=== PATIENT | male | born 1960 | race Caucasian/White ===

== ENCOUNTER 2017-12-24 07:35 | Inpatient (IN) | payer MEDICAID ==
[~2017-12-24] VITALS: Ht 172.7 cm; Wt 89.6 kg
[~2017-12-24 07:35] MED LIST: ALBUAER3 IN; CAR3125T PO; CLON05T PO; FURO20TA PO; LEVO112T4 PO; NICO2LOZ MT
[2017-12-24] MEDS ORDERED: chlordiazePOXIDE HCL 25 MG CAP PO ONE (08:00)
[2017-12-24] MEDS ORDERED: ASPirin 81 mg TAB PO ONE (08:00)
[2017-12-24 08:19] LABS: Basophils # (auto) 0.1 uL; Basophils % (auto) 1.3 % (0.0-2.0); Eosinophils # (auto) 0.1 uL; Eosinophils % (auto) 1.5 % (0.0-7.0); Hematocrit 51.6 % (41.0-53.0); Hemoglobin 17.3 g/dL (13.5-17.5); Lymphocytes # (auto) 1.4 uL; Lymphocytes % (auto) 18.2 % (10.0-50.0); Mean Corpuscular Hemoglobin 31.9 pg (28.0-32.0); Mean Corpuscular Hgb Conc. 33.5 g/dL (32.0-36.0); Mean Corpuscular Volume 95.3 fL (80.0-100.0); Monocytes # (auto) 0.7 uL; Monocytes % (auto) 8.5 % (0.0-12.0); Neutrophils # (auto) 5.4 uL; Neutrophils % (auto) 70.5 % (37.0-80.0); Nucleated Red Blood Cells % 0.1 %; Platelet Count (auto) 225 10^3/uL (140-450); Red Blood Cells 5.41 10^6/uL (4.5-5.90); Red Cell Distribution Width 15.8 % (11.8-14.3); White Blood Cell 7.7 10^3/uL (4.4-10.8)
[2017-12-24 08:52] LABS: Alanine Aminotransferase 56 U/L (16-61); Albumin 3.9 g/dL (3.4-5.0); Alkaline Phosphatase 85 U/L (45-117); Anion Gap 10 (5-15); Aspartate Aminotransferase 33 U/L (15-37); BUN/Creatinine Ratio 26.1; Bilirubin, Total 0.5 mg/dL (0.2-1.0); Blood Alcohol < 3.0 mg/dL (0-5); Blood Urea Nitrogen 35 mg/dL (7-18); Calcium 9.1 mg/dL (8.5-10.1); Carbon Dioxide 22 mmol/L (21-32); Chloride 109 mmol/L (98-107); GFR African American 70 mL/min; GFR Non-African American 58 mL/min; Glucose 106 mg/dL (74-106); Potassium 4.1 mmol/L (3.5-5.1); Sodium 141 mmol/L (136-145); Total Protein 7.6 g/dL (6.4-8.2)
[2017-12-24] MEDS ORDERED: NITROGLYCERIN 0.4 MG SL TAB SL PRN (09:15)
[2017-12-24] MEDS ORDERED: LACTULOSE 20Gm/30ML SOLN PO PRN (09:15)
[2017-12-24] MEDS ORDERED: ALBUTEROL SULF 2.5 MG/0.5ML(0.5%) NEB SOLN NEB PRN (09:30)
[2017-12-24] MEDS: CARVEDILOL 3.125 MG TAB PO SCH ×3 (10:00→22:06)
[2017-12-24] MEDS: FUROSEMIDE 40 MG/4 ML VIAL IV SCH (10:12)
[2017-12-24] MEDS: ENOXAPARIN SOD 40 MG/0.4 ML SYRINGE SC SCH (10:12)
[2017-12-24] MEDS: POTASSIUM CHL 20 Meq TABLET PO SCH (10:13)
[2017-12-24] MEDS: NITROGLYCERIN 0.2MG/HR TOPICAL PATCH TD SCH (10:13)
[2017-12-24] MEDS: LEVOTHYROXINE SODIUM 100 MCG TAB PO SCH (10:23)
[2017-12-24 11:00] LABS: Alcohol, Urine < 3.0 mg/dL (0-5); Amphetamine Screen, Urine POSITIVE (NEGATIVE); Barbiturate Scree,Urine NEGATIVE (NEGATIVE); Benzodiazephine Screen, Urine NEGATIVE (NEGATIVE); Cannabinoid Screen, Urine NEGATIVE (NEGATIVE); Cocaine Screen, Urine NEGATIVE (NEGATIVE); Opiate Scree,Urine NEGATIVE (NEGATIVE); Phencyclidine Screen, Urine NEGATIVE (NEGATIVE)
[2017-12-24] MEDS ORDERED: VENL150C58 PO (13:58)
[2017-12-24] MEDS: SODIUM CHLOR 0.9% PF (SALINE LOCK) 10ML VIAL/SYR IV SCH ×2 (14:04→22:06)
[2017-12-24] MEDS ORDERED: PROMETHAZINE HCL 25 MG/ML 1ML IV PRN (16:30)
[2017-12-24] MEDS ORDERED: LORazepam 0.5 MG TAB PO PRN (16:30)
[2017-12-24] MEDS ORDERED: KETOROLAC TROMETH 30 MG/ML 1ML VIAL IV PRN (16:30)
[2017-12-24] MEDS ORDERED: ACETAMINOPHEN 500 MG TAB PO PRN (16:30)
[2017-12-24] MEDS ORDERED: TEMAZEPAM 15 MG CAP PO PRN (16:30)
[2017-12-24] MEDS ORDERED: traMADol HCL 50 MG TAB PO PRN ×2 (16:30→17:15)
[2017-12-24] MEDS ORDERED: THIAMINE 100mg/ml INJ (200mg/2ml VIAL) IV ONE (17:00)
[2017-12-24] MEDS ORDERED: chlordiazePOXIDE HCL 25 MG CAP PO PRN (17:00)
[2017-12-24] MEDS: chlordiazePOXIDE HCL 5 MG CAP PO SCH (17:59)
[2017-12-24 19:34] VITALS: BP 101/69
[2017-12-24 21:58] VITALS: BP 100/62
[2017-12-24] MEDS: ATORVASTATIN 20 MG TAB PO SCH (22:05)
[2017-12-24 22:59] VITALS: BP 101/69
[2017-12-25] MEDS: chlordiazePOXIDE HCL 5 MG CAP PO SCH ×4 (00:20→17:41)
[2017-12-25] MEDS: SODIUM CHLOR 0.9% PF (SALINE LOCK) 10ML VIAL/SYR IV SCH ×3 (06:45→21:05)
[2017-12-25] MEDS: LEVOTHYROXINE SODIUM 100 MCG TAB PO SCH (07:01)
[2017-12-25 08:18] LABS: Basophils # (auto) 0.1 uL; Basophils % (auto) 0.9 % (0.0-2.0); Eosinophils # (auto) 0.3 uL; Eosinophils % (auto) 3.6 % (0.0-7.0); Hemoglobin 17.2 g/dL (13.5-17.5); Lymphocytes # (auto) 1.2 uL; Lymphocytes % (auto) 17.5 % (10.0-50.0); Mean Corpuscular Hemoglobin 32.6 pg (28.0-32.0); Mean Corpuscular Hgb Conc. 33.7 g/dL (32.0-36.0); Mean Corpuscular Volume 96.7 fL (80.0-100.0); Monocytes # (auto) 0.8 uL; Monocytes % (auto) 11.2 % (0.0-12.0); Neutrophils # (auto) 4.8 uL; Neutrophils % (auto) 66.8 % (37.0-80.0); Nucleated Red Blood Cells % 0.1 %; Platelet Count (auto) 216 10^3/uL (140-450); Red Blood Cells 5.27 10^6/uL (4.5-5.90); Red Cell Distribution Width 15.4 % (11.8-14.3); White Blood Cell 7.1 10^3/uL (4.4-10.8)
[2017-12-25 08:39] LABS: Albumin 3.7 g/dL (3.4-5.0); BUN/Creatinine Ratio 30.6; Bilirubin, Total 0.7 mg/dL (0.2-1.0); Calcium 8.6 mg/dL (8.5-10.1); Potassium 4.2 mmol/L (3.5-5.1); Total Protein 7.4 g/dL (6.4-8.2)
[2017-12-25 09:00] VITALS: BP 135/83
[2017-12-25] MEDS ORDERED: ASPirin 81 mg TAB PO SCH (10:00)
[2017-12-25] MEDS ORDERED: THIAMINE 100mg/ml INJ (200mg/2ml VIAL) IV SCH (10:00)
[2017-12-25] MEDS: NITROGLYCERIN 0.2MG/HR TOPICAL PATCH TD SCH (10:00)
[2017-12-25] MEDS: FUROSEMIDE 40 MG/4 ML VIAL IV SCH (10:47)
[2017-12-25] MEDS: POTASSIUM CHL 20 Meq TABLET PO SCH (10:48)
[2017-12-25] MEDS: CARVEDILOL 3.125 MG TAB PO SCH ×2 (10:48→21:04)
[2017-12-25] MEDS: ENOXAPARIN SOD 40 MG/0.4 ML SYRINGE SC SCH (10:49)
[2017-12-25 13:00] VITALS: BP 142/91
[2017-12-25] MEDS ORDERED: LISINOPRIL 5 MG TAB PO ONE (15:45)
[2017-12-25 17:05] VITALS: BP 150/90
[2017-12-25] MEDS: ATORVASTATIN 20 MG TAB PO SCH (21:04)
[2017-12-25 22:00] VITALS: BP 114/80
[2017-12-25] MEDS ORDERED: clonazePAM 0.5 MG TAB PO SCH (22:00)
[2017-12-26] MEDS: chlordiazePOXIDE HCL 5 MG CAP PO SCH ×2 (00:03→06:11)
[2017-12-26 05:00] VITALS: BP 114/77
[2017-12-26 06:07] LABS: BUN/Creatinine Ratio 32.1; Calcium 8.5 mg/dL (8.5-10.1); Potassium 3.7 mmol/L (3.5-5.1)
[2017-12-26] MEDS: SODIUM CHLOR 0.9% PF (SALINE LOCK) 10ML VIAL/SYR IV SCH (06:11)
[2017-12-26] MEDS: LEVOTHYROXINE SODIUM 100 MCG TAB PO SCH (06:11)
[2017-12-26 07:52] VITALS: BP 129/73
[2017-12-26 08:00] VITALS: BP 129/73
[2017-12-26] MEDS ORDERED: LISINOPRIL 5 MG TAB PO SCH (10:00)
[2017-12-26] MEDS ORDERED: VENLAFAXINE HCL 37.5mg XR cap PO SCH (10:00)
== END 2017-12-26 08:50 | disposition home or self-care (01) | DRG 812 ==
LOC: ER 07:35 → TELE 07:36 → TELE-WESTW 19:30
PROVIDERS: ADMIT Internal Medicine; ATTEND Internal Medicine
DX: T43.621A Poisoning by amphetamines, accidental (unintentional), initial encounter (principal); I11.0 Hypertensive heart disease with heart failure; I50.9 Heart failure, unspecified; I25.10 Atherosclerotic heart disease of native coronary artery without angina pectoris; F32.9 Major depressive disorder, single episode, unspecified; F15.90 Other stimulant use, unspecified, uncomplicated; E78.5 Hyperlipidemia, unspecified; E03.9 Hypothyroidism, unspecified; F41.9 Anxiety disorder, unspecified; J44.9 Chronic obstructive pulmonary disease, unspecified; F19.90 Other psychoactive substance use, unspecified, uncomplicated; K21.9 Gastro-esophageal reflux disease without esophagitis; Z82.49 Family history of ischemic heart disease and other diseases of the circulatory system; Z83.3 Family history of diabetes mellitus; Z88.5 Allergy status to narcotic agent; Z71.51 Drug abuse counseling and surveillance of drug abuser
CPT/HCPCS: 36415; 71046; 74176; 80048; 80053; 80061; 80307; 80320; 82550; 83880; 84443; 84484; 85025; 85379; 85652; 86141; 93005; 93306; 96372; 96374; 96375

== ENCOUNTER 2020-01-08 16:20 | Inpatient (IN) | payer MEDICAID ==
[~2020-01-08] VITALS: Ht 172.7 cm; Wt 94.5 kg
[~2020-01-08 16:20] MED LIST changes: +CLON0.5T3 PO; -CLON05T PO; -FURO20TA PO; +VENL150C58 PO
[2020-01-08] MEDS ORDERED: ALBUTEROL SULF 2.5 MG/0.5ML(0.5%) NEB SOLN NEB ONE (17:00)
[2020-01-08] MEDS ORDERED: IPRATROPIUM BROM 0.5 MG/2.5ML INH SOL NEB ONE (17:00)
[2020-01-08 17:12] LABS: Eosinophils # (auto) 0.4 10 ^3/uL (0-0.8); Mean Corpuscular Hemoglobin 30.1 pg (28.0-32.0); Platelet Count (auto) 268 10^3/uL (140-450); Red Blood Cells 5.93 10^6/uL (4.5-5.90)
[2020-01-08 17:13] LABS: Basophils # (auto) 0.1 10 ^3/uL (0-0.2); Basophils % (auto) 1.3 % (0.0-2.0); Eosinophils % (auto) 5.1 % (0.0-7.0); Hematocrit 54.7 % (41.0-53.0); Hemoglobin 17.8 g/dL (13.5-17.5); Lymphocytes # (auto) 1.7 10 ^3/uL (0.4-5.4); Lymphocytes % (auto) 21.3 % (10.0-50.0); Mean Corpuscular Hgb Conc. 32.6 g/dL (32.0-36.0); Mean Corpuscular Volume 92.4 fL (80.0-100.0); Monocytes # (auto) 0.8 10 ^3/uL (0-1.3); Monocytes % (auto) 10.2 % (0.0-12.0); Neutrophils # (auto) 4.9 10 ^3/uL (1.6-8.6); Neutrophils % (auto) 62.1 % (37.0-80.0); Nucleated Red Blood Cells % 0.1 %; Red Cell Distribution Width 15.5 % (11.8-14.3); White Blood Cell 7.9 10^3/uL (4.4-10.8)
[2020-01-08] MEDS ORDERED: methylPREDNISolone SOD SUCC 125 MG/2 ML VL IV ONE (17:30)
[2020-01-08] MEDS ORDERED: ONDANSETRON HCL 4 MG/2 ML VIAL IV ONE (17:30)
[2020-01-08 17:36] LABS: Alanine Aminotransferase 34 U/L (16-61); Albumin 3.5 g/dL (3.4-5.0); Anion Gap 7 (5-15); Blood Urea Nitrogen 16 mg/dL (7-18); Calcium 9.1 mg/dL (8.5-10.1); Carbon Dioxide 22 mmol/L (21-32); Chloride 110 mmol/L (98-107); Glucose 119 mg/dL (74-106); Potassium 4.3 mmol/L (3.5-5.1); Sodium 139 mmol/L (136-145)
[2020-01-08 17:41] LABS: Alkaline Phosphatase 88 U/L (45-117); Aspartate Aminotransferase 22 U/L (15-37); BUN/Creatinine Ratio 10.7; Bilirubin, Total 0.2 mg/dL (0.2-1.0); GFR African American 61 mL/min; GFR Non-African American 51 mL/min; Total Protein 7.3 g/dL (6.4-8.2)
[2020-01-08] MEDS ORDERED: cefTRIAXone 1GM/50ML D5W 50 ML IV ONE (19:00)
[2020-01-08 19:18] LABS: Urine Bacteria NONE SEEN /hpf (None Seen); Urine Blood Negative /uL (Negative); Urine Hyaline Cast MANY /lpf (0 - 2); Urine Mucus FEW (None Seen); Urine Specific Gravity 1.023 (1.001-1.035); Urine WBC 3 /hpf (0 - 3)
[2020-01-08] MEDS ORDERED: SODIUM CHLORIDE 0.9% 1,000 ML IV SCH (21:27)
[2020-01-08] MEDS ORDERED: METOCLOPRAMIDE HCL 5MG/ml INJ 2ml VIAL IV PRN (21:30)
[2020-01-08] MEDS ORDERED: DOCUSATE SOD 100 MG CAP PO PRN (21:30)
[2020-01-08] MEDS ORDERED: ACETAMINOPHEN 325 MG TAB PO PRN (21:30)
[2020-01-08] MEDS ORDERED: TEMAZEPAM 15 MG CAP PO PRN (21:30)
[2020-01-08] MEDS ORDERED: ALBUTEROL SULF 2.5 MG/0.5ML(0.5%) NEB SOLN NEB PRN (21:30)
[2020-01-08] MEDS ORDERED: IPRATROPIUM BROM 0.5 MG/2.5ML INH SOL NEB PRN (21:30)
[2020-01-08] MEDS: AZITHROMYCIN 250 MG TAB PO SCH (22:16)
[2020-01-08 23:21] VITALS: BP 145/108
--- NOTE | 2020-01-08 23:35 | NUR ---
MS admit from ER DAVIDXIAO admitted to tele/MS after no SBAR received. Patient oriented to LUIS MIGUEL BRYANT, RN primary RN, unit, room, bed, and unit policies regarding patient care and visiting hours. Patient weighed by bed scale and encouraged to call if they need something. All questions and concerns addressed, patient verbalized understanding.
[2020-01-09] VITALS (8 sets, daily range): BP systolic 114–148; BP diastolic 77–92
--- NOTE | 2020-01-09 03:26 | NUR ---
Patient reports feeling SOB. Spo2 is 97% on RA. Respirations are 22 and shallow. Placed on 2L NC. Will continue to monitor for changes PRN.
[2020-01-09 05:50] LABS: Basophils # (auto) 0 10 ^3/uL (0-0.2); Basophils % (auto) 0.4 % (0.0-2.0); Eosinophils # (auto) 0 10 ^3/uL (0-0.8); Hematocrit 52.2 % (41.0-53.0); Hemoglobin 16.5 g/dL (13.5-17.5); Lymphocytes # (auto) 0.6 10 ^3/uL (0.4-5.4); Lymphocytes % (auto) 5.4 % (10.0-50.0); Mean Corpuscular Hemoglobin 29.6 pg (28.0-32.0); Mean Corpuscular Hgb Conc. 31.7 g/dL (32.0-36.0); Mean Corpuscular Volume 93.6 fL (80.0-100.0); Monocytes # (auto) 0.1 10 ^3/uL (0-1.3); Monocytes % (auto) 0.8 % (0.0-12.0); Neutrophils # (auto) 11.3 10 ^3/uL (1.6-8.6); Neutrophils % (auto) 93.4 % (37.0-80.0); Platelet Count (auto) 239 10^3/uL (140-450); Red Blood Cells 5.58 10^6/uL (4.5-5.90); Red Cell Distribution Width 15.6 % (11.8-14.3); White Blood Cell 12.1 10^3/uL (4.4-10.8)
--- NOTE | 2020-01-09 06:05 | NUR ---
Respiratory note: ASSESSED PT FOR PRN MEDNEB TX. HR 104, RR 20, SPO2 96% ON 2LPM NASAL CANNULA. BREATH SOUNDS CLEAR/DIM T/O. NO S/S OF DISTRESS. MEDNEB TX NOT INDICATED AT THIS TIME. PT REMAINS ON ISOLATION PRECAUTIONS PENDING TEST RESULTS FOR COVID-19. PT AWARE TO CALL FOR RT IF NEEDED. WILL CONT TO MONITOR.
[2020-01-09 06:07] LABS: Potassium 4.8 mmol/L (3.5-5.1)
[2020-01-09 06:16] LABS: BUN/Creatinine Ratio 15.6; Calcium 8.7 mg/dL (8.5-10.1)
--- NOTE | 2020-01-09 07:04 | NUR ---
HOSPITALIST Spoke with Dr. Tanner regarding patient's home medication: Levothyroxine 125mcg QAM daily. New orders to continue while in patient. Will follow through.
--- NOTE | 2020-01-09 08:10 | NUR ---
Opening Shift Note Assumed care of patient, awake and alert. No S/S of distress/SOB or pain. Instructed on POC and to call for assist PRN, will continue to monitor for changes Q1hr and PRN.
[2020-01-09] MEDS ORDERED: methylPREDNISolone SOD SUCC 125 MG/2 ML VL IV SCH (10:00)
[2020-01-09] MEDS: cefTRIAXone 1GM/50ML D5W 50 ML IV SCH (10:50)
[2020-01-09] MEDS: AZITHROMYCIN 250 MG TAB PO SCH (10:50)
[2020-01-09] MEDS ORDERED: ALBUTEROL SULF HFA 90MCG INH 200DOSE IN SCH (12:00)
--- NOTE | 2020-01-09 12:00 | NUR ---
MDI THERAPY HELD AT THIS TIME, PENDING TEST RESULTS FOR COVID-19
[2020-01-09] MEDS ORDERED: CARVEDILOL 3.125 MG TAB PO ONE (12:15)
[2020-01-09] MEDS ORDERED: clonazePAM 0.5 MG TAB PO ONE (12:15)
--- NOTE | 2020-01-09 13:15 | NUR ---
Dr. Servin at bedside.
--- NOTE | 2020-01-09 13:20 | NUR ---
Report given to Michelle HERMAN, patient is going to room 206
--- NOTE | 2020-01-09 13:40 | NUR ---
Patient transferred to room 206. Patient was ambulated with steady gait by this nurse and Sally LANCASTER to [facility], no s/s of distress/sob noted /stated.
--- NOTE | 2020-01-09 13:45 | NUR ---
PATIENT TRANSFERRED TO ROOM 206. PATIENT IS AWAKE, ALERT, AND ORIENTED X4. PATIENT HAS NO S/S OF DISTRESS/SOB OR PAIN. INSTRUCTED PATIENT ON POC, PATIENT VERBALIZED UNDERSTANDING. BED IS IN LOWEST POSITION WITH SIDE RAILS RAISED, BED WHEELS LOCKED, AND CALL LIGHT IS WITHIN REACH. WILL CONTINUE TO MONITOR.
--- NOTE | 2020-01-09 14:11 | NUR ---
Nutrition Assessment Notes Please refer to link for full assessment notes. Est Energy needs: [id number] kcals (17-20 kcal/kgBW) Est Protein needs: 74-92 gms/day (0.8-1.0 gm/kgBW) Will continue to monitor and reassess prn. Addendum: 01/09/20 at [email or web address] Amended: Links added.
--- NOTE | 2020-01-09 18:58 | NUR ---
CLOSING SHIFT NOTE ENDORSED CARE TO AIRCRAFT WORKER RN . PATIENT HAS NO S/S OF DISTRESS/SOB OR PAIN AT THIS TIME.
--- NOTE | 2020-01-09 19:00 | NUR ---
Opening Shift Note Assumed care of patient, awake and alert. No S/S of distress/SOB or pain. Instructed on POC and to call for assist PRN, will continue to monitor for changes.
--- NOTE | 2020-01-09 19:00 | NUR ---
Respiratory note: PT ASSESSED FOR PRN MED NEB TX. HR 108, RR 16, SPO2 96% ON RA. NO S/S OF ANY RESPIRATORY DISTRESS NOTED. ADVISED PT TO CALL IF TX IS NEEDED.
--- NOTE | 2020-01-09 19:10 | NUR ---
OPENING SHIFT NOTE ASSUMED CARE OF PATIENT. PATIENT IS AWAKE, ALERT, AND ORIENTED X4. PATIENT HAS NO S/S OF DISTRESS/SOB, PATIENT COMPLAINED OF PAIN. INSTRUCTED PATIENT ON POC, PATIENT VERBALIZED UNDERSTANDING. BED IS IN LOWEST POSITION WITH SIDE RAILS RAISED X2, BED WHEELS LOCKED, NEAL IS HANGING BELOW BLADDER ALSO PATIENT HAS BILATERAL NEPHROSTOME TUBES AND IS DRAINING YELLOW URINE WITH LOT OF SEDIMENT, BEDSIDE COMMODE AND CALL LIGHT IS WITHIN REACH. WILL CONTINUE TO MONITOR. Addendum: 01/10/20 at 0302 by NISH PAGE RN WRONG PATIENT
[2020-01-09] MEDS: clonazePAM 0.5 MG TAB PO SCH (21:24)
[2020-01-09] MEDS: CARVEDILOL 3.125 MG TAB PO SCH (21:26)
[2020-01-09] MEDS ORDERED: CARVEDILOL 3.125 MG TAB PO SCH (22:00)
[2020-01-10 05:14] VITALS: BP 129/82
[2020-01-10 05:37] LABS: Calcium 8.5 mg/dL (8.5-10.1); Potassium 4.9 mmol/L (3.5-5.1)
[2020-01-10] MEDS ORDERED: LEVOTHYROXINE SODIUM 50 MCG TAB PO SCH (07:00)
[2020-01-10] MEDS ORDERED: LEVOTHYROXINE SODIUM 112 MCG TAB PO SCH (07:00)
[2020-01-10 09:00] VITALS: BP 134/79
[2020-01-10] MEDS: CARVEDILOL 3.125 MG TAB PO SCH (10:00)
[2020-01-10] MEDS ORDERED: VENLAFAXINE HCL 37.5mg XR cap PO SCH (10:00)
[2020-01-10] MEDS: cefTRIAXone 1GM/50ML D5W 50 ML IV SCH (10:16)
[2020-01-10] MEDS: AZITHROMYCIN 250 MG TAB PO SCH (10:17)
[2020-01-10] MEDS: clonazePAM 0.5 MG TAB PO SCH (10:17)
[2020-01-10 13:00] VITALS: BP 144/98
[2020-01-10] MEDS ORDERED: DOXY-286 PO (15:10)
[2020-01-10] MEDS ORDERED: AMLO10TA13 PO (15:12)
[2020-01-10 16:01] VITALS: BP 134/79
--- NOTE | 2020-01-10 17:35 | NUR ---
Patient discharged via wheelchair along with all personal belongings, no distress noted at time of departure.
== END 2020-01-10 16:30 | disposition home or self-care (01) | DRG 194 ==
LOC: ER 16:20 → EDBD 16:20 → OVERFLOW 16:21 → EAST 23:35 → CENTRAL 01-09 13:40
PROVIDERS: ADMIT Hospitalist; ATTEND Internal Medicine Nephrology
DX: I13.0 Hypertensive heart and chronic kidney disease with heart failure and stage 1 through stage 4 chronic kidney disease, or unspecified chronic kidney disease (principal); E03.9 Hypothyroidism, unspecified; E11.22 Type 2 diabetes mellitus with diabetic chronic kidney disease; E66.9 Obesity, unspecified; E78.5 Hyperlipidemia, unspecified; I25.10 Atherosclerotic heart disease of native coronary artery without angina pectoris; N17.0 Acute kidney failure with tubular necrosis; K21.9 Gastro-esophageal reflux disease without esophagitis; F41.9 Anxiety disorder, unspecified; F32.9 Major depressive disorder, single episode, unspecified; I50.33 Acute on chronic diastolic (congestive) heart failure; J44.9 Chronic obstructive pulmonary disease, unspecified; N18.3 Chronic kidney disease, stage 3 (moderate); Z20.828 Contact with and (suspected) exposure to other viral communicable diseases; Z80.3 Family history of malignant neoplasm of breast; Z82.49 Family history of ischemic heart disease and other diseases of the circulatory system; Z83.3 Family history of diabetes mellitus; Z87.891 Personal history of nicotine dependence; Z88.5 Allergy status to narcotic agent; Z79.84 Long term (current) use of oral hypoglycemic drugs; Z68.31 Body mass index [BMI] 31.0-31.9, adult
CPT/HCPCS: 36415; 36600; 71045; 80048; 80053; 80061; 81001; 82805; 82962; 83036; 83605; 83735; 83880; 84484; 85025; 87040; 87070; 87426; 87804; 87880; 93005; 93306; 94640; 96361; 96365; 96375; G0378; J0696

== ENCOUNTER 2022-04-21 07:54 | Day surgery (SDC) | payer MEDICAID ==
[2022-04-21] VITALS (7 sets, daily range): BP systolic 90–119; BP diastolic 49–84
[~2022-04-21] VITALS: Ht 172.7 cm; Wt 94.3 kg
[~2022-04-21 07:54] MED LIST changes: +FURO1TAB33 PO; -LEVO112T4 PO; +LEVO125T7 PO; +LOSA25TA38 PO; -NICO2LOZ MT; +POM
[2022-04-21] MEDS ORDERED: HEPARIN SODIUM (PORCINE) 5000 UNITS/ML 1ML VIAL ONE (11:13)
[2022-04-21] MEDS ORDERED: fentaNYL CITRATE 100 MCG/2 ML VL ONE (11:13)
[2022-04-21] MEDS ORDERED: VERAPAMIL 2.5MG/ML INJ 2ML VIAL IV ONE (11:13)
[2022-04-21] MEDS ORDERED: ANGIOMAX 250 MG VIAL IV ONE (11:13)
[2022-04-21] MEDS ORDERED: SODIUM CHL 0.9% 0 ML ONE (11:14)
[2022-04-21] MEDS ORDERED: MIDAZOLAM HCL 2MG/2ML 2ml VIAL (1mg/ml) ONE (11:14)
== END 2022-04-21 14:55 | disposition home or self-care (01) ==
LOC: CATH 07:54
PROVIDERS: ATTEND Internal Medicine
DX: R94.39 Abnormal result of other cardiovascular function study (principal); I25.118 Atherosclerotic heart disease of native coronary artery with other forms of angina pectoris; I42.8 Other cardiomyopathies; I50.9 Heart failure, unspecified; Z88.8 Allergy status to other drugs, medicaments and biological substances; Z20.822 Contact with and (suspected) exposure to COVID-19
CPT/HCPCS: 93458; C1769; C1887; C1894; J1644; J2250; J3010; U0003; 99152

== ENCOUNTER 2023-08-02 19:18 | Emergency (ER) | payer MEDICAID ==
[~2023-08-02] VITALS: Ht 182.9 cm; Wt 81.8 kg
[~2023-08-02 19:18] MED LIST changes: +LOSA-533 PO; -LOSA25TA38 PO
[2023-08-02 19:43] LABS: Hematocrit 49.3 % (41.0-53.0); Hemoglobin 16.1 g/dL (13.5-17.5); Mean Corpuscular Hgb Conc. 32.6 g/dL (32.0-36.0); Mean Corpuscular Volume 95.1 fL (80.0-100.0); Red Blood Cells 5.19 10^6/uL (4.5-5.90); White Blood Cell 7.8 10^3/uL (4.4-10.8)
[2023-08-02] MEDS: methylPREDNISolone SOD SUCC 125 MG/2 ML VL IV ONE (19:45)
[2023-08-02] MEDS: ALBUTEROL SULF 2.5 MG/0.5ML(0.5%) NEB SOLN HHN ONE (19:46)
[2023-08-02] MEDS: IPRATROPIUM BROM 0.5 MG/2.5ML INH SOL HHN ONE (19:46)
[2023-08-02 19:53] LABS: Band Neutrophils % (manual) 0; Basophils % (manual) 0 (0.0-2.0); Blast Cells 0; Metamyelocytes % 0; Myelocytes % 0; Promyelocytes % 0; Reactive Lymphocytes 0
[2023-08-02 20:05] LABS: Eosinophils % (manual) 13 (0-7); Lymphocytes % (manual) 28 (10.0-50.0); Monocytes % (manual) 8 (0-12); Platelet Estimate Adequate
[2023-08-02 20:23] LABS: Alanine Aminotransferase 26 U/L (7-40); Albumin 3.9 g/dL (3.2-4.8); Alkaline Phosphatase 91 U/L (46-116); Anion Gap 6 (5-15); Aspartate Aminotransferase 23 U/L (13-40); BUN/Creatinine Ratio 14.4 (10.0-20.0); Blood Urea Nitrogen 22 mg/dL (9-23); Calcium 7.9 mg/dL (8.5-10.1); Carbon Dioxide 27 mmol/L (20-30); Chloride 110 mmol/L (98-107); Glucose 73 mg/dL (74-106); Potassium 4.8 mmol/L (3.5-5.1); Sodium 143 mmol/L (136-145)
[2023-08-02 20:24] LABS: Bilirubin, Total 0.2 mg/dL (0.2-1.0); Total Protein 6.5 g/dL (5.7-8.2)
[2023-08-02] MEDS ORDERED: METH4PAK PO (21:01)
[2023-08-02 21:26] VITALS: BP 128/90; PULSE 97; RESP 18; TEMP 97.8; O2SAT 94
== END 2023-08-02 21:11 | disposition admitted as inpatient to this hospital (09) ==
LOC: ER 19:18 → EDBD 19:18 → ER 21:11
DX: J44.1 Chronic obstructive pulmonary disease with (acute) exacerbation (principal); I13.0 Hypertensive heart and chronic kidney disease with heart failure and stage 1 through stage 4 chronic kidney disease, or unspecified chronic kidney disease; N18.9 Chronic kidney disease, unspecified; I50.9 Heart failure, unspecified; I25.10 Atherosclerotic heart disease of native coronary artery without angina pectoris; F41.9 Anxiety disorder, unspecified; F32.9 Major depressive disorder, single episode, unspecified; E78.5 Hyperlipidemia, unspecified; K21.9 Gastro-esophageal reflux disease without esophagitis; F17.210 Nicotine dependence, cigarettes, uncomplicated; Z98.890 Other specified postprocedural states
CPT/HCPCS: 36415; 71045; 80053; 83880; 84484; 85007; 85027; 93005; 94640; 96374; 99285; J2930; J7644

== ENCOUNTER 2023-09-13 11:13 | Inpatient (IN) | payer MEDICAID ==
[~2023-09-13] VITALS: Ht 175.3 cm; Wt 104.0 kg
[~2023-09-13 11:13] MED LIST changes: +METH4PAK PO
[2023-09-13] MEDS: methylPREDNISolone SOD SUCC 125 MG/2 ML VL IV ONE (11:38)
[2023-09-13 11:51] LABS: Basophils # (auto) 0.1 10 ^3/uL (0-0.2); Basophils % (auto) 1.4 % (0.0-2.0); Eosinophils # (auto) 0.3 10 ^3/uL (0-0.8); Eosinophils % (auto) 5.1 % (0.0-7.0); Hematocrit 49.8 % (41.0-53.0); Hemoglobin 15.9 g/dL (13.5-17.5); Lymphocytes # (auto) 1.4 10 ^3/uL (0.4-5.4); Lymphocytes % (auto) 20.9 % (10.0-50.0); Mean Corpuscular Hgb Conc. 31.9 g/dL (32.0-36.0); Mean Corpuscular Volume 94.2 fL (80.0-100.0); Monocytes # (auto) 0.6 10 ^3/uL (0-1.3); Neutrophils # (auto) 4.1 10 ^3/uL (1.6-8.6); Neutrophils % (auto) 62.6 % (37.0-80.0); Nucleated Red Blood Cells % 0.1 %; Red Blood Cells 5.29 10^6/uL (4.5-5.90); Red Cell Distribution Width 15.6 % (11.8-14.3); White Blood Cell 6.5 10^3/uL (4.4-10.8)
[2023-09-13 12:00] VITALS: PULSE 76; RESP 23; O2SAT 100
[2023-09-13 12:06] LABS: INR 1.05 (0.9-1.15); Partial Thromboplastin Time 25.3 SEC (24.5-34.5); Prothrombin Time 11.1 sec (9.3-11.8)
[2023-09-13 12:09] LABS: Alanine Aminotransferase 32 U/L (7-40); Albumin 4.1 g/dL (3.2-4.8); Alkaline Phosphatase 83 U/L (46-116); Anion Gap 4 (5-15); Aspartate Aminotransferase 36 U/L (13-40); BUN/Creatinine Ratio 11.3 (10.0-20.0); Bilirubin, Total 0.3 mg/dL (0.2-1.0); Blood Urea Nitrogen 15 mg/dL (9-23); Calcium 9.3 mg/dL (8.5-10.1); Carbon Dioxide 27 mmol/L (20-30); Chloride 108 mmol/L (98-107); Glucose 94 mg/dL (74-106); Potassium 4.4 mmol/L (3.5-5.1); Sodium 139 mmol/L (136-145); Total Protein 6.3 g/dL (5.7-8.2)
[2023-09-13 13:23] LABS: Urine Bacteria None Seen /hpf (None Seen)
[2023-09-13 13:36] LABS: Urine Blood Negative /uL (Negative); Urine Clarity Clear (Clear); Urine Color Light-Yellow (Yellow); Urine Protein, UAD Negative (Negative); Urine Specific Gravity 1.017 (1.001-1.035); Urine Urobilinogen Normal (Negative); Urine WBC <1 /hpf (0 - 3)
[2023-09-13] MEDS: IPRATROPIUM BROM 0.5 MG/2.5ML INH SOL HHN ONE (13:42)
[2023-09-13] MEDS: ALBUTEROL SULF 2.5 MG/0.5ML(0.5%) NEB SOLN HHN ONE (13:42)
[2023-09-13] MEDS ORDERED: ALBUTEROL SULF 2.5 MG/0.5ML(0.5%) NEB SOLN NEB PRN (15:45)
[2023-09-13] MEDS: PANTOPRAZOLE 40 MG TAB PO ONE (16:41)
[2023-09-13] MEDS: FUROSEMIDE 20 MG/2 ML VIAL IV ONE (16:41)
[2023-09-13 16:46] LABS: Triglycerides 122 mg/dL (< 150)
[2023-09-13 16:47] LABS: LDL Cholesterol 90 mg/dL (< 100)
[2023-09-13 16:49] LABS: Cholesterol 153 mg/dL (< 200); HDL Cholesterol 47 mg/dL (40-59)
[2023-09-13 18:35] VITALS: PULSE 91; RESP 22; O2SAT 95; O2SAT 96
[2023-09-13] MEDS: ALBUTEROL SULF 2.5 MG/0.5ML(0.5%) NEB SOLN NEB SCH (18:35)
[2023-09-13] MEDS: IPRATROPIUM BROM 0.5 MG/2.5ML INH SOL NEB SCH (18:35)
[2023-09-13 18:41] VITALS: PULSE 91; RESP 20; O2SAT 98
[2023-09-13 19:30] VITALS: PULSE 86; RESP 13; O2SAT 92
[2023-09-13] MEDS: clonazePAM 0.5 MG TAB PO SCH (20:41)
[2023-09-13] MEDS: ATORVASTATIN 20 MG TAB PO SCH (22:10)
[2023-09-13] MEDS: CARVEDILOL 3.125 MG TAB PO SCH (22:10)
[2023-09-14] VITALS (11 sets, daily range): BP systolic 107–137; BP diastolic 71–95; PULSE 72–97; RESP 16–20; TEMP 97.4–98.4; O2SAT 94–97
[2023-09-14 06:29] LABS: Basophils # (auto) 0 10 ^3/uL (0-0.2); Basophils % (auto) 0.3 % (0.0-2.0); Eosinophils # (auto) 0 10 ^3/uL (0-0.8); Hemoglobin 15.5 g/dL (13.5-17.5); Lymphocytes # (auto) 0.7 10 ^3/uL (0.4-5.4); Lymphocytes % (auto) 5.1 % (10.0-50.0); Mean Corpuscular Hemoglobin 30.4 pg (28.0-32.0); Mean Corpuscular Hgb Conc. 32.9 g/dL (32.0-36.0); Mean Corpuscular Volume 92.3 fL (80.0-100.0); Monocytes # (auto) 0.6 10 ^3/uL (0-1.3); Monocytes % (auto) 4.5 % (0.0-12.0); Neutrophils # (auto) 12.3 10 ^3/uL (1.6-8.6); Neutrophils % (auto) 90.1 % (37.0-80.0); Red Cell Distribution Width 15.2 % (11.8-14.3); White Blood Cell 13.7 10^3/uL (4.4-10.8)
[2023-09-14] MEDS: LEVOTHYROXINE SODIUM 25 MCG TAB PO SCH (06:31)
[2023-09-14] MEDS: LEVOTHYROXINE SODIUM 100 MCG TAB PO SCH (06:31)
[2023-09-14 07:01] LABS: Alanine Aminotransferase 24 U/L (7-40); Alkaline Phosphatase 66 U/L (46-116); Anion Gap 9 (5-15); Aspartate Aminotransferase 20 U/L (13-40); BUN/Creatinine Ratio 13.7 (10.0-20.0); Bilirubin, Total 0.5 mg/dL (0.2-1.0); Blood Urea Nitrogen 18 mg/dL (9-23); Calcium 9.4 mg/dL (8.5-10.1); Carbon Dioxide 23 mmol/L (20-30); Chloride 107 mmol/L (98-107); Glucose 123 mg/dL (74-106); Potassium 4.6 mmol/L (3.5-5.1); Sodium 139 mmol/L (136-145); Total Protein 6.2 g/dL (5.7-8.2)
[2023-09-14] MEDS: NICOTINE 14 MG/24HR TOPICAL PATCH TD SCH (07:36)
[2023-09-14] MEDS: ENOXAPARIN SOD 40 MG/0.4 ML SYRINGE SC SCH (10:02)
[2023-09-14] MEDS: PANTOPRAZOLE 40 MG TAB PO SCH (10:03)
[2023-09-14] MEDS: LOSARTAN POTASSIUM 25 MG TAB PO SCH (10:03)
[2023-09-14] MEDS: FUROSEMIDE 20 MG/2 ML VIAL IV SCH (10:04)
[2023-09-14] MEDS: VENLAFAXINE HCL 37.5mg XR cap PO SCH (10:13)
[2023-09-14] MEDS: metOLazone 5 MG TAB PO ONE (15:07)
[2023-09-14] MEDS ORDERED: CARV6.2551 PO (16:25)
[2023-09-14] MEDS ORDERED: TAMS0.4C36 PO (16:31)
[2023-09-14] MEDS ORDERED: DAPA1TAB4 PO (16:31)
[2023-09-14] MEDS ORDERED: VENL75CA78 PO (16:31)
[2023-09-15] VITALS (17 sets, daily range): BP systolic 92–137; BP diastolic 60–95; PULSE 67–112; RESP 16–24; TEMP 97.5–98.7; O2SAT 94–100
[2023-09-15] MEDS: ALBUTEROL SULF 2.5 MG/0.5ML(0.5%) NEB SOLN NEB PRN (04:12)
[2023-09-15] MEDS: IPRATROPIUM BROM 0.5 MG/2.5ML INH SOL NEB PRN (04:12)
[2023-09-15] MEDS: SACUBITRIL-VALSARTAN 24mg/26mg TAB PO SCH (10:13)
[2023-09-15 12:35] LABS: Amphetamine Screen, Urine Neg (NEGATIVE); Barbiturate Scree,Urine Neg (NEGATIVE); Benzodiazephine Screen, Urine Neg (NEGATIVE)
[2023-09-15 12:36] LABS: Cannabinoid Screen, Urine Neg (NEGATIVE); Cocaine Screen, Urine Neg (NEGATIVE); Opiate Scree,Urine Neg (NEGATIVE); Phencyclidine Screen, Urine Neg (NEGATIVE)
[2023-09-15] MEDS: ACETAMINOPHEN 325 MG TAB PO PRN (13:48)
[2023-09-16 01:00] VITALS: BP 86/65; PULSE 80; RESP 18; TEMP 98; O2SAT 93
[2023-09-16 05:00] VITALS: BP 91/58; PULSE 88; RESP 20; TEMP 98; O2SAT 95
[2023-09-16 07:12] VITALS: O2SAT 99
[2023-09-16 08:56] VITALS: BP 95/66; PULSE 86; RESP 21; TEMP 98.4; O2SAT 98
[2023-09-16] MEDS ORDERED: SACU1TAB PO (11:36)
[2023-09-16] MEDS ORDERED: FURO1TAB33 PO (11:36)
[2023-09-16 11:41] VITALS: PULSE 90
[2023-09-16 12:35] VITALS: BP 92/68; PULSE 77; RESP 19; TEMP 98.8; O2SAT 98
== END 2023-09-16 14:33 | disposition home or self-care (01) | DRG 140 ==
LOC: ER 11:13 → EDBD 11:13 → OVERFLOW 15:46 → WEST WING 09-14 08:02 → TELE-WESTW 09-15 04:49
PROVIDERS: ADMIT Nurse Practitioner Family; ATTEND Family Medicine
DX: J44.1 Chronic obstructive pulmonary disease with (acute) exacerbation (principal); J96.21 Acute and chronic respiratory failure with hypoxia; I50.43 Acute on chronic combined systolic (congestive) and diastolic (congestive) heart failure; I11.0 Hypertensive heart disease with heart failure; E03.9 Hypothyroidism, unspecified; F41.9 Anxiety disorder, unspecified; K21.9 Gastro-esophageal reflux disease without esophagitis; F17.210 Nicotine dependence, cigarettes, uncomplicated; F32.A Depression, unspecified; E78.00 Pure hypercholesterolemia, unspecified; I25.10 Atherosclerotic heart disease of native coronary artery without angina pectoris; Z95.0 Presence of cardiac pacemaker; Z82.49 Family history of ischemic heart disease and other diseases of the circulatory system; Z83.3 Family history of diabetes mellitus; Z80.3 Family history of malignant neoplasm of breast
CPT/HCPCS: 36415; 71045; 80053; 80061; 80307; 80320; 81001; 82962; 83880; 84443; 84484; 85025; 85610; 85730; 93005; 93306; 94640; 96374; G0378

== ENCOUNTER 2024-01-31 07:40 | Emergency (ER) | payer MEDICAID ==
[~2024-01-31] VITALS: Ht 172.7 cm; Wt 86.4 kg
[~2024-01-31 07:40] MED LIST changes: -ALBUAER3 IN; -CAR3125T PO; +CARV6.2551 PO; +DAPA1TAB4 PO; -METH4PAK PO; -POM; +SACU1TAB PO; +TAMS0.4C39 PO; +VENL75CA78 PO
[2024-01-31 07:49] VITALS: RESP 20; O2SAT 97
[2024-01-31 07:52] VITALS: BP 115/65; PULSE 78; RESP 20; TEMP 97.5; O2SAT 97
[2024-01-31 08:09] LABS: Basophils # (auto) 0 10 ^3/uL (0-0.2); Basophils % (auto) 0.5 % (0.0-2.0); Eosinophils # (auto) 0.6 10 ^3/uL (0-0.8); Eosinophils % (auto) 9.4 % (0.0-7.0); Hemoglobin 14.9 g/dL (13.5-17.5); Lymphocytes # (auto) 1.5 10 ^3/uL (0.4-5.4); Lymphocytes % (auto) 21.5 % (10.0-50.0); Mean Corpuscular Hemoglobin 31.6 pg (28.0-32.0); Mean Corpuscular Hgb Conc. 33.9 g/dL (32.0-36.0); Mean Corpuscular Volume 93.1 fL (80.0-100.0); Monocytes # (auto) 0.6 10 ^3/uL (0-1.3); Monocytes % (auto) 8.5 % (0.0-12.0); Neutrophils # (auto) 4.1 10 ^3/uL (1.6-8.6); Neutrophils % (auto) 60.1 % (37.0-80.0); Nucleated Red Blood Cells % 0.3 %; Platelet Count (auto) 206 10^3/uL (140-450); Red Blood Cells 4.73 10^6/uL (4.5-5.90); Red Cell Distribution Width 15.3 % (11.8-14.3); White Blood Cell 6.8 10^3/uL (4.4-10.8)
[2024-01-31] MEDS ORDERED: methylPREDNISolone SOD SUCC 125 MG/2 ML VL IV ONE (08:15)
[2024-01-31] MEDS ORDERED: IPRATROPIUM BROM 0.5 MG/2.5ML INH SOL NEB ONE (08:15)
[2024-01-31] MEDS ORDERED: ALBUTEROL SULF 2.5 MG/0.5ML(0.5%) NEB SOLN NEB ONE (08:15)
[2024-01-31 08:18] LABS: Chloride 110 mmol/L (98-107); Potassium 4.2 mmol/L (3.5-5.1); Sodium 142 mmol/L (136-145)
[2024-01-31 08:19] LABS: Anion Gap 5 (5-15); Calcium 9.1 mg/dL (8.7-10.4); Carbon Dioxide 27 mmol/L (20-30)
[2024-01-31 08:24] LABS: BUN/Creatinine Ratio 13.6 (10.0-20.0); Blood Urea Nitrogen 18 mg/dL (9-23); Glucose 92 mg/dL (74-106)
[2024-02-01] MEDS ORDERED: VENL150T34 PO ×2 (04:59)
== END 2024-01-31 09:11 | disposition left against medical advice (07) ==
LOC: ER 07:40 → EDBD 07:40 → ER 08:22
DX: J96.00 Acute respiratory failure, unspecified whether with hypoxia or hypercapnia (principal); J44.1 Chronic obstructive pulmonary disease with (acute) exacerbation; I13.0 Hypertensive heart and chronic kidney disease with heart failure and stage 1 through stage 4 chronic kidney disease, or unspecified chronic kidney disease; N18.9 Chronic kidney disease, unspecified; I50.9 Heart failure, unspecified; K21.9 Gastro-esophageal reflux disease without esophagitis; E78.5 Hyperlipidemia, unspecified; F17.210 Nicotine dependence, cigarettes, uncomplicated
CPT/HCPCS: 36415; 80048; 83880; 84484; 85025; 99291

== ENCOUNTER 2024-01-31 15:38 | Inpatient (IN) | payer MEDICAID ==
[~2024-01-31] VITALS: Ht 172.7 cm; Wt 84.1 kg
[2024-01-31 16:27] LABS: Basophils # (auto) 0 10 ^3/uL (0-0.2); Basophils % (auto) 0.4 % (0.0-2.0); Eosinophils # (auto) 0.6 10 ^3/uL (0-0.8); Eosinophils % (auto) 8.9 % (0.0-7.0); Hematocrit 44.5 % (41.0-53.0); Hemoglobin 14.8 g/dL (13.5-17.5); Lymphocytes # (auto) 1.6 10 ^3/uL (0.4-5.4); Lymphocytes % (auto) 23.8 % (10.0-50.0); Mean Corpuscular Hemoglobin 30.9 pg (28.0-32.0); Mean Corpuscular Hgb Conc. 33.2 g/dL (32.0-36.0); Mean Corpuscular Volume 93.2 fL (80.0-100.0); Monocytes # (auto) 0.5 10 ^3/uL (0-1.3); Monocytes % (auto) 8.2 % (0.0-12.0); Neutrophils # (auto) 3.9 10 ^3/uL (1.6-8.6); Neutrophils % (auto) 58.7 % (37.0-80.0); Platelet Count (auto) 212 10^3/uL (140-450); Red Blood Cells 4.77 10^6/uL (4.5-5.90); Red Cell Distribution Width 15.4 % (11.8-14.3); White Blood Cell 6.7 10^3/uL (4.4-10.8)
[2024-01-31 16:51] LABS: Alanine Aminotransferase 50 U/L (7-40); Albumin 4.1 g/dL (3.2-4.8); Alkaline Phosphatase 81 U/L (46-116); Anion Gap 3 (5-15); Aspartate Aminotransferase 52 U/L (13-40); BUN/Creatinine Ratio 14.2 (10.0-20.0); Bilirubin, Total 0.3 mg/dL (0.2-1.0); Blood Urea Nitrogen 18 mg/dL (9-23); Calcium 9.3 mg/dL (8.7-10.4); Carbon Dioxide 25 mmol/L (20-30); Chloride 110 mmol/L (98-107); Glucose 78 mg/dL (74-106); Lipase 34 U/L (12-53); Potassium 4.3 mmol/L (3.5-5.1); Sodium 138 mmol/L (136-145); Total Protein 6.5 g/dL (5.7-8.2)
[2024-01-31] MEDS ORDERED: DOCUSATE SOD 100 MG CAP PO PRN (19:45)
[2024-01-31] MEDS ORDERED: ONDANSETRON HCL 4 MG/2 ML VIAL IV PRN (19:45)
[2024-01-31] MEDS ORDERED: IBUPROFEN 600 MG TAB PO PRN (19:45)
[2024-01-31] MEDS ORDERED: MORPHINE SULFATE INJ 2 MG/ml SYRG IV PRN (21:00)
[2024-01-31] MEDS ORDERED: NITROGLYCERIN 0.4 MG SL TAB SL PRN (21:00)
[2024-01-31] MEDS: SODIUM CHLOR 0.9% PF (SALINE LOCK) 10ML VIAL/SYR IV SCH (22:00)
[2024-01-31] MEDS: CARVEDILOL 3.125 MG TAB PO SCH (22:00)
[2024-01-31] MEDS: FUROSEMIDE 40 MG/4 ML VIAL IV ONE (23:01)
[2024-02-01] VITALS (14 sets, daily range): BP systolic 97–133; BP diastolic 56–95; PULSE 70–107; RESP 16–22; TEMP 97.6–98.4; O2SAT 92–99
[2024-02-01] MEDS: HYDROcodone-ACET 5/325MG TAB PO PRN (03:24)
[2024-02-01] MEDS ORDERED: VENL150T34 PO ×2 (04:59)
[2024-02-01] MEDS: LEVOTHYROXINE SODIUM 50 MCG TAB PO SCH (05:45)
[2024-02-01 06:56] LABS: Basophils # (auto) 0.1 10 ^3/uL (0-0.2); Basophils % (auto) 1.5 % (0.0-2.0); Eosinophils # (auto) 0.6 10 ^3/uL (0-0.8); Eosinophils % (auto) 7.1 % (0.0-7.0); Hematocrit 45.9 % (41.0-53.0); Hemoglobin 15.5 g/dL (13.5-17.5); Lymphocytes # (auto) 1.6 10 ^3/uL (0.4-5.4); Lymphocytes % (auto) 19.7 % (10.0-50.0); Mean Corpuscular Hemoglobin 31.1 pg (28.0-32.0); Mean Corpuscular Hgb Conc. 33.9 g/dL (32.0-36.0); Mean Corpuscular Volume 91.7 fL (80.0-100.0); Monocytes # (auto) 0.8 10 ^3/uL (0-1.3); Monocytes % (auto) 10.2 % (0.0-12.0); Neutrophils % (auto) 61.5 % (37.0-80.0); Nucleated Red Blood Cells % 0.1 %; Platelet Count (auto) 228 10^3/uL (140-450); Red Cell Distribution Width 15.1 % (11.8-14.3)
[2024-02-01 07:15] LABS: Alanine Aminotransferase 45 U/L (7-40); Albumin 4.4 g/dL (3.2-4.8); Alkaline Phosphatase 81 U/L (46-116); Anion Gap 8 (5-15); Aspartate Aminotransferase 38 U/L (13-40); BUN/Creatinine Ratio 14.3 (10.0-20.0); Bilirubin, Total 0.8 mg/dL (0.2-1.0); Blood Urea Nitrogen 20 mg/dL (9-23); Calcium 9.7 mg/dL (8.7-10.4); Carbon Dioxide 25 mmol/L (20-30); Chloride 107 mmol/L (98-107); Glucose 90 mg/dL (74-106); Potassium 4.2 mmol/L (3.5-5.1); Sodium 140 mmol/L (136-145)
[2024-02-01] MEDS: ASPirin 81 mg TAB PO SCH (08:29)
[2024-02-01] MEDS: FAMOTIDINE (10MG/ML) 2ML VL IV SCH (08:29)
[2024-02-01] MEDS: FUROSEMIDE 40 MG/4 ML VIAL IV SCH (08:29)
[2024-02-01] MEDS: ALBUTEROL SULF 2.5 MG/0.5ML(0.5%) NEB SOLN NEB ONE (09:51)
[2024-02-01] MEDS: IPRATROPIUM BROM 0.5 MG/2.5ML INH SOL NEB ONE (09:51)
[2024-02-01] MEDS: CARVEDILOL 3.125 MG TAB PO SCH (10:00)
[2024-02-01] MEDS ORDERED: ASPirin 81 mg TAB PO SCH (10:00)
[2024-02-01 10:22] LABS: Urine Bacteria None Seen /hpf (None Seen); Urine WBC None Seen /hpf (0 - 3)
[2024-02-01 10:29] LABS: Urine Blood Negative /uL (Negative); Urine Clarity Clear (Clear); Urine Protein, UAD Negative (Negative); Urine Specific Gravity 1.006 (1.001-1.035); Urine Urobilinogen Normal (Negative); Urine pH 5.5 (5.0-9.0)
[2024-02-01 10:30] LABS: Urine Color Light-Yellow (Yellow)
[2024-02-01 10:42] LABS: Free T3 2.11 pg/mL (2.3-4.2)
[2024-02-01 10:43] LABS: Free T4 (Free Thyroxine) 1.13 ng/dL (0.89-1.76)
[2024-02-01 10:43] LABS: Amphetamine Screen, Urine Neg (NEGATIVE); Barbiturate Scree,Urine Neg (NEGATIVE); Cocaine Screen, Urine Neg (NEGATIVE)
[2024-02-01 10:44] LABS: Benzodiazephine Screen, Urine Neg (NEGATIVE); Cannabinoid Screen, Urine Neg (NEGATIVE); Opiate Scree,Urine Neg (NEGATIVE); Phencyclidine Screen, Urine Neg (NEGATIVE)
[2024-02-01] MEDS: SACUBITRIL-VALSARTAN 24mg/26mg TAB PO SCH (10:44)
[2024-02-01] MEDS: EMPAGLIFLOZIN 10 MG TAB PO SCH (10:44)
[2024-02-01] MEDS: VENLAFAXINE HCL 37.5MG TABLET PO ONE (12:29)
[2024-02-01] MEDS: clonazePAM 0.5 MG TAB PO ONE (12:29)
[2024-02-01] MEDS: AZITHROMYCIN 500MG/ 250ML 250 ML IV ONE (16:30)
[2024-02-01] MEDS: ALBUTEROL SULF 2.5 MG/0.5ML(0.5%) NEB SOLN NEB PRN (18:54)
[2024-02-01] MEDS: IPRATROPIUM BROM 0.5 MG/2.5ML INH SOL NEB SCH (18:54)
[2024-02-01] MEDS: methylPREDNISolone SOD SUCC 40 MG/ML VL IV SCH (21:54)
[2024-02-01] MEDS: clonazePAM 0.5 MG TAB PO SCH (21:54)
[2024-02-02] VITALS (10 sets, daily range): BP systolic 99–130; BP diastolic 65–76; PULSE 70–87; RESP 17–20; TEMP 36.5; O2SAT 92–100
[2024-02-02 07:08] LABS: Basophils # (auto) 0 10 ^3/uL (0-0.2); Eosinophils # (auto) 0 10 ^3/uL (0-0.8); Eosinophils % (auto) 0.2 % (0.0-7.0); Hemoglobin 18.9 g/dL (13.5-17.5); Lymphocytes # (auto) 0.7 10 ^3/uL (0.4-5.4); Monocytes # (auto) 0.1 10 ^3/uL (0-1.3); Monocytes % (auto) 1.7 % (0.0-12.0); Red Cell Distribution Width 15.2 % (11.8-14.3)
[2024-02-02 07:24] LABS: Basophils % (auto) 0.7 % (0.0-2.0); Lymphocytes % (auto) 9.7 % (10.0-50.0); Mean Corpuscular Hemoglobin 30.8 pg (28.0-32.0); Mean Corpuscular Hgb Conc. 33.2 g/dL (32.0-36.0); Mean Corpuscular Volume 92.9 fL (80.0-100.0); Neutrophils # (auto) 6.3 10 ^3/uL (1.6-8.6); Neutrophils % (auto) 87.7 % (37.0-80.0); Platelet Count (auto) 263 10^3/uL (140-450); Red Blood Cells 6.15 10^6/uL (4.5-5.90); White Blood Cell 7.2 10^3/uL (4.4-10.8)
[2024-02-02 07:25] LABS: Hematocrit 57.1 % (41.0-53.0)
[2024-02-02 07:28] LABS: Anion Gap 9 (5-15); Carbon Dioxide 27 mmol/L (20-30); Chloride 102 mmol/L (98-107); Potassium 4.5 mmol/L (3.5-5.1); Sodium 138 mmol/L (136-145)
[2024-02-02 07:30] LABS: Calcium 9.9 mg/dL (8.7-10.4)
[2024-02-02 07:34] LABS: BUN/Creatinine Ratio 15.4 (10.0-20.0); Blood Urea Nitrogen 25 mg/dL (9-23); Glucose 134 mg/dL (74-106)
[2024-02-02] MEDS: AZITHROMYCIN 500MG/ 250ML 250 ML IV SCH (08:29)
[2024-02-02] MEDS: VENLAFAXINE HCL 37.5MG TABLET PO SCH (08:38)
[2024-02-02] MEDS ORDERED: CARVEDILOL 3.125 MG TAB PO SCH (10:30)
[2024-02-02] MEDS ORDERED: PANTOPRAZOLE 40 MG TAB PO ONE (10:30)
[2024-02-02] MEDS ORDERED: AZIT-185 PO ×2 (14:30)
[2024-02-02] MEDS ORDERED: LEVO137T3 PO ×2 (14:30)
[2024-02-02] MEDS ORDERED: AZIT-43 PO ×2 (14:31)
[2024-02-03] MEDS ORDERED: PANTOPRAZOLE 40 MG TAB PO SCH (06:00)
== END 2024-02-02 14:45 | disposition home or self-care (01) | DRG 140 ==
LOC: ER 15:38 → EDBD 15:38 → TELE 20:49 → TELE-E-ADS 02-01 03:52
PROVIDERS: ADMIT Internal Medicine; ATTEND Internal Medicine
DX: J44.1 Chronic obstructive pulmonary disease with (acute) exacerbation (principal); N17.0 Acute kidney failure with tubular necrosis; I50.43 Acute on chronic combined systolic (congestive) and diastolic (congestive) heart failure; I42.8 Other cardiomyopathies; I13.0 Hypertensive heart and chronic kidney disease with heart failure and stage 1 through stage 4 chronic kidney disease, or unspecified chronic kidney disease; F17.210 Nicotine dependence, cigarettes, uncomplicated; I25.10 Atherosclerotic heart disease of native coronary artery without angina pectoris; N18.9 Chronic kidney disease, unspecified; E03.9 Hypothyroidism, unspecified; K21.9 Gastro-esophageal reflux disease without esophagitis; Z83.3 Family history of diabetes mellitus; Z82.49 Family history of ischemic heart disease and other diseases of the circulatory system; Z80.3 Family history of malignant neoplasm of breast; Z95.810 Presence of automatic (implantable) cardiac defibrillator
CPT/HCPCS: 36415; 71045; 71250; 74176; 80048; 80053; 80307; 81001; 83036; 83690; 83880; 84439; 84443; 84481; 84484; 85025; 85379; 94640; 96374; G0378; J3490

== ENCOUNTER 2024-05-09 08:28 | Inpatient (IN) | payer MEDICAID ==
[~2024-05-09] VITALS: Ht 172.7 cm; Wt 84.7 kg
[~2024-05-09 08:28] MED LIST changes: +AZIT-185 PO; +AZIT-43 PO; -LEVO125T7 PO; +LEVO137T3 PO; +VENL150T34 PO; -VENL75CA78 PO
--- NOTE | 2024-05-09 09:18 | ED.PDOC ---
History of Present Illness HPI Comments 63 y/o M, with a Hx of anxiety, AICD CAD, CHF, CKF, COPD, GERD, DM, HLD, HTN, AZ, pacemaker and tobacco use, is BIBA for c/o chest pain and shortness of breath, today. Patient endorses on onset of progressively worsening symptoms for the past week. He comments on pain being non-radiating and localized to the left-side of his chest. Patient reports no recent injuries, stressors, strenuous activities, or other additional relevant or pertinent Hx. Patient denies having any palpitations, dizziness, nausea, vomiting, fever, chills, or other associated symptoms or modifiers at this time. Per EMS report, patient was given ASA and IV access en route. Chief Complaint: Chest Pain Time Seen by MD: 09:00 Primary Care Provider: haily Reviewed Notes: Nurses Notes, Pay Agent Notes, Medications, Allergies Allergies: Coded Allergies: Morphine (Unverified Allergy, Unknown, 04/18/22) SEVERE BRADYCARDIA Home Meds Active Scripts Azithromycin (Azithromycin) 250 Mg Tab, 250 MG PO DAILY MDD 500 for 5 Days, #5 TAB 0 Refills 2 TABLETS ORALLY ON DAY ONE, THEN 1 TABLET ORALLY DAILY FOR 4 DAYS Prov:LETY LOPES RESIDENT 02/02/24 Azithromycin (ZITHROMAX TABLET) 250 Mg Tb, 250 MG PO ONCE for 5 Days, TAB Prov:LETY LOPES RESIDENT 02/02/24 Levothyroxine Sodium (Levothyroxine Sodium) 137 Mcg Tab, 1 TAB PO DAILY, #90 TAB 3 Refills Prov:LETY LOPES RESIDENT 02/02/24 Furosemide (Lasix) 20 Mg Tb, 1 TAB PO DAILY, #90 TAB 1 Refill Prov:EUN LI MD 09/16/23 Sacubitril-Valsartan (Entresto 24-26 mg) 1 Tab Tab, 1 TAB PO BID, #180 TAB Prov:EUN LI MD 09/16/23 Reported Medications Venlafaxine Hcl (Venlafaxine Hcl Er) 150 Mg Tab, 1 TAB PO DAILY 02/01/24 Dapagliflozin Propanediol (Farxiga) 10 Mg Tab, 10 MG PO DAILY, TAB 09/14/23 Tamsulosin Hcl (Tamsulosin Hcl) 0.4 Mg Cap, 0.8 MG PO DAILY AFTER MEAL, MG 09/14/23 Carvedilol (Carvedilol) 6.25 Mg Tab, 1 TAB PO BIDWM, TAB 09/14/23 Losartan Potassium (Losartan Potassium) 25 Mg Tab, 1 TAB PO DAILY, #90 TAB 1 Refill 04/18/22 Venlafaxine Hcl (Venlafaxine Hcl Er) 150 Mg Cap, 1 CAP PO QAM for DEPRESSION, #30 CAP 1 Refill 12/24/17 Clonazepam (KlonoPIN TABLET) 0.5 Mg Tb, 1 TAB PO BID PRN for ANXIETY, #30 TAB 04/17/17 Information Source: Patient, Emergency Med Personnel Mode of Arrival: EMS Severity: Moderate Timing: Weeks Duration: Since onset Prehospital treatment: 12 Lead EKG, ASA, [employer] Machine Feeder, Other (IV acess ) Past Medical History PAST MEDICAL HISTORY: Anxiety, CAD, CHF, CKF, COPD, Depression, DM, GERD, High Lipids, HTN, AZ, Thyroid Surgical History: Pacemaker Surgical History (Other): AICD Family History Family History: Family hx of DM, Family hx of Cancer, Family hx of heart herve, Family hx of HTN Social History Smoker: Cigarettes, Less Than 1 Pack/Day Alcohol: Denies ETOH Use Drugs: Denies Drug Use Lives In: Home Respiratory: reports: shortness of breath Cardiovascular: reports: chest pain All Other Systems: Reviewed and Negative (negative unless otherwise stated above or in HPI) Physical Exam General Appearance: Moderate Distress HEENT: Normal ENT Inspection, Pharynx Normal, TMs Normal Neck: Full Range of Motion, Non-Tender, Normal, Normal Inspection Respiratory: Chest Non-Tender, Lungs Clear, No Accessory Muscle Use, No Respiratory Distress, Normal Breath Sounds Cardiovascular: No Edema, No JVD, No Murmur, No Gallop, Normal Peripheral Pulses, Regular Rate/Rhythm Breast Exam: Deferred Gastrointestinal: No Organomegaly, Non Tender, No Pulsatile Mass, Normal Bowel Sounds, Soft Genitalia: Deferred Pelvic: Deferred Rectal: Deferred Extremities: No calf tenderness, Normal capillary refill, Normal inspection, Normal range of motion, Non-tender, No pedal edema Musculoskeletal : Apperance: Normal Neurologic: Alert, leather heel breaster II-XII nml as Tested, No Motor Deficits, Normal Affect, Normal Mood, No Sensory Deficits Cerebellar Function: NOT DONE Reflexes: NOT DONE Skin: Dry, Normal Color, Warm Peripheral Pulses: 3+ Radial (R), 3+ Radial (L) Lymphatic: No Adenopathy Was a procedure done? Was a procedure done?: No EKG EKG : Pulse Rate (adult): 70 [place]: Normal Cardiac Rhythm: NSR Block: None Hypertrophy: None ST: Normal Differential Dx Considerations may include: AZ, ACS, PE, COPD exacerbation, PNA, angina, anxiety, costochondritis, pericarditis, gastritis, viral syndrome X-Ray, Labs, Meds, VS Vital Signs Date Time Temp Pulse Resp B/P (MAP) Pulse Ox O2 Delivery O2 Flow Rate FiO2 05/09/24 10:14 Nasal Cannula* 2 28 05/09/24 10:13 98.0 68 17 111/78 (89) 97 98.0 05/09/24 10:10 111/78 05/09/24 09:18 70 05/09/24 08:39 98.2 77 20 137/89 (105) 98 05/09/24 08:29 70 Lab Test 05/09/24 11:25 05/09/24 10:02 05/09/24 09:48 05/09/24 08:39 Range/Units Troponin I High Sensitivity 16 15 17 </=54 ng/L Urine Color Light-yellow Yellow Urine Clarity Clear Clear Urine pH 7.0 5.0-9.0 Urine Specific [place] 1.015 1.001-1.035 Urine Protein Negative Negative Urine Ketones Negative Negative Urine Blood Negative Negative /uL Urine Nitrite Negative Negative Urine Bilirubin Negative Negative Urine Urobilinogen Normal Negative mg/dL Urine Leukocyte Esterase Negative Negative /uL Urine RBC <1 0 - 3 /hpf Urine WBC 1 0 - 3 /hpf Urine Squamous Epithelial Cells None seen <5 /hpf Urine Bacteria None seen None Seen /hpf Urine Glucose Normal Normal mg/dL White Blood Count 5.9 4.4-10.8 10^3/uL Red Blood Count 4.83 4.5-5.90 10^6/uL Hemoglobin 15.1 13.5-17.5 g/dL Hematocrit 45.1 41.0-53.0 % Mean Corpuscular Volume 93.3 80.0-100.0 fL Mean Corpuscular Hemoglobin 31.2 28.0-32.0 pg Mean Corpuscular Hemoglobin Concent 33.4 32.0-36.0 g/dL Red Cell Distribution Width 15.1 H 11.8-14.3 % Platelet Count 193 140-450 10^3/uL Mean Platelet Volume 8.9 6.9-10.8 fL Neutrophils (%) (Auto) 56.2 37.0-80.0 % Lymphocytes (%) (Auto) 22.0 10.0-50.0 % Monocytes (%) (Auto) 10.2 0.0-12.0 % Eosinophils (%) (Auto) 9.9 H 0.0-7.0 % Basophils (%) (Auto) 1.7 0.0-2.0 % Neutrophils # (Auto) 3.3 1.6-8.6 10 ^3/uL Lymphocytes # (Auto) 1.3 0.4-5.4 10 ^3/uL Monocytes # (Auto) 0.6 0-1.3 10 ^3/uL Eosinophils # (Auto) 0.6 0-0.8 10 ^3/uL Basophils # (Auto) 0.1 0-0.2 10 ^3/uL Nucleated Red Blood Cells 0.2 % Sodium Level 138 136-145 mmol/L Potassium Level 4.3 3.5-5.1 mmol/L Chloride Level 105 98-107 mmol/L Carbon Dioxide Level 28 20-31 mmol/L Anion Gap 5 5-15 Blood Urea Nitrogen 19 9-23 mg/dL Creatinine 1.44 H 0.700-1.30 mg/dL Glomerular Filtration Rate Calc 54 >90 mL/min BUN/Creatinine Ratio 13.2 10.0-20.0 Serum Glucose 123 H 74-106 mg/dL Calcium Level 10.0 8.7-10.4 mg/dL Magnesium Level 1.9 1.6-2.6 mg/dL Total Bilirubin 0.4 0.2-1.0 mg/dL Aspartate Amino Transferase (AST) 20 13-40 U/L Alanine Aminotransferase (ALT) 28 7-40 U/L Alkaline Phosphatase 72 46-116 U/L B-Type Natriuretic Peptide 831.45 0-100 pg/mL Total Protein 6.1 5.7-8.2 g/dL Albumin 3.8 3.2-4.8 g/dL Current Medications Medications (Trade) Dose Ordered Sig/Manuel Route Start Time Stop Time Status Last Admin Furosemide (Lasix Injection) 40 mg ONCE ONCE IV 05/09/24 10:00 05/09/24 10:01 DC 05/09/24 10:[address] [address] Ph: [phone] DIAGNOSTIC IMAGING Diagnostic Imaging Report : [id number] Signed PATIENT: XIAO HERNANDEZ ACCT: [id number] UNIT: [id number] : 1960 LOC: ER ROOM / BED: / AGE / SEX: 63 / M ADM STATUS: REG ER SERVICE 6 ORDERING PHYSICIAN: DAVI SMITH MD PROCEDURE(s): CXRP - CHEST PORTABLE REASON: CP ORDER NUMBER(s): [id number], ACCESSION NUMBER(s): [id number] XY CHEST PORTABLE, HISTORY: CP COMPARISON: XY CHEST XRAY 1 VIEW on DOS: 01/31/24, XY CHEST PORTABLE on DOS: 09/13/23, XY CHEST PORTABLE on DOS: 08/02/23 XY CHEST XRAY 1 VIEW on DOS: 01/31/24, XY CHEST PORTABLE on DOS: 09/13/23, XY CHEST PORTABLE on DOS: 08/02/23 TECHNICAL DATA: 1 view of the chest was obtained. FINDINGS: Lines and tubes: A cardiac pacer is seen. Cardiomediastinal silhouette: normal Pulmonary vasculature: normal Lung expansion: normal Lung airspace: normal Lung interstitium: normal Pleura: normal Pneumothorax: no Bones: Unremarkable Other: no IMPRESSION: No acute intrathoracic abnormality. ATED BY: DARRION SMYTH MD DICTATED DATE/TIME: 05/09/24942 SIGNED BY: DARRION SMYTH MD SIGNED DATE/TIME: 05/09/24942 CC: Patient alert. Complaining of chest pain. History of cardiac disease. Vitals stable. BNP elevated. EKG reviewed does not show any acute changes. Establish intravenous access. Was given Lasix. Chest x-ray reviewed does not show any acute process. WBC within normal limits. Hemoglobin within normal limits. Reviewed his previous visit. Explained to the patient. Continue cardiac monitoring. Time of 1ST Reevaluation: 09:30 Reevaluation 1ST: Unchanged Patient Education/Counseling: Diagnosis, Treatment Family Education/Counseling: No Family Present Departure 1 Departure Time of Disposition: 09:52 Impression: Primary Impression: CHF (congestive heart failure) Qualified Codes: I50.43 - Acute on chronic combined systolic (congestive) and diastolic (congestive) heart failure Additional Impression: Chest pain of unknown etiology Disposition: ADMITTED INPATIENT Admit to: Med Surg Condition: Guarded Critical Care Note Critical Care Time?: Yes (35 min-critical care time only) Stability Stability form required: No Heart Score Heart Score: Heart Score Response (Comments) Value History Highly Suspicious 2 EKG Normal 0 Age 45-64 1 Risk Factors >3 or Hx ASHD 2 Troponin Normal limit 0 Total 5 I personally scribed for DAVI SMITH MD ([email or web address]) on 05/09/24 at 09:18. Electronically submitted by Solomon Garcia ([email or web address]). I personally scribed for DAVI SMITH MD ([email or web address]) on 05/09/24 at 09:50. Electronically submitted by Solomon Garcia [email or web address]). DAVI SMITH MD May 09, 2024 09:18
[2024-05-09 09:22] LABS: Basophils # (auto) 0.1 10 ^3/uL (0-0.2); Basophils % (auto) 1.7 % (0.0-2.0); Eosinophils # (auto) 0.6 10 ^3/uL (0-0.8); Eosinophils % (auto) 9.9 % (0.0-7.0); Hematocrit 45.1 % (41.0-53.0); Hemoglobin 15.1 g/dL (13.5-17.5); Lymphocytes # (auto) 1.3 10 ^3/uL (0.4-5.4); Mean Corpuscular Hemoglobin 31.2 pg (28.0-32.0); Mean Corpuscular Hgb Conc. 33.4 g/dL (32.0-36.0); Mean Corpuscular Volume 93.3 fL (80.0-100.0); Monocytes # (auto) 0.6 10 ^3/uL (0-1.3); Monocytes % (auto) 10.2 % (0.0-12.0); Neutrophils # (auto) 3.3 10 ^3/uL (1.6-8.6); Neutrophils % (auto) 56.2 % (37.0-80.0); Nucleated Red Blood Cells % 0.2 %; Platelet Count (auto) 193 10^3/uL (140-450); Red Blood Cells 4.83 10^6/uL (4.5-5.90); Red Cell Distribution Width 15.1 % (11.8-14.3); White Blood Cell 5.9 10^3/uL (4.4-10.8)
[2024-05-09 09:40] LABS: Alanine Aminotransferase 28 U/L (7-40); Albumin 3.8 g/dL (3.2-4.8); Alkaline Phosphatase 72 U/L (46-116); Anion Gap 5 (5-15); Aspartate Aminotransferase 20 U/L (13-40); BUN/Creatinine Ratio 13.2 (10.0-20.0); Blood Urea Nitrogen 19 mg/dL (9-23); Carbon Dioxide 28 mmol/L (20-31); Chloride 105 mmol/L (98-107); Magnesium 1.9 mg/dL (1.6-2.6); Potassium 4.3 mmol/L (3.5-5.1); Sodium 138 mmol/L (136-145)
[2024-05-09 09:41] LABS: Bilirubin, Total 0.4 mg/dL (0.2-1.0); Total Protein 6.1 g/dL (5.7-8.2)
[2024-05-09 09:42] LABS: Glucose 123 mg/dL (74-106)
--- NOTE | 2024-05-09 09:45 | DVH ---
XY CHEST PORTABLE, HISTORY: CP COMPARISON: XY CHEST XRAY 1 VIEW on DOS: 01/31/24, XY CHEST PORTABLE on DOS: 09/13/23, XY CHEST PORTABLE on DOS: 08/02/23 XY CHEST XRAY 1 VIEW on DOS: 01/31/24, XY CHEST PORTABLE on DOS: 09/13/23, XY CHEST PORTABLE on DOS: 07/10 09/01 TECHNICAL DATA: 1 view of the chest was obtained. FINDINGS: Lines and tubes: A cardiac pacer is seen. Cardiomediastinal silhouette: normal Pulmonary vasculature: normal Lung expansion: normal Lung airspace: normal Lung interstitium: normal Pleura: normal Pneumothorax: no Bones: Unremarkable Other: no IMPRESSION: No acute intrathoracic abnormality.
[2024-05-09] MEDS: FUROSEMIDE 40 MG/4 ML VIAL IV ONE (10:10)
[2024-05-09 10:28] LABS: Urine Bacteria None Seen /hpf (None Seen)
[2024-05-09 10:39] LABS: Urine Blood Negative /uL (Negative); Urine Clarity Clear (Clear); Urine Color Light-Yellow (Yellow); Urine Protein, UAD Negative (Negative); Urine Specific Gravity 1.015 (1.001-1.035); Urine Squamous Epithelial Cell None Seen /hpf (<5); Urine Urobilinogen Normal (Negative); Urine WBC 1 /hpf (0 - 3)
--- NOTE | 2024-05-09 15:08 | DVHHP2 ---
Admitting Diagnosis: Chest pain History of Present Illness 63 yo male patient with hx of anxiety, AICD CAD, CHF, CKF, COPD, GERD, DM, HLD, HTN, OR, pacemaker and tobacco use c/o non-radiating left sided chest pain and shortness of breath that has been progressively worsening the past week. Patient denies any other symptoms. While in the emergency department the patient was evaluated by the provider, As per provider: Labs, vital signs, and imagining monitored. Patient will be admitted for further evaluation and treatment. I discussed admission with the patient/family and is in agreement to treatment plan. Patient Family History: Alcoholism G8 FATHER, , Cause: OR (myocardial infarction), Onset:40s - 50 FH: arrhythmia G8 MOTHER FH: breast cancer G8 SISTER, , Cause: OR (myocardial infarction) FH: diabetes mellitus FH: heart attack G8 FATHER, , Cause: OR (myocardial infarction) G8 BROTHER, , Cause: OR (myocardial infarction) Family history: Cardiovascular disease G8 FATHER, , Cause: OR (myocardial infarction), Onset:40 - Family history: Diabetes mellitus G8 MOTHER, Onset:40s - 50 G8 FATHER, , Cause: OR (myocardial infarction) G8 SISTER, , Cause: OR (myocardial infarction) Allergies: Coded Allergies: Morphine (Unverified Allergy, Unknown, 04/18/22) SEVERE BRADYCARDIA Home Meds Active Scripts Azithromycin (Azithromycin) 250 Mg Tab, 250 MG PO DAILY MDD 500 for 5 Days, #5 TAB 0 Refills 2 TABLETS ORALLY ON DAY ONE, THEN 1 TABLET ORALLY DAILY FOR 4 DAYS Prov:LETY LOPES RESIDENT 02/02/24 Azithromycin (ZITHROMAX TABLET) 250 Mg Tb, 250 MG PO ONCE for 5 Days, TAB Prov:LETY LOPES RESIDENT 02/02/24 Levothyroxine Sodium (Levothyroxine Sodium) 137 Mcg Tab, 1 TAB PO DAILY, #90 TAB 3 Refills Prov:LETY LOPES RESIDENT 02/02/24 Furosemide (Lasix) 20 Mg Tb, 1 TAB PO DAILY, #90 TAB 1 Refill Prov:EUN LI MD 09/16/23 Sacubitril-Valsartan (Entresto 24-26 mg) 1 Tab Tab, 1 TAB PO BID, #180 TAB Prov:EUN LI MD 09/16/23 Reported Medications Venlafaxine Hcl (Venlafaxine Hcl Er) 150 Mg Tab, 1 TAB PO DAILY 02/01/24 Dapagliflozin Propanediol (Farxiga) 10 Mg Tab, 10 MG PO DAILY, TAB 09/14/23 Tamsulosin Hcl (Tamsulosin Hcl) 0.4 Mg Cap, 0.8 MG PO DAILY AFTER MEAL, MG 09/14/23 Carvedilol (Carvedilol) 6.25 Mg Tab, 1 TAB PO BIDWM, TAB 09/14/23 Losartan Potassium (Losartan Potassium) 25 Mg Tab, 1 TAB PO DAILY, #90 TAB 1 Refill 04/18/22 Venlafaxine Hcl (Venlafaxine Hcl Er) 150 Mg Cap, 1 CAP PO QAM for DEPRESSION, #30 CAP 1 Refill 12/24/17 Clonazepam (KlonoPIN TABLET) 0.5 Mg Tb, 1 TAB PO BID PRN for ANXIETY, #30 TAB 04/17/17 Current Medications Current Medications Medications (Trade) Dose Ordered Sig/Manuel Route PRN Reason Start Time Stop Time Status Last Admin Enoxaparin Sodium (Lovenox) 40 mg DAILY SC 05/10/24 10:00 Furosemide (Lasix Injection) 40 mg DAILY IV 05/10/24 10:00 05/10/24 09:42 Hydromorphone HCl (Dilaudid Injection) 1 mg Q4HP PRN IV PAIN SCALE 7 THRU 10 05/10/24 08:30 Hold Acetaminophen/ Hydrocodone Bitart ([place] 10/325MG Tab) 1 tab Q6HP PRN PO MODERATE PAIN (4-6 PAIN SCALE) 05/10/24 08:30 05/10/24 18:32 Clonazepam (KlonoPIN TABLET) 0.5 mg BID PRN PO ANXIETY 05/10/24 17:00 05/10/24 22:44 Sacubitril/ Valsartan (Entresto 24-26 Mg tab) 1 tab BID PO 05/10/24 22:00 Tamsulosin HCl (Flomax) 0.8 mg DAILY PO 05/11/24 10:00 Carvedilol (Coreg Tablet) 6.25 mg BIDWM PO 05/10/24 18:00 Patient Own Medication 10 mg DAILY PO 05/11/24 10:00 UNV Patient Own Medication 1 tab DAILY PO 05/11/24 10:00 UNV Venlafaxine HCl (Effexor Xr) 150 mg QAM PO 05/11/24 07:00 Losartan Potassium (Cozaar Tablet) 25 mg DAILY PO 05/11/24 10:00 Future Hold Pantoprazole Sodium (Protonix Tablet) 40 mg DAILY@0600 PO 05/11/24 06:00 Review of Systems Constitutional: denies chills, denies fever, denies malaise Eyes: denies eye pain, denies vision change ENT: denies ear pain, denies headache, denies nasal congestion, denies painful swallowing, denies voice change Cardiovascular: denies chest pain, denies edema, denies orthopnea, denies palpitations, denies paroxysmal nocturnal dyspnea Respiratory: denies cough, denies shortness of breath Gastrointestinal: denies constipation, denies diarrhea, denies nausea, denies vomiting Genitourinary: denies dysuria, denies frequent urination, denies urethral discharge Musculoskeletal: denies back pain, denies joint pain, denies muscle pain Skin: denies bruising, denies itching, denies rash Neurological: denies focal weakness, denies headache, denies sensory changes Psychiatric: denies anxiety, denies depression Endocrine: denies polydipsia, denies polyuria Hematologic/Lymphatic: denies easy bleeding, denies easy bruising, denies enlarged lymph nodes Allergic/Immunologic: denies allergy, denies hives Vital Signs Vital Signs Date Time Temp Pulse Resp B/P (MAP) Pulse Ox O2 Delivery O2 Flow Rate FiO2 05/10/24 22:05 98.0 79 20 129/83 (98) 97 98.0 05/10/24 22:02 Room Air* 0 21 Physical Exam General Appearance: alert, no distress HEENT: EOMI, PERRLA, normal external inspect of ears, no icterus, no nasal drainage Neck: no carotid bruit, no jugular venous distention (JVD), no lymphadenopathy Chest: normal thorax Respiratory: clear to auscultation, normal air movement Cardiovascular: regular rate and rhythm, no diastolic murmur, no jugular venous distention (JVD), no rub, no systolic murmur Abdominal: soft, no hepatomegaly, no mass, no splenomegaly, no tenderness Genitourinary: grossly normal external Musculoskeletal: no joint tenderness, no swelling Extremities: normal pulses, no calf tenderness, no clubbing, no cyanosis, no edema Skin: no bruising, no jaundice, no rash Neurological: alert, No focal deficit Results Labs Test 05/10/24 04:26 05/09/24 11:25 05/09/24 10:02 05/09/24 08:39 Range/Units White Blood Count 7.3 4.4-10.8 10^3/uL Red Blood Count 5.06 4.5-5.90 10^6/uL Hemoglobin 15.6 13.5-17.5 g/dL Hematocrit 46.9 41.0-53.0 % Mean Corpuscular Volume 92.7 80.0-100.0 fL Mean Corpuscular Hemoglobin 30.8 28.0-32.0 pg Mean Corpuscular Hemoglobin Concent 33.2 32.0-36.0 g/dL Red Cell Distribution Width 14.6 H 11.8-14.3 % Platelet Count 195 140-450 10^3/uL Mean Platelet Volume 8.5 6.9-10.8 fL Neutrophils (%) (Auto) 60.3 37.0-80.0 % Lymphocytes (%) (Auto) 19.8 10.0-50.0 % Monocytes (%) (Auto) 10.1 0.0-12.0 % Eosinophils (%) (Auto) 8.6 H 0.0-7.0 % Basophils (%) (Auto) 1.2 0.0-2.0 % Neutrophils # (Auto) 4.4 1.6-8.6 10 ^3/uL Lymphocytes # (Auto) 1.4 0.4-5.4 10 ^3/uL Monocytes # (Auto) 0.7 0-1.3 10 ^3/uL Eosinophils # (Auto) 0.6 0-0.8 10 ^3/uL Basophils # (Auto) 0.1 0-0.2 10 ^3/uL Nucleated Red Blood Cells 0.1 % Sodium Level 139 136-145 mmol/L Potassium Level 4.8 3.5-5.1 mmol/L Chloride Level 104 98-107 mmol/L Carbon Dioxide Level 29 20-31 mmol/L Anion Gap 6 5-15 Blood Urea Nitrogen 25 H 9-23 mg/dL Creatinine 1.45 H 0.700-1.30 mg/dL Glomerular Filtration Rate Calc 54 >90 mL/min BUN/Creatinine Ratio 17.2 10.0-20.0 Serum Glucose 92 74-106 mg/dL Calcium Level 9.8 8.7-10.4 mg/dL Total Bilirubin 0.6 0.2-1.0 mg/dL Aspartate Amino Transferase (AST) 18 13-40 U/L Alanine Aminotransferase (ALT) 25 7-40 U/L Alkaline Phosphatase 70 46-116 U/L Total Protein 6.4 5.7-8.2 g/dL Albumin 3.9 3.2-4.8 g/dL Troponin I High Sensitivity 16 </=54 ng/L Urine Color Light-yellow Yellow Urine Clarity Clear Clear Urine pH 7.0 5.0-9.0 Urine Specific [place] 1.015 1.001-1.035 Urine Protein Negative Negative Urine Ketones Negative Negative Urine Blood Negative Negative /uL Urine Nitrite Negative Negative Urine Bilirubin Negative Negative Urine Urobilinogen Normal Negative mg/dL Urine Leukocyte Esterase Negative Negative /uL Urine RBC <1 0 - 3 /hpf Urine WBC 1 0 - 3 /hpf Urine Squamous Epithelial Cells None seen <5 /hpf Urine Bacteria None seen None Seen /hpf Urine Glucose Normal Normal mg/dL Magnesium Level 1.9 1.6-2.6 mg/dL B-Type Natriuretic Peptide 831.45 0-100 pg/mL Plan 1. Chest pain Monitor EKG, trend troponin, cardiology consult, DVT prophylaxis 2. Acute on chronic systolic CHF exacerbation Monitor, IV diuretics 3. BPH Monitor, continue flomax, PPI 4. Hypothyroid Monitor, continue Synthroid 5. Benign essential HTN Monitor, antihypertensives Plan discussed with: Patient, Other MANJULA LAN NP May 09, 2024 15:08
[2024-05-09] MEDS ORDERED: DOCUSATE SOD 100 MG CAP PO PRN (15:15)
[2024-05-09] MEDS ORDERED: ONDANSETRON HCL 4 MG/2 ML VIAL IV PRN (15:15)
--- NOTE | 2024-05-09 18:19 | ECG ---
[facility] Test Date: 2024-05-09 Test Time: 08:29:09 Pat Name: XIAO HERNANDEZ Department: ER Room: [address] [place] [address] Gender: M Fac Engineer: LIZETH : 1960 Requested By: DAVI SMITH Order Number: [id number] Reading MD: Portia Choudhury Measurements Intervals [place] Rate: 70 P: 40 CA: 162 QRS: -34 QRSD: 130 T: 161 QT: 411 QTc: 444 Interpretive Statements Sinus rhythm Ventricular premature complex NIVCD Borderline repolarization abnormality Electronically Signed On 05-09-2024 22:19:32 PST by Portia Choudhury Please click the below link to view image of tracing.
[2024-05-09 18:55] VITALS: BP 130/89; PULSE 102; RESP 20; TEMP 97.9; O2SAT 98
[2024-05-09] MEDS: NITROGLYCERIN 0.4 MG SL TAB SL PRN (19:52)
[2024-05-10] VITALS (7 sets, daily range): BP systolic 101–129; BP diastolic 55–83; PULSE 78–83; RESP 16–20; TEMP 97.5–98; O2SAT 92–97
[2024-05-10] MEDS: HYDROcodone-ACET 5/325MG TAB PO ONE (03:49)
[2024-05-10 05:12] LABS: Basophils # (auto) 0.1 10 ^3/uL (0-0.2); Basophils % (auto) 1.2 % (0.0-2.0); Eosinophils # (auto) 0.6 10 ^3/uL (0-0.8); Eosinophils % (auto) 8.6 % (0.0-7.0); Hematocrit 46.9 % (41.0-53.0); Hemoglobin 15.6 g/dL (13.5-17.5); Lymphocytes # (auto) 1.4 10 ^3/uL (0.4-5.4); Lymphocytes % (auto) 19.8 % (10.0-50.0); Mean Corpuscular Hemoglobin 30.8 pg (28.0-32.0); Mean Corpuscular Hgb Conc. 33.2 g/dL (32.0-36.0); Mean Corpuscular Volume 92.7 fL (80.0-100.0); Monocytes # (auto) 0.7 10 ^3/uL (0-1.3); Monocytes % (auto) 10.1 % (0.0-12.0); Neutrophils # (auto) 4.4 10 ^3/uL (1.6-8.6); Neutrophils % (auto) 60.3 % (37.0-80.0); Nucleated Red Blood Cells % 0.1 %; Platelet Count (auto) 195 10^3/uL (140-450); Red Blood Cells 5.06 10^6/uL (4.5-5.90); Red Cell Distribution Width 14.6 % (11.8-14.3); White Blood Cell 7.3 10^3/uL (4.4-10.8)
[2024-05-10 05:28] LABS: Alanine Aminotransferase 25 U/L (7-40); Albumin 3.9 g/dL (3.2-4.8); Alkaline Phosphatase 70 U/L (46-116); Anion Gap 6 (5-15); Aspartate Aminotransferase 18 U/L (13-40); BUN/Creatinine Ratio 17.2 (10.0-20.0); Calcium 9.8 mg/dL (8.7-10.4); Carbon Dioxide 29 mmol/L (20-31); Chloride 104 mmol/L (98-107); Glucose 92 mg/dL (74-106); Potassium 4.8 mmol/L (3.5-5.1); Sodium 139 mmol/L (136-145)
[2024-05-10 05:29] LABS: Bilirubin, Total 0.6 mg/dL (0.2-1.0); Total Protein 6.4 g/dL (5.7-8.2)
[2024-05-10 05:41] LABS: Blood Urea Nitrogen 25 mg/dL (9-23)
--- NOTE | 2024-05-10 08:29 | DVHPN2 ---
Progress Note - Dictate Date Seen: May 10, 2024 Medical Necessity Reason Pt with a Central, PICC or Fol: No vital signs Vital Sign Date Time Temp Pulse Resp B/P (MAP) Pulse Ox O2 Delivery O2 Flow Rate FiO2 05/10/24 06:36 98.0 89 16 117/78 (91) 95 98.0 05/09/24 10:14 Nasal Cannula* 2 28 medications Current Medications Medications Dose Ordered Sig/Manuel Route Start Time Stop Time Status Last Admin Dose Admin Temazepam 15 mg QHSP PRN PO 05/09/24 15:15 Ondansetron HCl 4 mg Q4HP PRN IV 05/09/24 15:15 Docusate Sodium 100 mg BIDPRN PRN PO 05/09/24 15:15 Enoxaparin Sodium 40 mg DAILY SC 05/10/24 10:00 Furosemide 40 mg DAILY IV 05/10/24 10:00 Nitroglycerin 0.4 mg Q5MINP PRN SL 05/09/24 15:15 05/09/24 19:52 0.4 MG objective General Appearance: alert, no distress HEENT: EOMI, PERRLA, normal external inspect of ears, no icterus, no nasal drainage Neck: no carotid bruit, no jugular venous distention (JVD), no lymphadenopathy Chest: normal thorax Respiratory: clear to auscultation, normal air movement Cardiovascular: regular rate and rhythm, no diastolic murmur, no jugular venous distention (JVD), no rub, no systolic murmur Abdominal: soft, no hepatomegaly, no mass, no splenomegaly, no tenderness Genitourinary: grossly normal external Musculoskeletal: no joint tenderness, no swelling Extremities: normal pulses, no calf tenderness, no clubbing, no cyanosis, no edema Skin: no bruising, no jaundice, no rash Neurological: alert, No focal deficit laboratory and microbiology Laboratory Tests 05/10/24 04:26 Test 05/10/24 04:26 Range/Units Serum Glucose 92 74-106 mg/dL Problem List 1. Chest pain Monitor EKG, trend troponin, cardiology consult, DVT prophylaxis 2. Acute on chronic systolic CHF exacerbation Monitor, IV diuretics 3. BPH Monitor, continue flomax, PPI 4. Hypothyroid Monitor, continue Synthroid 5. Benign essential HTN Monitor, antihypertensives Assessment/Plan Subjective Patient is awake and alert. Objective Patient was admitted for chest pain. Patient received 1 dose of nitro today. Troponin levels are negative. Patient had a recent echocardiogram done in September of this year and EF is estimated 30%. Last angiogram was 06/22/2021. I did speak with Dr. Montalvo who will see and evaluate patient. Plan Continue current treatment. Continue home medications for CHF and cardiomyopathy. Monitor EKG. Plan discussed with: Patient, Other MANJULA LAN NP May 10, 2024 08:29
[2024-05-10] MEDS ORDERED: HYDROmorphone HCL 2 MG/ML VL/or syr IV PRN (08:30)
--- NOTE | 2024-05-10 08:54 | DVH ---
CT STROKE CTH INDICATION: Eval for stroke. EXAM DATE: 05/10/2024 08:32 AM COMPARISON: None RADIATION DOSE: CTDIvol: 57.89 mGy, DLP: 927.85 mGy*cm PROCEDURE: CT scans of the head were obtained from the vertex to the skull base. Sagittal and coronal reconstructions were provided. All CT scans at this medical facility are performed using dose modulation techniques as appropriate t o a performed exam including the following: Automated exposure control was utilized; adjustment of th e MA and/or KV according to patient size; and use of iterative reconstruction technique. FINDINGS: There is sulcal and ventricular prominence. The brain otherwise shows normal morphology a nd medel-white matter differentiation, without intracranial hemorrhage, extra-axial fluid collection, mass effect or acute large vessel infarct.The basal cisterns are patent. The skull and visible facial bones are intact. The paranasal sinuses, mastoid air cells and middle ear cavities are well-aerated. The soft tissues of the scalp are unremarkable. IMPRESSION: No acute intracranial abnormality.
[2024-05-10] MEDS: ENOXAPARIN SOD 40 MG/0.4 ML SYRINGE SC SCH (09:32)
[2024-05-10] MEDS: methylPREDNISolone SOD SUCC 125 MG/2 ML VL IV ONE (09:32)
[2024-05-10] MEDS: FUROSEMIDE 40 MG/4 ML VIAL IV SCH (09:42)
[2024-05-10] MEDS: HYDROcodone-ACET 10/325MG TAB PO PRN (09:42)
[2024-05-10] MEDS: CARVEDILOL 3.125 MG TAB PO SCH (17:40)
[2024-05-10] MEDS: SACUBITRIL-VALSARTAN 24mg/26mg TAB PO SCH (22:00)
[2024-05-10] MEDS: clonazePAM 0.5 MG TAB PO PRN (22:44)
[2024-05-10] MEDS: TEMAZEPAM 15 MG CAP PO PRN (22:45)
[2024-05-11] VITALS (10 sets, daily range): BP systolic 90–132; BP diastolic 50–81; PULSE 65–91; RESP 17–20; TEMP 97.7–98; O2SAT 91–100
[2024-05-11] MEDS: VENLAFAXINE HCL 37.5mg XR cap PO SCH (05:27)
[2024-05-11] MEDS: PANTOPRAZOLE 40 MG TAB PO SCH (05:27)
[2024-05-11] MEDS ORDERED: PATIENTS OWN MEDICATION (Dapagliflozin Propanediol (Farxiga) 10 MG) PO SCH (10:00)
[2024-05-11] MEDS: TAMSULOSIN HYDROCHLORIDE 0.4 MG CAP PO SCH (10:10)
[2024-05-11] MEDS: LOSARTAN POTASSIUM 25 MG TAB PO SCH (10:11)
--- NOTE | 2024-05-11 11:08 | DVHINCON2 ---
Date of service: May 11, 2024 History of Present Illness 63 y o M with NICM, hx of ICD , htn admitted for sob. bnp is 800. pt takes po lasix at home. Past Medical History reviewed Family History: Alcoholism G8 FATHER, , Cause: [place] (myocardial infarction), Onset: - FH: arrhythmia G8 MOTHER FH: breast cancer G8 SISTER, , Cause: [place] (myocardial infarction) FH: diabetes mellitus FH: heart attack G8 FATHER, , Cause: [place] (myocardial infarction) G8 BROTHER, , Cause: [place] (myocardial infarction) Family history: Cardiovascular disease G8 FATHER, , Cause: [place] (myocardial infarction), Onset: - Family history: Diabetes mellitus G8 MOTHER, Onset: G8 FATHER, , Cause: [place] (myocardial infarction) G8 SISTER, , Cause: [place] (myocardial infarction) Allergies: Coded Allergies: Morphine (Unverified Allergy, Unknown, 04/18/22) SEVERE BRADYCARDIA Home Meds Active Scripts Azithromycin (Azithromycin) 250 Mg Tab, 250 MG PO DAILY MDD 500 for 5 Days, #5 TAB 0 Refills 2 TABLETS ORALLY ON DAY ONE, THEN 1 TABLET ORALLY DAILY FOR 4 DAYS Prov:LETY LOPES RESIDENT 02/02/24 Azithromycin (ZITHROMAX TABLET) 250 Mg Tb, 250 MG PO ONCE for 5 Days, TAB Prov:LETY LOPES RESIDENT 02/02/24 Levothyroxine Sodium (Levothyroxine Sodium) 137 Mcg Tab, 1 TAB PO DAILY, #90 TAB 3 Refills Prov:LETY LOPES RESIDENT 02/02/24 Furosemide (Lasix) 20 Mg Tb, 1 TAB PO DAILY, #90 TAB 1 Refill Prov:EUN LI MD 09/16/23 Sacubitril-Valsartan (Entresto 24-26 mg) 1 Tab Tab, 1 TAB PO BID, #180 TAB Prov:EUN LI MD 09/16/23 Reported Medications Venlafaxine Hcl (Venlafaxine Hcl Er) 150 Mg Tab, 1 TAB PO DAILY 02/01/24 Dapagliflozin Propanediol (Farxiga) 10 Mg Tab, 10 MG PO DAILY, TAB 09/14/23 Tamsulosin Hcl (Tamsulosin Hcl) 0.4 Mg Cap, 0.8 MG PO DAILY AFTER MEAL, MG 09/14/23 Carvedilol (Carvedilol) 6.25 Mg Tab, 1 TAB PO BIDWM, TAB 09/14/23 Losartan Potassium (Losartan Potassium) 25 Mg Tab, 1 TAB PO DAILY, #90 TAB 1 Refill 04/18/22 Venlafaxine Hcl (Venlafaxine Hcl Er) 150 Mg Cap, 1 CAP PO QAM for DEPRESSION, #30 CAP 1 Refill 12/24/17 Clonazepam (KlonoPIN TABLET) 0.5 Mg Tb, 1 TAB PO BID PRN for ANXIETY, #30 TAB 04/17/17 Current Medications Current Medications Medications (Trade) Dose Ordered Sig/Manuel Route PRN Reason Start Time Stop Time Status Last Admin Clonazepam (KlonoPIN TABLET) 0.5 mg BID PRN PO ANXIETY 05/10/24 17:00 05/10/24 22:44 Sacubitril/ Valsartan (Entresto 24-26 Mg tab) 1 tab BID PO 05/10/24 22:00 05/11/24 10:11 Tamsulosin HCl (Flomax) 0.8 mg DAILY PO 05/11/24 10:00 05/11/24 10:10 Carvedilol (Coreg Tablet) 6.25 mg BIDWM PO 05/10/24 18:00 05/11/24 08:24 Patient Own Medication 10 mg DAILY PO 05/11/24 10:00 UNV Patient Own Medication 1 tab DAILY PO 05/11/24 10:00 UNV Venlafaxine HCl (Effexor Xr) 150 mg QAM PO 05/11/24 07:00 05/11/24 05:27 Losartan Potassium (Cozaar Tablet) 25 mg DAILY PO 05/11/24 10:00 Hold Pantoprazole Sodium (Protonix Tablet) 40 mg DAILY@0600 PO 05/11/24 06:00 05/11/24 05:27 Review of Systems 10 pt ros otherwise negative Vital Signs Vital Signs Date Time Temp Pulse Resp B/P (MAP) Pulse Ox O2 Delivery O2 Flow Rate FiO2 05/11/24 10:10 117/73 05/11/24 09:24 80 05/11/24 08:32 98.0 20 94 98.0 05/10/24 22:02 Room Air* 0 21 Physical Exam nad s1 s2 rrr diffuser [place], mild wheezing, abd distention mild, non tender no edema Labs/Diagnostic Data Labs Test 05/10/24 04:26 05/09/24 11:25 05/09/24 10:02 05/09/24 08:39 Range/Units White Blood Count 7.3 4.4-10.8 10^3/uL Red Blood Count 5.06 4.5-5.90 10^6/uL Hemoglobin 15.6 13.5-17.5 g/dL Hematocrit 46.9 41.0-53.0 % Mean Corpuscular Volume 92.7 80.0-100.0 fL Mean Corpuscular Hemoglobin 30.8 28.0-32.0 pg Mean Corpuscular Hemoglobin Concent 33.2 32.0-36.0 g/dL Red Cell Distribution Width 14.6 H 11.8-14.3 % Platelet Count 195 140-450 10^3/uL Mean Platelet Volume 8.5 6.9-10.8 fL Neutrophils (%) (Auto) 60.3 37.0-80.0 % Lymphocytes (%) (Auto) 19.8 10.0-50.0 % Monocytes (%) (Auto) 10.1 0.0-12.0 % Eosinophils (%) (Auto) 8.6 H 0.0-7.0 % Basophils (%) (Auto) 1.2 0.0-2.0 % Neutrophils # (Auto) 4.4 1.6-8.6 10 ^3/uL Lymphocytes # (Auto) 1.4 0.4-5.4 10 ^3/uL Monocytes # (Auto) 0.7 0-1.3 10 ^3/uL Eosinophils # (Auto) 0.6 0-0.8 10 ^3/uL Basophils # (Auto) 0.1 0-0.2 10 ^3/uL Nucleated Red Blood Cells 0.1 % Sodium Level 139 136-145 mmol/L Potassium Level 4.8 3.5-5.1 mmol/L Chloride Level 104 98-107 mmol/L Carbon Dioxide Level 29 20-31 mmol/L Anion Gap 6 5-15 Blood Urea Nitrogen 25 H 9-23 mg/dL Creatinine 1.45 H 0.700-1.30 mg/dL Glomerular Filtration Rate Calc 54 >90 mL/min BUN/Creatinine Ratio 17.2 10.0-20.0 Serum Glucose 92 74-106 mg/dL Calcium Level 9.8 8.7-10.4 mg/dL Total Bilirubin 0.6 0.2-1.0 mg/dL Aspartate Amino Transferase (AST) 18 13-40 U/L Alanine Aminotransferase (ALT) 25 7-40 U/L Alkaline Phosphatase 70 46-116 U/L Total Protein 6.4 5.7-8.2 g/dL Albumin 3.9 3.2-4.8 g/dL Troponin I High Sensitivity 16 </=54 ng/L Urine Color Light-yellow Yellow Urine Clarity Clear Clear Urine pH 7.0 5.0-9.0 Urine Specific [place] 1.015 1.001-1.035 Urine Protein Negative Negative Urine Ketones Negative Negative Urine Blood Negative Negative /uL Urine Nitrite Negative Negative Urine Bilirubin Negative Negative Urine Urobilinogen Normal Negative mg/dL Urine Leukocyte Esterase Negative Negative /uL Urine RBC <1 0 - 3 /hpf Urine WBC 1 0 - 3 /hpf Urine Squamous Epithelial Cells None seen <5 /hpf Urine Bacteria None seen None Seen /hpf Urine Glucose Normal Normal mg/dL Magnesium Level 1.9 1.6-2.6 mg/dL B-Type Natriuretic Peptide 831.45 0-100 pg/mL Assessment acute on chronic sytolic and diatolic NYHA Class III HF ckd hx of icd htn hl Plan/Recommendation iv lasix bid resume home meds , hF med cont entresto cont coreg cont lasix consider adding jardiance on dc Plan discussed with: Patient SERRANODEREK MD May 11, 2024 11:08
--- NOTE | 2024-05-11 11:18 | DVHPN2 ---
Progress Note - Dictate Date Seen: May 11, 2024 Medical Necessity Reason Pt with a Central, PICC or Fol: No vital signs Vital Sign Date Time Temp Pulse Resp B/P (MAP) Pulse Ox O2 Delivery O2 Flow Rate FiO2 05/11/24 10:10 117/73 05/11/24 09:24 80 05/11/24 08:32 98.0 20 94 98.0 05/10/24 22:02 Room Air* 0 21 Total Intake and Output 05/10/24 05/10/24 05/11/24 15:00 23:00 07:00 Intake Total 0 ml 100 ml Balance 0 ml 100 ml medications Current Medications Medications Dose Ordered Sig/Manuel Route Start Time Stop Time Status Last Admin Dose Admin Temazepam 15 mg QHSP PRN PO 05/09/24 15:15 05/10/24 22:45 15 MG Ondansetron HCl 4 mg Q4HP PRN IV 05/09/24 15:15 Docusate Sodium 100 mg BIDPRN PRN PO 05/09/24 15:15 Enoxaparin Sodium 40 mg DAILY SC 05/10/24 10:00 Furosemide 40 mg DAILY IV 05/10/24 10:00 05/11/24 10:10 40 MG Nitroglycerin 0.4 mg Q5MINP PRN SL 05/09/24 15:15 05/10/24 16:25 0.4 MG Hydromorphone HCl 1 mg Q4HP PRN IV 05/10/24 08:30 Hold Acetaminophen/ Hydrocodone Bitart 1 tab Q6HP PRN PO 05/10/24 08:30 05/10/24 18:32 1 TAB Clonazepam 0.5 mg BID PRN PO 05/10/24 17:00 05/10/24 22:44 0.5 MG Sacubitril/ Valsartan 1 tab BID PO 05/10/24 22:00 05/11/24 10:11 1 TAB Tamsulosin HCl 0.8 mg DAILY PO 05/11/24 10:00 05/11/24 10:10 0.8 MG Carvedilol 6.25 mg BIDWM PO 05/10/24 18:00 05/11/24 08:24 6.25 MG Patient Own Medication 10 mg DAILY PO 05/11/24 10:00 UNV Patient Own Medication 1 tab DAILY PO 05/11/24 10:00 UNV Venlafaxine HCl 150 mg QAM PO 05/11/24 07:00 05/11/24 05:27 150 MG Losartan Potassium 25 mg DAILY PO 05/11/24 10:00 Hold Pantoprazole Sodium 40 mg DAILY@0600 PO 05/11/24 06:00 05/11/24 05:27 40 MG objective General Appearance: alert, no distress HEENT: EOMI, PERRLA, normal external inspect of ears, no icterus, no nasal drainage Neck: no carotid bruit, no jugular venous distention (JVD), no lymphadenopathy Chest: normal thorax Respiratory: clear to auscultation, normal air movement Cardiovascular: regular rate and rhythm, no diastolic murmur, no jugular venous distention (JVD), no rub, no systolic murmur Abdominal: soft, no hepatomegaly, no mass, no splenomegaly, no tenderness Genitourinary: grossly normal external Musculoskeletal: no joint tenderness, no swelling Extremities: normal pulses, no calf tenderness, no clubbing, no cyanosis, no edema Skin: no bruising, no jaundice, no rash Neurological: alert, No focal deficit laboratory and microbiology Laboratory Tests 05/10/24 04:26 Test 05/10/24 04:26 Range/Units Serum Glucose 92 74-106 mg/dL Problem List 1. Chest pain Monitor EKG, trend troponin, cardiology consult, DVT prophylaxis 2. Acute on chronic systolic CHF exacerbation Monitor, IV diuretics 3. BPH Monitor, continue flomax, PPI 4. Hypothyroid Monitor, continue Synthroid 5. Benign essential HTN Monitor, antihypertensives Assessment/Plan Subjective: Patient is awake and alert. Objective: I spoke with patient at length regarding CODE STATUS. Patient wants to be a modified DNR. Patient was admitted for chest pain. Troponin levels are negative. Patient was seen by cardiology. Patient has approximately 30% EF. Plan: Continue Lasix, Coreg, and Entresto. Echocardiogram is pending. Monitor EKG. Plan discussed with: Patient, Other MANJULA LAN NP May 11, 2024 11:18
[2024-05-11] MEDS: NICOTINE 7MG/24HR TOPICAL PATCH TD SCH (17:04)
[2024-05-12] VITALS (10 sets, daily range): BP systolic 80–99; BP diastolic 44–63; PULSE 64–83; RESP 15–18; TEMP 97.5–98.5; O2SAT 92–100
[2024-05-12] MEDS: LEVOTHYROXINE SODIUM 25 MCG TAB PO SCH (10:22)
[2024-05-12] MEDS: LEVOTHYROXINE SODIUM 100 MCG TAB PO SCH (10:22)
[2024-05-12] MEDS ORDERED: EMPA1TAB PO (12:03)
--- NOTE | 2024-05-12 12:05 | DVHDS2 ---
Discharge Summary Date of Admission May 09, 2024 at 15:04 Date of Discharge: May 12, 2024 Labs/Diagnostic Data: Laboratory Results Test 05/10/24 04:26 05/09/24 11:25 05/09/24 10:02 05/09/24 08:39 White Blood Count 7.3 10^3/uL (4.4-10.8) Red Blood Count 5.06 10^6/uL (4.5-5.90) Hemoglobin 15.6 g/dL (13.5-17.5) Hematocrit 46.9 % (41.0-53.0) Mean Corpuscular Volume 92.7 fL (80.0-100.0) Mean Corpuscular Hemoglobin 30.8 pg (28.0-32.0) Mean Corpuscular Hemoglobin Concent 33.2 g/dL (32.0-36.0) Red Cell Distribution Width 14.6 % (11.8-14.3) Platelet Count 195 10^3/uL (140-450) Mean Platelet Volume 8.5 fL (6.9-10.8) Neutrophils (%) (Auto) 60.3 % (37.0-80.0) Lymphocytes (%) (Auto) 19.8 % (10.0-50.0) Monocytes (%) (Auto) 10.1 % (0.0-12.0) Eosinophils (%) (Auto) 8.6 % (0.0-7.0) Basophils (%) (Auto) 1.2 % (0.0-2.0) Neutrophils # (Auto) 4.4 10 ^3/uL (1.6-8.6) Lymphocytes # (Auto) 1.4 10 ^3/uL (0.4-5.4) Monocytes # (Auto) 0.7 10 ^3/uL (0-1.3) Eosinophils # (Auto) 0.6 10 ^3/uL (0-0.8) Basophils # (Auto) 0.1 10 ^3/uL (0-0.2) Nucleated Red Blood Cells 0.1 % Sodium Level 139 mmol/L (136-145) Potassium Level 4.8 mmol/L (3.5-5.1) Chloride Level 104 mmol/L (98-107) Carbon Dioxide Level 29 mmol/L (20-31) Anion Gap 6 (5-15) Blood Urea Nitrogen 25 mg/dL (9-23) Creatinine 1.45 mg/dL (0.700-1.30) Glomerular Filtration Rate Calc 54 mL/min (>90) BUN/Creatinine Ratio 17.2 (10.0-20.0) Serum Glucose 92 mg/dL (74-106) Calcium Level 9.8 mg/dL (8.7-10.4) Total Bilirubin 0.6 mg/dL (0.2-1.0) Aspartate Amino Transferase (AST) 18 U/L (13-40) Alanine Aminotransferase (ALT) 25 U/L (7-40) Alkaline Phosphatase 70 U/L (46-116) Total Protein 6.4 g/dL (5.7-8.2) Albumin 3.9 g/dL (3.2-4.8) Troponin I High Sensitivity 16 ng/L (</=54) Urine Color Light-yellow (Yellow) Urine Clarity Clear (Clear) Urine pH 7.0 (5.0-9.0) Urine Specific [place] 1.015 (1.001-1.035) Urine Protein Negative (Negative) Urine Ketones Negative (Negative) Urine Blood Negative /uL (Negative) Urine Nitrite Negative (Negative) Urine Bilirubin Negative (Negative) Urine Urobilinogen Normal mg/dL (Negative) Urine Leukocyte Esterase Negative /uL (Negative) Urine RBC <1 /hpf (0 - 3) Urine WBC 1 /hpf (0 - 3) Urine Squamous Epithelial Cells None seen /hpf (<5) Urine Bacteria None seen /hpf (None Seen) Urine Glucose Normal mg/dL (Normal) Magnesium Level 1.9 mg/dL (1.6-2.6) B-Type Natriuretic Peptide 831.45 pg/mL (0-100) Other Laboratory Tests 05/10/24 04:26 Brief Hx & Hospital Course: 63 yo male patient with hx of anxiety, AICD CAD, CHF, CKF, COPD, GERD, DM, HLD, HTN, [place], pacemaker and tobacco use c/o non-radiating left sided chest pain and shortness of breath that has been progressively worsening the past week. Patient denies any other symptoms. Patient was admitted on May 09, 2024 for chest pain. Troponin levels were negative. Patient has acute on chronic systolic heart failure. 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 Russo. Patient was cleared for discharge and Jardiance was sent per cardiology recommendations. Patient will continue with other prior home medications and follow-up with PCP in 1 week. The patient received proper medical treatment and medications. Vital signs, Imaging and Laboratory Work was monitored daily. All consults recommendations were followed as provided. There were no complaints or new complaints upon discharge, all questions and concerns were answered. Patient was advised to return to the ER or call 911 if any headaches, dizziness, shortness of breath, chest pain, bleeding, fevers, or worsening of medical condition. Patient/Family was counseled about treatment plan, medications, possible side effects, patient verbalized understanding. All questions were answered to the best of my ability. The patient symptoms improved and they are okay to be DC. Condition at Discharge: Stable Final Diagnosis/Problems List Chest pain Acute on chronic systolic CHF exacerbation BPH Hypothyroid Benign essential HTN Discharge Disposition: Home Discharge Instruct/Medications Diet: Cardiac 2g Na,low cholest Activity: No Restrictions, As Tolerated Follow Up/Referral: pcp 1 week Medications: Start Jardiance 10 mg daily for cardiovascular even risk reduction per dr russo Discharge Statement: "Patient was advised to return to the ER or call 911 if any headaches, dizziness, shortness of breath, chest pain, abdominal pain, bleeding, fevers, or worsening of medical condition. Patient was counseled about treatment plan, medications, possible side effects, patientverbalized understanding. All questions were answered to the best of my ability. This discharge took greater then 30 minutes in planning, reviewing documentation, counseling the patient, and discussing with other team members." ASSESSMENT ASSESSMENT Assessment Acute on chfonic systolic chf exacerbation MANJULA LAN NP May 12, 2024 12:05
--- NOTE | 2024-05-12 15:49 | ECG ---
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
[2024-05-13 00:41] VITALS: BP 103/72; PULSE 69; RESP 20; TEMP 98.1; O2SAT 94
[2024-05-13 05:17] VITALS: BP 98/60; PULSE 74; RESP 20; TEMP 98.6; O2SAT 97
[2024-05-13 08:00] VITALS: PULSE 83
[2024-05-13 08:58] VITALS: BP 105/68; PULSE 76; RESP 18; TEMP 98.7; O2SAT 96
--- NOTE | 2024-05-13 10:39 | DVHPN2 ---
Progress Note Date Seen: May 13, 2024 Medical Necessity Reason Pt with a Central, PICC or Fol: No Subjective Patient reports: Feels better Objective vital signs Vital Sign Date Time Temp Pulse Resp B/P (MAP) Pulse Ox O2 Delivery O2 Flow Rate FiO2 05/13/24 10:19 72 98/62 05/13/24 08:58 98.7 18 96 98.7 05/12/24 20:00 Room Air* 0 21 Total Intake and Output 05/12/24 05/12/24 05/13/24 15:00 23:00 07:00 Intake Total 800 ml 660 ml Output Total 700 ml Balance 800 ml -40 ml medications Current Medications Medications Dose Ordered Sig/Manuel Route Start Time Stop Time Status Last Admin Dose Admin Temazepam 15 mg QHSP PRN PO 05/09/24 15:15 05/12/24 23:04 15 MG Ondansetron HCl 4 mg Q4HP PRN IV 05/09/24 15:15 Docusate Sodium 100 mg BIDPRN PRN PO 05/09/24 15:15 Enoxaparin Sodium 40 mg DAILY SC 05/10/24 10:00 Furosemide 40 mg DAILY IV 05/10/24 10:00 05/12/24 10:28 40 MG Nitroglycerin 0.4 mg Q5MINP PRN SL 05/09/24 15:15 05/10/24 16:25 0.4 MG Hydromorphone HCl 1 mg Q4HP PRN IV 05/10/24 08:30 Hold Acetaminophen/ Hydrocodone Bitart 1 tab Q6HP PRN PO 05/10/24 08:30 05/13/24 10:29 1 TAB Clonazepam 0.5 mg BID PRN PO 05/10/24 17:00 05/11/24 16:45 0.5 MG Sacubitril/ Valsartan 1 tab BID PO 05/10/24 22:00 05/12/24 10:22 1 TAB Tamsulosin HCl 0.8 mg DAILY PO 05/11/24 10:00 05/13/24 10:19 0.8 MG Carvedilol 6.25 mg BIDWM PO 05/10/24 18:00 05/13/24 10:19 6.25 MG Levothyroxine Sodium 100 mcg QAM PO 05/12/24 07:00 05/13/24 06:11 100 MCG Venlafaxine HCl 150 mg QAM PO 05/11/24 07:00 05/13/24 06:10 150 MG Losartan Potassium 25 mg DAILY PO 05/11/24 10:00 Hold Pantoprazole Sodium 40 mg DAILY@0600 PO 05/11/24 06:00 05/13/24 06:11 40 MG Levothyroxine Sodium 25 mcg QAM PO 05/12/24 07:00 05/13/24 06:10 25 MCG Nicotine 1 patch DAILY TD 05/11/24 17:00 05/13/24 10:21 1 PATCH Examination: GENERAL:Abnormal, HEENT:Abnormal, LUNGS:Abnormal, CVS:Abnormal, ABDOMEN:Abnormal laboratory and microbiology Laboratory Tests 05/10/24 04:26 Test 05/10/24 04:26 Range/Units Serum Glucose 92 74-106 mg/dL Problem List/Assessment/Plan Problem List/Assessment/Plan NICM chf ckd htn hl nyha class III HF dc home on HF meds can add jardiance outpt fu with me Plan discussed with: Patient Date of Service: May 13, 2024 Billing Provider: DEREK SERRANO MD Common Visit Codes: NOT BILLABLE DEREK SERRANO MD May 13, 2024 10:39
--- NOTE | 2024-05-13 10:50 | DVHSR ---
APPROVED REPORT EXAM: Two-dimensional and M-mode echocardiogram with Doppler and color Doppler. Blood Pressure: 103/65 mmHg INDICATION chf RISK FACTORS Height: 5'8, Weight: 180 DIMENSIONS LVDd5.5 (3.8-5.7cm)LA (2D)3.3 (1.9-4.0cm)Aortic Root3.8 (2.0-3.7cm) LVDs4.9 (2.5-4.0cm)LA (MM) (1.9-4.0cm)Aortic Cusp Exc1.6 (1.5-2.0cm) EF (%) 20.0 (55-70%)Rt. Atrium3.7 (1.9-4.0cm)Asc. Aorta3.4 cm IVSd0.7 (0.7-1.1cm)RV (D) (1.8-2.4cm) PWd1.1 (0.7-1.1cm) Mitral Valve MitralMitral Stenosis E wave0.92m/sMV Mean GR.mmHg A wave0.31m/sMV Peak GR.55mmHg E/A ratio3.02D MVAcm2 DECEL [id number] 1/2 Tim[place] Aortic Valve Aortic ValveAortic Stenosis V10.75m/Steve Mean GR.2mmHg V20.78m/Steve Peak GR.2mmHg LVOT Diameter2.0 (1.8-2.4cm)Doppler AVA3.02cm2 Pulmonic Valve V20.85m/s Tricuspid Valve TR Velocity2.68m/s [id number] Conclusion lvef 30% by visual estimate rv pacing lead present left atrium enlarged
[2024-05-13 13:00] VITALS: BP_SYST 100; BP_SYST 105; BP_SYST 96; BP_DIAS 65; BP_DIAS 69; BP_DIAS 72; PULSE 71; RESP 20; TEMP 97.8; O2SAT 96
--- NOTE | 2024-05-13 21:20 | DVHDS2 ---
Discharge Summary Date of Admission May 09, 2024 at 15:04 Date of Discharge: May 13, 2024 Labs/Diagnostic Data: Laboratory Results Test 05/10/24 04:26 05/09/24 11:25 05/09/24 10:02 05/09/24 08:39 White Blood Count 7.3 10^3/uL (4.4-10.8) Red Blood Count 5.06 10^6/uL (4.5-5.90) Hemoglobin 15.6 g/dL (13.5-17.5) Hematocrit 46.9 % (41.0-53.0) Mean Corpuscular Volume 92.7 fL (80.0-100.0) Mean Corpuscular Hemoglobin 30.8 pg (28.0-32.0) Mean Corpuscular Hemoglobin Concent 33.2 g/dL (32.0-36.0) Red Cell Distribution Width 14.6 % (11.8-14.3) Platelet Count 195 10^3/uL (140-450) Mean Platelet Volume 8.5 fL (6.9-10.8) Neutrophils (%) (Auto) 60.3 % (37.0-80.0) Lymphocytes (%) (Auto) 19.8 % (10.0-50.0) Monocytes (%) (Auto) 10.1 % (0.0-12.0) Eosinophils (%) (Auto) 8.6 % (0.0-7.0) Basophils (%) (Auto) 1.2 % (0.0-2.0) Neutrophils # (Auto) 4.4 10 ^3/uL (1.6-8.6) Lymphocytes # (Auto) 1.4 10 ^3/uL (0.4-5.4) Monocytes # (Auto) 0.7 10 ^3/uL (0-1.3) Eosinophils # (Auto) 0.6 10 ^3/uL (0-0.8) Basophils # (Auto) 0.1 10 ^3/uL (0-0.2) Nucleated Red Blood Cells 0.1 % Sodium Level 139 mmol/L (136-145) Potassium Level 4.8 mmol/L (3.5-5.1) Chloride Level 104 mmol/L (98-107) Carbon Dioxide Level 29 mmol/L (20-31) Anion Gap 6 (5-15) Blood Urea Nitrogen 25 mg/dL (9-23) Creatinine 1.45 mg/dL (0.700-1.30) Glomerular Filtration Rate Calc 54 mL/min (>90) BUN/Creatinine Ratio 17.2 (10.0-20.0) Serum Glucose 92 mg/dL (74-106) Calcium Level 9.8 mg/dL (8.7-10.4) Total Bilirubin 0.6 mg/dL (0.2-1.0) Aspartate Amino Transferase (AST) 18 U/L (13-40) Alanine Aminotransferase (ALT) 25 U/L (7-40) Alkaline Phosphatase 70 U/L (46-116) Total Protein 6.4 g/dL (5.7-8.2) Albumin 3.9 g/dL (3.2-4.8) Troponin I High Sensitivity 16 ng/L (</=54) Urine Color Light-yellow (Yellow) Urine Clarity Clear (Clear) Urine pH 7.0 (5.0-9.0) Urine Specific [place] 1.015 (1.001-1.035) Urine Protein Negative (Negative) Urine Ketones Negative (Negative) Urine Blood Negative /uL (Negative) Urine Nitrite Negative (Negative) Urine Bilirubin Negative (Negative) Urine Urobilinogen Normal mg/dL (Negative) Urine Leukocyte Esterase Negative /uL (Negative) Urine RBC <1 /hpf (0 - 3) Urine WBC 1 /hpf (0 - 3) Urine Squamous Epithelial Cells None seen /hpf (<5) Urine Bacteria None seen /hpf (None Seen) Urine Glucose Normal mg/dL (Normal) Magnesium Level 1.9 mg/dL (1.6-2.6) B-Type Natriuretic Peptide 831.45 pg/mL (0-100) Other Laboratory Tests 05/10/24 04:26 Brief Hx & Hospital Course: 63 yo male patient with hx of anxiety, AICD CAD, CHF, CKF, COPD, GERD, DM, HLD, HTN, NH, pacemaker and tobacco use c/o non-radiating left sided chest pain and shortness of breath that has been progressively worsening the past week. Patient denies any other symptoms. Patient was admitted on May 09, 2024 for chest pain. Troponin levels were negative. Chest pain likely musculoskeletal. Patient has acute on chronic systolic heart failure. 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 Russo. Patient was cleared for discharge and Jardiance was sent per cardiology recommendations. Patient will continue with other prior home medications and follow-up with PCP in 1 week. Discharge was held yesterday due to pending cardiac clearance The patient received proper medical treatment and medications. Vital signs, Imaging and Laboratory Work was monitored daily. All consults recommendations were followed as provided. There were no complaints or new complaints upon discharge, all questions and concerns were answered. Patient was advised to return to the ER or call 911 if any headaches, dizziness, shortness of breath, chest pain, bleeding, fevers, or worsening of medical condition. Patient/Family was counseled about treatment plan, medications, possible side effects, patient verbalized understanding. All questions were answered to the best of my ability. The patient symptoms improved and they are okay to be DC. Condition at Discharge: Fair Final Diagnosis/Problems List Acute on chfonic systolic chf exacerbation Chest pain ACS ruled out, chest pain likely musculoskeletal Discharge Disposition: Home Discharge Instruct/Medications Diet: Cardiac 2g Na,low cholest Diet comment: HEART HEALTHY Activity: No Restrictions, As Tolerated Follow Up/Referral: pcp 1 week Medications: Start Jardiance 10 mg daily for cardiovascular even risk reduction per dr russo Discharge Statement: "Patient was advised to return to the ER or call 911 if any headaches, dizziness, shortness of breath, chest pain, abdominal pain, bleeding, fevers, or worsening of medical condition. Patient was counseled about treatment plan, medications, possible side effects, patientverbalized understanding. All questions were answered to the best of my ability. This discharge took greater then 30 minutes in planning, reviewing documentation, counseling the patient, and discussing with other team members." ASSESSMENT ASSESSMENT Assessment Acute on chfonic systolic chf exacerbation CHERRY PARRISH May 13, 2024 21:20
== END 2024-05-13 14:55 | disposition home or self-care (01) | DRG 198 ==
LOC: ER 08:28 → EDBD 08:28 → TELE 15:04 → TELE-WESTW 05-10 22:02
PROVIDERS: ADMIT Nurse Practitioner; ATTEND Nurse Practitioner
DX: R07.89 Other chest pain (principal); I25.10 Atherosclerotic heart disease of native coronary artery without angina pectoris; I50.23 Acute on chronic systolic (congestive) heart failure; I42.8 Other cardiomyopathies; E11.22 Type 2 diabetes mellitus with diabetic chronic kidney disease; I13.0 Hypertensive heart and chronic kidney disease with heart failure and stage 1 through stage 4 chronic kidney disease, or unspecified chronic kidney disease; E03.9 Hypothyroidism, unspecified; E78.5 Hyperlipidemia, unspecified; F17.210 Nicotine dependence, cigarettes, uncomplicated; J44.9 Chronic obstructive pulmonary disease, unspecified; N18.9 Chronic kidney disease, unspecified; N40.0 Benign prostatic hyperplasia without lower urinary tract symptoms; K21.9 Gastro-esophageal reflux disease without esophagitis; F10.20 Alcohol dependence, uncomplicated; Z83.3 Family history of diabetes mellitus; Z82.49 Family history of ischemic heart disease and other diseases of the circulatory system; Z79.4 Long term (current) use of insulin; Z80.3 Family history of malignant neoplasm of breast; Z95.810 Presence of automatic (implantable) cardiac defibrillator; Y90.9 Presence of alcohol in blood, level not specified
CPT/HCPCS: 36415; 70450; 71045; 80053; 81001; 83735; 83880; 84484; 85025; 93005; 93306; 99291; G0378

== ENCOUNTER 2024-05-15 12:26 | Emergency (ER) | payer MEDICAID ==
[~2024-05-15] VITALS: Ht 172.7 cm; Wt 83.8 kg
[~2024-05-15 12:26] MED LIST changes: -AZIT-185 PO; -AZIT-43 PO; -CLON0.5T3 PO; +EMPA1TAB PO; -VENL150T34 PO
[2024-05-15 12:53] VITALS: BP 124/76; RESP 18; O2SAT 97
[2024-05-15 12:56] VITALS: PULSE 77
--- NOTE | 2024-05-15 12:59 | ECG ---
[facility] Test Date: 2024-05-15 Test Time: 12:56:31 Pat Name: XIAO HERNANDEZ Department: ER Room: Gender: M Manager User Interface: LIZETH : 1960 Requested By: DAVI SMITH Order Number: [id number] Reading MD: Measurements Intervals [place] Rate: 77 P: 0 SD: 163 QRS: -48 QRSD: 116 T: 138 QT: 445 QTc: 504 Interpretive Statements Atrial-paced complexes Incomplete left bundle branch block Baseline wander in lead(s) III,V3,V4 Please click the below link to view image of tracing.
--- NOTE | 2024-05-15 13:18 | ED.PDOC ---
History of Present Illness HPI Comments 63 year old male presents to the ED with a chief complaint of shortness of breath onset yesterday. Patient states he was discharged from the hospital 2 days ago and was feeling well. Yesterday, patient began experiencing congestion, runny nose, shortness of breath. PMHx DM, HTN, CAD, CHF, CKF, COPD, depression, HLD, NV. Denies headache, blurry vision, dizziness, nausea, vomiting, diarrhea, abdominal pain. No other symptoms or modifying factors present at this time. Chief Complaint: Shortness of Breath Time Seen by MD: 13:00 Primary Care Provider: haily Reviewed Notes: Medications, Allergies Allergies: Coded Allergies: Morphine (Unverified Allergy, Unknown, 04/18/22) SEVERE BRADYCARDIA Home Meds Active Scripts Empagliflozin (Jardiance) 10 Mg Tab, 10 MG PO DAILY for 30 Days, #30 TAB Prov:MANJULA LAN [employer]ST[employer]ER 05/12/24 Levothyroxine Sodium (Levothyroxine Sodium) 137 Mcg Tab, 1 TAB PO DAILY, #90 TAB 3 Refills Prov:LETY LOPES 02/02/24 Furosemide (Lasix) 20 Mg Tb, 1 TAB PO DAILY, #90 TAB 1 Refill Prov:EUN LI MD 09/16/23 Sacubitril-Valsartan (Entresto 24-26 mg) 1 Tab Tab, 1 TAB PO BID, #180 TAB Prov:EUN LI MD 09/16/23 Reported Medications Dapagliflozin Propanediol (Farxiga) 10 Mg Tab, 10 MG PO DAILY, TAB 09/14/23 Tamsulosin Hcl (Tamsulosin Hcl) 0.4 Mg Cap, 0.8 MG PO DAILY AFTER MEAL, MG 09/14/23 Carvedilol (Carvedilol) 6.25 Mg Tab, 1 TAB PO BIDWM, TAB 09/14/23 Losartan Potassium (Losartan Potassium) 25 Mg Tab, 1 TAB PO DAILY, #90 TAB 1 Refill 04/18/22 Venlafaxine Hcl (Venlafaxine Hcl Er) 150 Mg Cap, 1 CAP PO QAM for DEPRESSION, #30 CAP 1 Refill 12/24/17 Discontinued Reported Medications Venlafaxine Hcl (Venlafaxine Hcl Er) 150 Mg Tab, 1 TAB PO DAILY 02/01/24 Clonazepam (KlonoPIN TABLET) 0.5 Mg Tb, 1 TAB PO BID PRN for ANXIETY, #30 TAB 04/17/17 Discontinued Scripts Azithromycin (Azithromycin) 250 Mg Tab, 250 MG PO DAILY MDD 500 for 5 Days, #5 TAB 0 Refills 2 TABLETS ORALLY ON DAY ONE, THEN 1 TABLET ORALLY DAILY FOR 4 DAYS Prov:IVA LOPESEN RESIDENT 02/02/24 Azithromycin (ZITHROMAX TABLET) 250 Mg Tb, 250 MG PO ONCE for 5 Days, TAB Prov:LETY LOPES RESIDENT 02/02/24 Information Source: Patient Mode of Arrival: Ambulatory Severity: Moderate Timing: Days Duration: Since onset Prehospital treatment: None Past Medical History PAST MEDICAL HISTORY: Anxiety, CAD, CHF, CKF, COPD, Depression, DM, GERD, High Lipids, HTN, NV, Thyroid Surgical History: Pacemaker Family History Family History: Family hx of DM, Family hx of Cancer, Family hx of heart herve, Family hx of HTN Social History Smoker: Cigarettes, Less Than 1 Pack/Day Alcohol: Denies ETOH Use Drugs: Denies Drug Use Lives In: Home Constitutional: denies: chills, diaphoresis, fatigue, fever, malaise, sweats, weakness, others EENTM: reports: nasal discharge, nose congestion; denies: blurred vision, double vision, ear bleeding, ear discharge, ear drainage, ear pain, ear ringing, eye pain, eye redness, hearing loss, mouth pain, mouth swelling, nose bleeding, nose pain, photophobia, tearing, throat pain, throat swelling, voice changes, others Respiratory: reports: shortness of breath; denies: cough, hemoptysis, orthopnea, SOB at rest, SOB with excertion, stridor, wheezing, others Cardiovascular: denies: chest pain, dizzy spells, diaphoresis, Dyspnea on exertion, edema, irregular heart beat, left arm pain, lightheadedness, palpitations, PND, syncope, others Gastrointestinal: denies: abdomen distended, abdominal pain, blood streaked bowels, constipated, diarrhea, dysphagia, difficulty swallowing, hematemesis, melena, nausea, poor appetite, poor fluid intake, rectal bleeding, rectal pain, vomiting, others Genitourinary: denies: burning, dysuria, flank pain, frequency, hematuria, incontinence, penile discharge, penile sore, pain, testicle pain, testicle swelling, urgency, others Neurological: denies: dizziness, fainting, headache, left sided numbness, left sided weakness, numbness, paresthesia, pre-existing deficit, right sided numbness, right sided weakness, seizure, speech problems, tingling, tremors, weakness, others Musculoskeletal: denies: back pain, gout, joint pain, joint swelling, muscle pain, muscle stiffness, neck pain, others Integumetry: denies: bruises, change in color, change in hair/nails, dryness, laceration, lesions, lumps, rash, wounds, others Allergic/Immunocompromised: denies: Difficulty Healing, Frequent Infections, Hives, Itching, others Hematologic/Lymphatic: denies: anemia, blood clots, easy bleeding, easy bruising, swollen glands, others Endocrine: denies: excessive hunger, excessive sweating, excessive thirst, excessive urination, flushing, intolerance to cold, intolerance to heat, unexplained weight gain, unexplained weight loss, others Psychiatric: denies: anxiety, bipolar disorder, depression, hopeless, panic disorder, schizophrenia, sleepless, suicidal, others All Other Systems: Reviewed and Negative Physical Exam General Appearance: Moderate Distress HEENT: Normal ENT Inspection, Pharynx Normal, TMs Normal Neck: Full Range of Motion, Non-Tender, Normal, Normal Inspection Respiratory: Other (Coarse breath sounds) Cardiovascular: No Edema, No JVD, No Murmur, No Gallop, Normal Peripheral Pulses, Regular Rate/Rhythm Breast Exam: Deferred Gastrointestinal: No Organomegaly, Non Tender, No Pulsatile Mass, Normal Bowel Sounds, Soft Genitalia: Deferred Pelvic: Deferred Rectal: Deferred Extremities: No calf tenderness, Normal capillary refill, Normal inspection, Normal range of motion, Non-tender, No pedal edema Musculoskeletal : Apperance: Normal Neurologic: Alert Cerebellar Function: Normal Reflexes: Normal Skin: Dry, Normal Color, Warm Peripheral Pulses: 3+ Radial (R), 3+ Radial (L) Lymphatic: No Adenopathy Was a procedure done? Was a procedure done?: No Differential Dx Considerations may include: Pneumonitis Electrolyte imbalance X-Ray, Labs, Meds, VS Vital Signs Date Time Temp Pulse Resp B/P (MAP) Pulse Ox O2 Delivery O2 Flow Rate FiO2 05/15/24 12:56 77 05/15/24 12:53 98.5 81 18 124/76 (92) 97 Patient alert. Complaining of shortness a breath. Vitals stable. Answering all questions. Was recently discharged from this hospital. States that his symptoms started while in the hospital. Reviewed his previous visit. Unable to ambulate without having shortness a breath. Explained to the patient. Continue cardiac monitoring. Time of 1ST Reevaluation: 13:30 Reevaluation 1ST: Unchanged Patient Education/Counseling: Diagnosis, Treatment, Prognosis Family Education/Counseling: No Family Present Additional Information I reviewed the following notes from patient's past medical encounters: The following tests were ordered, and results were reviewed by me: EKG, TROP, CBC, XY CHEST, UA, BMP I reviewed and agreed with the following test results read by other providers: XY CHEST I discussed treatment and results with medical personnel and patient Departure 1 Departure Time of Disposition: 14:58 Impression: Primary Impression: CHF (congestive heart failure) Qualified Codes: I50.43 - Acute on chronic combined systolic (congestive) and diastolic (congestive) heart failure Additional Impression: COPD with acute exacerbation Disposition: ADMITTED INPATIENT Admit to: Med Surg Condition: Guarded Critical Care Note Critical Care Time?: No Stability Stability form required: No Heart Score Heart Score: Heart Score Response (Comments) Value History Slightly Suspicious 0 EKG Normal 0 Age 45-64 1 Risk Factors >3 or Hx ASHD 2 Troponin Normal limit 0 Total 3 I personally scribed for DAVI SMITH MD ([email or web address]) on 05/15/24 at 13:18. Electronically submitted by Barbara Patterson ([email or web address]). I personally scribed for DAVI SMITH MD ([email or web address]) on 05/15/24 at 15:05. Electronically submitted by Barbara Patterson ([email or web address]). I personally scribed for DAVI SMITH MD ([email or web address]) on 05/15/24 at 15:05. Electronically submitted by Barbara Patterson ([email or web address]). DAVI SMITH MD May 15, 2024 13:18
[2024-05-15] MEDS ORDERED: methylPREDNISolone SOD SUCC 125 MG/2 ML VL IV ONE (15:00)
[2024-05-15] MEDS ORDERED: AZITHROMYCIN 500MG/ 250ML 250 ML IV ONE (15:00)
[2024-05-15] MEDS ORDERED: cefTRIAXone 1GM/50ML D5W 50 ML IV ONE (15:00)
[2024-05-16] MEDS ORDERED: LEVO500T91 PO (05:42)
[2024-05-16] MEDS ORDERED: METR-344 PO (05:42)
[2024-05-16] MEDS ORDERED: LOPE7.5C PO (05:43)
== END 2024-05-15 14:59 | disposition left against medical advice (07) ==
LOC: ER 12:28
DX: J44.1 Chronic obstructive pulmonary disease with (acute) exacerbation (principal); I13.0 Hypertensive heart and chronic kidney disease with heart failure and stage 1 through stage 4 chronic kidney disease, or unspecified chronic kidney disease; E11.22 Type 2 diabetes mellitus with diabetic chronic kidney disease; N18.9 Chronic kidney disease, unspecified; I50.9 Heart failure, unspecified; I25.10 Atherosclerotic heart disease of native coronary artery without angina pectoris; K21.9 Gastro-esophageal reflux disease without esophagitis; F32.A Depression, unspecified; F41.9 Anxiety disorder, unspecified; E78.5 Hyperlipidemia, unspecified; F17.210 Nicotine dependence, cigarettes, uncomplicated; E03.9 Hypothyroidism, unspecified; Z95.0 Presence of cardiac pacemaker; Z79.84 Long term (current) use of oral hypoglycemic drugs; Z79.890 Hormone replacement therapy; Z79.899 Other long term (current) drug therapy; Z88.5 Allergy status to narcotic agent
CPT/HCPCS: 93005

== ENCOUNTER 2024-05-16 03:20 | Emergency (ER) | payer MEDICAID ==
[~2024-05-16] VITALS: Ht 172.7 cm; Wt 81.8 kg
[2024-05-16] MEDS ORDERED: LOPERAMIDE 1 mg/7.5ml ORAL soln PO ONE (04:15)
--- NOTE | 2024-05-16 04:38 | ED.PDOC ---
History of Present Illness HPI Comments 63 y/o M presents with c/o abdominal pain, nausea, vomiting, diarrhea, and productive cough, today. Patient endorses on having symptoms since initial unprovoked onset at around 1600, yesterday. Patient states on having yellow phlegm production and having Hx of similar symptoms prior in the past. He reports no recent sick contact, travel, spoiled food intake, or additional relevant or significant Hx. He denies any hematemesis, hematochezia, urinary symptoms, shortness of breath, fever, chills, or other associated symptoms or modifiers at this time. Chief Complaint: Diarrhea Time Seen by MD: 04:00 Primary Care Provider: haily Reviewed Notes: Nurses Notes, Medications, Allergies Allergies: Coded Allergies: Morphine (Unverified Allergy, Unknown, 04/18/22) SEVERE BRADYCARDIA Home Meds Active Scripts Empagliflozin (Jardiance) 10 Mg Tab, 10 MG PO DAILY for 30 Days, #30 TAB Prov:MANJULA LAN NEW BUSINESS CLERK 05/12/24 Levothyroxine Sodium (Levothyroxine Sodium) 137 Mcg Tab, 1 TAB PO DAILY, #90 TAB 3 Refills Prov:LETY LOPES RESIDENT 02/02/24 Furosemide (Lasix) 20 Mg Tb, 1 TAB PO DAILY, #90 TAB 1 Refill Prov:EUN LI MD 09/16/23 Sacubitril-Valsartan (Entresto 24-26 mg) 1 Tab Tab, 1 TAB PO BID, #180 TAB Prov:EUN LI MD 09/16/23 Reported Medications Dapagliflozin Propanediol (Farxiga) 10 Mg Tab, 10 MG PO DAILY, TAB 09/14/23 Tamsulosin Hcl (Tamsulosin Hcl) 0.4 Mg Cap, 0.8 MG PO DAILY AFTER MEAL, MG 09/14/23 Carvedilol (Carvedilol) 6.25 Mg Tab, 1 TAB PO BIDWM, TAB 09/14/23 Losartan Potassium (Losartan Potassium) 25 Mg Tab, 1 TAB PO DAILY, #90 TAB 1 Refill 04/18/22 Venlafaxine Hcl (Venlafaxine Hcl Er) 150 Mg Cap, 1 CAP PO QAM for DEPRESSION, #30 CAP 1 Refill 12/24/17 Discontinued Reported Medications Venlafaxine Hcl (Venlafaxine Hcl Er) 150 Mg Tab, 1 TAB PO DAILY 02/01/24 Clonazepam (KlonoPIN TABLET) 0.5 Mg Tb, 1 TAB PO BID PRN for ANXIETY, #30 TAB 04/17/17 Discontinued Scripts Azithromycin (Azithromycin) 250 Mg Tab, 250 MG PO DAILY MDD 500 for 5 Days, #5 TAB 0 Refills 2 TABLETS ORALLY ON DAY ONE, THEN 1 TABLET ORALLY DAILY FOR 4 DAYS Prov:LETY LOPES RESIDENT 02/02/24 Azithromycin (ZITHROMAX TABLET) 250 Mg Tb, 250 MG PO ONCE for 5 Days, TAB Prov:LETY LOPES RESIDENT 02/02/24 Information Source: Patient Mode of Arrival: EMS Severity: Moderate Timing: Hours Duration: Since onset Prehospital treatment: None Past Medical History PAST MEDICAL HISTORY: Anxiety, CAD, CHF, CKF, COPD, Depression, DM, GERD, High Lipids, HTN, [place], Thyroid Surgical History: Pacemaker Family History Family History: Family hx of DM, Family hx of Cancer, Family hx of heart herve, Family hx of HTN Social History Smoker: Cigarettes, Less Than 1 Pack/Day Alcohol: Denies ETOH Use Drugs: Denies Drug Use Lives In: Home Respiratory: reports: cough Gastrointestinal: reports: abdominal pain, diarrhea, nausea, vomiting All Other Systems: Reviewed and Negative (negative unless otherwise stated above or in HPI) Physical Exam General Appearance: Moderate Distress, Normal HEENT: Normal ENT Inspection, Pharynx Normal, TMs Normal Neck: Full Range of Motion, Non-Tender, Normal, Normal Inspection Respiratory: Chest Non-Tender, Lungs Clear, No Accessory Muscle Use, No Respiratory Distress, Normal Breath Sounds Cardiovascular: No Edema, No JVD, No Murmur, No Gallop, Normal Peripheral Pulses, Regular Rate/Rhythm Breast Exam: Deferred Gastrointestinal: Diffuse (tenderness), No Organomegaly, No Pulsatile Mass, Normal Bowel Sounds, Soft, Tenderness (diffused ) Genitalia: Deferred Pelvic: Deferred Rectal: Deferred Extremities: No calf tenderness, Normal capillary refill, Normal inspection, Normal range of motion, Non-tender, No pedal edema Musculoskeletal : Apperance: Normal Neurologic: Alert, juke box servicer II-XII nml as Tested, No Motor Deficits, Normal Affect, Normal Mood, No Sensory Deficits Cerebellar Function: Normal Reflexes: Normal Skin: Dry, Normal Color, Warm Lymphatic: No Adenopathy Was a procedure done? Was a procedure done?: No Differential Dx Considerations may include: gastritis, gastroenteritis, viral syndrome, electrolyte imbalance, dehydration, acute abdomen X-Ray, Labs, Meds, VS Vital Signs Date Time Temp Pulse Resp B/P (MAP) Pulse Ox O2 Delivery O2 Flow Rate FiO2 05/16/24 03:28 98.5 80 22 107/61 (76) 98 Lab Test 05/16/24 05:04 Range/Units White Blood Count 6.3 4.4-10.8 10^3/uL Red Blood Count 5.35 4.5-5.90 10^6/uL Hemoglobin 16.6 13.5-17.5 g/dL Hematocrit 49.8 41.0-53.0 % Mean Corpuscular Volume 93.0 80.0-100.0 fL Mean Corpuscular Hemoglobin 31.0 28.0-32.0 pg Mean Corpuscular Hemoglobin Concent 33.3 32.0-36.0 g/dL Red Cell Distribution Width 14.7 H 11.8-14.3 % Platelet Count 187 140-450 10^3/uL Mean Platelet Volume 8.3 6.9-10.8 fL Neutrophils (%) (Auto) 73.2 37.0-80.0 % Lymphocytes (%) (Auto) 11.4 10.0-50.0 % Monocytes (%) (Auto) 13.1 H 0.0-12.0 % Eosinophils (%) (Auto) 1.1 0.0-7.0 % Basophils (%) (Auto) 1.2 0.0-2.0 % Neutrophils # (Auto) 4.6 1.6-8.6 10 ^3/uL Lymphocytes # (Auto) 0.7 0.4-5.4 10 ^3/uL Monocytes # (Auto) 0.8 0-1.3 10 ^3/uL Eosinophils # (Auto) 0.1 0-0.8 10 ^3/uL Basophils # (Auto) 0.1 0-0.2 10 ^3/uL Nucleated Red Blood Cells 0.1 % Sodium Level Pending Potassium Level Pending Chloride Level Pending Carbon Dioxide Level Pending Anion Gap Pending Blood Urea Nitrogen Pending Creatinine Pending Glomerular Filtration Rate Calc Pending BUN/Creatinine Ratio Pending Serum Glucose Pending Calcium Level Pending Total Bilirubin Pending Aspartate Amino Transferase (AST) Pending Alanine Aminotransferase (ALT) Pending Alkaline Phosphatase Pending Troponin I High Sensitivity Pending B-Type Natriuretic Peptide Pending Total Protein Pending Albumin Pending Current Medications Medications (Trade) Dose Ordered Sig/Manuel Route Start Time Stop Time Status Last Admin Ondansetron HCl (Zofran) 4 mg ONCE ONCE IV 05/16/24 04:15 05/16/24 04:21 DC 05/16/24 05:02 Loperamide HCl (Imodium Capsule) 4 mg ONCE ONCE PO 05/16/24 05:00 05/16/24 05:01 DC 05/16/24 05:02 [place] [address] Ph: [phone] DIAGNOSTIC IMAGING Diagnostic Imaging Report : [id number] Signed PATIENT: XIAO HERNANDEZ ACCT: [id number] UNIT: [id number] : 1960 LOC: ER ROOM / BED: / AGE / SEX: 63 / M ADM STATUS: REG ER SERVICE 9 ORDERING PHYSICIAN: DAYAN MCLEAN MD PROCEDURE(s): CXRP - CHEST PORTABLE REASON: abd pain ORDER NUMBER(s): [id number], ACCESSION NUMBER(s): [id number] CHEST RADIOGRAPH Indication: abd pain Technique: Single frontal view of the chest was obtained COMPARISON: XY CHEST PORTABLE on DOS: 05/09/24, XY CHEST XRAY 1 VIEW on DOS: 01/31/24, XY CHEST PORTABLE on DOS: 09/13/23, XY CHEST PORTABLE on DOS: 08/02/23, CHEST PORTABLE on DOS: 01/08/20 FINDINGS: Lines and Tubes: Left chest wall pacemaker Lungs: Congestion Pleura: No effusion. No pneumothorax. Cardiomediastinal contours: Unremarkable Bones: Unremarkable IMPRESSION: Mild congestion ATED BY: HARRIS RODAS MD DICTATED DATE/TIME: 05/16/24503 SIGNED BY: HARRIS RODAS MD SIGNED DATE/TIME: 05/16/24503 CC: [address] [address] Ph: [phone] DIAGNOSTIC IMAGING Diagnostic Imaging Report : [id number] Signed PATIENT: XIAO HERNANDEZ ACCT: [id number] UNIT: [id number] : 1960 LOC: ER ROOM / BED: / AGE / SEX: 63 / M ADM STATUS: REG ER SERVICE 0410 ORDERING PHYSICIAN: DAYAN MCLEAN MD PROCEDURE(s): ABPL - CT AB PEL WO CON-NO ORAL OR IV REASON: abd pain ORDER NUMBER(s): [id number], ACCESSION NUMBER(s): [id number] Exam: CT CT AB PEL WO CON-NO ORAL OR IV History: abd pain Comparison Study: CT of the abdomen pelvis performed on 01/31/2024 Technique: Multidetector spiral CT of the abdomen and pelvis was performed from lung bases to pubic symphysis. Imaging was performed without intravenous contrast. Coronal and sagittal multiplanar reformats were obtained from the axial data set by the technologist. Radiation Dose : 1. Abdomen/Pelvis: CTDIvol 12.2 mGy, DLP 652.6 mGy*cm. Findings: Evaluation of vasculature and solid organs is limited due to lack of intravenous contrast use. Lung Bases: Lung bases are clear. Visualized portions of the heart and pericardium are unremarkable. Liver: The liver is normal in size. Diffusely hypoattenuating liver parenchyma consistent with hepatic steatosis. No focal lesions. Gallbladder and Biliary Tree: The gallbladder is unremarkable. No intrahepatic or extrahepatic biliary ductal dilatation. Spleen: Unremarkable Pancreas: The pancreas is grossly unremarkable. Adrenal Glands: Unremarkable Kidneys: Kidneys are unremarkable without calculi or hydronephrosis. GI tract: The stomach is grossly normal in appearance. Fluid-filled small bowel loops without significant dilatation. The colon is unremarkable. The appendix is visualized and is normal. Peritoneum/mesentery/retroperitoneum. No evidence of free intraperitoneal air. No ascites. No evidence of suspicious lymphadenopathy. Abdominal Wall: Unremarkable. Vasculature: The visualized abdominal aorta is normal in size and caliber. Evaluation of abdominal and pelvic vessels is limited due to lack of intravenous contrast. Urinary Bladder: Grossly unremarkable for degree of distention. Pelvic Organs: Unremarkable Musculoskeletal: No aggressive focal bony lesions, acute fractures or dislocation. IMPRESSION: 1. Fluid-filled small bowel loops, nonspecific. Findings may reflect enteritis in the appropriate clinical setting. No small bowel obstruction at this time. 2. Normal appendix. ATED BY: PATRIC SINGH MD DICTATED DATE/TIME: 05/16/24523 SIGNED BY: PATRIC SINGH MD SIGNED DATE/TIME: 05/16/24523 CC: CBC is normal. The patient is afebrile. He will be discharged with Flagyl Levaquin and Imodium. Time of 1ST Reevaluation: 04:30 Reevaluation 1ST: Unchanged Patient Education/Counseling: Diagnosis, Treatment Family Education/Counseling: No Family Present Departure 1 Departure Time of Disposition: 05:41 Impression: Primary Impression: Enteritis Disposition: HOME / SELF CARE / HOMELESS Condition: Stable Additional Instructions: Reassessed patient, vital signs stable. Denies any new symptoms. Patient is able to tolerate PO and ambulate/be mobile at their baseline without concern. Risks and benefits of all medications given or prescribed, if any, discussed. All lab work, imaging and diagnostic studies were reviewed by me. The patient was counseled extensively on my clinical impression, diagnosis, expected course of the disease, and plan, including their follow-up care. Will discharge patient. Patient instructed to follow up with Primary Care Physician within 24-48 hours. Strict return precautions given for further exacerbation of symptoms or for new symptoms. The patient was given the opportunity to ask questions and all questions were answered by myself and the nursing/tech staff. Patient is in agreement with the care plan. The patient verbally expressed understanding of the discharge instructions, including the reasons to return to the Emergency Department. e-Prescriptions Loperamide HCl (Imodium A-D) 2 Mg Cap 4 MG PO QIDPRN, #30 CAP Prov: DAYAN MCLEAN MD 05/16/24 Levofloxacin Hemihydrate (LEVAQUIN 500 MG) 500 Mg Tab 500 MG PO DAILY for 7 Days, #7 TAB Prov: DAYAN MCLEAN MD 05/16/24 Metronidazole (Flagyl) 500 Mg Tab 500 MG PO TID, #20 TAB Prov: DAYAN MCLEAN MD 05/16/24 Discharged With: Self Critical Care Note Critical Care Time?: No Stability Stability form required: No Heart Score Heart Score: Heart Score Response (Comments) Value History N/A 0 EKG N/A 0 Age N/A 0 Risk Factors N/A 0 Troponin N/A 0 Total 0 I personally scribed for DAYAN MCLEAN MD ([email or web address]) on 05/16/24 at 04:38. Electronically submitted by Solomon Garcia ([email or web address]). I personally scribed for DAYAN MCLEAN MD ([email or web address]) on 05/16/24 at 05:40. Electronically submitted by Solomon Garcia [email or web address]). DAYAN MCLEAN MD May 16, 2024 04:38
[2024-05-16] MEDS: ONDANSETRON HCL 4 MG/2 ML VIAL IV ONE (05:02)
[2024-05-16] MEDS: KETOROLAC TROMETH 30 MG/ML 1ML VIAL IV ONE (05:02)
[2024-05-16] MEDS: LOPERAMIDE HCL 2 MG CAP/TAB PO ONE (05:02)
--- NOTE | 2024-05-16 05:08 | DVH ---
CHEST RADIOGRAPH Indication: abd pain Technique: Single frontal view of the chest was obtained COMPARISON: XY CHEST PORTABLE on DOS: 05/09/24, XY CHEST XRAY 1 VIEW on DOS: 01/31/24, XY CHEST PORTAB LE on DOS: 09/13/23, XY CHEST PORTABLE on DOS: 08/02/23, CHEST PORTABLE on DOS: 01/08/20 FINDINGS: Lines and Tubes: Left chest wall pacemaker Lungs: Congestion Pleura: No effusion. No pneumothorax. Cardiomediastinal contours: Unremarkable Bones: Unremarkable IMPRESSION: Mild congestion
[2024-05-16 05:17] LABS: Basophils # (auto) 0.1 10 ^3/uL (0-0.2); Basophils % (auto) 1.2 % (0.0-2.0); Eosinophils # (auto) 0.1 10 ^3/uL (0-0.8); Eosinophils % (auto) 1.1 % (0.0-7.0); Hematocrit 49.8 % (41.0-53.0); Hemoglobin 16.6 g/dL (13.5-17.5); Lymphocytes # (auto) 0.7 10 ^3/uL (0.4-5.4); Lymphocytes % (auto) 11.4 % (10.0-50.0); Mean Corpuscular Hgb Conc. 33.3 g/dL (32.0-36.0); Monocytes # (auto) 0.8 10 ^3/uL (0-1.3); Monocytes % (auto) 13.1 % (0.0-12.0); Neutrophils # (auto) 4.6 10 ^3/uL (1.6-8.6); Neutrophils % (auto) 73.2 % (37.0-80.0); Nucleated Red Blood Cells % 0.1 %; Platelet Count (auto) 187 10^3/uL (140-450); Red Blood Cells 5.35 10^6/uL (4.5-5.90); Red Cell Distribution Width 14.7 % (11.8-14.3); White Blood Cell 6.3 10^3/uL (4.4-10.8)
--- NOTE | 2024-05-16 05:27 | DVH ---
Exam: CT CT AB PEL WO CON-NO ORAL OR IV History: abd pain Comparison Study: CT of the abdomen pelvis performed on 01/31/2024 Technique: Multidetector spiral CT of the abdomen and pelvis was performed from lung bases to pubic s ymphysis. Imaging was performed without intravenous contrast. Coronal and sagittal multiplanar refor mats were obtained from the axial data set by the technologist. Radiation Dose : 1. Abdomen/Pelvis: CTDIvol 12.2 mGy, DLP 652.6 mGy*cm. Findings: Evaluation of vasculature and solid organs is limited due to lack of intravenous contrast use. Lung Bases: Lung bases are clear. Visualized portions of the heart and pericardium are unremarkable. Liver: The liver is normal in size. Diffusely hypoattenuating liver parenchyma consistent with hepati c steatosis. No focal lesions. Gallbladder and Biliary Tree: The gallbladder is unremarkable. No intrahepatic or extrahepatic bilia ry ductal dilatation. Spleen: Unremarkable Pancreas: The pancreas is grossly unremarkable. Adrenal Glands: Unremarkable Kidneys: Kidneys are unremarkable without calculi or hydronephrosis. GI tract: The stomach is grossly normal in appearance. Fluid-filled small bowel loops without signif icant dilatation. The colon is unremarkable. The appendix is visualized and is normal. Peritoneum/mesentery/retroperitoneum. No evidence of free intraperitoneal air. No ascites. No evidenc e of suspicious lymphadenopathy. Abdominal Wall: Unremarkable. Vasculature: The visualized abdominal aorta is normal in size and caliber. Evaluation of abdominal a nd pelvic vessels is limited due to lack of intravenous contrast. Urinary Bladder: Grossly unremarkable for degree of distention. Pelvic Organs: Unremarkable Musculoskeletal: No aggressive focal bony lesions, acute fractures or dislocation. IMPRESSION: 1. Fluid-filled small bowel loops, nonspecific. Findings may reflect enteritis in the appropriate cl inical setting. No small bowel obstruction at this time. 2. Normal appendix.
[2024-05-16] MEDS ORDERED: LEVO500T91 PO (05:42)
[2024-05-16] MEDS ORDERED: METR-344 PO (05:42)
[2024-05-16 05:43] LABS: Alanine Aminotransferase 22 U/L (7-40); Albumin 4.1 g/dL (3.2-4.8); Alkaline Phosphatase 72 U/L (46-116); Aspartate Aminotransferase 32 U/L (13-40); BUN/Creatinine Ratio 19.6 (10.0-20.0); Bilirubin, Total 0.6 mg/dL (0.2-1.0); Chloride 105 mmol/L (98-107); Glucose 98 mg/dL (74-106); Potassium 4.5 mmol/L (3.5-5.1); Sodium 137 mmol/L (136-145)
[2024-05-16] MEDS ORDERED: LOPE7.5C PO (05:43)
[2024-05-16 05:44] LABS: Total Protein 6.5 g/dL (5.7-8.2)
[2024-05-16 05:57] LABS: Blood Urea Nitrogen 31 mg/dL (9-23); Calcium 8.3 mg/dL (8.7-10.4)
[2024-05-16 06:02] LABS: Anion Gap 13 (5-15)
[2024-05-16 06:04] VITALS: BP 118/79; PULSE 85; RESP 18; TEMP 98.5; O2SAT 96
[2024-05-16 06:12] LABS: Carbon Dioxide 19 mmol/L (20-31)
== END 2024-05-16 06:08 | disposition home or self-care (01) ==
LOC: EDUNIT# 03:20 → EDBD 03:20 → ER 03:20
DX: K52.9 Noninfective gastroenteritis and colitis, unspecified (principal); I13.0 Hypertensive heart and chronic kidney disease with heart failure and stage 1 through stage 4 chronic kidney disease, or unspecified chronic kidney disease; E11.22 Type 2 diabetes mellitus with diabetic chronic kidney disease; N18.9 Chronic kidney disease, unspecified; I50.9 Heart failure, unspecified; I25.10 Atherosclerotic heart disease of native coronary artery without angina pectoris; J44.9 Chronic obstructive pulmonary disease, unspecified; F41.9 Anxiety disorder, unspecified; F32.A Depression, unspecified; K21.9 Gastro-esophageal reflux disease without esophagitis; E78.5 Hyperlipidemia, unspecified; I25.2 Old myocardial infarction; F17.210 Nicotine dependence, cigarettes, uncomplicated; Z95.0 Presence of cardiac pacemaker; Z88.5 Allergy status to narcotic agent; Z79.84 Long term (current) use of oral hypoglycemic drugs; Z79.899 Other long term (current) drug therapy
CPT/HCPCS: 36415; 71045; 74176; 80053; 83880; 84484; 85025; 96374; 99285; J1885; J2405

== ENCOUNTER 2024-07-03 04:49 | Inpatient (IN) | payer MEDICAID ==
[~2024-07-03] VITALS: Ht 172.7 cm; Wt 84.4 kg
[~2024-07-03 04:49] MED LIST changes: +CLON0.5T4 PO; +LEVO125T7 PO; +LEVO500T91 PO; +LOPE7.5C PO; +METR-344 PO; +VENL150T34 PO
[2024-07-03 05:21] LABS: Basophils # (auto) 0.1 10 ^3/uL (0-0.2); Basophils % (auto) 1.3 % (0.0-2.0); Eosinophils # (auto) 0.5 10 ^3/uL (0-0.8); Eosinophils % (auto) 8.4 % (0.0-7.0); Hematocrit 43.9 % (41.0-53.0); Lymphocytes # (auto) 1.4 10 ^3/uL (0.4-5.4); Lymphocytes % (auto) 23.7 % (10.0-50.0); Mean Corpuscular Hemoglobin 29.6 pg (28.0-32.0); Mean Corpuscular Volume 92.6 fL (80.0-100.0); Monocytes # (auto) 0.6 10 ^3/uL (0-1.3); Monocytes % (auto) 10.4 % (0.0-12.0); Neutrophils # (auto) 3.3 10 ^3/uL (1.6-8.6); Neutrophils % (auto) 56.2 % (37.0-80.0); Nucleated Red Blood Cells % 0.1 %; Platelet Count (auto) 206 10^3/uL (140-450); Red Blood Cells 4.74 10^6/uL (4.5-5.90); Red Cell Distribution Width 14.9 % (11.8-14.3)
--- NOTE | 2024-07-03 05:27 | ED.PDOC ---
History of Present Illness HPI Comments 63 y/o M is BIBA for c/o chest pain, today. Per EMS report, patient endorses on sudden and unprovoked onset of symptoms, this morning, 2x hour prior to arrival. He claims on his AICD discharging and experiencing initial sharp pain near his left-chest wall and taking 324 ASA prior to EMS arrival. Patient was noted to have been found with stable vitals within normal limits on scene and was given 1x NTG en route. Upon arrival to ED and time of assessment, patient claims on pain, now, being heavy and pressure-like in quality. He also comments on his AICD placed due to his "heart being weak" and having it checked and cleared, recently, by his pot puncher. Patient has a reported history of anxiety, CAD, CHF, CKF, COPD, DM, GERD, HLD, HTN, NM, AICD, and thyroid disease. Patient comments on no recent stressors, injuries, sick contact, or further relevant or pertinent information. He denies having any shortness of breath, palpitations, cough, fever, chills, nausea, vomiting, or other associated symptoms or modifiers at this time. Chief Complaint: Chest Pain Time Seen by MD: 04:50 Primary Care Provider: haily Reviewed Notes: Nurses Notes, Landing Support Specialist Notes, Medications, Allergies Allergies: Coded Allergies: Morphine (Unverified Allergy, Unknown, 04/18/22) SEVERE BRADYCARDIA Home Meds Active Scripts Loperamide HCl (Imodium A-D) 2 Mg Cap, 4 MG PO QIDPRN, #30 CAP Prov:DAYAN MCLEAN MD 05/16/24 Levofloxacin Hemihydrate (LEVAQUIN 500 MG) 500 Mg Tab, 500 MG PO DAILY for 7 Days, #7 TAB Prov:DAYAN MCLEAN MD 05/16/24 Metronidazole (Flagyl) 500 Mg Tab, 500 MG PO TID, #20 TAB Prov:DAYAN MCLEAN MD 05/16/24 Empagliflozin (Jardiance) 10 Mg Tab, 10 MG PO DAILY for 30 Days, #30 TAB Prov:MANJULA LAN INFORMAL WAITER/WAITRESS 05/12/24 Levothyroxine Sodium (Levothyroxine Sodium) 137 Mcg Tab, 1 TAB PO DAILY, #90 TAB 3 Refills Prov:LETY LOPES RESIDENT 02/02/24 Furosemide (Lasix) 20 Mg Tb, 1 TAB PO DAILY, #90 TAB 1 Refill Prov:EUN LI MD 09/16/23 Sacubitril-Valsartan (Entresto 24-26 mg) 1 Tab Tab, 1 TAB PO BID, #180 TAB Prov:EUN LI MD 09/16/23 Reported Medications Dapagliflozin Propanediol (Farxiga) 10 Mg Tab, 10 MG PO DAILY, TAB 09/14/23 Tamsulosin Hcl (Tamsulosin Hcl) 0.4 Mg Cap, 0.8 MG PO DAILY AFTER MEAL, MG 09/14/23 Carvedilol (Carvedilol) 6.25 Mg Tab, 1 TAB PO BIDWM, TAB 09/14/23 Losartan Potassium (Losartan Potassium) 25 Mg Tab, 1 TAB PO DAILY, #90 TAB 1 Refill 04/18/22 Venlafaxine Hcl (Venlafaxine Hcl Er) 150 Mg Cap, 1 CAP PO QAM for DEPRESSION, #30 CAP 1 Refill 12/24/17 Information Source: Patient, Emergency Med Personnel Mode of Arrival: EMS Severity: Moderate Timing: Hours Duration: Since onset Prehospital treatment: 12 Lead EKG, [employer] Tank[employer] Truck Driver, NTG Past Medical History PAST MEDICAL HISTORY: Anxiety, CAD, CHF, CKF, COPD, Depression, DM, GERD, High Lipids, HTN, NM, Thyroid Surgical History: Pacemaker Family History Family History: Family hx of DM, Family hx of Cancer, Family hx of heart herve, Family hx of HTN Social History Smoker: Cigarettes, Less Than 1 Pack/Day Alcohol: Denies ETOH Use Drugs: Denies Drug Use Lives In: Home Cardiovascular: reports: chest pain All Other Systems: Reviewed and Negative (negative unless otherwise stated above or in HPI) Physical Exam General Appearance: No Apparent Distress, Normal HEENT: Normal ENT Inspection, Pharynx Normal, TMs Normal Neck: Full Range of Motion, Non-Tender, Normal, Normal Inspection Respiratory: Chest Non-Tender, Lungs Clear, No Accessory Muscle Use, No Respiratory Distress, Normal Breath Sounds Cardiovascular: No Edema, No JVD, No Murmur, No Gallop, Normal Peripheral Pulses, Regular Rate/Rhythm, Other (tenderness reproducible to left-chest wall near AICD) Breast Exam: Deferred Gastrointestinal: No Organomegaly, Non Tender, No Pulsatile Mass, Normal Bowel Sounds, Soft Genitalia: Deferred Pelvic: Deferred Rectal: Deferred Extremities: No calf tenderness, Normal capillary refill, Normal inspection, Normal range of motion, Non-tender, No pedal edema Musculoskeletal : Location: Left Extremity Location: Chest Apperance: Normal, Tenderness (tenderness reproducible to left-chest wall near AICD) Neurologic: Alert, russian teacher II-XII nml as Tested, No Motor Deficits, Normal Affect, Normal Mood, No Sensory Deficits Cerebellar Function: Normal Reflexes: Normal Skin: Dry, Normal Color, Warm Lymphatic: No Adenopathy Was a procedure done? Was a procedure done?: No EKG EKG : Pulse Rate (adult): 79 [place]: Normal Cardiac Rhythm: NSR Block: None Hypertrophy: None ST: Normal Differential Dx Considerations may include: Differential diagnosis includes but not limited to: angina, myocardial infarction, pulmonary embolus, pleurisy, musculoskeletal etiology and others X-Ray, Labs, Meds, VS Vital Signs Date Time Temp Pulse Resp B/P (MAP) Pulse Ox O2 Delivery O2 Flow Rate FiO2 07/03/24 08:00 102 20 112/65 (81) 100 07/03/24 07:39 101 07/03/24 07:30 90 18 100 Room Air* 0 21 07/03/24 07:30 98.0 90 16 122/81 (95) 100 98.0 07/03/24 05:52 97.9 80 20 114/72 (86) 96 97.9 07/03/24 05:52 80 20 96 Room Air* 0 21 07/03/24 05:27 79 07/03/24 04:51 79 07/03/24 04:49 98.3 75 18 102/67 (79) 97 Lab Test 07/03/24 06:38 07/03/24 05:06 Range/Units Troponin I High Sensitivity 25 27 </=54 ng/L White Blood Count 6.0 4.4-10.8 10^3/uL Red Blood Count 4.74 4.5-5.90 10^6/uL Hemoglobin 14.0 13.5-17.5 g/dL Hematocrit 43.9 41.0-53.0 % Mean Corpuscular Volume 92.6 80.0-100.0 fL Mean Corpuscular Hemoglobin 29.6 28.0-32.0 pg Mean Corpuscular Hemoglobin Concent 32.0 32.0-36.0 g/dL Red Cell Distribution Width 14.9 H 11.8-14.3 % Platelet Count 206 140-450 10^3/uL Mean Platelet Volume 8.9 6.9-10.8 fL Neutrophils (%) (Auto) 56.2 37.0-80.0 % Lymphocytes (%) (Auto) 23.7 10.0-50.0 % Monocytes (%) (Auto) 10.4 0.0-12.0 % Eosinophils (%) (Auto) 8.4 H 0.0-7.0 % Basophils (%) (Auto) 1.3 0.0-2.0 % Neutrophils # (Auto) 3.3 1.6-8.6 10 ^3/uL Lymphocytes # (Auto) 1.4 0.4-5.4 10 ^3/uL Monocytes # (Auto) 0.6 0-1.3 10 ^3/uL Eosinophils # (Auto) 0.5 0-0.8 10 ^3/uL Basophils # (Auto) 0.1 0-0.2 10 ^3/uL Nucleated Red Blood Cells 0.1 % Sodium Level 142 136-145 mmol/L Potassium Level 3.8 3.5-5.1 mmol/L Chloride Level 106 98-107 mmol/L Carbon Dioxide Level 29 20-31 mmol/L Anion Gap 7 5-15 Blood Urea Nitrogen 20 9-23 mg/dL Creatinine 1.21 0.700-1.30 mg/dL Glomerular Filtration Rate Calc 67 >90 mL/min BUN/Creatinine Ratio 16.5 10.0-20.0 Serum Glucose 114 H 74-106 mg/dL Calcium Level 9.5 8.7-10.4 mg/dL Total Bilirubin 0.3 0.2-1.0 mg/dL Aspartate Amino Transferase (AST) 21 13-40 U/L Alanine Aminotransferase (ALT) 31 7-40 U/L Alkaline Phosphatase 76 46-116 U/L Total Protein 5.9 5.7-8.2 g/dL Albumin 3.8 3.2-4.8 g/dL Current Medications Medications (Trade) Dose Ordered Sig/Manuel Route Start Time Stop Time Status Last Admin Aspirin (Ecotrin Enteric Coated Tablet) 325 mg ONCE ONCE PO 07/03/24 06:30 07/03/24 06:31 DC 07/03/24 06:40 Time of 1ST Reevaluation: 05:00 Reevaluation 1ST: Unchanged Patient Education/Counseling: Diagnosis, Treatment Family Education/Counseling: Diagnosis, Treatment Departure 1 Departure Time of Disposition: 05:30 Impression: Primary Impression: Chest pain Additional Impression: ACS (acute coronary syndrome) Disposition: 09 ADMITTED INPATIENT Admit to: Tele Condition: Guarded Discharged With: Self Critical Care Note Critical Care Time?: Yes (35 min-critical care time only) Critical care comment: Total critical care time: Approximately 36 minutes Due to a high probability of clinically significant, life threatening deterioration, the patient required my highest level of preparedness to intervene emergently and I personally spent this critical care time directly and personally managing the patient. This critical care time included obtaining a history; examining the patient; pulse oximetry; ordering and review of studies; arranging urgent treatment with development of a management plan; evaluation of patient's response to treatment; frequent reassessment; and, discussions with other providers. This critical care time was performed to assess and manage the high probability of imminent, life-threatening deterioration that could result in multi-organ failure. It was exclusive of separately billable procedures and treating other patients. Stability Stability form required: No Heart Score Heart Score: Heart Score Response (Comments) Value History Moderate Suspicious 1 EKG Normal 0 Age 45-64 1 Risk Factors >3 or Hx ASHD 2 Troponin Normal limit 0 Total 4 I personally scribed for SIMRAN LAUREANO MD ([email or web address]) on 07/03/24 at 05:27. Electronically submitted by Solomon Garcia [email or web address]). SIMRAN LAUREANO MD Jul 03, 2024 05:27
[2024-07-03 05:38] LABS: Alanine Aminotransferase 31 U/L (7-40); Albumin 3.8 g/dL (3.2-4.8); Alkaline Phosphatase 76 U/L (46-116); Anion Gap 7 (5-15); Aspartate Aminotransferase 21 U/L (13-40); BUN/Creatinine Ratio 16.5 (10.0-20.0); Blood Urea Nitrogen 20 mg/dL (9-23); Calcium 9.5 mg/dL (8.7-10.4); Carbon Dioxide 29 mmol/L (20-31); Chloride 106 mmol/L (98-107); Potassium 3.8 mmol/L (3.5-5.1); Sodium 142 mmol/L (136-145)
[2024-07-03 05:39] LABS: Total Protein 5.9 g/dL (5.7-8.2)
[2024-07-03 05:52] VITALS: PULSE 80; RESP 20; O2SAT 96
[2024-07-03 05:58] LABS: Bilirubin, Total 0.3 mg/dL (0.2-1.0); Glucose 114 mg/dL (74-106)
--- NOTE | 2024-07-03 06:10 | ECG ---
[facility] Test Date: 2024-07-03 Test Time: 04:51:52 Pat Name: XIAO HERNANDEZ Department: ER Room: Gender: M Medical Record Clerk: DEREK : 1960 Requested By: SIMRAN LAUREANO Order Number: [id number] Reading MD: Measurements Intervals [place] Rate: 79 P: 47 IN: 162 QRS: -47 QRSD: 128 T: 152 QT: 389 QTc: 447 Interpretive Statements Sinus rhythm Multiform ventricular premature complexes Nonspecific IVCD with LAD LVH with secondary repolarization abnormality Please click the below link to view image of tracing.
--- NOTE | 2024-07-03 06:34 | DVH ---
EXAM: XY CHEST PORTABLE HISTORY: chest pain COMPARISON: XY CHEST PORTABLE on DOS: 05/16/24, XY CHEST PORTABLE on DOS: 05/09/24, XY CHEST XRAY 1 VIE W on DOS: 01/31/24, XY CHEST PORTABLE on DOS: 09/13/23, XY CHEST PORTABLE on DOS: 08/02/23, chest CT date d 01/31/2024 TECHNIQUE: Portable upright AP view of the chest was performed. FINDINGS: Interstitial opacities in both lungs, greater centrally. No pneumothorax, consolidative infiltrates, or pulmonary edema. The heart is not enlarged. Left chest AICD is re-identified. Probable old right mid clavicular fracture. IMPRESSION: Central interstitial prominence may be due to reactive airways disease or CHF.
[2024-07-03] MEDS: ASPirin-EC 325mg tab PO ONE (06:40)
[2024-07-03 07:30] VITALS: PULSE 90; RESP 18; O2SAT 100
--- NOTE | 2024-07-03 09:26 | DVHHP2 ---
Admitting Diagnosis: Chest pain History of Present Illness 63 y/o male patient with history of HTN, CAD, CHF, COPD, DM presents with c/o chest pain. Patient states his AICD discharged causing him to have a sharp pain to his left chest. While in the emergency department the patient was evaluated by the provider, As per provider: Labs, vital signs, and imagining monitored. Patient will be admitted for further evaluation and treatment. I discussed admission with the patient/family and is in agreement to treatment plan. Patient Family History: Alcoholism G8 FATHER, , Cause: [place] (myocardial infarction), Onset:40s - 50 FH: arrhythmia G8 MOTHER FH: breast cancer G8 SISTER, , Cause: [place] (myocardial infarction) FH: diabetes mellitus FH: heart attack G8 FATHER, , Cause: [place] (myocardial infarction) G8 BROTHER, , Cause: [place] (myocardial infarction) Family history: Cardiovascular disease G8 FATHER, , Cause: [place] (myocardial infarction), Onset:40 - Family history: Diabetes mellitus G8 MOTHER, Onset:40 - G8 FATHER, , Cause: [place] (myocardial infarction) G8 SISTER, , Cause: [place] (myocardial infarction) Allergies: Coded Allergies: Morphine (Unverified Allergy, Unknown, 04/18/22) SEVERE BRADYCARDIA Home Meds Active Scripts Loperamide HCl (Imodium A-D) 2 Mg Cap, 4 MG PO QIDPRN, #30 CAP Prov:DAYAN MCLEAN MD 05/16/24 Levofloxacin Hemihydrate (LEVAQUIN 500 MG) 500 Mg Tab, 500 MG PO DAILY for 7 Days, #7 TAB Prov:DAYAN MCLEAN MD 05/16/24 Metronidazole (Flagyl) 500 Mg Tab, 500 MG PO TID, #20 TAB Prov:DAYAN MCLEAN MD 05/16/24 Empagliflozin (Jardiance) 10 Mg Tab, 10 MG PO DAILY for 30 Days, #30 TAB Prov:MANJULA LAN B2B ACCOUNT EXECUTIVE 05/12/24 Levothyroxine Sodium (Levothyroxine Sodium) 137 Mcg Tab, 1 TAB PO DAILY, #90 TAB 3 Refills Prov:LETY LOPES RESIDENT 02/02/24 Furosemide (Lasix) 20 Mg Tb, 1 TAB PO DAILY, #90 TAB 1 Refill Prov:EUN LI MD 09/16/23 Sacubitril-Valsartan (Entresto 24-26 mg) 1 Tab Tab, 1 TAB PO BID, #180 TAB Prov:EUN LI MD 09/16/23 Reported Medications Dapagliflozin Propanediol (Farxiga) 10 Mg Tab, 10 MG PO DAILY, TAB 09/14/23 Tamsulosin Hcl (Tamsulosin Hcl) 0.4 Mg Cap, 0.8 MG PO DAILY AFTER MEAL, MG 09/14/23 Carvedilol (Carvedilol) 6.25 Mg Tab, 1 TAB PO BIDWM, TAB 09/14/23 Losartan Potassium (Losartan Potassium) 25 Mg Tab, 1 TAB PO DAILY, #90 TAB 1 Refill 04/18/22 Venlafaxine Hcl (Venlafaxine Hcl Er) 150 Mg Cap, 1 CAP PO QAM for DEPRESSION, #30 CAP 1 Refill 12/24/17 Current Medications Current Medications Medications (Trade) Dose Ordered Sig/Manuel Route PRN Reason Start Time Stop Time Status Last Admin Temazepam (Restoril) 15 mg QHSP PRN PO FOR INSOMNIA 07/03/24 09:30 Ondansetron HCl (Zofran) 4 mg Q4HP PRN IV NAUSEA / VOMITING 07/03/24 09:30 Docusate Sodium (Colace Capsule) 100 mg BIDPRN PRN PO FOR CONSTIPATION 07/03/24 09:30 Acetaminophen (Tylenol Tablet) 650 mg Q6HP PRN PO PAIN SCALE 1-3 OR TEMP>100.4 07/03/24 09:30 07/03/24 12:45 Enoxaparin Sodium (Lovenox) 40 mg DAILY SC 07/03/24 10:00 07/03/24 10:09 Nitroglycerin (Ntrostat Sublingual) 0.4 mg Q5MINP PRN SL FOR CHEST PAIN 07/03/24 09:30 Carvedilol (Coreg Tablet) 3.125 mg Q12HR PO 07/03/24 22:00 Furosemide (Lasix Injection) 20 mg DAILY IV 07/04/24 10:00 Tamsulosin HCl (Flomax) 0.8 mg DAILY PO 07/04/24 10:00 Levothyroxine Sodium (Synthroid Tablet) 100 mcg QAM PO 07/04/24 07:00 Venlafaxine HCl (Effexor Xr) 150 mg DAILY@0900 PO 07/04/24 09:00 Levothyroxine Sodium (Synthroid Tablet) 25 mcg QAM PO 07/04/24 07:00 Review of Systems Constitutional: denies chills, denies fever, denies malaise Eyes: denies eye pain, denies vision change ENT: denies ear pain, denies headache, denies nasal congestion, denies painful swallowing, denies voice change Cardiovascular: denies edema, denies orthopnea, denies palpitations, denies paroxysmal nocturnal dyspnea Respiratory: denies cough, denies shortness of breath Gastrointestinal: denies constipation, denies diarrhea, denies nausea, denies vomiting Genitourinary: denies dysuria, denies frequent urination, denies urethral discharge Musculoskeletal: denies back pain, denies joint pain, denies muscle pain Skin: denies bruising, denies itching, denies rash Neurological: denies focal weakness, denies headache, denies sensory changes Psychiatric: denies anxiety, denies depression Endocrine: denies polydipsia, denies polyuria Hematologic/Lymphatic: denies easy bleeding, denies easy bruising, denies enlarged lymph nodes Allergic/Immunologic: denies allergy, denies hives Vital Signs Vital Signs Date Time Temp Pulse Resp B/P (MAP) Pulse Ox O2 Delivery O2 Flow Rate FiO2 07/03/24 18:39 98.3 82 18 102/72 (82) 98 98.3 07/03/24 07:30 Room Air* 0 21 Physical Exam General Appearance: alert, no distress HEENT: EOMI, PERRLA, normal external inspect of ears, no icterus, no nasal drainage Neck: no carotid bruit, no jugular venous distention (JVD), no lymphadenopathy Chest: normal thorax Respiratory: clear to auscultation, normal air movement Cardiovascular: regular rate and rhythm, no diastolic murmur, no jugular venous distention (JVD), no rub, no systolic murmur Abdominal: soft, no hepatomegaly, no mass, no splenomegaly, no tenderness Genitourinary: grossly normal external Musculoskeletal: no joint tenderness, no swelling Extremities: normal pulses, no calf tenderness, no clubbing, no cyanosis, no edema Skin: no bruising, no jaundice, no rash Neurological: alert, No focal deficit Results Labs Test 07/03/24 10:57 07/03/24 10:50 07/03/24 10:42 07/03/24 06:38 Range/Units Thyroid Stimulating Hormone (TSH) 1.11 0.55-4.78 uIU/mL Magnesium Level 1.8 1.6-2.6 mg/dL B-Type Natriuretic Peptide 977.42 0-100 pg/mL Troponin I High Sensitivity 25 </=54 ng/L Test 07/03/24 05:06 Range/Units White Blood Count 6.0 4.4-10.8 10^3/uL Red Blood Count 4.74 4.5-5.90 10^6/uL Hemoglobin 14.0 13.5-17.5 g/dL Hematocrit 43.9 41.0-53.0 % Mean Corpuscular Volume 92.6 80.0-100.0 fL Mean Corpuscular Hemoglobin 29.6 28.0-32.0 pg Mean Corpuscular Hemoglobin Concent 32.0 32.0-36.0 g/dL Red Cell Distribution Width 14.9 H 11.8-14.3 % Platelet Count 206 140-450 10^3/uL Mean Platelet Volume 8.9 6.9-10.8 fL Neutrophils (%) (Auto) 56.2 37.0-80.0 % Lymphocytes (%) (Auto) 23.7 10.0-50.0 % Monocytes (%) (Auto) 10.4 0.0-12.0 % Eosinophils (%) (Auto) 8.4 H 0.0-7.0 % Basophils (%) (Auto) 1.3 0.0-2.0 % Neutrophils # (Auto) 3.3 1.6-8.6 10 ^3/uL Lymphocytes # (Auto) 1.4 0.4-5.4 10 ^3/uL Monocytes # (Auto) 0.6 0-1.3 10 ^3/uL Eosinophils # (Auto) 0.5 0-0.8 10 ^3/uL Basophils # (Auto) 0.1 0-0.2 10 ^3/uL Nucleated Red Blood Cells 0.1 % Sodium Level 142 136-145 mmol/L Potassium Level 3.8 3.5-5.1 mmol/L Chloride Level 106 98-107 mmol/L Carbon Dioxide Level 29 20-31 mmol/L Anion Gap 7 5-15 Blood Urea Nitrogen 20 9-23 mg/dL Creatinine 1.21 0.700-1.30 mg/dL Glomerular Filtration Rate Calc 67 >90 mL/min BUN/Creatinine Ratio 16.5 10.0-20.0 Serum Glucose 114 H 74-106 mg/dL Calcium Level 9.5 8.7-10.4 mg/dL Total Bilirubin 0.3 0.2-1.0 mg/dL Aspartate Amino Transferase (AST) 21 13-40 U/L Alanine Aminotransferase (ALT) 31 7-40 U/L Alkaline Phosphatase 76 46-116 U/L Total Protein 5.9 5.7-8.2 g/dL Albumin 3.8 3.2-4.8 g/dL Plan 1. Nonischemic cardiomyopathy Monitor, cardiology consult, pacemaker interrogation, troponins 2. CAD Monitor 3. Hypothyroid Monitor, medications 4. COPD Monitor, medications 5. HLD Monitor, medications 6. Acute on chronic combined systolic and diastolic heart failure Monitor, cardiology consult, medications Plan discussed with: Patient, Other MANJULA LAN NP Jul 03, 2024 09:26
[2024-07-03] MEDS ORDERED: TEMAZEPAM 15 MG CAP PO PRN (09:30)
[2024-07-03] MEDS ORDERED: DOCUSATE SOD 100 MG CAP PO PRN (09:30)
[2024-07-03] MEDS ORDERED: ONDANSETRON HCL 4 MG/2 ML VIAL IV PRN (09:30)
[2024-07-03] MEDS ORDERED: NITROGLYCERIN 0.4 MG SL TAB SL PRN (09:30)
[2024-07-03] MEDS: ENOXAPARIN SOD 40 MG/0.4 ML SYRINGE SC SCH (10:09)
--- NOTE | 2024-07-03 10:56 | DVHINCON2 ---
Date Seen: Jul 03, 2024 Referring Physician Teresita Reason for Consultation Chest Pain, Suspected ACID discharge History of Present Illness 63-year-old male with PMH for combined systolic/diastolic HF, nonischemic cardiomyopathy (EF 30% 05/2024), multiple previous coronary angiograms with most recent in 2021 showing mild nonobstructive CAD with RCA 30% stenosis, presence of dual-chamber Biotron[employer] AICD, CKD, thyroid disease, COPD, continued tobacco use, in HLD presents to the hospital with sudden excruciating left sharp chest pain radiating to back. Patient states he was awakened around 2:00 a.m. this sudden onset, denies any loss of consciousness, lightheadedness, chest pain continued to be slightly constant afterwards. Patient states he is not sure if his device went off or not. Denies palpitations. Has been having increased shortness of breath. Of note patient is EGD MT with Coreg and Entresto though has not been able to take it as blood pressure has been marginal was told to hold meds and only take under certain parameters that have not been met. Troponin trending negative CXR showing central interstitial prominence which may be due to reactive airway disease or CHF. EKG reviewed and shows sinus rhythm at 79 beats per minute with multiform PVCs, LVH Past Medical History As above Past Surgical History As above Family History: Alcoholism G8 FATHER, , Cause: [place] (my[place] infarction), Onset:40's - 50 FH: arrhythmia G8 MOTHER FH: breast cancer G8 SISTER, , Cause: [place] (my[place] infarction) FH: diabetes mellitus FH: heart attack G8 FATHER, , Cause: [place] (my[place] infarction) G8 BROTHER, , Cause: [place] (myocardial infarction) Family history: Cardiovascular disease G8 FATHER, , Cause: [place] (myocardial infarction), Onset:40's - 50 Family history: Diabetes mellitus G8 MOTHER, Onset:40's - 50 G8 FATHER, , Cause: [place] (myocardial infarction) G8 SISTER, , Cause: [place] (myocardial infarction) Social History As history of amphetamine use though has not used in years. Continues to smoke cigarettes roughly almost half a pack a day, denies alcohol use. Allergies: Coded Allergies: Morphine (Unverified Allergy, Unknown, 04/18/22) SEVERE BRADYCARDIA Home Meds Active Scripts Loperamide HCl (Imodium A-D) 2 Mg Cap, 4 MG PO QIDPRN, #30 CAP Prov:DAYAN MCLEAN MD 05/16/24 Levofloxacin Hemihydrate (LEVAQUIN 500 MG) 500 Mg Tab, 500 MG PO DAILY for 7 Days, #7 TAB Prov:DAYAN MCLEAN MD 05/16/24 Metronidazole (Flagyl) 500 Mg Tab, 500 MG PO TID, #20 TAB Prov:DAYAN MCLEAN MD 05/16/24 Empagliflozin (Jardiance) 10 Mg Tab, 10 MG PO DAILY for 30 Days, #30 TAB Prov:MANJULA LAN CHEMICAL RECLAMATION EQUIPMENT OPERATOR 05/12/24 Levothyroxine Sodium (Levothyroxine Sodium) 137 Mcg Tab, 1 TAB PO DAILY, #90 TAB 3 Refills Prov:LETY LOPES 02/02/24 Furosemide (Lasix) 20 Mg Tb, 1 TAB PO DAILY, #90 TAB 1 Refill Prov:EUN LI MD 09/16/23 Sacubitril-Valsartan (Entresto 24-26 mg) 1 Tab Tab, 1 TAB PO BID, #180 TAB Prov:EUN LI MD 09/16/23 Reported Medications Dapagliflozin Propanediol (Farxiga) 10 Mg Tab, 10 MG PO DAILY, TAB 09/14/23 Tamsulosin Hcl (Tamsulosin Hcl) 0.4 Mg Cap, 0.8 MG PO DAILY AFTER MEAL, MG 09/14/23 Carvedilol (Carvedilol) 6.25 Mg Tab, 1 TAB PO BIDWM, TAB 09/14/23 Losartan Potassium (Losartan Potassium) 25 Mg Tab, 1 TAB PO DAILY, #90 TAB 1 Refill 04/18/22 Venlafaxine Hcl (Venlafaxine Hcl Er) 150 Mg Cap, 1 CAP PO QAM for DEPRESSION, #30 CAP 1 Refill 12/24/17 Current Medications Current Medications Medications (Trade) Dose Ordered Sig/Manuel Route PRN Reason Start Time Stop Time Status Last Admin Temazepam (Restoril) 15 mg QHSP PRN PO FOR INSOMNIA 07/03/24 09:30 Ondansetron HCl (Zofran) 4 mg Q4HP PRN IV NAUSEA / VOMITING 07/03/24 09:30 Docusate Sodium (Colace Capsule) 100 mg BIDPRN PRN PO FOR CONSTIPATION 07/03/24 09:30 Acetaminophen (Tylenol Tablet) 650 mg Q6HP PRN PO PAIN SCALE 1-3 OR TEMP>100.4 07/03/24 09:30 Enoxaparin Sodium (Lovenox) 40 mg DAILY SC 07/03/24 10:00 07/03/24 10:09 Nitroglycerin (Ntrostat Sublingual) 0.4 mg Q5MINP PRN SL FOR CHEST PAIN 07/03/24 09:30 Review of Systems Constitutional: No: Fever, Chills, Sweats, Weakness, Malaise, Other Eyes: No: Pain, Vision change, Conjunctivae inflammation, Eyelid inflammation, Other, Redness ENT: No: Ear pain, Ear discharge, Nose pain, Nose discharge, Nose congestion, Mouth pain, Mouth swelling, Throat pain, Throat swelling, Other Respiratory: No: Cough, Dry, , Wheezing, Hemoptysis, Pleuritic Pain, Sputum, Wheezing, Other positive: Shortness of breath, SOB with exertion Cardiovascular: ; No: Palpitations, Orthopnea, Paroxysmal Noc. Dyspnea, Edema, Lt Headedness, Other positive: Chest Pain Gastrointestinal: No: Nausea, Vomiting, Abdominal Pain, Diarrhea, Constipation, Melena, Hematochezia, Other Genitourinary: No Dysuria, No Frequency, No Incontinence, No Hematuria, No Retention, No Other Musculoskeletal: neck pain; No: other, shoulder pain, arm pain, back pain, hand pain, leg pain, foot pain Skin: No: Rash, Lesions, Jaundice, Bruising, Other Neurological: Other (Dizziness, headache.); No: Weakness, Numbness, Incoordination, Change in speech, Confusion, Seizures Vital Signs Vital Signs Date Time Temp Pulse Resp B/P (MAP) Pulse Ox O2 Delivery O2 Flow Rate FiO2 07/03/24 08:00 102 20 112/65 (81) 100 07/03/24 07:30 Room Air* 0 21 07/03/24 07:30 98.0 98.0 Physical Exam General appearance: Patient is well-developed, well-nourished, in no acute distress. HEENT: Exam shows: Normocephalic, atraumatic, PERRLA, EOMI Neck: Supple, no bruits Chest: Equal chest excursion bilaterally. Breath sounds normal-no rales or wheezes. Heart: Rhythm: Regular rate; no murmur or gallop Abdomen: Exam shows: Soft, nontender, nondistended Musculoskeletal: No clubbing, no cyanosis, no lower extremity edema Dermatology: Skin warm, moist. Neurological: Exam shows: Alert and oriented x4, normal speech Available prior records, labs, EKG, rhythm strips reviewed and interpreted Labs/Diagnostic Data Labs Test 07/03/24 06:38 07/03/24 05:06 Range/Units Troponin I High Sensitivity 25 </=54 ng/L White Blood Count 6.0 4.4-10.8 10^3/uL Red Blood Count 4.74 4.5-5.90 10^6/uL Hemoglobin 14.0 13.5-17.5 g/dL Hematocrit 43.9 41.0-53.0 % Mean Corpuscular Volume 92.6 80.0-100.0 fL Mean Corpuscular Hemoglobin 29.6 28.0-32.0 pg Mean Corpuscular Hemoglobin Concent 32.0 32.0-36.0 g/dL Red Cell Distribution Width 14.9 H 11.8-14.3 % Platelet Count 206 140-450 10^3/uL Mean Platelet Volume 8.9 6.9-10.8 fL Neutrophils (%) (Auto) 56.2 37.0-80.0 % Lymphocytes (%) (Auto) 23.7 10.0-50.0 % Monocytes (%) (Auto) 10.4 0.0-12.0 % Eosinophils (%) (Auto) 8.4 H 0.0-7.0 % Basophils (%) (Auto) 1.3 0.0-2.0 % Neutrophils # (Auto) 3.3 1.6-8.6 10 ^3/uL Lymphocytes # (Auto) 1.4 0.4-5.4 10 ^3/uL Monocytes # (Auto) 0.6 0-1.3 10 ^3/uL Eosinophils # (Auto) 0.5 0-0.8 10 ^3/uL Basophils # (Auto) 0.1 0-0.2 10 ^3/uL Nucleated Red Blood Cells 0.1 % Sodium Level 142 136-145 mmol/L Potassium Level 3.8 3.5-5.1 mmol/L Chloride Level 106 98-107 mmol/L Carbon Dioxide Level 29 20-31 mmol/L Anion Gap 7 5-15 Blood Urea Nitrogen 20 9-23 mg/dL Creatinine 1.21 0.700-1.30 mg/dL Glomerular Filtration Rate Calc 67 >90 mL/min BUN/Creatinine Ratio 16.5 10.0-20.0 Serum Glucose 114 H 74-106 mg/dL Calcium Level 9.5 8.7-10.4 mg/dL Total Bilirubin 0.3 0.2-1.0 mg/dL Aspartate Amino Transferase (AST) 21 13-40 U/L Alanine Aminotransferase (ALT) 31 7-40 U/L Alkaline Phosphatase 76 46-116 U/L Total Protein 5.9 5.7-8.2 g/dL Albumin 3.8 3.2-4.8 g/dL Assessment Chest Pain Presence of dual chamber AICD, Possible discharge? NICM Combined systolic and diastolic HF COPD CKD Tobacco use Plan/Recommendation * Troponin trending negative x 2, No acute ischemic changes on EKG. * Continue telemetry monitoring. Device interrogation. * Continue coreg at low dose, titrate back to home dose, hold for SBP < 100 * Monitor and replace electrolytes. Keep K>4 and MG>2. * Continue home GDMT as tolerated., continue diuresis. * Check limited ECHO Case Discussed with Dr Montalvo. Troponins negative. Follow-up device interrogation. Continue Coreg titrate as tolerated. Continue telemetry monitoring. Follow-up limited echo. Critical care, time spent: 40 minutes This medical document was created using an electronic medical record system with voice recognition software and computerized dictation system. Although this document has been carefully reviewed, there might still be some phonetic and typographical errors. Occasional wrong-word or ``sound-alike substitutions m ay have occurred due to the inherent limitations of voice recognition software. These areas are purely typographical due to imperfections of the software programs and do not reflect any compromise in the patient's medical care. Please read the chart carefully and recognize, using context, where these substitutions have occurred. Thank you for allowing me to participate in the management of this patient. The treatment plan was discussed with and agreed upon by patient/family including requesting consultants and ordering of imaging/procedures. Plan discussed with: Patient NYHA Physical activity limitations: Class2(Slight)fatigue,sob Date of Service: Jul 03, 2024 Billing Provider: GARRICK PETTY Cardiology Common Codes: [id number] INP/OBS CARE (High), [id number] CARE 30-74 MIN GARRICK PETTY Jul 03, 2024 10:56
[2024-07-03] MEDS: CARVEDILOL 3.125 MG TAB PO ONE (11:50)
[2024-07-03] MEDS: FUROSEMIDE 20 MG/2 ML VIAL IV ONE (11:50)
[2024-07-03] MEDS: ACETAMINOPHEN 325 MG TAB PO PRN (12:45)
[2024-07-03 18:00] VITALS: BP 113/74; PULSE 78; RESP 18; TEMP 97.8; O2SAT 97
[2024-07-03 18:39] VITALS: BP 102/72; PULSE 82; RESP 18; TEMP 98.3; O2SAT 98
[2024-07-03 20:00] VITALS: PULSE 87
[2024-07-03 21:00] VITALS: BP 123/82; PULSE 87; RESP 20; TEMP 98; O2SAT 97
[2024-07-03] MEDS: CARVEDILOL 3.125 MG TAB PO SCH (21:49)
[2024-07-04] VITALS (8 sets, daily range): BP systolic 89–126; BP diastolic 55–90; PULSE 65–91; RESP 17–22; TEMP 97.6–98.1; O2SAT 94–100
[2024-07-04] MEDS: clonazePAM 0.5 MG TAB PO ONE (06:28)
[2024-07-04] MEDS: LEVOTHYROXINE SODIUM 25 MCG TAB PO SCH (06:29)
[2024-07-04] MEDS: LEVOTHYROXINE SODIUM 100 MCG TAB PO SCH (06:29)
[2024-07-04 08:09] LABS: Basophils # (auto) 0.1 10 ^3/uL (0-0.2); Basophils % (auto) 1.8 % (0.0-2.0); Eosinophils # (auto) 0.5 10 ^3/uL (0-0.8); Eosinophils % (auto) 7.2 % (0.0-7.0); Hematocrit 47.3 % (41.0-53.0); Hemoglobin 15.6 g/dL (13.5-17.5); Lymphocytes # (auto) 1.4 10 ^3/uL (0.4-5.4); Lymphocytes % (auto) 21.1 % (10.0-50.0); Mean Corpuscular Hemoglobin 30.2 pg (28.0-32.0); Mean Corpuscular Volume 91.7 fL (80.0-100.0); Monocytes # (auto) 0.6 10 ^3/uL (0-1.3); Monocytes % (auto) 8.7 % (0.0-12.0); Neutrophils # (auto) 4.2 10 ^3/uL (1.6-8.6); Neutrophils % (auto) 61.2 % (37.0-80.0); Nucleated Red Blood Cells % 0.1 %; Platelet Count (auto) 220 10^3/uL (140-450); Red Blood Cells 5.16 10^6/uL (4.5-5.90); Red Cell Distribution Width 14.8 % (11.8-14.3); White Blood Cell 6.9 10^3/uL (4.4-10.8)
[2024-07-04 08:14] LABS: Alkaline Phosphatase 74 U/L (46-116); Anion Gap 6 (5-15); Calcium 10.2 mg/dL (8.7-10.4); Carbon Dioxide 31 mmol/L (20-31); Chloride 104 mmol/L (98-107); Potassium 4.4 mmol/L (3.5-5.1); Sodium 141 mmol/L (136-145)
[2024-07-04 08:15] LABS: BUN/Creatinine Ratio 19.3 (10.0-20.0)
[2024-07-04 08:16] LABS: Albumin 4.3 g/dL (3.2-4.8)
[2024-07-04 08:17] LABS: Bilirubin, Total 0.4 mg/dL (0.2-1.0); Total Protein 6.6 g/dL (5.7-8.2)
[2024-07-04 08:18] LABS: Glucose 91 mg/dL (74-106)
[2024-07-04 08:20] LABS: Alanine Aminotransferase 53 U/L (7-40); Blood Urea Nitrogen 26 mg/dL (9-23)
[2024-07-04 08:30] LABS: Aspartate Aminotransferase 46 U/L (13-40)
[2024-07-04] MEDS: VENLAFAXINE HCL 37.5mg XR cap PO SCH (09:29)
[2024-07-04] MEDS: TAMSULOSIN HYDROCHLORIDE 0.4 MG CAP PO SCH (09:29)
[2024-07-04] MEDS: clonazePAM 0.5 MG TAB PO SCH (09:29)
[2024-07-04] MEDS: FUROSEMIDE 20 MG/2 ML VIAL IV SCH (09:30)
--- NOTE | 2024-07-04 12:22 | DVHPN2 ---
Progress Note - Dictate Date Seen: Jul 04, 2024 Medical Necessity Reason Pt with a Central, PICC or Fol: No vital signs Vital Sign Date Time Temp Pulse Resp B/P (MAP) Pulse Ox O2 Delivery O2 Flow Rate FiO2 07/04/24 10:30 78 106/73 07/04/24 09:00 98.0 18 97 98.0 07/04/24 08:00 Room Air* 0 21 Total Intake and Output 07/03/24 07/03/24 07/04/24 15:00 23:00 07:00 Intake Total 1480 ml Balance 1480 ml medications Current Medications Medications Dose Ordered Sig/Manuel Route Start Time Stop Time Status Last Admin Dose Admin Temazepam 15 mg QHSP PRN PO 07/03/24 09:30 Ondansetron HCl 4 mg Q4HP PRN IV 07/03/24 09:30 Docusate Sodium 100 mg BIDPRN PRN PO 07/03/24 09:30 Acetaminophen 650 mg Q6HP PRN PO 07/03/24 09:30 07/03/24 21:34 650 MG Enoxaparin Sodium 40 mg DAILY SC 07/03/24 10:00 07/03/24 10:09 40 MG Nitroglycerin 0.4 mg Q5MINP PRN SL 07/03/24 09:30 Carvedilol 3.125 mg Q12HR PO 07/03/24 22:00 07/04/24 09:30 3.125 MG Furosemide 20 mg DAILY IV 07/04/24 10:00 07/04/24 09:30 20 MG Tamsulosin HCl 0.8 mg DAILY PO 07/04/24 10:00 07/04/24 09:29 0.8 MG Levothyroxine Sodium 100 mcg QAM PO 07/04/24 07:00 07/04/24 06:29 100 MCG Venlafaxine HCl 150 mg DAILY@0900 PO 07/04/24 09:00 07/04/24 09:29 150 MG Levothyroxine Sodium 25 mcg QAM PO 07/04/24 07:00 07/04/24 06:29 25 MCG Clonazepam 0.5 mg BID PO 07/04/24 10:00 07/04/24 09:29 0.5 MG objective General Appearance: alert, no distress HEENT: EOMI, PERRLA, normal external inspect of ears, no icterus, no nasal drainage Neck: no carotid bruit, no jugular venous distention (JVD), no lymphadenopathy Chest: normal thorax Respiratory: clear to auscultation, normal air movement Cardiovascular: regular rate and rhythm, no diastolic murmur, no jugular venous distention (JVD), no rub, no systolic murmur Abdominal: soft, no hepatomegaly, no mass, no splenomegaly, no tenderness Genitourinary: grossly normal external Musculoskeletal: no joint tenderness, no swelling Extremities: normal pulses, no calf tenderness, no clubbing, no cyanosis, no edema Skin: no bruising, no jaundice, no rash Neurological: alert, No focal deficit laboratory and microbiology Laboratory Tests 07/04/24 06:51 Test 07/04/24 06:51 Range/Units Serum Glucose 91 74-106 mg/dL Problem List 1. Nonischemic cardiomyopathy Monitor, cardiology consult, pacemaker interrogation, troponins 2. CAD Monitor 3. Hypothyroid Monitor, medications 4. COPD Monitor, medications 5. HLD Monitor, medications 6. Acute on chronic combined systolic and diastolic heart failure Monitor, cardiology consult, medications Assessment/Plan Subjective: Patient is awake and alert. Objective: Patient states he was seen by cardiology today. Patient apparently has been having some arrhythmias. Medications were treated by cardiology. Plan: Monitor EKG. Pacemaker interrogation pending. Continue diuretics for CHF exacerbation. Plan discussed with: Patient, Other MANJULA LAN NP Jul 04, 2024 12:22
--- NOTE | 2024-07-04 14:30 | DVHPN2 ---
Progress Note Date Seen: Jul 04, 2024 Medical Necessity Reason Pt with a Central, PICC or Fol: No Subjective Patient reports: Feels better Other Systems: device check didnt show VT shocks or major arrhythmias tele stable PVCs on ecg Objective vital signs Vital Sign Date Time Temp Pulse Resp B/P (MAP) Pulse Ox O2 Delivery O2 Flow Rate FiO2 07/04/24 10:30 78 106/73 07/04/24 09:00 98.0 18 97 98.0 07/04/24 08:00 Room Air* 0 21 Total Intake and Output 07/03/24 07/03/24 07/04/24 15:00 23:00 07:00 Intake Total 1480 ml Balance 1480 ml medications Current Medications Medications Dose Ordered Sig/Manuel Route Start Time Stop Time Status Last Admin Dose Admin Temazepam 15 mg QHSP PRN PO 07/03/24 09:30 Ondansetron HCl 4 mg Q4HP PRN IV 07/03/24 09:30 Docusate Sodium 100 mg BIDPRN PRN PO 07/03/24 09:30 Acetaminophen 650 mg Q6HP PRN PO 07/03/24 09:30 07/03/24 21:34 650 MG Enoxaparin Sodium 40 mg DAILY SC 07/03/24 10:00 07/03/24 10:09 40 MG Nitroglycerin 0.4 mg Q5MINP PRN SL 07/03/24 09:30 Carvedilol 3.125 mg Q12HR PO 07/03/24 22:00 07/04/24 09:30 3.125 MG Furosemide 20 mg DAILY IV 07/04/24 10:00 07/04/24 09:30 20 MG Tamsulosin HCl 0.8 mg DAILY PO 07/04/24 10:00 07/04/24 09:29 0.8 MG Levothyroxine Sodium 100 mcg QAM PO 07/04/24 07:00 07/04/24 06:29 100 MCG Venlafaxine HCl 150 mg DAILY@0900 PO 07/04/24 09:00 07/04/24 09:29 150 MG Levothyroxine Sodium 25 mcg QAM PO 07/04/24 07:00 07/04/24 06:29 25 MCG Clonazepam 0.5 mg BID PO 07/04/24 10:00 07/04/24 09:29 0.5 MG Examination: GENERAL:Abnormal, HEENT:Abnormal, LUNGS:Abnormal, CVS:Abnormal, ABDOMEN:Abnormal laboratory and microbiology Laboratory Tests 07/04/24 06:51 Test 07/04/24 06:51 Range/Units Serum Glucose 91 74-106 mg/dL Problem List/Assessment/Plan Problem List/Assessment/Plan NICM PVCs hx of ICD obesity HTN HL cont BB no ICD shock noted with device check per [employer], results not printed out for me increase coreg to 6.25 mg po bid cont iv lasix bnp elevated NYHA class III hf Plan discussed with: Patient Date of Service: Jul 04, 2024 Billing Provider: DEREK SERRANO MD Common Visit Codes: NOT BILLABLE DEREK SERRANO MD Jul 04, 2024 14:30
[2024-07-05 01:00] VITALS: BP 103/71; PULSE 86; RESP 17; TEMP 98.1; O2SAT 95
[2024-07-05 05:00] VITALS: BP 100/63; PULSE 84; RESP 17; TEMP 98; O2SAT 96
--- NOTE | 2024-07-05 06:59 | DVHPN2 ---
Progress Note Date Seen: Jul 05, 2024 Medical Necessity Reason Pt with a Central, PICC or Fol: No Objective vital signs Vital Sign Date Time Temp Pulse Resp B/P (MAP) Pulse Ox O2 Delivery O2 Flow Rate FiO2 07/05/24 05:00 98.0 84 17 100/63 (75) 96 98.0 07/04/24 20:00 Room Air* 0 21 Total Intake and Output 07/04/24 07/04/24 07/05/24 14:59 22:59 06:59 Intake Total 980 ml 800 ml Balance 980 ml 800 ml medications Current Medications Medications Dose Ordered Sig/Manuel Route Start Time Stop Time Status Last Admin Dose Admin Temazepam 15 mg QHSP PRN PO 07/03/24 09:30 Ondansetron HCl 4 mg Q4HP PRN IV 07/03/24 09:30 Docusate Sodium 100 mg BIDPRN PRN PO 07/03/24 09:30 Acetaminophen 650 mg Q6HP PRN PO 07/03/24 09:30 07/03/24 21:34 650 MG Enoxaparin Sodium 40 mg DAILY SC 07/03/24 10:00 07/03/24 10:09 40 MG Nitroglycerin 0.4 mg Q5MINP PRN SL 07/03/24 09:30 Carvedilol 3.125 mg Q12HR PO 07/03/24 22:00 07/04/24 09:30 3.125 MG Furosemide 20 mg DAILY IV 07/04/24 10:00 07/04/24 09:30 20 MG Tamsulosin HCl 0.8 mg DAILY PO 07/04/24 10:00 07/04/24 09:29 0.8 MG Levothyroxine Sodium 100 mcg QAM PO 07/04/24 07:00 07/05/24 05:46 100 MCG Venlafaxine HCl 150 mg DAILY@0900 PO 07/04/24 09:00 07/04/24 09:29 150 MG Levothyroxine Sodium 25 mcg QAM PO 07/04/24 07:00 07/05/24 05:45 25 MCG Clonazepam 0.5 mg BID PO 07/04/24 10:00 07/04/24 09:29 0.5 MG Examination: GENERAL:Abnormal, HEENT:Abnormal, LUNGS:Abnormal, CVS:Abnormal, MSK:Normal laboratory and microbiology Laboratory Tests 07/04/24 06:51 Test 07/04/24 06:51 Range/Units Serum Glucose 91 74-106 mg/dL Problem List/Assessment/Plan Problem List/Assessment/Plan NICM PVCs hx of ICD obesity HTN HL cont BB no ICD shock noted with device check per Neitui, results not printed out for me increase coreg to 6.25 mg po bid cont iv lasix bnp elevated NYHA class III hf dc home when medically stable Plan discussed with: Patient Date of Service: Jul 05, 2024 Billing Provider: DEREK SERRANO MD Common Visit Codes: NOT BILLABLE DEREK SERRANO MD Jul 05, 2024 06:59
[2024-07-05 08:00] VITALS: PULSE 90
[2024-07-05 09:00] VITALS: BP 119/69; PULSE 93; RESP 18; TEMP 97.8; O2SAT 95
[2024-07-05 13:00] VITALS: BP 89/53; PULSE 74; RESP 19; TEMP 98.3; O2SAT 95
[2024-07-05] MEDS ORDERED: CARV-214 PO (16:28)
--- NOTE | 2024-07-05 16:30 | DVHDS2 ---
Discharge Summary Date of Admission Jul 03, 2024 at 09:21 Date of Discharge: Jul 05, 2024 Labs/Diagnostic Data: Laboratory Results Test 07/04/24 06:51 07/03/24 10:57 07/03/24 10:50 07/03/24 10:42 White Blood Count 6.9 10^3/uL (4.4-10.8) Red Blood Count 5.16 10^6/uL (4.5-5.90) Hemoglobin 15.6 g/dL (13.5-17.5) Hematocrit 47.3 % (41.0-53.0) Mean Corpuscular Volume 91.7 fL (80.0-100.0) Mean Corpuscular Hemoglobin 30.2 pg (28.0-32.0) Mean Corpuscular Hemoglobin Concent 33.0 g/dL (32.0-36.0) Red Cell Distribution Width 14.8 % (11.8-14.3) Platelet Count 220 10^3/uL (140-450) Mean Platelet Volume 9.4 fL (6.9-10.8) Neutrophils (%) (Auto) 61.2 % (37.0-80.0) Lymphocytes (%) (Auto) 21.1 % (10.0-50.0) Monocytes (%) (Auto) 8.7 % (0.0-12.0) Eosinophils (%) (Auto) 7.2 % (0.0-7.0) Basophils (%) (Auto) 1.8 % (0.0-2.0) Neutrophils # (Auto) 4.2 10 ^3/uL (1.6-8.6) Lymphocytes # (Auto) 1.4 10 ^3/uL (0.4-5.4) Monocytes # (Auto) 0.6 10 ^3/uL (0-1.3) Eosinophils # (Auto) 0.5 10 ^3/uL (0-0.8) Basophils # (Auto) 0.1 10 ^3/uL (0-0.2) Nucleated Red Blood Cells 0.1 % Sodium Level 141 mmol/L (136-145) Potassium Level 4.4 mmol/L (3.5-5.1) Chloride Level 104 mmol/L (98-107) Carbon Dioxide Level 31 mmol/L (20-31) Anion Gap 6 (5-15) Blood Urea Nitrogen 26 mg/dL (9-23) Creatinine 1.35 mg/dL (0.700-1.30) Glomerular Filtration Rate Calc 59 mL/min (>90) BUN/Creatinine Ratio 19.3 (10.0-20.0) Serum Glucose 91 mg/dL (74-106) Calcium Level 10.2 mg/dL (8.7-10.4) Total Bilirubin 0.4 mg/dL (0.2-1.0) Aspartate Amino Transferase (AST) 46 U/L (13-40) Alanine Aminotransferase (ALT) 53 U/L (7-40) Alkaline Phosphatase 74 U/L (46-116) Total Protein 6.6 g/dL (5.7-8.2) Albumin 4.3 g/dL (3.2-4.8) Thyroid Stimulating Hormone (TSH) 1.11 uIU/mL (0.55-4.78) Free Thyroxine (T4) Calculated 1.38 ng/dL (0.89-1.76) Magnesium Level 1.8 mg/dL (1.6-2.6) B-Type Natriuretic Peptide 977.42 pg/mL (0-100) Test 07/03/24 06:38 Troponin I High Sensitivity 25 ng/L (</=54) Other Laboratory Tests 07/04/24 06:51 Brief Hx & Hospital Course: 63 y/o male patient with history of HTN, CAD, CHF, COPD, DM presents with c/o chest pain. Patient states his AICD discharged causing him to have a sharp pain to his left chest. While in the emergency department the patient was evaluated by the provider, As per provider: Labs, vital signs, and imagining monitored. Patient was admitted on July 03, 2024, for a possible AICD discharge. Patient was seen and evaluated by cardiology. Pacemaker was interrogated, and no ICD shock was noted. Correct dose was adjusted. Patient had a softer blood pressure. Patient was cleared for discharge by cardiology. Patient will follow up with PCP in one week and with cardiology in 12 weeks. The patient received proper medical treatment and medications. Vital signs, Imaging and Laboratory Work was monitored. All consults recommendations were followed as provided. There were no complaints or new complaints upon discharge, all questions and concerns were answered. Patient was advised to return to the ER or call 911 if any headaches, dizziness, shortness of breath, chest pain, bleeding, fevers, or worsening of medical condition. Patient/Family was counseled about treatment plan, medications, possible side effects, patientverbalized understanding. All questions were answered to the best of my ability. The patient symptoms improved and they are okay to be DC. Condition at Discharge: Good Final Diagnosis/Problems List Nonischemic cardiomyopathy CAD Hypothyroid COPD HLD Acute on chronic combined systolic and diastolic heart failure Discharge Disposition: Home Discharge Instruct/Medications Diet: Cardiac 2g Na,low cholest Activity: No Restrictions, As Tolerated Follow Up/Referral: PCP 1 WEEK CARDIOLOGY 2 WEEKS Discharge Statement: "Patient was advised to return to the ER or call 911 if any headaches, dizziness, shortness of breath, chest pain, abdominal pain, bleeding, fevers, or worsening of medical condition. Patient was counseled about treatment plan, medications, possible side effects, patientverbalized understanding. All questions were answered to the best of my ability. This discharge took greater then 30 minutes in planning, reviewing documentation, counseling the patient, and discussing with other team members." ASSESSMENT ASSESSMENT Assessment PALPITATIONS AICD SHOCK RULED OUT NONISCHEMIC CARDIOMYOPATHY MANJULA LAN NP Jul 05, 2024 16:30
[2024-07-05 17:00] VITALS: BP 99/66; PULSE 73; RESP 19; TEMP 98.1; O2SAT 95
== END 2024-07-05 18:45 | disposition home or self-care (01) | DRG 194 ==
LOC: ER 04:49 → EDUNIT# 04:49 → EDBD 04:49 → OVERFLOW 09:21 → TELE-CENTR 18:01
PROVIDERS: ADMIT Nurse Practitioner; ATTEND Nurse Practitioner
PROC: 4B02XSZ Measurement of Cardiac Pacemaker, External Approach (ICD-10-PCS; principal; 2024-07-05)
DX: I13.0 Hypertensive heart and chronic kidney disease with heart failure and stage 1 through stage 4 chronic kidney disease, or unspecified chronic kidney disease (principal); I42.8 Other cardiomyopathies; E11.22 Type 2 diabetes mellitus with diabetic chronic kidney disease; I50.43 Acute on chronic combined systolic (congestive) and diastolic (congestive) heart failure; N18.9 Chronic kidney disease, unspecified; E03.9 Hypothyroidism, unspecified; J44.9 Chronic obstructive pulmonary disease, unspecified; E66.9 Obesity, unspecified; Z68.28 Body mass index [BMI] 28.0-28.9, adult; F17.210 Nicotine dependence, cigarettes, uncomplicated; E78.5 Hyperlipidemia, unspecified; K21.9 Gastro-esophageal reflux disease without esophagitis; F32.A Depression, unspecified; I25.10 Atherosclerotic heart disease of native coronary artery without angina pectoris; I49.3 Ventricular premature depolarization; Z95.810 Presence of automatic (implantable) cardiac defibrillator; Z83.3 Family history of diabetes mellitus; Z82.49 Family history of ischemic heart disease and other diseases of the circulatory system; Z80.3 Family history of malignant neoplasm of breast; Z79.899 Other long term (current) drug therapy; Z88.5 Allergy status to narcotic agent
CPT/HCPCS: 36415; 71045; 80053; 83735; 83880; 84439; 84443; 84484; 85025; 93005; 99291; G0378

== ENCOUNTER 2024-07-09 16:37 | Inpatient (IN) | payer MEDICAID ==
[~2024-07-09] VITALS: Ht 172.7 cm; Wt 87.9 kg
[2024-07-09 04:14] VITALS: PULSE 93
[~2024-07-09 16:37] MED LIST changes: +CARV-214 PO; -CARV6.2551 PO; -EMPA1TAB PO; -LEVO137T3 PO; -LEVO500T91 PO; -LOPE7.5C PO; -METR-344 PO; -VENL150C58 PO
--- NOTE | 2024-07-09 17:30 | DVH ---
EXAM: XY CHEST PORTABLE TECHNIQUE: Single frontal chest radiograph CLINICAL HISTORY: n/v COMPARISON: XY CHEST PORTABLE on DOS: 07/03/24, XY CHEST PORTABLE on DOS: 05/16/24, XY CHEST PORTABLE on DOS: 05/09/24 Findings/Impression: Frontal chest radiograph demonstrates no acute osseous or superficial soft tissue abnormalities. Left chest wall ICD. The trachea is midline. Borderline cardiomegaly with pulmonary vascular congestion. No pneumothorax, pleural effusions, or consolidations.
--- NOTE | 2024-07-09 17:35 | ED.PDOC ---
GI ASSESSMENT HPI Comments 63Y M with PMHx CHF, CKD, COPD, thyroid disease and ICD placement presents to ED via EMS for chief complaint n/v/d since 0100 today with lower abd pain, SOB, and chest pain. Pt denies fever and urinary symptoms. Pt denies recent sick contact. Pt states he was given Zofran by EMS and felt better. Pt was last discharged fr [facility] on 07/05/2024. No other symptoms reported. Chief Complaint: Flu like Time Seen by MD: 17:05 Primary Care Provider: haily Reviewed Notes: Nurses Notes, Medications, Allergies Allergies: Coded Allergies: Morphine (Unverified Allergy, Unknown, 04/18/22) SEVERE BRADYCARDIA Home Meds Active Scripts Carvedilol (COREG) 3.125 Mg Tab, 3.125 MG PO Q12HR for 30 Days, #60 TAB Prov:MANJULA LAN WHOLESALER 07/05/24 Furosemide (Lasix) 20 Mg Tb, 1 TAB PO DAILY, #90 TAB 1 Refill Prov:EUN LI MD 09/16/23 Sacubitril-Valsartan (Entresto 24-26 mg) 1 Tab Tab, 1 TAB PO BID, #180 TAB Prov:EUN LI MD 09/16/23 Reported Medications Clonazepam (Clonazepam) 0.5 Mg Tab, 1 TAB PO BID for 30 Days, #60 07/04/24 Levothyroxine Sodium (Levothyroxine Sodium) 125 Mcg Tab, 1 TAB PO DAILY for 60 Days, #60 07/04/24 Venlafaxine Hcl (Venlafaxine Hcl Er) 150 Mg Tab, 1 TAB PO DAILY for 30 Days, #30 07/04/24 Dapagliflozin Propanediol (Farxiga) 10 Mg Tab, 1 TAB PO DAILY for 30 Days, #30 09/14/23 Tamsulosin Hcl (Tamsulosin Hcl) 0.4 Mg Cap, 0.8 MG PO DAILY AFTER MEAL, MG 09/14/23 Losartan Potassium (Losartan Potassium) 25 Mg Tab, 1 TAB PO DAILY, #90 TAB 1 Refill 04/18/22 Discontinued Reported Medications Carvedilol (Carvedilol) 6.25 Mg Tab, 1 TAB PO BIDWM, TAB 09/14/23 Information Source: Patient, Emergency Med Personnel Mode of Arrival: EMS Timing: Hours Duration: Since onset Prehospital treatment: Other (zofran) Quality: Aching Vomitus: Watery Stool: Loose, Watery Severity: Mild Recent: None Recent Hx of: None Pain Location: RLQ, LLQ Modifying Factors: Nothing Associated sign and symptoms: Nausea, Vomiting, Diarrhea, Abdominal Pain, Other Past Medical History PAST MEDICAL HISTORY: Anxiety, CAD, CHF, CKF, COPD, Depression, DM, GERD, High Lipids, HTN, [place], Thyroid Surgical History: Pacemaker Family History Family History: Family hx of DM, Family hx of Cancer, Family hx of heart herve, Family hx of HTN Social History Smoker: Cigarettes, Less Than 1 Pack/Day Alcohol: Denies ETOH Use Drugs: Denies Drug Use Lives In: Home Constitutional: denies: chills, diaphoresis, fatigue, fever, malaise, sweats, weakness, others EENTM: denies: blurred vision, double vision, ear bleeding, ear discharge, ear drainage, ear pain, ear ringing, eye pain, eye redness, hearing loss, mouth pain, mouth swelling, nasal discharge, nose bleeding, nose congestion, nose pain, photophobia, tearing, throat pain, throat swelling, voice changes, others Respiratory: reports: shortness of breath; denies: cough, hemoptysis, orthopnea, SOB at rest, SOB with excertion, stridor, wheezing, others Cardiovascular: reports: chest pain; denies: dizzy spells, diaphoresis, Dyspnea on exertion, edema, irregular heart beat, left arm pain, lightheadedness, palpitations, PND, syncope, others Gastrointestinal: reports: abdominal pain, diarrhea, nausea, vomiting; denies: abdomen distended, blood streaked bowels, constipated, dysphagia, difficulty swallowing, hematemesis, melena, poor appetite, poor fluid intake, rectal bleeding, rectal pain, others Genitourinary: denies: burning, dysuria, flank pain, frequency, hematuria, incontinence, penile discharge, penile sore, pain, testicle pain, testicle swelling, urgency, others Neurological: denies: dizziness, fainting, headache, left sided numbness, left sided weakness, numbness, paresthesia, pre-existing deficit, right sided numbness, right sided weakness, seizure, speech problems, tingling, tremors, weakness, others Musculoskeletal: denies: back pain, gout, joint pain, joint swelling, muscle pain, muscle stiffness, neck pain, others Integumetry: denies: bruises, change in color, change in hair/nails, dryness, laceration, lesions, lumps, rash, wounds, others Allergic/Immunocompromised: denies: Difficulty Healing, Frequent Infections, Hives, Itching, others Hematologic/Lymphatic: denies: anemia, blood clots, easy bleeding, easy bruising, swollen glands, others Endocrine: denies: excessive hunger, excessive sweating, excessive thirst, excessive urination, flushing, intolerance to cold, intolerance to heat, unexplained weight gain, unexplained weight loss, others Psychiatric: denies: anxiety, bipolar disorder, depression, hopeless, panic disorder, schizophrenia, sleepless, suicidal, others All Other Systems: Reviewed and Negative Physical Exam General Appearance: Mild Distress HEENT: Other (Pupils symmetric, moist mucous membranes) Neck: Full Range of Motion, Normal Inspection Respiratory: Decreased Breath Sounds, No Accessory Muscle Use, No Respiratory Distress Cardiovascular: No Edema, No JVD, Regular Rate/Rhythm Breast Exam: Deferred Gastrointestinal: Soft, Suprapubic, Tenderness Genitalia: Deferred Pelvic: Deferred Rectal: Deferred Extremities: Normal inspection, Normal range of motion, Non-tender, No pedal edema Neurologic: Alert (Oriented x4), Normal Affect, Normal Mood, Other (Ambulatory without difficulty. No gross focal deficit.) Cerebellar Function: NOT DONE Reflexes: NOT DONE Skin: Dry, Normal Color, Warm Lymphatic: NOT DONE Was a procedure done? Was a procedure done?: No GI differential Dx Differential Diagnosis: Diverticular disease, Gastritis/PUD, Gastroenteritis, UTI, Urolithiasis, Dehydration, Electrolyte Imbalance, Bacterial, Viral Other Differential Diagnosis colitis, pna, copd, asthma, bronchitis , CHF, [place] among others X-Ray, Labs, Meds, VS Vital Signs Date Time Temp Pulse Resp B/P (MAP) Pulse Ox O2 Delivery O2 Flow Rate FiO2 07/09/24 17:09 96.9 99 16 133/90 (104) 96 Lab Test 07/09/24 18:04 Range/Units White Blood Count 7.9 4.4-10.8 10^3/uL Red Blood Count 5.07 4.5-5.90 10^6/uL Hemoglobin 15.1 13.5-17.5 g/dL Hematocrit 46.6 41.0-53.0 % Mean Corpuscular Volume 91.9 80.0-100.0 fL Mean Corpuscular Hemoglobin 29.7 28.0-32.0 pg Mean Corpuscular Hemoglobin Concent 32.3 32.0-36.0 g/dL Red Cell Distribution Width 14.6 H 11.8-14.3 % Platelet Count 230 140-450 10^3/uL Mean Platelet Volume 8.9 6.9-10.8 fL Neutrophils (%) (Auto) 63.6 37.0-80.0 % Lymphocytes (%) (Auto) 19.2 10.0-50.0 % Monocytes (%) (Auto) 10.5 0.0-12.0 % Eosinophils (%) (Auto) 6.2 0.0-7.0 % Basophils (%) (Auto) 0.5 0.0-2.0 % Neutrophils # (Auto) 5.0 1.6-8.6 10 ^3/uL Lymphocytes # (Auto) 1.5 0.4-5.4 10 ^3/uL Monocytes # (Auto) 0.8 0-1.3 10 ^3/uL Eosinophils # (Auto) 0.5 0-0.8 10 ^3/uL Basophils # (Auto) 0 0-0.2 10 ^3/uL Nucleated Red Blood Cells 0.0 % Sodium Level 144 136-145 mmol/L Potassium Level 4.9 3.5-5.1 mmol/L Chloride Level 107 98-107 mmol/L Carbon Dioxide Level 26 20-31 mmol/L Anion Gap 11 5-15 Blood Urea Nitrogen 29 H 9-23 mg/dL Creatinine 1.45 H 0.700-1.30 mg/dL Glomerular Filtration Rate Calc 54 >90 mL/min BUN/Creatinine Ratio 20.0 10.0-20.0 Serum Glucose 94 74-106 mg/dL Lactic Acid Level 1.2 0.4-2.0 mmol/L Calcium Level 10.4 8.7-10.4 mg/dL Total Bilirubin 0.3 0.2-1.0 mg/dL Aspartate Amino Transferase (AST) 152 H 13-40 U/L Alanine Aminotransferase (ALT) 185 H 7-40 U/L Alkaline Phosphatase 94 46-116 U/L Troponin I High Sensitivity 37 </=54 ng/L B-Type Natriuretic Peptide 1918.74 0-100 pg/mL Total Protein 7.0 5.7-8.2 g/dL Albumin 4.7 3.2-4.8 g/dL Lipase 38 12-53 U/L ORDERING PHYSICIAN: DAMIAN SHANNON MD PROCEDURE(s): CXRP - CHEST PORTABLE REASON: n/v ORDER NUMBER(s): [id number], ACCESSION NUMBER(s): [id number] EXAM: XY CHEST PORTABLE TECHNIQUE: Single frontal chest radiograph CLINICAL HISTORY: n/v COMPARISON: XY CHEST PORTABLE on DOS: 07/03/24, XY CHEST PORTABLE on DOS: 05/16/24, XY CHEST PORTABLE on DOS: 05/09/24 Findings/Impression: Frontal chest radiograph demonstrates no acute osseous or superficial soft tissue abnormalities. Left chest wall ICD. The trachea is midline. Borderline cardiomegaly with pulmonary vascular congestion. No pneumothorax, pleural effusions, or consolidations. RING PHYSICIAN: DAMIAN SHANNON MD PROCEDURE(s): ABPL - CT AB PEL WO CON-NO ORAL OR IV REASON: low abd pain n/v/d ORDER NUMBER(s): [id number], ACCESSION NUMBER(s): [id number] Exam: CT CT AB PEL WO CON-NO ORAL OR IV History: low abd pain n/v/d Comparison Study: CT CT AB PEL WO CON-NO ORAL OR IV on DOS: 05/16/24, CT CT AB PEL WO CON-NO ORAL OR IV on DOS: 01/31/24 TECHNIQUE: Multidetector CT of the abdomen and pelvis was performed from lung bases to pubic symphysis. Imaging was performed without IV contrast. Axial, coronal, and sagittal multiplanar reformats were obtained from the axial data set by the technologist. RADIATION DOSE: DLP 667.59 mGy.cm; CTDI vol 12.76 mGy. Findings: Lungs: The lung bases are clear. Heart: No cardiomegaly or pericardial effusion. Liver: Unremarkable. Gallbladder: Unremarkable. Spleen: Unremarkable Pancreas: Unremarkable Adrenals: Unremarkable Kidneys: Unremarkable GI tract: Unremarkable : Unremarkable. Vasculature: Mild aortoiliac atherosclerosis. Lymphadenopathy: Absent Peritoneum: No ascites Musculoskeletal: Mild multilevel degenerative changes of the thoracolumbar spine. Soft tissues: Unremarkable Impression: 1. No acute abdominopelvic abnormalities. X-Ray, Labs, Meds, VS Comment 63Y M with PMHx CHF, CKD, COPD, thyroid disease and ICD placement presents to ED via EMS for chief complaint n/v/d since 0100 today with lower abd pain, SOB, and chest pain. Vitals unremarkable Exam remarkable for diminished breath sounds and suprapubic tenderness to palpation Rhythm strip independently interpreted by me: Sinus rhythm, rate 99, no ectopy. Chest x-ray Findings/Impression: Frontal chest radiograph demonstrates no acute osseous or superficial soft tissue abnormalities. Left chest wall ICD. The trachea is midline. Borderline cardiomegaly with pulmonary vascular congestion. No pneumothorax, pleural effusions, or consolidations. CT abdomen and pelvis Impression: 1. No acute abdominopelvic abnormalities. CBC unremarkable, metabolic panel remarkable for BUN 29, creatinine 1.45, AST 152, ALT 185, BNP elevated at 1918.74, troponin negative, lactate normal Patient treated with the following in the ED: Lasix 40 mg IV, Nitro-Bid 1/2 inch to chest wall, morphine 4 mg IV On re-evaluation, patient is not vomiting and vitals are stable. He denies any abdominal pain. Plan is to admit the patient for diuresis and Cardiology evaluation. Time of 1ST Reevaluation: 17:35 Reevaluation 1ST: Unchanged Patient Education/Counseling: Diagnosis, Treatment Family Education/Counseling: No Family Present Departure 1 Departure Time of Disposition: 19:18 Impression: Primary Impression: CHF exacerbation Qualified Codes: I50.9 - Heart failure, unspecified Additional Impressions: Chest pain with high risk of acute coronary syndrome Abdominal pain Qualified Codes: R10.30 - Lower abdominal pain, unspecified Vomiting and diarrhea Disposition: ADMITTED INPATIENT Admit to: [facility] Condition: Guarded Critical Care Note Critical Care Time?: No Stability Stability form required: No Heart Score Heart Score: Heart Score Response (Comments) Value History Slightly Suspicious 0 EKG Repolarization Disturb 1 Age 45-64 1 Risk Factors >3 or Hx ASHD 2 Troponin Normal limit 0 Total 4 I personally scribed for DAMIAN SHANNON MD ([email or web address]) on 07/09/24 at 17:35. Electronically submitted by Natalie Castelan ([facility]). I personally scribed for DAMIAN SHANNON MD ([email or web address]) on 07/09/24 at 17:36. Electronically submitted by Natalie Castelan ([facility]). I personally scribed for DAMIAN SHANNON MD ([email or web address]) on 07/09/24 at 19:21. Electronically submitted by Natalie Castelan ([facility]). DAMIAN SHANNON MD Jul 09, 2024 17:35
--- NOTE | 2024-07-09 18:26 | DVH ---
Exam: CT CT AB PEL WO CON-NO ORAL OR IV History: low abd pain n/v/d Comparison Study: CT CT AB PEL WO CON-NO ORAL OR IV on DOS: 05/16/24, CT CT AB PEL WO CON-NO ORAL OR IV on DOS: 01/31/24 TECHNIQUE: Multidetector CT of the abdomen and pelvis was performed from lung bases to pubic symphysi s. Imaging was performed without IV contrast. Axial, coronal, and sagittal multiplanar reformats were obtained from the axial data set by the technologist. RADIATION DOSE: DLP 667.59 mGy.cm; CTDI vol 12.76 mGy. Findings: Lungs: The lung bases are clear. Heart: No cardiomegaly or pericardial effusion. Liver: Unremarkable. Gallbladder: Unremarkable. Spleen: Unremarkable Pancreas: Unremarkable Adrenals: Unremarkable Kidneys: Unremarkable GI tract: Unremarkable : Unremarkable. Vasculature: Mild aortoiliac atherosclerosis. Lymphadenopathy: Absent Peritoneum: No ascites Musculoskeletal: Mild multilevel degenerative changes of the thoracolumbar spine. Soft tissues: Unremarkable Impression: 1. No acute abdominopelvic abnormalities.
[2024-07-09 18:35] LABS: Basophils # (auto) 0 10 ^3/uL (0-0.2); Basophils % (auto) 0.5 % (0.0-2.0); Eosinophils # (auto) 0.5 10 ^3/uL (0-0.8); Eosinophils % (auto) 6.2 % (0.0-7.0); Hematocrit 46.6 % (41.0-53.0); Hemoglobin 15.1 g/dL (13.5-17.5); Lymphocytes # (auto) 1.5 10 ^3/uL (0.4-5.4); Lymphocytes % (auto) 19.2 % (10.0-50.0); Mean Corpuscular Hemoglobin 29.7 pg (28.0-32.0); Mean Corpuscular Hgb Conc. 32.3 g/dL (32.0-36.0); Mean Corpuscular Volume 91.9 fL (80.0-100.0); Monocytes # (auto) 0.8 10 ^3/uL (0-1.3); Monocytes % (auto) 10.5 % (0.0-12.0); Neutrophils % (auto) 63.6 % (37.0-80.0); Platelet Count (auto) 230 10^3/uL (140-450); Red Blood Cells 5.07 10^6/uL (4.5-5.90); Red Cell Distribution Width 14.6 % (11.8-14.3); White Blood Cell 7.9 10^3/uL (4.4-10.8)
[2024-07-09 18:50] LABS: Albumin 4.7 g/dL (3.2-4.8); Alkaline Phosphatase 94 U/L (46-116); Anion Gap 11 (5-15); Carbon Dioxide 26 mmol/L (20-31); Glucose 94 mg/dL (74-106); Lipase 38 U/L (12-53); Potassium 4.9 mmol/L (3.5-5.1); Sodium 144 mmol/L (136-145)
[2024-07-09 18:51] LABS: Bilirubin, Total 0.3 mg/dL (0.2-1.0)
[2024-07-09 18:52] LABS: Alanine Aminotransferase 185 U/L (7-40); Aspartate Aminotransferase 152 U/L (13-40); Blood Urea Nitrogen 29 mg/dL (9-23); Calcium 10.4 mg/dL (8.7-10.4); Chloride 107 mmol/L (98-107)
[2024-07-09] MEDS: NITROGLYCERIN 2% OINT 1GM PKG TD ONE (19:15)
[2024-07-09] MEDS: MORPHINE SULFATE 4 MG/ML SYR/VIAL IV ONE (19:30)
--- NOTE | 2024-07-09 20:26 | DVHHP2 ---
History of Present Illness Reason for Visit: Acute on chronic systolic heart failure History of Present Illness The patient is a 63-year-old male with multiple past medical history including CHF, COPD, DM, MA, and hypertension who presented to [facility] [place] ED with complaint of abdominal pain. Patient reports symptoms progressively get worse with chest pain, shortness of breaths, associated diarrhea, nausea, vomiting, getting worse that prompted this visit. Patient was seen and evaluated in the ED, laboratory data shows WBC 7.9, platelets 230, sodium 144, potassium 4.9, BUN 29, creatinine 1.45, GFR 54, glucose 94, troponin 37, AST 152, ALT 180, BNP 1908.74, blood pressure 133/90, heart rate 99, temperature 97.0 F, O2 saturation 96% on oxygen. Abdomen/pelvis CT showed no acute abdominopelvic abnormalities. Chest x-ray revealing borderline cardiomegaly with pulmonary vascular congestion, no pneumothorax, pleural effusions, or consolidations. Pat ient was started on IV Lasix, please see medication orders section in the computer. On my assessment, patient denies chest pain, no headache, no dizziness, no abdominal pain, diarrhea, nausea or vomiting at this moment, no fever, no chills. Patient was admitted for further evaluation and medical management. Past Medical History Anxiety, CAD, CHF, CKF, COPD, Depression, DM, GERD, High Lipids, HTN, MA, Thyroid Past Surgical History Pacemaker Family History Reviewed, noncontributory to the management of this case. Past Social History The patient lives at home, smokes cigarettes less than 1 pack per day, denies alcohol or illicit drugs abuse. Review of Systems Constitutional: Yes: Weakness; No: Fever, Chills, Sweats, Malaise, Other Eyes: No: Pain, Vision change, Conjunctivae inflammation, Eyelid inflammation, Other, Redness ENT: No: Ear pain, Ear discharge, Nose pain, Nose discharge, Nose congestion, Mouth pain, Mouth swelling, Throat pain, Throat swelling, Other Respiratory: Shortness of breath; No: Cough, Dry, SOB with excertion, Wheezing, Hemoptysis, Pleuritic Pain, Sputum, Wheezing, Other Cardiovascular: Chest Pain; No: Palpitations, Orthopnea, Paroxysmal Noc. D yspnea, Edema, Lt Headedness, Other Gastrointestinal: Nausea, Vomiting, Abdominal Pain, Diarrhea; No: Constipation, Melena, Hematochezia, Other Genitourinary: No Dysuria, No Frequency, No Incontinence, No Hematuria, No Retention, No Other Musculoskeletal: No: other, neck pain, shoulder pain, arm pain, back pain, hand pain, leg pain, foot pain Skin: No: Rash, Lesions, Jaundice, Bruising, Other Neurological: No: Weakness, Numbness, Incoordination, Change in speech, Confusion, Seizures, Other Allergies: Coded Allergies: Morphine (Unverified Allergy, Unknown, 04/18/22) SEVERE BRADYCARDIA Exam Vital Signs Vital Signs Date Time Temp Pulse Resp B/P (MAP) Pulse Ox O2 Delivery O2 Flow Rate FiO2 07/09/24 17:09 96.9 99 16 133/90 (104) 96 General Appearance: Alert, Oriented X3, Cooperative, No acute distress HEENT: Atraumatic, PERRLA, EOMI, Mucous membr. moist/pink Respiratory: Normal air movement, Other (Congestion) Cardiovascular: Regular rate, Normal S1, Normal S2, No murmurs Abdominal: Normal bowel sounds, Soft, No tenderness, No hepatospenomegaly, No masses Extremities: No clubbing, No cyanosis, No edema, Normal pulses, No tenderness/swelling Skin: No rashes, No breakdown, No significant lesion Neuro: Normal speech, Normal tone, Sensation intact, Cranial nerves 3-12 NL, Reflexes 2+, Other (Generalized weakness) Psych/Mental Status: Mental status NL, Mood NL Labs/Xrays Labs Test 07/09/24 19:24 07/09/24 18:04 Range/Units Troponin I High Sensitivity 36 </=54 ng/L White Blood Count 7.9 4.4-10.8 10^3/uL Red Blood Count 5.07 4.5-5.90 10^6/uL Hemoglobin 15.1 13.5-17.5 g/dL Hematocrit 46.6 41.0-53.0 % Mean Corpuscular Volume 91.9 80.0-100.0 fL Mean Corpuscular Hemoglobin 29.7 28.0-32.0 pg Mean Corpuscular Hemoglobin Concent 32.3 32.0-36.0 g/dL Red Cell Distribution Width 14.6 H 11.8-14.3 % Platelet Count 230 140-450 10^3/uL Mean Platelet Volume 8.9 6.9-10.8 fL Neutrophils (%) (Auto) 63.6 37.0-80.0 % Lymphocytes (%) (Auto) 19.2 10.0-50.0 % Monocytes (%) (Auto) 10.5 0.0-12.0 % Eosinophils (%) (Auto) 6.2 0.0-7.0 % Basophils (%) (Auto) 0.5 0.0-2.0 % Neutrophils # (Auto) 5.0 1.6-8.6 10 ^3/uL Lymphocytes # (Auto) 1.5 0.4-5.4 10 ^3/uL Monocytes # (Auto) 0.8 0-1.3 10 ^3/uL Eosinophils # (Auto) 0.5 0-0.8 10 ^3/uL Basophils # (Auto) 0 0-0.2 10 ^3/uL Nucleated Red Blood Cells 0.0 % Sodium Level 144 136-145 mmol/L Potassium Level 4.9 3.5-5.1 mmol/L Chloride Level 107 98-107 mmol/L Carbon Dioxide Level 26 20-31 mmol/L Anion Gap 11 5-15 Blood Urea Nitrogen 29 H 9-23 mg/dL Creatinine 1.45 H 0.700-1.30 mg/dL Glomerular Filtration Rate Calc 54 >90 mL/min BUN/Creatinine Ratio 20.0 10.0-20.0 Serum Glucose 94 74-106 mg/dL Lactic Acid Level 1.2 0.4-2.0 mmol/L Calcium Level 10.4 8.7-10.4 mg/dL Total Bilirubin 0.3 0.2-1.0 mg/dL Aspartate Amino Transferase (AST) 152 H 13-40 U/L Alanine Aminotransferase (ALT) 185 H 7-40 U/L Alkaline Phosphatase 94 46-116 U/L B-Type Natriuretic Peptide 1918.74 0-100 pg/mL Total Protein 7.0 5.7-8.2 g/dL Albumin 4.7 3.2-4.8 g/dL Lipase 38 12-53 U/L PATIENT: XIAO HERNANDEZ ACCT: [id number] UNIT: [id number] : 1960 LOC: ER ROOM / BED: / AGE / SEX: 63 / M ADM STATUS: REG ER SERVICE 1711 ORDERING PHYSICIAN: DAMIAN SHANNON MD PROCEDURE(s): ABPL - CT AB PEL WO CON-NO ORAL OR IV REASON: low abd pain n/v/d ORDER NUMBER(s): [id number], ACCESSION NUMBER(s): [id number] Exam: CT CT AB PEL WO CON-NO ORAL OR IV History: low abd pain n/v/d Comparison Study: CT CT AB PEL WO CON-NO ORAL OR IV on DOS: 05/16/24, CT CT AB PEL WO CON-NO ORAL OR IV on DOS: 01/31/24 TECHNIQUE: Multidetector CT of the abdomen and pelvis was performed from lung bases to pubic symphysis. Imaging was performed without IV contrast. Axial, coronal, and sagittal multiplanar reformats were obtained from the axial data set by the technologist. RADIATION DOSE: DLP 667.59 mGy.cm; CTDI vol 12.76 mGy. Findings: Lungs: The lung bases are clear. Heart: No cardiomegaly or pericardial effusion. Liver: Unremarkable. Gallbladder: Unremarkable. Spleen: Unremarkable Pancreas: Unremarkable Adrenals: Unremarkable Kidneys: Unremarkable GI tract: Unremarkable : Unremarkable. Vasculature: Mild aortoiliac atherosclerosis. Lymphadenopathy: Absent Peritoneum: No ascites Musculoskeletal: Mild multilevel degenerative changes of the thoracolumbar spine. Soft tissues: Unremarkable Impression: 1. No acute abdominopelvic abnormalities. ORDERING PHYSICIAN: DAMIAN SHANNON MD PROCEDURE(s): CXRP - CHEST PORTABLE REASON: n/v ORDER NUMBER(s): [id number], ACCESSION NUMBER(s): [id number] EXAM: XY CHEST PORTABLE TECHNIQUE: Single frontal chest radiograph CLINICAL HISTORY: n/v COMPARISON: XY CHEST PORTABLE on DOS: 07/03/24, XY CHEST PORTABLE on DOS: 05/16/24, XY CHEST PORTABLE on DOS: 05/09/24 Findings/Impression: Frontal chest radiograph demonstrates no acute osseous or superficial soft tissue abnormalities. Left chest wall ICD. The trachea is midline. Borderline cardiomegaly with pulmonary vascular congestion. No pneumothorax, pleural effusions, or consolidations. Assessment/Plan Assessment/Plan Acute on chronic systolic heart failure Generalized weakness Elevated liver enzymes Acute renal injury COPD with acute exacerbation Plan 1. Admit to telemetry unit 2. Breathing treatment 3. Pain control management 4. Management of fluids and electrolytes 5. Consultation for Cardiology 6. Diagnostic tests chest x-ray 7. DVT prophylaxis-on aspirin 8. Repeat labs CBC, CMP in a.m. 9. Continue with current medical management 10. Treatment plan discussed with patient and RN. Patient verbalized understanding. Plan discussed with: Patient, Other (RN) Problem List: (1) Acute on chronic systolic heart failure (2) Elevated liver enzymes (3) Acute renal injury (4) COPD with acute exacerbation (5) Generalized weakness Date of Service: Jul 09, 2024 Billing Provider: DARCY PERAZA DNP Common Visit Codes: [id number] INP/OBS CARE (HIGH) DARCY PERAZA DNP Jul 09, 2024 20:26
[2024-07-09] MEDS ORDERED: DOCUSATE SOD 100 MG CAP PO PRN (20:30)
[2024-07-09] MEDS ORDERED: DEXTROSE (50%) 50ML SYRG IV PRN (20:30)
[2024-07-09] MEDS ORDERED: NITROGLYCERIN 0.4 MG SL TAB SL PRN (20:30)
[2024-07-09 20:43] VITALS: BP 133/90; PULSE 99; RESP 16; O2SAT 96
[2024-07-09] MEDS ORDERED: IPRATROPIUM BROM 0.5 MG/2.5ML INH SOL NEB PRN (20:45)
[2024-07-09] MEDS ORDERED: ALBUTEROL SULF 2.5 MG/0.5ML(0.5%) NEB SOLN NEB PRN (20:45)
[2024-07-09 20:54] VITALS: O2SAT 96
[2024-07-09 21:00] VITALS: BP 112/66; PULSE 80; RESP 17; TEMP 97.7; O2SAT 91
[2024-07-09] MEDS: FUROSEMIDE 40 MG/4 ML VIAL IV ONE (21:45)
[2024-07-09] MEDS: InsuLIN REG 1unit/0.01ml Soln (100units/ml) SC SCH (22:00)
[2024-07-09 22:30] VITALS: BP 126/84; PULSE 101; RESP 18; TEMP 98.5; O2SAT 90
[2024-07-09] MEDS: CARVEDILOL 3.125 MG TAB PO SCH (22:31)
[2024-07-09] MEDS: ACCU-CHEK COMFORT CURVE STRIP VI SCH (22:32)
[2024-07-09] MEDS: SODIUM CHLOR 0.9% PF (SALINE LOCK) 10ML VIAL/SYR IV SCH (22:32)
[2024-07-09] MEDS ORDERED: ALBU108A5 (22:41)
[2024-07-09 22:42] VITALS: BP 126/84; PULSE 101; RESP 18; TEMP 98.5; O2SAT 90; O2SAT 92
[2024-07-10] VITALS (11 sets, daily range): BP systolic 98–113; BP diastolic 61–71; PULSE 70–93; RESP 16–20; TEMP 97.4–98.9; O2SAT 91–98
[2024-07-10] MEDS: IBUPROFEN 600 MG TAB PO PRN (03:11)
[2024-07-10] MEDS: LEVOTHYROXINE SODIUM 100 MCG TAB PO SCH (05:35)
[2024-07-10] MEDS: LEVOTHYROXINE SODIUM 25 MCG TAB PO SCH (05:35)
--- NOTE | 2024-07-10 07:17 | DVHPN2 ---
Progress Note Date Seen: Jul 10, 2024 Medical Necessity Reason Pt with a Central, PICC or Fol: No Subjective Review of Systems: CVS:Normal, RESPIRATORY:Normal, :Normal, NEURO:Normal Objective vital signs Vital Sign Date Time Temp Pulse Resp B/P (MAP) Pulse Ox O2 Delivery O2 Flow Rate FiO2 07/10/24 05:00 98.3 81 17 112/71 (85) 96 98.3 07/09/24 22:42 Room Air* 0 21 Total Intake and Output 07/09/24 07/09/24 07/10/24 15:00 23:00 07:00 Intake Total 610 ml Output Total 1025 ml Balance -415 ml medications Current Medications Medications Dose Ordered Sig/Manuel Route Start Time Stop Time Status Last Admin Dose Admin Losartan Potassium 25 mg DAILY PO 07/10/24 10:00 Furosemide 40 mg DAILY IV 07/10/24 10:00 Ibuprofen 600 mg Q6HP PRN PO 07/09/24 20:30 07/10/24 03:11 600 MG Levothyroxine Sodium 100 mcg QAM@0600 PO 07/10/24 06:00 07/10/24 05:35 100 MCG Carvedilol 3.125 mg Q12HR PO 07/09/24 22:00 07/09/24 22:31 3.125 MG Aspirin 81 mg DAILY PO 07/10/24 10:00 Tamsulosin HCl 0.4 mg QPM PO 07/10/24 18:00 Diagnostic Test (Pha) 1 strip ACHS 07/09/24 22:00 07/10/24 05:54 1 STRIP Insulin Human Regular ACHS SC 07/09/24 22:00 Dextrose 50 ml UD PRN IV 07/09/24 20:30 Sodium Chloride 10 ml Q8HR IV 07/09/24 22:00 07/10/24 05:53 10 ML Acetaminophen/ Hydrocodone Bitart 1 tab Q4HP PRN PO 07/09/24 20:30 Ondansetron HCl 4 mg Q4HP PRN IV 07/09/24 20:30 Docusate Sodium 100 mg BIDPRN PRN PO 07/09/24 20:30 Nitroglycerin 0.4 mg Q5MINP PRN SL 07/09/24 20:30 Albuterol 2.5 mg Q4HPRN PRN NEB 07/09/24 20:45 Ipratropium [place] 0.5 mg Q4HPRN PRN NEB 07/09/24 20:45 Levothyroxine Sodium 25 mcg QAM@0600 PO 07/10/24 06:00 07/10/24 05:35 25 MCG Examination: GENERAL:Normal, LUNGS:Normal, CVS:Normal, ABDOMEN:Normal, SKIN:Normal laboratory and microbiology Laboratory Tests 07/09/24 18:04 Test 07/09/24 18:04 Range/Units Serum Glucose 94 74-106 mg/dL Labs and/or images reviewed: Labs reviewed by me, Image(s) reviewed by me Problem List/Assessment/Plan Problem List/Assessment/Plan 1. Acute on chronic systolic heart failure EF of 30% Cardiology consult, IV diuretics, fluid restriction 2. Elevated liver enzymes likely secondary to congestion from CHF IV diuretics, rule out hepatitis 3. MÓNICA on CKD 3A Monitor renal function 4. COPD with acute exacerbation Med neb treatments 5. Chest pain Cardiac consult, monitor EKG 6. Abdominal pain likely from gastritis PPI, GI consult 7. active smoker Counseled to stop smoking Subjective: Awake and alert x4 Objective: Patient was admitted for chest pain and abdominal pain. Patient was subsequently found to have acute on chronic systolic heart failure with BNP of 1918, patient is currently on IV diuretics, cardiac consult is pending and fluid restriction. Patient is also reporting abdominal pain which has now resolved likely from gastritis, patient was placed on PPI and GI was consulted. Patient was also found to have elevated liver enzymes we will obtain liver ultrasound, rule out hepatitis, likely is from congestion from CHF. Patient also has MÓNICA on CKD, creatinine is 1.7 GFR is 43. Patient is cleared by direct marketing manager tomorrow we will discharge. Plan: IV diuretics, fluid restriction, awaiting cardiac consult, GI consult appreciated, if cleared by direct marketing manager we will discharge tomorrow. Plan discussed with: Patient My Orders My Orders Orders - CHERRY PARRISH Procedure Category Date Status Time * Cardiology Consult CONS 07/10/24 Transmitted 07:15 Complete Blood Count LAB 07/10/24 Logged 07:15 Comprehensive LAB 07/10/24 Logged Metabolic Panel 07:15 Magnesium LAB 07/10/24 Logged 07:15 Free T4 (Free LAB 07/10/24 Transmitted Thyroxine) 07:16 Date of Service: Jul 10, 2024 Billing Provider: JD HOUGH MD Common Visit Codes: [id number] INP/OBS CARE (MOD) CHERRY PARRISH REGULATORY TECHNICIAN Jul 10, 2024 07:17
[2024-07-10 08:02] LABS: Basophils # (auto) 0.1 10 ^3/uL (0-0.2); Basophils % (auto) 1.3 % (0.0-2.0); Eosinophils # (auto) 0.5 10 ^3/uL (0-0.8); Eosinophils % (auto) 7.8 % (0.0-7.0); Hematocrit 41.8 % (41.0-53.0); Hemoglobin 13.3 g/dL (13.5-17.5); Lymphocytes # (auto) 1.8 10 ^3/uL (0.4-5.4); Lymphocytes % (auto) 25.6 % (10.0-50.0); Mean Corpuscular Hemoglobin 29.4 pg (28.0-32.0); Mean Corpuscular Hgb Conc. 31.9 g/dL (32.0-36.0); Monocytes # (auto) 0.9 10 ^3/uL (0-1.3); Monocytes % (auto) 12.4 % (0.0-12.0); Neutrophils # (auto) 3.7 10 ^3/uL (1.6-8.6); Neutrophils % (auto) 52.9 % (37.0-80.0); Nucleated Red Blood Cells % 0.1 %; Platelet Count (auto) 202 10^3/uL (140-450); Red Blood Cells 4.54 10^6/uL (4.5-5.90); Red Cell Distribution Width 14.9 % (11.8-14.3)
[2024-07-10 08:29] LABS: Albumin 3.6 g/dL (3.2-4.8); Alkaline Phosphatase 71 U/L (46-116); Anion Gap 12 (5-15); BUN/Creatinine Ratio 16.5 (10.0-20.0); Calcium 9.1 mg/dL (8.7-10.4); Carbon Dioxide 22 mmol/L (20-31); Chloride 107 mmol/L (98-107); Potassium 4.1 mmol/L (3.5-5.1); Sodium 141 mmol/L (136-145); Total Protein 5.8 g/dL (5.7-8.2)
[2024-07-10 08:30] LABS: Bilirubin, Total 0.4 mg/dL (0.2-1.0)
[2024-07-10 08:36] LABS: Alanine Aminotransferase 128 U/L (7-40); Aspartate Aminotransferase 79 U/L (13-40); Blood Urea Nitrogen 29 mg/dL (9-23); Glucose 69 mg/dL (74-106)
[2024-07-10] MEDS: LOSARTAN POTASSIUM 25 MG TAB PO SCH (09:33)
[2024-07-10] MEDS: FUROSEMIDE 40 MG/4 ML VIAL IV SCH (09:33)
[2024-07-10] MEDS: ASPirin 81 mg TAB PO SCH (09:33)
[2024-07-10] MEDS: clonazePAM 0.5 MG TAB PO ONE (11:24)
--- NOTE | 2024-07-10 13:22 | DVHINCON2 ---
Date of service: Jul 10, 2024 Referring Physician Amos Smith Reason for Consultation Abdominal pain History of Present Illness The patient is a 63-year-old male with multiple past medical history including CHF, COPD, DM, AR, and hypertension who presented to [facility] ED with complaint of lower abdominal pain. Patient reports symptoms progressively get worse with chest pain, shortness of breaths, associated diarrhea, nausea, vomiting, getting worse that prompted this visit.Abdomen/pelvis CT showed no acute abdominopelvic abnormalities. Chest x-ray revealing borderline cardiomegaly with pulmonary vascular congestion. Patient was started on IV Lasix for elevated BNP Patient was seen at bedside this morning. He was sitting up at the edge of the bed and tolerating his regular diet. Patient stated his abdominal pain and diarrhea appeared to have resolved. He has no nausea vomiting. He denied any GI bleeding. Patient has not had any prior endoscopy or colonoscopy according to our records and confirmed by patient Past Medical History Past Medical History Anxiety, CAD, CHF, CKF, COPD, Depression, DM, GERD, High Lipids, HTN, AR, Thyroid Past Surgical History Past Surgical History Pacemaker Family History: Alcoholism G8 FATHER, , Cause: AR (myocardial infarction), Onset:40's - 50 FH: arrhythmia G8 MOTHER FH: breast cancer G8 SISTER, , Cause: AR (myocardial infarction) FH: diabetes mellitus FH: heart attack G8 FATHER, , Cause: AR (myocardial infarction) G8 BROTHER, , Cause: AR (myocardial infarction) Family history: Cardiovascular disease G8 FATHER, , Cause: AR (myocardial infarction), Onset:40's - 50 Family history: Diabetes mellitus G8 MOTHER, Onset:40's - 50 G8 FATHER, , Cause: AR (myocardial infarction) G8 SISTER, , Cause: AR (myocardial infarction) Allergies: Coded Allergies: Morphine (Unverified Allergy, Unknown, 04/18/22) SEVERE BRADYCARDIA Home Meds Active Scripts Carvedilol (COREG) 3.125 Mg Tab, 3.125 MG PO Q12HR for 30 Days, #60 TAB Prov:MANJULA LAN LEAD APPLICATION ARCHITECT 07/05/24 Furosemide (Lasix) 20 Mg Tb, 1 TAB PO DAILY, #90 TAB 1 Refill Prov:EUN LI MD 09/16/23 Sacubitril-Valsartan (Entresto 24-26 mg) 1 Tab Tab, 1 TAB PO BID, #180 TAB Prov:EUN LI MD 09/16/23 Reported Medications Albuterol Sulfate (Albuterol Sulfate Hfa) 108 Mcg/Act Aer 07/09/24 Clonazepam (Clonazepam) 0.5 Mg Tab, 1 TAB PO BID for 30 Days, #60 07/04/24 Levothyroxine Sodium (Levothyroxine Sodium) 125 Mcg Tab, 1 TAB PO DAILY for 60 Days, #60 07/04/24 Venlafaxine Hcl (Venlafaxine Hcl Er) 150 Mg Tab, 1 TAB PO DAILY for 30 Days, #30 07/04/24 Dapagliflozin Propanediol (Farxiga) 10 Mg Tab, 1 TAB PO DAILY for 30 Days, #30 09/14/23 Tamsulosin Hcl (Tamsulosin Hcl) 0.4 Mg Cap, 0.8 MG PO DAILY AFTER MEAL, MG 09/14/23 Losartan Potassium (Losartan Potassium) 25 Mg Tab, 1 TAB PO DAILY, #90 TAB 1 Refill 04/18/22 Discontinued Reported Medications Carvedilol (Carvedilol) 6.25 Mg Tab, 1 TAB PO BIDWM, TAB 09/14/23 Current Medications Current Medications Medications (Trade) Dose Ordered Sig/Manuel Route PRN Reason Start Time Stop Time Status Last Admin Losartan Potassium (Cozaar Tablet) 25 mg DAILY PO 07/10/24 10:00 07/10/24 09:33 Furosemide (Lasix Injection) 40 mg DAILY IV 07/10/24 10:00 07/10/24 09:33 Ibuprofen (Motrin Tablet) 600 mg Q6HP PRN PO PAIN SCALE 1-3 OR TEMP>100.4 07/09/24 20:30 07/10/24 03:11 Levothyroxine Sodium (Synthroid Tablet) 100 mcg QAM@0600 PO 07/10/24 06:00 07/10/24 05:35 Carvedilol (Coreg Tablet) 3.125 mg Q12HR PO 07/09/24 22:00 07/10/24 09:32 Aspirin 81 mg DAILY PO 07/10/24 10:00 07/10/24 09:33 Tamsulosin HCl (Flomax) 0.4 mg QPM PO 07/10/24 18:00 Diagnostic Test (Pha) (Accu-Chek Comfort Curve T) 1 strip ACHS 07/09/24 22:00 07/10/24 05:54 Insulin Human Regular (InsuLIN R) ACHS SC 07/09/24 22:00 Dextrose 50 ml UD PRN IV Blood Sugar LESS THAN 60 07/09/24 20:30 Sodium Chloride (Saline Lock Ns) 10 ml Q8HR IV 07/09/24 22:00 07/10/24 05:53 Acetaminophen/ Hydrocodone Bitart ([place] 5/325MG Tab) 1 tab Q4HP PRN PO MODERATE PAIN (4-6 PAIN SCALE) 07/09/24 20:30 Ondansetron HCl (Zofran) 4 mg Q4HP PRN IV NAUSEA / VOMITING 07/09/24 20:30 Docusate Sodium (Colace Capsule) 100 mg BIDPRN PRN PO FOR CONSTIPATION 07/09/24 20:30 Nitroglycerin (Ntrostat Sublingual) 0.4 mg Q5MINP PRN SL FOR CHEST PAIN 07/09/24 20:30 Albuterol (Ventolin Medneb) 2.5 mg Q4HPRN PRN NEB SHORTNESS OF BREATH 07/09/24 20:45 Ipratropium [place] (Atrovent Medneb) 0.5 mg Q4HPRN PRN NEB SHORTNESS OF BREATH 07/09/24 20:45 Levothyroxine Sodium (Synthroid Tablet) 25 mcg QAM@0600 PO 07/10/24 06:00 07/10/24 05:35 Clonazepam (KlonoPIN TABLET) 0.5 mg BID PO 07/10/24 22:00 Pantoprazole Sodium (Protonix) 40 mg DAILY IV 07/11/24 10:00 Vital Signs Vital Signs Date Time Temp Pulse Resp B/P (MAP) Pulse Ox O2 Delivery O2 Flow Rate FiO2 07/10/24 12:22 97.5 78 16 101/71 (81) 95 97.5 07/10/24 08:00 Room Air* 0 21 Physical Exam General Appearance: Alert, Oriented X3, Cooperative, No acute distress HEENT: Atraumatic, PERRLA, EOMI, Mucous membr. moist/pink Respiratory: Normal air movement, Other (Congestion) Cardiovascular: Regular rate, Normal S1, Normal S2, No murmurs Abdominal: Normal bowel sounds, Soft, No tenderness, No hepatospenomegaly, No masses Extremities: No clubbing, No cyanosis, No edema, Normal pulses, No tenderness/swelling Skin: No rashes, No breakdown, No significant lesion Neuro: Normal speech, Normal tone, Sensation intact Psych/Mental Status: Mental status NL, Mood NL Labs/Diagnostic Data Labs Test 07/10/24 05:48 07/09/24 22:23 07/09/24 21:12 07/09/24 18:04 Range/Units White Blood Count 7.0 4.4-10.8 10^3/uL Red Blood Count 4.54 4.5-5.90 10^6/uL Hemoglobin 13.3 L 13.5-17.5 g/dL Hematocrit 41.8 # 41.0-53.0 % Mean Corpuscular Volume 92.0 80.0-100.0 fL Mean Corpuscular Hemoglobin 29.4 28.0-32.0 pg Mean Corpuscular Hemoglobin Concent 31.9 L 32.0-36.0 g/dL Red Cell Distribution Width 14.9 H 11.8-14.3 % Platelet Count 202 140-450 10^3/uL Mean Platelet Volume 9.1 6.9-10.8 fL Neutrophils (%) (Auto) 52.9 37.0-80.0 % Lymphocytes (%) (Auto) 25.6 10.0-50.0 % Monocytes (%) (Auto) 12.4 H 0.0-12.0 % Eosinophils (%) (Auto) 7.8 H 0.0-7.0 % Basophils (%) (Auto) 1.3 0.0-2.0 % Neutrophils # (Auto) 3.7 1.6-8.6 10 ^3/uL Lymphocytes # (Auto) 1.8 0.4-5.4 10 ^3/uL Monocytes # (Auto) 0.9 0-1.3 10 ^3/uL Eosinophils # (Auto) 0.5 0-0.8 10 ^3/uL Basophils # (Auto) 0.1 0-0.2 10 ^3/uL Nucleated Red Blood Cells 0.1 % Sodium Level 141 136-145 mmol/L Potassium Level 4.1 3.5-5.1 mmol/L Chloride Level 107 98-107 mmol/L Carbon Dioxide Level 22 20-31 mmol/L Anion Gap 12 5-15 Blood Urea Nitrogen 29 H 9-23 mg/dL Creatinine 1.76 H 0.700-1.30 mg/dL Glomerular Filtration Rate Calc 43 >90 mL/min BUN/Creatinine Ratio 16.5 10.0-20.0 Serum Glucose 69 L 74-106 mg/dL Calcium Level 9.1 8.7-10.4 mg/dL Magnesium Level 2.0 1.6-2.6 mg/dL Total Bilirubin 0.4 0.2-1.0 mg/dL Aspartate Amino Transferase (AST) 79 H 13-40 U/L Alanine Aminotransferase (ALT) 128 H 7-40 U/L Alkaline Phosphatase 71 46-116 U/L Total Protein 5.8 5.7-8.2 g/dL Albumin 3.6 3.2-4.8 g/dL POC Glucose 75 70-106 mg/dl Troponin I High Sensitivity 39 </=54 ng/L Lactic Acid Level 1.2 0.4-2.0 mmol/L B-Type Natriuretic Peptide 1918.74 0-100 pg/mL Lipase 38 12-53 U/L Thyroid Stimulating Hormone (TSH) 4.82 H 0.55-4.78 uIU/mL Problems(with codes): (1) Diarrhea (2) CHEST PAIN NOS Plan/Recommendation Plan At this time the patient appears to be stable and has no GI symptoms I would recommend conservative observation and management at this time We will put him on Protonix 40 mg p.o. daily Patient may have had acute food poisoning or gastroenteritis that has resolved He was advised to follow up in my office as an outpatient for elective panendoscopy My contact information was provided Patient will need cardiac clearance because he has underlying cardiomyopathy Once again thank you for allowing me to participate in the care of this patient I will follow this patient with you Plan discussed with: Patient GRACE PINTO MD Jul 10, 2024 13:22
--- NOTE | 2024-07-10 15:49 | DVH ---
EXAM: US LIVER HISTORY: transaminitis COMPARISON: None TECHNIQUE: Right upper quadrant ultrasound was performed. FINDINGS: The gallbladder appears contracted, with gallbladder wall thickening measuring 4 mm. No gallstones or pericholecystic free fluid. The patient was not tender to transducer pressure over the gallbladder. No intrahepatic biliary ductal dilatation or liver mass. The liver measures 14.5 cm longitudinal. T here is hepatopetal portal venous color Doppler flow. The common bile duct, pancreas, IVC, and abdom inal aorta are not well visualized sonographically, possibly due to overlying bowel gas. The right k idney measures 11.7 cm in length and is normal in appearance. IMPRESSION: 1. Normal sonographic appearance of the liver. 2. Contracted gallbladder with associated physiologic gallbladder wall thickening.
[2024-07-10] MEDS: TAMSULOSIN HYDROCHLORIDE 0.4 MG CAP PO SCH (17:39)
--- NOTE | 2024-07-10 22:28 | DVHPN2 ---
Subjective The patient is seen and examined at bedside. No complaint today. Reviewed: Care Plan, H&P, Labs, Medications, Previous Orders, Radiology Changes from previous H/P or p: No Changes Eyes: No Pain, No Vision change, No Conjunctivae inflammation, No Eyelid inflammation, No Other, No Redness ENT: No Ear pain, No Ear discharge, No Nose pain, No Nose discharge, No Nose congestion, No Mouth pain, No Mouth swelling, No Throat pain, No Throat swelling, No Other Cardiovascular: Chest Pain; No Palpitations, No Orthopnea, No Paroxysmal Noc. Dyspnea, No Edema, No Lt Headedness, No Other Respiratory: No Cough, No Dry; Shortness of breath; No SOB with excertion, No Wheezing, No Hemoptysis, No Pleuritic Pain, No Sputum, No Other Gastrointestinal: Nausea, Vomiting, Abdominal Pain, Diarrhea; No Constipation, No Melena, No Hematochezia, No Other Genitourinary: No Dysuria, No Frequency, No Incontinence, No Hematuria, No Retention, No Other Musculoskeletal: No other, No neck pain, No shoulder pain, No arm pain, No back pain, No hand pain, No leg pain, No foot pain Skin: No Rash, No Lesions, No Jaundice, No Bruising, No Other Objective Vitals Vital Signs Date Time Temp Pulse Resp B/P (MAP) Pulse Ox O2 Delivery O2 Flow Rate FiO2 07/10/24 21:00 98.9 76 18 98/66 (77) 97 98.9 07/10/24 20:00 Room Air* 0 21 Intake/Output Intake and Output 07/10/24 07:00 Intake Total 610 ml Output Total 1025 ml Balance -415 ml Intake Oral 610 ml Output Urine Total 1025 ml General Appearance: Alert, No acute distress HEENT: Atraumatic, PERRLA, EOMI, Mucous membr. moist/pink Neck: Supple Lungs: Clear to auscultation, Normal air movement Cardiovascular: Regular rate, Normal S1, Normal S2, No murmurs, Gallops, Rubs Abdomen: Normal bowel sounds, Soft, No tenderness Neuro: Cranial nerves 3-12 NL Medications Current Medications Medications Dose Ordered Sig/Manuel Route Start Time Stop Time Status Last Admin Dose Admin Losartan Potassium 25 mg DAILY PO 07/10/24 10:00 07/10/24 09:33 25 MG Ibuprofen 600 mg Q6HP PRN PO 07/09/24 20:30 07/10/24 03:11 600 MG Levothyroxine Sodium 100 mcg QAM@0600 PO 07/10/24 06:00 07/10/24 05:35 100 MCG Carvedilol 3.125 mg Q12HR PO 07/09/24 22:00 07/10/24 09:32 3.125 MG Aspirin 81 mg DAILY PO 07/10/24 10:00 07/10/24 09:33 81 MG Tamsulosin HCl 0.4 mg QPM PO 07/10/24 18:00 07/10/24 17:39 0.4 MG Diagnostic Test (Pha) 1 strip ACHS 07/09/24 22:00 07/10/24 21:11 1 STRIP Insulin Human Regular ACHS SC 07/09/24 22:00 Dextrose 50 ml UD PRN IV 07/09/24 20:30 Sodium Chloride 10 ml Q8HR IV 07/09/24 22:00 07/10/24 13:32 10 ML Acetaminophen/ Hydrocodone Bitart 1 tab Q4HP PRN PO 07/09/24 20:30 Ondansetron HCl 4 mg Q4HP PRN IV 07/09/24 20:30 Docusate Sodium 100 mg BIDPRN PRN PO 07/09/24 20:30 Nitroglycerin 0.4 mg Q5MINP PRN SL 07/09/24 20:30 Albuterol 2.5 mg Q4HPRN PRN NEB 07/09/24 20:45 Cancel Ipratropium [place] 0.5 mg Q4HPRN PRN NEB 07/09/24 20:45 Cancel Levothyroxine Sodium 25 mcg QAM@0600 PO 07/10/24 06:00 07/10/24 05:35 25 MCG Clonazepam 0.5 mg BID PO 07/10/24 22:00 Pantoprazole Sodium 40 mg DAILY IV 07/11/24 10:00 Furosemide 40 mg DAILY IV 07/11/24 10:00 Nicotine 1 patch DAILY TD 07/11/24 10:00 Laboratory Results Laboratory Tests 07/10/24 05:48 Chemistry Test 07/10/24 05:48 Albumin 3.6 g/dL (3.2-4.8) Calcium Level 9.1 mg/dL (8.7-10.4) Magnesium Level 2.0 mg/dL (1.6-2.6) Total Protein 5.8 g/dL (5.7-8.2) LFT Test 07/10/24 05:48 Alanine Aminotransferase (ALT) 128 U/L (7-40) H Alkaline Phosphatase 71 U/L (46-116) Aspartate Amino Transferase (AST) 79 U/L (13-40) H Total Bilirubin 0.4 mg/dL (0.2-1.0) HgA1c, TSH Test 07/10/24 05:48 Hemoglobin A1c 6.0 % A1C (<5.7) H Microbiology Microbiology Date/Time Source Procedure Growth Status 07/10/24 03:10 Nose MRSA Screen - Final Complete 07/09/24 18:04 Blood Blood Culture - Preliminary NO GROWTH AFTER 24 HOURS OF INCUBATION. Resulted Labs and/or images reviewed: Labs reviewed by me Assessment/Plan Assessment/Plan Acute on chronic systolic heart failure Generalized weakness Abdominal pain Elevated liver enzymes Acute renal injury COPD Continuing current management. Continuing with nebulizer. Waiting for radio station audio engineer to see the patient. Per GI specialist the patient can have conservative treatment with Protonix. Patient needs to follow up with GI specialist as outpatient. Also if the patient had any procedure done as outpatient the patient needs a cardiac clearance due to low ejection fraction at 15% Continuing with IV fluid. Continuing to monitor liver function. This medical document was created using an electronic medical record system with [employer] direct computerized dictation system. Although this document has been carefully reviewed, there may still be some phonetic and typographical errors. These areas are purely typographical due to imperfections of the software programs, and do not reflect any compromise in the patient's medical care. Plan discussed with: Patient Date of Service: Jul 10, 2024 Billing Provider: STEF GUZMAN MD Common Visit Codes: [id number] INP/OBS CARE(HIGH) STEF GUZMAN MD Jul 10, 2024 22:28
[2024-07-10] MEDS: clonazePAM 0.5 MG TAB PO SCH (22:57)
[2024-07-11] VITALS (9 sets, daily range): BP systolic 98–123; BP diastolic 64–81; PULSE 66–82; RESP 17–19; TEMP 97.1–98.2; O2SAT 95–100
[2024-07-11 04:31] LABS: Amphetamine Screen, Urine Neg (NEGATIVE); Benzodiazephine Screen, Urine Neg (NEGATIVE)
[2024-07-11 04:32] LABS: Urine Bacteria None Seen /hpf (None Seen); Urine Blood Negative /uL (Negative); Urine Clarity Clear (Clear); Urine Color Yellow (Yellow); Urine Protein, UAD Negative (Negative); Urine Specific Gravity 1.021 (1.001-1.035); Urine Squamous Epithelial Cell None Seen /hpf (<5); Urine Urobilinogen Normal (Negative); Urine WBC < 1 /HPF (0-3); Urine pH 5.5 (5.0-9.0)
[2024-07-11 04:33] LABS: Barbiturate Scree,Urine Neg (NEGATIVE); Cannabinoid Screen, Urine Neg (NEGATIVE); Cocaine Screen, Urine Neg (NEGATIVE); Opiate Scree,Urine Neg (NEGATIVE); Phencyclidine Screen, Urine Neg (NEGATIVE)
[2024-07-11] MEDS: HYDROcodone-ACET 5/325MG TAB PO PRN (05:19)
[2024-07-11] MEDS: NICOTINE 14 MG/24HR TOPICAL PATCH TD SCH (09:17)
--- NOTE | 2024-07-11 09:54 | DVHINCON2 ---
Date of service: Jul 11, 2024 History of Present Illness 63 yo M with NICM admitted for sob, and abd pain. pt seen by GI. bnp is elevated. he was dc'ed home with only 20 mg lasix daily Past Medical History reviewed Family History: Alcoholism G8 FATHER, , Cause: AR (myocardial infarction), Onset:40s - FH: arrhythmia G8 MOTHER FH: breast cancer G8 SISTER, , Cause: AR (myocardial infarction) FH: diabetes mellitus FH: heart attack G8 FATHER, , Cause: AR (myocardial infarction) G8 BROTHER, , Cause: AR (myocardial infarction) Family history: Cardiovascular disease G8 FATHER, , Cause: AR (myocardial infarction), Onset:40s - Family history: Diabetes mellitus G8 MOTHER, Onset:40s - G8 FATHER, , Cause: AR (myocardial infarction) G8 SISTER, , Cause: AR (myocardial infarction) Allergies: Coded Allergies: Morphine (Unverified Allergy, Unknown, 04/18/22) SEVERE BRADYCARDIA Home Meds Active Scripts Carvedilol (COREG) 3.125 Mg Tab, 3.125 MG PO Q12HR for 30 Days, #60 TAB Prov:MANJULA LAN LAUNDRY HOUSEKEEPING AIDE 07/05/24 Furosemide (Lasix) 20 Mg Tb, 1 TAB PO DAILY, #90 TAB 1 Refill Prov:EUN LI MD 09/16/23 Sacubitril-Valsartan (Entresto 24-26 mg) 1 Tab Tab, 1 TAB PO BID, #180 TAB Prov:EUN LI MD 09/16/23 Reported Medications Albuterol Sulfate (Albuterol Sulfate Hfa) 108 Mcg/Act Aer 07/09/24 Clonazepam (Clonazepam) 0.5 Mg Tab, 1 TAB PO BID for 30 Days, #60 07/04/24 Levothyroxine Sodium (Levothyroxine Sodium) 125 Mcg Tab, 1 TAB PO DAILY for 60 Days, #60 07/04/24 Venlafaxine Hcl (Venlafaxine Hcl Er) 150 Mg Tab, 1 TAB PO DAILY for 30 Days, #30 07/04/24 Dapagliflozin Propanediol (Farxiga) 10 Mg Tab, 1 TAB PO DAILY for 30 Days, #30 09/14/23 Tamsulosin Hcl (Tamsulosin Hcl) 0.4 Mg Cap, 0.8 MG PO DAILY AFTER MEAL, MG 09/14/23 Losartan Potassium (Losartan Potassium) 25 Mg Tab, 1 TAB PO DAILY, #90 TAB 1 Refill 04/18/22 Discontinued Reported Medications Carvedilol (Carvedilol) 6.25 Mg Tab, 1 TAB PO BIDWM, TAB 09/14/23 Current Medications Current Medications Medications (Trade) Dose Ordered Sig/Manuel Route PRN Reason Start Time Stop Time Status Last Admin Losartan Potassium (Cozaar Tablet) 25 mg DAILY PO 07/10/24 10:00 07/10/24 09:33 Furosemide (Lasix Injection) 40 mg DAILY IV 07/10/24 10:00 07/10/24 15:53 DC 07/10/24 09:33 Aspirin 81 mg DAILY PO 07/10/24 10:00 07/11/24 09:15 Tamsulosin HCl (Flomax) 0.4 mg QPM PO 07/10/24 18:00 07/10/24 17:39 Clonazepam (KlonoPIN TABLET) 0.5 mg BID PO 07/10/24 22:00 07/11/24 09:15 Pantoprazole Sodium (Protonix) 40 mg DAILY IV 07/11/24 10:00 Furosemide (Lasix Injection) 40 mg DAILY IV 07/11/24 10:00 Nicotine (Nicoderm 14MG/ 24HR) 1 patch DAILY TD 07/11/24 10:00 07/11/24 09:17 Review of Systems 10 pt ros otherwise negative Vital Signs Vital Signs Date Time Temp Pulse Resp B/P (MAP) Pulse Ox O2 Delivery O2 Flow Rate FiO2 07/11/24 05:00 98.2 66 18 110/71 (84) 98 98.2 07/10/24 20:00 Room Air* 0 21 Physical Exam nad s1 s2 rrr ctab soft nt/nd trivial edema Labs/Diagnostic Data Labs Test 07/11/24 03:37 07/10/24 21:10 07/10/24 05:48 07/09/24 21:12 Range/Units Urine Color Yellow Yellow Urine Clarity Clear Clear Urine pH 5.5 5.0-9.0 Urine Specific [place] 1.021 1.001-1.035 Urine Protein Negative Negative Urine Ketones Negative Negative Urine Blood Negative Negative /uL Urine Nitrite Negative Negative Urine Bilirubin Negative Negative Urine Urobilinogen Normal Negative mg/dL Urine Leukocyte Esterase Negative Negative /uL Urine RBC <1 0 - 3 /hpf Urine Microscopic WBC < 1 0-3 /HPF Urine Squamous Epithelial Cells None seen <5 /hpf Urine Bacteria None seen None Seen /hpf Urine Glucose Normal Normal mg/dL Urine Opiates Screen Neg NEGATIVE Urine Fentanyl Screen Neg NEGATIVE Urine Barbiturates Screen Neg NEGATIVE Urine Phencyclidine Screen Neg NEGATIVE Urine Amphetamines Screen Neg NEGATIVE Urine Benzodiazepines Screen Neg NEGATIVE Urine Cocaine Screen Neg NEGATIVE Urine Cannabinoids Screen Neg NEGATIVE POC Glucose 102 70-106 mg/dl White Blood Count 7.0 4.4-10.8 10^3/uL Red Blood Count 4.54 4.5-5.90 10^6/uL Hemoglobin 13.3 L 13.5-17.5 g/dL Hematocrit 41.8 # 41.0-53.0 % Mean Corpuscular Volume 92.0 80.0-100.0 fL Mean Corpuscular Hemoglobin 29.4 28.0-32.0 pg Mean Corpuscular Hemoglobin Concent 31.9 L 32.0-36.0 g/dL Red Cell Distribution Width 14.9 H 11.8-14.3 % Platelet Count 202 140-450 10^3/uL Mean Platelet Volume 9.1 6.9-10.8 fL Neutrophils (%) (Auto) 52.9 37.0-80.0 % Lymphocytes (%) (Auto) 25.6 10.0-50.0 % Monocytes (%) (Auto) 12.4 H 0.0-12.0 % Eosinophils (%) (Auto) 7.8 H 0.0-7.0 % Basophils (%) (Auto) 1.3 0.0-2.0 % Neutrophils # (Auto) 3.7 1.6-8.6 10 ^3/uL Lymphocytes # (Auto) 1.8 0.4-5.4 10 ^3/uL Monocytes # (Auto) 0.9 0-1.3 10 ^3/uL Eosinophils # (Auto) 0.5 0-0.8 10 ^3/uL Basophils # (Auto) 0.1 0-0.2 10 ^3/uL Nucleated Red Blood Cells 0.1 % Sodium Level 141 136-145 mmol/L Potassium Level 4.1 3.5-5.1 mmol/L Chloride Level 107 98-107 mmol/L Carbon Dioxide Level 22 20-31 mmol/L Anion Gap 12 5-15 Blood Urea Nitrogen 29 H 9-23 mg/dL Creatinine 1.76 H 0.700-1.30 mg/dL Glomerular Filtration Rate Calc 43 >90 mL/min BUN/Creatinine Ratio 16.5 10.0-20.0 Serum Glucose 69 L 74-106 mg/dL Hemoglobin A1c 6.0 H <5.7 % A1C Calcium Level 9.1 8.7-10.4 mg/dL Magnesium Level 2.0 1.6-2.6 mg/dL Total Bilirubin 0.4 0.2-1.0 mg/dL Aspartate Amino Transferase (AST) 79 H 13-40 U/L Alanine Aminotransferase (ALT) 128 H 7-40 U/L Alkaline Phosphatase 71 46-116 U/L Total Protein 5.8 5.7-8.2 g/dL Albumin 3.6 3.2-4.8 g/dL Troponin I High Sensitivity 39 </=54 ng/L Test 07/09/24 18:04 Range/Units Lactic Acid Level 1.2 0.4-2.0 mmol/L B-Type Natriuretic Peptide 1918.74 0-100 pg/mL Lipase 38 12-53 U/L Thyroid Stimulating Hormone (TSH) 4.82 H 0.55-4.78 uIU/mL Microbiology Date/Time Source Procedure Growth Status 07/10/24 03:10 Nose MRSA Screen - Final Complete 07/09/24 18:04 Blood Blood Culture - Preliminary NO GROWTH AFTER 24 HOURS OF INCUBATION. Resulted Assessment acute on chronic class IV systolic HF ckd htn HL Plan/Recommendation cont farxiga cont lasix cont HF meds po metolazone fu GI recs on dc' start lasix 40 mg po bid pt has dietary issues, ate lot of pizza prior to admit, discussed low salt diet Plan discussed with: Patient DEREK SERRANO MD Jul 11, 2024 09:54
[2024-07-11] MEDS: FUROSEMIDE 40 MG/4 ML VIAL IV SCH (10:00)
[2024-07-11] MEDS: PANTOPRAZOLE 40 MG/10 ML VIAL INJ IV SCH (10:30)
[2024-07-11 10:42] LABS: Hepatitis A Ab IgM Negative; Hepatitis B Core IgM Negative (Negative); Hepatitis B Surface Antigen Negative (Negative); Hepatitis C Antibody Negative (Negative)
[2024-07-11] MEDS ORDERED: FURO1TAB31 PO (11:14)
[2024-07-11] MEDS ORDERED: POTA-228 PO (11:14)
[2024-07-11] MEDS: metOLazone 5 MG TAB PO ONE (11:15)
--- NOTE | 2024-07-11 11:17 | DVHDS2 ---
Discharge Summary Date of Admission Jul 09, 2024 at 20:18 Date of Discharge: Jul 11, 2024 Labs/Diagnostic Data: Laboratory Results Test 07/11/24 03:37 07/10/24 21:10 07/10/24 05:48 07/09/24 21:12 Urine Color Yellow (Yellow) Urine Clarity Clear (Clear) Urine pH 5.5 (5.0-9.0) Urine Specific [place] 1.021 (1.001-1.035) Urine Protein Negative (Negative) Urine Ketones Negative (Negative) Urine Blood Negative /uL (Negative) Urine Nitrite Negative (Negative) Urine Bilirubin Negative (Negative) Urine Urobilinogen Normal mg/dL (Negative) Urine Leukocyte Esterase Negative /uL (Negative) Urine RBC <1 /hpf (0 - 3) Urine Microscopic WBC < 1 /HPF (0-3) Urine Squamous Epithelial Cells None seen /hpf (<5) Urine Bacteria None seen /hpf (None Seen) Urine Glucose Normal mg/dL (Normal) Urine Opiates Screen Neg (NEGATIVE) Urine Fentanyl Screen Neg (NEGATIVE) Urine Barbiturates Screen Neg (NEGATIVE) Urine Phencyclidine Screen Neg (NEGATIVE) Urine Amphetamines Screen Neg (NEGATIVE) Urine Benzodiazepines Screen Neg (NEGATIVE) Urine Cocaine Screen Neg (NEGATIVE) Urine Cannabinoids Screen Neg (NEGATIVE) POC Glucose 102 mg/dl (70-106) White Blood Count 7.0 10^3/uL (4.4-10.8) Red Blood Count 4.54 10^6/uL (4.5-5.90) Hemoglobin 13.3 g/dL (13.5-17.5) Hematocrit 41.8 % (41.0-53.0) Mean Corpuscular Volume 92.0 fL (80.0-100.0) Mean Corpuscular Hemoglobin 29.4 pg (28.0-32.0) Mean Corpuscular Hemoglobin Concent 31.9 g/dL (32.0-36.0) Red Cell Distribution Width 14.9 % (11.8-14.3) Platelet Count 202 10^3/uL (140-450) Mean Platelet Volume 9.1 fL (6.9-10.8) Neutrophils (%) (Auto) 52.9 % (37.0-80.0) Lymphocytes (%) (Auto) 25.6 % (10.0-50.0) Monocytes (%) (Auto) 12.4 % (0.0-12.0) Eosinophils (%) (Auto) 7.8 % (0.0-7.0) Basophils (%) (Auto) 1.3 % (0.0-2.0) Neutrophils # (Auto) 3.7 10 ^3/uL (1.6-8.6) Lymphocytes # (Auto) 1.8 10 ^3/uL (0.4-5.4) Monocytes # (Auto) 0.9 10 ^3/uL (0-1.3) Eosinophils # (Auto) 0.5 10 ^3/uL (0-0.8) Basophils # (Auto) 0.1 10 ^3/uL (0-0.2) Nucleated Red Blood Cells 0.1 % Sodium Level 141 mmol/L (136-145) Potassium Level 4.1 mmol/L (3.5-5.1) Chloride Level 107 mmol/L (98-107) Carbon Dioxide Level 22 mmol/L (20-31) Anion Gap 12 (5-15) Blood Urea Nitrogen 29 mg/dL (9-23) Creatinine 1.76 mg/dL (0.700-1.30) Glomerular Filtration Rate Calc 43 mL/min (>90) BUN/Creatinine Ratio 16.5 (10.0-20.0) Serum Glucose 69 mg/dL (74-106) Hemoglobin A1c 6.0 % A1C (<5.7) Calcium Level 9.1 mg/dL (8.7-10.4) Magnesium Level 2.0 mg/dL (1.6-2.6) Total Bilirubin 0.4 mg/dL (0.2-1.0) Aspartate Amino Transferase (AST) 79 U/L (13-40) Alanine Aminotransferase (ALT) 128 U/L (7-40) Alkaline Phosphatase 71 U/L (46-116) Total Protein 5.8 g/dL (5.7-8.2) Albumin 3.6 g/dL (3.2-4.8) Hepatitis A IgM Antibody Negative Hepatitis B Surface Antigen Negative (Negative) Hepatitis B Core IgM Antibody Negative (Negative) Hepatitis C Antibody Negative (Negative) Troponin I High Sensitivity 39 ng/L (</=54) Test 07/09/24 18:04 Lactic Acid Level 1.2 mmol/L (0.4-2.0) B-Type Natriuretic Peptide 1918.74 pg/mL (0-100) Lipase 38 U/L (12-53) Thyroid Stimulating Hormone (TSH) 4.82 uIU/mL (0.55-4.78) Other Laboratory Tests 07/10/24 05:48 Final Diagnosis/Problems List CHF EXAC-INCREASE LASIX 40MG TWICE A DAY ABD PAIN- MOST LIKELY VIRAL- RESOLVED Discharge Disposition: Home Discharge Instruct/Medications Diet: Cardiac 2g Na,low cholest Activity: No Restrictions, As Tolerated Follow Up/Referral: 1 WEEK HAVE PCP CHECK LABS Discharge Statement: "Patient was advised to return to the ER or call 911 if any headaches, dizziness, shortness of breath, chest pain, abdominal pain, bleeding, fevers, or worsening of medical condition. Patient was counseled about treatment plan, medications, possible side effects, patientverbalized understanding. All questions were answered to the best of my ability. This discharge took greater then 30 minutes in planning, reviewing documentation, counseling the patient, and discussing with other team members." ASSESSMENT ASSESSMENT Assessment CHF EXAC-INCREASE LASIX 40MG TWICE A DAY ABD PAIN- MOST LIKELY VIRAL- RESOLVED MANJULA LAN NP Jul 11, 2024 11:17
--- NOTE | 2024-07-11 11:54 | DVHPN2 ---
Progress Note - Dictate Date Seen: Jul 11, 2024 Medical Necessity Reason Pt with a Central, PICC or Fol: No vital signs Vital Sign Date Time Temp Pulse Resp B/P (MAP) Pulse Ox O2 Delivery O2 Flow Rate FiO2 07/11/24 10:00 71 98/71 07/11/24 09:00 97.3 17 96 97.3 07/10/24 20:00 Room Air* 0 21 Total Intake and Output 07/10/24 07/10/24 07/11/24 15:00 23:00 07:00 Intake Total 1000 ml 700 ml Output Total 2700 ml 600 ml Balance -1700 ml 100 ml medications Current Medications Medications Dose Ordered Sig/Manuel Route Start Time Stop Time Status Last Admin Dose Admin Losartan Potassium 25 mg DAILY PO 07/10/24 10:00 07/10/24 09:33 25 MG Ibuprofen 600 mg Q6HP PRN PO 07/09/24 20:30 07/10/24 03:11 600 MG Levothyroxine Sodium 100 mcg QAM@0600 PO 07/10/24 06:00 07/11/24 06:16 100 MCG Carvedilol 3.125 mg Q12HR PO 07/09/24 22:00 07/10/24 09:32 3.125 MG Aspirin 81 mg DAILY PO 07/10/24 10:00 07/11/24 09:15 81 MG Tamsulosin HCl 0.4 mg QPM PO 07/10/24 18:00 07/10/24 17:39 0.4 MG Diagnostic Test (Pha) 1 strip ACHS 07/09/24 22:00 07/11/24 06:17 1 STRIP Insulin Human Regular ACHS SC 07/09/24 22:00 Dextrose 50 ml UD PRN IV 07/09/24 20:30 Sodium Chloride 10 ml Q8HR IV 07/09/24 22:00 07/11/24 06:17 10 ML Acetaminophen/ Hydrocodone Bitart 1 tab Q4HP PRN PO 07/09/24 20:30 07/11/24 05:19 1 TAB Ondansetron HCl 4 mg Q4HP PRN IV 07/09/24 20:30 Docusate Sodium 100 mg BIDPRN PRN PO 07/09/24 20:30 Nitroglycerin 0.4 mg Q5MINP PRN SL 07/09/24 20:30 Albuterol 2.5 mg Q4HPRN PRN NEB 07/09/24 20:45 Cancel Ipratropium [place] 0.5 mg Q4HPRN PRN NEB 07/09/24 20:45 Cancel Levothyroxine Sodium 25 mcg QAM@0600 PO 07/10/24 06:00 07/11/24 06:16 25 MCG Clonazepam 0.5 mg BID PO 07/10/24 22:00 07/11/24 09:15 0.5 MG Pantoprazole Sodium 40 mg DAILY IV 07/11/24 10:00 07/11/24 10:30 40 MG Furosemide 40 mg DAILY IV 07/11/24 10:00 Nicotine 1 patch DAILY TD 07/11/24 10:00 07/11/24 09:17 1 PATCH objective General Appearance: alert, no distress HEENT: EOMI, PERRLA, normal external inspect of ears, no icterus, no nasal drainage Neck: no carotid bruit, no jugular venous distention (JVD), no lymphadenopathy Chest: normal thorax Respiratory: clear to auscultation, normal air movement Cardiovascular: regular rate and rhythm, no diastolic murmur, no jugular venous distention (JVD), no rub, no systolic murmur Abdominal: soft, no hepatomegaly, no mass, no splenomegaly, no tenderness Genitourinary: grossly normal external Musculoskeletal: no joint tenderness, no swelling Extremities: normal pulses, no calf tenderness, no clubbing, no cyanosis, no edema Skin: no bruising, no jaundice, no rash Neurological: alert, No focal deficit laboratory and microbiology Laboratory Tests 07/10/24 05:48 Test 07/10/24 05:48 Range/Units Serum Glucose 69 L 74-106 mg/dL Problem List 1. Acute on chronic systolic heart failure EF of 30% Cardiology consult, IV diuretics, fluid restriction 2. Elevated liver enzymes likely secondary to congestion from CHF IV diuretics, rule out hepatitis 3. MÓNICA on CKD 3A Monitor renal function 4. COPD with acute exacerbation Med neb treatments 5. Chest pain Cardiac consult, monitor EKG 6. Abdominal pain likely from gastritis PPI, GI consult 7. active smoker Counseled to stop smoking Assessment/Plan Subjective Patient is awake and alert. Objective Patient was seen for discharge by cardiology today however patient was seen by a resident care manager rn who stated they were going to hold discharge. Patient was admitted for lower abdominal pain most likely related to gastric enteritis. Patient no longer has complaints of diarrhea or abdominal pain at this time. CT imaging is negative for any acute findings. Patient was found to have acute on chronic systolic CHF exacerbation. Patient was seen by cardiology. Patient is currently on diuretics. Plan Monitor renal function. Patient has acute kidney injury most likely vasomotor nephropathy superimposed on CKD stage III. Repeat labs ordered for a.m. Continue diuretic for CHF exacerbation. Discharge planning. Plan discussed with: Patient, Other MANJULA LAN NP Jul 11, 2024 11:54
--- NOTE | 2024-07-11 15:36 | DVHPN2 ---
Subjective in bed resting Reviewed: Care Plan Changes from previous H/P or p: No Changes Eyes: No Pain, No Vision change, No Conjunctivae inflammation, No Eyelid inflammation, No Other, No Redness ENT: No Ear pain, No Ear discharge, No Nose pain, No Nose discharge, No Nose congestion, No Mouth pain, No Mouth swelling, No Throat pain, No Throat swelling, No Other Cardiovascular: Chest Pain; No Palpitations, No Orthopnea, No Paroxysmal Noc. Dyspnea, No Edema, No Lt Headedness, No Other Respiratory: No Cough, No Dry; Shortness of breath; No SOB with excertion, No Wheezing, No Hemoptysis, No Pleuritic Pain, No Sputum, No Other Gastrointestinal: Nausea, Vomiting, Abdominal Pain, Diarrhea; No Constipation, No Melena, No Hematochezia, No Other Genitourinary: No Dysuria, No Frequency, No Incontinence, No Hematuria, No Retention, No Other Musculoskeletal: No other, No neck pain, No shoulder pain, No arm pain, No back pain, No hand pain, No leg pain, No foot pain Skin: No Rash, No Lesions, No Jaundice, No Bruising, No Other Objective Vitals Vital Signs Date Time Temp Pulse Resp B/P (MAP) Pulse Ox O2 Delivery O2 Flow Rate FiO2 07/11/24 13:00 97.1 77 17 101/64 (76) 100 97.1 07/11/24 10:00 Room Air 07/11/24 10:00 0 21 Intake/Output Intake and Output 07/11/24 07:00 Intake Total 1700 ml Output Total 3300 ml Balance -1600 ml Intake Oral 1700 ml Output Urine Total 3300 ml General Appearance: Alert, Oriented X3 HEENT: Atraumatic Lungs: Clear to auscultation Cardiovascular: Regular rate, Normal S1, Normal S2 Medications Current Medications Medications Dose Ordered Sig/Manuel Route Start Time Stop Time Status Last Admin Dose Admin Losartan Potassium 25 mg DAILY PO 07/10/24 10:00 07/10/24 09:33 25 MG Ibuprofen 600 mg Q6HP PRN PO 07/09/24 20:30 07/10/24 03:11 600 MG Levothyroxine Sodium 100 mcg QAM@0600 PO 07/10/24 06:00 07/11/24 06:16 100 MCG Carvedilol 3.125 mg Q12HR PO 07/09/24 22:00 07/10/24 09:32 3.125 MG Aspirin 81 mg DAILY PO 07/10/24 10:00 07/11/24 09:15 81 MG Tamsulosin HCl 0.4 mg QPM PO 07/10/24 18:00 07/10/24 17:39 0.4 MG Diagnostic Test (Pha) 1 strip ACHS 07/09/24 22:00 07/11/24 06:17 1 STRIP Insulin Human Regular ACHS SC 07/09/24 22:00 Dextrose 50 ml UD PRN IV 07/09/24 20:30 Sodium Chloride 10 ml Q8HR IV 07/09/24 22:00 07/11/24 14:00 10 ML Acetaminophen/ Hydrocodone Bitart 1 tab Q4HP PRN PO 07/09/24 20:30 07/11/24 05:19 1 TAB Ondansetron HCl 4 mg Q4HP PRN IV 07/09/24 20:30 Docusate Sodium 100 mg BIDPRN PRN PO 07/09/24 20:30 Nitroglycerin 0.4 mg Q5MINP PRN SL 07/09/24 20:30 Albuterol 2.5 mg Q4HPRN PRN NEB 07/09/24 20:45 Cancel Ipratropium [place] 0.5 mg Q4HPRN PRN NEB 07/09/24 20:45 Cancel Levothyroxine Sodium 25 mcg QAM@0600 PO 07/10/24 06:00 07/11/24 06:16 25 MCG Clonazepam 0.5 mg BID PO 07/10/24 22:00 07/11/24 09:15 0.5 MG Pantoprazole Sodium 40 mg DAILY IV 07/11/24 10:00 07/11/24 10:30 40 MG Furosemide 40 mg DAILY IV 07/11/24 10:00 Nicotine 1 patch DAILY TD 07/11/24 10:00 07/11/24 09:17 1 PATCH Laboratory Results Laboratory Tests 07/10/24 05:48 Cardiac Markers Test 07/11/24 13:20 B-Type Natriuretic Peptide 746.47 pg/mL (0-100) Urinalysis Test 07/11/24 03:37 Urine Color Yellow (Yellow) Urine Clarity Clear (Clear) Urine pH 5.5 (5.0-9.0) Urine Specific [place] 1.021 (1.001-1.035) Urine Protein Negative (Negative) Urine Ketones Negative (Negative) Urine Blood Negative /uL (Negative) Urine Nitrite Negative (Negative) Urine Bilirubin Negative (Negative) Urine Urobilinogen Normal mg/dL (Negative) Urine Leukocyte Esterase Negative /uL (Negative) Urine RBC <1 /hpf (0 - 3) Urine Microscopic WBC < 1 /HPF (0-3) Urine Squamous Epithelial Cells None seen /hpf (<5) Urine Bacteria None seen /hpf (None Seen) Urine Glucose Normal mg/dL (Normal) Microbiology Microbiology Date/Time Source Procedure Growth Status 07/10/24 03:10 Nose MRSA Screen - Final Complete 07/09/24 18:04 Blood Blood Culture - Preliminary NO GROWTH AFTER 24 HOURS OF INCUBATION. Resulted Assessment/Plan Assessment/Plan #Acute on chronic systolic heart failure Continue IV lasix monitor electrolytes #Generalized weakness #Elevated liver enzymes #Acute renal injury 1.3>1.7 monitor daily BMP #COPD with acute exacerbation Plan discussed with: Patient Date of Service: Jul 11, 2024 Billing Provider: SOLIS KATZ MD Common Visit Codes: [id number] INP/OBS CARE(HIGH) SOLIS KATZ MD Jul 11, 2024 15:36
--- NOTE | 2024-07-11 16:28 | DVHPN2 ---
Progress Note Date Seen: Jul 11, 2024 Resident Creating Document: LETY LOPES RESIDENT Medical Necessity Reason Pt with a Central, PICC or Fol: No Subjective Review of Systems Patient seen and examined at bedside. No new complaints. No abdominal pain, no GI symptoms. Objective vital signs Vital Sign Date Time Temp Pulse Resp B/P (MAP) Pulse Ox O2 Delivery O2 Flow Rate FiO2 07/11/24 13:00 97.1 77 17 101/64 (76) 100 97.1 07/11/24 10:00 Room Air 07/11/24 10:00 0 21 Total Intake and Output 07/10/24 07/10/24 07/11/24 15:00 23:00 07:00 Intake Total 1000 ml 700 ml Output Total 2700 ml 600 ml Balance -1700 ml 100 ml medications Current Medications Medications Dose Ordered Sig/Manuel Route Start Time Stop Time Status Last Admin Dose Admin Losartan Potassium 25 mg DAILY PO 07/10/24 10:00 07/10/24 09:33 25 MG Ibuprofen 600 mg Q6HP PRN PO 07/09/24 20:30 07/10/24 03:11 600 MG Levothyroxine Sodium 100 mcg QAM@0600 PO 07/10/24 06:00 07/11/24 06:16 100 MCG Carvedilol 3.125 mg Q12HR PO 07/09/24 22:00 07/10/24 09:32 3.125 MG Aspirin 81 mg DAILY PO 07/10/24 10:00 07/11/24 09:15 81 MG Tamsulosin HCl 0.4 mg QPM PO 07/10/24 18:00 07/10/24 17:39 0.4 MG Diagnostic Test (Pha) 1 strip ACHS 07/09/24 22:00 07/11/24 06:17 1 STRIP Insulin Human Regular ACHS SC 07/09/24 22:00 Dextrose 50 ml UD PRN IV 07/09/24 20:30 Sodium Chloride 10 ml Q8HR IV 07/09/24 22:00 07/11/24 14:00 10 ML Acetaminophen/ Hydrocodone Bitart 1 tab Q4HP PRN PO 07/09/24 20:30 07/11/24 05:19 1 TAB Ondansetron HCl 4 mg Q4HP PRN IV 07/09/24 20:30 Docusate Sodium 100 mg BIDPRN PRN PO 07/09/24 20:30 Nitroglycerin 0.4 mg Q5MINP PRN SL 07/09/24 20:30 Albuterol 2.5 mg Q4HPRN PRN NEB 07/09/24 20:45 Cancel Ipratropium [place] 0.5 mg Q4HPRN PRN NEB 07/09/24 20:45 Cancel Levothyroxine Sodium 25 mcg QAM@0600 PO 07/10/24 06:00 07/11/24 06:16 25 MCG Clonazepam 0.5 mg BID PO 07/10/24 22:00 07/11/24 09:15 0.5 MG Pantoprazole Sodium 40 mg DAILY IV 07/11/24 10:00 07/11/24 10:30 40 MG Furosemide 40 mg DAILY IV 07/11/24 10:00 Nicotine 1 patch DAILY TD 07/11/24 10:00 07/11/24 09:17 1 PATCH Examination General Appearance: Cooperative. Well developed. Well nourished. NAD Head Exam: Normal inspection Neck Exam: Normal inspection. Non-tender. Normal alignment Pulmonary/Respiratory: Chest non-tender. Clear bilateral breath sounds Cardiovascular/Chest: Regular rate and rhythm. No murmurs. No JVD. Peripheral Pulses: 2+ Radial (R). 2+ Radial (L). 2+ Pedal (R). 2+ Pedal (L) Abdominal Exam: Normal bowel sounds. Soft. Nontender. No hepatospenomegaly. No masses Ankle Exam: Negative ankle edema Lower extremities: Negative lower extremity edema Neuro/Mental Status: A&O x4. Coherent Thoughts/Psych: Normal thought pattern. Appropriate mood and affect. Good judgement and insight Appearance: In no acute distress Skin Exam: Normal inspection. Normal color. Warm. Dry laboratory and microbiology Laboratory Tests 07/10/24 05:48 Test 07/10/24 05:48 Range/Units Serum Glucose 69 L 74-106 mg/dL Microbiology Date/Time Source Procedure Growth Status 07/10/24 03:10 Nose MRSA Screen - Final Complete 07/09/24 18:04 Blood Blood Culture - Preliminary NO GROWTH AFTER 24 HOURS OF INCUBATION. Resulted Problem List/Assessment/Plan Problem List/Assessment/Plan Acute Diarrhea Acute on chronic systolic heart failure Transaminitis MÓNICA Plan/recommendation Dr. Ronald -stable, no active GI symptoms -continue to monitor liver function tests. -conservative management -Protonix 40 mg p.o. daily -advised to follow up in GI clinic for elective panendoscopy -will need cardiac clearance given underlying CHF -we will continue following this patient Plan discussed with: Patient, Other (RN) LETY LOPES RESIDENT Jul 11, 2024 16:28
[2024-07-12] MEDS: ONDANSETRON HCL 4 MG/2 ML VIAL IV PRN (04:14)
[2024-07-12 05:00] VITALS: BP 105/66; PULSE 76; RESP 18; TEMP 97.6; O2SAT 99
[2024-07-12 07:42] LABS: Basophils # (auto) 0.1 10 ^3/uL (0-0.2); Basophils % (auto) 1.1 % (0.0-2.0); Eosinophils # (auto) 0.6 10 ^3/uL (0-0.8); Hematocrit 43.2 % (41.0-53.0); Hemoglobin 14.3 g/dL (13.5-17.5); Lymphocytes # (auto) 1.2 10 ^3/uL (0.4-5.4); Lymphocytes % (auto) 17.9 % (10.0-50.0); Mean Corpuscular Hemoglobin 30.6 pg (28.0-32.0); Mean Corpuscular Hgb Conc. 33.2 g/dL (32.0-36.0); Monocytes # (auto) 0.6 10 ^3/uL (0-1.3); Monocytes % (auto) 8.7 % (0.0-12.0); Neutrophils # (auto) 4.4 10 ^3/uL (1.6-8.6); Neutrophils % (auto) 64.3 % (37.0-80.0); Nucleated Red Blood Cells % 0.1 %; Platelet Count (auto) 231 10^3/uL (140-450); Red Blood Cells 4.69 10^6/uL (4.5-5.90); Red Cell Distribution Width 14.7 % (11.8-14.3); White Blood Cell 6.9 10^3/uL (4.4-10.8)
[2024-07-12 07:51] LABS: Anion Gap 8 (5-15); Calcium 9.5 mg/dL (8.7-10.4); Carbon Dioxide 28 mmol/L (20-31); Chloride 104 mmol/L (98-107); Potassium 4.2 mmol/L (3.5-5.1); Sodium 140 mmol/L (136-145)
[2024-07-12 07:58] LABS: BUN/Creatinine Ratio 23.2 (10.0-20.0); Magnesium 2.3 mg/dL (1.6-2.6)
[2024-07-12 08:00] VITALS: PULSE 71; RESP 18; O2SAT 95
[2024-07-12 08:11] LABS: Blood Urea Nitrogen 35 mg/dL (9-23); Glucose 108 mg/dL (74-106)
[2024-07-12 08:50] VITALS: BP 107/71; PULSE 71; RESP 18; TEMP 97.8; O2SAT 95
--- NOTE | 2024-07-12 09:23 | CONS ---
Pharmacy Clinical Information: From Heart Failure Fallout Report on CQM Application, Good Almeida is a 63 year old male with PMH of CAD, CHF, CKF, COPD, TN, HTN, GERD, thyroid, and high lipids. His home medications for heart failure include carvedilol, dapagliflozin, losartan, and furosemide. His inpatient medications include carvedilol, losartan, and furosemide. Consider resuming SGLT2i once MÓNICA resolves and renal function is stable. Consider switching carvedilol to metoprolol succinate due to COPD. Consider initiation of MRA and statin at next follow up outpatient transmission system operator visit if appropriate based on K, eGFR, lipid panel, and LFTs. DOMINGUEZ JACOBO PHARMACIST Jul 12, 2024 09:23
--- NOTE | 2024-07-12 09:29 | ECG ---
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
[2024-07-12 10:00] VITALS: O2SAT 99
[2024-07-12] MEDS ORDERED: MET25T PO (10:55)
[2024-07-12] MEDS ORDERED: ASPI-325 PO (10:55)
--- NOTE | 2024-07-12 11:00 | DVHDS2 ---
Discharge Summary Date of Admission Jul 09, 2024 at 20:18 Date of Discharge: Jul 11, 2024 Labs/Diagnostic Data: Laboratory Results Test 07/12/24 06:25 07/12/24 06:23 07/11/24 13:20 07/11/24 03:37 White Blood Count 6.9 10^3/uL (4.4-10.8) Red Blood Count 4.69 10^6/uL (4.5-5.90) Hemoglobin 14.3 g/dL (13.5-17.5) Hematocrit 43.2 % (41.0-53.0) Mean Corpuscular Volume 92.0 fL (80.0-100.0) Mean Corpuscular Hemoglobin 30.6 pg (28.0-32.0) Mean Corpuscular Hemoglobin Concent 33.2 g/dL (32.0-36.0) Red Cell Distribution Width 14.7 % (11.8-14.3) Platelet Count 231 10^3/uL (140-450) Mean Platelet Volume 8.8 fL (6.9-10.8) Neutrophils (%) (Auto) 64.3 % (37.0-80.0) Lymphocytes (%) (Auto) 17.9 % (10.0-50.0) Monocytes (%) (Auto) 8.7 % (0.0-12.0) Eosinophils (%) (Auto) 8.0 % (0.0-7.0) Basophils (%) (Auto) 1.1 % (0.0-2.0) Neutrophils # (Auto) 4.4 10 ^3/uL (1.6-8.6) Lymphocytes # (Auto) 1.2 10 ^3/uL (0.4-5.4) Monocytes # (Auto) 0.6 10 ^3/uL (0-1.3) Eosinophils # (Auto) 0.6 10 ^3/uL (0-0.8) Basophils # (Auto) 0.1 10 ^3/uL (0-0.2) Nucleated Red Blood Cells 0.1 % Sodium Level 140 mmol/L (136-145) Potassium Level 4.2 mmol/L (3.5-5.1) Chloride Level 104 mmol/L (98-107) Carbon Dioxide Level 28 mmol/L (20-31) Anion Gap 8 (5-15) Blood Urea Nitrogen 35 mg/dL (9-23) Creatinine 1.51 mg/dL (0.700-1.30) Glomerular Filtration Rate Calc 51 mL/min (>90) BUN/Creatinine Ratio 23.2 (10.0-20.0) Serum Glucose 108 mg/dL (74-106) Calcium Level 9.5 mg/dL (8.7-10.4) Magnesium Level 2.3 mg/dL (1.6-2.6) POC Glucose 105 mg/dl (70-106) B-Type Natriuretic Peptide 746.47 pg/mL (0-100) Urine Color Yellow (Yellow) Urine Clarity Clear (Clear) Urine pH 5.5 (5.0-9.0) Urine Specific [place] 1.021 (1.001-1.035) Urine Protein Negative (Negative) Urine Ketones Negative (Negative) Urine Blood Negative /uL (Negative) Urine Nitrite Negative (Negative) Urine Bilirubin Negative (Negative) Urine Urobilinogen Normal mg/dL (Negative) Urine Leukocyte Esterase Negative /uL (Negative) Urine RBC <1 /hpf (0 - 3) Urine Microscopic WBC < 1 /HPF (0-3) Urine Squamous Epithelial Cells None seen /hpf (<5) Urine Bacteria None seen /hpf (None Seen) Urine Glucose Normal mg/dL (Normal) Urine Opiates Screen Neg (NEGATIVE) Urine Fentanyl Screen Neg (NEGATIVE) Urine Barbiturates Screen Neg (NEGATIVE) Urine Phencyclidine Screen Neg (NEGATIVE) Urine Amphetamines Screen Neg (NEGATIVE) Urine Benzodiazepines Screen Neg (NEGATIVE) Urine Cocaine Screen Neg (NEGATIVE) Urine Cannabinoids Screen Neg (NEGATIVE) Test 07/10/24 05:48 07/09/24 21:12 07/09/24 18:04 Hemoglobin A1c 6.0 % A1C (<5.7) Total Bilirubin 0.4 mg/dL (0.2-1.0) Aspartate Amino Transferase (AST) 79 U/L (13-40) Alanine Aminotransferase (ALT) 128 U/L (7-40) Alkaline Phosphatase 71 U/L (46-116) Total Protein 5.8 g/dL (5.7-8.2) Albumin 3.6 g/dL (3.2-4.8) Free Thyroxine (T4) Calculated 1.11 ng/dL (0.89-1.76) Hepatitis A IgM Antibody Negative Hepatitis B Surface Antigen Negative (Negative) Hepatitis B Core IgM Antibody Negative (Negative) Hepatitis C Antibody Negative (Negative) Troponin I High Sensitivity 39 ng/L (</=54) Lactic Acid Level 1.2 mmol/L (0.4-2.0) Lipase 38 U/L (12-53) Thyroid Stimulating Hormone (TSH) 4.82 uIU/mL (0.55-4.78) Other Laboratory Tests 07/12/24 06:25 Final Diagnosis/Problems List CHF EXAC-INCREASE LASIX 40MG TWICE A DAY, Coreg switched to metoprolol. Continue Losartan. Entresto on hold due to renal function. Cholesterol medicine needed but patient has elevated liver enzymes. Please follow up with PCP to start. ABD PAIN- MOST LIKELY VIRAL- RESOLVED Discharge Disposition: Home Discharge Instruct/Medications Diet: Cardiac 2g Na,low cholest Activity: No Restrictions, As Tolerated Follow Up/Referral: 1 WEEK HAVE PCP CHECK LABS Medications: Stop Coreg Start Metoprolol Start ASA Entresto on hold- please f/u with PCP Lasix increased. You have a resolving kidney injury. You need follow up labs in 1 week You need a statin for cholesterol. You have elevated liver enzymes. Please r/u with PCP Discharge Statement: "Patient was advised to return to the ER or call 911 if any headaches, dizziness, shortness of breath, chest pain, abdominal pain, bleeding, fevers, or worsening of medical condition. Patient was counseled about treatment plan, medications, possible side effects, patientverbalized understanding. All questions were answered to the best of my ability. This discharge took greater then 30 minutes in planning, reviewing documentation, counseling the patient, and discussing with other team members." ASSESSMENT ASSESSMENT Assessment CHF EXAC-INCREASE LASIX 40MG TWICE A DAY, Coreg switched to metoprolol. Continue Losartan. Entresto on hold due to renal function. Cholesterol medicine needed but patient has elevated liver enzymes. Please follow up with PCP to start. ABD PAIN- MOST LIKELY VIRAL- RESOLVED MANJULA LAN NP Jul 12, 2024 11:00
[2024-07-12 11:57] VITALS: BP 107/71; PULSE 71; RESP 18; TEMP 97.8; O2SAT 95
--- NOTE | 2024-07-12 12:20 | DVHPN2 ---
Progress Note Date Seen: Jul 12, 2024 Medical Necessity Reason Pt with a Central, PICC or Fol: No Subjective Patient reports: Feels better Objective vital signs Vital Sign Date Time Temp Pulse Resp B/P (MAP) Pulse Ox O2 Delivery O2 Flow Rate FiO2 07/12/24 11:57 97.8 71 18 95 07/12/24 10:28 107/71 07/12/24 10:00 Room Air 07/12/24 10:00 0 21 Total Intake and Output 07/11/24 07/11/24 07/12/24 15:00 23:00 07:00 Intake Total 636 ml 400 ml Output Total 400 ml 1400 ml Balance 236 ml -1000 ml medications Current Medications Medications Dose Ordered Sig/Manuel Route Start Time Stop Time Status Last Admin Dose Admin Losartan Potassium 25 mg DAILY PO 07/10/24 10:00 07/12/24 10:24 25 MG Ibuprofen 600 mg Q6HP PRN PO 07/09/24 20:30 07/10/24 03:11 600 MG Levothyroxine Sodium 100 mcg QAM@0600 PO 07/10/24 06:00 07/12/24 06:12 100 MCG Aspirin 81 mg DAILY PO 07/10/24 10:00 07/12/24 10:22 81 MG Tamsulosin HCl 0.4 mg QPM PO 07/10/24 18:00 07/11/24 18:18 0.4 MG Diagnostic Test (Pha) 1 strip ACHS 07/09/24 22:00 07/12/24 06:26 1 STRIP Insulin Human Regular ACHS SC 07/09/24 22:00 Dextrose 50 ml UD PRN IV 07/09/24 20:30 Sodium Chloride 10 ml Q8HR IV 07/09/24 22:00 07/12/24 06:12 10 ML Acetaminophen/ Hydrocodone Bitart 1 tab Q4HP PRN PO 07/09/24 20:30 07/12/24 01:57 1 TAB Ondansetron HCl 4 mg Q4HP PRN IV 07/09/24 20:30 07/12/24 11:13 4 MG Docusate Sodium 100 mg BIDPRN PRN PO 07/09/24 20:30 Nitroglycerin 0.4 mg Q5MINP PRN SL 07/09/24 20:30 Albuterol 2.5 mg Q4HPRN PRN NEB 07/09/24 20:45 Cancel Ipratropium [place] 0.5 mg Q4HPRN PRN NEB 07/09/24 20:45 Cancel Levothyroxine Sodium 25 mcg QAM@0600 PO 07/10/24 06:00 07/12/24 06:12 25 MCG Clonazepam 0.5 mg BID PO 07/10/24 22:00 07/12/24 10:22 0.5 MG Pantoprazole Sodium 40 mg DAILY IV 07/11/24 10:00 07/12/24 10:24 40 MG Furosemide 40 mg DAILY IV 07/11/24 10:00 07/12/24 10:24 40 MG Nicotine 1 patch DAILY TD 07/11/24 10:00 07/11/24 09:17 1 PATCH Metoprolol Tartrate 25 mg BID PO 07/12/24 22:00 Examination: GENERAL:Abnormal, LUNGS:Abnormal, CVS:Abnormal, ABDOMEN:Abnormal laboratory and microbiology Laboratory Tests 07/12/24 06:25 Test 07/12/24 06:25 Range/Units Serum Glucose 108 H 74-106 mg/dL Microbiology Date/Time Source Procedure Growth Status 07/10/24 03:10 Nose MRSA Screen - Final Complete 07/09/24 18:04 Blood Blood Culture - Preliminary NO GROWTH AFTER 48 HOURS OF INCUBATION. Resulted Problem List/Assessment/Plan Problem List/Assessment/Plan severe chf NICM non compliance htn cont HF meds dc home on bid po lasix cont HF meds jardiance Plan discussed with: Patient Date of Service: Jul 12, 2024 Billing Provider: DEREK SERRANO MD Common Visit Codes: NOT BILLABLE DEREK SERRANO MD Jul 12, 2024 12:20
--- NOTE | 2024-07-12 17:35 | DVHPN2 ---
Progress Note - Dictate Date Seen: Jul 12, 2024 (Late entryPatient seen at 11:00 a.m.) Medical Necessity Reason Pt with a Central, PICC or Fol: No Subjective No new complaints Patient is out of bed to chair He is tolerating diet vital signs Vital Sign Date Time Temp Pulse Resp B/P (MAP) Pulse Ox O2 Delivery O2 Flow Rate FiO2 07/12/24 11:57 97.8 71 18 95 07/12/24 10:28 107/71 07/12/24 10:00 Room Air 07/12/24 10:00 0 21 Total Intake and Output 07/11/24 07/11/24 07/12/24 15:00 23:00 07:00 Intake Total 636 ml 400 ml Output Total 400 ml 1400 ml Balance 236 ml -1000 ml medications Current Medications Medications Dose Ordered Sig/Manuel Route Start Time Stop Time Status Last Admin Dose Admin Albuterol 2.5 mg Q4HPRN PRN NEB 07/09/24 20:45 Cancel Ipratropium [place] 0.5 mg Q4HPRN PRN NEB 07/09/24 20:45 Cancel objective General Appearance: Alert, Oriented X3, Cooperative, No acute distress HEENT: Atraumatic, PERRLA, EOMI, Mucous membr. moist/pink Respiratory: Normal air movement, Other (Congestion) Cardiovascular: Regular rate, Normal S1, Normal S2, No murmurs Abdominal: Normal bowel sounds, Soft, No tenderness, No hepatospenomegaly, No masses Extremities: No clubbing, No cyanosis, No edema, Normal pulses, No tenderness/swelling Skin: No rashes, No breakdown, No significant lesion Neuro: Normal speech, Normal tone, Sensation intact Psych/Mental Status: Mental status NL, Mood NL laboratory and microbiology Laboratory Tests 07/12/24 06:25 Test 07/12/24 06:25 Range/Units Serum Glucose 108 H 74-106 mg/dL Problems(with codes): (1) Chest pain (2) Diarrhea (3) Gastroenteritis Prognosis Plan At this time the patient appears to be stable and has no GI symptoms I would recommend conservative observation and management at this time We will put him on Protonix 40 mg p.o. daily Patient may have had acute food poisoning or gastroenteritis that has resolved He was advised to follow up in my office as an outpatient for elective panendoscopy My contact information was provided Patient will need cardiac clearance because he has underlying cardiomyopathy Once again thank you for allowing me to participate in the care of this patient I will follow this patient with you Plan discussed with: Patient Plan discussed with: Patient GRACE PINTO MD Jul 12, 2024 17:35
[2024-07-12] MEDS ORDERED: METOPROLOL TARTRATE 25 MG TAB PO SCH (22:00)
== END 2024-07-12 12:33 | disposition home or self-care (01) | DRG 194 ==
LOC: EDBD 16:37 → EDUNIT# 16:37 → ER 16:37 → OVERFLOW 20:18 → TELE-WESTW 20:26
PROVIDERS: ADMIT Hospitalist; ATTEND Hospitalist
DX: I13.0 Hypertensive heart and chronic kidney disease with heart failure and stage 1 through stage 4 chronic kidney disease, or unspecified chronic kidney disease (principal); N17.0 Acute kidney failure with tubular necrosis; I42.8 Other cardiomyopathies; E11.22 Type 2 diabetes mellitus with diabetic chronic kidney disease; J44.1 Chronic obstructive pulmonary disease with (acute) exacerbation; I50.23 Acute on chronic systolic (congestive) heart failure; I25.10 Atherosclerotic heart disease of native coronary artery without angina pectoris; F17.210 Nicotine dependence, cigarettes, uncomplicated; F41.9 Anxiety disorder, unspecified; K21.9 Gastro-esophageal reflux disease without esophagitis; K52.9 Noninfective gastroenteritis and colitis, unspecified; B34.9 Viral infection, unspecified; N18.31 Chronic kidney disease, stage 3a; Z88.6 Allergy status to analgesic agent; Z80.3 Family history of malignant neoplasm of breast; Z82.49 Family history of ischemic heart disease and other diseases of the circulatory system; Z83.3 Family history of diabetes mellitus; Z71.6 Tobacco abuse counseling; Z79.899 Other long term (current) drug therapy
CPT/HCPCS: 36415; 71045; 74176; 76705; 80048; 80053; 80074; 80307; 81001; 82962; 83036; 83605; 83690; 83735; 83880; 84439; 84443; 84484; 85025; 87040; 87081; 93005; 96374; G0378; J2405; J2470

== ENCOUNTER 2024-07-24 11:45 | Inpatient (IN) | payer MEDICAID ==
[~2024-07-24] VITALS: Ht 172.7 cm; Wt 82.2 kg
[~2024-07-24 11:45] MED LIST changes: +ALBU108A5; +ASPI-325 PO; -CARV-214 PO; +FURO1TAB31 PO; -FURO1TAB33 PO; +LEVO137T3 PO; +MET25T PO; +POTA-228 PO
--- NOTE | 2024-07-24 11:54 | ECG ---
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
--- NOTE | 2024-07-24 12:02 | ED.PDOC ---
HPI Comments 63-year-old male who comes in with chief complaint of chest pain times approximately 2 hours. The patient states that he has had pain off and on for the past several weeks. He states that today he was at rest when the pain started. It was left-sided and nonradiating. It does increase on palpitation. The chest pain is associated with some nausea but no vomiting. He also reports some mild shortness for breath as well as leg swelling. He does have a history of CHF and also states that he had an [place] back when he was around 49 years old. EN route, the patient was slightly hypotensive so was not given any nitroglycerin and he did not have his dentures so they did not give him any aspirin. Chief Complaint: Chest Pain Time Seen by MD: 11:48 Primary Care Provider: haily Reviewed Notes: Nurses Notes, Medications, Allergies (Allergies to morphine) Allergies: Coded Allergies: Empagliflozin (Verified Allergy, Severe, 07/24/24) Morphine (Unverified Allergy, Unknown, 04/18/22) SEVERE BRADYCARDIA Home Meds Active Scripts Metoprolol Tartrate (Lopressor) 25 Mg Tb, 25 MG PO BID for 30 Days, #60 TAB Prov:MANJULA LAN CASH REGISTER REPAIRER 07/12/24 Aspirin (Aspirin Low Dose) 81 Mg Tab, 81 MG PO DAILY for 30 Days, #30 TAB Prov:MANJULA LAN CASH REGISTER REPAIRER 07/12/24 Potassium Chloride (Potassium Chloride ER) 10 Meq Tab, 10 MEQ PO BID for 30 Days, #60 TAB Prov:MANJULA LAN CASH REGISTER REPAIRER 07/11/24 Furosemide (Lasix) 40 Mg Tab, 40 MG PO BID for 30 Days, #60 TAB Prov:MANJULA LAN CASH REGISTER REPAIRER 07/11/24 Sacubitril-Valsartan (Entresto 24-26 mg) 1 Tab Tab, 1 TAB PO BID, #180 TAB Prov:EUN LI MD 09/16/23 Reported Medications Albuterol Sulfate (Albuterol Sulfate Hfa) 108 Mcg/Act Aer 07/09/24 Clonazepam (Clonazepam) 0.5 Mg Tab, 1 TAB PO BID for 30 Days, #60 07/04/24 Levothyroxine Sodium (Levothyroxine Sodium) 125 Mcg Tab, 1 TAB PO DAILY for 60 Days, #60 07/04/24 Venlafaxine Hcl (Venlafaxine Hcl Er) 150 Mg Tab, 1 TAB PO DAILY for 30 Days, #30 07/04/24 Dapagliflozin Propanediol (Farxiga) 10 Mg Tab, 1 TAB PO DAILY for 30 Days, #30 09/14/23 Tamsulosin Hcl (Tamsulosin Hcl) 0.4 Mg Cap, 0.8 MG PO DAILY AFTER MEAL, MG 09/14/23 Losartan Potassium (Losartan Potassium) 25 Mg Tab, 1 TAB PO DAILY, #90 TAB 1 Refill 04/18/22 Information Source: Patient Mode of Arrival: Ambulatory Severity: Moderate Timing: Hours Duration: Since onset Prehospital treatment: 12 Lead EKG, Configuration Release Manager, IVF Location: Chest (L) Radiation: No Radiation Quality: Squeezing, Pressure Onset: At Rest Cardiac Risk Factors: Smoker, Family History, Hyperlipidemia, HTN, Diabetes PE Risk Factors: None History of: Similar pain in past Modifying Factors: Nothing Associated Signs and Symptoms: SOB Past Medical History PAST MEDICAL HISTORY: Anxiety, CAD, CHF, CKF, COPD, Depression, DM, GERD, High Lipids, HTN, [place], Thyroid Surgical History: Pacemaker Family History Family History: Family hx of DM, Family hx of Cancer, Family hx of heart herve, Family hx of HTN Social History Smoker: Cigarettes, Less Than 1 Pack/Day Alcohol: Denies ETOH Use Drugs: Denies Drug Use Lives In: Home Constitutional: denies: chills, diaphoresis, fatigue, fever, malaise, sweats, weakness, others EENTM: denies: blurred vision, double vision, ear bleeding, ear discharge, ear drainage, ear pain, ear ringing, eye pain, eye redness, hearing loss, mouth pain, mouth swelling, nasal discharge, nose bleeding, nose congestion, nose pain, photophobia, tearing, throat pain, throat swelling, voice changes, others Respiratory: reports: shortness of breath; denies: cough, hemoptysis, orthopnea, SOB at rest, SOB with excertion, stridor, wheezing, others Cardiovascular: reports: chest pain; denies: dizzy spells, diaphoresis, Dyspnea on exertion, edema, irregular heart beat, left arm pain, lightheadedness, palpitations, PND, syncope, others Gastrointestinal: denies: abdomen distended, abdominal pain, blood streaked bowels, constipated, diarrhea, dysphagia, difficulty swallowing, hematemesis, melena, nausea, poor appetite, poor fluid intake, rectal bleeding, rectal pain, vomiting, others Genitourinary: denies: burning, dysuria, flank pain, frequency, hematuria, incontinence, penile discharge, penile sore, pain, testicle pain, testicle swelling, urgency, others Neurological: denies: dizziness, fainting, headache, left sided numbness, left sided weakness, numbness, paresthesia, pre-existing deficit, right sided numbness, right sided weakness, seizure, speech problems, tingling, tremors, weakness, others Musculoskeletal: denies: back pain, gout, joint pain, joint swelling, muscle pain, muscle stiffness, neck pain, others Integumetry: denies: bruises, change in color, change in hair/nails, dryness, laceration, lesions, lumps, rash, wounds, others Allergic/Immunocompromised: denies: Difficulty Healing, Frequent Infections, Hives, Itching, others Hematologic/Lymphatic: denies: anemia, blood clots, easy bleeding, easy bruising, swollen glands, others Endocrine: denies: excessive hunger, excessive sweating, excessive thirst, excessive urination, flushing, intolerance to cold, intolerance to heat, unexplained weight gain, unexplained weight loss, others Psychiatric: denies: anxiety, bipolar disorder, depression, hopeless, panic disorder, schizophrenia, sleepless, suicidal, others Physical Exam General Appearance: Moderate Distress HEENT: Normal ENT Inspection, Pharynx Normal, TMs Normal Neck: Full Range of Motion, Non-Tender, Normal, Normal Inspection Respiratory: Chest Non-Tender, Lungs Clear, No Accessory Muscle Use, No Respiratory Distress, Normal Breath Sounds Cardiovascular: No Edema, No JVD, No Murmur, No Gallop, Regular Rate/Rhythm, Other (Pacemaker to the left chest) Breast Exam: Deferred Gastrointestinal: No Organomegaly, Non Tender, No Pulsatile Mass, Normal Bowel Sounds, Soft Genitalia: Deferred Pelvic: Deferred Rectal: Deferred Extremities: No calf tenderness, Normal capillary refill, Normal inspection, Normal range of motion, Non-tender, No pedal edema Musculoskeletal : Apperance: Normal Neurologic: Alert, clamp operator II-XII nml as Tested, No Motor Deficits, Normal Affect, Normal Mood, No Sensory Deficits Cerebellar Function: Normal Reflexes: Normal Skin: Dry, Normal Color, Warm Lymphatic: No Adenopathy EKG EKG : Pulse Rate (adult): 85 [place]: Normal Cardiac Rhythm: NSR Was a procedure done? Was a procedure done?: No CP Differential Dx Differential Diagnosis: Angina, [place], Pulmonary Embolus Differential Diagnosis: CHF, HTN Encephalopathy Differential Diagnosis: Pericarditis X-Ray, Labs, Meds, VS Vital Signs Date Time Temp Pulse Resp B/P (MAP) Pulse Ox O2 Delivery O2 Flow Rate FiO2 07/24/24 13:01 101 07/24/24 12:32 98.3 84 16 95/63 (74) 95 98.3 07/24/24 12:32 84 16 95 Room Air* 0 21 07/24/24 11:46 105 07/24/24 11:45 97.4 81 18 100/66 (77) 98 97.4 Lab Test 07/24/24 12:53 07/24/24 12:01 Range/Units Troponin I High Sensitivity 23 25 </=54 ng/L White Blood Count 6.9 4.4-10.8 10^3/uL Red Blood Count 4.82 4.5-5.90 10^6/uL Hemoglobin 14.6 13.5-17.5 g/dL Hematocrit 44.1 41.0-53.0 % Mean Corpuscular Volume 91.4 80.0-100.0 fL Mean Corpuscular Hemoglobin 30.2 28.0-32.0 pg Mean Corpuscular Hemoglobin Concent 33.0 32.0-36.0 g/dL Red Cell Distribution Width 14.8 H 11.8-14.3 % Platelet Count 241 140-450 10^3/uL Mean Platelet Volume 8.7 6.9-10.8 fL Neutrophils (%) (Auto) 66.6 37.0-80.0 % Lymphocytes (%) (Auto) 16.0 10.0-50.0 % Monocytes (%) (Auto) 7.4 0.0-12.0 % Eosinophils (%) (Auto) 8.8 H 0.0-7.0 % Basophils (%) (Auto) 1.2 0.0-2.0 % Neutrophils # (Auto) 4.6 1.6-8.6 10 ^3/uL Lymphocytes # (Auto) 1.1 0.4-5.4 10 ^3/uL Monocytes # (Auto) 0.5 0-1.3 10 ^3/uL Eosinophils # (Auto) 0.6 0-0.8 10 ^3/uL Basophils # (Auto) 0.1 0-0.2 10 ^3/uL Nucleated Red Blood Cells 0.1 % Sodium Level 140 136-145 mmol/L Potassium Level 4.0 3.5-5.1 mmol/L Chloride Level 108 H 98-107 mmol/L Carbon Dioxide Level 28 20-31 mmol/L Anion Gap 4 L 5-15 Blood Urea Nitrogen 21 9-23 mg/dL Creatinine 1.48 H 0.700-1.30 mg/dL Glomerular Filtration Rate Calc 53 >90 mL/min BUN/Creatinine Ratio 14.2 10.0-20.0 Serum Glucose 156 H 74-106 mg/dL Calcium Level 9.8 8.7-10.4 mg/dL B-Type Natriuretic Peptide 1093.63 0-100 pg/mL Current Medications Medications (Trade) Dose Ordered Sig/Manuel Route Start Time Stop Time Status Last Admin Aspirin 162 mg ONCE ONCE PO 07/24/24 12:00 07/24/24 12:01 DC 07/24/24 12:36 PROCEDURE(s): CXRP - CHEST PORTABLE IMPRESSION: 1. Cardiomegaly with similar pulmonary vascular congestion. At this time the patient was given Lasix 40 mg IV push A Hep-Lock was established The BNP is 1093.63 The CBC is within normal limits The chemistry panel is within normal limits except for a creatinine of 1.48 The patient was troponin level x2 is within normal limits The patient was slightly hypotensive at 98/63 The patient was being admitted at this time Discussed the findings with the patient and he is in agreement with the management A cardiology consult will be obtained. Images Reviewed?: Images reviewed and evaluated by me Time of 1ST Reevaluation: 15:22 Reevaluation 1ST: Unchanged Patient Education/Counseling: Diagnosis, Treatment, Prognosis Family Education/Counseling: No Family Present Departure 1 Departure Time of Disposition: 15:22 Impression: Primary Impression: ACS (acute coronary syndrome) Additional Impressions: Acute on chronic diastolic heart failure Generalized weakness Disposition: 09 ADMITTED INPATIENT Admit to: [facility] Condition: Fair Critical Care Note Critical Care Time?: Yes (45 min-critical care time only) Stability Stability form required: Yes Unstable for transfer: Telemetry monitoring (Telemetry monitoring required), ED Physician Assesment (Clinical assesment) Heart Score Heart Score: Heart Score Response (Comments) Value History Moderate Suspicious 1 EKG Repolarization Disturb 1 Age 45-64 1 Risk Factors >3 or Hx ASHD 2 Troponin Normal limit 0 Total 5 I personally scribed for MUNA VASQUEZ MD ([email or web address]) on 07/24/24 at 13:11. Electronically submitted by Barbara Patterson ([email or web address]). MUNA VASQUEZ MD Jul 24, 2024 12:02
[2024-07-24 12:12] LABS: Basophils # (auto) 0.1 10 ^3/uL (0-0.2); Basophils % (auto) 1.2 % (0.0-2.0); Eosinophils # (auto) 0.6 10 ^3/uL (0-0.8); Eosinophils % (auto) 8.8 % (0.0-7.0); Hematocrit 44.1 % (41.0-53.0); Hemoglobin 14.6 g/dL (13.5-17.5); Lymphocytes # (auto) 1.1 10 ^3/uL (0.4-5.4); Mean Corpuscular Hemoglobin 30.2 pg (28.0-32.0); Mean Corpuscular Volume 91.4 fL (80.0-100.0); Monocytes # (auto) 0.5 10 ^3/uL (0-1.3); Monocytes % (auto) 7.4 % (0.0-12.0); Neutrophils # (auto) 4.6 10 ^3/uL (1.6-8.6); Neutrophils % (auto) 66.6 % (37.0-80.0); Nucleated Red Blood Cells % 0.1 %; Platelet Count (auto) 241 10^3/uL (140-450); Red Blood Cells 4.82 10^6/uL (4.5-5.90); Red Cell Distribution Width 14.8 % (11.8-14.3); White Blood Cell 6.9 10^3/uL (4.4-10.8)
[2024-07-24 12:20] LABS: Sodium 140 mmol/L (136-145)
[2024-07-24 12:21] LABS: Anion Gap 4 (5-15); Carbon Dioxide 28 mmol/L (20-31)
[2024-07-24 12:22] LABS: Calcium 9.8 mg/dL (8.7-10.4); Chloride 108 mmol/L (98-107)
[2024-07-24 12:27] LABS: BUN/Creatinine Ratio 14.2 (10.0-20.0); Blood Urea Nitrogen 21 mg/dL (9-23)
[2024-07-24 12:29] LABS: Glucose 156 mg/dL (74-106)
[2024-07-24 12:32] VITALS: PULSE 84; RESP 16; O2SAT 95
[2024-07-24] MEDS: ASPirin 81 mg TAB PO ONE (12:36)
--- NOTE | 2024-07-24 12:55 | DVH ---
CHEST RADIOGRAPH Indication: cp Technique: Single frontal view of the chest was obtained COMPARISON: XY CHEST PORTABLE on DOS: 07/09/24, FINDINGS: Lines and Tubes: Stable AICD. Lungs: No consolidation. Similar pulmonary vascular congestion. Pleura: No effusion. No pneumothorax. Cardiomediastinal contours: Cardiomegaly. Bones: Unremarkable IMPRESSION: 1. Cardiomegaly with similar pulmonary vascular congestion.
--- NOTE | 2024-07-24 13:02 | ECG ---
[facility] Test Date: 2024-07-24 Test Time: 13:01:55 Pat Name: XIAO HERNANDEZ Department: ER Room: [address] [place] [address] Gender: M Precise Winder: PHILLIP : 1960 Requested By: MUNA VASQUEZ Order Number: [id number] Reading MD: Ector Jeffers Measurements Intervals [place] Rate: 101 P: 0 CA: 181 QRS: -47 QRSD: 125 T: 93 QT: 393 QTc: 510 Interpretive Statements Atrial-ventricular dual-paced complexes No further rhythm analysis attempted due to paced rhythm Left bundle branch block Electronically Signed On 07-24-2024 19:22:44 PDT by Ector Jeffers Please click the below link to view image of tracing.
--- NOTE | 2024-07-24 13:48 | DVHHP2 ---
History of Present Illness History of Present Illness 63-year-old male with a history of nonischemic cardiomyopathy, CHF, AICD placement presents to the emergency room for chest pain at rest. Patient does report some shortness of breath. Patient sees Dr. Montalvo as outpatient. Patient denies any fever chills. Review of Systems Constitutional: No: Fever, Chills, Sweats, Weakness, Malaise, Other Respiratory: Shortness of breath Cardiovascular: Chest Pain Gastrointestinal: No: Nausea, Vomiting, Abdominal Pain, Diarrhea, Constipation, Melena, Hematochezia, Other Allergies: Coded Allergies: Empagliflozin (Verified Allergy, Severe, 07/24/24) Morphine (Unverified Allergy, Unknown, 04/18/22) SEVERE BRADYCARDIA Exam Vital Signs Vital Signs Date Time Temp Pulse Resp B/P (MAP) Pulse Ox O2 Delivery O2 Flow Rate FiO2 07/24/24 13:01 101 07/24/24 12:32 98.3 16 95/63 (74) 95 98.3 07/24/24 12:32 Room Air* 0 21 General Appearance: Oriented X3, Cooperative, No acute distress Respiratory: Other (crackles in posterior bases) Cardiovascular: Regular rate, Normal S1, Normal S2, No murmurs Abdominal: Normal bowel sounds, Soft, No tenderness, No hepatospenomegaly Extremities: No clubbing Skin: No rashes Labs/Xrays Labs Test 07/24/24 12:53 07/24/24 12:01 Range/Units Troponin I High Sensitivity 23 </=54 ng/L White Blood Count 6.9 4.4-10.8 10^3/uL Red Blood Count 4.82 4.5-5.90 10^6/uL Hemoglobin 14.6 13.5-17.5 g/dL Hematocrit 44.1 41.0-53.0 % Mean Corpuscular Volume 91.4 80.0-100.0 fL Mean Corpuscular Hemoglobin 30.2 28.0-32.0 pg Mean Corpuscular Hemoglobin Concent 33.0 32.0-36.0 g/dL Red Cell Distribution Width 14.8 H 11.8-14.3 % Platelet Count 241 140-450 10^3/uL Mean Platelet Volume 8.7 6.9-10.8 fL Neutrophils (%) (Auto) 66.6 37.0-80.0 % Lymphocytes (%) (Auto) 16.0 10.0-50.0 % Monocytes (%) (Auto) 7.4 0.0-12.0 % Eosinophils (%) (Auto) 8.8 H 0.0-7.0 % Basophils (%) (Auto) 1.2 0.0-2.0 % Neutrophils # (Auto) 4.6 1.6-8.6 10 ^3/uL Lymphocytes # (Auto) 1.1 0.4-5.4 10 ^3/uL Monocytes # (Auto) 0.5 0-1.3 10 ^3/uL Eosinophils # (Auto) 0.6 0-0.8 10 ^3/uL Basophils # (Auto) 0.1 0-0.2 10 ^3/uL Nucleated Red Blood Cells 0.1 % Sodium Level 140 136-145 mmol/L Potassium Level 4.0 3.5-5.1 mmol/L Chloride Level 108 H 98-107 mmol/L Carbon Dioxide Level 28 20-31 mmol/L Anion Gap 4 L 5-15 Blood Urea Nitrogen 21 9-23 mg/dL Creatinine 1.48 H 0.700-1.30 mg/dL Glomerular Filtration Rate Calc 53 >90 mL/min BUN/Creatinine Ratio 14.2 10.0-20.0 Serum Glucose 156 H 74-106 mg/dL Calcium Level 9.8 8.7-10.4 mg/dL B-Type Natriuretic Peptide 1093.63 0-100 pg/mL Assessment/Plan Assessment/Plan 1. Chest Pain Cardiac consult, trend troponin, monitor EKG 2. Presence of dual chamber AICD Cardiac consult 3. Nonischemic cardiomyopathy Cardiac consult, monitor, continue Entresto 4. Acute on chronic Combined systolic and diastolic HF IV diuretics, cardiac consult, fluid restriction 5. COPD Med neb treatments 6. CKD 3a Monitor BMP 7. Tobacco use Counseled to stop Plan discussed with: Patient My Orders Orders - CHERRY PARRISH Procedure Category Date Status Time Admit ADMIT 07/24/24 Verified 13:46 Allergies TERRI 07/24/24 Verified 13:46 Code Status CODE 07/24/24 Verified 13:46 2 Gm Sodium Diet DIET 07/24/24 Verified Dinner Ondansetron Hcl PHA 07/24/24 Verified (Zofran) 14:00 Enoxaparin Sodium PHA 07/25/24 Verified (Lovenox) 10:00 Echo 2d Mode Cardiac US 07/24/24 Verified DOP 13:46 Condition: Fair [facility] 07/24/24 Verified 13:46 Acetaminophen Tablet PHA 07/24/24 Verified (Tylenol Tablet) 14:00 Morphine Sulfate PHA 07/24/24 Verified Injection 14:00 Nitroglycerin PHA 07/24/24 Verified Sublingual (Ntrostat 14:00 Morphine Sulfate PHA 07/24/24 Verified Injection 14:00 Stat Ekg For Chest [facility] 07/24/24 Verified Pain 13:46 Notify Of Changes [facility] 07/24/24 Verified From Base 13:46 Welding Engineer For [facility] 07/24/24 Verified 24 Hours 13:46 Emergency Dysrhythmia [facility] 07/24/24 Verified Protocol 13:46 Rhythm Strips Once [facility] 07/24/24 Verified Every Shift 13:46 Oxygen By Nasal RT 07/24/24 Verified Cannula 13:46 * Cardiology Consult CONS 07/24/24 Verified 13:46 Date of Service: Jul 24, 2024 Billing Provider: JD HOUGH MD Common Visit Codes: [id number] INP/OBS CARE (MOD) CHERRY PARRISH [employer] MAINTENANCE WORKER Jul 24, 2024 13:48
[2024-07-24] MEDS ORDERED: MORPHINE SULFATE INJ 2 MG/ml SYRG IV PRN ×2 (14:00)
[2024-07-24] MEDS ORDERED: ONDANSETRON HCL 4 MG/2 ML VIAL IV PRN (14:00)
[2024-07-24] MEDS ORDERED: NITROGLYCERIN 0.4 MG SL TAB SL PRN (14:00)
[2024-07-24] MEDS: FUROSEMIDE 40 MG/4 ML VIAL IV ONE (16:31)
[2024-07-24 20:05] LABS: Urine Bacteria None Seen /hpf (None Seen)
[2024-07-24 20:18] VITALS: BP 111/82; PULSE 84; RESP 18; TEMP 99; O2SAT 96
[2024-07-24 20:20] LABS: Urine Blood Negative /uL (Negative); Urine Clarity Clear (Clear); Urine Color Yellow (Yellow); Urine Mucus FEW (None Seen); Urine Protein, UAD Negative (Negative); Urine Squamous Epithelial Cell None Seen /hpf (<5); Urine Urobilinogen Normal (Negative); Urine WBC < 1 /HPF (0-3)
[2024-07-24] MEDS: SACUBITRIL-VALSARTAN 24mg/26mg TAB PO SCH (21:12)
[2024-07-24] MEDS: METOPROLOL TARTRATE 25 MG TAB PO SCH (21:13)
[2024-07-24] MEDS: clonazePAM 0.5 MG TAB PO SCH (21:13)
[2024-07-24 21:15] VITALS: BP 108/66; PULSE 89
[2024-07-24 21:16] LABS: Opiate Scree,Urine NEGATIVE (NEGATIVE)
[2024-07-24 21:17] LABS: Amphetamine Screen, Urine POSITIVE (NEGATIVE); Barbiturate Scree,Urine NEGATIVE (NEGATIVE); Benzodiazephine Screen, Urine NEGATIVE (NEGATIVE); Cannabinoid Screen, Urine NEGATIVE (NEGATIVE); Cocaine Screen, Urine NEGATIVE (NEGATIVE); Phencyclidine Screen, Urine NEGATIVE (NEGATIVE)
[2024-07-24 21:53] VITALS: PULSE 95; RESP 18; O2SAT 94
[2024-07-24] MEDS ORDERED: FUROSEMIDE 40 MG TAB PO SCH (22:00)
[2024-07-24] MEDS: ACETAMINOPHEN 325 MG TAB PO PRN (22:43)
[2024-07-25] VITALS (9 sets, daily range): BP systolic 87–116; BP diastolic 49–82; PULSE 64–98; RESP 16–20; TEMP 97.6–98.2; O2SAT 93–99
[2024-07-25 06:10] LABS: Basophils # (auto) 0.1 10 ^3/uL (0-0.2); Basophils % (auto) 1.7 % (0.0-2.0); Eosinophils # (auto) 0.6 10 ^3/uL (0-0.8); Hematocrit 47.5 % (41.0-53.0); Hemoglobin 15.5 g/dL (13.5-17.5); Lymphocytes # (auto) 1.4 10 ^3/uL (0.4-5.4); Lymphocytes % (auto) 24.9 % (10.0-50.0); Mean Corpuscular Hemoglobin 29.9 pg (28.0-32.0); Mean Corpuscular Hgb Conc. 32.6 g/dL (32.0-36.0); Mean Corpuscular Volume 91.6 fL (80.0-100.0); Monocytes # (auto) 0.6 10 ^3/uL (0-1.3); Monocytes % (auto) 10.2 % (0.0-12.0); Neutrophils % (auto) 52.2 % (37.0-80.0); Platelet Count (auto) 231 10^3/uL (140-450); Red Blood Cells 5.19 10^6/uL (4.5-5.90); Red Cell Distribution Width 14.6 % (11.8-14.3); White Blood Cell 5.8 10^3/uL (4.4-10.8)
[2024-07-25 06:33] LABS: Alanine Aminotransferase 26 U/L (7-40); Alkaline Phosphatase 67 U/L (46-116); Anion Gap 6 (5-15); Aspartate Aminotransferase 26 U/L (13-40); BUN/Creatinine Ratio 11.8 (10.0-20.0); Blood Urea Nitrogen 21 mg/dL (9-23); Calcium 9.4 mg/dL (8.7-10.4); Carbon Dioxide 29 mmol/L (20-31); Chloride 106 mmol/L (98-107); Glucose 98 mg/dL (74-106); Potassium 4.2 mmol/L (3.5-5.1); Sodium 141 mmol/L (136-145); Total Protein 6.3 g/dL (5.7-8.2); Triglycerides 101 mg/dL (< 150)
[2024-07-25 06:34] LABS: Bilirubin, Total 0.6 mg/dL (0.2-1.0); Cholesterol 161 mg/dL (< 200); HDL Cholesterol 42 mg/dL (40-59)
[2024-07-25 06:35] LABS: LDL Cholesterol 107 mg/dL (< 100)
[2024-07-25] MEDS ORDERED: LOSARTAN POTASSIUM 25 MG TAB PO SCH (10:00)
[2024-07-25] MEDS: FUROSEMIDE 40 MG/4 ML VIAL IV SCH (11:13)
[2024-07-25] MEDS: TAMSULOSIN HYDROCHLORIDE 0.4 MG CAP PO SCH (11:14)
[2024-07-25] MEDS: ASPirin-EC 81 mg tab PO SCH (11:14)
[2024-07-25] MEDS: ENOXAPARIN SOD 40 MG/0.4 ML SYRINGE SC SCH (11:22)
--- NOTE | 2024-07-25 14:45 | DVHINCON2 ---
DATE OF CONSULTATION: 07/25/2024 REFERRING PHYSICIAN: CONSULTING PHYSICIAN: Rizwana Rouse MD covering for Dr. Montalvo. INDICATION: Shortness of breath, chest pain. HISTORY OF PRESENT ILLNESS: The patient is a 63-year-old male with history of nonischemic dilated cardiomyopathy, systolic heart failure status post ICD implant, who presented to the hospital with complaints of worsening shortness of breath and chest pain, described the pain as tightness. The patient had an angiogram done. Did not show any significant coronary artery disease. Currently on IV Lasix with some improvement in symptoms. PAST MEDICAL HISTORY: * Nonischemic dilated cardiomyopathy. * Systolic heart failure. * Status post ICD implant. MEDICATIONS: Per med rec. ALLERGIES: MORPHINE. PHYSICAL EXAMINATION: GENERAL: Alert and awake, in no form of cardiopulmonary distress. VITAL SIGNS: Blood pressure 104/72, pulse 85 per minute, saturation 99%. HEENT: No carotid bruits. No jugular venous distention. CHEST: Bilateral air entry. CARDIOVASCULAR: Precordial and carotid pulses palpable. Normal S1 and S2. Regular rate and rhythm. No appreciable gallop, rubs, or clicks. EXTREMITIES: Bilateral edema. DIAGNOSTIC DATA: CBC is normal. Sodium 141, potassium 4.2, creatinine is 1.7. Troponin is negative. BNP is 1093. ASSESSMENT: * Acute on chronic systolic heart failure. * Nonischemic dilated cardiomyopathy. * Chest pain, atypical, noncardiac. * Status post implantable cardioverter-defibrillator implant. RECOMMENDATIONS: * Agree with diuresis. * Continue IV Lasix. * Restrict salt and fluid intake. * The patient advised to comply with home medication. * Monitor input and output closely. * Once well diuresed, may be discharged home and follow up with his primary license inspector, Dr. Montalvo, as an outpatient in one to two weeks. Thank you for allowing me to participate in the care of this patient. MD JESSICA Cedeno/SUSANNAH/HAMLET TID: [id number] RECEIPT: [id number]
--- NOTE | 2024-07-25 16:28 | DVHPN2 ---
Progress Note - Dictate Date Seen: Jul 25, 2024 Medical Necessity Reason Pt with a Central, PICC or Fol: No vital signs Vital Sign Date Time Temp Pulse Resp B/P (MAP) Pulse Ox O2 Delivery O2 Flow Rate FiO2 07/25/24 15:20 64 16 97 Room Air* 0 21 07/25/24 13:00 98.0 93/60 (71) 98.0 Total Intake and Output 07/24/24 07/24/24 07/25/24 15:00 23:00 07:00 Intake Total 740 ml Output Total 426 ml Balance 314 ml medications Current Medications Medications Dose Ordered Sig/Manuel Route Start Time Stop Time Status Last Admin Dose Admin Ondansetron HCl 4 mg Q4HP PRN IV 07/24/24 14:00 Enoxaparin Sodium 40 mg DAILY SC 07/25/24 10:00 Acetaminophen 650 mg Q6HP PRN PO 07/24/24 14:00 07/24/24 22:43 650 MG Morphine Sulfate 2 mg Q4HPRN PRN IV 07/24/24 14:00 Hold Nitroglycerin 0.4 mg Q5MINP PRN SL 07/24/24 14:00 Morphine Sulfate 2 mg Q30M PRN IV 07/24/24 14:00 Hold Aspirin 81 mg DAILY PO 07/25/24 10:00 07/25/24 11:14 81 MG Clonazepam 0.5 mg BID PO 07/24/24 22:00 07/25/24 11:14 0.5 MG Losartan Potassium 25 mg DAILY PO 07/25/24 10:00 Hold Metoprolol Tartrate 25 mg BID PO 07/24/24 22:00 07/25/24 11:14 25 MG Sacubitril/ Valsartan 1 tab BID PO 07/24/24 22:00 07/25/24 11:14 1 TAB Tamsulosin HCl 0.8 mg DAILY PO 07/25/24 10:00 07/25/24 11:14 0.8 MG Furosemide 40 mg DAILY IV 07/25/24 10:00 07/25/24 11:13 40 MG objective General Appearance: alert, no distress HEENT: EOMI, PERRLA, normal external inspect of ears, no icterus, no nasal drainage Neck: no carotid bruit, no jugular venous distention (JVD), no lymphadenopathy Chest: normal thorax Respiratory: clear to auscultation, normal air movement Cardiovascular: regular rate and rhythm, no diastolic murmur, no jugular venous distention (JVD), no rub, no systolic murmur Abdominal: soft, no hepatomegaly, no mass, no splenomegaly, no tenderness Genitourinary: grossly normal external Musculoskeletal: no joint tenderness, no swelling Extremities: normal pulses, no calf tenderness, no clubbing, no cyanosis, no edema Skin: no bruising, no jaundice, no rash Neurological: alert, No focal deficit laboratory and microbiology Laboratory Tests 07/25/24 05:02 Test 07/25/24 05:02 Range/Units Serum Glucose 98 74-106 mg/dL Problem List 1. Chest Pain Cardiac consult, trend troponin, monitor EKG 2. Presence of dual chamber AICD Cardiac consult 3. Nonischemic cardiomyopathy Cardiac consult, monitor, continue Entresto 4. Acute on chronic Combined systolic and diastolic HF IV diuretics, cardiac consult, fluid restriction 5. COPD Med neb treatments 6. CKD 3a Monitor BMP 7. Tobacco use Counseled to stop Assessment/Plan Subjective: Patient is awake and alert. Objective: Patient is lethargic today. He was admitted for chest pain and has a history of non-ischemic cardiomyopathy and an AICD. He has acute on chronic combined heart failure, as well as underlying CKD stage 3. Patient has COPD and is a current smoker. Renal function is slightly worsening today. Plan: Continue diuretics. Monitor renal function. Trend BNP levels. Monitor EKG. Plan discussed with: Patient, Other MANJULA LAN NP Jul 25, 2024 16:28
[2024-07-26 01:00] VITALS: BP 91/59; PULSE 70; RESP 17; TEMP 97.7; O2SAT 96
[2024-07-26 06:26] LABS: Anion Gap 8 (5-15); Calcium 9.5 mg/dL (8.7-10.4); Carbon Dioxide 24 mmol/L (20-31); Chloride 106 mmol/L (98-107); Potassium 4.4 mmol/L (3.5-5.1); Sodium 138 mmol/L (136-145)
[2024-07-26 06:31] LABS: Glucose 90 mg/dL (74-106)
[2024-07-26 06:32] LABS: BUN/Creatinine Ratio 15.3 (10.0-20.0); Magnesium 2.3 mg/dL (1.6-2.6)
[2024-07-26 06:33] LABS: Blood Urea Nitrogen 24 mg/dL (9-23)
[2024-07-26 08:00] VITALS: PULSE 59; PULSE 77; RESP 19; O2SAT 94
[2024-07-26 09:00] VITALS: BP 91/68; PULSE 59; RESP 19; TEMP 98; O2SAT 94
--- NOTE | 2024-07-26 11:07 | CONS ---
Pharmacy Clinical Information: CQM HF (missing EBBB, ACEI/ARB/ARNI, MRA, SGLT2). Patient is already on entresto (ARNI). Additionally patient's BP and HR is low at this time and EBBB (might also lower heart rate), MRA and SGLT2 might lower BP further. The patient is also on dapagliflozin at home, however [facility] only has empagliflozin on the formulary and the patient is allergic to it. If cardiology would like to continue SGLT2, the patient's medication needs to be brought to the pharmacy. T he patient's Scr is also elevated at this time. Once blood pressure, heart rate and Scr is stabilized, please consider adding MRA and SGLT2 and consider switching to metoprolol succinate at the discretion of the cardiology team. DARBY PANTOJA PHARMACIST Jul 26, 2024 11:07
[2024-07-26 13:00] VITALS: BP 101/66; PULSE 73; RESP 17; TEMP 98.1; O2SAT 93
[2024-07-26] MEDS ORDERED: METO25TA5 PO (15:27)
--- NOTE | 2024-07-26 15:29 | DVHDS2 ---
Discharge Summary Date of Admission Jul 24, 2024 at 13:46 Date of Discharge: Jul 26, 2024 Labs/Diagnostic Data: Laboratory Results Test 07/26/24 04:56 07/25/24 05:02 07/24/24 16:55 07/24/24 14:55 Sodium Level 138 mmol/L (136-145) Potassium Level 4.4 mmol/L (3.5-5.1) Chloride Level 106 mmol/L (98-107) Carbon Dioxide Level 24 mmol/L (20-31) Anion Gap 8 (5-15) Blood Urea Nitrogen 24 mg/dL (9-23) Creatinine 1.57 mg/dL (0.700-1.30) Glomerular Filtration Rate Calc 49 mL/min (>90) BUN/Creatinine Ratio 15.3 (10.0-20.0) Serum Glucose 90 mg/dL (74-106) Calcium Level 9.5 mg/dL (8.7-10.4) Magnesium Level 2.3 mg/dL (1.6-2.6) B-Type Natriuretic Peptide 611.91 pg/mL (0-100) White Blood Count 5.8 10^3/uL (4.4-10.8) Red Blood Count 5.19 10^6/uL (4.5-5.90) Hemoglobin 15.5 g/dL (13.5-17.5) Hematocrit 47.5 % (41.0-53.0) Mean Corpuscular Volume 91.6 fL (80.0-100.0) Mean Corpuscular Hemoglobin 29.9 pg (28.0-32.0) Mean Corpuscular Hemoglobin Concent 32.6 g/dL (32.0-36.0) Red Cell Distribution Width 14.6 % (11.8-14.3) Platelet Count 231 10^3/uL (140-450) Mean Platelet Volume 8.8 fL (6.9-10.8) Neutrophils (%) (Auto) 52.2 % (37.0-80.0) Lymphocytes (%) (Auto) 24.9 % (10.0-50.0) Monocytes (%) (Auto) 10.2 % (0.0-12.0) Eosinophils (%) (Auto) 11.0 % (0.0-7.0) Basophils (%) (Auto) 1.7 % (0.0-2.0) Neutrophils # (Auto) 3.0 10 ^3/uL (1.6-8.6) Lymphocytes # (Auto) 1.4 10 ^3/uL (0.4-5.4) Monocytes # (Auto) 0.6 10 ^3/uL (0-1.3) Eosinophils # (Auto) 0.6 10 ^3/uL (0-0.8) Basophils # (Auto) 0.1 10 ^3/uL (0-0.2) Nucleated Red Blood Cells 0.0 % Total Bilirubin 0.6 mg/dL (0.2-1.0) Aspartate Amino Transferase (AST) 26 U/L (13-40) Alanine Aminotransferase (ALT) 26 U/L (7-40) Alkaline Phosphatase 67 U/L (46-116) Total Protein 6.3 g/dL (5.7-8.2) Albumin 4.0 g/dL (3.2-4.8) Triglycerides Level 101 mg/dL (< 150) Cholesterol Level 161 mg/dL (< 200) LDL Cholesterol 107 mg/dL (< 100) HDL Cholesterol 42 mg/dL (40-59) Urine Color Yellow (Yellow) Urine Clarity Clear (Clear) Urine pH 6.0 (5.0-9.0) Urine Specific [place] 1.020 (1.001-1.035) Urine Protein Negative (Negative) Urine Ketones Negative (Negative) Urine Blood Negative /uL (Negative) Urine Nitrite Negative (Negative) Urine Bilirubin Negative (Negative) Urine Urobilinogen Normal mg/dL (Negative) Urine Leukocyte Esterase Negative /uL (Negative) Urine RBC None seen /hpf (0 - 3) Urine Microscopic WBC < 1 /HPF (0-3) Urine Squamous Epithelial Cells None seen /hpf (<5) Urine Bacteria None seen /hpf (None Seen) Urine Mucus Few (None Seen) Urine Glucose Normal mg/dL (Normal) Urine Opiates Screen Negative (NEGATIVE) Urine Fentanyl Screen Negative (NEGATIVE) Urine Barbiturates Screen Negative (NEGATIVE) Urine Phencyclidine Screen Negative (NEGATIVE) Urine Amphetamines Screen Positive (NEGATIVE) Urine Benzodiazepines Screen Negative (NEGATIVE) Urine Cocaine Screen Negative (NEGATIVE) Urine Cannabinoids Screen Negative (NEGATIVE) Troponin I High Sensitivity 21 ng/L (</=54) Other Laboratory Tests 07/26/24 04:56 07/25/24 05:02 Brief Hx & Hospital Course: 63-year-old male with a history of nonischemic cardiomyopathy, CHF, AICD placement presents to the emergency room for chest pain at rest. Patient does report some shortness of breath. Patient sees Dr. Montalvo as outpatient. Patient denies any fever chills. Patient was admitted for unstable angina. Patient has a history of non-ischemic cardiomyopathy with an AICD. Patient also has underlying COPD and CKD stage IIIa. Chest pain most likely related to acute CHF exacerbation. History of acute on chronic systolic heart failure. Patient was given diuretics and had a mild MÓNICA; kidney function has returned to baseline. Patient experienced hypotension; losartan was discontinued, and metoprolol dose was decreased. I did instruct patient to hold blood pressure medications if systolic BP < 110. Patient will have close follow-up with Dr. Montalvo in 2 weeks. I did instruct patient on new medication changes. Patient will follow-up with PCP in 1 week. There were no complaints or new complaints upon discharge, all questions and concerns were answered. Patient was advised to return to the ER or call 911 if any headaches, dizziness, shortness of breath, chest pain, bleeding, fevers, or worsening of medical condition. Patient/Family was counseled about treatment plan, medications, possible side effects, patientverbalized understanding. All questions were answered to the best of my ability. The patient symptoms improved and they are okay to be DC. Condition at Discharge: Stable Final Diagnosis/Problems List CP- r/t CHF exacerbation ACS ruled out CHF exacerbation Presence of dual chamber AICD Nonischemic cardiomyopathy Acute on chronic Combined systolic and diastolic HF COPD CKD 3a Tobacco use Discharge Disposition: Home Discharge Instruct/Medications Diet: Cardiac 2g Na,low cholest Activity: No Restrictions, As Tolerated Follow Up/Referral: pcp 1 week cardiology 2 weeks Medications: Decreased metoprolol dose dc'd losartan Discharge Statement: "Patient was advised to return to the ER or call 911 if any headaches, dizziness, shortness of breath, chest pain, abdominal pain, bleeding, fevers, or worsening of medical condition. Patient was counseled about treatment plan, medications, possible side effects, patientverbalized understanding. All questions were answered to the best of my ability. This discharge took greater then 30 minutes in planning, reviewing documentation, counseling the patient, and discussing with other team members." ASSESSMENT ASSESSMENT Assessment CP- r/t CHF exacerbation ACS ruled out CHF exacerbation MANJULA LAN NP Jul 26, 2024 15:29
[2024-07-26 16:51] VITALS: BP 96/60; PULSE 79; RESP 17; TEMP 98; O2SAT 94
[2024-07-26 17:00] VITALS: BP 96/60; PULSE 79; RESP 17; TEMP 98; O2SAT 94
== END 2024-07-26 17:26 | disposition home or self-care (01) | DRG 194 ==
LOC: EDBD 11:45 → ER 11:45 → OVERFLOW 13:46 → TELE-WESTW 21:53
PROVIDERS: ADMIT Nurse Practitioner Family; ATTEND Nurse Practitioner Family
DX: I13.0 Hypertensive heart and chronic kidney disease with heart failure and stage 1 through stage 4 chronic kidney disease, or unspecified chronic kidney disease (principal); N17.9 Acute kidney failure, unspecified; I42.0 Dilated cardiomyopathy; F41.9 Anxiety disorder, unspecified; K21.9 Gastro-esophageal reflux disease without esophagitis; I25.110 Atherosclerotic heart disease of native coronary artery with unstable angina pectoris; I50.43 Acute on chronic combined systolic (congestive) and diastolic (congestive) heart failure; N18.31 Chronic kidney disease, stage 3a; J44.9 Chronic obstructive pulmonary disease, unspecified; F17.210 Nicotine dependence, cigarettes, uncomplicated; Z95.810 Presence of automatic (implantable) cardiac defibrillator; Z88.8 Allergy status to other drugs, medicaments and biological substances; Z79.82 Long term (current) use of aspirin; Z79.84 Long term (current) use of oral hypoglycemic drugs; Z79.899 Other long term (current) drug therapy; Z88.5 Allergy status to narcotic agent; Z83.3 Family history of diabetes mellitus; Z82.49 Family history of ischemic heart disease and other diseases of the circulatory system
CPT/HCPCS: 36415; 71045; 80048; 80053; 80061; 80307; 81001; 83735; 83880; 84484; 85025; 87081; 93005; 96374; 99291; G0378

== ENCOUNTER 2024-07-30 10:28 | Inpatient (IN) | payer MEDICAID ==
[~2024-07-30] VITALS: Ht 172.7 cm; Wt 83.0 kg
[~2024-07-30 10:28] MED LIST changes: -LEVO125T7 PO; -LOSA-533 PO; -MET25T PO; +METO25TA5 PO
--- NOTE | 2024-07-30 10:35 | ED.PDOC ---
HPI Comments HPI: 63-year-old male brought in by EMS presents with a chief complaint of chest pain x onset this morning. Patient states that his pain is localized to his left chest wall, nonradiating, describes as pressure, and reports that he has felt this similar pain before in the past. Patient mentions that he was recently here x 1 week ago for the same chief complaint and was told that he was "volume overloaded". Patient mentions that he has been compliant with his medications an d takes 80mg Lasix daily. Patient is also on a blood thinner, but cannot recall the name. PMHx: CHF, Anxiety, CAD, CKF, COPD, DM, Depression, GERD, HLD, HTN, IN, Thyroid Disease PSHx: Pacemaker, Defibrillator SHx: Tobacco smoker HPI: Poor Historian. REVIEW OF SYSTEMS: CONSTITUTIONAL: Denies acute: fever, diaphoresis, chills, generalized weakness. HEAD: Denies acute: headache, photophobia Eyes: Denies acute: Double vision, vision loss, eye pain, eye discharge. EARS: Denies acute: tinnitus, hearing loss, ear discharge, ear pain, THROAT: Denies acute: sore throat, swelling, difficulty swallowing , pain with swallowi ng, change in voice. NECK: Denies acute: neck pain, neck swelling, stiff neck. HEART: Denies acute : palpitations, LUNGS: Denies acute: SOB, wheezing, cough, hemoptysis ABDOMEN: Denies acute: abdominal pain, Nausea, Vomiting, diarrhea, melena , hematemesis, hematochezia SKIN: Denies acute: rash, redness, lesions, itchiness. EXTREMITIES: Denies acute: calf pain, numbness, tingling, weakness, denies pain in extremity. Denies acute: Low back pain. Neuro: Denies acute: focal neurological deficit, motor or sensory focal neurological deficit, tremors, seizure like activity, confusion, dizziness, change in mental status, loss of bowel or bladder function, cauda equina like symptoms. : Denies acute: dysuria, hematuria, flank pain, increase in urinary frequency. PSYCH: Denies acute: hallucination, suicidal ideation, homicidal ideation. PHYSICAL EXAM: General: no acute distress, awake and alert. Head: normocephalic, atraumatic. Neck: supple, trachea is midline, no swelling. Throat: Normal phonation. Eyes:, no erythema, no purulent discharge, no proptosis, no icterus. Heart: regular rate, regular rhythm, no significant murmur appreciated. Lungs: no apparent respiratory distress, Able to speak in full sentences. No wheezing, no rhonchi, no crackles. No stridors Clear to auscultation bilaterally. Abdomen: non tender to palpation, non distended, soft, no guarding, no rebound, + bowel sounds. Evaluation of the left chest wall were patient complains of pain. No apparent erythema or swelling. The area is tender to palpation around the left nipple area. Neuro: Awake, Alert, oriented to name, self, situation, follows commands GCS=15. Speech is normal. Skin: no petechia, no purpura, no cyanosis, non-pale, not jaundice. Lower extremities: --no - Pitting edema no deformity, no focal swelling, no calf TTP. Makes eye contact. moves all four extremities. Face: no apparent facial droop. ED COURSE: Time Seen by MD: 10:24 Primary Care Provider: haily Reviewed Notes: Nurses Notes, Medications, Allergies Allergies: Coded Allergies: Empagliflozin (Verified Allergy, Severe, 07/24/24) Morphine (Unverified Allergy, Unknown, 04/18/22) SEVERE BRADYCARDIA Home Meds Active Scripts Metoprolol Tartrate (Metoprolol Tartrate) 25 Mg Tab, 0.5 TAB PO BID for 30 Days, #30 TAB 1 Refill Prov:MANJULA LAN KNITTING SUPERVISOR 07/26/24 Aspirin (Aspirin Low Dose) 81 Mg Tab, 81 MG PO DAILY for 30 Days, #30 TAB Prov:MANJULA LAN KNITTING SUPERVISOR 07/12/24 Potassium Chloride (Potassium Chloride ER) 10 Meq Tab, 10 MEQ PO BID for 30 Days, #60 TAB Prov:MANJULA LAN KNITTING SUPERVISOR 07/11/24 Furosemide (Lasix) 40 Mg Tab, 40 MG PO BID for 30 Days, #60 TAB Prov:MANJULA LAN KNITTING SUPERVISOR 07/11/24 Sacubitril-Valsartan (Entresto 24-26 mg) 1 Tab Tab, 1 TAB PO BID, #180 TAB Prov:EUN LI MD 09/16/23 Reported Medications Levothyroxine Sodium (Levothyroxine Sodium) 137 Mcg Tab, 1 TAB PO DAILY for 70 Days, #70 07/25/24 Albuterol Sulfate (Albuterol Sulfate Hfa) 108 Mcg/Act Aer 07/09/24 Clonazepam (Clonazepam) 0.5 Mg Tab, 1 TAB PO BID for 30 Days, #60 07/04/24 Tamsulosin Hcl (Tamsulosin Hcl) 0.4 Mg Cap, 0.8 MG PO DAILY AFTER MEAL, MG 09/14/23 Discontinued Reported Medications Venlafaxine Hcl (Venlafaxine Hcl Er) 150 Mg Tab, 1 TAB PO DAILY for 30 Days, #30 07/04/24 Dapagliflozin Propanediol (Farxiga) 10 Mg Tab, 1 TAB PO DAILY for 30 Days, #30 09/14/23 Losartan Potassium (Losartan Potassium) 25 Mg Tab, 1 TAB PO DAILY, #90 TAB 1 Refill 04/18/22 Levothyroxine Sodium (Levothyroxine Sodium) 125 Mcg Tab, 1 TAB PO DAILY for 60 Days, #60 07/04/24 Discontinued Scripts Metoprolol Tartrate (Lopressor) 25 Mg Tb, 25 MG PO BID for 30 Days, #60 TAB Prov:MANJULA LAN NP 07/12/24 Information Source: Patient, Emergency Med Personnel Mode of Arrival: EMS Severity: Moderate Timing: Days Duration: Since onset Past Medical History PAST MEDICAL HISTORY: Anxiety, CAD, CHF, CKF, COPD, Depression, DM, GERD, High Lipids, HTN, IN, Thyroid Surgical History: Pacemaker Family History Family History: Family hx of DM, Family hx of Cancer, Family hx of heart herve, Family hx of HTN Social History Smoker: Cigarettes, Less Than 1 Pack/Day Alcohol: Denies ETOH Use Drugs: Denies Drug Use Lives In: Home Was a procedure done? Was a procedure done?: No CP Differential Dx Differential Diagnosis: N/A Differential Diagnosis: Other (Ddx include but not limitied to gastritis, musculoskeletal pain, radiculopathy, atypical chest pain, dissection, aneurysm, ACS, unstable angina, hiatal hernia, GERD, anxiety, costochondritis, PE, pneumothroax, neoplasm, cardiac ischemia, drug abuse, anemia.) X-Ray, Labs, Meds, VS Vital Signs Date Time Temp Pulse Resp B/P (MAP) Pulse Ox O2 Delivery O2 Flow Rate FiO2 07/30/24 14:00 77 16 112/74 (87) 97 07/30/24 12:13 88/48 07/30/24 12:00 75 07/30/24 12:00 84 16 95/80 (85) 95 07/30/24 11:33 70 07/30/24 11:02 97.9 62 16 100/62 (75) 97 97.9 07/30/24 11:02 109 07/30/24 10:37 98.1 76 20 118/81 (93) 98 98.1 07/30/24 10:28 79 Lab Test 07/30/24 13:57 07/30/24 11:35 07/30/24 10:35 Range/Units Troponin I High Sensitivity 27 24 28 </=54 ng/L White Blood Count 7.2 4.4-10.8 10^3/uL Red Blood Count 5.33 4.5-5.90 10^6/uL Hemoglobin 16.0 13.5-17.5 g/dL Hematocrit 48.8 41.0-53.0 % Mean Corpuscular Volume 91.6 80.0-100.0 fL Mean Corpuscular Hemoglobin 30.1 28.0-32.0 pg Mean Corpuscular Hemoglobin Concent 32.8 32.0-36.0 g/dL Red Cell Distribution Width 15.2 H 11.8-14.3 % Platelet Count 245 140-450 10^3/uL Mean Platelet Volume 8.4 6.9-10.8 fL Neutrophils (%) (Auto) 60.1 37.0-80.0 % Lymphocytes (%) (Auto) 18.6 10.0-50.0 % Monocytes (%) (Auto) 11.4 0.0-12.0 % Eosinophils (%) (Auto) 9.2 H 0.0-7.0 % Basophils (%) (Auto) 0.7 0.0-2.0 % Neutrophils # (Auto) 4.3 1.6-8.6 10 ^3/uL Lymphocytes # (Auto) 1.3 0.4-5.4 10 ^3/uL Monocytes # (Auto) 0.8 0-1.3 10 ^3/uL Eosinophils # (Auto) 0.7 0-0.8 10 ^3/uL Basophils # (Auto) 0 0-0.2 10 ^3/uL Nucleated Red Blood Cells 0.1 % D-Dimer, Quantitative 0.45 0.0-0.49 mg/L FEU Sodium Level 141 136-145 mmol/L Potassium Level 4.2 3.5-5.1 mmol/L Chloride Level 104 98-107 mmol/L Carbon Dioxide Level 29 20-31 mmol/L Anion Gap 8 5-15 Blood Urea Nitrogen 27 H 9-23 mg/dL Creatinine 1.36 H 0.700-1.30 mg/dL Glomerular Filtration Rate Calc 58 >90 mL/min BUN/Creatinine Ratio 19.9 10.0-20.0 Serum Glucose 97 74-106 mg/dL Lactic Acid Level 1.6 0.4-2.0 mmol/L Calcium Level 10.0 8.7-10.4 mg/dL Total Bilirubin 0.2 0.2-1.0 mg/dL Aspartate Amino Transferase (AST) 21 13-40 U/L Alanine Aminotransferase (ALT) 17 7-40 U/L Alkaline Phosphatase 87 46-116 U/L B-Type Natriuretic Peptide 598.92 0-100 pg/mL Total Protein 7.0 5.7-8.2 g/dL Albumin 4.5 3.2-4.8 g/dL Lipase 49 12-53 U/L Current Medications Medications (Trade) Dose Ordered Sig/Manuel Route Start Time Stop Time Status Last Admin Aspirin (Ecotrin Enteric Coated Tablet) 325 mg ONCE ONCE PO 07/30/24 12:00 07/30/24 12:04 DC 07/30/24 12:15 PATIENT: CODIE HERNANDEZT: [id number]: [id number] : 1960 LOC: ER ROOM / BED: / AGE / SEX: 63 / M ADM STATUS: REG ER SERVICE 1031 ORDERING PHYSICIAN: TERRENCE ALVA DO PROCEDURE(s): CXRP - CHEST PORTABLE REASON: cp ORDER NUMBER(s): [id number], ACCESSION NUMBER(s): [id number] XY CHEST PORTABLE, HISTORY: cp COMPARISON: XY CHEST PORTABLE on DOS: 07/24/24, XY CHEST PORTABLE on DOS: 07/09/24, XY CHEST PORTABLE on DOS: 07/03/24 XY CHEST PORTABLE on DOS: 07/24/24, XY CHEST PORTABLE on DOS: 07/09/24, XY CHEST PORTABLE on DOS: 07/03/24 TECHNICAL DATA: 1 view of the chest was obtained. FINDINGS: Lines and tubes: A pacer is seen. Cardiomediastinal silhouette: Prominent Pulmonary vasculature: normal Lung expansion: normal Lung airspace: normal Lung interstitium: normal Pleura: normal Pneumothorax: no Bones: Unremarkable Other: no IMPRESSION: No acute intrathoracic abnormality. ATED BY: DARRION SMYTH MD DICTATED DATE/TIME: 07/30/241113 SIGNED BY: DARRION SMYTH MD SIGNED DATE/TIME: 07/30/241113 Time of 1ST Reevaluation: 10:54 Reevaluation 1ST: Unchanged Time of 2ND Reevaluation: 22:12 Reevaluation 2ND: Improved Patient Education/Counseling: Diagnosis, Treatment Family Education/Counseling: No Family Present Comments Patient presented with the above HPI.---chest pain---workup was initiated. patient was found with the above mentioned diagnosis. the following medications were ordered: please refer to order lists of meds and tests obtained by myself Dr. Alva. Patient ED course and VS have been stabilized. Patient has been reassessed in the ED and remained in a stable condition. Pertinent incidental findings were discussed with the patient and/or family. Patient/family voices understanding and is agreeable with plan. Patient has been observed in the ED adequate length of time to insure improvement/stability. Escalation of care considered: Consideration of escalation to observation or admission Patient was ADMITTED to the medicine team for further evaluation and treatment of their presentation. All the reports of any imaging studies that were ordered by myself were reviewed by myself. Departure 1 Departure Time of Disposition: 10:37 Impression: Primary Impression: Chest pain Additional Impression: Elevated brain natriuretic peptide (BNP) level Disposition: ADMITTED INPATIENT Admit to: [facility] Condition: Guarded Discharged With: Self Critical Care Note Critical Care Time?: No Heart Score Heart Score: Heart Score Response (Comments) Value History Moderate Suspicious 1 EKG Normal 0 Age 45-64 1 Risk Factors >3 or Hx ASHD 2 Troponin Normal limit 0 Total 4 I personally scribed for TERRENCE ALVA DO ([email or web address]) on 07/30/24 at 10:35. Electronically submitted by Delgado Phan ([email or web address]). I personally scribed for TERRENCE ALVA DO ([email or web address]) on 07/30/24 at 11:53. Electronically submitted by Delgado Phan ([email or web address]). TERRENCE ALVA DO Jul 30, 2024 10:35
[2024-07-30 10:55] LABS: Basophils # (auto) 0 10 ^3/uL (0-0.2); Basophils % (auto) 0.7 % (0.0-2.0); Eosinophils # (auto) 0.7 10 ^3/uL (0-0.8); Eosinophils % (auto) 9.2 % (0.0-7.0); Hematocrit 48.8 % (41.0-53.0); Lymphocytes # (auto) 1.3 10 ^3/uL (0.4-5.4); Lymphocytes % (auto) 18.6 % (10.0-50.0); Mean Corpuscular Hemoglobin 30.1 pg (28.0-32.0); Mean Corpuscular Hgb Conc. 32.8 g/dL (32.0-36.0); Mean Corpuscular Volume 91.6 fL (80.0-100.0); Monocytes # (auto) 0.8 10 ^3/uL (0-1.3); Monocytes % (auto) 11.4 % (0.0-12.0); Neutrophils # (auto) 4.3 10 ^3/uL (1.6-8.6); Neutrophils % (auto) 60.1 % (37.0-80.0); Nucleated Red Blood Cells % 0.1 %; Platelet Count (auto) 245 10^3/uL (140-450); Red Blood Cells 5.33 10^6/uL (4.5-5.90); Red Cell Distribution Width 15.2 % (11.8-14.3); White Blood Cell 7.2 10^3/uL (4.4-10.8)
[2024-07-30 11:02] VITALS: PULSE 109
--- NOTE | 2024-07-30 11:17 | DVH ---
XY CHEST PORTABLE, HISTORY: cp COMPARISON: XY CHEST PORTABLE on DOS: 07/24/24, XY CHEST PORTABLE on DOS: 07/09/24, XY CHEST PORTABLE on DOS: 07/03/24 XY CHEST PORTABLE on DOS: 07/24/24, XY CHEST PORTABLE on DOS: 07/09/24, XY CHEST PORTABLE on DOS: 5 TECHNICAL DATA: 1 view of the chest was obtained. FINDINGS: Lines and tubes: A pacer is seen. Cardiomediastinal silhouette: Prominent Pulmonary vasculature: normal Lung expansion: normal Lung airspace: normal Lung interstitium: normal Pleura: normal Pneumothorax: no Bones: Unremarkable Other: no IMPRESSION: No acute intrathoracic abnormality.
[2024-07-30 11:18] LABS: Alanine Aminotransferase 17 U/L (7-40); Albumin 4.5 g/dL (3.2-4.8); Alkaline Phosphatase 87 U/L (46-116); Anion Gap 8 (5-15); Aspartate Aminotransferase 21 U/L (13-40); BUN/Creatinine Ratio 19.9 (10.0-20.0); Carbon Dioxide 29 mmol/L (20-31); Chloride 104 mmol/L (98-107); Glucose 97 mg/dL (74-106); Potassium 4.2 mmol/L (3.5-5.1); Sodium 141 mmol/L (136-145)
[2024-07-30 11:19] LABS: Bilirubin, Total 0.2 mg/dL (0.2-1.0); Blood Urea Nitrogen 27 mg/dL (9-23)
[2024-07-30] MEDS: NITROGLYCERIN 0.4 MG SL TAB SL ONE (12:13)
[2024-07-30] MEDS: ASPirin-EC 325mg tab PO ONE (12:15)
--- NOTE | 2024-07-30 14:52 | DVHHP2 ---
Admitting Diagnosis: Chest pain History of Present Illness 63 y/o male patient presents with c/o chest pain. Patient states he was recently seen at this facility for same complaint and was told he had fluid overload. Patient states he has been compliant with his Lasix. While in the emergency department the patient was evaluated by the provider, As per provider: Labs, vital signs, and imagining monitored. Patient will be admitted for further evaluation and treatment. I discussed admission with the patient/family and is in agreement to treatment plan Patient Family History: Alcoholism FH: arrhythmia G8 MOTHER FH: breast cancer G8 SISTER, , Cause: [place] (myocardial infarction) FH: diabetes mellitus FH: heart attack G8 FATHER, , Cause: [place] (myocardial infarction) G8 BROTHER, , Cause: [place] (myocardial infarction) Family history: Cardiovascular disease G8 FATHER, , Cause: [place] (myocardial infarction), Onset:40s - 50 Family history: Diabetes mellitus G8 MOTHER, Onset:40s - 50 G8 FATHER, , Cause: [place] (myocardial infarction) G8 SISTER, , Cause: [place] (myocardial infarction) Sister Allergies: Coded Allergies: Empagliflozin (Verified Allergy, Severe, 07/24/24) Morphine (Unverified Allergy, Unknown, 04/18/22) SEVERE BRADYCARDIA Home Meds Active Scripts Metoprolol Tartrate (Metoprolol Tartrate) 25 Mg Tab, 0.5 TAB PO BID for 30 Days, #30 TAB 1 Refill Prov:MANJULA LAN NP 07/26/24 Aspirin (Aspirin Low Dose) 81 Mg Tab, 81 MG PO DAILY for 30 Days, #30 TAB Prov:MANJULA LAN ELECTRONIC BENCH TECHNICIAN 07/12/24 Potassium Chloride (Potassium Chloride ER) 10 Meq Tab, 10 MEQ PO BID for 30 Days, #60 TAB Prov:MANJULA LAN NP 07/11/24 Furosemide (Lasix) 40 Mg Tab, 40 MG PO BID for 30 Days, #60 TAB Prov:MANJULA LAN ELECTRONIC BENCH TECHNICIAN 07/11/24 Sacubitril-Valsartan (Entresto 24-26 mg) 1 Tab Tab, 1 TAB PO BID, #180 TAB Prov:EUN LI MD 09/16/23 Reported Medications Levothyroxine Sodium (Levothyroxine Sodium) 137 Mcg Tab, 1 TAB PO DAILY for 70 Days, #70 07/25/24 Albuterol Sulfate (Albuterol Sulfate Hfa) 108 Mcg/Act Aer 07/09/24 Clonazepam (Clonazepam) 0.5 Mg Tab, 1 TAB PO BID for 30 Days, #60 07/04/24 Tamsulosin Hcl (Tamsulosin Hcl) 0.4 Mg Cap, 0.8 MG PO DAILY AFTER MEAL, MG 09/14/23 Discontinued Reported Medications Venlafaxine Hcl (Venlafaxine Hcl Er) 150 Mg Tab, 1 TAB PO DAILY for 30 Days, #30 07/04/24 Dapagliflozin Propanediol (Farxiga) 10 Mg Tab, 1 TAB PO DAILY for 30 Days, #30 09/14/23 Losartan Potassium (Losartan Potassium) 25 Mg Tab, 1 TAB PO DAILY, #90 TAB 1 Refill 04/18/22 Levothyroxine Sodium (Levothyroxine Sodium) 125 Mcg Tab, 1 TAB PO DAILY for 60 D ays, #60 07/04/24 Discontinued Scripts Metoprolol Tartrate (Lopressor) 25 Mg Tb, 25 MG PO BID for 30 Days, #60 TAB Prov:MANJULA LAN ELECTRONIC BENCH TECHNICIAN 07/12/24 Current Medications Current Medications Medications (Trade) Dose Ordered Sig/Manuel Route PRN Reason Start Time Stop Time Status Last Admin Temazepam (Restoril) 15 mg QHSP PRN PO FOR INSOMNIA 07/30/24 15:00 Ondansetron HCl (Zofran) 4 mg Q4HP PRN IV NAUSEA / VOMITING 07/30/24 15:00 Docusate Sodium (Colace Capsule) 100 mg BIDPRN PRN PO FOR CONSTIPATION 07/30/24 15:00 Enoxaparin Sodium (Lovenox) 40 mg DAILY SC 07/31/24 10:00 Acetaminophen (Tylenol Tablet) 650 mg Q6HP PRN PO PAIN SCALE 1-3 OR TEMP>100.4 07/30/24 15:00 Nitroglycerin (Ntrostat Sublingual) 0.4 mg Q5MINP PRN SL FOR CHEST PAIN 07/30/24 15:00 Albuterol (Ventolin Hfa) 108 mcg Q4HP PRN IN SHORTNESS OF BREATH 07/30/24 15:00 07/30/24 15:12 DC Aspirin (Ecotrin Enteric Coated Tablet) 81 mg DAILY PO 07/31/24 10:00 Clonazepam (KlonoPIN TABLET) 0.5 mg BID PO 07/30/24 22:00 Furosemide (Lasix Tablet) 40 mg BIDD PO 07/30/24 18:00 Metoprolol Tartrate (Lopressor Tablet) 12.5 mg BID PO 07/30/24 22:00 Sacubitril/ Valsartan (Entresto 24-26 Mg tab) 1 tab BID PO 07/30/24 22:00 Tamsulosin HCl (Flomax) 0.8 mg DAILY PO 07/31/24 10:00 Levothyroxine Sodium (Synthroid Tablet) 112 mcg DAILY@0600 PO 07/31/24 06:00 Venlafaxine HCl (Effexor Xr) 150 mg DAILY PO 07/31/24 10:00 Nitroglycerin (Ntrostat Sublingual) 0.4 mg Q5MIN PRN SL FOR CHEST PAIN 07/30/24 15:00 07/30/24 15:29 DC Pantoprazole Sodium (Protonix Tablet) 40 mg DAILY PO 07/31/24 10:00 Albuterol (Ventolin Medneb) 2.5 mg Q4HPRN NEB 07/30/24 15:15 07/30/24 15:17 DC Albuterol (Ventolin Medneb) 2.5 mg Q4HPRN PRN NEB SHORTNESS OF BREATH 07/30/24 15:30 Levothyroxine Sodium (Synthroid Tablet) 25 mcg DAILY@0600 PO 07/31/24 06:00 Review of Systems Constitutional: denies chills, denies fever, denies malaise Eyes: denies eye pain, denies vision change ENT: denies ear pain, denies headache, denies nasal congestion, denies painful swallowing, denies voice change Cardiovascular: denies chest pain, denies edema, denies orthopnea, denies palpitations, denies paroxysmal nocturnal dyspnea Respiratory: denies cough, denies shortness of breath Gastrointestinal: denies constipation, denies diarrhea, denies nausea, denies vomiting Genitourinary: denies dysuria, denies frequent urination, denies urethral discharge Musculoskeletal: denies back pain, denies joint pain, denies muscle pain Skin: denies bruising, denies itching, denies rash Neurological: denies focal weakness, denies headache, denies sensory changes Psychiatric: denies anxiety, denies depression Endocrine: denies polydipsia, denies polyuria Hematologic/Lymphatic: denies easy bleeding, denies easy bruising, denies enlarged lymph nodes Allergic/Immunologic: denies allergy, denies hives Vital Signs Vital Signs Date Time Temp Pulse Resp B/P (MAP) Pulse Ox O2 Delivery O2 Flow Rate FiO2 07/30/24 18:44 20 0 Room Air* 0 21 07/30/24 16:00 78 102/59 (73) 07/30/24 15:51 97.9 97.9 Physical Exam General Appearance: alert, no distress HEENT: EOMI, PERRLA, normal external inspect of ears, no icterus, no nasal drainage Neck: no carotid bruit, no jugular venous distention (JVD), no lymphadenopathy Chest: normal thorax Respiratory: clear to auscultation, normal air movement Cardiovascular: regular rate and rhythm, no diastolic murmur, no jugular venous distention (JVD), no rub, no systolic murmur Abdominal: soft, no hepatomegaly, no mass, no splenomegaly, no tenderness Genitourinary: grossly normal external Musculoskeletal: no joint tenderness, no swelling Extremities: normal pulses, no calf tenderness, no clubbing, no cyanosis, no edema Skin: no bruising, no jaundice, no rash Neurological: alert, No focal deficit Results Labs Test 07/30/24 13:57 07/30/24 10:35 Range/Units Troponin I High Sensitivity 27 </=54 ng/L White Blood Count 7.2 4.4-10.8 10^3/uL Red Blood Count 5.33 4.5-5.90 10^6/uL Hemoglobin 16.0 13.5-17.5 g/dL Hematocrit 48.8 41.0-53.0 % Mean Corpuscular Volume 91.6 80.0-100.0 fL Mean Corpuscular Hemoglobin 30.1 28.0-32.0 pg Mean Corpuscular Hemoglobin Concent 32.8 32.0-36.0 g/dL Red Cell Distribution Width 15.2 H 11.8-14.3 % Platelet Count 245 140-450 10^3/uL Mean Platelet Volume 8.4 6.9-10.8 fL Neutrophils (%) (Auto) 60.1 37.0-80.0 % Lymphocytes (%) (Auto) 18.6 10.0-50.0 % Monocytes (%) (Auto) 11.4 0.0-12.0 % Eosinophils (%) (Auto) 9.2 H 0.0-7.0 % Basophils (%) (Auto) 0.7 0.0-2.0 % Neutrophils # (Auto) 4.3 1.6-8.6 10 ^3/uL Lymphocytes # (Auto) 1.3 0.4-5.4 10 ^3/uL Monocytes # (Auto) 0.8 0-1.3 10 ^3/uL Eosinophils # (Auto) 0.7 0-0.8 10 ^3/uL Basophils # (Auto) 0 0-0.2 10 ^3/uL Nucleated Red Blood Cells 0.1 % D-Dimer, Quantitative 0.45 0.0-0.49 mg/L FEU Sodium Level 141 136-145 mmol/L Potassium Level 4.2 3.5-5.1 mmol/L Chloride Level 104 98-107 mmol/L Carbon Dioxide Level 29 20-31 mmol/L Anion Gap 8 5-15 Blood Urea Nitrogen 27 H 9-23 mg/dL Creatinine 1.36 H 0.700-1.30 mg/dL Glomerular Filtration Rate Calc 58 >90 mL/min BUN/Creatinine Ratio 19.9 10.0-20.0 Serum Glucose 97 74-106 mg/dL Lactic Acid Level 1.6 0.4-2.0 mmol/L Calcium Level 10.0 8.7-10.4 mg/dL Total Bilirubin 0.2 0.2-1.0 mg/dL Aspartate Amino Transferase (AST) 21 13-40 U/L Alanine Aminotransferase (ALT) 17 7-40 U/L Alkaline Phosphatase 87 46-116 U/L B-Type Natriuretic Peptide 598.92 0-100 pg/mL Total Protein 7.0 5.7-8.2 g/dL Albumin 4.5 3.2-4.8 g/dL Lipase 49 12-53 U/L Plan 1. Unstable angina Monitor, cardiology consult, trend troponin, monitor EKG 2. HLD Monitor, medications 3. GERD Monitor, PPI 4. Hypothyroid Monitor, medications 5. Pacemaker Monitor, cardiology consult 6. Smoker Monitor, smoking cessation 7. Acute on chronic combined systolic and diastolic CHF Monitor, cardiology consult, diuretics 8. Nonischemic cardiomyopathy Monitor Plan discussed with: Patient, Other MANJULA LAN NP Jul 30, 2024 14:52
[2024-07-30] MEDS ORDERED: DOCUSATE SOD 100 MG CAP PO PRN (15:00)
[2024-07-30] MEDS ORDERED: NITROGLYCERIN 0.4 MG SL TAB SL PRN ×2 (15:00)
[2024-07-30] MEDS ORDERED: ALBUTEROL SULF HFA 90MCG INH 200DOSE IN PRN (15:00)
[2024-07-30] MEDS ORDERED: ALBUTEROL SULF 2.5 MG/0.5ML(0.5%) NEB SOLN NEB SCH (15:15)
[2024-07-30] MEDS ORDERED: ALBUTEROL SULF 2.5 MG/0.5ML(0.5%) NEB SOLN NEB PRN (15:30)
[2024-07-30 15:51] VITALS: BP 112/74; PULSE 77; RESP 16; TEMP 97.9; O2SAT 97
[2024-07-30 18:44] VITALS: RESP 20; O2SAT 0
[2024-07-30 20:00] VITALS: PULSE 81
[2024-07-30 21:00] VITALS: BP 114/73; PULSE 85; RESP 14; TEMP 98.1; O2SAT 97
[2024-07-30 21:08] VITALS: O2SAT 98
[2024-07-30] MEDS: SACUBITRIL-VALSARTAN 24mg/26mg TAB PO SCH (21:50)
[2024-07-30] MEDS: clonazePAM 0.5 MG TAB PO SCH (21:50)
[2024-07-30] MEDS: METOPROLOL TARTRATE 25 MG TAB PO SCH (21:50)
[2024-07-31] VITALS (10 sets, daily range): BP systolic 91–119; BP diastolic 58–71; PULSE 64–95; RESP 15–19; TEMP 97.3–98.4; O2SAT 93–99
[2024-07-31] MEDS: LEVOTHYROXINE SODIUM 112 MCG TAB PO SCH (05:52)
[2024-07-31] MEDS: LEVOTHYROXINE SODIUM 25 MCG TAB PO SCH (05:52)
[2024-07-31] MEDS: FUROSEMIDE 40 MG TAB PO SCH (05:53)
[2024-07-31 06:16] LABS: Basophils # (auto) 0.2 10 ^3/uL (0-0.2); Basophils % (auto) 2.6 % (0.0-2.0); Eosinophils # (auto) 0.7 10 ^3/uL (0-0.8); Eosinophils % (auto) 9.2 % (0.0-7.0); Hematocrit 50.8 % (41.0-53.0); Hemoglobin 16.7 g/dL (13.5-17.5); Lymphocytes # (auto) 1.6 10 ^3/uL (0.4-5.4); Lymphocytes % (auto) 21.7 % (10.0-50.0); Mean Corpuscular Hemoglobin 30.1 pg (28.0-32.0); Mean Corpuscular Hgb Conc. 32.9 g/dL (32.0-36.0); Mean Corpuscular Volume 91.2 fL (80.0-100.0); Monocytes # (auto) 0.7 10 ^3/uL (0-1.3); Monocytes % (auto) 10.2 % (0.0-12.0); Neutrophils # (auto) 4.1 10 ^3/uL (1.6-8.6); Neutrophils % (auto) 56.3 % (37.0-80.0); Platelet Count (auto) 241 10^3/uL (140-450); Red Blood Cells 5.56 10^6/uL (4.5-5.90); White Blood Cell 7.3 10^3/uL (4.4-10.8)
[2024-07-31 06:31] LABS: Alanine Aminotransferase 17 U/L (7-40); Albumin 4.2 g/dL (3.2-4.8); Alkaline Phosphatase 72 U/L (46-116); Anion Gap 8 (5-15); Aspartate Aminotransferase 21 U/L (13-40); BUN/Creatinine Ratio 19.5 (10.0-20.0); Bilirubin, Total 0.5 mg/dL (0.2-1.0); Calcium 9.9 mg/dL (8.7-10.4); Carbon Dioxide 28 mmol/L (20-31); Chloride 103 mmol/L (98-107); Glucose 97 mg/dL (74-106); Potassium 4.2 mmol/L (3.5-5.1); Sodium 139 mmol/L (136-145); Total Protein 6.7 g/dL (5.7-8.2)
[2024-07-31 06:33] LABS: Blood Urea Nitrogen 29 mg/dL (9-23)
--- NOTE | 2024-07-31 07:17 | ECG ---
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
[2024-07-31] MEDS: TAMSULOSIN HYDROCHLORIDE 0.4 MG CAP PO SCH (10:00)
[2024-07-31] MEDS: VENLAFAXINE HCL 37.5mg XR cap PO SCH (10:00)
[2024-07-31] MEDS: ENOXAPARIN SOD 40 MG/0.4 ML SYRINGE SC SCH (10:00)
[2024-07-31] MEDS: PANTOPRAZOLE 40 MG TAB PO SCH (10:17)
[2024-07-31] MEDS: ASPirin-EC 81 mg tab PO SCH (10:19)
--- NOTE | 2024-07-31 12:46 | DVHPN2 ---
Progress Note - Dictate Date Seen: Jul 31, 2024 Medical Necessity Reason Pt with a Central, PICC or Fol: No vital signs Vital Sign Date Time Temp Pulse Resp B/P (MAP) Pulse Ox O2 Delivery O2 Flow Rate FiO2 07/31/24 10:19 64 118/70 07/31/24 09:07 93 Room Air* 0 21 07/31/24 09:00 97.9 16 97.9 Total Intake and Output 07/30/24 07/30/24 07/31/24 15:00 23:00 07:00 Intake Total 60 ml 800 ml Output Total 100 ml Balance -40 ml 800 ml medications Current Medications Medications Dose Ordered Sig/Manuel Route Start Time Stop Time Status Last Admin Dose Admin Temazepam 15 mg QHSP PRN PO 07/30/24 15:00 Ondansetron HCl 4 mg Q4HP PRN IV 07/30/24 15:00 Docusate Sodium 100 mg BIDPRN PRN PO 07/30/24 15:00 Enoxaparin Sodium 40 mg DAILY SC 07/31/24 10:00 Acetaminophen 650 mg Q6HP PRN PO 07/30/24 15:00 Nitroglycerin 0.4 mg Q5MINP PRN SL 07/30/24 15:00 Aspirin 81 mg DAILY PO 07/31/24 10:00 07/31/24 10:19 81 MG Clonazepam 0.5 mg BID PO 07/30/24 22:00 07/31/24 10:17 0.5 MG Furosemide 40 mg BIDD PO 07/30/24 18:00 07/31/24 05:53 40 MG Metoprolol Tartrate 12.5 mg BID PO 07/30/24 22:00 07/31/24 10:19 12.5 MG Sacubitril/ Valsartan 1 tab BID PO 07/30/24 22:00 07/31/24 10:16 1 TAB Tamsulosin HCl 0.8 mg DAILY PO 07/31/24 10:00 Levothyroxine Sodium 112 mcg DAILY@0600 PO 07/31/24 06:00 07/31/24 05:52 112 MCG Venlafaxine HCl 150 mg DAILY PO 07/31/24 10:00 Pantoprazole Sodium 40 mg DAILY PO 07/31/24 10:00 07/31/24 10:17 40 MG Albuterol 2.5 mg Q4HPRN PRN NEB 07/30/24 15:30 Levothyroxine Sodium 25 mcg DAILY@0600 PO 07/31/24 06:00 07/31/24 05:52 25 MCG objective General Appearance: alert, no distress HEENT: EOMI, PERRLA, normal external inspect of ears, no icterus, no nasal drainage Neck: no carotid bruit, no jugular venous distention (JVD), no lymphadenopathy Chest: normal thorax Respiratory: clear to auscultation, normal air movement Cardiovascular: regular rate and rhythm, no diastolic murmur, no jugular venous distention (JVD), no rub, no systolic murmur Abdominal: soft, no hepatomegaly, no mass, no splenomegaly, no tenderness Genitourinary: grossly normal external Musculoskeletal: no joint tenderness, no swelling Extremities: normal pulses, no calf tenderness, no clubbing, no cyanosis, no edema Skin: no bruising, no jaundice, no rash Neurological: alert, No focal deficit laboratory and microbiology Laboratory Tests 07/31/24 05:45 Test 07/31/24 05:45 Range/Units Serum Glucose 97 74-106 mg/dL Problem List 1. Unstable angina Monitor, cardiology consult, trend troponin, monitor EKG 2. HLD Monitor, medications 3. GERD Monitor, PPI 4. Hypothyroid Monitor, medications 5. Pacemaker Monitor, cardiology consult 6. Smoker Monitor, smoking cessation 7. Acute on chronic combined systolic and diastolic CHF Monitor, cardiology consult, diuretics 8. Nonischemic cardiomyopathy Monitor Assessment/Plan Subjective: Patient is awake and alert. Objective: Patient is off JUAN PABLO smoking. Home medications were adjusted. Patient was admitted for unstable angina. Plan: Cardiology consult pending. Will await cardiology evaluation. Monitor EKG. DC planning possibly for tomorrow. Plan discussed with: Patient, Other MANJULA LAN NP Jul 31, 2024 12:46
[2024-07-31] MEDS: ACETAMINOPHEN 325 MG TAB PO PRN (13:08)
[2024-07-31] MEDS: TEMAZEPAM 15 MG CAP PO PRN (22:18)
[2024-08-01] MEDS: ONDANSETRON HCL 4 MG/2 ML VIAL IV PRN (02:56)
[2024-08-01 05:00] VITALS: BP 111/66; PULSE 74; RESP 18; TEMP 98; O2SAT 98
[2024-08-01 07:59] LABS: Basophils # (auto) 0.1 10 ^3/uL (0-0.2); Basophils % (auto) 1.3 % (0.0-2.0); Eosinophils # (auto) 0.5 10 ^3/uL (0-0.8); Eosinophils % (auto) 7.7 % (0.0-7.0); Hematocrit 50.2 % (41.0-53.0); Hemoglobin 16.5 g/dL (13.5-17.5); Lymphocytes # (auto) 1.4 10 ^3/uL (0.4-5.4); Lymphocytes % (auto) 20.1 % (10.0-50.0); Mean Corpuscular Hgb Conc. 32.8 g/dL (32.0-36.0); Mean Corpuscular Volume 91.3 fL (80.0-100.0); Monocytes # (auto) 0.7 10 ^3/uL (0-1.3); Neutrophils # (auto) 4.3 10 ^3/uL (1.6-8.6); Neutrophils % (auto) 60.9 % (37.0-80.0); Nucleated Red Blood Cells % 0.1 %; Platelet Count (auto) 247 10^3/uL (140-450); White Blood Cell 7.1 10^3/uL (4.4-10.8)
[2024-08-01 08:00] VITALS: PULSE 83
[2024-08-01 08:21] LABS: Anion Gap 8 (5-15); Carbon Dioxide 29 mmol/L (20-31); Chloride 101 mmol/L (98-107); Potassium 4.1 mmol/L (3.5-5.1); Sodium 138 mmol/L (136-145)
[2024-08-01 08:22] LABS: Calcium 9.7 mg/dL (8.7-10.4)
[2024-08-01 08:27] LABS: Glucose 105 mg/dL (74-106)
[2024-08-01 08:28] LABS: BUN/Creatinine Ratio 23.2 (10.0-20.0); Blood Urea Nitrogen 36 mg/dL (9-23); Magnesium 2.3 mg/dL (1.6-2.6)
[2024-08-01 08:54] VITALS: BP 108/71; PULSE 81; RESP 17; TEMP 97.5; O2SAT 95
--- NOTE | 2024-08-01 08:55 | DVHINCON2 ---
Date of service: Aug 01, 2024 History of Present Illness 63 y/o male patient presents with c/o chest pain. Patient states he was recently seen at this facility for same complaint and was told he had fluid overload. Patient states he has been compliant with his Lasix. While in the emergency department the patient was evaluated by the provider, As per provider: Labs, vital signs, and imagining monitored. Patient will be admitted for further evaluation and treatment. I discussed admission with the patient/family and is in agreement to treatment plan Past Medical History Patient Family History: Alcoholism FH: arrhythmia G8 MOTHER FH: breast cancer G8 SISTER, , Cause: [place] (myocardial infarction) FH: diabetes mellitus FH: heart attack G8 FATHER, , Cause: [place] (my[place] infarction) G8 BROTHER, , Cause: [place] (my[place] infarction) Family history: Cardiovascular disease G8 FATHER, , Cause: [place] (myocardial infarction), Onset:40's - 50 Family history: Diabetes mellitus G8 MOTHER, Onset:40s - 50 G8 FATHER, , Cause: [place] (myocardial infarction) G8 SISTER, , Cause: [place] (myocardial infarction) Sister Allergies and Medications Past Medical History reviewed Family History: Alcoholism FH: arrhythmia G8 MOTHER FH: breast cancer G8 SISTER, , Cause: [place] (myocardial infarction) FH: diabetes mellitus FH: heart attack G8 FATHER, , Cause: [place] (myocardial infarction) G8 BROTHER, , Cause: [place] (myocardial infarction) Family history: Cardiovascular disease G8 FATHER, , Cause: [place] (myocardial infarction), Onset:40s - 50 Family history: Diabetes mellitus G8 MOTHER, Onset:40's - 50 G8 FATHER, , Cause: [place] (myocardial infarction) G8 SISTER, , Cause: [place] (myocardial infarction) Sister Allergies: Coded Allergies: Empagliflozin (Verified Allergy, Severe, 07/24/24) Morphine (Unverified Allergy, Unknown, 04/18/22) SEVERE BRADYCARDIA Home Meds Active Scripts Metoprolol Tartrate (Metoprolol Tartrate) 25 Mg Tab, 0.5 TAB PO BID for 30 Days, #30 TAB 1 Refill Prov:MANJULA LAN ARTIFICIAL PEARL MAKER 07/26/24 Aspirin (Aspirin Low Dose) 81 Mg Tab, 81 MG PO DAILY for 30 Days, #30 TAB Prov:MANJULA LAN ARTIFICIAL PEARL MAKER 07/12/24 Potassium Chloride (Potassium Chloride ER) 10 Meq Tab, 10 MEQ PO BID for 30 Days, #60 TAB Prov:MANJULA LAN Radha ARTIFICIAL PEARL MAKER 07/11/24 Furosemide (Lasix) 40 Mg Tab, 40 MG PO BID for 30 Days, #60 TAB Prov:MANJULA LAN Radha ARTIFICIAL PEARL MAKER 07/11/24 Sacubitril-Valsartan (Entresto 24-26 mg) 1 Tab Tab, 1 TAB PO BID, #180 TAB Prov:EUN LI MD 09/16/23 Reported Medications Levothyroxine Sodium (Levothyroxine Sodium) 137 Mcg Tab, 1 TAB PO DAILY for 70 Days, #70 07/25/24 Albuterol Sulfate (Albuterol Sulfate Hfa) 108 Mcg/Act Aer 07/09/24 Clonazepam (Clonazepam) 0.5 Mg Tab, 1 TAB PO BID for 30 Days, #60 07/04/24 Tamsulosin Hcl (Tamsulosin Hcl) 0.4 Mg Cap, 0.8 MG PO DAILY AFTER MEAL, MG 09/14/23 Discontinued Reported Medications Venlafaxine Hcl (Venlafaxine Hcl Er) 150 Mg Tab, 1 TAB PO DAILY for 30 Days, #30 07/04/24 Dapagliflozin Propanediol (Farxiga) 10 Mg Tab, 1 TAB PO DAILY for 30 Days, #30 09/14/23 Losartan Potassium (Losartan Potassium) 25 Mg Tab, 1 TAB PO DAILY, #90 TAB 1 Refill 04/18/22 Levothyroxine Sodium (Levothyroxine Sodium) 125 Mcg Tab, 1 TAB PO DAILY for 60 Days, #60 07/04/24 Discontinued Scripts Metoprolol Tartrate (Lopressor) 25 Mg Tb, 25 MG PO BID for 30 Days, #60 TAB Prov:MANJULA LAN Radha ARTIFICIAL PEARL MAKER 07/12/24 Current Medications Current Medications Medications (Trade) Dose Ordered Sig/Manuel Route PRN Reason Start Time Stop Time Status Last Admin Enoxaparin Sodium (Lovenox) 40 mg DAILY SC 07/31/24 10:00 Aspirin (Ecotrin Enteric Coated Tablet) 81 mg DAILY PO 07/31/24 10:00 07/31/24 10:19 Tamsulosin HCl (Flomax) 0.8 mg DAILY PO 07/31/24 10:00 07/31/24 12:46 DC Venlafaxine HCl (Effexor Xr) 150 mg DAILY PO 07/31/24 10:00 07/31/24 12:46 DC Pantoprazole Sodium (Protonix Tablet) 40 mg DAILY PO 07/31/24 10:00 07/31/24 10:17 Tamsulosin HCl (Flomax) 0.4 mg BID PO 08/01/24 10:00 Review of Systems 10 pt ros otherwise negative Vital Signs Vital Signs Date Time Temp Pulse Resp B/P (MAP) Pulse Ox O2 Delivery O2 Flow Rate FiO2 08/01/24 08:54 97.5 81 17 108/71 (83) 95 97.5 07/31/24 20:00 Room Air* 0 21 Physical Exam nad s1 s2 rrr ctab soft nt/nd no edema Labs/Diagnostic Data Labs Test 08/01/24 06:11 07/31/24 12:46 07/31/24 05:45 07/30/24 13:57 Range/Units White Blood Count 7.1 4.4-10.8 10^3/uL Red Blood Count 5.50 4.5-5.90 10^6/uL Hemoglobin 16.5 13.5-17.5 g/dL Hematocrit 50.2 41.0-53.0 % Mean Corpuscular Volume 91.3 80.0-100.0 fL Mean Corpuscular Hemoglobin 30.0 28.0-32.0 pg Mean Corpuscular Hemoglobin Concent 32.8 32.0-36.0 g/dL Red Cell Distribution Width 15.0 H 11.8-14.3 % Platelet Count 247 140-450 10^3/uL Mean Platelet Volume 9.0 6.9-10.8 fL Neutrophils (%) (Auto) 60.9 37.0-80.0 % Lymphocytes (%) (Auto) 20.1 10.0-50.0 % Monocytes (%) (Auto) 10.0 0.0-12.0 % Eosinophils (%) (Auto) 7.7 H 0.0-7.0 % Basophils (%) (Auto) 1.3 0.0-2.0 % Neutrophils # (Auto) 4.3 1.6-8.6 10 ^3/uL Lymphocytes # (Auto) 1.4 0.4-5.4 10 ^3/uL Monocytes # (Auto) 0.7 0-1.3 10 ^3/uL Eosinophils # (Auto) 0.5 0-0.8 10 ^3/uL Basophils # (Auto) 0.1 0-0.2 10 ^3/uL Nucleated Red Blood Cells 0.1 % Sodium Level 138 136-145 mmol/L Potassium Level 4.1 3.5-5.1 mmol/L Chloride Level 101 98-107 mmol/L Carbon Dioxide Level 29 20-31 mmol/L Anion Gap 8 5-15 Blood Urea Nitrogen 36 H 9-23 mg/dL Creatinine 1.55 H 0.700-1.30 mg/dL Glomerular Filtration Rate Calc 50 >90 mL/min BUN/Creatinine Ratio 23.2 H 10.0-20.0 Serum Glucose 105 74-106 mg/dL Calcium Level 9.7 8.7-10.4 mg/dL Magnesium Level 2.3 1.6-2.6 mg/dL B-Type Natriuretic Peptide 331.16 0-100 pg/mL POC Glucose 114 H 70-106 mg/dl Total Bilirubin 0.5 0.2-1.0 mg/dL Aspartate Amino Transferase (AST) 21 13-40 U/L Alanine Aminotransferase (ALT) 17 7-40 U/L Alkaline Phosphatase 72 46-116 U/L Total Protein 6.7 5.7-8.2 g/dL Albumin 4.2 3.2-4.8 g/dL Troponin I High Sensitivity 27 </=54 ng/L Test 07/30/24 10:35 Range/Units D-Dimer, Quantitative 0.45 0.0-0.49 mg/L FEU Lactic Acid Level 1.6 0.4-2.0 mmol/L Lipase 49 12-53 U/L Assessment r/o acs NICM hx of ICD non compliance Plan/Recommendation trops are - pt has had cath with [facility] in past 2 years, no severe cad bnp is not very elevated, dc home on HF meds outpt fu Plan discussed with: Patient MAGGIEDEREK MD Aug 01, 2024 08:55
--- NOTE | 2024-08-01 10:01 | ECG ---
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
--- NOTE | 2024-08-01 10:57 | DVHPN2 ---
Progress Note - Dictate Medical Necessity Reason Pt with a Central, PICC or Fol: No vital signs Vital Sign Date Time Temp Pulse Resp B/P (MAP) Pulse Ox O2 Delivery O2 Flow Rate FiO2 08/01/24 08:54 97.5 81 17 108/71 (83) 95 97.5 08/01/24 08:00 Room Air* 0 21 Total Intake and Output 07/31/24 07/31/24 08/01/24 15:00 23:00 07:00 Intake Total 1400 ml 600 ml Balance 1400 ml 600 ml medications Current Medications Medications Dose Ordered Sig/Manuel Route Start Time Stop Time Status Last Admin Dose Admin Temazepam 15 mg QHSP PRN PO 07/30/24 15:00 07/31/24 22:18 15 MG Ondansetron HCl 4 mg Q4HP PRN IV 07/30/24 15:00 08/01/24 02:56 4 MG Docusate Sodium 100 mg BIDPRN PRN PO 07/30/24 15:00 Enoxaparin Sodium 40 mg DAILY SC 07/31/24 10:00 Acetaminophen 650 mg Q6HP PRN PO 07/30/24 15:00 07/31/24 13:08 650 MG Nitroglycerin 0.4 mg Q5MINP PRN SL 07/30/24 15:00 Aspirin 81 mg DAILY PO 07/31/24 10:00 07/31/24 10:19 81 MG Clonazepam 0.5 mg BID PO 07/30/24 22:00 07/31/24 22:14 0.5 MG Furosemide 40 mg BIDD PO 07/30/24 18:00 08/01/24 05:35 40 MG Metoprolol Tartrate 12.5 mg BID PO 07/30/24 22:00 07/31/24 10:19 12.5 MG Sacubitril/ Valsartan 1 tab BID PO 07/30/24 22:00 07/31/24 22:14 1 TAB Levothyroxine Sodium 112 mcg DAILY@0600 PO 07/31/24 06:00 08/01/24 05:35 112 MCG Pantoprazole Sodium 40 mg DAILY PO 07/31/24 10:00 07/31/24 10:17 40 MG Albuterol 2.5 mg Q4HPRN PRN NEB 07/30/24 15:30 Levothyroxine Sodium 25 mcg DAILY@0600 PO 07/31/24 06:00 08/01/24 05:35 25 MCG Tamsulosin HCl 0.4 mg BID PO 08/01/24 10:00 objective General Appearance: alert, no distress HEENT: EOMI, PERRLA, normal external inspect of ears, no icterus, no nasal drainage Neck: no carotid bruit, no jugular venous distention (JVD), no lymphadenopathy Chest: normal thorax Respiratory: clear to auscultation, normal air movement Cardiovascular: regular rate and rhythm, no diastolic murmur, no jugular venous distention (JVD), no rub, no systolic murmur Abdominal: soft, no hepatomegaly, no mass, no splenomegaly, no tenderness Genitourinary: grossly normal external Musculoskeletal: no joint tenderness, no swelling Extremities: normal pulses, no calf tenderness, no clubbing, no cyanosis, no edema Skin: no bruising, no jaundice, no rash Neurological: alert, No focal deficit laboratory and microbiology Laboratory Tests 08/01/24 06:11 Test 08/01/24 06:11 Range/Units Serum Glucose 105 74-106 mg/dL Problem List 1. Unstable angina Monitor, cardiology consult, trend troponin, monitor EKG 2. HLD Monitor, medications 3. GERD Monitor, PPI 4. Hypothyroid Monitor, medications 5. Pacemaker Monitor, cardiology consult 6. Smoker Monitor, smoking cessation 7. Acute on chronic combined systolic and diastolic CHF Monitor, cardiology consult, diuretics 8. Nonischemic cardiomyopathy Monitor Assessment/Plan Subjective: Patient is awake and alert. Objective: Patient is off JUAN PABLO smoking. Home medications were adjusted. Patient was admitted for unstable angina. Plan: Cardiology consult pending. Will await cardiology evaluation. Monitor EKG. OK planning possibly for tomorrow. MANJULA LAN NP Aug 01, 2024 10:57
[2024-08-01] MEDS: TAMSULOSIN HYDROCHLORIDE 0.4 MG CAP PO SCH (11:17)
[2024-08-01 13:00] VITALS: BP 99/67; PULSE 88; RESP 17; TEMP 97.8; O2SAT 96
--- NOTE | 2024-08-01 15:29 | DVHDS2 ---
Discharge Summary Date of Admission Jul 30, 2024 at 14:49 Date of Discharge: Aug 01, 2024 Labs/Diagnostic Data: Laboratory Results Test 08/01/24 06:11 07/31/24 12:46 07/31/24 05:45 07/30/24 13:57 White Blood Count 7.1 10^3/uL (4.4-10.8) Red Blood Count 5.50 10^6/uL (4.5-5.90) Hemoglobin 16.5 g/dL (13.5-17.5) Hematocrit 50.2 % (41.0-53.0) Mean Corpuscular Volume 91.3 fL (80.0-100.0) Mean Corpuscular Hemoglobin 30.0 pg (28.0-32.0) Mean Corpuscular Hemoglobin Concent 32.8 g/dL (32.0-36.0) Red Cell Distribution Width 15.0 % (11.8-14.3) Platelet Count 247 10^3/uL (140-450) Mean Platelet Volume 9.0 fL (6.9-10.8) Neutrophils (%) (Auto) 60.9 % (37.0-80.0) Lymphocytes (%) (Auto) 20.1 % (10.0-50.0) Monocytes (%) (Auto) 10.0 % (0.0-12.0) Eosinophils (%) (Auto) 7.7 % (0.0-7.0) Basophils (%) (Auto) 1.3 % (0.0-2.0) Neutrophils # (Auto) 4.3 10 ^3/uL (1.6-8.6) Lymphocytes # (Auto) 1.4 10 ^3/uL (0.4-5.4) Monocytes # (Auto) 0.7 10 ^3/uL (0-1.3) Eosinophils # (Auto) 0.5 10 ^3/uL (0-0.8) Basophils # (Auto) 0.1 10 ^3/uL (0-0.2) Nucleated Red Blood Cells 0.1 % Sodium Level 138 mmol/L (136-145) Potassium Level 4.1 mmol/L (3.5-5.1) Chloride Level 101 mmol/L (98-107) Carbon Dioxide Level 29 mmol/L (20-31) Anion Gap 8 (5-15) Blood Urea Nitrogen 36 mg/dL (9-23) Creatinine 1.55 mg/dL (0.700-1.30) Glomerular Filtration Rate Calc 50 mL/min (>90) BUN/Creatinine Ratio 23.2 (10.0-20.0) Serum Glucose 105 mg/dL (74-106) Calcium Level 9.7 mg/dL (8.7-10.4) Magnesium Level 2.3 mg/dL (1.6-2.6) B-Type Natriuretic Peptide 331.16 pg/mL (0-100) POC Glucose 114 mg/dl (70-106) Total Bilirubin 0.5 mg/dL (0.2-1.0) Aspartate Amino Transferase (AST) 21 U/L (13-40) Alanine Aminotransferase (ALT) 17 U/L (7-40) Alkaline Phosphatase 72 U/L (46-116) Total Protein 6.7 g/dL (5.7-8.2) Albumin 4.2 g/dL (3.2-4.8) Troponin I High Sensitivity 27 ng/L (</=54) Test 07/30/24 10:35 D-Dimer, Quantitative 0.45 mg/L FEU (0.0-0.49) Lactic Acid Level 1.6 mmol/L (0.4-2.0) Lipase 49 U/L (12-53) Other Laboratory Tests 08/01/24 06:11 Brief Hx & Hospital Course: 63 y/o male patient presents with c/o chest pain. Patient states he was recently seen at this facility for same complaint and was told he had fluid overload. Patient states he has been compliant with his Lasix. While in the emergency department the patient was evaluated by the provider, As per provider: Labs, vital signs, and imagining monitored. Patient was admitted on 07/30/2024 for unstable angina. Troponin levels were negative. EKG had no acute findings. Patient seen by cardiology and pacemaker was interrogated. Chest pain was found to be atypical and most likely related to GERD and acute on chronic combined systolic and diastolic CHF. Patient will continue his home medications and continue diuretics. He is to follow-up with cardiology in 1 to 2 weeks. He is to follow-up with PCP in 1 week. The patient received proper medical treatment and medications. Vital signs, Imaging and Laboratory Work was monitored daily. All consults recommendations were followed as provided. There were no complaints or new complaints upon discharge, all questions and concerns were answered. Patient was advised to return to the ER or call 911 if any headaches, dizziness, shortness of breath, chest pain, bleeding, fevers, or worsening of medical condition. Patient/Family was counseled about treatment plan, medications, possible side effects, patient verbalized understanding. All questions were answered to the best of my ability. The patient symptoms improved and they are okay to be DC. Condition at Discharge: Good Final Diagnosis/Problems List NICM CHF exacerbation Secondary Diagnosis: Unstable angina HLD GERD Hypothyroid Pacemaker Smoker Acute on chronic combined systolic and diastolic CHF Nonischemic cardiomyopathy Discharge Disposition: Home Discharge Instruct/Medications Diet: Cardiac 2g Na,low cholest Activity: No Restrictions, As Tolerated Discharge Statement: "Patient was advised to return to the ER or call 911 if any headaches, dizziness, shortness of breath, chest pain, abdominal pain, bleeding, fevers, or worsening of medical condition. Patient was counseled about treatment plan, medications, possible side effects, patientverbalized understanding. All questions were answered to the best of my ability. This discharge took greater then 30 minutes in planning, reviewing documentation, counseling the patient, and discussing with other team members." ASSESSMENT ASSESSMENT Assessment NICM CHF exacerbation MANJULA LAN NP Aug 01, 2024 15:29
[2024-08-01 16:43] VITALS: BP 98/62; PULSE 67; RESP 19; TEMP 97.3; O2SAT 97
== END 2024-08-01 17:01 | disposition home or self-care (01) | DRG 243 ==
LOC: EDUNIT# 10:28 → ER 10:28 → EDBD 10:28 → OVERFLOW 14:49 → SUATTDRO 15:04 → TELE-CENTR 18:20
PROVIDERS: ADMIT Nurse Practitioner; ATTEND Nurse Practitioner
PROC: 4B02XSZ Measurement of Cardiac Pacemaker, External Approach (ICD-10-PCS; principal; 2024-07-31)
DX: K21.9 Gastro-esophageal reflux disease without esophagitis (principal); I50.43 Acute on chronic combined systolic (congestive) and diastolic (congestive) heart failure; I42.8 Other cardiomyopathies; I25.110 Atherosclerotic heart disease of native coronary artery with unstable angina pectoris; I11.0 Hypertensive heart disease with heart failure; E78.5 Hyperlipidemia, unspecified; F10.20 Alcohol dependence, uncomplicated; F32.A Depression, unspecified; F41.9 Anxiety disorder, unspecified; E03.9 Hypothyroidism, unspecified; E11.9 Type 2 diabetes mellitus without complications; F17.210 Nicotine dependence, cigarettes, uncomplicated; J44.9 Chronic obstructive pulmonary disease, unspecified; Z80.3 Family history of malignant neoplasm of breast; Z82.49 Family history of ischemic heart disease and other diseases of the circulatory system; Z83.3 Family history of diabetes mellitus; Z91.199 Patient's noncompliance with other medical treatment and regimen due to unspecified reason; Z95.810 Presence of automatic (implantable) cardiac defibrillator; Z88.5 Allergy status to narcotic agent; Z88.8 Allergy status to other drugs, medicaments and biological substances; Z79.82 Long term (current) use of aspirin; Z79.899 Other long term (current) drug therapy
CPT/HCPCS: 36415; 71045; 80048; 80053; 82962; 83605; 83690; 83735; 83880; 84484; 85025; 85379; 87081; 93005; G0378; J2405

== ENCOUNTER 2024-08-31 10:58 | Inpatient (IN) | payer MEDICAID ==
[~2024-08-31] VITALS: Ht 172.7 cm; Wt 80.0 kg
[2024-08-31] MEDS: LEVOTHYROXINE SODIUM 112 MCG TAB PO SCH (07:00)
[~2024-08-31 10:58] MED LIST changes: -DAPA1TAB4 PO; -VENL150T34 PO
--- NOTE | 2024-08-31 12:34 | DVH ---
EXAM: XY CHEST PORTABLE HISTORY: cp COMPARISON: XY CHEST PORTABLE on DOS: 07/30/24, XY CHEST PORTABLE on DOS: 07/24/24, XY CHEST PORTABLE o n DOS: 07/09/24, XY CHEST PORTABLE on DOS: 07/03/24, XY CHEST PORTABLE on DOS: 05/16/24 TECHNIQUE: Portable AP view of the chest was performed. FINDINGS: No pneumothorax, consolidative infiltrates, or pulmonary edema. There is central peribronchial thicke belgica. The heart is borderline enlarged. The aortic arch is calcific. Left chest AICD is re-identifie d. There is an old healed fracture of the right mid clavicle. IMPRESSION: 1. Reactive airways disease. The lungs are otherwise clear. 2. Left chest AICD and Borderline cardiomegaly.
[2024-08-31 13:43] LABS: Basophils # (auto) 0.1 10 ^3/uL (0-0.2); Basophils % (auto) 1.6 % (0.0-2.0); Eosinophils % (auto) 14.4 % (0.0-7.0); Hematocrit 53.2 % (41.0-53.0); Hemoglobin 17.4 g/dL (13.5-17.5); Lymphocytes # (auto) 1.1 10 ^3/uL (0.4-5.4); Lymphocytes % (auto) 16.2 % (10.0-50.0); Mean Corpuscular Hemoglobin 29.8 pg (28.0-32.0); Mean Corpuscular Hgb Conc. 32.8 g/dL (32.0-36.0); Mean Corpuscular Volume 90.8 fL (80.0-100.0); Monocytes # (auto) 0.5 10 ^3/uL (0-1.3); Monocytes % (auto) 7.8 % (0.0-12.0); Nucleated Red Blood Cells % 0.1 %; Platelet Count (auto) 230 10^3/uL (140-450); Red Blood Cells 5.86 10^6/uL (4.5-5.90); Red Cell Distribution Width 14.6 % (11.8-14.3); White Blood Cell 6.6 10^3/uL (4.4-10.8)
[2024-08-31 14:02] LABS: Alanine Aminotransferase 14 U/L (7-40); Albumin 4.6 g/dL (3.2-4.8); Alkaline Phosphatase 92 U/L (46-116); Anion Gap 6 (5-15); Aspartate Aminotransferase 19 U/L (13-40); BUN/Creatinine Ratio 14.4 (10.0-20.0); Blood Urea Nitrogen 21 mg/dL (9-23); Calcium 9.5 mg/dL (8.7-10.4); Carbon Dioxide 30 mmol/L (20-31); Chloride 103 mmol/L (98-107); Glucose 98 mg/dL (74-106); Potassium 3.8 mmol/L (3.5-5.1); Sodium 139 mmol/L (136-145); Total Protein 7.3 g/dL (5.7-8.2)
[2024-08-31 14:03] LABS: Bilirubin, Total 0.2 mg/dL (0.2-1.0)
--- NOTE | 2024-08-31 14:20 | ED.PDOC ---
History of Present Illness HPI Comments 63M presents to the ER w/ Pressure like CP which is constant since this morning. Pt states that the CP comes every other day in the same spot and doesn't move nor radiate. PMHx of CHF, Anxiety, CAD, CKF, COPD, DM, Depression, GERD, HLD, HTN, TN and Thyroid Herald. SHx, Pacemaker, Defibrillator. Social Hx of Tobacco use, but denies alcohol and substance use. Denies chills, fever, N/V/D, SOB, No other associated symptoms, modifiers, recent injuries or sick contacts present at this time. Chief Complaint: Shortness of Breath Time Seen by MD: 12:05 Primary Care Provider: haily Reviewed Notes: Nurses Notes, Medications, Allergies Allergies: Coded Allergies: Empagliflozin (Verified Allergy, Severe, 07/24/24) Morphine (Unverified Allergy, Unknown, 04/18/22) SEVERE BRADYCARDIA Home Meds Active Scripts Metoprolol Tartrate (Metoprolol Tartrate) 25 Mg Tab, 0.5 TAB PO BID for 30 Days, #30 TAB 1 Refill Prov:MANJULA LAN GEOGRAPHIC INFORMATION SYSTEMS ANALYST 07/26/24 Aspirin (Aspirin Low Dose) 81 Mg Tab, 81 MG PO DAILY for 30 Days, #30 TAB Prov:MANJULA LAN GEOGRAPHIC INFORMATION SYSTEMS ANALYST 07/12/24 Potassium Chloride (Potassium Chloride ER) 10 Meq Tab, 10 MEQ PO BID for 30 Days, #60 TAB Prov:MANJULA LAN GEOGRAPHIC INFORMATION SYSTEMS ANALYST 07/11/24 Furosemide (Lasix) 40 Mg Tab, 40 MG PO BID for 30 Days, #60 TAB Prov:MANJULA LAN GEOGRAPHIC INFORMATION SYSTEMS ANALYST 07/11/24 Sacubitril-Valsartan (Entresto 24-26 mg) 1 Tab Tab, 1 TAB PO BID, #180 TAB Prov:EUN LI MD 09/16/23 Reported Medications Levothyroxine Sodium (Levothyroxine Sodium) 137 Mcg Tab, 1 TAB PO DAILY for 70 Days, #70 07/25/24 Albuterol Sulfate (Albuterol Sulfate Hfa) 108 Mcg/Act Aer 07/09/24 Clonazepam (Clonazepam) 0.5 Mg Tab, 1 TAB PO BID for 30 Days, #60 07/04/24 Tamsulosin Hcl (Tamsulosin Hcl) 0.4 Mg Cap, 0.8 MG PO DAILY AFTER MEAL, MG 09/14/23 Information Source: Patient Mode of Arrival: Ambulatory Severity: Moderate Timing: Hours Duration: Since onset, Hours Prehospital treatment: None Past Medical History PAST MEDICAL HISTORY: Anxiety, CAD, CHF, CKF, COPD, Depression, DM, GERD, High Lipids, HTN, TN, Thyroid (Herald) Surgical History: Pacemaker Surgical History (Other): Defribulator Family History Family History: Reviewed,noncontributory to illness, Unknown Social History Smoker: Cigarettes, Less Than 1 Pack/Day Alcohol: Denies ETOH Use Drugs: Denies Drug Use Lives In: Home Constitutional: denies: chills, diaphoresis, fatigue, fever, malaise, sweats, weakness, others EENTM: denies: blurred vision, double vision, ear bleeding, ear discharge, ear drainage, ear pain, ear ringing, eye pain, eye redness, hearing loss, mouth pain, mouth swelling, nasal discharge, nose bleeding, nose congestion, nose pain, photophobia, tearing, throat pain, throat swelling, voice changes, others Respiratory: denies: cough, hemoptysis, orthopnea, SOB at rest, shortness of breath, SOB with excertion, stridor, wheezing, others Cardiovascular: reports: chest pain; denies: dizzy spells, diaphoresis, Dyspnea on exertion, edema, irregular heart beat, left arm pain, lightheadedness, palpitations, PND, syncope, others Gastrointestinal: denies: abdomen distended, abdominal pain, blood streaked bowels, constipated, diarrhea, dysphagia, difficulty swallowing, hematemesis, melena, nausea, poor appetite, poor fluid intake, rectal bleeding, rectal pain, vomiting, others Genitourinary: denies: burning, dysuria, flank pain, frequency, hematuria, incontinence, penile discharge, penile sore, pain, testicle pain, testicle swelling, urgency, others Neurological: denies: dizziness, fainting, headache, left sided numbness, left sided weakness, numbness, paresthesia, pre-existing deficit, right sided numbness, right sided weakness, seizure, speech problems, tingling, tremors, weakness, others Musculoskeletal: denies: back pain, gout, joint pain, joint swelling, muscle pain, muscle stiffness, neck pain, others Integumetry: denies: bruises, change in color, change in hair/nails, dryness, laceration, lesions, lumps, rash, wounds, others Allergic/Immunocompromised: denies: Difficulty Healing, Frequent Infections, Hives, Itching, others Hematologic/Lymphatic: denies: anemia, blood clots, easy bleeding, easy bruising, swollen glands, others Endocrine: denies: excessive hunger, excessive sweating, excessive thirst, excessive urination, flushing, intolerance to cold, intolerance to heat, unexplained weight gain, unexplained weight loss, others Psychiatric: denies: anxiety, bipolar disorder, depression, hopeless, panic disorder, schizophrenia, sleepless, suicidal, others All Other Systems: Reviewed and Negative Physical Exam General Appearance: No Apparent Distress, Normal HEENT: Normal ENT Inspection, Pharynx Normal, TMs Normal Neck: Full Range of Motion, Non-Tender, Normal, Normal Inspection Respiratory: Chest Non-Tender, Lungs Clear, No Accessory Muscle Use, No Respiratory Distress, Normal Breath Sounds Cardiovascular: No Edema, No JVD, No Murmur, No Gallop, Normal Peripheral Pulses, Regular Rate/Rhythm Breast Exam: Deferred Gastrointestinal: No Organomegaly, Non Tender, No Pulsatile Mass, Normal Bowel Sounds, Soft Genitalia: Deferred Pelvic: Deferred Rectal: Deferred Extremities: No calf tenderness, Normal capillary refill, Normal inspection, Normal range of motion, Non-tender, No pedal edema Musculoskeletal : Apperance: Normal Neurologic: Alert, flexible nanny II-XII nml as Tested, No Motor Deficits, Normal Affect, Normal Mood, No Sensory Deficits Cerebellar Function: Normal Reflexes: Normal Skin: Dry, Normal Color, Warm Lymphatic: No Adenopathy Was a procedure done? Was a procedure done?: No Differential Dx Considerations may include: acs, unstable angina, AMI, pneumonia, ptx, pe, pleurisy, anxiety X-Ray, Labs, Meds, VS Vital Signs Date Time Temp Pulse Resp B/P (MAP) Pulse Ox O2 Delivery O2 Flow Rate FiO2 08/31/24 14:29 97.5 80 18 92/77 (82) 95 97.5 08/31/24 14:29 80 18 95 Room Air 08/31/24 11:02 79 08/31/24 10:58 98.2 79 24 129/76 (93) 96 98.2 Lab Test 08/31/24 15:16 08/31/24 13:17 08/31/24 11:20 Range/Units Troponin I High Sensitivity 17 17 17 </=54 ng/L White Blood Count 6.6 4.4-10.8 10^3/uL Red Blood Count 5.86 4.5-5.90 10^6/uL Hemoglobin 17.4 13.5-17.5 g/dL Hematocrit 53.2 H 41.0-53.0 % Mean Corpuscular Volume 90.8 80.0-100.0 fL Mean Corpuscular Hemoglobin 29.8 28.0-32.0 pg Mean Corpuscular Hemoglobin Concent 32.8 32.0-36.0 g/dL Red Cell Distribution Width 14.6 H 11.8-14.3 % Platelet Count 230 140-450 10^3/uL Mean Platelet Volume 8.7 6.9-10.8 fL Neutrophils (%) (Auto) 60.0 37.0-80.0 % Lymphocytes (%) (Auto) 16.2 10.0-50.0 % Monocytes (%) (Auto) 7.8 0.0-12.0 % Eosinophils (%) (Auto) 14.4 H 0.0-7.0 % Basophils (%) (Auto) 1.6 0.0-2.0 % Neutrophils # (Auto) 4.0 1.6-8.6 10 ^3/uL Lymphocytes # (Auto) 1.1 0.4-5.4 10 ^3/uL Monocytes # (Auto) 0.5 0-1.3 10 ^3/uL Eosinophils # (Auto) 1.0 H 0-0.8 10 ^3/uL Basophils # (Auto) 0.1 0-0.2 10 ^3/uL Nucleated Red Blood Cells 0.1 % Sodium Level 139 136-145 mmol/L Potassium Level 3.8 3.5-5.1 mmol/L Chloride Level 103 98-107 mmol/L Carbon Dioxide Level 30 20-31 mmol/L Anion Gap 6 5-15 Blood Urea Nitrogen 21 9-23 mg/dL Creatinine 1.46 H 0.700-1.30 mg/dL Glomerular Filtration Rate Calc 53 >90 mL/min BUN/Creatinine Ratio 14.4 10.0-20.0 Serum Glucose 98 74-106 mg/dL Calcium Level 9.5 8.7-10.4 mg/dL Total Bilirubin 0.2 0.2-1.0 mg/dL Aspartate Amino Transferase (AST) 19 13-40 U/L Alanine Aminotransferase (ALT) 14 7-40 U/L Alkaline Phosphatase 92 46-116 U/L Total Protein 7.3 5.7-8.2 g/dL Albumin 4.6 3.2-4.8 g/dL Time of 1ST Reevaluation: 12:35 Reevaluation 1ST: Unchanged Time of 2ND Reevaluation: 18:24 Reevaluation 2ND: Improved Patient Education/Counseling: Diagnosis, Treatment, Prognosis, Need For Follow Up Family Education/Counseling: No Family Present Additional Information The following tests were ordered, and results were reviewed by me: MAGDIEL, LAB, EKG Additional Information was gathered from interviewing the following independent historians: 07/30/24 I reviewed and agreed with the following test results read by other providers:MAGDIEL I discussed treatment and results with medical personnel and: Patient Comprehensive systems review obtained and negative except for what is stated in the HPI. Departure 1 Departure Time of Disposition: 18:24 Impression: Primary Impression: Unstable angina Disposition: ADMITTED INPATIENT Admit to: Tele Condition: Serious Discharged With: Self Critical Care Note Critical Care Time?: Yes (55 min-critical care time only) Critical care comment: due to concerns for sudden deterioration of patient's condition, her care required my highest level of readiness and attention. assessed the patient, ordered the proper tests and treatments, communicated with medical personnel, reassessed the patient's response to treatments, and test results, formulated a treatment plan, consulted with consultants. total critical care time does not include any procedures Stability Stability form required: No Heart Score Heart Score: Heart Score Response (Comments) Value History Highly Suspicious 2 EKG Repolarization Disturb 1 Age 45-64 1 Risk Factors >3 or Hx ASHD 2 Troponin Normal limit 0 Total 6 I personally scribed for XAVIER FRANKLIN MD ([email or web address]) on 08/31/24 at 14:20. Electronically submitted by Daniele Wallace ([email or web address]). XAVIER FRANKLIN MD Aug 31, 2024 14:20
[2024-08-31 14:29] VITALS: BP 92/77; PULSE 80; RESP 18; TEMP 97.5; O2SAT 95
--- NOTE | 2024-08-31 20:39 | DVHHP2 ---
Admitting Diagnosis: Chest pain History of Present Illness 63 y/o male patient with h/o HTN, CHF, MD, CAD, DM, HLD, COPD presents with c/o chest pain. Patient states pain is intermittent and does not radiate. While in the emergency department the patient was evaluated by the provider, As per provider: Labs, vital signs, and imagining monitored. Patient will be admitted for further evaluation and treatment. I discussed admission with the patient/family and is in agreement to treatment plan. Patient Family History: Alcoholism FH: arrhythmia G8 MOTHER FH: breast cancer G8 SISTER, , Cause: MD (myocardial infarction) FH: diabetes mellitus FH: heart attack G8 FATHER, , Cause: MD (myocardial infarction) G8 BROTHER, , Cause: MD (myocardial infarction) Family history: Cardiovascular disease G8 FATHER, , Cause: MD (myocardial infarction), Onset:40s - 50 Family history: Diabetes mellitus G8 MOTHER, Onset:40s - 50 G8 FATHER, , Cause: MD (myocardial infarction) G8 SISTER, , Cause: MD (myocardial infarction) Sister Allergies: Coded Allergies: Empagliflozin (Verified Allergy, Severe, 07/24/24) Morphine (Unverified Allergy, Unknown, 04/18/22) SEVERE BRADYCARDIA Home Meds Active Scripts Metoprolol Tartrate (Metoprolol Tartrate) 25 Mg Tab, 0.5 TAB PO BID for 30 Days, #30 TAB 1 Refill Prov:MANJULA LAN MONORAIL CRANE OPERATOR 07/26/24 Aspirin (Aspirin Low Dose) 81 Mg Tab, 81 MG PO DAILY for 30 Days, #30 TAB Prov:MANJULA LAN MONORAIL CRANE OPERATOR 07/12/24 Potassium Chloride (Potassium Chloride ER) 10 Meq Tab, 10 MEQ PO BID for 30 Days, #60 TAB Prov:MANJULA LAN MONORAIL CRANE OPERATOR 07/11/24 Furosemide (Lasix) 40 Mg Tab, 40 MG PO BID for 30 Days, #60 TAB Prov:MANJULA LAN MONORAIL CRANE OPERATOR 07/11/24 Sacubitril-Valsartan (Entresto 24-26 mg) 1 Tab Tab, 1 TAB PO BID, #180 TAB Prov:EUN LI MD 09/16/23 Reported Medications Levothyroxine Sodium (Levothyroxine Sodium) 137 Mcg Tab, 1 TAB PO DAILY for 70 Days, #70 07/25/24 Albuterol Sulfate (Albuterol Sulfate Hfa) 108 Mcg/Act Aer 07/09/24 Clonazepam (Clonazepam) 0.5 Mg Tab, 1 TAB PO BID for 30 Days, #60 07/04/24 Tamsulosin Hcl (Tamsulosin Hcl) 0.4 Mg Cap, 0.8 MG PO DAILY AFTER MEAL, MG 09/14/23 Current Medications Current Medications Medications (Trade) Dose Ordered Sig/Manuel Route PRN Reason Start Time Stop Time Status Last Admin Acetaminophen/ Hydrocodone Bitart (Barnard 5/325MG Tab) 1 tab Q4HP PRN PO MODERATE PAIN (4-6 PAIN SCALE) 08/31/24 20:45 08/31/24 22:00 DC Ondansetron HCl (Zofran) 4 mg Q4HP PRN IV NAUSEA / VOMITING 08/31/24 20:45 08/31/24 22:00 DC Docusate Sodium (Colace Capsule) 100 mg BIDPRN PRN PO FOR CONSTIPATION 08/31/24 20:45 08/31/24 22:00 DC Enoxaparin Sodium (Lovenox) 40 mg DAILY SC 09/01/24 10:00 08/31/24 22:01 DC Acetaminophen (Tylenol Tablet) 650 mg Q6HP PRN PO PAIN SCALE 1-3 OR TEMP>100.4 08/31/24 20:45 08/31/24 22:01 DC Pantoprazole Sodium (Protonix) 40 mg DAILY@BREAKFAST IV 09/01/24 08:00 08/31/24 22:01 DC Furosemide (Lasix Injection) 40 mg BIDD IV 08/31/24 20:56 08/31/24 22:01 DC Nitroglycerin (Ntrostat Sublingual) 0.4 mg Q5MINP PRN SL FOR CHEST PAIN 08/31/24 20:45 08/31/24 22:01 DC Aspirin (Ecotrin Enteric Coated Tablet) 81 mg DAILY PO 09/01/24 10:00 08/31/24 22:01 DC Clonazepam (KlonoPIN TABLET) 0.5 mg BID PO 08/31/24 22:00 08/31/24 22:01 DC Metoprolol Tartrate (Lopressor Tablet) 12.5 mg BID PO 08/31/24 22:00 08/31/24 22:01 DC Tamsulosin HCl (Flomax) 0.8 mg HS PO 08/31/24 22:00 08/31/24 22:01 DC Levothyroxine Sodium (Synthroid Tablet) 25 mcg QAM PO 09/01/24 07:00 08/31/24 22:01 DC Review of Systems Constitutional: denies chills, denies fever, denies malaise Eyes: denies eye pain, denies vision change ENT: denies ear pain, denies headache, denies nasal congestion, denies painful swallowing, denies voice change Cardiovascular: denies chest pain, denies edema, denies orthopnea, denies palpitations, denies paroxysmal nocturnal dyspnea Respiratory: denies cough, denies shortness of breath Gastrointestinal: denies constipation, denies diarrhea, denies nausea, denies vomiting Genitourinary: denies dysuria, denies frequent urination, denies urethral discharge Musculoskeletal: denies back pain, denies joint pain, denies muscle pain Skin: denies bruising, denies itching, denies rash Neurological: denies focal weakness, denies headache, denies sensory changes Psychiatric: denies anxiety, denies depression Endocrine: denies polydipsia, denies polyuria Hematologic/Lymphatic: denies easy bleeding, denies easy bruising, denies enlarged lymph nodes Allergic/Immunologic: denies allergy, denies hives Vital Signs Vital Signs Date Time Temp Pulse Resp B/P (MAP) Pulse Ox O2 Delivery O2 Flow Rate FiO2 08/31/24 14:29 97.5 80 18 92/77 (82) 95 97.5 08/31/24 14:29 Room Air Physical Exam General Appearance: alert, no distress HEENT: EOMI, PERRLA, normal external inspect of ears, no icterus, no nasal drainage Neck: no carotid bruit, no jugular venous distention (JVD), no lymphadenopathy Chest: normal thorax Respiratory: clear to auscultation, normal air movement Cardiovascular: regular rate and rhythm, no diastolic murmur, no jugular venous distention (JVD), no rub, no systolic murmur Abdominal: soft, no hepatomegaly, no mass, no splenomegaly, no tenderness Genitourinary: grossly normal external Musculoskeletal: no joint tenderness, no swelling Extremities: normal pulses, no calf tenderness, no clubbing, no cyanosis, no edema Skin: no bruising, no jaundice, no rash Neurological: alert, No focal deficit Results Labs Test 08/31/24 15:16 08/31/24 13:17 Range/Units Troponin I High Sensitivity 17 </=54 ng/L White Blood Count 6.6 4.4-10.8 10^3/uL Red Blood Count 5.86 4.5-5.90 10^6/uL Hemoglobin 17.4 13.5-17.5 g/dL Hematocrit 53.2 H 41.0-53.0 % Mean Corpuscular Volume 90.8 80.0-100.0 fL Mean Corpuscular Hemoglobin 29.8 28.0-32.0 pg Mean Corpuscular Hemoglobin Concent 32.8 32.0-36.0 g/dL Red Cell Distribution Width 14.6 H 11.8-14.3 % Platelet Count 230 140-450 10^3/uL Mean Platelet Volume 8.7 6.9-10.8 fL Neutrophils (%) (Auto) 60.0 37.0-80.0 % Lymphocytes (%) (Auto) 16.2 10.0-50.0 % Monocytes (%) (Auto) 7.8 0.0-12.0 % Eosinophils (%) (Auto) 14.4 H 0.0-7.0 % Basophils (%) (Auto) 1.6 0.0-2.0 % Neutrophils # (Auto) 4.0 1.6-8.6 10 ^3/uL Lymphocytes # (Auto) 1.1 0.4-5.4 10 ^3/uL Monocytes # (Auto) 0.5 0-1.3 10 ^3/uL Eosinophils # (Auto) 1.0 H 0-0.8 10 ^3/uL Basophils # (Auto) 0.1 0-0.2 10 ^3/uL Nucleated Red Blood Cells 0.1 % Sodium Level 139 136-145 mmol/L Potassium Level 3.8 3.5-5.1 mmol/L Chloride Level 103 98-107 mmol/L Carbon Dioxide Level 30 20-31 mmol/L Anion Gap 6 5-15 Blood Urea Nitrogen 21 9-23 mg/dL Creatinine 1.46 H 0.700-1.30 mg/dL Glomerular Filtration Rate Calc 53 >90 mL/min BUN/Creatinine Ratio 14.4 10.0-20.0 Serum Glucose 98 74-106 mg/dL Calcium Level 9.5 8.7-10.4 mg/dL Total Bilirubin 0.2 0.2-1.0 mg/dL Aspartate Amino Transferase (AST) 19 13-40 U/L Alanine Aminotransferase (ALT) 14 7-40 U/L Alkaline Phosphatase 92 46-116 U/L Total Protein 7.3 5.7-8.2 g/dL Albumin 4.6 3.2-4.8 g/dL Plan 1. Unstable angina Monitor EKG, trend troponin 2. Anxiety Monitor, PRN anxiolytics 3. CAD Monitor, cardiology consult 4. COPD Monitor, Med-Neb tx 5. GERD Monitor, PPI 6. Smoker Smoking cessation 7. Hypothyroid Monitor, restart home meds 8. Acute on chronic combined systolic and diastolic heart failure Monitor, cardiology consult, IV diuretics Plan discussed with: Patient, Other MANJULA LAN NP Aug 31, 2024 20:39
[2024-08-31] MEDS ORDERED: DOCUSATE SOD 100 MG CAP PO PRN (20:45)
[2024-08-31] MEDS ORDERED: HYDROcodone-ACET 5/325MG TAB PO PRN (20:45)
[2024-08-31] MEDS ORDERED: NITROGLYCERIN 0.4 MG SL TAB SL PRN (20:45)
[2024-08-31] MEDS ORDERED: ACETAMINOPHEN 325 MG TAB PO PRN (20:45)
[2024-08-31] MEDS ORDERED: ONDANSETRON HCL 4 MG/2 ML VIAL IV PRN (20:45)
[2024-08-31] MEDS ORDERED: FUROSEMIDE 40 MG/4 ML VIAL IV SCH (20:56)
[2024-08-31] MEDS ORDERED: TAMSULOSIN HYDROCHLORIDE 0.4 MG CAP PO SCH (22:00)
[2024-08-31] MEDS ORDERED: clonazePAM 0.5 MG TAB PO SCH (22:00)
[2024-08-31] MEDS ORDERED: METOPROLOL TARTRATE 25 MG TAB PO SCH (22:00)
[2024-09-01] MEDS ORDERED: LEVOTHYROXINE SODIUM 25 MCG TAB PO SCH (07:00)
--- NOTE | 2024-09-01 07:25 | DVHDS2 ---
Discharge Summary Date of Admission Aug 31, 2024 at 20:35 Date of Discharge: Aug 31, 2024 Labs/Diagnostic Data: Laboratory Results Test 08/31/24 15:16 08/31/24 13:17 Troponin I High Sensitivity 17 ng/L (</=54) White Blood Count 6.6 10^3/uL (4.4-10.8) Red Blood Count 5.86 10^6/uL (4.5-5.90) Hemoglobin 17.4 g/dL (13.5-17.5) Hematocrit 53.2 % (41.0-53.0) Mean Corpuscular Volume 90.8 fL (80.0-100.0) Mean Corpuscular Hemoglobin 29.8 pg (28.0-32.0) Mean Corpuscular Hemoglobin Concent 32.8 g/dL (32.0-36.0) Red Cell Distribution Width 14.6 % (11.8-14.3) Platelet Count 230 10^3/uL (140-450) Mean Platelet Volume 8.7 fL (6.9-10.8) Neutrophils (%) (Auto) 60.0 % (37.0-80.0) Lymphocytes (%) (Auto) 16.2 % (10.0-50.0) Monocytes (%) (Auto) 7.8 % (0.0-12.0) Eosinophils (%) (Auto) 14.4 % (0.0-7.0) Basophils (%) (Auto) 1.6 % (0.0-2.0) Neutrophils # (Auto) 4.0 10 ^3/uL (1.6-8.6) Lymphocytes # (Auto) 1.1 10 ^3/uL (0.4-5.4) Monocytes # (Auto) 0.5 10 ^3/uL (0-1.3) Eosinophils # (Auto) 1.0 10 ^3/uL (0-0.8) Basophils # (Auto) 0.1 10 ^3/uL (0-0.2) Nucleated Red Blood Cells 0.1 % Sodium Level 139 mmol/L (136-145) Potassium Level 3.8 mmol/L (3.5-5.1) Chloride Level 103 mmol/L (98-107) Carbon Dioxide Level 30 mmol/L (20-31) Anion Gap 6 (5-15) Blood Urea Nitrogen 21 mg/dL (9-23) Creatinine 1.46 mg/dL (0.700-1.30) Glomerular Filtration Rate Calc 53 mL/min (>90) BUN/Creatinine Ratio 14.4 (10.0-20.0) Serum Glucose 98 mg/dL (74-106) Calcium Level 9.5 mg/dL (8.7-10.4) Total Bilirubin 0.2 mg/dL (0.2-1.0) Aspartate Amino Transferase (AST) 19 U/L (13-40) Alanine Aminotransferase (ALT) 14 U/L (7-40) Alkaline Phosphatase 92 U/L (46-116) Total Protein 7.3 g/dL (5.7-8.2) Albumin 4.6 g/dL (3.2-4.8) Other Laboratory Tests 08/31/24 13:17 Brief Hx & Hospital Course: 63 y/o male patient with h/o HTN, CHF, NE, CAD, DM, HLD, COPD presents with c/o chest pain. Patient states pain is intermittent and does not radiate. While in the emergency department the patient was evaluated by the provider, As per provider: Labs, vital signs, and imagining monitored. Patient was admitted for unstable angina. Cardiology was consulted. EKG was being monitored. Patient also has acute on chronic combined systolic and diastolic heart failure and IV diuretics were ordered. Cardiology was consulted. Patient decided to leave AMA. The patient decided they wanted to leave AMA. The patient was informed about the risk of leaving. And was informed about the risk that are involved if they left without any treatment which may include . The patient was okay with it and decided to leave without any intervention. The patient was told to return for any worsening symptoms. Condition at Discharge: Unstable Final Diagnosis/Problems List Unstable angina Anxiety CAD COPD GERD Smoker Hypothyroid Acute on chronic combined systolic and diastolic heart failure Discharge Disposition: AMA Discharge Statement: "Patient was advised to return to the ER or call 911 if any headaches, dizziness, shortness of breath, chest pain, abdominal pain, bleeding, fevers, or worsening of medical condition. Patient was counseled about treatment plan, medications, possible side effects, patientverbalized understanding. All questions were answered to the best of my ability. This discharge took greater then 30 minutes in planning, reviewing documentation, counseling the patient, and discussing with other team members." ASSESSMENT ASSESSMENT Assessment MANJULA LAN NP Sep 01, 2024 07:25
[2024-09-01] MEDS ORDERED: PANTOPRAZOLE 40 MG/10 ML VIAL INJ IV SCH (08:00)
[2024-09-01] MEDS ORDERED: ENOXAPARIN SOD 40 MG/0.4 ML SYRINGE SC SCH (10:00)
[2024-09-01] MEDS ORDERED: ASPirin-EC 81 mg tab PO SCH (10:00)
== END 2024-08-31 21:57 | disposition left against medical advice (07) | DRG 198 ==
LOC: ER 10:58 → OVERFLOW 20:35
PROVIDERS: ADMIT Nurse Practitioner; ATTEND Nurse Practitioner
DX: I25.110 Atherosclerotic heart disease of native coronary artery with unstable angina pectoris (principal); I50.43 Acute on chronic combined systolic (congestive) and diastolic (congestive) heart failure; I11.0 Hypertensive heart disease with heart failure; F41.9 Anxiety disorder, unspecified; K21.9 Gastro-esophageal reflux disease without esophagitis; J44.9 Chronic obstructive pulmonary disease, unspecified; F17.210 Nicotine dependence, cigarettes, uncomplicated; E03.9 Hypothyroidism, unspecified; E11.9 Type 2 diabetes mellitus without complications; E78.5 Hyperlipidemia, unspecified; Z53.29 Procedure and treatment not carried out because of patient's decision for other reasons; Z80.3 Family history of malignant neoplasm of breast; Z82.49 Family history of ischemic heart disease and other diseases of the circulatory system; Z83.3 Family history of diabetes mellitus; Z79.82 Long term (current) use of aspirin; Z79.51 Long term (current) use of inhaled steroids; Z79.899 Other long term (current) drug therapy; Z95.810 Presence of automatic (implantable) cardiac defibrillator
CPT/HCPCS: 36415; 71045; 80053; 84484; 85025; 99291; G0378

== ENCOUNTER 2024-09-02 11:47 | Inpatient (IN) | payer MEDICAID ==
[~2024-09-02] VITALS: Ht 172.7 cm; Wt 81.5 kg
--- NOTE | 2024-09-02 11:59 | ED.PDOC ---
HPI Comments HPI: Poor Historian. 63-year-old male brought in by ambulance from home for complaint of left-sided chest pain nonradiating for the last three days with the associated shortness of breath. Per EMS patient was stable but then had an episode of hypoxia. They placed him on a breathing treatment and a oxygen supplement. Patient was here few days ago and left against medical advice. Patient was admitted for unstable angina from previous aforementioned visit and left AMA on 08/31/24, with the following: Final Diagnosis/Problems List Unstable angina Anxiety CAD COPD GERD Smoker Hypothyroid Acute on chronic combined systolic and diastolic heart failure Vitals on scene: pulse rate of 85, respiratory rate of 28, blood pressure of 115/79, and a Spo2 of 98%RA Vitals upon arrival to ED: temperature of 97.8F, pulse rate of 87, respiratory rate of 30, blood pressure of 116/78, and a Spo2 of 98%RA Past Medical History: CHF on Lasix, SC, HTN, CAD, DM, HLD, COPD, GERD, hypothyroidism, kidney stones, angina Past Surgical History: pacemaker REVIEW OF SYSTEMS: CONSTITUTIONAL: Denies acute: fever, diaphoresis, chills, HEAD: Denies acute: headache, photophobia Eyes: Denies acute: Double vision, vision loss, eye pain, eye discharge. EARS: Denies acute: tinnitus, hearing loss, ear discharge, ear pain, THROAT: Denies acute: sore throat, swelling, difficulty swallowing , pain with swallowing, change in voice. NECK: Denies acute: neck pain, neck swelling, stiff neck. HEART: Denies acute : , palpitations, LUNGS: Denies acute: wheezing, cough, hemoptysis ABDOMEN: Denies acute: abdominal pain, Nausea, Vomiting, diarrhea, melena , hematemesis, hematochezia SKIN: Denies acute: rash, redness, lesions, itchiness. EXTREMITIES: Denies acute: calf pain, numbness, tingling, weakness, denies pain in extremity. Denies acute: Low back pain. Neuro: Denies acute: focal neurological deficit, motor or sensory focal neurological deficit, tremors, seizure like activity, confusion, dizziness, change in mental status, loss of bowel or bladder function, cauda equina like symptoms. : Denies acute: dysuria, hematuria, flank pain, increase in urinary frequency. PSYCH: Denies acute: hallucination, suicidal ideation, homicidal ideation. PHYSICAL EXAM: General: ----rott-xs-[id number]----acute distress, awake and alert. Head: normocephalic, atraumatic. Neck: supple, trachea is midline, no swelling. Throat: Normal phonation. Eyes:, no erythema, no purulent discharge, no proptosis, no icterus. Heart: regular rate, regular rhythm, no significant murmur appreciated. Lungs: no apparent respiratory distress, Able to speak in full sentences. No wheezing, no rhonchi, no crackles. No stridors Clear to auscultation bilaterally. Abdomen: non tender to palpation, non distended, soft, no guarding, no rebound, + bowel sounds. Neuro: Awake, Alert, oriented to name, self, situation, follows commands GCS=15. Speech is normal. Skin: no petechia, no purpura, no cyanosis, non-pale, not jaundice. Lower extremities: --no - Pitting edema no deformity, no focal swelling, no calf TTP. Makes eye contact. moves all four extremities. Face: no apparent facial droop. No CVA tenderness to percussion bilaterally. Ambulating in the ED independently. Ears: Normal appearing TM b/l, Stroke: finger to nose cerebellar testing is intact. No pronator drift. Symmetrical sterilization specialist muscle strength b/l PERRLA, EOM-I CN 2-12 are grossly intact, Pedal pulses are palpable. No nystagmus. No nuchal rigidity, Kernig's sign, Brudzinski's sign, no meningeal signs. ED COURSE: Chief Complaint: Chest Pain Time Seen by MD: 11:51 Primary Care Provider: ROHAN Allergies: Coded Allergies: Empagliflozin (Verified Allergy, Severe, 07/24/24) Morphine (Unverified Allergy, Unknown, 04/18/22) SEVERE BRADYCARDIA Home Meds Active Scripts Metoprolol Tartrate (Metoprolol Tartrate) 25 Mg Tab, 0.5 TAB PO BID for 30 Days, #30 TAB 1 Refill Prov:MANJULA LAN SPRAY PAINTER 07/26/24 Aspirin (Aspirin Low Dose) 81 Mg Tab, 81 MG PO DAILY for 30 Days, #30 TAB Prov:MANJULA LAN SPRAY PAINTER 07/12/24 Potassium Chloride (Potassium Chloride ER) 10 Meq Tab, 10 MEQ PO BID for 30 Days, #60 TAB Prov:MANJULA LAN SPRAY PAINTER 07/11/24 Furosemide (Lasix) 40 Mg Tab, 40 MG PO BID for 30 Days, #60 TAB Prov:MANJULA LAN SPRAY PAINTER 07/11/24 Sacubitril-Valsartan (Entresto 24-26 mg) 1 Tab Tab, 1 TAB PO BID, #180 TAB Prov:EUN LI MD 09/16/23 Reported Medications Levothyroxine Sodium (Levothyroxine Sodium) 137 Mcg Tab, 1 TAB PO DAILY for 70 Days, #70 07/25/24 Albuterol Sulfate (Albuterol Sulfate Hfa) 108 Mcg/Act Aer 07/09/24 Clonazepam (Clonazepam) 0.5 Mg Tab, 1 TAB PO BID for 30 Days, #60 07/04/24 Tamsulosin Hcl (Tamsulosin Hcl) 0.4 Mg Cap, 0.8 MG PO DAILY AFTER MEAL, MG 09/14/23 Information Source: Patient, Emergency Med Personnel Past Medical History PAST MEDICAL HISTORY: Anxiety, CAD, CHF, CKF, COPD, Depression, DM, GERD, High Lipids, HTN, SC, Thyroid Surgical History: Pacemaker Family History Family History: Reviewed,noncontributory to illness, Unknown Social History Smoker: Cigarettes, Less Than 1 Pack/Day Alcohol: Denies ETOH Use Drugs: Denies Drug Use Lives In: Home Was a procedure done? Was a procedure done?: No CP Differential Dx Differential Diagnosis: N/A Differential Diagnosis: Other (Ddx include but not limitied to gastritis, musculoskeletal pain, radiculopathy, atypical chest pain, dissection, aneurysm, ACS, unstable angina, hiatal hernia, GERD, anxiety, costochondritis, PE, pneumothroax, neoplasm, cardiac ischemia, drug abuse, anemia.) X-Ray, Labs, Meds, VS Vital Signs Date Time Temp Pulse Resp B/P (MAP) Pulse Ox O2 Delivery O2 Flow Rate FiO2 09/02/24 14:22 118/73 09/02/24 13:01 94 22 127/81 (96) 93 09/02/24 12:54 Nasal Cannula* 2 28 09/02/24 12:49 93 09/02/24 12:31 89 09/02/24 12:09 22 95 Room Air* 0 21 09/02/24 11:53 97.8 87 30 116/78 (91) 98 97.8 09/02/24 11:50 83 Lab Test 09/02/24 14:03 09/02/24 13:29 09/02/24 12:58 09/02/24 12:07 Range/Units Lactic Acid Level 2.2 *H 4.0 *H 0.4-2.0 mmol/L Troponin I High Sensitivity 22 25 </=54 ng/L Urine Color Light-yellow Yellow Urine Clarity Clear Clear Urine pH 5.0 5.0-9.0 Urine Specific [place] 1.012 1.001-1.035 Urine Protein Negative Negative Urine Ketones Negative Negative Urine Blood Negative Negative /uL Urine Nitrite Negative Negative Urine Bilirubin Negative Negative Urine Urobilinogen Normal Negative mg/dL Urine Leukocyte Esterase Negative Negative /uL Urine RBC 1 0 - 3 /hpf Urine Microscopic WBC 1 0-3 /HPF Urine Squamous Epithelial Cells None seen <5 /hpf Urine Bacteria None seen None Seen /hpf Urine Glucose 4+ H Normal mg/dL Urine Opiates Screen Neg NEGATIVE Urine Fentanyl Screen Neg NEGATIVE Urine Barbiturates Screen Neg NEGATIVE Urine Phencyclidine Screen Neg NEGATIVE Urine Amphetamines Screen Pos NEGATIVE Urine Benzodiazepines Screen Neg NEGATIVE Urine Cocaine Screen Neg NEGATIVE Urine Cannabinoids Screen Neg NEGATIVE White Blood Count 7.0 4.4-10.8 10^3/uL Red Blood Count 5.68 4.5-5.90 10^6/uL Hemoglobin 16.9 13.5-17.5 g/dL Hematocrit 51.5 41.0-53.0 % Mean Corpuscular Volume 90.7 80.0-100.0 fL Mean Corpuscular Hemoglobin 29.8 28.0-32.0 pg Mean Corpuscular Hemoglobin Concent 32.9 32.0-36.0 g/dL Red Cell Distribution Width 14.6 H 11.8-14.3 % Platelet Count 217 140-450 10^3/uL Mean Platelet Volume 8.3 6.9-10.8 fL Neutrophils (%) (Auto) 66.3 37.0-80.0 % Lymphocytes (%) (Auto) 17.3 10.0-50.0 % Monocytes (%) (Auto) 7.1 0.0-12.0 % Eosinophils (%) (Auto) 9.0 H 0.0-7.0 % Basophils (%) (Auto) 0.3 0.0-2.0 % Neutrophils # (Auto) 4.6 1.6-8.6 10 ^3/uL Lymphocytes # (Auto) 1.2 0.4-5.4 10 ^3/uL Monocytes # (Auto) 0.5 0-1.3 10 ^3/uL Eosinophils # (Auto) 0.6 0-0.8 10 ^3/uL Basophils # (Auto) 0 0-0.2 10 ^3/uL Nucleated Red Blood Cells 0.1 % Sodium Level 140 136-145 mmol/L Potassium Level 4.3 3.5-5.1 mmol/L Chloride Level 104 98-107 mmol/L Carbon Dioxide Level 25 20-31 mmol/L Anion Gap 11 5-15 Blood Urea Nitrogen 20 9-23 mg/dL Creatinine 1.31 H 0.700-1.30 mg/dL Glomerular Filtration Rate Calc 61 >90 mL/min BUN/Creatinine Ratio 15.3 10.0-20.0 Serum Glucose 157 H 74-106 mg/dL Calcium Level 9.6 8.7-10.4 mg/dL Total Bilirubin 0.2 0.2-1.0 mg/dL Aspartate Amino Transferase (AST) 21 13-40 U/L Alanine Aminotransferase (ALT) < 9 7-40 U/L Alkaline Phosphatase 90 46-116 U/L B-Type Natriuretic Peptide 480.05 0-100 pg/mL Total Protein 6.8 5.7-8.2 g/dL Albumin 4.2 3.2-4.8 g/dL [place] [id number] Ph: [phone] DIAGNOSTIC IMAGING Diagnostic Imaging Report : [id number] Signed PATIENT: XIAO HERNANDEZ ACCT: [id number] UNIT: [id number] : 1960 LOC: ER ROOM / BED: / AGE / SEX: 63 / M ADM STATUS: REG ER SERVICE 1154 ORDERING PHYSICIAN: TERRENCE ALVA DO PROCEDURE(s): CXRP - CHEST PORTABLE REASON: cp/sob ORDER NUMBER(s): [id number], ACCESSION NUMBER(s): [id number] CHEST RADIOGRAPH Indication: cp/sob Technique: Single frontal view of the chest was obtained COMPARISON: XY CHEST PORTABLE on DOS: 08/31/24, XY CHEST PORTABLE on DOS: 07/30/24, XY CHEST PORTABLE on DOS: 07/24/24, XY CHEST PORTABLE on DOS: 07/09/24, XY CHEST PORTABLE on DOS: 07/03/24 FINDINGS: Lines and Tubes: Left chest AICD Lungs: Clear Pleura: No effusion. No pneumothorax. Cardiomediastinal contours: Unremarkable Bones: Unremarkable IMPRESSION: No acute disease. ATED BY: HARRIS RODAS MD DICTATED DATE/TIME: 09/02/24 1257 SIGNED BY: HARRIS RODAS MD SIGNED DATE/TIME: 09/02/24 1257 CC: Time of 1ST Reevaluation: 11:51 Reevaluation 1ST: Unchanged Patient Education/Counseling: Diagnosis, Treatment Family Education/Counseling: No Family Present Comments Patient presented with the above HPI.-cardiac and respiratory distress---workup was initiated. patient was found with the above mentioned diagnosis. the following medications were ordered: please refer to order lists of meds and tests obtained by myself Dr. Alva. Patient ED course and VS have been stabilized. Patient has been reassessed in the ED and remained in a stable condition. Pertinent incidental findings were discussed with the patient and/or family. Patient/family voices understanding and is agreeable with plan. Patient has been observed in the ED adequate length of time to insure improvement/stability. Escalation of care considered: Consideration of escalation to observation or admission Patient was ADMITTED to the medicine team for further evaluation and treatment of their presentation. All the reports of any imaging studies that were ordered by myself were reviewed by myself. Departure 1 Departure Time of Disposition: 13:22 Impression: Primary Impression: Chest pain Additional Impressions: Acute respiratory distress COPD with acute exacerbation Disposition: ADMITTED INPATIENT Admit to: [facility] Condition: Guarded Discharged With: Self Critical Care Note Critical Care Time?: Yes (1 hr-critical care time only) Heart Score Heart Score: Heart Score Response (Comments) Value History Highly Suspicious [address]-Deviation 2 Age 45-64 1 Risk Factors >3 or Hx ASHD 2 Troponin Normal limit 0 Total 7 I personally scribed for TERRENCE ALVA DO ([email or web address]) on 09/02/24 at 12:19. Electronically submitted by Solomon Garcia ([email or web address]). I personally scribed for TERRENCE ALVA DO ([email or web address]) on 09/02/24 at 12:27. Electronically submitted by Solomon Garcia ([email or web address]). TERRENCE ALVA DO Sep 02, 2024 11:59
[2024-09-02] MEDS: ALBUTEROL SULF 2.5 MG/0.5ML(0.5%) NEB SOLN NEB ONE (12:08)
[2024-09-02] MEDS: IPRATROPIUM BROM 0.5 MG/2.5ML INH SOL NEB ONE (12:08)
[2024-09-02 12:23] LABS: Basophils # (auto) 0 10 ^3/uL (0-0.2); Basophils % (auto) 0.3 % (0.0-2.0); Eosinophils # (auto) 0.6 10 ^3/uL (0-0.8); Hematocrit 51.5 % (41.0-53.0); Hemoglobin 16.9 g/dL (13.5-17.5); Lymphocytes # (auto) 1.2 10 ^3/uL (0.4-5.4); Lymphocytes % (auto) 17.3 % (10.0-50.0); Mean Corpuscular Hemoglobin 29.8 pg (28.0-32.0); Mean Corpuscular Hgb Conc. 32.9 g/dL (32.0-36.0); Mean Corpuscular Volume 90.7 fL (80.0-100.0); Monocytes # (auto) 0.5 10 ^3/uL (0-1.3); Monocytes % (auto) 7.1 % (0.0-12.0); Neutrophils # (auto) 4.6 10 ^3/uL (1.6-8.6); Neutrophils % (auto) 66.3 % (37.0-80.0); Nucleated Red Blood Cells % 0.1 %; Platelet Count (auto) 217 10^3/uL (140-450); Red Blood Cells 5.68 10^6/uL (4.5-5.90); Red Cell Distribution Width 14.6 % (11.8-14.3)
[2024-09-02] MEDS: methylPREDNISolone SOD SUCC 125 MG/2 ML VL IV ONE (12:26)
[2024-09-02 12:41] LABS: Albumin 4.2 g/dL (3.2-4.8); Alkaline Phosphatase 90 U/L (46-116); Anion Gap 11 (5-15); Aspartate Aminotransferase 21 U/L (13-40); BUN/Creatinine Ratio 15.3 (10.0-20.0); Blood Urea Nitrogen 20 mg/dL (9-23); Calcium 9.6 mg/dL (8.7-10.4); Carbon Dioxide 25 mmol/L (20-31); Chloride 104 mmol/L (98-107); Potassium 4.3 mmol/L (3.5-5.1); Sodium 140 mmol/L (136-145); Total Protein 6.8 g/dL (5.7-8.2)
[2024-09-02 12:46] LABS: Alanine Aminotransferase < 9 U/L (7-40); Bilirubin, Total 0.2 mg/dL (0.2-1.0); Glucose 157 mg/dL (74-106)
[2024-09-02 12:59] LABS: Urine Bacteria None Seen /hpf (None Seen)
--- NOTE | 2024-09-02 12:59 | DVH ---
CHEST RADIOGRAPH Indication: cp/sob Technique: Single frontal view of the chest was obtained COMPARISON: XY CHEST PORTABLE on DOS: 08/31/24, XY CHEST PORTABLE on DOS: 07/30/24, XY CHEST PORTABLE o n DOS: 07/24/24, XY CHEST PORTABLE on DOS: 07/09/24, XY CHEST PORTABLE on DOS: 07/03/24 FINDINGS: Lines and Tubes: Left chest AICD Lungs: Clear Pleura: No effusion. No pneumothorax. Cardiomediastinal contours: Unremarkable Bones: Unremarkable IMPRESSION: No acute disease.
[2024-09-02 13:31] LABS: Urine Blood Negative /uL (Negative); Urine Clarity Clear (Clear); Urine Color Light-Yellow (Yellow); Urine Protein, UAD Negative (Negative); Urine Specific Gravity 1.012 (1.001-1.035); Urine Squamous Epithelial Cell None Seen /hpf (<5); Urine Urobilinogen Normal (Negative); Urine WBC 1 /HPF (0-3)
[2024-09-02] MEDS: cefTRIAXone 1GM/50ML D5W 50 ML IV ONE (14:21)
[2024-09-02] MEDS: FUROSEMIDE 40 MG/4 ML VIAL IV ONE ×2 (14:22→22:06)
[2024-09-02] MEDS ORDERED: MORPHINE SULFATE INJ 2 MG/ml SYRG IV PRN (14:45)
[2024-09-02] MEDS ORDERED: NITROGLYCERIN 0.4 MG SL TAB SL PRN (14:45)
[2024-09-02 15:03] VITALS: BP 127/81; PULSE 91; RESP 22; O2SAT 94
[2024-09-02 15:21] LABS: Amphetamine Screen, Urine Pos (NEGATIVE); Barbiturate Scree,Urine Neg (NEGATIVE); Benzodiazephine Screen, Urine Neg (NEGATIVE); Cannabinoid Screen, Urine Neg (NEGATIVE); Cocaine Screen, Urine Neg (NEGATIVE); Opiate Scree,Urine Neg (NEGATIVE); Phencyclidine Screen, Urine Neg (NEGATIVE)
[2024-09-02] MEDS: DOXYCYCLINE 100MG/100ML 100 ML IV SCH (15:28)
[2024-09-02] MEDS ORDERED: TAMSULOSIN HYDROCHLORIDE 0.4 MG CAP PO SCH (18:00)
[2024-09-02] MEDS ORDERED: FUROSEMIDE 40 MG/4 ML VIAL IV SCH (18:00)
--- NOTE | 2024-09-02 18:16 | ECG ---
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
--- NOTE | 2024-09-02 18:16 | ECG ---
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
--- NOTE | 2024-09-02 18:17 | ECG ---
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
[2024-09-02 18:33] VITALS: BP 129/93; PULSE 89; RESP 18; TEMP 98.1; O2SAT 99
--- NOTE | 2024-09-02 18:53 | DVHHP2 ---
History of Present Illness History of Present Illness 63-year-old male with a history of CHF, coronary artery disease, hypertension, methamphetamine abuse presents to the emergency room for chest pain for the last three days. Patient has multiple admissions for the same issue with history of leaving AMA. Patient also endorses some shortness of breath. Review of Systems Respiratory: No: Cough, Dry, Shortness of breath, SOB with excertion, Wheezing, Hemoptysis, Pleuritic Pain, Sputum, Wheezing, Other Cardiovascular: No: Chest Pain, Palpitations, Orthopnea, Paroxysmal Noc. Dyspnea, Edema, Lt Headedness, Other Gastrointestinal: No: Nausea, Vomiting, Abdominal Pain, Diarrhea, Constipation, Melena, Hematochezia, Other Allergies: Coded Allergies: Empagliflozin (Verified Allergy, Severe, 07/24/24) Morphine (Unverified Allergy, Unknown, 04/18/22) SEVERE BRADYCARDIA Medications Current Medications Medications Dose Ordered Sig/Manuel Route Start Time Stop Time Status Last Admin Dose Admin Nitroglycerin 0.4 mg Q5MINP PRN SL 09/02/24 14:45 Morphine Sulfate 2 mg Q30M PRN IV 09/02/24 14:45 Hold Doxycycline Hyclate 100 ml @ 50 mls/hr Q12HR IV 09/02/24 14:45 09/02/24 15:28 50 MLS/HR Albuterol 2.5 mg Q4HPRN PRN NEB 09/02/24 14:45 Aspirin 81 mg DAILY PO 09/03/24 10:00 Metoprolol Tartrate 12.5 mg BID PO 09/02/24 22:00 Sacubitril/ Valsartan 1 tab BID PO 09/02/24 22:00 Tamsulosin HCl 0.8 mg QPM PO 09/02/24 18:00 Levothyroxine Sodium 112 mcg QAM PO 09/03/24 07:00 Furosemide 40 mg BIDD IV 09/02/24 18:00 Levothyroxine Sodium 25 mcg QAM PO 09/03/24 07:00 Exam Vital Signs Vital Signs Date Time Temp Pulse Resp B/P (MAP) Pulse Ox O2 Delivery O2 Flow Rate FiO2 09/02/24 17:00 98.2 93 25 132/85 (101) 93 98.2 09/02/24 15:03 2.0 28 09/02/24 12:54 Nasal Cannula* General Appearance: Alert, Oriented X3, Cooperative, No acute distress Cardiovascular: Regular rate, Normal S1, Normal S2, No murmurs Abdominal: Normal bowel sounds, Soft, No tenderness, No hepatospenomegaly Extremities: No clubbing Labs/Xrays Labs Test 09/02/24 15:12 09/02/24 14:03 09/02/24 12:58 09/02/24 12:07 Range/Units Troponin I High Sensitivity 20 </=54 ng/L Lactic Acid Level 2.2 *H 0.4-2.0 mmol/L Urine Color Light-yellow Yellow Urine Clarity Clear Clear Urine pH 5.0 5.0-9.0 Urine Specific [place] 1.012 1.001-1.035 Urine Protein Negative Negative Urine Ketones Negative Negative Urine Blood Negative Negative /uL Urine Nitrite Negative Negative Urine Bilirubin Negative Negative Urine Urobilinogen Normal Negative mg/dL Urine Leukocyte Esterase Negative Negative /uL Urine RBC 1 0 - 3 /hpf Urine Microscopic WBC 1 0-3 /HPF Urine Squamous Epithelial Cells None seen <5 /hpf Urine Bacteria None seen None Seen /hpf Urine Glucose 4+ H Normal mg/dL Urine Opiates Screen Neg NEGATIVE Urine Fentanyl Screen Neg NEGATIVE Urine Barbiturates Screen Neg NEGATIVE Urine Phencyclidine Screen Neg NEGATIVE Urine Amphetamines Screen Pos NEGATIVE Urine Benzodiazepines Screen Neg NEGATIVE Urine Cocaine Screen Neg NEGATIVE Urine Cannabinoids Screen Neg NEGATIVE White Blood Count 7.0 4.4-10.8 10^3/uL Red Blood Count 5.68 4.5-5.90 10^6/uL Hemoglobin 16.9 13.5-17.5 g/dL Hematocrit 51.5 41.0-53.0 % Mean Corpuscular Volume 90.7 80.0-100.0 fL Mean Corpuscular Hemoglobin 29.8 28.0-32.0 pg Mean Corpuscular Hemoglobin Concent 32.9 32.0-36.0 g/dL Red Cell Distribution Width 14.6 H 11.8-14.3 % Platelet Count 217 140-450 10^3/uL Mean Platelet Volume 8.3 6.9-10.8 fL Neutrophils (%) (Auto) 66.3 37.0-80.0 % Lymphocytes (%) (Auto) 17.3 10.0-50.0 % Monocytes (%) (Auto) 7.1 0.0-12.0 % Eosinophils (%) (Auto) 9.0 H 0.0-7.0 % Basophils (%) (Auto) 0.3 0.0-2.0 % Neutrophils # (Auto) 4.6 1.6-8.6 10 ^3/uL Lymphocytes # (Auto) 1.2 0.4-5.4 10 ^3/uL Monocytes # (Auto) 0.5 0-1.3 10 ^3/uL Eosinophils # (Auto) 0.6 0-0.8 10 ^3/uL Basophils # (Auto) 0 0-0.2 10 ^3/uL Nucleated Red Blood Cells 0.1 % Sodium Level 140 136-145 mmol/L Potassium Level 4.3 3.5-5.1 mmol/L Chloride Level 104 98-107 mmol/L Carbon Dioxide Level 25 20-31 mmol/L Anion Gap 11 5-15 Blood Urea Nitrogen 20 9-23 mg/dL Creatinine 1.31 H 0.700-1.30 mg/dL Glomerular Filtration Rate Calc 61 >90 mL/min BUN/Creatinine Ratio 15.3 10.0-20.0 Serum Glucose 157 H 74-106 mg/dL Calcium Level 9.6 8.7-10.4 mg/dL Total Bilirubin 0.2 0.2-1.0 mg/dL Aspartate Amino Transferase (AST) 21 13-40 U/L Alanine Aminotransferase (ALT) < 9 7-40 U/L Alkaline Phosphatase 90 46-116 U/L B-Type Natriuretic Peptide 480.05 0-100 pg/mL Total Protein 6.8 5.7-8.2 g/dL Albumin 4.2 3.2-4.8 g/dL Assessment/Plan Assessment/Plan 1. Acute hypoxic respiratory failure likely from COPD exacerbation med neb treatment 2. HLD Monitor, medications 3. GERD Monitor, PPI 4. Hypothyroid Monitor, medications 5. Pacemaker Monitor, cardiology consult 6. Smoker Monitor, smoking cessation 7. Acute on chronic combined systolic and diastolic CHF Monitor, cardiology consult, diuretics 8. Nonischemic cardiomyopathy 9. methamphetamine abuse counseled to stop 10. Lactic acidosis Monitor Plan discussed with: Patient My Orders Orders - CHERRY PARRISH Procedure Category Date Status Time Admit ADMIT 09/02/24 Transmitted 14:36 Nitroglycerin PHA 09/02/24 In Process Sublingual (Ntrostat 14:45 Morphine Sulfate PHA 09/02/24 In Process Injection 14:45 Stat Ekg For Chest TERRI 09/02/24 In Process Pain 14:36 Notify Md Of Changes TERRI 09/02/24 In Process From Base 14:36 Film Cutter For TERRI 09/02/24 In Process 24 Hours 14:36 Emergency Dysrhythmia TERRI 09/02/24 In Process Protocol 14:36 Rhythm Strips Once TERRI 09/02/24 In Process Every Shift 14:36 Oxygen By Nasal RT 09/02/24 Transmitted Cannula 14:36 Doxycycline PHA 09/02/24 In Process 100mg/100ml 14:45 Albuterol Medneb PHA 09/02/24 In Process (Ventolin Medneb) 14:45 Aspirin Enteric PHA 09/03/24 In Process Coated Tablet 10:00 Metoprolol Tartrate PHA 09/02/24 In Process Tablet (Lopressor Ta 22:00 Sacubitril-Valsartan PHA 09/02/24 In Process (Entresto 24-26 Mg 22:00 Levothyroxine Tablet PHA 09/03/24 In Process (Synthroid Tablet) 07:00 Furosemide Injection PHA 09/02/24 In Process (Lasix Injection) 18:00 Cardiac DIET 09/02/24 Transmitted Diet-2gna,Lofat,Lochol Dinner Tamsulosin PHA 09/02/24 In Process Hydrochloride (Flomax) 18:00 Levothyroxine Tablet PHA 09/03/24 In Process (Synthroid Tablet) 07:00 Date of Service: Sep 02, 2024 Billing Provider: JD HOUGH MD Common Visit Codes: [id number] INP/OBS CARE (MOD) CHERRY PARRISH ASSESSMENT NURSE Sep 02, 2024 18:52
[2024-09-02 20:00] VITALS: PULSE 59; PULSE 98; RESP 18; O2SAT 95
[2024-09-02 21:00] VITALS: BP 125/77; PULSE 96; RESP 19; TEMP 98.1; O2SAT 96
[2024-09-02] MEDS: SACUBITRIL-VALSARTAN 24mg/26mg TAB PO SCH (22:00)
[2024-09-02] MEDS: METOPROLOL TARTRATE 25 MG TAB PO SCH (22:01)
[2024-09-02] MEDS: TAMSULOSIN HYDROCHLORIDE 0.4 MG CAP PO ONE (22:05)
[2024-09-03] VITALS (16 sets, daily range): BP systolic 98–118; BP diastolic 57–72; PULSE 80–104; RESP 16–20; TEMP 97.4–98.3; O2SAT 93–100
[2024-09-03] MEDS: ALBUTEROL SULF 2.5 MG/0.5ML(0.5%) NEB SOLN NEB PRN (00:04)
[2024-09-03] MEDS: FUROSEMIDE 40 MG/4 ML VIAL IV SCH (05:44)
[2024-09-03] MEDS: LEVOTHYROXINE SODIUM 112 MCG TAB PO SCH (06:10)
[2024-09-03] MEDS: LEVOTHYROXINE SODIUM 25 MCG TAB PO SCH (06:10)
[2024-09-03 09:31] LABS: Basophils # (auto) 0.1 10 ^3/uL (0-0.2); Basophils % (auto) 0.4 % (0.0-2.0); Eosinophils # (auto) 0 10 ^3/uL (0-0.8); Hematocrit 51.9 % (41.0-53.0); Hemoglobin 17.1 g/dL (13.5-17.5); Lymphocytes # (auto) 0.8 10 ^3/uL (0.4-5.4); Lymphocytes % (auto) 4.3 % (10.0-50.0); Mean Corpuscular Volume 90.8 fL (80.0-100.0); Monocytes # (auto) 0.7 10 ^3/uL (0-1.3); Monocytes % (auto) 3.9 % (0.0-12.0); Neutrophils # (auto) 16.6 10 ^3/uL (1.6-8.6); Neutrophils % (auto) 91.4 % (37.0-80.0); Platelet Count (auto) 217 10^3/uL (140-450); Red Blood Cells 5.71 10^6/uL (4.5-5.90); Red Cell Distribution Width 14.7 % (11.8-14.3); White Blood Cell 18.1 10^3/uL (4.4-10.8)
[2024-09-03] MEDS: ASPirin-EC 81 mg tab PO SCH (09:32)
[2024-09-03] MEDS ORDERED: clonazePAM 0.5 MG TAB PO PRN (09:45)
[2024-09-03 09:50] LABS: Alanine Aminotransferase 16 U/L (7-40); Albumin 4.3 g/dL (3.2-4.8); Alkaline Phosphatase 71 U/L (46-116); Anion Gap 9 (5-15); Aspartate Aminotransferase 16 U/L (13-40); BUN/Creatinine Ratio 23.7 (10.0-20.0); Calcium 10.1 mg/dL (8.7-10.4); Carbon Dioxide 28 mmol/L (20-31); Chloride 100 mmol/L (98-107); Magnesium 1.8 mg/dL (1.6-2.6); Potassium 4.4 mmol/L (3.5-5.1); Sodium 137 mmol/L (136-145); Total Protein 6.8 g/dL (5.7-8.2)
[2024-09-03 09:51] LABS: Bilirubin, Total 0.5 mg/dL (0.2-1.0); Blood Urea Nitrogen 33 mg/dL (9-23); Glucose 153 mg/dL (74-106)
[2024-09-03] MEDS: clonazePAM 0.5 MG TAB PO PRN (11:08)
[2024-09-03] MEDS: ACETAMINOPHEN 325 MG TAB PO PRN (11:10)
--- NOTE | 2024-09-03 12:25 | DVHINCON2 ---
Date of Service if different f: Sep 03, 2024 Consultation ([facility]) Consulting Physician: DEANA CUNNINGHAM MD Progress: Better Labs Laboratory Tests Test 09/02/24 12:07 09/02/24 12:58 09/02/24 14:03 09/02/24 15:12 B-Type Natriuretic Peptide 480.05 pg/mL (0-100) Urine Color Light-yellow (Yellow) Urine Clarity Clear (Clear) Urine pH 5.0 (5.0-9.0) Urine Specific [place] 1.012 (1.001-1.035) Urine Protein Negative (Negative) Urine Ketones Negative (Negative) Urine Blood Negative /uL (Negative) Urine Nitrite Negative (Negative) Urine Bilirubin Negative (Negative) Urine Urobilinogen Normal mg/dL (Negative) Urine Leukocyte Esterase Negative /uL (Negative) Urine RBC 1 /hpf (0 - 3) Urine Microscopic WBC 1 /HPF (0-3) Urine Squamous Epithelial Cells None seen /hpf (<5) Urine Bacteria None seen /hpf (None Seen) Urine Glucose 4+ mg/dL (Normal) Urine Opiates Screen Neg (NEGATIVE) Urine Fentanyl Screen Neg (NEGATIVE) Urine Barbiturates Screen Neg (NEGATIVE) Urine Phencyclidine Screen Neg (NEGATIVE) Urine Amphetamines Screen Pos (NEGATIVE) Urine Benzodiazepines Screen Neg (NEGATIVE) Urine Cocaine Screen Neg (NEGATIVE) Urine Cannabinoids Screen Neg (NEGATIVE) Lactic Acid Level 2.2 mmol/L (0.4-2.0) Troponin I High Sensitivity 20 ng/L (</=54) Test 09/03/24 08:42 White Blood Count 18.1 10^3/uL (4.4-10.8) Red Blood Count 5.71 10^6/uL (4.5-5.90) Hemoglobin 17.1 g/dL (13.5-17.5) Hematocrit 51.9 % (41.0-53.0) Mean Corpuscular Volume 90.8 fL (80.0-100.0) Mean Corpuscular Hemoglobin 30.0 pg (28.0-32.0) Mean Corpuscular Hemoglobin Concent 33.0 g/dL (32.0-36.0) Red Cell Distribution Width 14.7 % (11.8-14.3) Platelet Count 217 10^3/uL (140-450) Mean Platelet Volume 9.0 fL (6.9-10.8) Neutrophils (%) (Auto) 91.4 % (37.0-80.0) Lymphocytes (%) (Auto) 4.3 % (10.0-50.0) Monocytes (%) (Auto) 3.9 % (0.0-12.0) Eosinophils (%) (Auto) 0.0 % (0.0-7.0) Basophils (%) (Auto) 0.4 % (0.0-2.0) Neutrophils # (Auto) 16.6 10 ^3/uL (1.6-8.6) Lymphocytes # (Auto) 0.8 10 ^3/uL (0.4-5.4) Monocytes # (Auto) 0.7 10 ^3/uL (0-1.3) Eosinophils # (Auto) 0 10 ^3/uL (0-0.8) Basophils # (Auto) 0.1 10 ^3/uL (0-0.2) Nucleated Red Blood Cells 0.0 % Sodium Level 137 mmol/L (136-145) Potassium Level 4.4 mmol/L (3.5-5.1) Chloride Level 100 mmol/L (98-107) Carbon Dioxide Level 28 mmol/L (20-31) Anion Gap 9 (5-15) Blood Urea Nitrogen 33 mg/dL (9-23) Creatinine 1.39 mg/dL (0.700-1.30) Glomerular Filtration Rate Calc 57 mL/min (>90) BUN/Creatinine Ratio 23.7 (10.0-20.0) Serum Glucose 153 mg/dL (74-106) Calcium Level 10.1 mg/dL (8.7-10.4) Magnesium Level 1.8 mg/dL (1.6-2.6) Total Bilirubin 0.5 mg/dL (0.2-1.0) Aspartate Amino Transf (AST/SGOT) 16 U/L (13-40) Alanine Aminotransferase (ALT/SGPT) 16 U/L (7-40) Alkaline Phosphatase 71 U/L (46-116) Total Protein 6.8 g/dL (5.7-8.2) Albumin 4.3 g/dL (3.2-4.8) Appetite: Good Side effects of medications: No Appearance: Stated age Psychomotor activity: WNL Behavioral: Cooperative Eye contact: Appropriate Speech: WNL Affect: Appropriate Mood: Euthymic Thought processes: Linear/Goal-directed Thought content: WNL Suicidal ideations: Absent Homicidal ideations: Absent Orientation: Person, Place, Time, Situation Memory intact: Recent Intellect: Average Abstractability: WNL Concentration: Adequate Attention: Adequate Judgement: WNL Insight: Good Vitals Vital Signs Date Time Temp Pulse Resp B/P (MAP) Pulse Ox O2 Delivery O2 Flow Rate FiO2 09/03/24 09:41 99 109/72 09/03/24 09:00 97.9 19 97 97.9 09/03/24 00:04 Room Air 0.0 09/03/24 00:04 21 Current medications Current Medications Medications Dose Ordered Sig/Manuel Route Start Time Stop Time Status Last Admin Dose Admin Nitroglycerin 0.4 mg Q5MINP PRN SL 09/02/24 14:45 Morphine Sulfate 2 mg Q30M PRN IV 09/02/24 14:45 Hold Doxycycline Hyclate 100 ml @ 50 mls/hr Q12HR IV 09/02/24 14:45 09/03/24 09:32 50 MLS/HR Albuterol 2.5 mg Q4HPRN PRN NEB 09/02/24 14:45 09/03/24 00:04 2.5 MG Aspirin 81 mg DAILY PO 09/03/24 10:00 09/03/24 09:32 81 MG Metoprolol Tartrate 12.5 mg BID PO 09/02/24 22:00 09/02/24 22:01 12.5 MG Sacubitril/ Valsartan 1 tab BID PO 09/02/24 22:00 09/03/24 09:30 1 TAB Levothyroxine Sodium 112 mcg QAM PO 09/03/24 07:00 09/03/24 06:10 112 MCG Levothyroxine Sodium 25 mcg QAM PO 09/03/24 07:00 09/03/24 06:10 25 MCG Furosemide 40 mg BID@0600,1800 IV 09/03/24 06:00 09/03/24 05:44 40 MG Tamsulosin HCl 0.8 mg QPM PO 09/03/24 18:00 Acetaminophen 650 mg Q6HP PRN PO 09/03/24 09:45 09/03/24 11:10 650 MG Clonazepam 0.5 mg Q12HR PRN PO 09/03/24 10:00 09/03/24 11:08 0.5 MG Medication adjusted: Yes Labs ordered: No Psychotherapy provided: Yes Diagnosis: RADHA by history. Plan : The pt has been stable on Klonopin 0.5 mg BID for years and does appear to require it daily twice a day. Pt is open to trying inderal instead as klonopin may cause the pt to veer towards alcohol relapse. But given that the use is so chronic, it may be worthwhile to just continue it and have the pt f/u with new OP psychiatrist or PCP who will prescribe it. Alternatively, depending on comfort level of the physician, the pt could be started on Inderal ER 80 mg once a day and clonidine 0.05 to 0.1 mgf could be given at night to help with sleep. Pt cannot tolerate melatonin. Pt was given info about ORC Valerian root extract and Chamomile extract to help with breakthrough symptoms if transitioning to beta amaury and clonidine. Given that pt has cardiac issues, it the provider feels beta amaury is not a good idea, then recommend continuing klonopin as is. there are no safety concerns and pt does not want SSRI. History of Present Illness Reason for Consult : HPI : Pt says that he used to see a psychiatrist in [facility] and he recently retired. Pt used to be on klonopin 0.5 mg. Pt would like a prescription to go home with when he leaves because he has 1 pills left and he gets very anxious at night some times and it keeps him awake. Pt has been using klonopin for years at the saem dose twice a day. Denies feeling depressed or suicidal. Pt becomes tearful when talking about his family and loss of older siblings. Pt talks about about his extended family and his nieces and nephews, never had his old kids. Pt has 26 grand nieces. Pt denies any AVH. Denies currently using any meth. Last used 6 months ago and last used alcohol 2 months ago. P:t very proud of his early recovery. Past Psychiatric History : In [place] a couple of times for alcohol and drug related issues. Pt is sober for 2 months. Past Medical History : Father brother and sister at age 67. Oldest brother at age 70 because he had a pacemaker like the pt. Social History : Pt lives 80 [address] from his older sister. Other sister lives in [facility]. Assessment/Diagnosis/Plan Reviewed: Consults, Care Plan DEANA CUNNINGHAM MD Sep 03, 2024 12:25
--- NOTE | 2024-09-03 14:00 | DVHPN2 ---
Progress Note Date Seen: Sep 03, 2024 Medical Necessity Reason Pt with a Central, PICC or Fol: No Subjective Review of Systems: CVS:Normal, RESPIRATORY:Normal, :Normal Objective vital signs Vital Sign Date Time Temp Pulse Resp B/P (MAP) Pulse Ox O2 Delivery O2 Flow Rate FiO2 09/03/24 10:15 93 Room Air 09/03/24 10:15 0 21 09/03/24 09:41 99 109/72 09/03/24 09:00 97.9 19 97.9 Total Intake and Output 09/02/24 09/02/24 09/03/24 15:00 23:00 07:00 Intake Total 50 ml 100 ml 750 ml Balance 50 ml 100 ml 750 ml medications Current Medications Medications Dose Ordered Sig/Manuel Route Start Time Stop Time Status Last Admin Dose Admin Nitroglycerin 0.4 mg Q5MINP PRN SL 09/02/24 14:45 Morphine Sulfate 2 mg Q30M PRN IV 09/02/24 14:45 Hold Doxycycline Hyclate 100 ml @ 50 mls/hr Q12HR IV 09/02/24 14:45 09/03/24 09:32 50 MLS/HR Albuterol 2.5 mg Q4HPRN PRN NEB 09/02/24 14:45 09/03/24 00:04 2.5 MG Aspirin 81 mg DAILY PO 09/03/24 10:00 09/03/24 09:32 81 MG Metoprolol Tartrate 12.5 mg BID PO 09/02/24 22:00 09/02/24 22:01 12.5 MG Sacubitril/ Valsartan 1 tab BID PO 09/02/24 22:00 09/03/24 09:30 1 TAB Levothyroxine Sodium 112 mcg QAM PO 09/03/24 07:00 09/03/24 06:10 112 MCG Levothyroxine Sodium 25 mcg QAM PO 09/03/24 07:00 09/03/24 06:10 25 MCG Furosemide 40 mg BID@0600,1800 IV 09/03/24 06:00 09/03/24 05:44 40 MG Tamsulosin HCl 0.8 mg QPM PO 09/03/24 18:00 Acetaminophen 650 mg Q6HP PRN PO 09/03/24 09:45 09/03/24 11:10 650 MG Clonazepam 0.5 mg Q12HR PRN PO 09/03/24 10:00 09/03/24 11:08 0.5 MG Examination: GENERAL:Normal, HEENT:Normal, LUNGS:Normal, CVS:Normal, ABDOMEN:Normal, SKIN:Normal, NEURO:Normal laboratory and microbiology Laboratory Tests 09/03/24 08:42 Test 09/03/24 08:42 Range/Units Serum Glucose 153 H 74-106 mg/dL Labs and/or images reviewed: Labs reviewed by me, Image(s) reviewed by me Problem List/Assessment/Plan Problem List/Assessment/Plan 1. Acute hypoxic respiratory failure likely from COPD exacerbation med neb treatment 2. HLD Monitor, medications 3. GERD Monitor, PPI 4. Hypothyroid Monitor, medications 5. Pacemaker Monitor, cardiology consult 6. Smoker Monitor, smoking cessation 7. Acute on chronic combined systolic and diastolic CHF Monitor, cardiology consult, diuretics 8. Nonischemic cardiomyopathy 9. methamphetamine abuse counseled to stop 10. Lactic acidosis Monitor 11. Vasomotor nephropathy Monitor Subjective: Awake and alert Objective: Patient was admitted for acute hypoxic respiratory failure likely related to a combination of COPD exacerbation and acute on chronic combined systolic and diastolic heart failure. Patient was placed on IV diuretics and likely develop MÓNICA due to vasomotor nephropathy. Patient reports that he still feels intermittent chest pain which is likely related to CHF exacerbation. Cardiac consult is pending, troponins are negative x3. Patient has multiple admissions for the same issue, patient has history of leaving AMA. UDS was positive for methamphetamine. Patient reports feeling anxious at home and tele psych was done who was recommending to refill Klonopin 0.5 q.12 hours. Plan: Continue with IV diuretics, 1000 mL fluid restriction, continue with med and treatments, possible discharge tomorrow, continue Klonopin as requested by psychiatrist Plan discussed with: Patient My Orders My Orders Orders - CHERRY PARRISH Procedure Category Date Status Time Admit ADMIT 09/02/24 Transmitted 14:36 Nitroglycerin PHA 09/02/24 In Process Sublingual (Ntrostat 14:45 Morphine Sulfate PHA 09/02/24 In Process Injection 14:45 Stat Ekg For Chest TERRI 09/02/24 In Process Pain 14:36 Notify Of Changes TERRI 09/02/24 In Process From Base 14:36 Handicapped Teacher For TERRI 09/02/24 In Process 24 Hours 14:36 Emergency Dysrhythmia TERRI 09/02/24 In Process Protocol 14:36 Rhythm Strips Once TERRI 09/02/24 In Process Every Shift 14:36 Oxygen By Nasal RT 09/02/24 Transmitted Cannula 14:36 Doxycycline PHA 09/02/24 In Process 100mg/100ml 14:45 Albuterol Medneb PHA 09/02/24 In Process (Ventolin Medneb) 14:45 Aspirin Enteric PHA 09/03/24 In Process Coated Tablet 10:00 Metoprolol Tartrate PHA 09/02/24 In Process Tablet (Lopressor Ta 22:00 Sacubitril-Valsartan PHA 09/02/24 In Process (Entresto 24-26 Mg 22:00 Levothyroxine Tablet PHA 09/03/24 In Process (Synthroid Tablet) 07:00 Cardiac DIET 09/02/24 Transmitted Diet-2gna,Lofat,Lochol Dinner Levothyroxine Tablet PHA 09/03/24 In Process (Synthroid Tablet) 07:00 Furosemide Injection PHA 09/03/24 In Process (Lasix Injection) 06:00 Tamsulosin PHA 09/03/24 In Process Hydrochloride (Flomax) 18:00 * Cardiology Consult CONS 09/03/24 Transmitted 06:47 Acetaminophen Tablet PHA 09/03/24 In Process (Tylenol Tablet) 09:45 Soc Telemed Psych CONS 09/03/24 Transmitted Consult 09:37 Clonazepam Tablet PHA 09/03/24 In Process (Klonopin Tablet) 10:00 Date of Service: Sep 03, 2024 Billing Provider: JD HOUGH MD Common Visit Codes: [id number] INP/OBS CARE (MOD) CHERRY PARRISH ONCOLOGY NURSE NAVIGATOR Sep 03, 2024 14:00
[2024-09-03] MEDS: TAMSULOSIN HYDROCHLORIDE 0.4 MG CAP PO SCH (17:32)
[2024-09-04] VITALS (10 sets, daily range): BP systolic 90–114; BP diastolic 57–68; PULSE 71–104; RESP 15–20; TEMP 97.5–98.1; O2SAT 95–100
[2024-09-04 09:58] LABS: Basophils # (auto) 0.1 10 ^3/uL (0-0.2); Eosinophils # (auto) 0.1 10 ^3/uL (0-0.8); Eosinophils % (auto) 1.2 % (0.0-7.0); Hematocrit 49.2 % (41.0-53.0); Hemoglobin 16.5 g/dL (13.5-17.5); Lymphocytes # (auto) 1.7 10 ^3/uL (0.4-5.4); Lymphocytes % (auto) 20.5 % (10.0-50.0); Mean Corpuscular Hemoglobin 30.1 pg (28.0-32.0); Mean Corpuscular Hgb Conc. 33.5 g/dL (32.0-36.0); Mean Corpuscular Volume 89.7 fL (80.0-100.0); Monocytes # (auto) 0.7 10 ^3/uL (0-1.3); Monocytes % (auto) 7.9 % (0.0-12.0); Neutrophils # (auto) 5.8 10 ^3/uL (1.6-8.6); Neutrophils % (auto) 69.4 % (37.0-80.0); Platelet Count (auto) 228 10^3/uL (140-450); Red Blood Cells 5.49 10^6/uL (4.5-5.90); Red Cell Distribution Width 14.9 % (11.8-14.3); White Blood Cell 8.4 10^3/uL (4.4-10.8)
[2024-09-04 10:13] LABS: Alanine Aminotransferase 14 U/L (7-40); Albumin 3.7 g/dL (3.2-4.8); Alkaline Phosphatase 61 U/L (46-116); Anion Gap 8 (5-15); Aspartate Aminotransferase 14 U/L (13-40); BUN/Creatinine Ratio 28.9 (10.0-20.0); Bilirubin, Total 0.5 mg/dL (0.2-1.0); Calcium 9.3 mg/dL (8.7-10.4); Carbon Dioxide 26 mmol/L (20-31); Chloride 102 mmol/L (98-107); Magnesium 1.8 mg/dL (1.6-2.6); Sodium 136 mmol/L (136-145)
[2024-09-04 10:24] LABS: Blood Urea Nitrogen 44 mg/dL (9-23); Glucose 161 mg/dL (74-106); Potassium 3.5 mmol/L (3.5-5.1)
--- NOTE | 2024-09-04 12:31 | DVHPN2 ---
Progress Note Date Seen: Sep 04, 2024 Medical Necessity Reason Pt with a Central, PICC or Fol: No Subjective Patient reports: No new complaints Review of Systems: CVS:Normal, RESPIRATORY:Normal, GI:Normal, :Normal, NEURO:Normal Objective vital signs Vital Sign Date Time Temp Pulse Resp B/P (MAP) Pulse Ox O2 Delivery O2 Flow Rate FiO2 09/04/24 09:00 98.1 87 20 114/62 (79) 95 98.1 09/03/24 22:15 Room Air 0.0 09/03/24 22:15 21 Total Intake and Output 09/03/24 09/03/24 09/04/24 15:00 23:00 07:00 Intake Total 100 ml 650 ml 1100 ml Balance 100 ml 650 ml 1100 ml medications Current Medications Medications Dose Ordered Sig/Manuel Route Start Time Stop Time Status Last Admin Dose Admin Nitroglycerin 0.4 mg Q5MINP PRN SL 09/02/24 14:45 Morphine Sulfate 2 mg Q30M PRN IV 09/02/24 14:45 Hold Doxycycline Hyclate 100 ml @ 50 mls/hr Q12HR IV 09/02/24 14:45 09/04/24 08:53 50 MLS/HR Albuterol 2.5 mg Q4HPRN PRN NEB 09/02/24 14:45 09/03/24 14:53 2.5 MG Aspirin 81 mg DAILY PO 09/03/24 10:00 09/04/24 08:52 81 MG Metoprolol Tartrate 12.5 mg BID PO 09/02/24 22:00 09/04/24 08:52 12.5 MG Sacubitril/ Valsartan 1 tab BID PO 09/02/24 22:00 09/04/24 08:52 1 TAB Levothyroxine Sodium 112 mcg QAM PO 09/03/24 07:00 09/04/24 05:27 112 MCG Levothyroxine Sodium 25 mcg QAM PO 09/03/24 07:00 09/04/24 05:27 25 MCG Furosemide 40 mg BID@0600,1800 IV 09/03/24 06:00 09/04/24 05:27 40 MG Tamsulosin HCl 0.8 mg QPM PO 09/03/24 18:00 09/03/24 17:32 0.8 MG Acetaminophen 650 mg Q6HP PRN PO 09/03/24 09:45 09/04/24 09:00 650 MG Clonazepam 0.5 mg Q12HR PRN PO 09/03/24 10:00 09/04/24 11:32 0.5 MG Examination: GENERAL:Normal, LUNGS:Normal, CVS:Normal, ABDOMEN:Normal, SKIN:Normal laboratory and microbiology Laboratory Tests 09/04/24 09:35 Test 09/04/24 09:35 Range/Units Serum Glucose 161 H 74-106 mg/dL Labs and/or images reviewed: Labs reviewed by me, Image(s) reviewed by me Problem List/Assessment/Plan Problem List/Assessment/Plan 1. Acute hypoxic respiratory failure likely from COPD exacerbation med neb treatment 2. HLD Monitor, medications 3. GERD Monitor, PPI 4. Hypothyroid Monitor, medications 5. Pacemaker Monitor, cardiology consult 6. Smoker Monitor, smoking cessation 7. Acute on chronic combined systolic and diastolic CHF Monitor, cardiology consult, diuretics 8. Nonischemic cardiomyopathy 9. methamphetamine abuse counseled to stop 10. Lactic acidosis Monitor 11. Vasomotor nephropathy Monitor Subjective: Awake and alert Objective: Patient was admitted for acute hypoxic respiratory failure likely related to a combination of COPD exacerbation and acute on chronic combined systolic and diastolic heart failure. Patient was placed on IV diuretics and likely develop MÓNICA due to vasomotor nephropathy. Patient reports that he still feels intermittent chest pain which is likely related to CHF exacerbation. Cardiac consult is pending, troponins are negative x3. Patient has multiple admissions for the same issue, patient has history of leaving AMA. UDS was positive for methamphetamine. Patient reports feeling anxious at home and tele psych was done who was recommending to refill Klonopin 0.5 q[address] Montalvo as outpatient and patient reports that forensic economist was going to order outpatient stress test. Cardiology consult is still pending we will keep until tomorrow for cardiac consult evaluation Plan: Continue with IV diuretics, 1000 mL fluid restriction, continue with med and treatments, await cardiac consult. continue Klonopin as requested by psychiatrist Plan discussed with: Patient Date of Service: Sep 04, 2024 Billing Provider: JD HOUGH MD Common Visit Codes: [id number] INP/OBS CARE (MOD) CHERRY PARRISH BILINGUAL LEGAL ASSISTANT Sep 04, 2024 12:31
[2024-09-04] MEDS: NICOTINE 21MG/24 HR TOPICAL PATCH TD ONE (20:15)
[2024-09-05] VITALS (12 sets, daily range): BP systolic 96–107; BP diastolic 52–71; PULSE 78–97; RESP 15–18; TEMP 97.8–98.2; O2SAT 90–99
[2024-09-05 07:45] LABS: Basophils # (auto) 0.1 10 ^3/uL (0-0.2); Basophils % (auto) 1.3 % (0.0-2.0); Eosinophils # (auto) 0.3 10 ^3/uL (0-0.8); Eosinophils % (auto) 4.3 % (0.0-7.0); Hematocrit 51.3 % (41.0-53.0); Hemoglobin 16.8 g/dL (13.5-17.5); Lymphocytes # (auto) 1.8 10 ^3/uL (0.4-5.4); Lymphocytes % (auto) 22.5 % (10.0-50.0); Mean Corpuscular Hemoglobin 29.9 pg (28.0-32.0); Mean Corpuscular Hgb Conc. 32.7 g/dL (32.0-36.0); Mean Corpuscular Volume 91.3 fL (80.0-100.0); Monocytes # (auto) 0.9 10 ^3/uL (0-1.3); Neutrophils # (auto) 4.7 10 ^3/uL (1.6-8.6); Neutrophils % (auto) 59.9 % (37.0-80.0); Nucleated Red Blood Cells % 0.2 %; Platelet Count (auto) 226 10^3/uL (140-450); Red Blood Cells 5.62 10^6/uL (4.5-5.90); Red Cell Distribution Width 14.7 % (11.8-14.3); White Blood Cell 7.8 10^3/uL (4.4-10.8)
[2024-09-05 07:59] LABS: Chloride 102 mmol/L (98-107); Sodium 137 mmol/L (136-145)
[2024-09-05 08:00] LABS: Anion Gap 7 (5-15); Carbon Dioxide 28 mmol/L (20-31)
[2024-09-05 08:01] LABS: Calcium 9.6 mg/dL (8.7-10.4)
[2024-09-05 08:06] LABS: BUN/Creatinine Ratio 24.8 (10.0-20.0); Glucose 95 mg/dL (74-106)
[2024-09-05 08:14] LABS: Blood Urea Nitrogen 38 mg/dL (9-23)
[2024-09-05] MEDS: NICOTINE 21MG/24 HR TOPICAL PATCH TD SCH (09:39)
--- NOTE | 2024-09-05 16:30 | DVHPN2 ---
Progress Note - Dictate Medical Necessity Reason Pt with a Central, PICC or Fol: No vital signs Vital Sign Date Time Temp Pulse Resp B/P (MAP) Pulse Ox O2 Delivery O2 Flow Rate FiO2 09/05/24 14:48 84 16 96/52 97 2.0 09/05/24 12:58 98.0 98.0 09/05/24 10:30 Nasal Cannula Total Intake and Output 09/04/24 09/04/24 09/05/24 15:00 23:00 07:00 Intake Total 400 ml 850 ml 205 ml Output Total 801 ml 1450 ml Balance 400 ml 49 ml -1245 ml medications Current Medications Medications Dose Ordered Sig/Manuel Route Start Time Stop Time Status Last Admin Dose Admin Nitroglycerin 0.4 mg Q5MINP PRN SL 09/02/24 14:45 Morphine Sulfate 2 mg Q30M PRN IV 09/02/24 14:45 Hold Doxycycline Hyclate 100 ml @ 50 mls/hr Q12HR IV 09/02/24 14:45 09/04/24 21:42 50 MLS/HR Albuterol 2.5 mg Q4HPRN PRN NEB 09/02/24 14:45 09/04/24 19:27 2.5 MG Aspirin 81 mg DAILY PO 09/03/24 10:00 09/05/24 09:38 81 MG Metoprolol Tartrate 12.5 mg BID PO 09/02/24 22:00 09/04/24 08:52 12.5 MG Sacubitril/ Valsartan 1 tab BID PO 09/02/24 22:00 09/05/24 09:38 1 TAB Levothyroxine Sodium 112 mcg QAM PO 09/03/24 07:00 09/05/24 05:33 112 MCG Levothyroxine Sodium 25 mcg QAM PO 09/03/24 07:00 09/05/24 05:33 25 MCG Furosemide 40 mg BID@0600,1800 IV 09/03/24 06:00 09/04/24 17:23 40 MG Tamsulosin HCl 0.8 mg QPM PO 09/03/24 18:00 09/04/24 17:23 0.8 MG Acetaminophen 650 mg Q6HP PRN PO 09/03/24 09:45 09/04/24 09:00 650 MG Clonazepam 0.5 mg Q12HR PRN PO 09/03/24 10:00 09/05/24 13:14 0.5 MG Nicotine 1 patch DAILY TD 09/05/24 10:00 laboratory and microbiology Laboratory Tests 09/05/24 07:15 Test 09/05/24 07:15 Range/Units Serum Glucose 95 74-106 mg/dL MANJULA LAN NP Sep 05, 2024 16:30
[2024-09-05] MEDS ORDERED: CLON0.5T4 PO (16:34)
[2024-09-05] MEDS ORDERED: DOXY100C79 PO (16:34)
[2024-09-05] MEDS ORDERED: PRED20TA2 PO (16:34)
--- NOTE | 2024-09-05 16:36 | DVHDS2 ---
Discharge Summary Date of Admission Sep 02, 2024 at 14:36 Labs/Diagnostic Data: Laboratory Results Test 09/05/24 07:15 09/04/24 09:35 09/02/24 15:12 09/02/24 14:03 White Blood Count 7.8 10^3/uL (4.4-10.8) Red Blood Count 5.62 10^6/uL (4.5-5.90) Hemoglobin 16.8 g/dL (13.5-17.5) Hematocrit 51.3 % (41.0-53.0) Mean Corpuscular Volume 91.3 fL (80.0-100.0) Mean Corpuscular Hemoglobin 29.9 pg (28.0-32.0) Mean Corpuscular Hemoglobin Concent 32.7 g/dL (32.0-36.0) Red Cell Distribution Width 14.7 % (11.8-14.3) Platelet Count 226 10^3/uL (140-450) Mean Platelet Volume 8.4 fL (6.9-10.8) Neutrophils (%) (Auto) 59.9 % (37.0-80.0) Lymphocytes (%) (Auto) 22.5 % (10.0-50.0) Monocytes (%) (Auto) 12.0 % (0.0-12.0) Eosinophils (%) (Auto) 4.3 % (0.0-7.0) Basophils (%) (Auto) 1.3 % (0.0-2.0) Neutrophils # (Auto) 4.7 10 ^3/uL (1.6-8.6) Lymphocytes # (Auto) 1.8 10 ^3/uL (0.4-5.4) Monocytes # (Auto) 0.9 10 ^3/uL (0-1.3) Eosinophils # (Auto) 0.3 10 ^3/uL (0-0.8) Basophils # (Auto) 0.1 10 ^3/uL (0-0.2) Nucleated Red Blood Cells 0.2 % Sodium Level 137 mmol/L (136-145) Potassium Level 5.0 mmol/L (3.5-5.1) Chloride Level 102 mmol/L (98-107) Carbon Dioxide Level 28 mmol/L (20-31) Anion Gap 7 (5-15) Blood Urea Nitrogen 38 mg/dL (9-23) Creatinine 1.53 mg/dL (0.700-1.30) Glomerular Filtration Rate Calc 50 mL/min (>90) BUN/Creatinine Ratio 24.8 (10.0-20.0) Serum Glucose 95 mg/dL (74-106) Calcium Level 9.6 mg/dL (8.7-10.4) Magnesium Level 1.8 mg/dL (1.6-2.6) Total Bilirubin 0.5 mg/dL (0.2-1.0) Aspartate Amino Transferase (AST) 14 U/L (13-40) Alanine Aminotransferase (ALT) 14 U/L (7-40) Alkaline Phosphatase 61 U/L (46-116) Total Protein 6.0 g/dL (5.7-8.2) Albumin 3.7 g/dL (3.2-4.8) Troponin I High Sensitivity 20 ng/L (</=54) Lactic Acid Level 2.2 mmol/L (0.4-2.0) Test 09/02/24 12:58 09/02/24 12:07 Urine Color Light-yellow (Yellow) Urine Clarity Clear (Clear) Urine pH 5.0 (5.0-9.0) Urine Specific [place] 1.012 (1.001-1.035) Urine Protein Negative (Negative) Urine Ketones Negative (Negative) Urine Blood Negative /uL (Negative) Urine Nitrite Negative (Negative) Urine Bilirubin Negative (Negative) Urine Urobilinogen Normal mg/dL (Negative) Urine Leukocyte Esterase Negative /uL (Negative) Urine RBC 1 /hpf (0 - 3) Urine Microscopic WBC 1 /HPF (0-3) Urine Squamous Epithelial Cells None seen /hpf (<5) Urine Bacteria None seen /hpf (None Seen) Urine Glucose 4+ mg/dL (Normal) Urine Opiates Screen Neg (NEGATIVE) Urine Fentanyl Screen Neg (NEGATIVE) Urine Barbiturates Screen Neg (NEGATIVE) Urine Phencyclidine Screen Neg (NEGATIVE) Urine Amphetamines Screen Pos (NEGATIVE) Urine Benzodiazepines Screen Neg (NEGATIVE) Urine Cocaine Screen Neg (NEGATIVE) Urine Cannabinoids Screen Neg (NEGATIVE) B-Type Natriuretic Peptide 480.05 pg/mL (0-100) Other Laboratory Tests 09/05/24 07:15 Discharge Statement: "Patient was advised to return to the ER or call 911 if any headaches, dizziness, shortness of breath, chest pain, abdominal pain, bleeding, fevers, or worsening of medical condition. Patient was counseled about treatment plan, medications, possible side effects, patientverbalized understanding. All questions were answered to the best of my ability. This discharge took greater then 30 minutes in planning, reviewing documentation, counseling the patient, and discussing with other team members." ASSESSMENT ASSESSMENT Assessment MANJULA LAN NP Sep 05, 2024 16:36
--- NOTE | 2024-09-05 18:41 | DVHPN2 ---
Progress Note - Dictate Date Seen: Sep 05, 2024 Medical Necessity Reason Pt with a Central, PICC or Fol: No vital signs Vital Sign Date Time Temp Pulse Resp B/P (MAP) Pulse Ox O2 Delivery O2 Flow Rate FiO2 09/05/24 18:27 107/71 09/05/24 16:59 97.8 83 16 96 97.8 09/05/24 14:48 2.0 28 09/05/24 10:30 Nasal Cannula Total Intake and Output 09/04/24 09/04/24 09/05/24 15:00 23:00 07:00 Intake Total 400 ml 850 ml 205 ml Output Total 801 ml 1450 ml Balance 400 ml 49 ml -1245 ml medications Current Medications Medications Dose Ordered Sig/Manuel Route Start Time Stop Time Status Last Admin Dose Admin Nitroglycerin 0.4 mg Q5MINP PRN SL 09/02/24 14:45 Morphine Sulfate 2 mg Q30M PRN IV 09/02/24 14:45 Hold Doxycycline Hyclate 100 ml @ 50 mls/hr Q12HR IV 09/02/24 14:45 09/04/24 21:42 50 MLS/HR Albuterol 2.5 mg Q4HPRN PRN NEB 09/02/24 14:45 09/04/24 19:27 2.5 MG Aspirin 81 mg DAILY PO 09/03/24 10:00 09/05/24 09:38 81 MG Metoprolol Tartrate 12.5 mg BID PO 09/02/24 22:00 09/04/24 08:52 12.5 MG Sacubitril/ Valsartan 1 tab BID PO 09/02/24 22:00 09/05/24 09:38 1 TAB Levothyroxine Sodium 112 mcg QAM PO 09/03/24 07:00 09/05/24 05:33 112 MCG Levothyroxine Sodium 25 mcg QAM PO 09/03/24 07:00 09/05/24 05:33 25 MCG Furosemide 40 mg BID@0600,1800 IV 09/03/24 06:00 09/05/24 18:27 40 MG Tamsulosin HCl 0.8 mg QPM PO 09/03/24 18:00 09/05/24 18:26 0.8 MG Acetaminophen 650 mg Q6HP PRN PO 09/03/24 09:45 09/04/24 09:00 650 MG Clonazepam 0.5 mg Q12HR PRN PO 09/03/24 10:00 09/05/24 13:14 0.5 MG Nicotine 1 patch DAILY TD 09/05/24 10:00 objective General Appearance: alert, no distress HEENT: EOMI, PERRLA, normal external inspect of ears, no icterus, no nasal drainage Neck: no carotid bruit, no jugular venous distention (JVD), no lymphadenopathy Chest: normal thorax Respiratory: clear to auscultation, normal air movement Cardiovascular: regular rate and rhythm, no diastolic murmur, no jugular venous distention (JVD), no rub, no systolic murmur Abdominal: soft, no hepatomegaly, no mass, no splenomegaly, no tenderness Genitourinary: grossly normal external Musculoskeletal: no joint tenderness, no swelling Extremities: normal pulses, no calf tenderness, no clubbing, no cyanosis, no edema Skin: no bruising, no jaundice, no rash Neurological: alert, No focal deficit laboratory and microbiology Laboratory Tests 09/05/24 07:15 Test 09/05/24 07:15 Range/Units Serum Glucose 95 74-106 mg/dL Problem List 1. Acute hypoxic respiratory failure likely from COPD exacerbation med neb treatment 2. HLD Monitor, medications 3. GERD Monitor, PPI 4. Hypothyroid Monitor, medications 5. Pacemaker Monitor, cardiology consult 6. Smoker Monitor, smoking cessation 7. Acute on chronic combined systolic and diastolic CHF Monitor, cardiology consult, diuretics 8. Nonischemic cardiomyopathy 9. methamphetamine abuse counseled to stop 10. Lactic acidosis Monitor 11. Vasomotor nephropathy Monitor Assessment/Plan Subjective: Patient is awake and alert. Objective: Patient was admitted for acute hypoxic respiratory failure related to COPD exacerbation. Patient with acute on chronic systolic heart failure. Patient is also a smoker. Patient has a history of nonischemic cardiomyopathy and was positive for methamphetamines. I consulted with Dr. Montalvo. Troponin levels were negative. Patient was cleared for discharge per cardiology. Patient was given a prescription for antibiotics for COPD exacerbation as well as a 5-day supply of oral prednisone. Patient requested one more hospital day stay. Plan: Continue current treatment. DC planning. Plan discussed with: Patient, Other MANJULA LAN NP Sep 05, 2024 18:41
[2024-09-06 05:00] VITALS: BP 112/66; PULSE 72; RESP 18; TEMP 98.2; O2SAT 98
[2024-09-06 07:10] VITALS: O2SAT 99
--- NOTE | 2024-09-06 07:48 | DVHINCON2 ---
Date of service: Sep 06, 2024 History of Present Illness 63 yo M with NICM, hx of ICD admitted for sob. pt seen by psych and got diuretic. he has had numerous admits over past few months. Past Medical History reviewed Family History: Alcoholism FH: arrhythmia G8 MOTHER FH: breast cancer G8 SISTER, , Cause: MS (myocardial infarction) FH: diabetes mellitus FH: heart attack G8 FATHER, , Cause: MS (myocardial infarction) G8 BROTHER, , Cause: MS (myocardial infarction) Family history: Cardiovascular disease G8 FATHER, , Cause: MS (myocardial infarction), Onset:40's - 50 Family history: Diabetes mellitus G8 MOTHER, Onset:40s - 50 G8 FATHER, , Cause: MS (myocardial infarction) G8 SISTER, , Cause: MS (myocardial infarction) Sister Allergies: Coded Allergies: Empagliflozin (Verified Allergy, Severe, 07/24/24) Morphine (Unverified Allergy, Unknown, 04/18/22) SEVERE BRADYCARDIA Home Meds Active Scripts Prednisone (Prednisone) 20 Mg Tab, 20 MG PO DAILY for 5 Days, #5 MG Prov:MANJULA LAN CAT BREEDER 09/05/24 Doxycycline (Monohydrate) (Doxycycline) 100 Mg Cap, 100 MG PO BID for 7 Days, #14 CAP Prov:MANJULA LAN CAT BREEDER 09/05/24 Clonazepam (Clonazepam) 0.5 Mg Tab, 1 TAB PO BID for 30 Days, #60 TAB Prov:MANJULA LAN CAT BREEDER 09/05/24 Metoprolol Tartrate (Metoprolol Tartrate) 25 Mg Tab, 0.5 TAB PO BID for 30 Days, #30 TAB 1 Refill Prov:MANJULA LAN CAT BREEDER 07/26/24 Aspirin (Aspirin Low Dose) 81 Mg Tab, 81 MG PO DAILY for 30 Days, #30 TAB Prov:MANJULA LAN CAT BREEDER 07/12/24 Potassium Chloride (Potassium Chloride ER) 10 Meq Tab, 10 MEQ PO BID for 30 Days, #60 TAB Prov:MANJULA LAN CAT BREEDER 07/11/24 Furosemide (Lasix) 40 Mg Tab, 40 MG PO BID for 30 Days, #60 TAB Prov:MANJULA LAN CAT BREEDER 07/11/24 Sacubitril-Valsartan (Entresto 24-26 mg) 1 Tab Tab, 1 TAB PO BID, #180 TAB Prov:EUN IL MD 09/16/23 Reported Medications Levothyroxine Sodium (Levothyroxine Sodium) 137 Mcg Tab, 1 TAB PO DAILY for 70 Days, #70 07/25/24 Albuterol Sulfate (Albuterol Sulfate Hfa) 108 Mcg/Act Aer 07/09/24 Tamsulosin Hcl (Tamsulosin Hcl) 0.4 Mg Cap, 0.8 MG PO DAILY AFTER MEAL, MG 09/14/23 Current Medications Current Medications Medications (Trade) Dose Ordered Sig/Manuel Route PRN Reason Start Time Stop Time Status Last Admin Nicotine (Nicoderm 21MG/ 24HR) 1 patch DAILY TD 09/05/24 10:00 Review of Systems 10 pt ros otherwise negative Vital Signs Vital Signs Date Time Temp Pulse Resp B/P (MAP) Pulse Ox O2 Delivery O2 Flow Rate FiO2 09/06/24 07:10 99 Room Air 0.0 09/06/24 07:10 21 09/06/24 05:54 112/66 09/06/24 05:00 98.2 72 18 98.2 Physical Exam nad s1 s2 rrr ctab soft nt/nd no leila Labs/Diagnostic Data Labs Test 09/05/24 07:15 09/04/24 09:35 09/02/24 15:12 09/02/24 14:03 Range/Units White Blood Count 7.8 4.4-10.8 10^3/uL Red Blood Count 5.62 4.5-5.90 10^6/uL Hemoglobin 16.8 13.5-17.5 g/dL Hematocrit 51.3 41.0-53.0 % Mean Corpuscular Volume 91.3 80.0-100.0 fL Mean Corpuscular Hemoglobin 29.9 28.0-32.0 pg Mean Corpuscular Hemoglobin Concent 32.7 32.0-36.0 g/dL Red Cell Distribution Width 14.7 H 11.8-14.3 % Platelet Count 226 140-450 10^3/uL Mean Platelet Volume 8.4 6.9-10.8 fL Neutrophils (%) (Auto) 59.9 37.0-80.0 % Lymphocytes (%) (Auto) 22.5 10.0-50.0 % Monocytes (%) (Auto) 12.0 0.0-12.0 % Eosinophils (%) (Auto) 4.3 0.0-7.0 % Basophils (%) (Auto) 1.3 0.0-2.0 % Neutrophils # (Auto) 4.7 1.6-8.6 10 ^3/uL Lymphocytes # (Auto) 1.8 0.4-5.4 10 ^3/uL Monocytes # (Auto) 0.9 0-1.3 10 ^3/uL Eosinophils # (Auto) 0.3 0-0.8 10 ^3/uL Basophils # (Auto) 0.1 0-0.2 10 ^3/uL Nucleated Red Blood Cells 0.2 % Sodium Level 137 136-145 mmol/L Potassium Level 5.0 3.5-5.1 mmol/L Chloride Level 102 98-107 mmol/L Carbon Dioxide Level 28 20-31 mmol/L Anion Gap 7 5-15 Blood Urea Nitrogen 38 H 9-23 mg/dL Creatinine 1.53 H 0.700-1.30 mg/dL Glomerular Filtration Rate Calc 50 >90 mL/min BUN/Creatinine Ratio 24.8 H 10.0-20.0 Serum Glucose 95 74-106 mg/dL Calcium Level 9.6 8.7-10.4 mg/dL Magnesium Level 1.8 1.6-2.6 mg/dL Total Bilirubin 0.5 0.2-1.0 mg/dL Aspartate Amino Transferase (AST) 14 13-40 U/L Alanine Aminotransferase (ALT) 14 7-40 U/L Alkaline Phosphatase 61 46-116 U/L Total Protein 6.0 5.7-8.2 g/dL Albumin 3.7 3.2-4.8 g/dL Troponin I High Sensitivity 20 </=54 ng/L Lactic Acid Level 2.2 *H 0.4-2.0 mmol/L Test 09/02/24 12:58 09/02/24 12:07 Range/Units Urine Color Light-yellow Yellow Urine Clarity Clear Clear Urine pH 5.0 5.0-9.0 Urine Specific Salley 1.012 1.001-1.035 Urine Protein Negative Negative Urine Ketones Negative Negative Urine Blood Negative Negative /uL Urine Nitrite Negative Negative Urine Bilirubin Negative Negative Urine Urobilinogen Normal Negative mg/dL Urine Leukocyte Esterase Negative Negative /uL Urine RBC 1 0 - 3 /hpf Urine Microscopic WBC 1 0-3 /HPF Urine Squamous Epithelial Cells None seen <5 /hpf Urine Bacteria None seen None Seen /hpf Urine Glucose 4+ H Normal mg/dL Urine Opiates Screen Neg NEGATIVE Urine Fentanyl Screen Neg NEGATIVE Urine Barbiturates Screen Neg NEGATIVE Urine Phencyclidine Screen Neg NEGATIVE Urine Amphetamines Screen Pos NEGATIVE Urine Benzodiazepines Screen Neg NEGATIVE Urine Cocaine Screen Neg NEGATIVE Urine Cannabinoids Screen Neg NEGATIVE B-Type Natriuretic Peptide 480.05 0-100 pg/mL Assessment acute on chronic NYHA class III systolic and diastolic HF non compliance psych disorder ckd htn Plan/Recommendation cont HF meds outpt fu po lasix/ diruretic re educate pt on importance of salt avoidance psych eval cv cleared for dc Plan discussed with: Patient DEREK SERRANO MD Sep 06, 2024 07:48
[2024-09-06 08:00] VITALS: PULSE 67
--- NOTE | 2024-09-06 08:32 | DVHDS2 ---
Discharge Summary Date of Admission Sep 02, 2024 at 14:36 Date of Discharge: Sep 06, 2024 Labs/Diagnostic Data: Laboratory Results Test 09/05/24 07:15 09/04/24 09:35 09/02/24 15:12 09/02/24 14:03 White Blood Count 7.8 10^3/uL (4.4-10.8) Red Blood Count 5.62 10^6/uL (4.5-5.90) Hemoglobin 16.8 g/dL (13.5-17.5) Hematocrit 51.3 % (41.0-53.0) Mean Corpuscular Volume 91.3 fL (80.0-100.0) Mean Corpuscular Hemoglobin 29.9 pg (28.0-32.0) Mean Corpuscular Hemoglobin Concent 32.7 g/dL (32.0-36.0) Red Cell Distribution Width 14.7 % (11.8-14.3) Platelet Count 226 10^3/uL (140-450) Mean Platelet Volume 8.4 fL (6.9-10.8) Neutrophils (%) (Auto) 59.9 % (37.0-80.0) Lymphocytes (%) (Auto) 22.5 % (10.0-50.0) Monocytes (%) (Auto) 12.0 % (0.0-12.0) Eosinophils (%) (Auto) 4.3 % (0.0-7.0) Basophils (%) (Auto) 1.3 % (0.0-2.0) Neutrophils # (Auto) 4.7 10 ^3/uL (1.6-8.6) Lymphocytes # (Auto) 1.8 10 ^3/uL (0.4-5.4) Monocytes # (Auto) 0.9 10 ^3/uL (0-1.3) Eosinophils # (Auto) 0.3 10 ^3/uL (0-0.8) Basophils # (Auto) 0.1 10 ^3/uL (0-0.2) Nucleated Red Blood Cells 0.2 % Sodium Level 137 mmol/L (136-145) Potassium Level 5.0 mmol/L (3.5-5.1) Chloride Level 102 mmol/L (98-107) Carbon Dioxide Level 28 mmol/L (20-31) Anion Gap 7 (5-15) Blood Urea Nitrogen 38 mg/dL (9-23) Creatinine 1.53 mg/dL (0.700-1.30) Glomerular Filtration Rate Calc 50 mL/min (>90) BUN/Creatinine Ratio 24.8 (10.0-20.0) Serum Glucose 95 mg/dL (74-106) Calcium Level 9.6 mg/dL (8.7-10.4) Magnesium Level 1.8 mg/dL (1.6-2.6) Total Bilirubin 0.5 mg/dL (0.2-1.0) Aspartate Amino Transferase (AST) 14 U/L (13-40) Alanine Aminotransferase (ALT) 14 U/L (7-40) Alkaline Phosphatase 61 U/L (46-116) Total Protein 6.0 g/dL (5.7-8.2) Albumin 3.7 g/dL (3.2-4.8) Troponin I High Sensitivity 20 ng/L (</=54) Lactic Acid Level 2.2 mmol/L (0.4-2.0) Test 09/02/24 12:58 09/02/24 12:07 Urine Color Light-yellow (Yellow) Urine Clarity Clear (Clear) Urine pH 5.0 (5.0-9.0) Urine Specific Hines 1.012 (1.001-1.035) Urine Protein Negative (Negative) Urine Ketones Negative (Negative) Urine Blood Negative /uL (Negative) Urine Nitrite Negative (Negative) Urine Bilirubin Negative (Negative) Urine Urobilinogen Normal mg/dL (Negative) Urine Leukocyte Esterase Negative /uL (Negative) Urine RBC 1 /hpf (0 - 3) Urine Microscopic WBC 1 /HPF (0-3) Urine Squamous Epithelial Cells None seen /hpf (<5) Urine Bacteria None seen /hpf (None Seen) Urine Glucose 4+ mg/dL (Normal) Urine Opiates Screen Neg (NEGATIVE) Urine Fentanyl Screen Neg (NEGATIVE) Urine Barbiturates Screen Neg (NEGATIVE) Urine Phencyclidine Screen Neg (NEGATIVE) Urine Amphetamines Screen Pos (NEGATIVE) Urine Benzodiazepines Screen Neg (NEGATIVE) Urine Cocaine Screen Neg (NEGATIVE) Urine Cannabinoids Screen Neg (NEGATIVE) B-Type Natriuretic Peptide 480.05 pg/mL (0-100) Other Laboratory Tests 09/05/24 07:15 Brief Hx & Hospital Course: 63-year-old male with a history of CHF, coronary artery disease, hypertension, methamphetamine abuse presents to the emergency room for chest pain for the last three days. Patient has multiple admissions for the same issue with history of leaving AMA. Patient also endorses some shortness of breath. Patient was admitted for acute on chronic systolic heart failure. Patient had chest pain. Troponin levels were negative. Acute coronary syndrome was ruled out. Most likely chest pain was related to CHF exacerbation. Home medications were continued. Patient also had COPD exacerbation. Patient was given a prescription for oral steroids and antibiotics. Patient has anxiety and he was given a prescription for antianxiety medication, which also could have contributed to his chest pain. He was instructed to follow-up with his PCP in 1 week and cardiology in 2 weeks. The patient received proper medical treatment and medications. Vital signs, Imaging and Laboratory Work was monitored daily. All consults recommendations were followed as provided. There were no complaints or new complaints upon discharge, all questions and concerns were answered. Patient was advised to return to the ER or call 911 if any headaches, dizziness, shortness of breath, chest pain, bleeding, fevers, or worsening of medical condition. Patient/Family was counseled about treatment plan, medications, possible side effects, patient verbalized understanding. All questions were answered to the best of my ability. The patient symptoms improved and they are okay to be DC. Condition at Discharge: Stable Final Diagnosis/Problems List Acute hypoxic respiratory failure HLD GERD Hypothyroid Pacemaker Smoker Acute on chronic combined systolic and diastolic CHF Nonischemic cardiomyopathy methamphetamine abuse Lactic acidosis Vasomotor nephropathy COPD exacerbation Cardiomyopathy Substance abuse Discharge Disposition: Home Discharge Instruct/Medications Diet: Cardiac 2g Na,low cholest Activity: No Restrictions, As Tolerated Follow Up/Referral: pcp 1 week Medications: continue home meds sent doxy and prednisone for copd exac Discharge Statement: "Patient was advised to return to the ER or call 911 if any headaches, dizziness, shortness of breath, chest pain, abdominal pain, bleeding, fevers, or worsening of medical condition. Patient was counseled about treatment plan, medications, possible side effects, patientverbalized understanding. All questions were answered to the best of my ability. This discharge took greater then 30 minutes in planning, reviewing documentation, counseling the patient, and discussing with other team members." ASSESSMENT ASSESSMENT Assessment Acute on chronic systolic chf exac copd exac cardiomyopathy substance abuse MANJULA LAN NP Sep 06, 2024 08:32
[2024-09-06 09:00] VITALS: BP 101/59; PULSE 79; RESP 16; TEMP 97.9; O2SAT 97
[2024-09-06 09:07] VITALS: BP 112/66; PULSE 72
[2024-09-06 10:02] VITALS: O2SAT 99
== END 2024-09-06 10:08 | disposition home or self-care (01) | DRG 133 ==
LOC: EDBD 11:47 → ER 11:47 → OVERFLOW 14:36 → TELE-WESTW 18:22
PROVIDERS: ADMIT Nurse Practitioner Family; ATTEND Nurse Practitioner Family
DX: J96.01 Acute respiratory failure with hypoxia (principal); N17.0 Acute kidney failure with tubular necrosis; I50.43 Acute on chronic combined systolic (congestive) and diastolic (congestive) heart failure; I13.0 Hypertensive heart and chronic kidney disease with heart failure and stage 1 through stage 4 chronic kidney disease, or unspecified chronic kidney disease; I42.8 Other cardiomyopathies; E87.20 Acidosis, unspecified; J44.1 Chronic obstructive pulmonary disease with (acute) exacerbation; E11.22 Type 2 diabetes mellitus with diabetic chronic kidney disease; E03.9 Hypothyroidism, unspecified; N18.9 Chronic kidney disease, unspecified; F19.10 Other psychoactive substance abuse, uncomplicated; F15.10 Other stimulant abuse, uncomplicated; E78.5 Hyperlipidemia, unspecified; K21.9 Gastro-esophageal reflux disease without esophagitis; I25.10 Atherosclerotic heart disease of native coronary artery without angina pectoris; F41.9 Anxiety disorder, unspecified; F17.210 Nicotine dependence, cigarettes, uncomplicated; Z95.810 Presence of automatic (implantable) cardiac defibrillator; Z91.199 Patient's noncompliance with other medical treatment and regimen due to unspecified reason; Z83.3 Family history of diabetes mellitus; Z87.442 Personal history of urinary calculi; Z82.49 Family history of ischemic heart disease and other diseases of the circulatory system; Z80.3 Family history of malignant neoplasm of breast; Z88.5 Allergy status to narcotic agent
CPT/HCPCS: 36415; 71045; 80048; 80053; 80307; 81001; 83605; 83735; 83880; 84484; 85025; 93005; 94640; 96365; 96375; 99291; G0378

== ENCOUNTER 2024-11-06 08:08 | Emergency (ER) | payer MEDICARE, MEDICAID ==
[~2024-11-06] VITALS: Ht 172.7 cm; Wt 81.8 kg
[~2024-11-06 08:08] MED LIST changes: +DOXY100C79 PO; +PRED20TA2 PO
--- NOTE | 2024-11-06 08:20 | ED.PDOC ---
SOB-HPI HPI Comments 64-year-old male presents with a chief complaint of SOB x 3 days. Patient states that he "just don't feel right". Patient denies any chest pain at this time. Patient is sating at 96% on room air and was ambulatory for EMS. 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 Past Medical History PAST MEDICAL HISTORY: Anxiety, CAD, CHF, CKF, COPD, Depression, DM, GERD, High Lipids, HTN, UT, Thyroid Surgical History: Pacemaker Family History Family History: Reviewed,noncontributory to illness, Unknown Social History Smoker: Cigarettes, Less Than 1 Pack/Day Alcohol: Denies ETOH Use Drugs: Denies Drug Use Lives In: Home Constitutional: denies: chills, diaphoresis, fatigue, fever, malaise, sweats, weakness, others EENTM: denies: blurred vision, double vision, ear bleeding, ear discharge, ear drainage, ear pain, ear ringing, eye pain, eye redness, hearing loss, mouth pain, mouth swelling, nasal discharge, nose bleeding, nose congestion, nose pain, photophobia, tearing, throat pain, throat swelling, voice changes, others Respiratory: reports: shortness of breath; denies: cough, hemoptysis, orthopnea, SOB at rest, SOB with excertion, stridor, wheezing, others Cardiovascular: denies: chest pain, dizzy spells, diaphoresis, Dyspnea on exertion, edema, irregular heart beat, left arm pain, lightheadedness, palpitations, PND, syncope, others Gastrointestinal: denies: abdomen distended, abdominal pain, blood streaked bowels, constipated, diarrhea, dysphagia, difficulty swallowing, hematemesis, melena, nausea, poor appetite, poor fluid intake, rectal bleeding, rectal pain, vomiting, others Genitourinary: denies: burning, dysuria, flank pain, frequency, hematuria, incontinence, penile discharge, penile sore, pain, testicle pain, testicle swelling, urgency, others Neurological: denies: dizziness, fainting, headache, left sided numbness, left sided weakness, numbness, paresthesia, pre-existing deficit, right sided numbness, right sided weakness, seizure, speech problems, tingling, tremors, weakness, others Musculoskeletal: denies: back pain, gout, joint pain, joint swelling, muscle pain, muscle stiffness, neck pain, others Integumetry: denies: bruises, change in color, change in hair/nails, dryness, laceration, lesions, lumps, rash, wounds, others Allergic/Immunocompromised: denies: Difficulty Healing, Frequent Infections, Hives, Itching, others Hematologic/Lymphatic: denies: anemia, blood clots, easy bleeding, easy bruising, swollen glands, others Endocrine: denies: excessive hunger, excessive sweating, excessive thirst, excessive urination, flushing, intolerance to cold, intolerance to heat, unexplained weight gain, unexplained weight loss, others Psychiatric: denies: anxiety, bipolar disorder, depression, hopeless, panic disorder, schizophrenia, sleepless, suicidal, others All Other Systems: Reviewed and Negative Physical Exam General Appearance: Moderate Distress, Normal HEENT: Normal ENT Inspection, Pharynx Normal, TMs Normal Neck: Full Range of Motion, Non-Tender, Normal, Normal Inspection Respiratory: Chest Non-Tender, Lungs Clear, No Accessory Muscle Use, No Respira tory Distress, Normal Breath Sounds Cardiovascular: No Edema, No JVD, No Murmur, No Gallop, Normal Peripheral Pulses, Regular Rate/Rhythm Breast Exam: Deferred Gastrointestinal: No Organomegaly, Non Tender, No Pulsatile Mass, Normal Bowel Sounds, Soft Genitalia: Deferred Pelvic: Deferred Rectal: Deferred Extremities: No calf tenderness, Normal capillary refill, Normal inspection, Normal range of motion, Non-tender, No pedal edema Musculoskeletal : Apperance: Normal Neurologic: Alert, dental manager II-XII nml as Tested, No Motor Deficits, Normal Affect, Normal Mood, No Sensory Deficits Cerebellar Function: Normal Reflexes: Normal Skin: Dry, Normal Color, Warm Peripheral Pulses: 3+ Radial (R), 3+ Radial (L) Lymphatic: No Adenopathy EKG EKG : Pulse Rate (adult): 88 Cardiac Rhythm: NSR Was a procedure done? Was a procedure done?: No Differential Dx Differential Diagnosis: Anxiety, Asthma, Bronchitis, CHF, COPD X-Ray, Labs, Meds, VS Vital Signs Date Time Temp Pulse Resp B/P (MAP) Pulse Ox O2 Delivery O2 Flow Rate FiO2 11/06/24 08:16 98.1 100 20 122/73 (89) 95 98.1 Patient alert. Complaining of shortness a breath. No leg swelling. Vitals stable. No sign of distress. He is on Lasix. Recently had pacemaker revised. He is comfortable. Saturation pristine on room air. Lungs clear. Heart rate within normal limits. No chest pain. Chest x-ray reviewed does not show any acute changes. Mild inflammation. Possible resolving pneumonitis EKG reviewed does not show any acute changes. Currently on antibiotics. He was told to continue his antibiotics. Explained to the patient. Was told to follow up with his primary care physician. Was told to come back if there is any problem. Time of 1ST Reevaluation: 08:45 Reevaluation 1ST: Improved Patient Education/Counseling: Diagnosis, Treatment, Need For Follow Up Family Education/Counseling: No Family Present SEPSIS Sepsis Screen Physician Orders Chest Portable (11/06/24 08:17) Prednisone Tablet (11/06/24 08:30) Basic Metabolic Panel (11/06/24 08:26) Vital Signs Date Time Temp Pulse Resp B/P (MAP) Pulse Ox O2 Delivery O2 Flow Rate FiO2 11/06/24 08:16 98.1 100 20 122/73 (89) 95 98.1 Departure 1 Departure Time of Disposition: 08:22 Impression: Primary Impression: Pneumonitis Disposition: 01 HOME / SELF CARE / HOMELESS Condition: Good Discharged With: Self Critical Care Note Critical Care Time?: No Stability Stability form required: No Heart Score Heart Score: Heart Score Response (Comments) Value History N/A 0 EKG N/A 0 Age N/A 0 Risk Factors N/A 0 Troponin N/A 0 Total 0 I personally scribed for DAVI SMITH MD ([email or web address]) on 11/06/24 at 08:19. Electronically submitted by Delgado Phan ([email or web address]). DAVI SMITH MD Nov 06, 2024 08:19
--- NOTE | 2024-11-06 08:26 | ECG ---
[facility] Test Date: 2024-11-06 Test Time: 08:21:51 Pat Name: XIAO HERNANDEZ Department: ED Room: Gender: M Copyman: : 1960 Requested By: DAVI SMITH Order Number: [id number] Reading MD: Measurements Intervals Critz Rate: 88 P: 37 OH: 161 QRS: -55 QRSD: 124 T: 121 QT: 386 QTc: 467 Interpretive Statements Sinus rhythm Multiform ventricular premature complexes Probable left atrial enlargement Nonspecific IVCD with LAD LVH with secondary repolarization abnormality Please click the below link to view image of tracing.
[2024-11-06] MEDS: predniSONE 5 MG TAB PO ONE (08:37)
[2024-11-06 08:40] VITALS: PULSE 99
[2024-11-06 09:04] LABS: Potassium 4.4 mmol/L (3.5-5.1); Sodium 144 mmol/L (136-145)
[2024-11-06 09:05] LABS: Anion Gap 8 (5-15); Carbon Dioxide 29 mmol/L (20-31)
[2024-11-06 09:10] LABS: BUN/Creatinine Ratio 21.8 (10.0-20.0); Calcium 10.5 mg/dL (8.7-10.4); Chloride 107 mmol/L (98-107); Glucose 100 mg/dL (74-106)
[2024-11-06 09:14] LABS: Blood Urea Nitrogen 31 mg/dL (9-23)
--- NOTE | 2024-11-06 09:33 | DVH ---
AP portable chest Comparison 2024 CLINICAL heart size enlarged. Pacer leads in the right atrium and right ventricle. No infiltrates or effusions. IMPRESSION: 1. No acute cardiopulmonary pathology
[2024-11-06 09:48] VITALS: BP 145/99; PULSE 98; RESP 16; TEMP 98; O2SAT 98
== END 2024-11-06 09:51 | disposition home or self-care (01) ==
LOC: ER 08:08 → EDBD 08:08 → ER 09:51
DX: J98.4 Other disorders of lung (principal); F17.210 Nicotine dependence, cigarettes, uncomplicated; F41.9 Anxiety disorder, unspecified; I11.0 Hypertensive heart disease with heart failure; I50.9 Heart failure, unspecified; E11.9 Type 2 diabetes mellitus without complications; F32.A Depression, unspecified; E78.5 Hyperlipidemia, unspecified; I25.10 Atherosclerotic heart disease of native coronary artery without angina pectoris; J44.0 Chronic obstructive pulmonary disease with (acute) lower respiratory infection; Z95.0 Presence of cardiac pacemaker
CPT/HCPCS: 36415; 71045; 80048; 93005; 99285; J7512

== ENCOUNTER 2024-12-20 14:07 | Inpatient (IN) | payer MEDICARE, MEDICAID ==
[~2024-12-20] VITALS: Ht 172.7 cm; Wt 83.8 kg
[~2024-12-20 14:07] MED LIST changes: +CARV6.2551 PO; +TIOT1AER2 INH
--- NOTE | 2024-12-20 14:28 | ED.PDOC ---
HPI Comments 64-year-old male presents with a chief complaint of chest pain and SOB. Patient states that he had a pacemaker box changed just before November 11, 2024 and states that since then has been having intermittent chest pain and SOB at night. Patient mentions that he originally had the pacemaker placed because "Dr. Montalvo told me I have a bad heart". Patient reports that the surgery took place at [facility]. PMHx: Anxiety, CAD, CHF, CKF, COPD, Depression, DM, GERD, HLD, HTN, MT, Thyroid Disease PSHx: Pacemaker HPI: Poor Historian. REVIEW OF SYSTEMS: CONSTITUTIONAL: Denies acute: fever, diaphoresis, chills, generalized weakness. HEAD: Denies acute: headache, photophobia Eyes: Denies acute: Double vision, vision loss, eye pain, eye discharge. EARS: Denies acute: tinnitus, hearing loss, ear discharge, ear pain, THROAT: Denies acute: sore throat, swelling, difficulty swallowing , pain with swallowing, change in voice. NECK: Denies acute: neck pain, neck swelling, stiff neck. HEART: Denies acute : palpitations, LUNGS: Denies acute: wheezing, cough, hemoptysis ABDOMEN: Denies acute: abdominal pain, Nausea, Vomiting, diarrhea, melena , hematemesis, hematochezia SKIN: Denies acute: rash, redness, lesions, itchiness. EXTREMITIES: Denies acute: calf pain, numbness, tingling, weakness, denies pain in extremity. Denies acute: Low back pain. Neuro: Denies acute: focal neurological deficit, motor or sensory focal neurological deficit, tremors, seizure like activity, confusion, dizziness, change in mental status, loss of bowel or bladder function, cauda equina like symptoms. : Denies acute: dysuria, hematuria, flank pain, increase in urinary frequency. PSYCH: Denies acute: hallucination, suicidal ideation, homicidal ideation. PHYSICAL EXAM: General: ------mild--acute distress, awake and alert. Head: normocephalic, atraumatic. Neck: supple, trachea is midline, no swelling. Throat: Normal phonation. Eyes:, no erythema, no purulent discharge, no proptosis, no icterus. Heart: regular rate, regular rhythm, no significant murmur appreciated. Lungs: no apparent respiratory distress, Able to speak in full sentences. No wheezing, no rhonchi, no crackles. No stridors Clear to auscultation bilaterally. Abdomen: non tender to palpation, non distended, soft, no guarding, no rebound, + bowel sounds. Evaluation of the pacemaker site. No erythema, no swelling, Neuro: Awake, Alert, oriented to name, self, situation, follows commands GCS=15. Speech is normal. Skin: no petechia, no purpura, no cyanosis, non-pale, not jaundice. Lower extremities: --no - Pitting edema no deformity, no focal swelling, no calf TTP. Makes eye contact. moves all four extremities. Face: no apparent facial droop. Ambulating in the ED independently. ED COURSE: DISCLAIMER: This medical document was created using an electronic medical record system with voice recognition software and computerized dictation system. Although this document has been carefully reviewed, there might still be some phonetic and typographical errors. Occasional wrong-word or "sound-alike" substitutions may have occurred due to the inherent limitations of voice recognition software. These areas are purely typographical due to imperfections of the software programs and do not reflect any compromise in the patient's medical care. Please read the chart carefully and recognize, using context, where these substitutions have occurred. Chief Complaint: Chest Pain Time Seen by MD: 14:17 Primary Care Provider: TRIP Reviewed Notes: Medications, Allergies Allergies: Coded Allergies: Empagliflozin (Verified Allergy, Severe, 07/24/24) Morphine (Unverified Allergy, Unknown, 04/18/22) SEVERE BRADYCARDIA Sulfamethoxazole w/Trimethoprim (Verified Allergy, Unknown, 11/06/24) Home Meds Active Scripts Prednisone (Prednisone) 20 Mg Tab, 20 MG PO DAILY for 5 Days, #5 MG Prov:MANJULA LAN NUT PROCESSING SUPERVISOR 09/05/24 Doxycycline (Monohydrate) (Doxycycline) 100 Mg Cap, 100 MG PO BID for 7 Days, #14 CAP Prov:MANJULA LAN NUT PROCESSING SUPERVISOR 09/05/24 Clonazepam (Clonazepam) 0.5 Mg Tab, 1 TAB PO BID for 30 Days, #60 TAB Prov:MANJULA LAN NUT PROCESSING SUPERVISOR 09/05/24 Metoprolol Tartrate (Metoprolol Tartrate) 25 Mg Tab, 0.5 TAB PO BID for 30 Days, #30 TAB 1 Refill Prov:MANJULA LAN NUT PROCESSING SUPERVISOR 07/26/24 Aspirin (Aspirin Low Dose) 81 Mg Tab, 81 MG PO DAILY for 30 Days, #30 TAB Prov:MANJULA LAN NUT PROCESSING SUPERVISOR 07/12/24 Potassium Chloride (Potassium Chloride ER) 10 Meq Tab, 10 MEQ PO BID for 30 Days, #60 TAB Prov:MANJULA LAN NUT PROCESSING SUPERVISOR 07/11/24 Furosemide (Lasix) 40 Mg Tab, 40 MG PO BID for 30 Days, #60 TAB Prov:MANJULA LAN NUT PROCESSING SUPERVISOR 07/11/24 Sacubitril-Valsartan (Entresto 24-26 mg) 1 Tab Tab, 1 TAB PO BID, #180 TAB Prov:EUN LI MD 09/16/23 Reported Medications Dapagliflozin Propanediol (Farxiga) 10 Mg Tab, 10 MG PO DAILY, TAB 12/22/24 Levothyroxine Sodium (Levothyroxine Sodium) 137 Mcg Tab, 1 TAB PO DAILY for 70 Days, #70 07/25/24 Albuterol Sulfate (Albuterol Sulfate Hfa) 108 Mcg/Act Aer 07/09/24 Tamsulosin Hcl (Tamsulosin Hcl) 0.4 Mg Cap, 0.8 MG PO DAILY AFTER MEAL, MG 09/14/23 Information Source: Patient Mode of Arrival: Ambulatory Past Medical History PAST MEDICAL HISTORY: Anxiety, CAD, CHF, CKF, COPD, Depression, DM, GERD, High Lipids, HTN, MT, Thyroid Surgical History: Pacemaker Family History Family History: Reviewed,noncontributory to illness, Unknown Social History Smoker: Cigarettes, Less Than 1 Pack/Day Alcohol: Denies ETOH Use Drugs: Denies Drug Use Lives In: Home Was a procedure done? Was a procedure done?: No CP Differential Dx Differential Diagnosis: Other (As far as dyspnea, DDx include ACS, unstable angina, anxiety, PE, pneumothroax, neoplasm, cardiac ischemia, COPD, asthma, CHF, pleural effusion, tobacco abuse, pneumonia, hypoxia, hypercapnia, anemia., infection/sepsis., pulmonary edema. Asthma, Cardiac tamponade, infection.), N/A Differential Diagnosis: Other (Ddx include but not limitied to gastritis, musculoskeletal pain, radiculopathy, atypical chest pain, dissection, aneurysm, ACS, unstable angina, hiatal hernia, GERD, anxiety, costochondritis, PE, pneumothroax, neoplasm, cardiac ischemia, drug abuse, anemia.) X-Ray, Labs, Meds, VS Vital Signs Date Time Temp Pulse Resp B/P (MAP) Pulse Ox O2 Delivery O2 Flow Rate FiO2 12/20/24 15:54 97.7 68 16 101/57 94 0.0 21 97.7 12/20/24 15:15 78 12/20/24 14:10 97.7 67 13 101/57 94 97.7 12/20/24 14:09 71 Lab Test 12/20/24 16:06 12/20/24 14:44 Range/Units Troponin I High Sensitivity 32 32 </=54 ng/L White Blood Count 8.5 4.4-10.8 10^3/uL Red Blood Count 5.54 4.5-5.90 10^6/uL Hemoglobin 16.5 13.5-17.5 g/dL Hematocrit 49.7 41.0-53.0 % Mean Corpuscular Volume 89.9 80.0-100.0 fL Mean Corpuscular Hemoglobin 29.9 28.0-32.0 pg Mean Corpuscular Hemoglobin Concent 33.3 32.0-36.0 g/dL Red Cell Distribution Width 15.7 H 11.8-14.3 % Platelet Count 209 140-450 10^3/uL Mean Platelet Volume 8.8 6.9-10.8 fL Neutrophils (%) (Auto) 37.0-80.0 % Lymphocytes (%) (Auto) 10.0-50.0 % Monocytes (%) (Auto) 0.0-12.0 % Eosinophils (%) (Auto) 0.0-7.0 % Basophils (%) (Auto) 0.0-2.0 % Neutrophils # (Auto) 1.6-8.6 10 ^3/uL Lymphocytes # (Auto) 0.4-5.4 10 ^3/uL Monocytes # (Auto) 0-1.3 10 ^3/uL Differential Total Cells Counted 100.0 100 Neutrophils % (Manual) 55 37.0-80.0 Band Neutrophils % (Manual) 1 Lymphocytes % (Manual) 20 10.0-50.0 Monocytes % (Manual) 6 0-12 Eosinophils % (Manual) 18 H 0-7 Basophils % (Manual) 0 0.0-2.0 Metamyelocytes % (manual) 0 Myelocytes % (Manual) 0 Promyelocytes % (Manual) 0 Blast Cells % (Manual) 0 Reactive Lymphocytes 0 Platelet Estimate Adequate Sodium Level 145 136-145 mmol/L Potassium Level 3.9 3.5-5.1 mmol/L Chloride Level 108 H 98-107 mmol/L Carbon Dioxide Level 30 20-31 mmol/L Anion Gap 7 5-15 Blood Urea Nitrogen 26 H 9-23 mg/dL Creatinine 1.71 H 0.700-1.30 mg/dL Glomerular Filtration Rate Calc 44 >90 mL/min BUN/Creatinine Ratio 15.2 10.0-20.0 Serum Glucose 100 74-106 mg/dL Calcium Level 8.8 8.7-10.4 mg/dL Total Bilirubin 0.4 0.2-1.0 mg/dL Aspartate Amino Transferase (AST) 24 13-40 U/L Alanine Aminotransferase (ALT) 39 7-40 U/L Alkaline Phosphatase 79 46-116 U/L B-Type Natriuretic Peptide 1316.41 0-100 pg/mL Total Protein 6.1 5.7-8.2 g/dL Albumin 4.0 3.2-4.8 g/dL Thyroid Stimulating Hormone (TSH) 0.74 0.55-4.78 uIU/mL [place] [id number] Ph: [phone] DIAGNOSTIC IMAGING Diagnostic Imaging Report : [id number] Signed PATIENT: XIAO HERNANDEZ ACCT: [id number] UNIT: [id number] : 1960 LOC: ER ROOM / BED: / AGE / SEX: 64 / M ADM STATUS: REG ER SERVICE 2288 ORDERING PHYSICIAN: TERRENCE ALVA DO PROCEDURE(s): CXRP - CHEST PORTABLE REASON: cp ORDER NUMBER(s): [id number], ACCESSION NUMBER(s): [id number] CHEST RADIOGRAPH Indication: cp Technique: Single frontal view of the chest was obtained COMPARISON: XY CHEST PORTABLE on DOS: 11/06/24, XY CHEST PORTABLE on DOS: 09/02/24, XY CHEST PORTABLE on DOS: 08/31/24, XY CHEST PORTABLE on DOS: 07/30/24, XY CHEST PORTABLE on DOS: 07/24/24 FINDINGS: Lines and Tubes: None Lungs: Clear Pleura: No effusion. No pneumothorax. Cardiomediastinal contours: Unremarkable Bones: Unremarkable IMPRESSION: 1. No acute disease. ATED BY: SHANIQUE RAMOS MD DICTATED DATE/TIME: 12/20/241451 SIGNED BY: SHANIQUE RAMOS MD SIGNED DATE/TIME: 12/20/241451 Time of 1ST Reevaluation: 14:47 Reevaluation 1ST: Unchanged Patient Education/Counseling: Diagnosis, Treatment Family Education/Counseling: Diagnosis, Treatment Comments MDM: patient presented with the above HPI.-cardiac-----workup was initiated. patient was found with the above mentioned diagnosis. the following medications were ordered: please refer to order lists of meds and tests obtained by myself Dr. Alva. Patient ED course and VS have been stabilized. Patient has been reassessed in the ED and remained in a stable condition. Pertinent incidental findings were discussed with the patient and/or family. Patient/family voices understanding and is agreeable with plan. Patient has been observed in the ED adequate length of time to insure improvement/stability. Escalation of care considered: Consideration of escalation to observation or admission Patient was ADMITTED to the medicine team for further evaluation and treatment of their presentation. All the reports of any imaging studies that were ordered by myself were reviewed by myself. Departure 1 Departure Time of Disposition: 15:04 Impression: Primary Impression: Chest pain Additional Impressions: Dyspnea CHF exacerbation Disposition: 09 ADMITTED INPATIENT Admit to: Tele Condition: Guarded Discharged With: Self Critical Care Note Critical Care Time?: Yes (45 min-critical care time only) Heart Score Heart Score: Heart Score Response (Comments) Value History Moderate Suspicious 1 EKG Normal 0 Age >65 2 Risk Factors >3 or Hx ASHD 2 Troponin Normal limit 0 Total 5 I personally scribed for TERRENCE ALVA DO ([email or web address]) on 12/20/24 at 14:28. Electronically submitted by Delgado Phan ([email or web address]). I personally scribed for TERRENCE ALVA DO ([email or web address]) on 12/20/24 at 16:17. Electronically submitted by Delgado Phan ([email or web address]). TERRENCE ALVA DO Dec 20, 2024 14:28
--- NOTE | 2024-12-20 14:55 | DVH ---
CHEST RADIOGRAPH Indication: cp Technique: Single frontal view of the chest was obtained COMPARISON: XY CHEST PORTABLE on DOS: 11/06/24, XY CHEST PORTABLE on DOS: 09/02/24, XY CHEST PORTABLE o n DOS: 08/31/24, XY CHEST PORTABLE on DOS: 07/30/24, XY CHEST PORTABLE on DOS: 07/24/24 FINDINGS: Lines and Tubes: None Lungs: Clear Pleura: No effusion. No pneumothorax. Cardiomediastinal contours: Unremarkable Bones: Unremarkable IMPRESSION: 1. No acute disease.
[2024-12-20 14:58] LABS: Hematocrit 49.7 % (41.0-53.0); Hemoglobin 16.5 g/dL (13.5-17.5); Mean Corpuscular Hemoglobin 29.9 pg (28.0-32.0); Mean Corpuscular Volume 89.9 fL (80.0-100.0)
[2024-12-20 15:16] LABS: Alanine Aminotransferase 39 U/L (7-40); Albumin 4.0 g/dL (3.2-4.8); Alkaline Phosphatase 79 U/L (46-116); Anion Gap 7 (5-15); BUN/Creatinine Ratio 15.2 (10.0-20.0); Bilirubin, Total 0.4 mg/dL (0.2-1.0); Calcium 8.8 mg/dL (8.7-10.4); Carbon Dioxide 30 mmol/L (20-31); Glucose 100 mg/dL (74-106); Potassium 3.9 mmol/L (3.5-5.1); Sodium 145 mmol/L (136-145); Total Protein 6.1 g/dL (5.7-8.2)
[2024-12-20 15:20] LABS: Blood Urea Nitrogen 26 mg/dL (9-23); Chloride 108 mmol/L (98-107)
--- NOTE | 2024-12-20 15:21 | ECG ---
[facility] Test Date: 2024-12-20 Test Time: 14:09:06 Pat Name: XIAO HERNANDEZ Department: [facility] ED Patient ID: [id number] Room: 0223T Gender: M [employer]: afshin : 1960 Requested By: SIMONA JUAREZ Order Number: [id number] Reading MD: Ector Jeffers Measurements Intervals Platter Rate: 71 P: 41 [place]: 179 QRS: -55 QRSD: 129 T: 153 QT: 428 QTc: 466 Interpretive Statements Sinus rhythm Left bundle branch block Electronically Signed On 12-26-2024 22:32:41 PDT by Ector Jeffers Please click the below link to view image of tracing.
[2024-12-20] MEDS ORDERED: DEXTROSE (50%) 50ML SYRG IV PRN (15:45)
[2024-12-20] MEDS ORDERED: ACETAMINOPHEN 325 MG TAB PO PRN (15:45)
[2024-12-20] MEDS ORDERED: DOCUSATE SOD 100 MG CAP PO PRN (15:45)
[2024-12-20 15:54] VITALS: BP 101/57; PULSE 68; RESP 16; TEMP 97.7; O2SAT 94
[2024-12-20 16:10] LABS: Total Cells Counted 100.0 (100)
[2024-12-20] MEDS ORDERED: MORPHINE SULFATE INJ 2 MG/ml SYRG IV PRN (17:00)
--- NOTE | 2024-12-20 17:00 | DVHHP2 ---
History of Present Illness Reason for Visit: Acute chest pain History of Present Illness The patient is a 64 years old female with multiple past medical history including anxiety, CHF, COPD, DM, OH, and hypothyroidism who presented to [facility] ED with complaint of chest pain. Patient reports he had a his pacemaker box change jaws before November 11, 2024 and since then he has been experiencing intermittent chest pain associated with shortness of breaths at night. Patient mentions that he originally had the pacemaker placed because "Dr. Montalvo who told him "I have a bad heart". Patient reports that the surgery took place at [facility]. Patient was seen and evaluated in the ED, laboratory data shows WBC 8.5, platelets 209, sodium 145, potassium 3.9, BUN 26, creatinine 1.71, glucose 100, calcium 8.8, BNP 1316.41, troponin 32, blood pressure 101/57, heart rate 66, temperature 97.7 F, O2 saturation 94% on oxygen. Chest x-ray show no acute disease. Please see medication orders section in the computer. On my assessment, patient denied chest pain, no headache, no dizziness, currently on oxygen, no abdominal pain, no nausea, no vomiting, no fever, no chills. Patient was admitted for further evaluation and medical management. Past Medical History Anxiety, CAD, CHF, CKF, COPD, Depression, DM, GERD, HLD, HTN, OH, Thyroid Disease Past Surgical History Pacemaker Family History Reviewed, noncontributory to the management of this case. Past Social History The patient lives at home, denies smoking, alcohol or illicit drugs abuse. Review of Systems Constitutional: Yes: Weakness; No: Fever, Chills, Sweats, Malaise, Other Eyes: No: Pain, Vision change, Conjunctivae inflammation, Eyelid inflammation, Other, Redness ENT: No: Ear pain, Ear discharge, Nose pain, Nose discharge, Nose congestion, Mouth pain, Mouth swelling, Throat pain, Throat swelling, Other Respiratory: No: Cough, Dry, Shortness of breath, SOB with excertion, Wheezing, Hemoptysis, Pleuritic Pain, Sputum, Wheezing, Other Cardiovascular: Chest Pain; No: Palpitations, Orthopnea, Paroxysmal Noc. Dyspnea, Edema, Lt Headedness, Other Gastrointestinal: No: Nausea, Vomiting, Abdominal Pain, Diarrhea, Constipation, Melena, Hematochezia, Other Genitourinary: No Dysuria, No Frequency, No Incontinence, No Hematuria, No Retention, No Other Musculoskeletal: No: other, neck pain, shoulder pain, arm pain, back pain, hand pain, leg pain, foot pain Skin: No: Rash, Lesions, Jaundice, Bruising, Other Neurological: No: Weakness, Numbness, Incoordination, Change in speech, Confusion, Seizures, Other Allergies: Coded Allergies: Empagliflozin (Verified Allergy, Severe, 07/24/24) Morphine (Unverified Allergy, Unknown, 04/18/22) SEVERE BRADYCARDIA Sulfamethoxazole w/Trimethoprim (Verified Allergy, Unknown, 11/06/24) Medications Current Medications Medications Dose Ordered Sig/Manuel Route Start Time Stop Time Status Last Admin Dose Admin Aspirin 81 mg DAILY PO 12/21/24 10:00 Carvedilol 3.125 mg Q12HR PO 12/20/24 22:00 Furosemide 40 mg DAILY IV 12/21/24 10:00 Levothyroxine Sodium 137 mcg QAM@0600 PO 12/21/24 06:00 Tamsulosin HCl 0.4 mg QPM PO 12/20/24 18:00 Famotidine 20 mg DAILY IV 12/21/24 10:00 Albuterol 2.5 mg Q4HPRN PRN NEB 12/20/24 15:45 Diagnostic Test (Pha) 1 strip ACHS 12/20/24 17:00 Insulin Human Regular ACHS SC 12/20/24 17:00 Dextrose 50 ml UD PRN IV 12/20/24 15:45 Sodium Chloride 10 ml Q8HR IV 12/20/24 22:00 Acetaminophen/ Hydrocodone Bitart 1 tab Q4HP PRN PO 12/20/24 15:45 Ondansetron HCl 4 mg Q4HP PRN IV 12/20/24 15:45 Docusate Sodium 100 mg BIDPRN PRN PO 12/20/24 15:45 Acetaminophen 650 mg Q6HP PRN PO 12/20/24 15:45 Exam Vital Signs Vital Signs Date Time Temp Pulse Resp B/P (MAP) Pulse Ox O2 Delivery O2 Flow Rate FiO2 12/20/24 15:54 97.7 68 16 101/57 94 0.0 21 97.7 General Appearance: Alert, Oriented X3, Cooperative, No acute distress HEENT: Atraumatic, PERRLA, EOMI, Mucous membr. moist/pink Respiratory: Normal air movement Cardiovascular: Regular rate, Normal S1, Normal S2, No murmurs Abdominal: Normal bowel sounds, Soft, No tenderness, No hepatospenomegaly, No masses Extremities: No clubbing, No cyanosis, No edema, Normal pulses, No tenderness/swelling Skin: No rashes, No breakdown, No significant lesion Neuro: Normal speech, Normal tone, Sensation intact, Cranial nerves 3-12 NL, Reflexes 2+, Other (Generalized weakness) Psych/Mental Status: Mental status NL, Mood NL Labs/Xrays Labs Test 12/20/24 16:06 12/20/24 14:44 Range/Units Troponin I High Sensitivity 32 </=54 ng/L White Blood Count 8.5 4.4-10.8 10^3/uL Red Blood Count 5.54 4.5-5.90 10^6/uL Hemoglobin 16.5 13.5-17.5 g/dL Hematocrit 49.7 41.0-53.0 % Mean Corpuscular Volume 89.9 80.0-100.0 fL Mean Corpuscular Hemoglobin 29.9 28.0-32.0 pg Mean Corpuscular Hemoglobin Concent 33.3 32.0-36.0 g/dL Red Cell Distribution Width 15.7 H 11.8-14.3 % Platelet Count 209 140-450 10^3/uL Mean Platelet Volume 8.8 6.9-10.8 fL Neutrophils (%) (Auto) 37.0-80.0 % Lymphocytes (%) (Auto) 10.0-50.0 % Monocytes (%) (Auto) 0.0-12.0 % Eosinophils (%) (Auto) 0.0-7.0 % Basophils (%) (Auto) 0.0-2.0 % Neutrophils # (Auto) 1.6-8.6 10 ^3/uL Lymphocytes # (Auto) 0.4-5.4 10 ^3/uL Monocytes # (Auto) 0-1.3 10 ^3/uL Differential Total Cells Counted 100.0 100 Neutrophils % (Manual) 55 37.0-80.0 Band Neutrophils % (Manual) 1 Lymphocytes % (Manual) 20 10.0-50.0 Monocytes % (Manual) 6 0-12 Eosinophils % (Manual) 18 H 0-7 Basophils % (Manual) 0 0.0-2.0 Metamyelocytes % (manual) 0 Myelocytes % (Manual) 0 Promyelocytes % (Manual) 0 Blast Cells % (Manual) 0 Reactive Lymphocytes 0 Platelet Estimate Adequate Sodium Level 145 136-145 mmol/L Potassium Level 3.9 3.5-5.1 mmol/L Chloride Level 108 H 98-107 mmol/L Carbon Dioxide Level 30 20-31 mmol/L Anion Gap 7 5-15 Blood Urea Nitrogen 26 H 9-23 mg/dL Creatinine 1.71 H 0.700-1.30 mg/dL Glomerular Filtration Rate Calc 44 >90 mL/min BUN/Creatinine Ratio 15.2 10.0-20.0 Serum Glucose 100 74-106 mg/dL Calcium Level 8.8 8.7-10.4 mg/dL Total Bilirubin 0.4 0.2-1.0 mg/dL Aspartate Amino Transferase (AST) 24 13-40 U/L Alanine Aminotransferase (ALT) 39 7-40 U/L Alkaline Phosphatase 79 46-116 U/L B-Type Natriuretic Peptide 1316.41 0-100 pg/mL Total Protein 6.1 5.7-8.2 g/dL Albumin 4.0 3.2-4.8 g/dL Thyroid Stimulating Hormone (TSH) 0.74 0.55-4.78 uIU/mL PATIENT: XIAO HERNANDEZ ACCT: [id number] UNIT: [id number] : 1960 LOC: ER ROOM / BED: / AGE / SEX: 64 / M ADM STATUS: REG ER SERVICE 1429 ORDERING PHYSICIAN: TERRENCE ALVA DO PROCEDURE(s): CXRP - CHEST PORTABLE REASON: cp ORDER NUMBER(s): [id number], ACCESSION NUMBER(s): [id number] CHEST RADIOGRAPH Indication: cp Technique: Single frontal view of the chest was obtained COMPARISON: XY CHEST PORTABLE on DOS: 11/06/24, XY CHEST PORTABLE on DOS: 09/02/24, XY CHEST PORTABLE on DOS: 08/31/24, XY CHEST PORTABLE on DOS: 07/30/24, XY CHEST PORTABLE on DOS: 07/24/24 FINDINGS: Lines and Tubes: None Lungs: Clear Pleura: No effusion. No pneumothorax. Cardiomediastinal contours: Unremarkable Bones: Unremarkable IMPRESSION: 1. No acute disease. SEPSIS Sepsis Screen Date sepsis recognized/suspect: Dec 20, 2024 Time Sepsis recognized/suspect: 1409 Recent Procedure: No On Antibiotic Therapy: No Respiratory Rate >20: No Heart Rate >90: No Temp<36 C (96.8 F) or >38.3 C: No SBP <90 or MAP <65 mmHG: No New Acute Mental Status Change: No Is the patient on CPAP, BIPAP,: No Physician Orders Troponin-I Hs (12/20/24 17:10) Electrocardigram (12/20/24 15:10) Electrocardigram (12/20/24 17:10) Word Processor (12/20/24 ) Chest Portable (12/20/24 14:29) Aspirin Tablet (12/21/24 10:00) Carvedilol Tablet (Coreg Tablet) (12/20/24 22:00) Furosemide Injection (Lasix Injection) (12/21/24 10:00) Levothyroxine Tablet (Synthroid Tablet) (12/21/24 06:00) Tamsulosin Hydrochloride (Flomax) (12/20/24 18:00) Famotidine Injection (Pepcid Injection) (12/21/24 10:00) Consistent Carb(Ccho)Diabetes (12/20/24 Dinner) Albuterol Medneb (Ventolin Medneb) (12/20/24 15:45) Glucose Blood (Accu-Chek Comfort Curve T (12/20/24 17:00) Insulin R (Human) (Insulin R) (12/20/24 17:00) Dextrose 50% Syringe (12/20/24 15:45) Allergies (12/20/24 15:34) Code Status (12/20/24 15:34) Sodium Chloride Lock (Saline Lock Ns) (12/20/24 22:00) Oxygen Per Hour (12/20/24 15:34) Hydrocodone-Acet 5/325mg Tab (Belk 5/32 (12/20/24 15:45) Ondansetron Hcl (Zofran) (12/20/24 15:45) Docusate Sodium Capsule (Colace Capsule) (12/20/24 15:45) Complete Blood Count (12/21/24 04:00) Comprehensive Metabolic Panel (12/21/24 04:00) Echo 2d Mode Cardiac Dop (12/20/24 15:34) Condition: Serious (12/20/24 15:34) Acetaminophen Tablet (Tylenol Tablet) (12/20/24 15:45) Bedrest With Bathroom Privileg (12/20/24 15:34) Sequential Compression Device (12/20/24 ) Vital Signs Date Time Temp Pulse Resp B/P (MAP) Pulse Ox O2 Delivery O2 Flow Rate FiO2 12/20/24 15:54 97.7 68 16 101/57 94 0.0 21 97.7 12/20/24 14:10 97.7 67 13 101/57 94 97.7 12/20/24 14:09 71 Laboratory Tests Test 12/20/24 14:44 White Blood Count 8.5 10^3/uL (4.4-10.8) Assessment/Plan Assessment/Plan Acute chest pain Acute renal injury Acute exacerbation of congestive heart failure Generalized weakness Plan 1. Admit to telemetry unit 2. Breathing treatment 3. Pain control management 4. Management of fluids and electrolytes 5. Consultation for Cardiology 6. Diagnostic tests chest x-ray 7. DVT prophylaxis-on aspirin 8. Repeat labs CBC, CMP in a.m. 9. Continue with current medical management 10. Treatment plan discussed with patient and RN. Patient verbalized understanding. Plan discussed with: Patient, Other (RN) My Orders Orders - DARCY PERAZA DNP Procedure Category Date Status Time Aspirin Tablet PHA 12/21/24 In Process 10:00 Carvedilol Tablet PHA 12/20/24 In Process (Coreg Tablet) 22:00 Furosemide Injection PHA 12/21/24 In Process (Lasix Injection) 10:00 Levothyroxine Tablet PHA 12/21/24 In Process (Synthroid Tablet) 06:00 Tamsulosin PHA 12/20/24 In Process Hydrochloride (Flomax) 18:00 Famotidine Injection PHA 12/21/24 In Process (Pepcid Injection) 10:00 Consistent DIET 12/20/24 Transmitted Carb(Ccho)Diabetes Dinner Albuterol Medneb PHA 12/20/24 In Process (Ventolin Medneb) 15:45 Glucose Blood PHA 12/20/24 In Process (Accu-Chek Comfort 17:00 Insulin R (Human) PHA 12/20/24 In Process (Insulin R) 17:00 Dextrose 50% Syringe PHA 12/20/24 In Process 15:45 Allergies TERRI 12/20/24 In Process 15:34 Code Status CODE 12/20/24 Transmitted 15:34 Sodium Chloride Lock PHA 12/20/24 In Process (Saline Lock Ns) 22:00 Oxygen Per Hour RT 12/20/24 Transmitted 15:34 Hydrocodone-Acet PHA 12/20/24 In Process 5/325mg Tab (Belk 15:45 Ondansetron Hcl PHA 12/20/24 In Process (Zofran) 15:45 Docusate Sodium PHA 12/20/24 In Process Capsule (Colace 15:45 Complete Blood Count LAB 12/21/24 Verified 04:00 Comprehensive LAB 12/21/24 Verified Metabolic Panel 04:00 Echo 2d Mode Cardiac US 12/20/24 Logged DOP 15:34 Condition: Serious TERRI 12/20/24 In Process 15:34 Acetaminophen Tablet PHA 12/20/24 In Process (Tylenol Tablet) 15:45 Bedrest With Bathroom TERRI 12/20/24 In Process Privileg 15:34 Sequential TERRI 12/20/24 In Process Compression Device Problem List: (1) Acute chest pain (2) Acute renal injury (3) Acute exacerbation of congestive heart failure (4) Generalized weakness Date of Service: Dec 20, 2024 Billing Provider: DARCY PERAZA DNP Common Visit Codes: [id number] INP/OBS CARE (HIGH) DARCY PERAZA DNP Dec 20, 2024 17:00
[2024-12-20] MEDS: InsuLIN REG 1unit/0.01ml Soln (100units/ml) SC SCH (17:41)
[2024-12-20] MEDS: ACCU-CHEK COMFORT CURVE STRIP VI SCH (17:41)
[2024-12-20 17:43] VITALS: PULSE 77; RESP 18; O2SAT 96
[2024-12-20] MEDS: FUROSEMIDE 20 MG/2 ML VIAL IV ONE (17:50)
[2024-12-20] MEDS: TAMSULOSIN HYDROCHLORIDE 0.4 MG CAP PO SCH (18:10)
[2024-12-20 20:10] VITALS: BP 113/74; PULSE 82; RESP 19; TEMP 98.3; O2SAT 95
[2024-12-20 20:24] VITALS: PULSE 82; RESP 19; O2SAT 95
[2024-12-20 21:14] VITALS: O2SAT 97
[2024-12-20] MEDS: HYDROcodone-ACET 5/325MG TAB PO PRN (21:14)
[2024-12-20] MEDS: SODIUM CHLOR 0.9% PF (SALINE LOCK) 10ML VIAL/SYR IV SCH (21:15)
[2024-12-20] MEDS: CARVEDILOL 3.125 MG TAB PO SCH (21:22)
[2024-12-21] VITALS (13 sets, daily range): BP systolic 97–117; BP diastolic 72–88; PULSE 56–103; RESP 17–20; TEMP 97.6–98.9; O2SAT 92–99
[2024-12-21] MEDS: ALBUTEROL SULF 2.5 MG/0.5ML(0.5%) NEB SOLN NEB PRN (03:02)
[2024-12-21 06:07] LABS: Hematocrit 48.9 % (41.0-53.0); Hemoglobin 16.2 g/dL (13.5-17.5); Mean Corpuscular Hemoglobin 29.9 pg (28.0-32.0); Mean Corpuscular Volume 90.1 fL (80.0-100.0)
[2024-12-21 06:26] LABS: Alanine Aminotransferase 34 U/L (7-40); Albumin 3.8 g/dL (3.2-4.8); Alkaline Phosphatase 72 U/L (46-116); Anion Gap 11 (5-15); BUN/Creatinine Ratio 18.2 (10.0-20.0); Bilirubin, Total 0.4 mg/dL (0.2-1.0); Carbon Dioxide 25 mmol/L (20-31); Chloride 105 mmol/L (98-107); Glucose 90 mg/dL (74-106); Potassium 3.8 mmol/L (3.5-5.1); Sodium 141 mmol/L (136-145); Total Protein 5.9 g/dL (5.7-8.2)
[2024-12-21] MEDS: LEVOTHYROXINE SODIUM 25 MCG TAB PO SCH (06:26)
[2024-12-21 06:32] LABS: Blood Urea Nitrogen 33 mg/dL (9-23); Calcium 8.6 mg/dL (8.7-10.4)
[2024-12-21] MEDS: FUROSEMIDE 40 MG/4 ML VIAL IV SCH ×2 (09:14→18:07)
[2024-12-21] MEDS: FAMOTIDINE (10MG/ML) 2ML VL IV SCH (09:14)
[2024-12-21 10:18] LABS: Total Cells Counted 100.0 (100)
--- NOTE | 2024-12-21 13:43 | DVHPN2 ---
Changes from previous H/P or p: No Changes Eyes: No Pain, No Vision change, No Conjunctivae inflammation, No Eyelid inflammation, No Other, No Redness ENT: No Ear pain, No Ear discharge, No Nose pain, No Nose discharge, No Nose congestion, No Mouth pain, No Mouth swelling, No Throat pain, No Throat swelling, No Other Cardiovascular: Chest Pain; No Palpitations, No Orthopnea, No Paroxysmal Noc. Dyspnea, No Edema, No Lt Headedness, No Other Respiratory: No Cough, No Dry, No Shortness of breath, No SOB with excertion, No Wheezing, No Hemoptysis, No Pleuritic Pain, No Sputum, No Other Gastrointestinal: No Nausea, No Vomiting, No Abdominal Pain, No Diarrhea, No Constipation, No Melena, No Hematochezia, No Other Genitourinary: No Dysuria, No Frequency, No Incontinence, No Hematuria, No Retention, No Other Musculoskeletal: No other, No neck pain, No shoulder pain, No arm pain, No back pain, No hand pain, No leg pain, No foot pain Skin: No Rash, No Lesions, No Jaundice, No Bruising, No Other Objective Vitals Vital Signs Date Time Temp Pulse Resp B/P (MAP) Pulse Ox O2 Delivery O2 Flow Rate FiO2 12/21/24 10:00 97 Room Air 0.0 12/21/24 10:00 21 12/21/24 09:14 108/75 12/21/24 09:13 87 12/21/24 09:00 98.9 20 98.9 Intake/Output Intake and Output 12/21/24 06:59 Intake Total 420 ml Output Total 500 ml Balance -80 ml Intake Oral 420 ml Output Urine Total 500 ml Medications Current Medications Medications Dose Ordered Sig/Manuel Route Start Time Stop Time Status Last Admin Dose Admin Aspirin 81 mg DAILY PO 12/21/24 10:00 12/21/24 09:13 81 MG Carvedilol 3.125 mg Q12HR PO 12/20/24 22:00 12/21/24 09:13 3.125 MG Furosemide 40 mg DAILY IV 12/21/24 10:00 12/21/24 09:14 40 MG Levothyroxine Sodium 137 mcg QAM@0600 PO 12/21/24 06:00 12/21/24 06:26 137 MCG Tamsulosin HCl 0.4 mg QPM PO 12/20/24 18:00 12/20/24 18:10 0.4 MG Famotidine 20 mg DAILY IV 12/21/24 10:00 12/21/24 09:14 20 MG Albuterol 2.5 mg Q4HPRN PRN NEB 12/20/24 15:45 12/21/24 03:02 2.5 MG Diagnostic Test (Pha) 1 strip ACHS 12/20/24 17:00 12/21/24 06:26 1 STRIP Insulin Human Regular ACHS SC 12/20/24 17:00 Dextrose 50 ml UD PRN IV 12/20/24 15:45 Sodium Chloride 10 ml Q8HR IV 12/20/24 22:00 12/21/24 06:14 10 ML Acetaminophen/ Hydrocodone Bitart 1 tab Q4HP PRN PO 12/20/24 15:45 12/20/24 21:14 1 TAB Ondansetron HCl 4 mg Q4HP PRN IV 12/20/24 15:45 Docusate Sodium 100 mg BIDPRN PRN PO 12/20/24 15:45 Acetaminophen 650 mg Q6HP PRN PO 12/20/24 15:45 Nitroglycerin 0.4 mg Q5MINP PRN SL 12/20/24 17:00 Morphine Sulfate 2 mg Q30M PRN IV 12/20/24 17:00 Hold Laboratory Results Laboratory Tests 12/21/24 04:00 12/21/24 04:50 Chemistry Test 12/20/24 14:44 12/21/24 04:50 Albumin 4.0 g/dL (3.2-4.8) 3.8 g/dL (3.2-4.8) Calcium Level 8.8 mg/dL (8.7-10.4) 8.6 mg/dL (8.7-10.4) L Total Protein 6.1 g/dL (5.7-8.2) 5.9 g/dL (5.7-8.2) Cardiac Markers Test 12/20/24 14:44 B-Type Natriuretic Peptide 1316.41 pg/mL (0-100) LFT Test 12/20/24 14:44 12/21/24 04:50 Alanine Aminotransferase (ALT) 39 U/L (7-40) 34 U/L (7-40) Alkaline Phosphatase 79 U/L (46-116) 72 U/L (46-116) Aspartate Amino Transferase (AST) 24 U/L (13-40) 26 U/L (13-40) Total Bilirubin 0.4 mg/dL (0.2-1.0) 0.4 mg/dL (0.2-1.0) HgA1c, TSH Test 12/20/24 14:44 Thyroid Stimulating Hormone (TSH) 0.74 uIU/mL (0.55-4.78) Labs and/or images reviewed: Labs reviewed by me, Image(s) reviewed by me Assessment/Plan Assessment/Plan Acute chest pain rule out coronary artery disease consult for Cardiology History of coronary artery disease Status post pacemaker Acute CHF exacerbation CKD three COPD Depression Diabetes GERD Hypertension Hypercholesterolemia History of [place] Hypothyroidism Time spent 70 minutes Advanced care planning time 20 minutes Patient is full code Poor prognosis Plan discussed with: Patient Date of Service: Dec 21, 2024 Billing Provider: EUN LI MD Common Visit Codes: [id number] CARE 30-74 MIN EUN LI MD Dec 21, 2024 13:43
--- NOTE | 2024-12-21 15:37 | DVHINCON2 ---
Date Seen: Dec 21, 2024 Referring Physician MD Randy Reason for Consultation Chest pain with multiple cardiac risk factors History of Present Illness This is a 64-year-old male patient who presents to emergency room with chief complaint of chest pain. The patient reports that the chest pain has been going on for approximately two days. He describes it as unprovoked, constant, pressure-like in nature, substernal and nonradiating. Associated symptoms include shortness of breath. Initial twelve lead electrocardiogram reveals normal sinus rhythm with left bundle branch block (as seen on previous EKGs from previous visits). Initial troponin level of 32ng/L with flat trend thereafter. Significant past medical history includes congestive heart failure, nonischemic cardiomyopathy, presence of ICD (Biotronik), and previous history of drug use and tobacco use. 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 He does also admit to recent dietary indiscretions. Initial BNP level of 1316.41pg/mL. Past Medical History Past medical history reviewed. No other significant than mentioned above. Past Surgical History Presence of ICD (Biotronik) Family History: Alcoholism FH: arrhythmia G8 MOTHER FH: breast cancer G8 SISTER, , Cause: [place] (myocardial infarction) FH: diabetes mellitus FH: heart attack G8 FATHER, , Cause: [place] (myocardial infarction) G8 BROTHER, , Cause: [place] (myocardial infarction) Family history: Cardiovascular disease G8 FATHER, , Cause: [place] (myocardial infarction), Onset:40's - 50 Family history: Diabetes mellitus G8 MOTHER, Onset:40's - 50 G8 FATHER, , Cause: [place] (myocardial infarction) G8 SISTER, , Cause: [place] (myocardial infarction) Sister Family History Family history reviewed. Social History Admits to previous drug abuse Has a 50 pack-year history, quit smoking 30 days ago Previous alcohol abuse, quit approximately 30 days ago Allergies: Coded Allergies: Empagliflozin (Verified Allergy, Severe, 07/24/24) Morphine (Unverified Allergy, Unknown, 04/18/22) SEVERE BRADYCARDIA Sulfamethoxazole w/Trimethoprim (Verified Allergy, Unknown, 11/06/24) Home Meds Active Scripts Prednisone (Prednisone) 20 Mg Tab, 20 MG PO DAILY for 5 Days, #5 MG Prov:MANJULA LAN NP 09/05/24 Doxycycline (Monohydrate) (Doxycycline) 100 Mg Cap, 100 MG PO BID for 7 Days, #14 CAP Prov:MANJULA LAN [employer]AY D[employer]ER OPERATOR HELPER 09/05/24 Clonazepam (Clonazepam) 0.5 Mg Tab, 1 TAB PO BID for 30 Days, #60 TAB Prov:MANJULA LAN [employer]AY DRIER OPERATOR HELPER 09/05/24 Metoprolol Tartrate (Metoprolol Tartrate) 25 Mg Tab, 0.5 TAB PO BID for 30 Days, #30 TAB 1 Refill Prov:MANJULA LAN [employer] DRI[employer] OPERATOR HELPER 07/26/24 Aspirin (Aspirin Low Dose) 81 Mg Tab, 81 MG PO DAILY for 30 Days, #30 TAB Prov:MANJULA LAN SPRAY DRIER OPERATOR HELPER 07/12/24 Potassium Chloride (Potassium Chloride ER) 10 Meq Tab, 10 MEQ PO BID for 30 Days, #60 TAB Prov:MANJULA LAN SPRAY DRIER OPERATOR HELPER 07/11/24 Furosemide (Lasix) 40 Mg Tab, 40 MG PO BID for 30 Days, #60 TAB Prov:MANJULA LAN [employer] DRI[employer] OPERATOR HELPER 07/11/24 Sacubitril-Valsartan (Entresto 24-26 mg) 1 Tab Tab, 1 TAB PO BID, #180 TAB Prov:EUN LI MD 09/16/23 Reported Medications Levothyroxine Sodium (Levothyroxine Sodium) 137 Mcg Tab, 1 TAB PO DAILY for 70 Days, #70 07/25/24 Albuterol Sulfate (Albuterol Sulfate Hfa) 108 Mcg/Act Aer 07/09/24 Tamsulosin Hcl (Tamsulosin Hcl) 0.4 Mg Cap, 0.8 MG PO DAILY AFTER MEAL, MG 09/14/23 Home Meds Home medications reviewed. Current Medications Current Medications Medications (Trade) Dose Ordered Sig/Manuel Route PRN Reason Start Time Stop Time Status Last Admin Aspirin 81 mg DAILY PO 12/21/24 10:00 12/21/24 09:13 Carvedilol (Coreg Tablet) 3.125 mg Q12HR PO 12/20/24 22:00 12/21/24 09:13 Furosemide (Lasix Injection) 40 mg DAILY IV 12/21/24 10:00 12/21/24 14:00 DC 12/21/24 09:14 Levothyroxine Sodium (Synthroid Tablet) 137 mcg QAM@0600 PO 12/21/24 06:00 12/21/24 06:26 Tamsulosin HCl (Flomax) 0.4 mg QPM PO 12/20/24 18:00 12/20/24 18:10 Famotidine (Pepcid Injection) 20 mg DAILY IV 12/21/24 10:00 12/21/24 09:14 Albuterol (Ventolin Medneb) 2.5 mg Q4HPRN PRN NEB SHORTNESS OF BREATH 12/20/24 15:45 12/21/24 03:02 Diagnostic Test (Pha) (Accu-Chek Comfort Curve T) 1 strip ACHS 12/20/24 17:00 12/21/24 06:26 Insulin Human Regular (InsuLIN R) ACHS SC 12/20/24 17:00 Dextrose 50 ml UD PRN IV Blood Sugar LESS THAN 60 12/20/24 15:45 Sodium Chloride (Saline Lock Ns) 10 ml Q8HR IV 12/20/24 22:00 12/21/24 14:00 Acetaminophen/ Hydrocodone Bitart ([place] 5/325MG Tab) 1 tab Q4HP PRN PO MODERATE PAIN (4-6 PAIN SCALE) 12/20/24 15:45 12/20/24 21:14 Ondansetron HCl (Zofran) 4 mg Q4HP PRN IV NAUSEA / VOMITING 12/20/24 15:45 Docusate Sodium (Colace Capsule) 100 mg BIDPRN PRN PO FOR CONSTIPATION 12/20/24 15:45 Acetaminophen (Tylenol Tablet) 650 mg Q6HP PRN PO PAIN SCALE 1-3 OR TEMP>100.4 12/20/24 15:45 Nitroglycerin (Ntrostat Sublingual) 0.4 mg Q5MINP PRN SL FOR CHEST PAIN 12/20/24 17:00 Morphine Sulfate 2 mg Q30M PRN IV FOR CHEST PAIN 12/20/24 17:00 Hold Furosemide (Lasix Injection) 40 mg BIDD IV 12/21/24 18:00 Review of Systems Constitutional: No symptom reported Ears, Nose, & Throat: No symptom reported Eyes: No symptom reported Neurological: No symptoms reported Pulmonary/Respiratory: Shortness of breath Cardiovascular: Chest pain Gastrointestinal: No symptom reported Genitourinary: No symptom reported Musculoskeletal: No symptom reported Skin: No symptom reported Psychiatric: No symptom reported Endocrine: No symptom reported Hematologic/Lymphatic: No symptom reported Vital Signs Vital Signs Date Time Temp Pulse Resp B/P (MAP) Pulse Ox O2 Delivery O2 Flow Rate FiO2 12/21/24 13:00 97.7 56 19 97/72 (80) 95 97.7 12/21/24 10:00 Room Air 0.0 12/21/24 10:00 21 Physical Exam General Appearance: Cooperative. Well-developed. Well-nourished. No acute distress. Pulmonary/Respiratory: Clear, bilateral breaths sounds. Cardiovascular/Chest: Regular rate and rhythm. Peripheral Pulses: 2+ Radial (R). 2+ Radial (L). 2+ Pedal (R). 2+ Pedal (L) Abdominal Exam: Normal bowel sounds. Ankle Exam: Negative ankle edema Lower extremities: Negative lower extremity edema Neuro/Mental Status: A/OX4, coherent. Thoughts/Psych: Normal thought pattern. Appropriate mood and affect. Good judgment and insight. Appearance: No acute distress. Skin Exam: Normal inspection. Normal color. Warm and dry. Labs/Diagnostic Data Labs Test 12/21/24 06:15 12/21/24 04:50 12/21/24 04:00 12/20/24 18:24 Range/Units POC Glucose 95 70-106 mg/dl Sodium Level 141 136-145 mmol/L Potassium Level 3.8 3.5-5.1 mmol/L Chloride Level 105 98-107 mmol/L Carbon Dioxide Level 25 20-31 mmol/L Anion Gap 11 5-15 Blood Urea Nitrogen 33 H 9-23 mg/dL Creatinine 1.81 H 0.700-1.30 mg/dL Glomerular Filtration Rate Calc 41 >90 mL/min BUN/Creatinine Ratio 18.2 10.0-20.0 Serum Glucose 90 74-106 mg/dL Calcium Level 8.6 L 8.7-10.4 mg/dL Total Bilirubin 0.4 0.2-1.0 mg/dL Aspartate Amino Transferase (AST) 26 13-40 U/L Alanine Aminotransferase (ALT) 34 7-40 U/L Alkaline Phosphatase 72 46-116 U/L Total Protein 5.9 5.7-8.2 g/dL Albumin 3.8 3.2-4.8 g/dL White Blood Count 7.3 4.4-10.8 10^3/uL Red Blood Count 5.43 4.5-5.90 10^6/uL Hemoglobin 16.2 13.5-17.5 g/dL Hematocrit 48.9 41.0-53.0 % Mean Corpuscular Volume 90.1 80.0-100.0 fL Mean Corpuscular Hemoglobin 29.9 28.0-32.0 pg Mean Corpuscular Hemoglobin Concent 33.2 32.0-36.0 g/dL Red Cell Distribution Width 15.3 H 11.8-14.3 % Platelet Count 193 140-450 10^3/uL Mean Platelet Volume 9.0 6.9-10.8 fL Neutrophils (%) (Auto) 37.0-80.0 % Lymphocytes (%) (Auto) 10.0-50.0 % Monocytes (%) (Auto) 0.0-12.0 % Basophils (%) (Auto) 0.0-2.0 % Neutrophils # (Auto) 1.6-8.6 10 ^3/uL Lymphocytes # (Auto) 0.4-5.4 10 ^3/uL Monocytes # (Auto) 0-1.3 10 ^3/uL Differential Total Cells Counted 100.0 100 Neutrophils % (Manual) 45 37.0-80.0 Band Neutrophils % (Manual) 0 Lymphocytes % (Manual) 23 10.0-50.0 Monocytes % (Manual) 5 0-12 Eosinophils % (Manual) 27 H 0-7 Basophils % (Manual) 0 0.0-2.0 Metamyelocytes % (manual) 0 Myelocytes % (Manual) 0 Promyelocytes % (Manual) 0 Blast Cells % (Manual) 0 Reactive Lymphocytes 0 Platelet Estimate Adequate Troponin I High Sensitivity 31 </=54 ng/L Test 12/20/24 14:44 Range/Units Eosinophils (%) (Auto) 0.0-7.0 % B-Type Natriuretic Peptide 1316.41 0-100 pg/mL Thyroid Stimulating Hormone (TSH) 0.74 0.55-4.78 uIU/mL Assessment Acute on chronic decompensated HFrEF, NYHA class III LV thrombus (per preliminary echo findings) Nonischemic cardiomyopathy Presence of ICD (Biotronik) History of polysubstance use Medical noncompliance Plan/Recommendation We will continue with the following plan/recommendations (Dr. Montalvo): Case discussed in full detail with . Preliminary echocardiogram findings significant for LV thrombus. Per guidelines, Coumadin is the choice of treatment for LV thrombus. But given the patient's known medical noncompliance and nonadherence to medication, doubt that patient we will comply with Coumadin clinic and routine follow up. We will initiate the patient on Eliquis therapy, which is used off-label for LV thrombus. Continue with guideline directed medical therapy for CHF as tolerated by renal function. Hold SGLT2i (patient allergic to Jardiance and can only take Farxiga which is not carried in our pharmacy). Initiate ARNI and MRA with improved creatinine level. Continue with strict intake and output, daily weights, and maintain fluid restriction. Aggressive diuresis as tolerated. Continue with preload and afterload reduction. The patient has had a coronary angiogram on 04/21/2022 in which no catheter based intervention was deemed necessary at that time. Patient has a known history of nonischemic cardiomyopathy. Given clinical presentation, un changed twelve lead electrocardiogram (compared to previous visit), and unremarkable troponin level, doubt ACS. Continue with medical management. Thank you for allowing us to care for this patient. Please call with any questions or concerns. Critical care time spent: 44 minutes This medical document was created using an electronic medical record system with voice recognition software and computerized dictation system. Although this document has been carefully reviewed, there might still be some phonetic and typographical errors. Occasional wrong-word or ``sound-alike substitutions may have occurred due to the inherent limitations of voice recognition software. These areas are purely typographical due to imperfections of the software prog yves and do not reflect any compromise in the patient's medical care. Please read the chart carefully and recognize, using context, where these substitutions have occurred. Plan discussed with: Patient NYHA Physical activity limitations: Class3(Marked) ordinary (activity causes symtoms) Date of Service: Dec 21, 2024 Billing Provider: NICHO EVANS Cardiology Common Codes: 44217-[id number] INP/OBS CARE (High) Cardiology Consultation Codes: [id number] CONSULT <45MIN NICHO EVANS Dec 21, 2024 15:37
--- NOTE | 2024-12-21 19:15 | ECG ---
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
[2024-12-21] MEDS ORDERED: APIXABAN 5 MG TAB PO SCH (22:00)
[2024-12-21] MEDS: APIXABAN 5 MG TAB PO SCH (22:34)
[2024-12-22] VITALS (11 sets, daily range): BP systolic 101–138; BP diastolic 68–86; PULSE 56–88; RESP 16–19; TEMP 97.3–98; O2SAT 90–98
[2024-12-22] MEDS: ONDANSETRON HCL 4 MG/2 ML VIAL IV PRN (07:04)
--- NOTE | 2024-12-22 09:34 | DVHPN2 ---
Reviewed: Care Plan, H&P, Labs, Medications, Previous Orders, Radiology Changes from previous H/P or p: No Changes Eyes: No Pain, No Vision change, No Conjunctivae inflammation, No Eyelid inflammation, No Other, No Redness ENT: No Ear pain, No Ear discharge, No Nose pain, No Nose discharge, No Nose congestion, No Mouth pain, No Mouth swelling, No Throat pain, No Throat swelling, No Other Cardiovascular: Chest Pain; No Palpitations, No Orthopnea, No Paroxysmal Noc. Dyspnea, No Edema, No Lt Headedness, No Other Respiratory: No Cough, No Dry, No Shortness of breath, No SOB with excertion, No Wheezing, No Hemoptysis, No Pleuritic Pain, No Sputum, No Other Gastrointestinal: No Nausea, No Vomiting, No Abdominal Pain, No Diarrhea, No Constipation, No Melena, No Hematochezia, No Other Genitourinary: No Dysuria, No Frequency, No Incontinence, No Hematuria, No Retention, No Other Musculoskeletal: No other, No neck pain, No shoulder pain, No arm pain, No back pain, No hand pain, No leg pain, No foot pain Skin: No Rash, No Lesions, No Jaundice, No Bruising, No Other Objective Vitals Vital Signs Date Time Temp Pulse Resp B/P (MAP) Pulse Ox O2 Delivery O2 Flow Rate FiO2 12/22/24 09:18 97.8 61 19 104/68 (80) 90 97.8 12/22/24 08:21 Room Air* 0 21 Intake/Output Intake and Output 12/22/24 07:00 Intake Total 570 ml Balance 570 ml Intake Oral 570 ml # Voids 4 Medications Current Medications Medications Dose Ordered Sig/Manuel Route Start Time Stop Time Status Last Admin Dose Admin Aspirin 81 mg DAILY PO 12/21/24 10:00 12/21/24 09:13 81 MG Carvedilol 3.125 mg Q12HR PO 12/20/24 22:00 12/21/24 21:57 3.125 MG Levothyroxine Sodium 137 mcg QAM@0600 PO 12/21/24 06:00 12/22/24 05:50 137 MCG Tamsulosin HCl 0.4 mg QPM PO 12/20/24 18:00 12/21/24 18:06 0.4 MG Famotidine 20 mg DAILY IV 12/21/24 10:00 12/21/24 09:14 20 MG Albuterol 2.5 mg Q4HPRN PRN NEB 12/20/24 15:45 12/21/24 03:02 2.5 MG Diagnostic Test (Pha) 1 strip ACHS 12/20/24 17:00 12/22/24 06:11 1 STRIP Insulin Human Regular ACHS SC 12/20/24 17:00 Dextrose 50 ml UD PRN IV 12/20/24 15:45 Sodium Chloride 10 ml Q8HR IV 12/20/24 22:00 12/22/24 05:50 10 ML Acetaminophen/ Hydrocodone Bitart 1 tab Q4HP PRN PO 12/20/24 15:45 12/21/24 22:45 1 TAB Ondansetron HCl 4 mg Q4HP PRN IV 12/20/24 15:45 12/22/24 07:04 4 MG Docusate Sodium 100 mg BIDPRN PRN PO 12/20/24 15:45 Acetaminophen 650 mg Q6HP PRN PO 12/20/24 15:45 Nitroglycerin 0.4 mg Q5MINP PRN SL 12/20/24 17:00 Morphine Sulfate 2 mg Q30M PRN IV 12/20/24 17:00 Hold Furosemide 40 mg BIDD IV 12/21/24 18:00 12/22/24 05:53 40 MG Apixaban 10 mg BID PO 12/21/24 22:00 12/28/24 21:59 12/21/24 22:34 10 MG Atorvastatin Calcium 20 mg HS PO 12/22/24 22:00 Laboratory Results Laboratory Tests 12/21/24 04:00 12/21/24 04:50 Labs and/or images reviewed: Labs reviewed by me, Image(s) reviewed by me Assessment/Plan Assessment/Plan Acute chest pain rule out coronary artery disease consult for Cardiology by Dr. Montalvo appreciated History of coronary artery disease Status post pacemaker Acute on chronic decompensated systolic congestive heart failure LV thrombus: Eliquis (Coumadin not started as the patient is noncompliant and can not comply with the Coumadin guidelines) CKD 3 Nonischemic cardiomyopathy COPD Depression Diabetes GERD Hypertension Hypercholesterolemia History of [place] Hypothyroidism Medication noncompliance History of polysubstance Time spent 70 minutes Patient is full code Poor prognosis Plan discussed with: Patient My Orders Orders - EUN LI MD Procedure Category Date Status Time * Cardiology Consult CONS 12/21/24 Transmitted 13:40 Furosemide Injection PHA 12/21/24 In Process (Lasix Injection) 18:00 Date of Service: Dec 22, 2024 Billing Provider: EUN LI MD Common Visit Codes: [id number] CARE 30-74 MIN EUN LI MD Dec 22, 2024 09:34
[2024-12-22] MEDS ORDERED: DAPA1TAB4 PO (10:19)
--- NOTE | 2024-12-22 12:43 | DVHDS2 ---
Discharge Summary Date of Admission Dec 20, 2024 at 16:58 Date of Discharge: Dec 23, 2024 Admitting Diagnosis Shortness of breath Wounds: None Labs/Diagnostic Data: Laboratory Results Test 12/22/24 11:06 12/21/24 04:50 12/21/24 04:00 12/20/24 18:24 POC Glucose 105 mg/dl (70-106) Sodium Level 141 mmol/L (136-145) Potassium Level 3.8 mmol/L (3.5-5.1) Chloride Level 105 mmol/L (98-107) Carbon Dioxide Level 25 mmol/L (20-31) Anion Gap 11 (5-15) Blood Urea Nitrogen 33 mg/dL (9-23) Creatinine 1.81 mg/dL (0.700-1.30) Glomerular Filtration Rate Calc 41 mL/min (>90) BUN/Creatinine Ratio 18.2 (10.0-20.0) Serum Glucose 90 mg/dL (74-106) Calcium Level 8.6 mg/dL (8.7-10.4) Total Bilirubin 0.4 mg/dL (0.2-1.0) Aspartate Amino Transferase (AST) 26 U/L (13-40) Alanine Aminotransferase (ALT) 34 U/L (7-40) Alkaline Phosphatase 72 U/L (46-116) Total Protein 5.9 g/dL (5.7-8.2) Albumin 3.8 g/dL (3.2-4.8) White Blood Count 7.3 10^3/uL (4.4-10.8) Red Blood Count 5.43 10^6/uL (4.5-5.90) Hemoglobin 16.2 g/dL (13.5-17.5) Hematocrit 48.9 % (41.0-53.0) Mean Corpuscular Volume 90.1 fL (80.0-100.0) Mean Corpuscular Hemoglobin 29.9 pg (28.0-32.0) Mean Corpuscular Hemoglobin Concent 33.2 g/dL (32.0-36.0) Red Cell Distribution Width 15.3 % (11.8-14.3) Platelet Count 193 10^3/uL (140-450) Mean Platelet Volume 9.0 fL (6.9-10.8) Neutrophils (%) (Auto) % (37.0-80.0) Lymphocytes (%) (Auto) % (10.0-50.0) Monocytes (%) (Auto) % (0.0-12.0) Basophils (%) (Auto) % (0.0-2.0) Neutrophils # (Auto) 10 ^3/uL (1.6-8.6) Lymphocytes # (Auto) 10 ^3/uL (0.4-5.4) Monocytes # (Auto) 10 ^3/uL (0-1.3) Differential Total Cells Counted 100.0 (100) Neutrophils % (Manual) 45 (37.0-80.0) Band Neutrophils % (Manual) 0 Lymphocytes % (Manual) 23 (10.0-50.0) Monocytes % (Manual) 5 (0-12) Eosinophils % (Manual) 27 (0-7) Basophils % (Manual) 0 (0.0-2.0) Metamyelocytes % (manual) 0 Myelocytes % (Manual) 0 Promyelocytes % (Manual) 0 Blast Cells % (Manual) 0 Reactive Lymphocytes 0 Platelet Estimate Adequate Troponin I High Sensitivity 31 ng/L (</=54) Test 12/20/24 14:44 Eosinophils (%) (Auto) % (0.0-7.0) B-Type Natriuretic Peptide 1316.41 pg/mL (0-100) Thyroid Stimulating Hormone (TSH) 0.74 uIU/mL (0.55-4.78) Other Laboratory Tests 12/21/24 04:50 12/21/24 04:00 Brief Hx & Hospital Course: 64-year-old male with a history of coronary artery disease status post pacemaker acute on chronic systolic congestive heart failure nonischemic cardiomyopathy COPD depression diabetes hypertension GERD hypercholesterolemia AMI hypothyroidism history of polysubstance abuse medication noncompliance came in complaining of chest pain and shortness of breaths. Cardiology consult by Dr. Montalvo. Acute coronary syndrome ruled out patient was found to have LV thrombus by echocardiogram placed on Eliquis. Coumadin not started as the patient is noncompliant and we will not be able to follow up for routine Coumadin checks. The patient being discharged [facility] for medication compliance. Patient agreeable with the patient and his sister at the bedside. General condition stable but poor at the time of discharge Consults/Reason for consult Cardiology Operations or Procedures Echocardiogram Condition at Discharge: Fair Final Diagnosis/Problems List Acute chest pain rule out coronary artery disease consult for Cardiology by Dr. Montalvo appreciated History of coronary artery disease Status post pacemaker Acute on chronic decompensated systolic congestive heart failure LV thrombus: Eliquis (Coumadin not started as the patient is noncompliant and can not comply with the Coumadin guidelines) CKD 3 Nonischemic cardiomyopathy COPD Depression Diabetes GERD Hypertension Hypercholesterolemia History of [place] Hypothyroidism Medication noncompliance History of polysubstance Discharge Disposition: Shelter Facility Discharge Instruct/Medications Diet: Cardiac 2g Na,low cholest Activity: Light activity Follow Up/Referral: Follow up with the senior living Medications: see list Scheduled Aspirin (Aspirin Low Dose), 81 MG PO DAILY Clonazepam (Clonazepam), 1 TAB PO BID Dapagliflozin Propanediol (Farxiga), 10 MG PO DAILY, (Reported) Doxycycline (Monohydrate) (Doxycycline), 100 MG PO BID Furosemide (Lasix), 40 MG PO BID Levothyroxine Sodium (Levothyroxine Sodium), 1 TAB PO DAILY, (Reported) Metoprolol Tartrate (Metoprolol Tartrate), 0.5 TAB PO BID Potassium Chloride (Potassium Chloride ER), 10 MEQ PO BID Prednisone (Prednisone), 20 MG PO DAILY Sacubitril-Valsartan (Entresto 24-26 mg), 1 TAB PO BID Tamsulosin Hcl (Tamsulosin Hcl), 0.8 MG PO DAILY AFTER MEAL, (Reported) Miscellaneous Medications Albuterol Sulfate (Albuterol Sulfate Hfa), (Reported) 39 (Time taken for discharge summary 39 minutes) Discharge Statement: "Patient was advised to return to the ER or call 911 if any headaches, dizziness, shortness of breath, chest pain, abdominal pain, bleeding, fevers, or worsening of medical condition. Patient was counseled about treatment plan, medications, possible side effects, patientverbalized understanding. All questions were answered to the best of my ability. This discharge took greater then 30 minutes in planning, reviewing documentation, counseling the patient, and discussing with other team members." ASSESSMENT ASSESSMENT Hospital Course Uneventful Assessment Acute chest pain rule out coronary artery disease consult for Cardiology by Dr. Montalvo appreciated History of coronary artery disease Status post pacemaker Acute on chronic decompensated systolic congestive heart failure LV thrombus: Eliquis (Coumadin not started as the patient is noncompliant and can not comply with the Coumadin guidelines) CKD 3 Nonischemic cardiomyopathy COPD Depression Diabetes GERD Hypertension Hypercholesterolemia History of [place] Hypothyroidism Medication noncompliance History of polysubstance Date of Service: Dec 22, 2024 Billing Provider: EUN LI MD Common Visit Codes: 59431-DEZ/OBS DISCH DAY >30min EUN LI MD Dec 22, 2024 12:43
--- NOTE | 2024-12-22 13:16 | ECG ---
[facility] Test Date: 2024-12-20 Test Time: 17:14:29 Pat Name: XIAO HERNANDEZ Department: ED Room: 0223T B Gender: M Patient Experience Coordinator: dave : 1960 Requested By: SIMONA JUAREZ Order Number: [id number] Reading MD: Ector Jeffers Measurements Intervals [place] Rate: 81 P: 47 [place]: 169 QRS: -53 QRSD: 123 T: 146 QT: 403 QTc: 468 Interpretive Statements Sinus rhythm Ventricular premature complex Left bundle branch block Electronically Signed On 12-26-2024 22:34:12 PDT by Ector Jeffers Please click the below link to view image of tracing.
--- NOTE | 2024-12-22 13:32 | DVHSR ---
APPROVED REPORT EXAM: Two-dimensional and M-mode echocardiogram with Doppler and color Doppler. Blood Pressure: 110/81 mmHg INDICATION Heart Failure RISK FACTORS Height: 5'8", Weight: 184 DIMENSIONS LVDd6.7 (3.8-5.7cm)LA (2D)4.3 (1.9-4.0cm)Aortic Root3.7 (2.0-3.7cm) LVDs5.9 (2.5-4.0cm)LA (MM) (1.9-4.0cm)Aortic Cusp Exc1.8 (1.5-2.0cm) EF (%) 25.0 (55-70%)Rt. Atrium3.6 (1.9-4.0cm)Asc. Aorta3.6 cm IVSd0.4 (0.7-1.1cm)RV (D)3.7 (1.8-2.4cm) PWd0.8 (0.7-1.1cm) Mitral Valve MitralMitral Stenosis E wave0.73m/sMV Mean GR.mmHg E/A ratio0.02D MVAcm2 Aortic Valve Aortic ValveAortic Stenosis V10.39m/Steve Mean GR.1mmHg V20.75m/Steve Peak GR.2mmHg LVOT Diameter2.7 (1.8-2.4cm)Doppler AVA2.98cm2 Tricuspid Valve TR Velocity2.97m/s [id number] Other Information Quality : Technically LimitedRhythm : Technically limited study due to body habitus. Conclusion lve 20% apical thrombus noted RV dysfunction mild mitrai regurg
[2024-12-22] MEDS: ATORVASTATIN 20 MG TAB PO SCH (21:53)
[2024-12-23] VITALS (10 sets, daily range): BP systolic 100–130; BP diastolic 66–89; PULSE 72–99; RESP 16–20; TEMP 36.4; O2SAT 94–100
[2024-12-23] MEDS: NITROGLYCERIN 0.4 MG SL TAB SL PRN (05:27)
--- NOTE | 2024-12-23 08:38 | ECG ---
[facility] Test Date: 2024-12-23 Test Time: 08:35:37 Pat Name: XIAO HERNANDEZ Department: Respiratoy Room: 0223T B Gender: M Space Planner: MALIKA : 1960 Requested By: EUN LI Order Number: [id number] Reading MD: Ector Jeffers Measurements Intervals [place] Rate: 69 P: 28 [place]: 178 QRS: -50 QRSD: 131 T: 136 QT: 423 QTc: 454 Interpretive Statements Sinus rhythm Probable left atrial enlargement Left bundle branch block Baseline wander in lead(s) V5,V6 Electronically Signed On 12-26-2024 22:15:35 PDT by Ector Jeffers Please click the below link to view image of tracing.
--- NOTE | 2024-12-23 09:36 | ECG ---
[facility] Test Date: 2024-12-23 Test Time: 04:31:34 Pat Name: XIAO HERNANDEZ Department: Respiratoy Room: 0223T B Gender: M Forest Ranger: ARIC : 1960 Requested By: EUN LI Order Number: [id number] Reading MD: Ector Jeffers Measurements Intervals [place] Rate: 72 P: 37 [place]: 174 QRS: -46 QRSD: 134 T: 141 QT: 423 QTc: 463 Interpretive Statements Sinus rhythm Probable left atrial enlargement Left bundle branch block Electronically Signed On 12-26-2024 22:15:18 PDT by Ector Jeffers Please click the below link to view image of tracing.
--- NOTE | 2024-12-23 12:58 | DVHPN2 ---
Subjective The patient seen and examined at bedside. No complains today. Waiting for dc Reviewed: Care Plan, H&P, Labs, Medications, Previous Orders, Radiology Changes from previous H/P or p: No Changes Eyes: No Pain, No Vision change, No Conjunctivae inflammation, No Eyelid inflammation, No Other, No Redness ENT: No Ear pain, No Ear discharge, No Nose pain, No Nose discharge, No Nose congestion, No Mouth pain, No Mouth swelling, No Throat pain, No Throat swelling, No Other Cardiovascular: Chest Pain; No Palpitations, No Orthopnea, No Paroxysmal Noc. Dyspnea, No Edema, No Lt Headedness, No Other Respiratory: No Cough, No Dry, No Shortness of breath, No SOB with excertion, No Wheezing, No Hemoptysis, No Pleuritic Pain, No Sputum, No Other Gastrointestinal: No Nausea, No Vomiting, No Abdominal Pain, No Diarrhea, No Constipation, No Melena, No Hematochezia, No Other Genitourinary: No Dysuria, No Frequency, No Incontinence, No Hematuria, No Retention, No Other Musculoskeletal: No other, No neck pain, No shoulder pain, No arm pain, No back pain, No hand pain, No leg pain, No foot pain Skin: No Rash, No Lesions, No Jaundice, No Bruising, No Other Objective Vitals Vital Signs Date Time Temp Pulse Resp B/P (MAP) Pulse Ox O2 Delivery O2 Flow Rate FiO2 12/23/24 12:17 97.5 73 16 100/66 (77) 97 97.5 12/23/24 10:00 Room Air* 0 21 Intake/Output Intake and Output 12/23/24 07:00 Intake Total 800 ml Balance 800 ml Intake Oral 800 ml # Voids 6 # Bowel Movements 1 General Appearance: Alert, No acute distress HEENT: Atraumatic, PERRLA, EOMI, Mucous membr. moist/pink Neck: Supple Lungs: Clear to auscultation Medications Current Medications Medications Dose Ordered Sig/Manuel Route Start Time Stop Time Status Last Admin Dose Admin Aspirin 81 mg DAILY PO 12/21/24 10:00 12/23/24 08:51 81 MG Carvedilol 3.125 mg Q12HR PO 12/20/24 22:00 12/23/24 08:50 3.125 MG Levothyroxine Sodium 137 mcg QAM@0600 PO 12/21/24 06:00 8/15/25 05:35 137 MCG Tamsulosin HCl 0.4 mg QPM PO 12/20/24 18:00 12/22/24 18:04 0.4 MG Famotidine 20 mg DAILY IV 12/21/24 10:00 12/23/24 08:49 20 MG Albuterol 2.5 mg Q4HPRN PRN NEB 12/20/24 15:45 12/21/24 03:02 2.5 MG Diagnostic Test (Pha) 1 strip ACHS 12/20/24 17:00 12/23/24 11:30 1 STRIP Insulin Human Regular ACHS SC 12/20/24 17:00 Dextrose 50 ml UD PRN IV 12/20/24 15:45 Sodium Chloride 10 ml Q8HR IV 12/20/24 22:00 12/23/24 05:31 10 ML Acetaminophen/ Hydrocodone Bitart 1 tab Q4HP PRN PO 12/20/24 15:45 12/23/24 08:50 1 TAB Ondansetron HCl 4 mg Q4HP PRN IV 12/20/24 15:45 12/22/24 07:04 4 MG Docusate Sodium 100 mg BIDPRN PRN PO 12/20/24 15:45 Acetaminophen 650 mg Q6HP PRN PO 12/20/24 15:45 Nitroglycerin 0.4 mg Q5MINP PRN SL 12/20/24 17:00 12/23/24 10:23 0.4 MG Morphine Sulfate 2 mg Q30M PRN IV 12/20/24 17:00 Hold Furosemide 40 mg BIDD IV 12/21/24 18:00 12/23/24 06:26 40 MG Apixaban 10 mg BID PO 12/21/24 22:00 12/28/24 21:59 12/23/24 08:49 10 MG Atorvastatin Calcium 20 mg HS PO 12/22/24 22:00 12/22/24 21:53 20 MG Laboratory Results Laboratory Tests 12/21/24 04:00 12/21/24 04:50 Assessment/Plan Assessment/Plan Acute chest pain rule out coronary artery disease consult for Cardiology by Dr. Montalvo appreciated History of coronary artery disease Status post pacemaker Acute on chronic decompensated systolic congestive heart failure LV thrombus: Eliquis (Coumadin not started as the patient is noncompliant and can not comply with the Coumadin guidelines) CKD 3 Nonischemic cardiomyopathy COPD Depression Diabetes GERD Hypertension Hypercholesterolemia History of [place] Hypothyroidism Medication noncompliance History of polysubstance Patient is full code Poor prognosis Plan discussed with: Patient Date of Service: Dec 23, 2024 Billing Provider: STEF GUZMAN MD Common Visit Codes: [id number] INP/OBS CARE(HIGH) STEF GUZMAN MD Dec 23, 2024 12:58
== END 2024-12-23 16:28 | DRG 291 ==
LOC: ER 14:07 → OVERFLOW 16:58 → TELE-CENTR 12-21 05:00
PROVIDERS: ADMIT Family Medicine; ATTEND Family Medicine
DX: I13.0 Hypertensive heart and chronic kidney disease with heart failure and stage 1 through stage 4 chronic kidney disease, or unspecified chronic kidney disease (principal); I50.23 Acute on chronic systolic (congestive) heart failure; N17.9 Acute kidney failure, unspecified; I25.10 Atherosclerotic heart disease of native coronary artery without angina pectoris; I42.8 Other cardiomyopathies; F32.A Depression, unspecified; J44.9 Chronic obstructive pulmonary disease, unspecified; N18.30 Chronic kidney disease, stage 3 unspecified; K21.9 Gastro-esophageal reflux disease without esophagitis; F41.9 Anxiety disorder, unspecified; I25.2 Old myocardial infarction; E11.22 Type 2 diabetes mellitus with diabetic chronic kidney disease; E03.9 Hypothyroidism, unspecified; E78.00 Pure hypercholesterolemia, unspecified; F17.210 Nicotine dependence, cigarettes, uncomplicated; I44.7 Left bundle-branch block, unspecified; Z79.01 Long term (current) use of anticoagulants; Z95.0 Presence of cardiac pacemaker; Z91.148 Patient's other noncompliance with medication regimen for other reason; Z88.3 Allergy status to other anti-infective agents; Z83.3 Family history of diabetes mellitus; Z82.49 Family history of ischemic heart disease and other diseases of the circulatory system; Z80.3 Family history of malignant neoplasm of breast; Z79.82 Long term (current) use of aspirin; Z79.899 Other long term (current) drug therapy; Z88.5 Allergy status to narcotic agent; Z88.8 Allergy status to other drugs, medicaments and biological substances
CPT/HCPCS: 36415; 71045; 80053; 82962; 83880; 84443; 84484; 85007; 85027; 93005; 93306; 94640; 96374; 97110; 97163; G0378; J2405; J3490

== ENCOUNTER 2025-01-16 09:28 | Inpatient (IN) | payer MEDICARE, MEDICAID ==
[~2025-01-16] VITALS: Ht 172.7 cm; Wt 89.0 kg
[~2025-01-16 09:28] MED LIST changes: -ALBU108A5; -CLON0.5T4 PO; +DAPA1TAB4 PO; -DOXY100C79 PO; -METO25TA5 PO; -PRED20TA2 PO
--- NOTE | 2025-01-16 10:02 | ED.PDOC ---
HPI Comments 64 year old male presents to the ED with a chief compliant of chest pain onset today. Patient states he was at [facility], signed out AMA on 01/13/2025. Patient began experiencing chest pain, LT sided, non-radiating as well as shortness of breath. Patient's lay out technician is Dr. Montalvo. PMhx arthritis, CAD, CHF, CKF, COPD, depression, DM, GERD, HLD, HTN, [place], Thyroid disease. Denies fever, chills, headache, dizziness, nausea, vomiting, diarrhea. No other symptoms or modifying factors present at this time. Chief Complaint: Chest Pain Time Seen by MD: 09:35 Primary Care Provider: TRIP Reviewed Notes: Medications, Allergies Allergies: Coded Allergies: Empagliflozin (Verified Allergy, Severe, 07/24/24) Morphine (Unverified Allergy, Unknown, 04/18/22) SEVERE BRADYCARDIA Sulfamethoxazole w/Trimethoprim (Verified Allergy, Unknown, 11/06/24) Home Meds Active Scripts Aspirin (Aspirin Low Dose) 81 Mg Tab, 81 MG PO DAILY for 30 Days, #30 TAB Prov:MANJULA LAN BOILERMAKER MECHANIC 07/12/24 Potassium Chloride (Potassium Chloride ER) 10 Meq Tab, 10 MEQ PO BID for 30 Days, #60 TAB Prov:MANJULA LAN BOILERMAKER MECHANIC 07/11/24 Furosemide (Lasix) 40 Mg Tab, 40 MG PO BID for 30 Days, #60 TAB Prov:MANJULA LAN BOILERMAKER MECHANIC 07/11/24 Sacubitril-Valsartan (Entresto 24-26 mg) 1 Tab Tab, 1 TAB PO BID, #180 TAB Prov:EUN LI MD 09/16/23 Reported Medications Tiotropium [place] Monohydrate (Spiriva Respimat) 1.25 Mcg/Act Aer, 2 PUFF INH DAILY for 90 Days, #12 12/22/24 Carvedilol (Carvedilol) 6.25 Mg Tab, 1 TAB PO BID for 90 Days, #180 12/22/24 Dapagliflozin Propanediol (Farxiga) 10 Mg Tab, 10 MG PO DAILY, TAB 12/22/24 Levothyroxine Sodium (Levothyroxine Sodium) 137 Mcg Tab, 1 TAB PO DAILY for 70 Days, #70 07/25/24 Tamsulosin Hcl (Tamsulosin Hcl) 0.4 Mg Cap, 0.8 MG PO DAILY AFTER MEAL for 180 Days, #90 09/14/23 Information Source: Patient Mode of Arrival: Ambulatory Severity: Moderate Timing: Hours Duration: Since onset Prehospital treatment: None Location: Chest (L) Radiation: No Radiation Quality: Sharp Onset: At Rest Cardiac Risk Factors: Smoker, Hyperlipidemia, HTN, Diabetes PE Risk Factors: None History of: Similar pain in past, UT Associated Signs and Symptoms: SOB Past Medical History PAST MEDICAL HISTORY: Anxiety, CAD, CHF, CKF, COPD, Depression, DM, GERD, High Lipids, HTN, UT, Thyroid Surgical History: Pacemaker Family History Family History: Reviewed,noncontributory to illness, Unknown Social History Smoker: Cigarettes, Less Than 1 Pack/Day Alcohol: Denies ETOH Use Drugs: Denies Drug Use Lives In: Home Constitutional: denies: chills, diaphoresis, fatigue, fever, malaise, sweats, weakness, others EENTM: denies: blurred vision, double vision, ear bleeding, ear discharge, ear drainage, ear pain, ear ringing, eye pain, eye redness, hearing loss, mouth pain, mouth swelling, nasal discharge, nose bleeding, nose congestion, nose pain, photophobia, tearing, throat pain, throat swelling, voice changes, others Respiratory: reports: shortness of breath; denies: cough, hemoptysis, orthopnea, SOB at rest, SOB with excertion, stridor, wheezing, others Cardiovascular: reports: chest pain; denies: dizzy spells, diaphoresis, Dyspnea on exertion, edema, irregular heart beat, left arm pain, lightheadedness, palpitations, PND, syncope, others Gastrointestinal: denies: abdomen distended, abdominal pain, blood streaked bowels, constipated, diarrhea, dysphagia, difficulty swallowing, hematemesis, melena, nausea, poor appetite, poor fluid intake, rectal bleeding, rectal pain, vomiting, others Genitourinary: denies: burning, dysuria, flank pain, frequency, hematuria, incontinence, penile discharge, penile sore, pain, testicle pain, testicle swelling, urgency, others Neurological: denies: dizziness, fainting, headache, left sided numbness, left sided weakness, numbness, paresthesia, pre-existing deficit, right sided numbness, right sided weakness, seizure, speech problems, tingling, tremors, weakness, others Musculoskeletal: denies: back pain, gout, joint pain, joint swelling, muscle pain, muscle stiffness, neck pain, others Integumetry: denies: bruises, change in color, change in hair/nails, dryness, laceration, lesions, lumps, rash, wounds, others Allergic/Immunocompromised: denies: Difficulty Healing, Frequent Infections, Hives, Itching, others Hematologic/Lymphatic: denies: anemia, blood clots, easy bleeding, easy bruising, swollen glands, others Endocrine: denies: excessive hunger, excessive sweating, excessive thirst, excessive urination, flushing, intolerance to cold, intolerance to heat, unexplained weight gain, unexplained weight loss, others Psychiatric: denies: anxiety, bipolar disorder, depression, hopeless, panic disorder, schizophrenia, sleepless, suicidal, others All Other Systems: Reviewed and Negative Physical Exam General Appearance: Normal HEENT: Normal ENT Inspection, Pharynx Normal, TMs Normal Neck: Full Range of Motion, Non-Tender, Normal, Normal Inspection Respiratory: Chest Non-Tender, Lungs Clear, No Accessory Muscle Use, No Respiratory Distress, Normal Breath Sounds Cardiovascular: No Edema, No JVD, No Murmur, No Gallop, Normal Peripheral Pulses, Regular Rate/Rhythm Breast Exam: Deferred Gastrointestinal: No Organomegaly, Non Tender, No Pulsatile Mass, Normal Bowel Sounds, Soft Genitalia: Deferred Pelvic: Deferred Rectal: Deferred Extremities: No calf tenderness, Normal capillary refill, Normal inspection, Normal range of motion, Non-tender, No pedal edema Musculoskeletal : Apperance: Normal Neurologic: Alert, environmental health safety manager II-XII nml as Tested, No Motor Deficits, Normal Affect, Normal Mood, No Sensory Deficits Cerebellar Function: Normal Reflexes: Normal Skin: Dry, Normal Color, Warm Lymphatic: No Adenopathy Was a procedure done? Was a procedure done?: No X-Ray, Labs, Meds, VS Vital Signs Date Time Temp Pulse Resp B/P (MAP) Pulse Ox O2 Delivery O2 Flow Rate FiO2 01/16/25 09:35 98.3 104 19 116/85 96 98.3 01/16/25 09:30 98 Lab Test 01/16/25 09:37 Range/Units Troponin I High Sensitivity Pending Time of 1ST Reevaluation: 10:05 Reevaluation 1ST: Unchanged Patient Education/Counseling: Diagnosis, Treatment, Prognosis Family Education/Counseling: No Family Present SEPSIS Sepsis Screen Date sepsis recognized/suspect: Jan 16, 2025 Time Sepsis recognized/suspect: 927 Recent Procedure: No On Antibiotic Therapy: No Respiratory Rate >20: No Heart Rate >90: Yes Temp<36 C (96.8 F) or >38.3 C: No SBP <90 or MAP <65 mmHG: No New Acute Mental Status Change: No Is the patient on CPAP, BIPAP,: No Physician Orders Electrocardigram (01/16/25 09:34) Electrocardigram (01/16/25 10:34) Electrocardigram (01/16/25 12:34) Troponin-I Hs (01/16/25 09:34) Troponin-I Hs (01/16/25 10:34) Troponin-I Hs (01/16/25 12:34) Vital Signs Date Time Temp Pulse Resp B/P (MAP) Pulse Ox O2 Delivery O2 Flow Rate FiO2 01/16/25 09:35 98.3 104 19 116/85 96 98.3 01/16/25 09:30 98 Critical Care Note Critical Care Time?: No Stability Stability form required: No I personally scribed for DAVI SMITH MD ([email or web address]) on 01/16/25 at 10:02. Electronically submitted by Solomon Garcia ([email or web address]). I personally scribed for DAVI SMITH MD ([email or web address]) on 01/16/25 at 10:24. Electronically submitted by Barbara Patterson ([email or web address]). DAVI SMITH MD Jan 16, 2025 10:02
--- NOTE | 2025-01-16 10:25 | ED.PDOC ---
HPI Comments 64 year old male presents to the ED with a chief compliant of chest pain onset today. Patient states he was at [facility], signed out AMA on 01/13/2025. Patient began experiencing chest pain, LT sided, non-radiating as well as shortness of breath. Patient's mesh man is Dr. Montalvo. PMhx arthritis, CAD, CHF, CKF, COPD, depression, DM, GERD, HLD, HTN, OK, Thyroid disease. Denies fever, chills, headache, dizziness, nausea, vomiting, diarrhea. No other symptoms or modifying factors present at this time. Chief Complaint: Chest Pain Time Seen by MD: 09:35 Primary Care Provider: TRIP Reviewed Notes: Medications, Allergies Allergies: Coded Allergies: Empagliflozin (Verified Allergy, Severe, 07/24/24) Morphine (Unverified Allergy, Unknown, 04/18/22) SEVERE BRADYCARDIA Sulfamethoxazole w/Trimethoprim (Verified Allergy, Unknown, 11/06/24) Home Meds Active Scripts Aspirin (Aspirin Low Dose) 81 Mg Tab, 81 MG PO DAILY for 30 Days, #30 TAB Prov:MANJULA LAN CHAR CON[employer]YOR TENDER CELLAR 07/12/24 Potassium Chloride (Potassium Chloride ER) 10 Meq Tab, 10 MEQ PO BID for 30 Days, #60 TAB Prov:MANJULA LAN CHAR CON[employer]YOR TENDER CELLAR 07/11/24 Furosemide (Lasix) 40 Mg Tab, 40 MG PO BID for 30 Days, #60 TAB Prov:MANJULA LAN CHAR CONVEYOR TENDER CELLAR 07/11/24 Sacubitril-Valsartan (Entresto 24-26 mg) 1 Tab Tab, 1 TAB PO BID, #180 TAB Prov:EUN LI MD 09/16/23 Reported Medications Tiotropium [place]y Monohydrate (Spiriva Respimat) 1.25 Mcg/Act Aer, 2 PUFF INH DAILY for 90 Days, #12 12/22/24 Carvedilol (Carvedilol) 6.25 Mg Tab, 1 TAB PO BID for 90 Days, #180 12/22/24 Dapagliflozin Propanediol (Farxiga) 10 Mg Tab, 10 MG PO DAILY, TAB 12/22/24 Levothyroxine Sodium (Levothyroxine Sodium) 137 Mcg Tab, 1 TAB PO DAILY for 70 Days, #70 07/25/24 Tamsulosin Hcl (Tamsulosin Hcl) 0.4 Mg Cap, 0.8 MG PO DAILY AFTER MEAL for 180 Days, #90 09/14/23 Information Source: Patient Mode of Arrival: Ambulatory Severity: Moderate Timing: Days Duration: Since onset Prehospital treatment: None Location: Chest (L) Radiation: No Radiation Quality: Sharp Onset: At Rest Cardiac Risk Factors: Smoker, Hyperlipidemia, HTN, Diabetes PE Risk Factors: None History of: Similar pain in past, OK Modifying Factors: Nothing Associated Signs and Symptoms: SOB Past Medical History PAST MEDICAL HISTORY: Anxiety, CAD, CHF, CKF, COPD, Depression, DM, GERD, High Lipids, HTN, OK, Thyroid Surgical History: Pacemaker Family History Family History: Reviewed,noncontributory to illness, Unknown Social History Smoker: Cigarettes, Less Than 1 Pack/Day Alcohol: Denies ETOH Use Drugs: Denies Drug Use Lives In: Home Constitutional: denies: chills, diaphoresis, fatigue, fever, malaise, sweats, weakness, others EENTM: denies: blurred vision, double vision, ear bleeding, ear discharge, ear drainage, ear pain, ear ringing, eye pain, eye redness, hearing loss, mouth pain, mouth swelling, nasal discharge, nose bleeding, nose congestion, nose pain, photophobia, tearing, throat pain, throat swelling, voice changes, others Respiratory: reports: shortness of breath; denies: cough, hemoptysis, orthopnea, SOB at rest, SOB with excertion, stridor, wheezing, others Cardiovascular: reports: chest pain; denies: dizzy spells, diaphoresis, Dyspnea on exertion, edema, irregular heart beat, left arm pain, lightheadedness, palpi tations, PND, syncope, others Gastrointestinal: denies: abdomen distended, abdominal pain, blood streaked bowels, constipated, diarrhea, dysphagia, difficulty swallowing, hematemesis, melena, nausea, poor appetite, poor fluid intake, rectal bleeding, rectal pain, vomiting, others Genitourinary: denies: burning, dysuria, flank pain, frequency, hematuria, incontinence, penile discharge, penile sore, pain, testicle pain, testicle swelling, urgency, others Neurological: denies: dizziness, fainting, headache, left sided numbness, left sided weakness, numbness, paresthesia, pre-existing deficit, right sided numbness, right sided weakness, seizure, speech problems, tingling, tremors, weakness, others Musculoskeletal: denies: back pain, gout, joint pain, joint swelling, muscle pain, muscle stiffness, neck pain, others Integumetry: denies: bruises, change in color, change in hair/nails, dryness, laceration, lesions, lumps, rash, wounds, others Allergic/Immunocompromised: denies: Difficulty Healing, Frequent Infections, Hives, Itching, others Hematologic/Lymphatic: denies: anemia, blood clots, easy bleeding, easy bruis ing, swollen glands, others Endocrine: denies: excessive hunger, excessive sweating, excessive thirst, exc essive urination, flushing, intolerance to cold, intolerance to heat, unexplained weight gain, unexplained weight loss, others Psychiatric: denies: anxiety, bipolar disorder, depression, hopeless, panic disorder, schizophrenia, sleepless, suicidal, others All Other Systems: Reviewed and Negative Physical Exam General Appearance: Moderate Distress HEENT: Normal ENT Inspection, Pharynx Normal, TMs Normal Neck: Full Range of Motion, Non-Tender, Normal, Normal Inspection Respiratory: Chest Non-Tender, Lungs Clear, No Accessory Muscle Use, No Respiratory Distress, Normal Breath Sounds Cardiovascular: No Edema, No JVD, No Murmur, No Gallop, Normal Peripheral Pulses, Regular Rate/Rhythm Breast Exam: Deferred Gastrointestinal: No Organomegaly, Non Tender, No Pulsatile Mass, Normal Bowel Sounds, Soft Genitalia: Deferred Pelvic: Deferred Rectal: Deferred Extremities: No calf tenderness, Normal capillary refill, Normal inspection, Normal range of motion, Non-tender, No pedal edema Musculoskeletal : Apperance: Normal Neurologic: Alert, child & adolescent psychiatrist II-XII nml as Tested, No Motor Deficits, Normal Affect, Normal Mood, No Sensory Deficits Cerebellar Function: NOT DONE Reflexes: NOT DONE Skin: Dry, Normal Color, Warm Peripheral Pulses: 3+ Radial (R), 3+ Radial (L) Lymphatic: No Adenopathy EKG EKG : Pulse Rate (adult): 98 Cardiac Rhythm: ST Was a procedure done? Was a procedure done?: No CP Differential Dx Differential Diagnosis: A-fib, A-Flutter, Angina, Anxiety / Panic Attack, Atrial Dysrhythmia, Electrolyte Disorder X-Ray, Labs, Meds, VS Vital Signs Date Time Temp Pulse Resp B/P (MAP) Pulse Ox O2 Delivery O2 Flow Rate FiO2 01/16/25 10:34 94 01/16/25 10:25 98 01/16/25 09:35 98.3 104 19 116/85 96 98.3 01/16/25 09:30 98 Lab Test 01/16/25 10:38 01/16/25 09:37 Range/Units Troponin I High Sensitivity 25 26 </=54 ng/L White Blood Count 7.2 4.4-10.8 10^3/uL Red Blood Count 5.29 4.5-5.90 10^6/uL Hemoglobin 16.0 13.5-17.5 g/dL Hematocrit 47.7 41.0-53.0 % Mean Corpuscular Volume 90.2 80.0-100.0 fL Mean Corpuscular Hemoglobin 30.3 28.0-32.0 pg Mean Corpuscular Hemoglobin Concent 33.5 32.0-36.0 g/dL Red Cell Distribution Width 15.5 H 11.8-14.3 % Platelet Count 214 140-450 10^3/uL Mean Platelet Volume 9.1 6.9-10.8 fL Neutrophils (%) (Auto) 64.5 37.0-80.0 % Lymphocytes (%) (Auto) 18.6 10.0-50.0 % Monocytes (%) (Auto) 7.7 0.0-12.0 % Eosinophils (%) (Auto) 8.6 H 0.0-7.0 % Basophils (%) (Auto) 0.6 0.0-2.0 % Neutrophils # (Auto) 4.6 1.6-8.6 10 ^3/uL Lymphocytes # (Auto) 1.3 0.4-5.4 10 ^3/uL Monocytes # (Auto) 0.6 0-1.3 10 ^3/uL Eosinophils # (Auto) 0.6 0-0.8 10 ^3/uL Basophils # (Auto) 0 0-0.2 10 ^3/uL Nucleated Red Blood Cells 0.3 % Sodium Level 145 136-145 mmol/L Potassium Level 4.7 3.5-5.1 mmol/L Chloride Level 111 H 98-107 mmol/L Carbon Dioxide Level 28 20-31 mmol/L Anion Gap 6 5-15 Blood Urea Nitrogen 24 H 9-23 mg/dL Creatinine 1.30 0.700-1.30 mg/dL Glomerular Filtration Rate Calc 61 >90 mL/min BUN/Creatinine Ratio 18.5 10.0-20.0 Serum Glucose 127 H 74-106 mg/dL Calcium Level 9.1 8.7-10.4 mg/dL Patient alert. Complaining of chest pain. Vitals stable. Answering questions. EKG reviewed does show changes. WBC within normal limits. Hemoglobin within normal limits. Cardiac marker within normal limits. Has risk factors for coronary artery disease. No leg swelling. Reviewed his previous visit. Explained to the patient. Continue monitoring. Time of 1ST Reevaluation: 10:05 Reevaluation 1ST: Unchanged Patient Education/Counseling: Diagnosis, Treatment, Prognosis Family Education/Counseling: No Family Present SEPSIS Sepsis Screen Date sepsis recognized/suspect: Jan 16, 2025 Time Sepsis recognized/suspect: 927 Recent Procedure: No On Antibiotic Therapy: No Respiratory Rate >20: No Heart Rate >90: Yes Temp<36 C (96.8 F) or >38.3 C: No SBP <90 or MAP <65 mmHG: No New Acute Mental Status Change: No Is the patient on CPAP, BIPAP,: No Physician Orders Electrocardigram (01/16/25 09:34) Electrocardigram (01/16/25 10:34) Electrocardigram (01/16/25 12:34) Troponin-I Hs (01/16/25 12:34) Chest Portable (01/16/25 10:39) Vital Signs Date Time Temp Pulse Resp B/P (MAP) Pulse Ox O2 Delivery O2 Flow Rate FiO2 01/16/25 10:34 94 01/16/25 10:25 98 01/16/25 09:35 98.3 104 19 116/85 96 98.3 01/16/25 09:30 98 Laboratory Tests Test 01/16/25 09:37 White Blood Count 7.2 10^3/uL (4.4-10.8) Departure 1 Departure Time of Disposition: 13:05 Impression: Primary Impression: Chest pain of unknown etiology Disposition: ADMITTED INPATIENT Admit to: Med Surg Condition: Guarded Critical Care Note Critical Care Time?: No Stability Stability form required: No Heart Score Heart Score: Heart Score Response (Comments) Value History Slightly Suspicious 0 EKG Normal 0 Age >65 2 Risk Factors >3 or Hx ASHD 2 Troponin Normal limit 0 Total 4 I personally scribed for DAVI SMITH MD ([email or web address]) on 01/16/25 at 10:25. Electronically submitted by Barbara Patterson ([email or web address]). DAVI SMITH MD Jan 16, 2025 10:25
--- NOTE | 2025-01-16 11:18 | DVH ---
EXAM: XY CHEST PORTABLE HISTORY: sob COMPARISON: XY CHEST PORTABLE on DOS: 12/20/24, XY CHEST PORTABLE on DOS: 11/06/24, XR CHEST 1 VIEW on DOS: 10/30/24, XR CHEST 1 VIEW on DOS: 10/30/24, XY CHEST PORTABLE on DOS: 09/02/24 TECHNIQUE: Portable AP view of the chest was performed. FINDINGS: Left chest AICD is re-identified. There is central peribronchial thickening. No pneumothorax or cons olidative infiltrates. The heart is borderline enlarged. The aortic arch is calcific. IMPRESSION: Reactive airways disease. The lungs are otherwise clear.
[2025-01-16 11:52] LABS: Hematocrit 47.7 % (41.0-53.0); Hemoglobin 16.0 g/dL (13.5-17.5); Mean Corpuscular Hemoglobin 30.3 pg (28.0-32.0); Mean Corpuscular Volume 90.2 fL (80.0-100.0); Nucleated Red Blood Cells % 0.3 %; Potassium 4.7 mmol/L (3.5-5.1); Sodium 145 mmol/L (136-145)
[2025-01-16 11:53] LABS: Anion Gap 6 (5-15); Calcium 9.1 mg/dL (8.7-10.4); Carbon Dioxide 28 mmol/L (20-31)
[2025-01-16 11:58] LABS: BUN/Creatinine Ratio 18.5 (10.0-20.0)
[2025-01-16 11:59] LABS: Blood Urea Nitrogen 24 mg/dL (9-23); Chloride 111 mmol/L (98-107); Glucose 127 mg/dL (74-106)
--- NOTE | 2025-01-16 13:25 | ECG ---
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
[2025-01-16] MEDS ORDERED: APIX5TAB PO (16:14)
[2025-01-16] MEDS ORDERED: ACETAMINOPHEN 325 MG TAB PO PRN (16:15)
[2025-01-16] MEDS ORDERED: DOCUSATE SOD 100 MG CAP PO PRN (16:15)
[2025-01-16] MEDS ORDERED: ONDANSETRON HCL 4 MG/2 ML VIAL IV PRN (16:15)
[2025-01-16] MEDS ORDERED: MORPHINE SULFATE INJ 2 MG/ml SYRG IV PRN (16:15)
[2025-01-16] MEDS ORDERED: NITROGLYCERIN 0.4 MG SL TAB SL PRN (16:15)
--- NOTE | 2025-01-16 16:38 | DVHHP2 ---
History of Present Illness Reason for Visit: Chest pain History of Present Illness Good Almeida is a 64-year-old male with past medical history of apical thrombus, hypertension, hyperlipidemia, CAD, CHF, chronic kidney disease, COPD, depression, and GERD, who came to the hospital for shortness of breath and chest pain. Patient was recently admitted here for similar complaints, and was discharged to a senior care facility. He recently left the senior care facility against medical advise due to feeling better and wanting to go home. Last night he began to feel short of breath. His symptoms continued this morning with associated chest pain prompting him to come to the hospital. Cardiovascular: CAD, CHF, HTN, CT, hyperipidemia, Other (Defibrillator) Pulmonary: COPD GI: GERD Psych: Depression Renal/: Chronic renal insuff Past Surgical History: Other (Defibrillator, left leg surgery) Smoke: 1 pack per day ALCOHOL: occassional Drugs: None Lives: with Family Domestic Violence: Neg Review of Systems Constitutional: No: Fever, Chills, Sweats, Weakness, Malaise, Other Eyes: No: Pain, Vision change, Conjunctivae inflammation, Eyelid inflammation, Other, Redness ENT: No: Ear pain, Ear discharge, Nose pain, Nose discharge, Nose congestion, Mouth pain, Mouth swelling, Throat pain, Throat swelling, Other Respiratory: Shortness of breath, SOB with excertion; No: Cough, Dry, Wheezing, Hemoptysis, Pleuritic Pain, Sputum, Wheezing, Other Cardiovascular: Chest Pain, Palpitations; No: Orthopnea, Paroxysmal Noc. Dyspnea, Edema, Lt Headedness, Other Gastrointestinal: No: Nausea, Vomiting, Abdominal Pain, Diarrhea, Constipation, Melena, Hematochezia, Other Genitourinary: No Dysuria, No Frequency, No Incontinence, No Hematuria, No Retention, No Other Musculoskeletal: No: other, neck pain, shoulder pain, arm pain, back pain, hand pain, leg pain, foot pain Skin: No: Rash, Lesions, Jaundice, Bruising, Other Neurological: No: Weakness, Numbness, Incoordination, Change in speech, Confusion, Seizures, Other Allergies: Coded Allergies: Empagliflozin (Verified Allergy, Severe, 07/24/24) Morphine (Unverified Allergy, Unknown, 04/18/22) SEVERE BRADYCARDIA Sulfamethoxazole w/Trimethoprim (Verified Allergy, Unknown, 11/06/24) Exam Vital Signs Vital Signs Date Time Temp Pulse Resp B/P (MAP) Pulse Ox O2 Delivery O2 Flow Rate FiO2 01/16/25 15:32 103 18 132/96 (108) 96 01/16/25 09:35 98.3 98.3 General Appearance: Alert, Oriented X3, Cooperative, moderate distress HEENT: Atraumatic, PERRLA Respiratory: Other (Diminished breath sounds) Cardiovascular: Normal S1, Normal S2 Abdominal: Normal bowel sounds, Soft, No tenderness, No hepatospenomegaly Extremities: No clubbing, No cyanosis, Other (Bilateral pedal edema) Skin: No rashes, No breakdown, No significant lesion Neuro: Normal gait, Normal speech, Strength at 5/5 X4 ext Psych/Mental Status: Mental status NL, Mood NL Labs/Xrays Labs Test 01/16/25 12:59 01/16/25 09:37 Range/Units Troponin I High Sensitivity 24 </=54 ng/L White Blood Count 7.2 4.4-10.8 10^3/uL Red Blood Count 5.29 4.5-5.90 10^6/uL Hemoglobin 16.0 13.5-17.5 g/dL Hematocrit 47.7 41.0-53.0 % Mean Corpuscular Volume 90.2 80.0-100.0 fL Mean Corpuscular Hemoglobin 30.3 28.0-32.0 pg Mean Corpuscular Hemoglobin Concent 33.5 32.0-36.0 g/dL Red Cell Distribution Width 15.5 H 11.8-14.3 % Platelet Count 214 140-450 10^3/uL Mean Platelet Volume 9.1 6.9-10.8 fL Neutrophils (%) (Auto) 64.5 37.0-80.0 % Lymphocytes (%) (Auto) 18.6 10.0-50.0 % Monocytes (%) (Auto) 7.7 0.0-12.0 % Eosinophils (%) (Auto) 8.6 H 0.0-7.0 % Basophils (%) (Auto) 0.6 0.0-2.0 % Neutrophils # (Auto) 4.6 1.6-8.6 10 ^3/uL Lymphocytes # (Auto) 1.3 0.4-5.4 10 ^3/uL Monocytes # (Auto) 0.6 0-1.3 10 ^3/uL Eosinophils # (Auto) 0.6 0-0.8 10 ^3/uL Basophils # (Auto) 0 0-0.2 10 ^3/uL Nucleated Red Blood Cells 0.3 % Sodium Level 145 136-145 mmol/L Potassium Level 4.7 3.5-5.1 mmol/L Chloride Level 111 H 98-107 mmol/L Carbon Dioxide Level 28 20-31 mmol/L Anion Gap 6 5-15 Blood Urea Nitrogen 24 H 9-23 mg/dL Creatinine 1.30 0.700-1.30 mg/dL Glomerular Filtration Rate Calc 61 >90 mL/min BUN/Creatinine Ratio 18.5 10.0-20.0 Serum Glucose 127 H 74-106 mg/dL Calcium Level 9.1 8.7-10.4 mg/dL EXAM: XY CHEST PORTABLE TECHNIQUE: Portable AP view of the chest was performed. FINDINGS: Left chest AICD is re-identified. There is central peribronchial thickening. No pneumothorax or consolidative infiltrates. The heart is borderline enlarged. The aortic arch is calcific. IMPRESSION: Reactive airways disease. The lungs are otherwise clear. SEPSIS Sepsis Screen Date sepsis recognized/suspect: Jan 16, 2025 Time Sepsis recognized/suspect: 927 Recent Procedure: No On Antibiotic Therapy: No Respiratory Rate >20: No Heart Rate >90: Yes Temp<36 C (96.8 F) or >38.3 C: No SBP <90 or MAP <65 mmHG: No New Acute Mental Status Change: No Is the patient on CPAP, BIPAP,: No Physician Orders Electrocardigram (01/16/25 09:34) Electrocardigram (01/16/25 10:34) Electrocardigram (01/16/25 12:34) Chest Portable (01/16/25 10:39) Admit (01/16/25 16:07) Code Status (01/16/25 16:07) Sodium Chloride Lock (Saline Lock Ns) (01/16/25 22:00) Hydrocodone-Acet 5/325mg Tab ([place] 5/32 (01/16/25 16:15) Ondansetron Hcl (Zofran) (01/16/25 16:15) Docusate Sodium Capsule (Colace Capsule) (01/16/25 16:15) Complete Blood Count (01/17/25 04:00) Comprehensive Metabolic Panel (01/17/25 04:00) Cardiac Diet-2gna,Lofat,Lochol (01/16/25 Dinner) Condition: Serious (01/16/25 16:07) Acetaminophen Tablet (Tylenol Tablet) (01/16/25 16:15) Nitroglycerin Sublingual (Ntrostat Subli (01/16/25 16:15) Morphine Sulfate Injection (01/16/25 16:15) Stat Ekg For Chest Pain (01/16/25 16:07) Notify Md Of Changes From Base (01/16/25 16:07) Room Service Attendant For 24 Hours (01/16/25 16:07) Emergency Dysrhythmia Protocol (01/16/25 16:07) Rhythm Strips Once Every Shift (01/16/25 16:07) Oxygen By Nasal Cannula (01/16/25 16:07) Aspirin Enteric Coated Tablet (Ecotrin E (01/17/25 10:00) (Nf) Carvedilol (01/16/25 22:00) (Nf) Dapagliflozin Propanediol (Farxiga) (01/17/25 10:00) (Nf) Levothyroxine Sodium (01/17/25 10:00) Tamsulosin Hydrochloride (Flomax) (01/16/25 22:00) Vital Signs Date Time Temp Pulse Resp B/P (MAP) Pulse Ox O2 Delivery O2 Flow Rate FiO2 01/16/25 15:32 103 18 132/96 (108) 96 01/16/25 10:34 94 01/16/25 10:25 98 01/16/25 09:35 98.3 104 19 116/85 96 98.3 01/16/25 09:30 98 Laboratory Tests Test 01/16/25 09:37 White Blood Count 7.2 10^3/uL (4.4-10.8) Assessment/Plan Assessment/Plan Assessment: CHF exacerbation, Apical thrombus, Hypertension, Hyperlipidemia, COPD, Plan: Admit to Tele, Cardiology consult, IV Lasix, Breathing treatments, Strict I&O's, Accu checks with sliding scale, Home medications reconciled, Plan discussed with: Patient My Orders Orders - HARRY ALTMAN ENDODONTIST Procedure Category Date Status Time Admit ADMIT 01/16/25 Verified 16:07 Code Status CODE 9/8/25 Verified 16:07 Sodium Chloride Lock PHA 01/16/25 Verified (Saline Lock Ns) 22:00 Hydrocodone-Acet PHA 01/16/25 Verified 5/325mg Tab ([place] 16:15 Ondansetron Hcl PHA 01/16/25 Verified (Zofran) 16:15 Docusate Sodium PHA 01/16/25 Verified Capsule (Colace 16:15 Complete Blood Count LAB 01/17/25 Verified 04:00 Comprehensive LAB 01/17/25 Verified Metabolic Panel 04:00 Cardiac DIET 01/16/25 Verified Diet-2gna,Lofat,Lochol Dinner Condition: Serious TERRI 01/16/25 Verified 16:07 Acetaminophen Tablet PHA 01/16/25 Verified (Tylenol Tablet) 16:15 Nitroglycerin [facility] 01/16/25 Verified Sublingual (Ntrostat 16:15 Morphine Sulfate [facility] 01/16/25 Verified Injection 16:15 Stat Ekg For Chest [facility] 01/16/25 Verified Pain 16:07 Notify Md Of Changes [facility] 01/16/25 Verified From Base 16:07 Room Service Attendant For [facility] 01/16/25 Verified 24 Hours 16:07 Emergency Dysrhythmia [facility] 01/16/25 Verified Protocol 16:07 Rhythm Strips Once [facility] 01/16/25 Verified Every Shift 16:07 Oxygen By Nasal RT 01/16/25 Verified Cannula 16:07 Aspirin Enteric PHA 01/17/25 Verified Coated Tablet 10:00 (Nf) Carvedilol PHA 01/16/25 Verified 22:00 (Nf) Dapagliflozin PHA 01/17/25 Verified Propanediol (Farxiga) 10:00 (Nf) Levothyroxine PHA 01/17/25 Verified Sodium 10:00 Tamsulosin [facility] 01/16/25 Verified Hydrochloride (Flomax) 22:00 Date of Service: Jan 16, 2025 Billing Provider: HARRY ALTMAN Common Visit Codes: [id number] INP/OBS CARE (MOD) HARRY ALTMAN Jan 16, 2025 16:38
--- NOTE | 2025-01-16 20:17 | ECG ---
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
[2025-01-16] MEDS: SODIUM CHLOR 0.9% PF (SALINE LOCK) 10ML VIAL/SYR IV SCH (22:00)
[2025-01-16 22:24] VITALS: PULSE 110; RESP 20; O2SAT 95
[2025-01-16] MEDS: TAMSULOSIN HYDROCHLORIDE 0.4 MG CAP PO SCH (22:44)
[2025-01-16] MEDS: FUROSEMIDE 40 MG/4 ML VIAL IV ONE (22:45)
[2025-01-16] MEDS: CARVEDILOL 3.125 MG TAB PO SCH (22:46)
[2025-01-16 23:00] VITALS: BP 125/97; PULSE 97; RESP 20; TEMP 97.6; O2SAT 95
[2025-01-16 23:17] VITALS: BP 132/81; PULSE 102; RESP 21; TEMP 98
[2025-01-17] VITALS (10 sets, daily range): BP systolic 86–106; BP diastolic 57–78; PULSE 65–98; RESP 17–20; TEMP 97.6–98.6; O2SAT 96–100
[2025-01-17] MEDS: LEVOTHYROXINE SODIUM 25 MCG TAB PO SCH (05:08)
[2025-01-17] MEDS: LEVOTHYROXINE SODIUM 112 MCG TAB PO SCH (05:09)
[2025-01-17 05:16] LABS: Hematocrit 51.2 % (41.0-53.0); Hemoglobin 16.9 g/dL (13.5-17.5); Mean Corpuscular Hemoglobin 29.8 pg (28.0-32.0); Mean Corpuscular Volume 90.3 fL (80.0-100.0); Nucleated Red Blood Cells % 0.0 %
[2025-01-17 05:31] LABS: Albumin 4.2 g/dL (3.2-4.8); Alkaline Phosphatase 72 U/L (46-116); Anion Gap 6 (5-15); BUN/Creatinine Ratio 12.1 (10.0-20.0); Blood Urea Nitrogen 17 mg/dL (9-23); Calcium 9.4 mg/dL (8.7-10.4); Carbon Dioxide 29 mmol/L (20-31); Glucose 94 mg/dL (74-106); Potassium 4.6 mmol/L (3.5-5.1); Sodium 143 mmol/L (136-145); Total Protein 6.7 g/dL (5.7-8.2)
[2025-01-17 05:34] LABS: Alanine Aminotransferase 42 U/L (7-40); Bilirubin, Total 1.3 mg/dL (0.2-1.0); Chloride 108 mmol/L (98-107)
[2025-01-17] MEDS: ALBUTEROL SULF 2.5 MG/0.5ML(0.5%) NEB SOLN NEB PRN (07:10)
[2025-01-17] MEDS: FUROSEMIDE 40 MG/4 ML VIAL IV SCH (10:00)
[2025-01-17] MEDS: DAPAGLIFLOZIN PROPANEDIOL 10 MG PO SCH (10:00)
[2025-01-17] MEDS: ASPirin-EC 81 mg tab PO SCH (10:31)
--- NOTE | 2025-01-17 13:10 | DVHPN2 ---
Reviewed: Care Plan, H&P, Labs, Medications, Previous Orders, Radiology Changes from previous H/P or p: No Changes Eyes: No Pain, No Vision change, No Conjunctivae inflammation, No Eyelid inflammation, No Other, No Redness ENT: No Ear pain, No Ear discharge, No Nose pain, No Nose discharge, No Nose congestion, No Mouth pain, No Mouth swelling, No Throat pain, No Throat swelling, No Other Cardiovascular: Chest Pain, Palpitations; No Orthopnea, No Paroxysmal Noc. Dyspnea, No Edema, No Lt Headedness, No Other Respiratory: No Cough, No Dry; Shortness of breath, SOB with excertion; No Wheezing, No Hemoptysis, No Pleuritic Pain, No Sputum, No Other Gastrointestinal: No Nausea, No Vomiting, No Abdominal Pain, No Diarrhea, No Constipation, No Melena, No Hematochezia, No Other Genitourinary: No Dysuria, No Frequency, No Incontinence, No Hematuria, No Retention, No Other Musculoskeletal: No other, No neck pain, No shoulder pain, No arm pain, No back pain, No hand pain, No leg pain, No foot pain Skin: No Rash, No Lesions, No Jaundice, No Bruising, No Other Objective Vitals Vital Signs Date Time Temp Pulse Resp B/P (MAP) Pulse Ox O2 Delivery O2 Flow Rate FiO2 01/17/25 10:00 72 87/53 01/17/25 08:43 98.0 18 100 98.0 01/17/25 07:10 Nasal Cannula* 2 28 Medications Current Medications Medications Dose Ordered Sig/Manuel Route Start Time Stop Time Status Last Admin Dose Admin Sodium Chloride 10 ml Q8HR IV 01/16/25 22:00 01/17/25 05:08 10 ML Acetaminophen/ Hydrocodone Bitart 1 tab Q4HP PRN PO 01/16/25 16:15 Ondansetron HCl 4 mg Q4HP PRN IV 01/16/25 16:15 Docusate Sodium 100 mg BIDPRN PRN PO 01/16/25 16:15 Acetaminophen 650 mg Q6HP PRN PO 01/16/25 16:15 Nitroglycerin 0.4 mg Q5MINP PRN SL 01/16/25 16:15 Morphine Sulfate 2 mg Q30M PRN IV 01/16/25 16:15 Aspirin 81 mg DAILY PO 01/17/25 10:00 01/17/25 10:31 81 MG Carvedilol 6.25 mg BID PO 01/16/25 22:00 01/16/25 22:46 6.25 MG Patient Own Medication 10 mg DAILY PO 01/17/25 10:00 Levothyroxine Sodium 112 mcg QAM@0600 PO 01/17/25 06:00 01/17/25 05:09 112 MCG Tamsulosin HCl 0.4 mg HS PO 01/16/25 22:00 01/16/25 22:44 0.4 MG Furosemide 40 mg DAILY IV 01/17/25 10:00 Levothyroxine Sodium 25 mcg QAM@0600 PO 01/17/25 06:00 01/17/25 05:08 25 MCG Albuterol 2.5 mg Q6HPRN PRN NEB 01/16/25 22:45 01/17/25 07:10 2.5 MG Laboratory Results Laboratory Tests 01/17/25 04:24 Chemistry Test 01/17/25 04:24 Albumin 4.2 g/dL (3.2-4.8) Calcium Level 9.4 mg/dL (8.7-10.4) Total Protein 6.7 g/dL (5.7-8.2) LFT Test 01/17/25 04:24 Alanine Aminotransferase (ALT) 42 U/L (7-40) H Alkaline Phosphatase 72 U/L (46-116) Aspartate Amino Transferase (AST) 31 U/L (13-40) Total Bilirubin 1.3 mg/dL (0.2-1.0) H Labs and/or images reviewed: Labs reviewed by me, Image(s) reviewed by me Assessment/Plan Assessment/Plan Acute on chronic hypoxic respiratory failure Left ventricular thrombus: Continue Eliquis 5 mg p.o. b.i.d. consult for Cardiology Dr. Jeffers CHF exacerbation,: Lasix , Hypertension, Hyperlipidemia, COPD, Hypothyroidism BPH Noncompliance Time Spent 65 minutes Advanced care planning time 20 mts Patient is full code Plan discussed with: Patient Date of Service: Jan 17, 2025 Billing Provider: EUN LI MD Common Visit Codes: [id number] INP/OBS CARE(HIGH), [id number] CARE 30-74 MIN EUN LI MD Jan 17, 2025 13:10
[2025-01-17] MEDS: HYDROcodone-ACET 5/325MG TAB PO PRN (14:16)
--- NOTE | 2025-01-17 16:18 | DVHINCON2 ---
Date of service: Jan 17, 2025 History of Present Illness Good Almeida is a 64-year-old male with past medical history of apical thrombus, hypertension, hyperlipidemia, CAD, CHF, chronic kidney disease, COPD, depression, and GERD, who came to the hospital for shortness of breath and chest pain. Patient was recently admitted here for similar complaints, and was discharged to a snf facility. He recently left the snf facility against medical advise due to feeling better and wanting to go home. Last night he began to feel short of breath. His symptoms continued this morning with associated chest pain prompting him to come to the hospital. Cardiovascular: CAD, CHF, HTN, [place], hyperipidemia, Other (Defibrillator) Pulmonary: COPD GI: GERD Psych: Depression Renal/: Chronic renal insuff Past Surgical History: Other (Defibrillator, left leg surgery) Smoke: 1 pack per day ALCOHOL: occassional Drugs: None Lives: with Family Domestic Violence: Neg Past Medical History reviewed Family History: Alcoholism FH: arrhythmia G8 MOTHER FH: breast cancer G8 SISTER, , Cause: [place] (myocardial infarction) FH: diabetes mellitus FH: heart attack G8 FATHER, , Cause: [place] (myocardial infarction) G8 BROTHER, , Cause: [place] (myocardial infarction) Family history: Cardiovascular disease G8 FATHER, , Cause: [place] (myocardial infarction), Onset:40's - 50 Family history: Diabetes mellitus G8 MOTHER, Onset:40's - 50 G8 FATHER, , Cause: [place] (myocardial infarction) G8 SISTER, , Cause: [place] (myocardial infarction) Sister Allergies: Coded Allergies: Empagliflozin (Verified Allergy, Severe, 07/24/24) Morphine (Unverified Allergy, Unknown, 04/18/22) SEVERE BRADYCARDIA Sulfamethoxazole w/Trimethoprim (Verified Allergy, Unknown, 11/06/24) Home Meds Active Scripts Aspirin (Aspirin Low Dose) 81 Mg Tab, 81 MG PO DAILY for 30 Days, #30 TAB Prov:MANJULA LAN DIE CAST OPERATOR 07/12/24 Potassium Chloride (Potassium Chloride ER) 10 Meq Tab, 10 MEQ PO BID for 30 Days, #60 TAB Prov:MANJULA LAN DIE CAST OPERATOR 07/11/24 Furosemide (Lasix) 40 Mg Tab, 40 MG PO BID for 30 Days, #60 TAB Prov:MANJULA LAN DIE CAST OPERATOR 07/11/24 Sacubitril-Valsartan (Entresto 24-26 mg) 1 Tab Tab, 1 TAB PO BID, #180 TAB Prov:EUN LI MD 09/16/23 Reported Medications Apixaban Base (ELIQUIS) 5 Mg Tab, 1 TAB PO BID 01/16/25 Tiotropium [place] Monohydrate (Spiriva Respimat) 1.25 Mcg/Act Aer, 2 PUFF INH DAILY for 90 Days, #12 12/22/24 Carvedilol (Carvedilol) 6.25 Mg Tab, 1 TAB PO BID for 90 Days, #180 12/22/24 Dapagliflozin Propanediol (Farxiga) 10 Mg Tab, 10 MG PO DAILY, TAB 12/22/24 Levothyroxine Sodium (Levothyroxine Sodium) 137 Mcg Tab, 1 TAB PO DAILY for 70 Days, #70 07/25/24 Tamsulosin Hcl (Tamsulosin Hcl) 0.4 Mg Cap, 0.8 MG PO DAILY AFTER MEAL for 180 Days, #90 09/14/23 Current Medications Current Medications Medications (Trade) Dose Ordered Sig/Manuel Route PRN Reason Start Time Stop Time Status Last Admin Sodium Chloride (Saline Lock Ns) 10 ml Q8HR IV 01/16/25 22:00 01/17/25 05:08 Aspirin (Ecotrin Enteric Coated Tablet) 81 mg DAILY PO 01/17/25 10:00 01/17/25 10:31 Carvedilol (Coreg Tablet) 6.25 mg BID PO 01/16/25 22:00 01/16/25 22:46 Patient Own Medication 10 mg DAILY PO 01/17/25 10:00 Levothyroxine Sodium (Synthroid Tablet) 112 mcg QAM@0600 PO 01/17/25 06:00 01/17/25 05:09 Tamsulosin HCl (Flomax) 0.4 mg HS PO 01/16/25 22:00 01/16/25 22:44 Furosemide (Lasix Injection) 40 mg DAILY IV 01/17/25 10:00 Levothyroxine Sodium (Synthroid Tablet) 25 mcg QAM@0600 PO 01/17/25 06:00 01/17/25 05:08 Albuterol (Ventolin Medneb) 2.5 mg Q6HPRN PRN NEB SHORTNESS OF BREATH 01/16/25 22:45 9/9/25 07:10 Patient Own Medication 5 mg BID PO 01/17/25 22:00 UNV Review of Systems 10 pt ros otherwise negative Vital Signs Vital Signs Date Time Temp Pulse Resp B/P (MAP) Pulse Ox O2 Delivery O2 Flow Rate FiO2 01/17/25 13:00 98.6 87 20 106/71 (83) 98 98.6 01/17/25 07:10 Nasal Cannula* 2 28 Physical Exam nad s1 s2 rrr ctab abd distended trivial edema Labs/Diagnostic Data Labs Test 01/17/25 04:24 01/16/25 12:59 Range/Units White Blood Count 8.6 4.4-10.8 10^3/uL Red Blood Count 5.67 4.5-5.90 10^6/uL Hemoglobin 16.9 13.5-17.5 g/dL Hematocrit 51.2 41.0-53.0 % Mean Corpuscular Volume 90.3 80.0-100.0 fL Mean Corpuscular Hemoglobin 29.8 28.0-32.0 pg Mean Corpuscular Hemoglobin Concent 33.0 32.0-36.0 g/dL Red Cell Distribution Width 15.9 H 11.8-14.3 % Platelet Count 207 140-450 10^3/uL Mean Platelet Volume 8.9 6.9-10.8 fL Neutrophils (%) (Auto) 66.0 37.0-80.0 % Lymphocytes (%) (Auto) 16.2 10.0-50.0 % Monocytes (%) (Auto) 8.4 0.0-12.0 % Eosinophils (%) (Auto) 8.2 H 0.0-7.0 % Basophils (%) (Auto) 1.2 0.0-2.0 % Neutrophils # (Auto) 5.6 1.6-8.6 10 ^3/uL Lymphocytes # (Auto) 1.4 0.4-5.4 10 ^3/uL Monocytes # (Auto) 0.7 0-1.3 10 ^3/uL Eosinophils # (Auto) 0.7 0-0.8 10 ^3/uL Basophils # (Auto) 0.1 0-0.2 10 ^3/uL Nucleated Red Blood Cells 0.0 % Sodium Level 143 136-145 mmol/L Potassium Level 4.6 3.5-5.1 mmol/L Chloride Level 108 H 98-107 mmol/L Carbon Dioxide Level 29 20-31 mmol/L Anion Gap 6 5-15 Blood Urea Nitrogen 17 9-23 mg/dL Creatinine 1.40 H 0.700-1.30 mg/dL Glomerular Filtration Rate Calc 56 >90 mL/min BUN/Creatinine Ratio 12.1 10.0-20.0 Serum Glucose 94 74-106 mg/dL Calcium Level 9.4 8.7-10.4 mg/dL Total Bilirubin 1.3 H 0.2-1.0 mg/dL Aspartate Amino Transferase (AST) 31 13-40 U/L Alanine Aminotransferase (ALT) 42 H 7-40 U/L Alkaline Phosphatase 72 46-116 U/L Total Protein 6.7 5.7-8.2 g/dL Albumin 4.2 3.2-4.8 g/dL Troponin I High Sensitivity 24 </=54 ng/L Assessment acute on crhronic systolic and diastol nyha classs III HF ckd LV thrombus hx of ICD htn HL Plan/Recommendation cont iv lasix cont doac for LV thrombus monitor bp monitor tele echo done recently Plan discussed with: Patient DEREK SERRANO MD Jan 17, 2025 16:18
[2025-01-17] MEDS: APIXABAN 5 MG TAB PO SCH (21:25)
[2025-01-18] VITALS (11 sets, daily range): BP systolic 90–114; BP diastolic 63–76; PULSE 60–94; RESP 16–18; TEMP 97.7–98.3; O2SAT 90–99
--- NOTE | 2025-01-18 07:56 | DVHPN2 ---
Progress Note Date Seen: Jan 18, 2025 Medical Necessity Reason Pt with a Central, PICC or Fol: No Subjective Patient reports: Feels better Objective vital signs Vital Sign Date Time Temp Pulse Resp B/P (MAP) Pulse Ox O2 Delivery O2 Flow Rate FiO2 01/18/25 05:00 98.0 75 18 101/76 (84) 99 98.0 01/17/25 20:00 Nasal Cannula 2.0 01/17/25 20:00 28 Total Intake and Output 01/17/25 01/17/25 01/18/25 14:59 22:59 06:59 Intake Total 250 ml 300 ml Output Total 500 ml Balance 250 ml -200 ml medications Current Medications Medications Dose Ordered Sig/Manuel Route Start Time Stop Time Status Last Admin Dose Admin Sodium Chloride 10 ml Q8HR IV 01/16/25 22:00 01/18/25 06:11 10 ML Acetaminophen/ Hydrocodone Bitart 1 tab Q4HP PRN PO 01/16/25 16:15 01/17/25 21:24 1 TAB Ondansetron HCl 4 mg Q4HP PRN IV 01/16/25 16:15 Docusate Sodium 100 mg BIDPRN PRN PO 01/16/25 16:15 Acetaminophen 650 mg Q6HP PRN PO 01/16/25 16:15 Nitroglycerin 0.4 mg Q5MINP PRN SL 01/16/25 16:15 Morphine Sulfate 2 mg Q30M PRN IV 01/16/25 16:15 Aspirin 81 mg DAILY PO 01/17/25 10:00 01/17/25 10:31 81 MG Carvedilol 6.25 mg BID PO 01/16/25 22:00 01/16/25 22:46 6.25 MG Patient Own Medication 10 mg DAILY PO 01/17/25 10:00 Levothyroxine Sodium 112 mcg QAM@0600 PO 01/17/25 06:00 01/18/25 06:08 112 MCG Tamsulosin HCl 0.4 mg HS PO 01/16/25 22:00 01/17/25 21:24 0.4 MG Furosemide 40 mg DAILY IV 01/17/25 10:00 Levothyroxine Sodium 25 mcg QAM@0600 PO 01/17/25 06:00 01/18/25 06:08 25 MCG Albuterol 2.5 mg Q6HPRN PRN NEB 01/16/25 22:45 01/17/25 07:10 2.5 MG Apixaban 5 mg BID PO 01/17/25 22:00 01/17/25 21:25 5 MG Examination: GENERAL:Abnormal, HEENT:Abnormal, LUNGS:Abnormal, CVS:Abnormal, ABDOMEN:Abnormal laboratory and microbiology Laboratory Tests 01/17/25 04:24 Test 01/17/25 04:24 Range/Units Serum Glucose 94 74-106 mg/dL Problem List/Assessment/Plan Problem List/Assessment/Plan nyha class III HF systolic and diastolic acute on chronic ckd LV thrombus HTN HL iv lasix diuresed well cont doac GDMT with SGLT consider adding verquvo on dc Plan discussed with: Patient Date of Service: Jan 18, 2025 Billing Provider: DEREK SERRANO MD Common Visit Codes: NOT BILLABLE DEREK SERRANO MD Jan 18, 2025 07:56
--- NOTE | 2025-01-18 10:51 | DVHPN2 ---
Reviewed: Care Plan, H&P, Labs, Medications, Previous Orders, Radiology Changes from previous H/P or p: No Changes Eyes: No Pain, No Vision change, No Conjunctivae inflammation, No Eyelid inflammation, No Other, No Redness ENT: No Ear pain, No Ear discharge, No Nose pain, No Nose discharge, No Nose congestion, No Mouth pain, No Mouth swelling, No Throat pain, No Throat swelling, No Other Cardiovascular: Chest Pain, Palpitations; No Orthopnea, No Paroxysmal Noc. Dyspnea, No Edema, No Lt Headedness, No Other Respiratory: No Cough, No Dry; Shortness of breath, SOB with excertion; No Wheezing, No Hemoptysis, No Pleuritic Pain, No Sputum, No Other Gastrointestinal: No Nausea, No Vomiting, No Abdominal Pain, No Diarrhea, No Constipation, No Melena, No Hematochezia, No Other Genitourinary: No Dysuria, No Frequency, No Incontinence, No Hematuria, No Retention, No Other Musculoskeletal: No other, No neck pain, No shoulder pain, No arm pain, No back pain, No hand pain, No leg pain, No foot pain Skin: No Rash, No Lesions, No Jaundice, No Bruising, No Other Objective Vitals Vital Signs Date Time Temp Pulse Resp B/P (MAP) Pulse Ox O2 Delivery O2 Flow Rate FiO2 01/18/25 10:15 96 Room Air 0.0 01/18/25 10:15 21 01/18/25 09:00 98.3 70 16 90/67 (75) 98.3 Intake/Output Intake and Output 01/18/25 07:00 Intake Total 550 ml Output Total 500 ml Balance 50 ml Intake Oral 550 ml Output Urine Total 500 ml Medications Current Medications Medications Dose Ordered Sig/Manuel Route Start Time Stop Time Status Last Admin Dose Admin Sodium Chloride 10 ml Q8HR IV 01/16/25 22:00 01/18/25 06:11 10 ML Acetaminophen/ Hydrocodone Bitart 1 tab Q4HP PRN PO 01/16/25 16:15 01/18/25 08:55 1 TAB Ondansetron HCl 4 mg Q4HP PRN IV 01/16/25 16:15 Docusate Sodium 100 mg BIDPRN PRN PO 01/16/25 16:15 Acetaminophen 650 mg Q6HP PRN PO 01/16/25 16:15 Nitroglycerin 0.4 mg Q5MINP PRN SL 01/16/25 16:15 Morphine Sulfate 2 mg Q30M PRN IV 01/16/25 16:15 Aspirin 81 mg DAILY PO 01/17/25 10:00 01/18/25 08:54 81 MG Carvedilol 6.25 mg BID PO 01/16/25 22:00 01/16/25 22:46 6.25 MG Patient Own Medication 10 mg DAILY PO 01/17/25 10:00 Levothyroxine Sodium 112 mcg QAM@0600 PO 01/17/25 06:00 01/18/25 06:08 112 MCG Tamsulosin HCl 0.4 mg HS PO 01/16/25 22:00 01/17/25 21:24 0.4 MG Furosemide 40 mg DAILY IV 01/17/25 10:00 01/18/25 08:53 40 MG Levothyroxine Sodium 25 mcg QAM@0600 PO 01/17/25 06:00 01/18/25 06:08 25 MCG Albuterol 2.5 mg Q6HPRN PRN NEB 01/16/25 22:45 01/17/25 07:10 2.5 MG Apixaban 5 mg BID PO 01/17/25 22:00 01/18/25 08:54 5 MG Laboratory Results Laboratory Tests 01/17/25 04:24 Labs and/or images reviewed: Labs reviewed by me, Image(s) reviewed by me Assessment/Plan Assessment/Plan Acute on chronic hypoxic respiratory failure Left ventricular thrombus: Continue Eliquis 5 mg p.o. b.i.d. CHF exacerbation, class 3 : Lasix , cardiology consult by Dr. Montalvo. appreciated Hypertension, Hyperlipidemia, COPD, Hypothyroidism BPH Noncompliance Time Spent 65 minutes Advanced care planning time 20 mts Patient is full code Plan discussed with: Patient My Orders Orders - EUN LI MD Procedure Category Date Status Time Apixaban (Eliquis) PHA 01/17/25 In Process 22:00 Date of Service: Jan 18, 2025 Billing Provider: EUN LI MD Common Visit Codes: [id number] INP/OBS CARE(HIGH) EUN LI MD Jan 18, 2025 10:51
[2025-01-19 01:00] VITALS: BP 103/75; PULSE 72; RESP 17; TEMP 97.7; O2SAT 98
[2025-01-19] MEDS: ZOLPIDEM TARTRATE 5 MG TAB PO PRN (01:17)
[2025-01-19 05:00] VITALS: BP 103/73; PULSE 63; RESP 19; TEMP 97.8; O2SAT 96
[2025-01-19 05:32] LABS: COVID19 ANTIGEN SOFIA FIA NEGATIVE (NEGATIVE)
[2025-01-19 08:00] VITALS: PULSE 76; RESP 18; O2SAT 97
[2025-01-19 09:00] VITALS: BP 96/72; PULSE 76; RESP 18; TEMP 97.6; O2SAT 97
[2025-01-19 10:00] VITALS: O2SAT 97
--- NOTE | 2025-01-19 10:27 | DVHPN2 ---
Reviewed: Care Plan, H&P, Labs, Medications, Previous Orders, Radiology Changes from previous H/P or p: No Changes Eyes: No Pain, No Vision change, No Conjunctivae inflammation, No Eyelid inflammation, No Other, No Redness ENT: No Ear pain, No Ear discharge, No Nose pain, No Nose discharge, No Nose congestion, No Mouth pain, No Mouth swelling, No Throat pain, No Throat swelling, No Other Cardiovascular: Chest Pain, Palpitations; No Orthopnea, No Paroxysmal Noc. Dyspnea, No Edema, No Lt Headedness, No Other Respiratory: No Cough, No Dry; Shortness of breath, SOB with excertion; No Wheezing, No Hemoptysis, No Pleuritic Pain, No Sputum, No Other Gastrointestinal: No Nausea, No Vomiting, No Abdominal Pain, No Diarrhea, No Constipation, No Melena, No Hematochezia, No Other Genitourinary: No Dysuria, No Frequency, No Incontinence, No Hematuria, No Retention, No Other Musculoskeletal: No other, No neck pain, No shoulder pain, No arm pain, No back pain, No hand pain, No leg pain, No foot pain Skin: No Rash, No Lesions, No Jaundice, No Bruising, No Other Objective Vitals Vital Signs Date Time Temp Pulse Resp B/P (MAP) Pulse Ox O2 Delivery O2 Flow Rate FiO2 01/19/25 09:46 96/42 01/19/25 09:00 97.6 76 18 97 97.6 01/18/25 20:33 Nasal Cannula 2.0 01/18/25 20:33 28 Intake/Output Intake and Output 01/19/25 07:00 Intake Total 1365 ml Output Total 1250 ml Balance 115 ml Intake Oral 1365 ml Output Urine Total 1250 ml # Voids 4 Medications Current Medications Medications Dose Ordered Sig/Manuel Route Start Time Stop Time Status Last Admin Dose Admin Sodium Chloride 10 ml Q8HR IV 01/16/25 22:00 01/19/25 05:07 10 ML Acetaminophen/ Hydrocodone Bitart 1 tab Q4HP PRN PO 01/16/25 16:15 01/19/25 05:15 1 TAB Ondansetron HCl 4 mg Q4HP PRN IV 01/16/25 16:15 Docusate Sodium 100 mg BIDPRN PRN PO 01/16/25 16:15 Acetaminophen 650 mg Q6HP PRN PO 01/16/25 16:15 Nitroglycerin 0.4 mg Q5MINP PRN SL 01/16/25 16:15 Morphine Sulfate 2 mg Q30M PRN IV 01/16/25 16:15 Aspirin 81 mg DAILY PO 01/17/25 10:00 01/19/25 09:45 81 MG Carvedilol 6.25 mg BID PO 01/16/25 22:00 01/16/25 22:46 6.25 MG Patient Own Medication 10 mg DAILY PO 01/17/25 10:00 Levothyroxine Sodium 112 mcg QAM@0600 PO 01/17/25 06:00 01/19/25 05:08 112 MCG Tamsulosin HCl 0.4 mg HS PO 01/16/25 22:00 01/18/25 22:29 0.4 MG Furosemide 40 mg DAILY IV 01/17/25 10:00 01/19/25 09:46 40 MG Levothyroxine Sodium 25 mcg QAM@0600 PO 01/17/25 06:00 01/19/25 05:07 25 MCG Albuterol 2.5 mg Q6HPRN PRN NEB 01/16/25 22:45 01/17/25 07:10 2.5 MG Apixaban 5 mg BID PO 01/17/25 22:00 01/19/25 09:45 5 MG Zolpidem Tartrate 10 mg HS PRN PO 01/18/25 22:00 01/19/25 01:17 10 MG Laboratory Results Laboratory Tests 01/17/25 04:24 Labs and/or images reviewed: Labs reviewed by me, Image(s) reviewed by me Assessment/Plan Assessment/Plan Acute on chronic hypoxic respiratory failure Left ventricular thrombus: Continue Eliquis 5 mg p.o. b.i.d. CHF exacerbation, class 3 : Lasix , cardiology consult by Dr. Montalvo. appreciated advised Verquo as an outpatient Hypertension, Hyperlipidemia, COPD, Hypothyroidism BPH Insomnia: Ambien Anxiety: Xanax Noncompliance Time Spent 55 minutes Advanced care planning time 20 mts Patient is full code Plan discussed with: Patient My Orders Orders - EUN LI MD Procedure Category Date Status Time Pt Request For Service PT 01/18/25 Logged 10:51 Zolpidem Tartrate PHA 01/18/25 In Process (Ambien) 22:00 Mrsa Screen CINDY 9/10/25 In Process 19:16 Date of Service: Jan 19, 2025 Billing Provider: EUN LI MD Common Visit Codes: [id number] INP/OBS CARE(HIGH) EUN LI MD Jan 19, 2025 10:27
--- NOTE | 2025-01-19 10:34 | DVHDS2 ---
Discharge Summary Date of Admission Jan 16, 2025 at 16:07 Date of Discharge: Jan 19, 2025 Admitting Diagnosis Shortness of breath Wounds: None Labs/Diagnostic Data: Laboratory Results Test 01/18/25 20:15 01/17/25 04:24 01/16/25 12:59 SARS-CoV-2 Antigen (Rapid) Negative (NEGATIVE) White Blood Count 8.6 10^3/uL (4.4-10.8) Red Blood Count 5.67 10^6/uL (4.5-5.90) Hemoglobin 16.9 g/dL (13.5-17.5) Hematocrit 51.2 % (41.0-53.0) Mean Corpuscular Volume 90.3 fL (80.0-100.0) Mean Corpuscular Hemoglobin 29.8 pg (28.0-32.0) Mean Corpuscular Hemoglobin Concent 33.0 g/dL (32.0-36.0) Red Cell Distribution Width 15.9 % (11.8-14.3) Platelet Count 207 10^3/uL (140-450) Mean Platelet Volume 8.9 fL (6.9-10.8) Neutrophils (%) (Auto) 66.0 % (37.0-80.0) Lymphocytes (%) (Auto) 16.2 % (10.0-50.0) Monocytes (%) (Auto) 8.4 % (0.0-12.0) Eosinophils (%) (Auto) 8.2 % (0.0-7.0) Basophils (%) (Auto) 1.2 % (0.0-2.0) Neutrophils # (Auto) 5.6 10 ^3/uL (1.6-8.6) Lymphocytes # (Auto) 1.4 10 ^3/uL (0.4-5.4) Monocytes # (Auto) 0.7 10 ^3/uL (0-1.3) Eosinophils # (Auto) 0.7 10 ^3/uL (0-0.8) Basophils # (Auto) 0.1 10 ^3/uL (0-0.2) Nucleated Red Blood Cells 0.0 % Sodium Level 143 mmol/L (136-145) Potassium Level 4.6 mmol/L (3.5-5.1) Chloride Level 108 mmol/L (98-107) Carbon Dioxide Level 29 mmol/L (20-31) Anion Gap 6 (5-15) Blood Urea Nitrogen 17 mg/dL (9-23) Creatinine 1.40 mg/dL (0.700-1.30) Glomerular Filtration Rate Calc 56 mL/min (>90) BUN/Creatinine Ratio 12.1 (10.0-20.0) Serum Glucose 94 mg/dL (74-106) Calcium Level 9.4 mg/dL (8.7-10.4) Total Bilirubin 1.3 mg/dL (0.2-1.0) Aspartate Amino Transferase (AST) 31 U/L (13-40) Alanine Aminotransferase (ALT) 42 U/L (7-40) Alkaline Phosphatase 72 U/L (46-116) Total Protein 6.7 g/dL (5.7-8.2) Albumin 4.2 g/dL (3.2-4.8) Troponin I High Sensitivity 24 ng/L (</=54) Other Laboratory Tests 01/17/25 04:24 Brief Hx & Hospital Course: 64-year-old male diagnosed with left ventricular thrombus 12/21/2024 on Eliquis 5 mg p.o. b.i.d. was in [facility] and left AMA and got admitted again to [facility] for shortness of breath. Patient has a severe systolic congestive heart failure class three with the ejection fraction 20 percent. Patient was placed back on Eliquis. Cardiology consult by Dr. Montalvo for advised to continue the current medications for the comorbid conditions and advised verquo as an outpatient. Placed on Ambien for insomnia and Xanax for anxiety patient is noncompliant history of hypertension hyperlipidemia hypothyroidism BPH COPD patient [facility]. The patient agrees with the plan General condition poor secondary to severe CHF with ejection fraction 20% Consults/Reason for consult Cardiology Dr. Montalvo Operations or Procedures None Condition at Discharge: Fair Final Diagnosis/Problems List Acute on chronic hypoxic respiratory failure Left ventricular thrombus: Continue Eliquis 5 mg p.o. b.i.d. CHF exacerbation, class 3 : Lasix , cardiology consult by Dr. Montalvo. appreciated advised Verquo as an outpatient echo 20 percent ejection fraction 01/07/2025 Hypertension, Hyperlipidemia, COPD, Hypothyroidism BPH Insomnia: Ambien Anxiety: Xanax Noncompliance Discharge Disposition: [facility] Facility Discharge Instruct/Medications Diet: Cardiac 2g Na,low cholest Activity: Light activity Follow Up/Referral: Follow up with the [facility] Medications: see list Scheduled Apixaban Base (Eliquis), 1 TAB PO BID, (Reported) Aspirin (Aspirin Low Dose), 81 MG PO DAILY Carvedilol (Carvedilol), 1 TAB PO BID, (Reported) Dapagliflozin Propanediol (Farxiga), 10 MG PO DAILY, (Reported) Furosemide (Lasix), 40 MG PO BID Levothyroxine Sodium (Levothyroxine Sodium), 1 TAB PO DAILY, (Reported) Potassium Chloride (Potassium Chloride ER), 10 MEQ PO BID Sacubitril-Valsartan (Entresto 24-26 mg), 1 TAB PO BID Tamsulosin Hcl (Tamsulosin Hcl), 0.8 MG PO DAILY AFTER MEAL, (Reported) Tiotropium [place] Monohydrate (Spiriva Respimat), 2 PUFF INH DAILY, (Reported) 39 (Time Taken for discharge summary 39 minutes) Discharge Statement: "Patient was advised to return to the ER or call 911 if any headaches, dizziness, shortness of breath, chest pain, abdominal pain, bleeding, fevers, or worsening of medical condition. Patient was counseled about treatment plan, medications, possible side effects, patientverbalized understanding. All questions were answered to the best of my ability. This discharge took greater then 30 minutes in planning, reviewing documentation, counseling the patient, and discussing with other team members." ASSESSMENT ASSESSMENT Hospital Course Improved marginally Assessment Acute on chronic hypoxic respiratory failure Left ventricular thrombus: Continue Eliquis 5 mg p.o. b.i.d. CHF exacerbation, class 3 : Lasix , cardiology consult by Dr. Montalvo. appreciated advised Verquo as an outpatient Hypertension, Hyperlipidemia, COPD, Hypothyroidism BPH Insomnia: Ambien Anxiety: Xanax Noncompliance Date of Service: Jan 19, 2025 Billing Provider: EUN LI MD Common Visit Codes: [id number] DISCH DAY >30min EUN LI MD Jan 19, 2025 10:34
--- NOTE | 2025-01-19 11:44 | DVHPN2 ---
Progress Note Date Seen: Jan 19, 2025 Medical Necessity Reason Pt with a Central, PICC or Fol: No Subjective Patient reports: Feels better Objective vital signs Vital Sign Date Time Temp Pulse Resp B/P (MAP) Pulse Ox O2 Delivery O2 Flow Rate FiO2 01/19/25 10:00 97 Room Air* 0 21 01/19/25 09:46 96/42 01/19/25 09:00 97.6 76 18 97.6 Total Intake and Output 01/18/25 01/18/25 01/19/25 15:00 23:00 07:00 Intake Total 1115 ml 250 ml Output Total 1250 ml Balance -135 ml 250 ml medications Current Medications Medications Dose Ordered Sig/Manuel Route Start Time Stop Time Status Last Admin Dose Admin Sodium Chloride 10 ml Q8HR IV 01/16/25 22:00 01/19/25 05:07 10 ML Acetaminophen/ Hydrocodone Bitart 1 tab Q4HP PRN PO 01/16/25 16:15 01/19/25 05:15 1 TAB Ondansetron HCl 4 mg Q4HP PRN IV 01/16/25 16:15 Docusate Sodium 100 mg BIDPRN PRN PO 01/16/25 16:15 Acetaminophen 650 mg Q6HP PRN PO 01/16/25 16:15 Nitroglycerin 0.4 mg Q5MINP PRN SL 01/16/25 16:15 Morphine Sulfate 2 mg Q30M PRN IV 01/16/25 16:15 Aspirin 81 mg DAILY PO 01/17/25 10:00 01/19/25 09:45 81 MG Carvedilol 6.25 mg BID PO 01/16/25 22:00 01/16/25 22:46 6.25 MG Patient Own Medication 10 mg DAILY PO 01/17/25 10:00 Levothyroxine Sodium 112 mcg QAM@0600 PO 01/17/25 06:00 01/19/25 05:08 112 MCG Tamsulosin HCl 0.4 mg HS PO 01/16/25 22:00 01/18/25 22:29 0.4 MG Furosemide 40 mg DAILY IV 01/17/25 10:00 01/19/25 09:46 40 MG Levothyroxine Sodium 25 mcg QAM@0600 PO 01/17/25 06:00 01/19/25 05:07 25 MCG Albuterol 2.5 mg Q6HPRN PRN NEB 01/16/25 22:45 01/17/25 07:10 2.5 MG Apixaban 5 mg BID PO 01/17/25 22:00 01/19/25 09:45 5 MG Zolpidem Tartrate 10 mg HS PRN PO 01/18/25 22:00 01/19/25 01:17 10 MG Alprazolam 1 mg TID PO 01/19/25 14:00 Examination: GENERAL:Abnormal, HEENT:Abnormal, LUNGS:Abnormal, CVS:Abnormal, ABDOMEN:Abnormal laboratory and microbiology Laboratory Tests 01/17/25 04:24 Test 01/17/25 04:24 Range/Units Serum Glucose 94 74-106 mg/dL Problem List/Assessment/Plan Problem List/Assessment/Plan nyha class III HF systolic and diastolic acute on chronic ckd LV thrombus HTN HL iv lasix diuresed well cont doac GDMT with SGLT consider adding verquvo on dc Plan discussed with: Patient Date of Service: Jan 19, 2025 Billing Provider: DEREK SERRANO MD Common Visit Codes: NOT BILLABLE DEREK SERRANO MD Jan 19, 2025 11:44
[2025-01-19 13:00] VITALS: BP 106/77; PULSE 89; RESP 16; TEMP 98.6; O2SAT 96
[2025-01-19] MEDS: ALPRAZolam 0.5 MG TAB PO SCH (13:23)
== END 2025-01-19 16:17 | DRG 291 ==
LOC: ER 09:28 → OVERFLOW 16:07 → TELE-EAST 01-17 16:20
PROVIDERS: ADMIT Family Medicine; ATTEND Family Medicine
DX: I13.0 Hypertensive heart and chronic kidney disease with heart failure and stage 1 through stage 4 chronic kidney disease, or unspecified chronic kidney disease (principal); I50.23 Acute on chronic systolic (congestive) heart failure; J96.21 Acute and chronic respiratory failure with hypoxia; I51.3 Intracardiac thrombosis, not elsewhere classified; E78.5 Hyperlipidemia, unspecified; E11.22 Type 2 diabetes mellitus with diabetic chronic kidney disease; E03.9 Hypothyroidism, unspecified; J44.9 Chronic obstructive pulmonary disease, unspecified; F32.A Depression, unspecified; N18.9 Chronic kidney disease, unspecified; K21.9 Gastro-esophageal reflux disease without esophagitis; N40.0 Benign prostatic hyperplasia without lower urinary tract symptoms; I25.10 Atherosclerotic heart disease of native coronary artery without angina pectoris; F41.9 Anxiety disorder, unspecified; F17.210 Nicotine dependence, cigarettes, uncomplicated; G47.00 Insomnia, unspecified; Z95.810 Presence of automatic (implantable) cardiac defibrillator; Z91.199 Patient's noncompliance with other medical treatment and regimen due to unspecified reason; Z82.49 Family history of ischemic heart disease and other diseases of the circulatory system; Z83.3 Family history of diabetes mellitus; Z80.3 Family history of malignant neoplasm of breast; Z79.01 Long term (current) use of anticoagulants; Z81.1 Family history of alcohol abuse and dependence; Z88.5 Allergy status to narcotic agent; Z88.3 Allergy status to other anti-infective agents
CPT/HCPCS: 36415; 71045; 80048; 80053; 84484; 85025; 87081; 87426; 93005; 94640; 97163; G0378

== ENCOUNTER 2025-02-07 00:02 | Inpatient (IN) | payer MEDICARE, MEDICAID ==
[2025-02-07] VITALS (17 sets, daily range): BP systolic 88–121; BP diastolic 52–73; PULSE 62–101; RESP 11–20; TEMP 97.8–98.7; O2SAT 90–100
[~2025-02-07] VITALS: Ht 172.7 cm; Wt 89.2 kg
[~2025-02-07 00:02] MED LIST changes: +APIX5TAB PO
--- NOTE | 2025-02-07 00:49 | ED.PDOC ---
HPI Comments 64-year-old male who came to ER for chest pains. Patient picked up at [facility], has a history of CHF, COPD, diabetes hypertension, status post pacemaker insertion. With the past hour to arrival, developed shortness a breath and chest pains. Was saturating 96% at 2 L/min with a SBP of 87% Chief Complaint: Chest Pain Time Seen by MD: 00:49 Primary Care Provider: TRIP Reviewed Notes: Nurses Notes Allergies: Coded Allergies: Empagliflozin (Verified Allergy, Severe, 07/24/24) Morphine (Unverified Allergy, Unknown, 04/18/22) SEVERE BRADYCARDIA Sulfamethoxazole w/Trimethoprim (Verified Allergy, Unknown, 11/06/24) Home Meds Active Scripts Aspirin (Aspirin Low Dose) 81 Mg Tab, 81 MG PO DAILY for 30 Days, #30 TAB Prov:MANJULA [employer] REPRESENTATIVE 07/12/24 Potassium Chloride (Potassium Chloride ER) 10 Meq Tab, 10 MEQ PO BID for 30 Days, #60 TAB Prov:MANJULA [employer] SALES REPRESENTATIVE 07/11/24 Furosemide (Lasix) 40 Mg Tab, 40 MG PO BID for 30 Days, #60 TAB Prov:MANJULA [employer] SALES REPRESENTATIVE 07/11/24 Sacubitril-Valsartan (Entresto 24-26 mg) 1 Tab Tab, 1 TAB PO BID, #180 TAB Prov:EUN LI MD 09/16/23 Reported Medications Apixaban Base (ELIQUIS) 5 Mg Tab, 1 TAB PO BID 01/16/25 Tiotropium [place] Monohydrate (Spiriva Respimat) 1.25 Mcg/Act Aer, 2 PUFF INH DAILY for 90 Days, #12 12/22/24 Carvedilol (Carvedilol) 6.25 Mg Tab, 1 TAB PO BID for 90 Days, #180 12/22/24 Dapagliflozin Propanediol (Farxiga) 10 Mg Tab, 10 MG PO DAILY, TAB 12/22/24 Levothyroxine Sodium (Levothyroxine Sodium) 137 Mcg Tab, 1 TAB PO DAILY for 70 Days, #70 07/25/24 Tamsulosin Hcl (Tamsulosin Hcl) 0.4 Mg Cap, 0.8 MG PO DAILY AFTER MEAL for 180 Days, #90 09/14/23 Information Source: Patient Mode of Arrival: EMS Severity: Moderate Timing: Hours Past Medical History PAST MEDICAL HISTORY: Anxiety, CAD, CHF, CKF, COPD, Depression, DM, GERD, High Lipids, HTN, PA, Thyroid Surgical History: Pacemaker Family History Family History: Reviewed,noncontributory to illness, Unknown Social History Smoker: Cigarettes, Less Than 1 Pack/Day Alcohol: Denies ETOH Use Drugs: Denies Drug Use Lives In: [facility] Constitutional: denies: chills, diaphoresis, fatigue, fever, malaise, sweats, weakness, others EENTM: denies: blurred vision, double vision, ear bleeding, ear discharge, ear drainage, ear pain, ear ringing, eye pain, eye redness, hearing loss, mouth pain, mouth swelling, nasal discharge, nose bleeding, nose congestion, nose pain, photophobia, tearing, throat pain, throat swelling, voice changes, others Respiratory: reports: SOB at rest, shortness of breath, SOB with excertion; denies: cough, hemoptysis, orthopnea, stridor, wheezing, others Cardiovascular: reports: chest pain; denies: dizzy spells, diaphoresis, Dyspnea on exertion, edema, irregular heart beat, left arm pain, lightheadedness, palpitations, PND, syncope, others Gastrointestinal: denies: abdomen distended, abdominal pain, blood streaked bowels, constipated, diarrhea, dysphagia, difficulty swallowing, hematemesis, melena, nausea, poor appetite, poor fluid intake, rectal bleeding, rectal pain, vomiting, others Genitourinary: denies: burning, dysuria, flank pain, frequency, hematuria, incontinence, penile discharge, penile sore, pain, testicle pain, testicle swelling, urgency, others Neurological: denies: dizziness, fainting, headache, left sided numbness, left sided weakness, numbness, paresthesia, pre-existing deficit, right sided numbness, right sided weakness, seizure, speech problems, tingling, tremors, weakness, others Musculoskeletal: denies: back pain, gout, joint pain, joint swelling, muscle pain, muscle stiffness, neck pain, others Integumetry: denies: bruises, change in color, change in hair/nails, dryness, laceration, lesions, lumps, rash, wounds, others Allergic/Immunocompromised: denies: Difficulty Healing, Frequent Infections, Hives, Itching, others Hematologic/Lymphatic: denies: anemia, blood clots, easy bleeding, easy bruising, swollen glands, others Endocrine: denies: excessive hunger, excessive sweating, excessive thirst, excessive urination, flushing, intolerance to cold, intolerance to heat, unexplained weight gain, unexplained weight loss, others Psychiatric: denies: anxiety, bipolar disorder, depression, hopeless, panic disorder, schizophrenia, sleepless, suicidal, others Physical Exam General Appearance: No Apparent Distress, Normal HEENT: Normal ENT Inspection, Pharynx Normal, TMs Normal Neck: Full Range of Motion, Non-Tender, Normal, Normal Inspection Respiratory: Chest Non-Tender, Lungs Clear, No Accessory Muscle Use, No Respiratory Distress, Normal Breath Sounds Cardiovascular: No Edema, No JVD, No Murmur, No Gallop, Normal Peripheral Pulses, Regular Rate/Rhythm Breast Exam: Deferred Gastrointestinal: No Organomegaly, Non Tender, No Pulsatile Mass, Normal Bowel Sounds, Soft Genitalia: Deferred Pelvic: Deferred Rectal: Deferred Extremities: No calf tenderness, Normal capillary refill, Normal inspection, Normal range of motion, Non-tender, No pedal edema Musculoskeletal : Apperance: Normal Neurologic: Alert, rice drier II-XII nml as Tested, No Motor Deficits, Normal Affect, Normal Mood, No Sensory Deficits Cerebellar Function: Normal Reflexes: Normal Skin: Dry, Normal Color, Warm Lymphatic: No Adenopathy EKG EKG : Pulse Rate (adult): 62 Cardiac Rhythm: NSR, PVC's Block: LBBB Was a procedure done? Was a procedure done?: No CP Differential Dx Differential Diagnosis: Angina, Anxiety / Panic Attack, Electrolyte Disorder, Pacemaker Malfunction Differential Diagnosis: CHF Differential Diagnosis: Angina, Chest Wall Pain, Costochondritis, Esophageal reflux/spasm, Gastritis, Myocardial Infarction, Pneumonia X-Ray, Labs, Meds, VS Vital Signs Date Time Temp Pulse Resp B/P (MAP) Pulse Ox O2 Delivery O2 Flow Rate FiO2 02/07/25 00:49 62 02/07/25 00:29 98.7 58 14 93/52 (66) 95 98.7 02/07/25 00:29 14 95 Nasal Cannula* 2 28 02/07/25 00:20 60 02/07/25 00:12 97.7 56 18 92/62 96 97.7 02/07/25 00:05 62 Lab Test 02/07/25 01:57 02/07/25 01:00 Range/Units Troponin I High Sensitivity Pending 21 </=54 ng/L White Blood Count 4.9 4.4-10.8 10^3/uL Red Blood Count 5.09 4.5-5.90 10^6/uL Hemoglobin 15.3 13.5-17.5 g/dL Hematocrit 45.7 41.0-53.0 % Mean Corpuscular Volume 89.8 80.0-100.0 fL Mean Corpuscular Hemoglobin 30.1 28.0-32.0 pg Mean Corpuscular Hemoglobin Concent 33.5 32.0-36.0 g/dL Red Cell Distribution Width 15.9 H 11.8-14.3 % Platelet Count 195 140-450 10^3/uL Mean Platelet Volume 8.3 6.9-10.8 fL Neutrophils (%) (Auto) 45.7 37.0-80.0 % Lymphocytes (%) (Auto) 28.2 10.0-50.0 % Monocytes (%) (Auto) 14.0 H 0.0-12.0 % Eosinophils (%) (Auto) 9.8 H 0.0-7.0 % Basophils (%) (Auto) 2.3 H 0.0-2.0 % Neutrophils # (Auto) 2.2 1.6-8.6 10 ^3/uL Lymphocytes # (Auto) 1.4 0.4-5.4 10 ^3/uL Monocytes # (Auto) 0.7 0-1.3 10 ^3/uL Eosinophils # (Auto) 0.5 0-0.8 10 ^3/uL Basophils # (Auto) 0.1 0-0.2 10 ^3/uL Nucleated Red Blood Cells 0.1 % Sodium Level 145 136-145 mmol/L Potassium Level 3.8 3.5-5.1 mmol/L Chloride Level 107 98-107 mmol/L Carbon Dioxide Level 28 20-31 mmol/L Anion Gap 10 5-15 Blood Urea Nitrogen 26 H 9-23 mg/dL Creatinine 1.57 H 0.700-1.30 mg/dL Glomerular Filtration Rate Calc 49 >90 mL/min BUN/Creatinine Ratio 16.6 10.0-20.0 Serum Glucose 61 L 74-106 mg/dL Lactic Acid Level 1.5 0.4-2.0 mmol/L Calcium Level 8.4 L 8.7-10.4 mg/dL Magnesium Level 2.6 1.6-2.6 mg/dL Total Bilirubin 0.2 0.2-1.0 mg/dL Aspartate Amino Transferase (AST) 29 13-40 U/L Alanine Aminotransferase (ALT) 19 7-40 U/L Alkaline Phosphatase 94 46-116 U/L B-Type Natriuretic Peptide 286.25 0-100 pg/mL Total Protein 6.4 5.7-8.2 g/dL Albumin 3.8 3.2-4.8 g/dL Current Medications Medications (Trade) Dose Ordered Sig/Manuel Route Start Time Stop Time Status Last Admin Sodium Chloride 1,000 ml @ 1,000 mls/hr Q1H ONCE IV 02/07/25 02:15 02/07/25 03:14 02/07/25 02:15 Piperacillin Sod/ Tazobactam Sod 100 ml @ 100 mls/hr ONCE ONCE IV 02/07/25 02:15 02/07/25 03:14 02/07/25 02:15 EXAM: XY CHEST PORTABLE HISTORY: sob COMPARISON: XY CHEST PORTABLE on DOS: 12/20/24, XY CHEST PORTABLE on DOS: 11/06/24, XR CHEST 1 VIEW on DOS: 10/30/24, XR CHEST 1 VIEW on DOS: 10/30/24, XY CHEST PORTABLE on DOS: 09/02/24 TECHNIQUE: Portable AP view of the chest was performed. FINDINGS: Left chest AICD is re-identified. There is central peribronchial thickening. No pneumothorax or consolidative infiltrates. The heart is borderline enlarged. The aortic arch is calcific. IMPRESSION: Reactive airways disease. The lungs are otherwise clear. Time of 1ST Reevaluation: 00:45 Reevaluation 1ST: Unchanged Patient Education/Counseling: Diagnosis, Treatment Family Education/Counseling: No Family Present SEPSIS Sepsis Screen Date sepsis recognized/suspect: Feb 07, 2025 Time Sepsis recognized/suspect: 004 Recent Procedure: No On Antibiotic Therapy: No Respiratory Rate >20: No Heart Rate >90: No Temp<36 C (96.8 F) or >38.3 C: No SBP <90 or MAP <65 mmHG: No New Acute Mental Status Change: No Is the patient on CPAP, BIPAP,: No Physician Orders Electrocardigram (02/07/25 00:08) Troponin-I Hs (02/07/25 01:10) Troponin-I Hs (02/07/25 03:10) Chest Xray 1 View (02/07/25 00:10) Blood Culture (02/07/25 01:58) Sodium Chloride 0.9% (02/07/25 02:15) Piperacillin-Tazob 3.375gm (Zosyn 3.375g (02/07/25 02:15) Vital Signs Date Time Temp Pulse Resp B/P (MAP) Pulse Ox O2 Delivery O2 Flow Rate FiO2 02/07/25 00:49 62 02/07/25 00:29 98.7 58 14 93/52 (66) 95 98.7 02/07/25 00:29 14 95 Nasal Cannula* 2 28 02/07/25 00:20 60 02/07/25 00:12 97.7 56 18 92/62 96 97.7 02/07/25 00:05 62 Laboratory Tests Test 02/07/25 01:00 Lactic Acid Level 1.5 mmol/L (0.4-2.0) White Blood Count 4.9 10^3/uL (4.4-10.8) Medications Medications Dose Ordered Sig/Manuel Route Start Time Stop Time Status Last Admin Dose Admin Piperacillin Sod/ Tazobactam Sod 100 ml @ 100 mls/hr ONCE ONCE IV 02/07/25 02:15 02/07/25 03:14 02/07/25 02:15 Sodium Chloride 1,000 ml @ 1,000 mls/hr Q1H ONCE IV 02/07/25 02:15 02/07/25 03:14 02/07/25 02:15 Departure 1 Departure Time of Disposition: 03:02 Impression: Primary Impression: ACS (acute coronary syndrome) Additional Impressions: Dehydration Acute renal injury Disposition: ADMITTED INPATIENT Admit to: Tele Condition: Guarded Discharged With: Self Comments 64-year-old male for report is DNR DNI comfort measures only now complains of some chest pain and shortness of breath. He on his lab results has acute renal injury with BUN creatinine elevated 26 and 1.57. Patient was given IV fluids and IV Zosyn antibiotics. Patient will need to be admitted for supportive care and further workup. Critical Care Note Critical Care Time?: Yes (35 min-critical care time only) Critical care comment: Shortness a breath Stability Stability form required: No Heart Score Heart Score: Heart Score Response (Comments) Value History Moderate Suspicious 1 EKG Repolarization Disturb 1 Age >65 2 Risk Factors >3 or Hx ASHD 2 Troponin Normal limit 0 Total 6 I personally scribed for SIMRAN LAUREANO MD ([email or web address]) on 02/07/25 at 00:49. Electronically submitted by Tony Mcdaniels ([email or web address]). SIMRAN LAUREANO MD Feb 07, 2025 00:49
[2025-02-07 01:18] LABS: Hematocrit 45.7 % (41.0-53.0); Hemoglobin 15.3 g/dL (13.5-17.5); Mean Corpuscular Hemoglobin 30.1 pg (28.0-32.0); Mean Corpuscular Volume 89.8 fL (80.0-100.0); Nucleated Red Blood Cells % 0.1 %
[2025-02-07 01:33] LABS: Alanine Aminotransferase 19 U/L (7-40); Albumin 3.8 g/dL (3.2-4.8); Alkaline Phosphatase 94 U/L (46-116); BUN/Creatinine Ratio 16.6 (10.0-20.0); Carbon Dioxide 28 mmol/L (20-31); Magnesium 2.6 mg/dL (1.6-2.6); Total Protein 6.4 g/dL (5.7-8.2)
[2025-02-07 01:34] LABS: Bilirubin, Total 0.2 mg/dL (0.2-1.0); Blood Urea Nitrogen 26 mg/dL (9-23); Calcium 8.4 mg/dL (8.7-10.4); Glucose 61 mg/dL (74-106)
[2025-02-07 01:49] LABS: Anion Gap 10 (5-15); Potassium 3.8 mmol/L (3.5-5.1); Sodium 145 mmol/L (136-145)
[2025-02-07 01:59] LABS: Chloride 107 mmol/L (98-107)
[2025-02-07] MEDS: PIPERACILLIN-TAZOB 3.375GM 100 ML IV ONE (02:15)
[2025-02-07] MEDS: SODIUM CHLORIDE 0.9% 1,000 ML IV ONE (02:15)
--- NOTE | 2025-02-07 02:51 | DVH ---
CHEST RADIOGRAPH Indication: SOB Technique: Single frontal view of the chest was obtained COMPARISON: XY CHEST PORTABLE on DOS: 01/16/25, XY CHEST PORTABLE on DOS: 12/20/24, XY CHEST PORTABLE on DOS: 11/06/24, XR CHEST 1 VIEW on DOS: 10/30/24, XR CHEST 1 VIEW on DOS: 10/30/24 FINDINGS: Lines and Tubes: None. Left anterior chest wall dual lead cardiac pacing device. Lungs: Diffuse increased prominence of the pulmonary vasculature without evidence of focal consolidat ion. Pleura: No effusion. No pneumothorax. Cardiomediastinal contours: Cardiomegaly. Bones: Unremarkable IMPRESSION: 1. Cardiomegaly with mild pulmonary vascular congestion.
--- NOTE | 2025-02-07 03:43 | DVHHP2 ---
Admitting Diagnosis: Chest pain and shortness of breath History of Present Illness 64 yo male patient was admitted for chest pain and shortness of breath. Patient has end stage congestive heart failure, estimated ejection fraction 20%. Patient was found to have a left ventricular thrombus. He was placed on Eliquis instead of Coumadin due to his known medical noncompliance. Patient has a prior history of methamphetamine abuse. He did test negative today, positive for benzodiazepines. Patient does have severe anxiety. While in the emergency department the patient was evaluated by the provider, As per provider: Labs, vital signs, and imagining monitored. Patient will be admitted for further evaluation and treatment. I discussed admission with the patient/family and is in agreement to treatment plan. Patient Family History: Alcoholism FH: arrhythmia G8 MOTHER FH: breast cancer G8 SISTER, , Cause: [place] (myocardial infarction) FH: diabetes mellitus FH: heart attack G8 FATHER, , Cause: HI (myocardial infarction) G8 BROTHER, , Cause: HI (myocardial infarction) Family history: Cardiovascular disease G8 FATHER, , Cause: [place] (myocardial infarction), Onset:40s - 50 Family history: Diabetes mellitus G8 MOTHER, Onset:40s - 50 G8 FATHER, , Cause: HI (myocardial infarction) G8 SISTER, , Cause: HI (myocardial infarction) Sister Allergies: Coded Allergies: Empagliflozin (Verified Allergy, Severe, 07/24/24) Morphine (Unverified Allergy, Unknown, 04/18/22) SEVERE BRADYCARDIA Sulfamethoxazole w/Trimethoprim (Verified Allergy, Unknown, 11/06/24) Home Meds Active Scripts Aspirin (Aspirin Low Dose) 81 Mg Tab, 81 MG PO DAILY for 30 Days, #30 TAB Prov:MANJULA LAN ENGINEERING PROGRAM MANAGER 07/12/24 Potassium Chloride (Potassium Chloride ER) 10 Meq Tab, 10 MEQ PO BID for 30 Days, #60 TAB Prov:MANJULA LAN ENGINEERING PROGRAM MANAGER 07/11/24 Furosemide (Lasix) 40 Mg Tab, 40 MG PO BID for 30 Days, #60 TAB Prov:MANJULA LAN ENGINEERING PROGRAM MANAGER 07/11/24 Sacubitril-Valsartan (Entresto 24-26 mg) 1 Tab Tab, 1 TAB PO BID, #180 TAB Prov:EUN LI MD 09/16/23 Reported Medications Apixaban Base (ELIQUIS) 5 Mg Tab, 1 TAB PO BID 01/16/25 Tiotropium [place] Monohydrate (Spiriva Respimat) 1.25 Mcg/Act Aer, 2 PUFF INH DAILY for 90 Days, #12 12/22/24 Carvedilol (Carvedilol) 6.25 Mg Tab, 1 TAB PO BID for 90 Days, #180 12/22/24 Dapagliflozin Propanediol (Farxiga) 10 Mg Tab, 10 MG PO DAILY, TAB 12/22/24 Levothyroxine Sodium (Levothyroxine Sodium) 137 Mcg Tab, 1 TAB PO DAILY for 70 Days, #70 07/25/24 Tamsulosin Hcl (Tamsulosin Hcl) 0.4 Mg Cap, 0.8 MG PO DAILY AFTER MEAL for 180 Days, #90 09/14/23 Current Medications Current Medications Medications (Trade) Dose Ordered Sig/Manuel Route PRN Reason Start Time Stop Time Status Last Admin Acetaminophen/ Hydrocodone Bitart ([place] 5/325MG Tab) 1 tab Q4HP PRN PO MODERATE PAIN (4-6 PAIN SCALE) 02/07/25 03:45 02/07/25 10:56 Temazepam (Restoril) 15 mg QHSP PRN PO FOR INSOMNIA 02/07/25 03:45 Ondansetron HCl (Zofran) 4 mg Q4HP PRN IV NAUSEA / VOMITING 02/07/25 03:45 Docusate Sodium (Colace Capsule) 100 mg BIDPRN PRN PO FOR CONSTIPATION 02/07/25 03:45 Enoxaparin Sodium (Lovenox) 40 mg DAILY SC 02/07/25 10:00 02/07/25 03:46 DC Acetaminophen (Tylenol Tablet) 650 mg Q6HP PRN PO PAIN SCALE 1-3 OR TEMP>100.4 02/07/25 03:45 Nitroglycerin (Ntrostat Sublingual) 0.4 mg Q5MIN PRN SL FOR CHEST PAIN 02/07/25 03:45 Albuterol (Ventolin Medneb) 2.5 mg Q4HP PRN NEB SHORTNESS OF BREATH 02/07/25 03:45 02/07/25 20:25 Nitroglycerin (Ntrostat Sublingual) 0.4 mg Q5MINP PRN SL FOR CHEST PAIN 02/07/25 03:45 02/07/25 03:47 DC Apixaban (Eliquis) 5 mg BID PO 02/07/25 10:00 02/07/25 10:15 Furosemide (Lasix Tablet) 40 mg BIDD PO 02/07/25 10:00 02/07/25 10:21 Sacubitril/ Valsartan (Entresto 24-26 Mg tab) 1 tab BID PO 02/07/25 10:00 02/07/25 10:15 Tamsulosin HCl (Flomax) 0.8 mg DAILY PO 02/07/25 10:00 02/07/25 10:15 Carvedilol (Coreg Tablet) 6.25 mg BID PO 02/07/25 10:00 02/07/25 10:15 Patient Own Medication 10 mg DAILY PO 02/07/25 10:00 Levothyroxine Sodium (Synthroid Tablet) 112 mcg QAM@0600 PO 02/07/25 06:00 02/07/25 06:16 Potassium Chloride (Klor-Con Tablet) 10 meq BID PO 02/07/25 10:00 02/07/25 10:16 Patient Own Medication 2 puff DAILY IN 02/07/25 10:00 Levothyroxine Sodium (Synthroid Tablet) 25 mcg QAM@0600 PO 02/07/25 06:00 02/07/25 06:14 Diphenhydramine HCl (Benadryl Capsule) 25 mg Q6HP PRN PO FOR ITCHING 02/07/25 14:15 02/07/25 14:20 Alprazolam (Xanax Tablet) 0.5 mg Q8HPRN PRN PO ANXIETY 02/07/25 17:45 Review of Systems Constitutional: denies chills, denies fever, denies malaise Eyes: denies eye pain, denies vision change ENT: denies ear pain, denies headache, denies nasal congestion, denies painful swallowing, denies voice change Cardiovascular: denies chest pain, denies edema, denies orthopnea, denies palpitations, denies paroxysmal nocturnal dyspnea Respiratory: denies cough, denies shortness of breath Gastrointestinal: denies constipation, denies diarrhea, denies nausea, denies vomiting Genitourinary: denies dysuria, denies frequent urination, denies urethral discharge Musculoskeletal: denies back pain, denies joint pain, denies muscle pain Skin: denies bruising, denies itching, denies rash Neurological: denies focal weakness, denies headache, denies sensory changes Psychiatric: denies anxiety, denies depression Endocrine: denies polydipsia, denies polyuria Hematologic/Lymphatic: denies easy bleeding, denies easy bruising, denies enlarged lymph nodes Allergic/Immunologic: denies allergy, denies hives Vital Signs Vital Signs Date Time Temp Pulse Resp B/P (MAP) Pulse Ox O2 Delivery O2 Flow Rate FiO2 02/07/25 20:31 101 18 93 02/07/25 20:25 Nasal Cannula 2.0 02/07/25 20:25 28 02/07/25 18:00 109/70 02/07/25 17:49 98.1 98.1 Physical Exam General Appearance: alert, no distress HEENT: EOMI, PERRLA, normal external inspect of ears, no icterus, no nasal dr ainage Neck: no carotid bruit, no jugular venous distention (JVD), no lymphadenopathy Chest: normal thorax Respiratory: clear to auscultation, normal air movement Cardiovascular: regular rate and rhythm, no diastolic murmur, no jugular venous distention (JVD), no rub, no systolic murmur Abdominal: soft, no hepatomegaly, no mass, no splenomegaly, no tenderness Genitourinary: grossly normal external Musculoskeletal: no joint tenderness, no swelling Extremities: normal pulses, no calf tenderness, no clubbing, no cyanosis, no edema Skin: no bruising, no jaundice, no rash Neurological: alert, No focal deficit SEPSIS Sepsis Screen Date sepsis recognized/suspect: Feb 07, 2025 Time Sepsis recognized/suspect: 004 Recent Procedure: No On Antibiotic Therapy: No Respiratory Rate >20: No Heart Rate >90: No Temp<36 C (96.8 F) or >38.3 C: No SBP <90 or MAP <65 mmHG: No New Acute Mental Status Change: No Is the patient on CPAP, BIPAP,: No Physician Orders Chest Xray 1 View (02/07/25 00:10) Blood Culture (02/07/25 01:58) Admit (02/07/25 03:36) Code Status (02/07/25 03:36) Oxygen Per Hour (02/07/25 03:36) Hydrocodone-Acet 5/325mg Tab ([place] 5/32 (02/07/25 03:45) Temazepam (Restoril) (02/07/25 03:45) Ondansetron Hcl (Zofran) (02/07/25 03:45) Docusate Sodium Capsule (Colace Capsule) (02/07/25 03:45) Complete Blood Count (02/08/25 04:00) Comprehensive Metabolic Panel (02/08/25 04:00) Cardiac Diet-2gna,Lofat,Lochol (02/07/25 Breakfast) Condition: Serious (02/07/25 03:36) Condition: Stable (02/07/25 03:36) Acetaminophen Tablet (Tylenol Tablet) (02/07/25 03:45) Sequential Compression Device (02/07/25 ) Nitroglycerin Sublingual (Ntrostat Subli (02/07/25 03:45) Albuterol Medneb (Ventolin Medneb) (02/07/25 03:45) Stat Ekg For Chest Pain (02/07/25 03:36) Notify Md Of Changes From Base (02/07/25 03:36) Instruction Librarian For 24 Hours (02/07/25 03:36) Emergency Dysrhythmia Protocol (02/07/25 03:36) Rhythm Strips Once Every Shift (02/07/25 03:36) Oxygen By Nasal Cannula (02/07/25 03:36) Apixaban (Eliquis) (02/07/25 10:00) Furosemide Tablet (Lasix Tablet) (02/07/25 10:00) Sacubitril-Valsartan (Entresto 24-26 Mg (02/07/25 10:00) Tamsulosin Hydrochloride (Flomax) (02/07/25 10:00) Carvedilol Tablet (Coreg Tablet) (02/07/25 10:00) (Nf) Dapagliflozin Propanediol (Farxiga) (02/07/25 10:00) Levothyroxine Tablet (Synthroid Tablet) (02/07/25 06:00) Potassium Er Tablet (Klor-Con Tablet) (02/07/25 10:00) (Nf) Tiotropium [place] Monohydrate (Spi (02/07/25 10:00) Levothyroxine Tablet (Synthroid Tablet) (02/07/25 06:00) *Consult Dr. Montalvo (02/07/25 12:01) Diphenhdramine Capsule (Benadryl Capsule (02/07/25 14:15) [place] Screen (02/07/25 16:53) Alprazolam Tablet (Xanax Tablet) (02/07/25 17:45) Vital Signs Date Time Temp Pulse Resp B/P (MAP) Pulse Ox O2 Delivery O2 Flow Rate FiO2 02/07/25 20:31 101 18 93 02/07/25 20:25 69 18 96 02/07/25 20:25 96 Nasal Cannula 2.0 02/07/25 20:25 96 Nasal Cannula* 2 28 02/07/25 18:00 109/70 02/07/25 17:49 98.1 69 20 109/70 (83) 96 98.1 02/07/25 17:00 Nasal Cannula* 2 28 02/07/25 16:10 97.8 74 15 88/56 (67) 90 97.8 02/07/25 14:50 73 11 100 02/07/25 14:44 97 Nasal Cannula 2.0 02/07/25 14:44 97 Nasal Cannula* 2 28 02/07/25 14:44 80 18 97 02/07/25 13:11 97.8 80 16 101/72 (82) 100 97.8 02/07/25 11:35 82 107/65 02/07/25 10:21 117/73 02/07/25 10:15 89 117/73 02/07/25 08:43 97.8 82 16 117/72 (87) 93 97.8 02/07/25 08:43 97.8 82 16 117/72 (87) 93 97.8 02/07/25 08:36 98 Room Air* 0 21 02/07/25 08:36 98 Room Air 0.0 02/07/25 08:00 98.7 85 14 105/73 (84) 99 98.7 02/07/25 08:00 Room Air* 0 21 02/07/25 06:45 97.8 81 15 97/73 (81) 96 97.8 02/07/25 05:03 90 20 121/64 (83) 95 02/07/25 04:10 74 17 100 02/07/25 04:00 95 Nasal Cannula 2.0 02/07/25 04:00 62 14 95 02/07/25 04:00 95 Nasal Cannula* 2 28 02/07/25 03:55 98.7 64 20 93/52 95 2.0 98.7 02/07/25 02:00 59 18 97/62 (74) 95 02/07/25 00:49 62 02/07/25 00:29 98.7 58 14 93/52 (66) 95 98.7 02/07/25 00:29 14 95 Nasal Cannula* 2 28 02/07/25 00:20 60 02/07/25 00:12 97.7 56 18 92/62 96 97.7 02/07/25 00:05 62 Laboratory Tests Test 02/07/25 01:00 Lactic Acid Level 1.5 mmol/L (0.4-2.0) White Blood Count 4.9 10^3/uL (4.4-10.8) Medications Medications Dose Ordered Sig/Manuel Route Start Time Stop Time Status Last Admin Dose Admin Apixaban 5 mg BID PO 02/07/25 10:00 02/07/25 10:15 Carvedilol 6.25 mg BID PO 02/07/25 10:00 02/07/25 10:15 Diphenhydramine HCl 25 mg Q6HP PRN PO 02/07/25 14:15 02/07/25 14:20 Furosemide 40 mg BIDD PO 02/07/25 10:00 02/07/25 10:21 Potassium Chloride 10 meq BID PO 02/07/25 10:00 02/07/25 10:16 Sacubitril/ Valsartan 1 tab BID PO 02/07/25 10:00 02/07/25 10:15 Tamsulosin HCl 0.8 mg DAILY PO 02/07/25 10:00 02/07/25 10:15 Results Labs Test 02/07/25 12:05 02/07/25 02:25 02/07/25 01:57 02/07/25 01:00 Range/Units Urine Opiates Screen Neg NEGATIVE Urine Fentanyl Screen Neg NEGATIVE Urine Barbiturates Screen Neg NEGATIVE Urine Phencyclidine Screen Neg NEGATIVE Urine Amphetamines Screen Neg NEGATIVE Urine Benzodiazepines Screen Pos NEGATIVE Urine Cocaine Screen Neg NEGATIVE Urine Cannabinoids Screen Neg NEGATIVE Triglycerides Level 132 < 150 mg/dL Cholesterol Level 172 < 200 mg/dL LDL Cholesterol 125 H < 100 mg/dL HDL Cholesterol 37 L 40-59 mg/dL Thyroid Stimulating Hormone (TSH) 3.74 0.55-4.78 uIU/mL Troponin I High Sensitivity 23 </=54 ng/L White Blood Count 4.9 4.4-10.8 10^3/uL Red Blood Count 5.09 4.5-5.90 10^6/uL Hemoglobin 15.3 13.5-17.5 g/dL Hematocrit 45.7 41.0-53.0 % Mean Corpuscular Volume 89.8 80.0-100.0 fL Mean Corpuscular Hemoglobin 30.1 28.0-32.0 pg Mean Corpuscular Hemoglobin Concent 33.5 32.0-36.0 g/dL Red Cell Distribution Width 15.9 H 11.8-14.3 % Platelet Count 195 140-450 10^3/uL Mean Platelet Volume 8.3 6.9-10.8 fL Neutrophils (%) (Auto) 45.7 37.0-80.0 % Lymphocytes (%) (Auto) 28.2 10.0-50.0 % Monocytes (%) (Auto) 14.0 H 0.0-12.0 % Eosinophils (%) (Auto) 9.8 H 0.0-7.0 % Basophils (%) (Auto) 2.3 H 0.0-2.0 % Neutrophils # (Auto) 2.2 1.6-8.6 10 ^3/uL Lymphocytes # (Auto) 1.4 0.4-5.4 10 ^3/uL Monocytes # (Auto) 0.7 0-1.3 10 ^3/uL Eosinophils # (Auto) 0.5 0-0.8 10 ^3/uL Basophils # (Auto) 0.1 0-0.2 10 ^3/uL Nucleated Red Blood Cells 0.1 % Sodium Level 145 136-145 mmol/L Potassium Level 3.8 3.5-5.1 mmol/L Chloride Level 107 98-107 mmol/L Carbon Dioxide Level 28 20-31 mmol/L Anion Gap 10 5-15 Blood Urea Nitrogen 26 H 9-23 mg/dL Creatinine 1.57 H 0.700-1.30 mg/dL Glomerular Filtration Rate Calc 49 >90 mL/min BUN/Creatinine Ratio 16.6 10.0-20.0 Serum Glucose 61 L 74-106 mg/dL Lactic Acid Level 1.5 0.4-2.0 mmol/L Calcium Level 8.4 L 8.7-10.4 mg/dL Magnesium Level 2.6 1.6-2.6 mg/dL Total Bilirubin 0.2 0.2-1.0 mg/dL Aspartate Amino Transferase (AST) 29 13-40 U/L Alanine Aminotransferase (ALT) 19 7-40 U/L Alkaline Phosphatase 94 46-116 U/L B-Type Natriuretic Peptide 286.25 0-100 pg/mL Total Protein 6.4 5.7-8.2 g/dL Albumin 3.8 3.2-4.8 g/dL Plan 1. Unstable Angina Monitor EKG, cardiology consult, prn nitro for CP 2. Obesity Monitor, PPI 3. HLD Monitor, lipid panel 4. Acute on chronic systolic heart failure Monitor, cardiology consult, continue diuretics 5. Nonischemic cardiomyopathy Monitor, cardiology consult 6. Presence of ICD (Biotronik) pacemaker Monitor, cardiology consult 7. Smoker Monitor 8. Left ventricular thrombus (on Eliquis for treatment) Monitor, cardiology consult, restart home meds 9. Hypothyroid Monitor, TSH level 10. Methamphetamine abuse Monitor Plan discussed with: Patient, Other MANJULA LAN NP Feb 07, 2025 03:43
[2025-02-07] MEDS ORDERED: DOCUSATE SOD 100 MG CAP PO PRN (03:45)
[2025-02-07] MEDS ORDERED: ONDANSETRON HCL 4 MG/2 ML VIAL IV PRN (03:45)
[2025-02-07] MEDS ORDERED: NITROGLYCERIN 0.4 MG SL TAB SL PRN (03:45)
[2025-02-07] MEDS ORDERED: ACETAMINOPHEN 325 MG TAB PO PRN (03:45)
[2025-02-07] MEDS: ALBUTEROL SULF 2.5 MG/0.5ML(0.5%) NEB SOLN NEB PRN (04:01)
[2025-02-07] MEDS: LEVOTHYROXINE SODIUM 25 MCG TAB PO SCH (06:14)
[2025-02-07] MEDS: LEVOTHYROXINE SODIUM 112 MCG TAB PO SCH (06:16)
--- NOTE | 2025-02-07 06:26 | ECG ---
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
[2025-02-07] MEDS ORDERED: ENOXAPARIN SOD 40 MG/0.4 ML SYRINGE SC SCH (10:00)
[2025-02-07] MEDS: TIOTROPIUM BROMIDE MONOHYDRATE IN SCH (10:00)
[2025-02-07] MEDS: SACUBITRIL-VALSARTAN 24mg/26mg TAB PO SCH (10:15)
[2025-02-07] MEDS: TAMSULOSIN HYDROCHLORIDE 0.4 MG CAP PO SCH (10:15)
[2025-02-07] MEDS: CARVEDILOL 3.125 MG TAB PO SCH (10:15)
[2025-02-07] MEDS: APIXABAN 5 MG TAB PO SCH (10:15)
[2025-02-07] MEDS: POTASSIUM CHL 10 Meq TABLET PO SCH (10:16)
[2025-02-07] MEDS: FUROSEMIDE 40 MG TAB PO SCH (10:21)
[2025-02-07] MEDS: HYDROcodone-ACET 5/325MG TAB PO PRN (10:56)
[2025-02-07 12:59] LABS: Triglycerides 132 mg/dL (< 150)
[2025-02-07 13:01] LABS: Cholesterol 172 mg/dL (< 200)
[2025-02-07 13:02] LABS: HDL Cholesterol 37 mg/dL (40-59)
[2025-02-07 17:07] LABS: Benzodiazephine Screen, Urine Pos (NEGATIVE); Opiate Scree,Urine Neg (NEGATIVE)
[2025-02-07 17:09] LABS: Amphetamine Screen, Urine Neg (NEGATIVE); Barbiturate Scree,Urine Neg (NEGATIVE); Cannabinoid Screen, Urine Neg (NEGATIVE); Cocaine Screen, Urine Neg (NEGATIVE); Phencyclidine Screen, Urine Neg (NEGATIVE)
[2025-02-07] MEDS: TEMAZEPAM 15 MG CAP PO PRN (23:05)
[2025-02-08] VITALS (13 sets, daily range): BP systolic 91–118; BP diastolic 60–80; PULSE 74–104; RESP 16–22; TEMP 97.1–98.3; O2SAT 91–100
[2025-02-08 06:44] LABS: Hematocrit 47.7 % (41.0-53.0); Hemoglobin 15.8 g/dL (13.5-17.5); Mean Corpuscular Hemoglobin 29.8 pg (28.0-32.0); Mean Corpuscular Volume 90.0 fL (80.0-100.0); Nucleated Red Blood Cells % 0.1 %
[2025-02-08 07:19] LABS: Alanine Aminotransferase 15 U/L (7-40); Alkaline Phosphatase 65 U/L (46-116); Anion Gap 11 (5-15); BUN/Creatinine Ratio 15.4 (10.0-20.0); Calcium 9.1 mg/dL (8.7-10.4); Carbon Dioxide 25 mmol/L (20-31); Glucose 93 mg/dL (74-106); Potassium 4.1 mmol/L (3.5-5.1); Sodium 143 mmol/L (136-145); Total Protein 6.1 g/dL (5.7-8.2)
[2025-02-08 07:20] LABS: Albumin 3.6 g/dL (3.2-4.8); Bilirubin, Total 0.6 mg/dL (0.2-1.0); Blood Urea Nitrogen 23 mg/dL (9-23); Chloride 107 mmol/L (98-107)
--- NOTE | 2025-02-08 07:41 | DVHINCON2 ---
Date of service: Feb 08, 2025 History of Present Illness 64 yo M with severe NICM< hx of tobacco, drug abuse , LV thrombus admitted for sob and ADHF. his bnp is mildly elevated but better than normal. hes walking around smoking in hospital Past Medical History reviewed Family History: Alcoholism FH: arrhythmia G8 MOTHER FH: breast cancer G8 SISTER, , Cause: [place] (myocardial infarction) FH: diabetes mellitus FH: heart attack G8 FATHER, , Cause: CO (myocardial infarction) G8 BROTHER, , Cause: [place] (myocardial infarction) Family history: Cardiovascular disease G8 FATHER, , Cause: [place] (myocardial infarction), Onset:40's - 50 Family history: Diabetes mellitus G8 MOTHER, Onset:40's - 50 G8 FATHER, , Cause: CO (myocardial infarction) G8 SISTER, , Cause: [place] (myocardial infarction) Sister Allergies: Coded Allergies: Empagliflozin (Verified Allergy, Severe, 07/24/24) Morphine (Unverified Allergy, Unknown, 04/18/22) SEVERE BRADYCARDIA Sulfamethoxazole w/Trimethoprim (Verified Allergy, Unknown, 11/06/24) Home Meds Active Scripts Aspirin (Aspirin Low Dose) 81 Mg Tab, 81 MG PO DAILY for 30 Days, #30 TAB Prov:MANJULA LAN WARDROBE COORDINATOR 07/12/24 Potassium Chloride (Potassium Chloride ER) 10 Meq Tab, 10 MEQ PO BID for 30 Da ys, #60 TAB Prov:MANJULA LAN WARDROBE COORDINATOR 07/11/24 Furosemide (Lasix) 40 Mg Tab, 40 MG PO BID for 30 Days, #60 TAB Prov:MANJULA LAN WARDROBE COORDINATOR 07/11/24 Sacubitril-Valsartan (Entresto 24-26 mg) 1 Tab Tab, 1 TAB PO BID, #180 TAB Prov:EUN LI MD 09/16/23 Reported Medications Apixaban Base (ELIQUIS) 5 Mg Tab, 1 TAB PO BID 01/16/25 Tiotropium [place] Monohydrate (Spiriva Respimat) 1.25 Mcg/Act Aer, 2 PUFF INH DAILY for 90 Days, #12 12/22/24 Carvedilol (Carvedilol) 6.25 Mg Tab, 1 TAB PO BID for 90 Days, #180 12/22/24 Dapagliflozin Propanediol (Farxiga) 10 Mg Tab, 10 MG PO DAILY, TAB 12/22/24 Levothyroxine Sodium (Levothyroxine Sodium) 137 Mcg Tab, 1 TAB PO DAILY for 70 Days, #70 07/25/24 Tamsulosin Hcl (Tamsulosin Hcl) 0.4 Mg Cap, 0.8 MG PO DAILY AFTER MEAL for 180 Days, #90 09/14/23 Current Medications Current Medications Medications (Trade) Dose Ordered Sig/Manuel Route PRN Reason Start Time Stop Time Status Last Admin Enoxaparin Sodium (Lovenox) 40 mg DAILY SC 02/07/25 10:00 02/07/25 03:46 DC Apixaban (Eliquis) 5 mg BID PO 02/07/25 10:00 02/07/25 21:51 Furosemide (Lasix Tablet) 40 mg BIDD PO 02/07/25 10:00 02/08/25 06:15 Sacubitril/ Valsartan (Entresto 24-26 Mg tab) 1 tab BID PO 02/07/25 10:00 02/07/25 21:53 Tamsulosin HCl (Flomax) 0.8 mg DAILY PO 02/07/25 10:00 02/07/25 10:15 Carvedilol (Coreg Tablet) 6.25 mg BID PO 02/07/25 10:00 02/07/25 10:15 Patient Own Medication 10 mg DAILY PO 02/07/25 10:00 Potassium Chloride (Klor-Con Tablet) 10 meq BID PO 02/07/25 10:00 02/07/25 21:50 Patient Own Medication 2 puff DAILY IN 02/07/25 10:00 Diphenhydramine HCl (Benadryl Capsule) 25 mg Q6HP PRN PO FOR ITCHING 02/07/25 14:15 02/07/25 21:50 Alprazolam (Xanax Tablet) 0.5 mg Q8HPRN PRN PO ANXIETY 02/07/25 17:45 Review of Systems 10 pt ros otherwise negative Vital Signs Vital Signs Date Time Temp Pulse Resp B/P (MAP) Pulse Ox O2 Delivery O2 Flow Rate FiO2 02/08/25 06:15 114/78 02/08/25 05:00 97.1 74 19 93 97.1 02/07/25 20:25 Nasal Cannula 2.0 02/07/25 20:25 28 Physical Exam nad s1 s2 rrr ctab soft nt/nd no edema Labs/Diagnostic Data Labs Test 02/08/25 04:50 02/07/25 12:05 02/07/25 02:25 02/07/25 01:57 Range/Units White Blood Count 5.1 4.4-10.8 10^3/uL Red Blood Count 5.30 4.5-5.90 10^6/uL Hemoglobin 15.8 13.5-17.5 g/dL Hematocrit 47.7 41.0-53.0 % Mean Corpuscular Volume 90.0 80.0-100.0 fL Mean Corpuscular Hemoglobin 29.8 28.0-32.0 pg Mean Corpuscular Hemoglobin Concent 33.1 32.0-36.0 g/dL Red Cell Distribution Width 16.0 H 11.8-14.3 % Platelet Count 198 140-450 10^3/uL Mean Platelet Volume 8.6 6.9-10.8 fL Neutrophils (%) (Auto) 56.0 37.0-80.0 % Lymphocytes (%) (Auto) 23.2 10.0-50.0 % Monocytes (%) (Auto) 11.5 0.0-12.0 % Eosinophils (%) (Auto) 8.0 H 0.0-7.0 % Basophils (%) (Auto) 1.3 0.0-2.0 % Neutrophils # (Auto) 2.8 1.6-8.6 10 ^3/uL Lymphocytes # (Auto) 1.2 0.4-5.4 10 ^3/uL Monocytes # (Auto) 0.6 0-1.3 10 ^3/uL Eosinophils # (Auto) 0.4 0-0.8 10 ^3/uL Basophils # (Auto) 0.1 0-0.2 10 ^3/uL Nucleated Red Blood Cells 0.1 % Sodium Level 143 136-145 mmol/L Potassium Level 4.1 3.5-5.1 mmol/L Chloride Level 107 98-107 mmol/L Carbon Dioxide Level 25 20-31 mmol/L Anion Gap 11 5-15 Blood Urea Nitrogen 23 9-23 mg/dL Creatinine 1.49 H 0.700-1.30 mg/dL Glomerular Filtration Rate Calc 52 >90 mL/min BUN/Creatinine Ratio 15.4 10.0-20.0 Serum Glucose 93 74-106 mg/dL Calcium Level 9.1 8.7-10.4 mg/dL Total Bilirubin 0.6 0.2-1.0 mg/dL Aspartate Amino Transferase (AST) 23 13-40 U/L Alanine Aminotransferase (ALT) 15 7-40 U/L Alkaline Phosphatase 65 46-116 U/L Total Protein 6.1 5.7-8.2 g/dL Albumin 3.6 3.2-4.8 g/dL Urine Opiates Screen Neg NEGATIVE Urine Fentanyl Screen Neg NEGATIVE Urine Barbiturates Screen Neg NEGATIVE Urine Phencyclidine Screen Neg NEGATIVE Urine Amphetamines Screen Neg NEGATIVE Urine Benzodiazepines Screen Pos NEGATIVE Urine Cocaine Screen Neg NEGATIVE Urine Cannabinoids Screen Neg NEGATIVE Triglycerides Level 132 < 150 mg/dL Cholesterol Level 172 < 200 mg/dL LDL Cholesterol 125 H < 100 mg/dL HDL Cholesterol 37 L 40-59 mg/dL Thyroid Stimulating Hormone (TSH) 3.74 0.55-4.78 uIU/mL Troponin I High Sensitivity 23 </=54 ng/L Test 02/07/25 01:00 Range/Units Lactic Acid Level 1.5 0.4-2.0 mmol/L Magnesium Level 2.6 1.6-2.6 mg/dL B-Type Natriuretic Peptide 286.25 0-100 pg/mL Microbiology Date/Time Source Procedure Growth Status 02/07/25 02:24 Blood Blood Culture - Preliminary NO GROWTH AFTER 24 HOURS OF INCUBATION. Resulted Assessment acute on chronic nyha class III hf ckd htn hx of meth abuse tobacco Plan/Recommendation cont hf meds iv lasix bnp is marginally up avoid drugs needs to stop smoknig Plan discussed with: Patient DEREK SERRANO MD Feb 08, 2025 07:41
[2025-02-08] MEDS: ALPRAZolam 0.5 MG TAB PO PRN ×2 (08:51→15:04)
[2025-02-08] MEDS: NITROGLYCERIN 0.4 MG SL TAB SL PRN (09:09)
--- NOTE | 2025-02-08 10:03 | DVHPN2 ---
Reviewed: Care Plan, H&P, Labs, Medications, Previous Orders, Radiology Changes from previous H/P or p: No Changes Objective Vitals Vital Signs Date Time Temp Pulse Resp B/P (MAP) Pulse Ox O2 Delivery O2 Flow Rate FiO2 02/08/25 09:09 102/61 02/08/25 05:00 97.1 74 19 93 97.1 02/07/25 20:25 Nasal Cannula 2.0 02/07/25 20:25 28 Intake/Output Intake and Output 02/08/25 07:00 Intake Total 550 ml Output Total 0 ml Balance 550 ml Intake Oral 550 ml Output Urine Total 0 ml # Voids 5 Medications Current Medications Medications Dose Ordered Sig/Manuel Route Start Time Stop Time Status Last Admin Dose Admin Acetaminophen/ Hydrocodone Bitart 1 tab Q4HP PRN PO 02/07/25 03:45 02/07/25 10:56 1 TAB Temazepam 15 mg QHSP PRN PO 02/07/25 03:45 02/07/25 23:05 15 MG Ondansetron HCl 4 mg Q4HP PRN IV 02/07/25 03:45 Docusate Sodium 100 mg BIDPRN PRN PO 02/07/25 03:45 Acetaminophen 650 mg Q6HP PRN PO 02/07/25 03:45 Nitroglycerin 0.4 mg Q5MIN PRN SL 02/07/25 03:45 02/08/25 09:09 0.4 MG Albuterol 2.5 mg Q4HP PRN NEB 02/07/25 03:45 02/07/25 20:25 2.5 MG Apixaban 5 mg BID PO 02/07/25 10:00 02/07/25 21:51 5 MG Furosemide 40 mg BIDD PO 02/07/25 10:00 02/08/25 06:15 40 MG Sacubitril/ Valsartan 1 tab BID PO 02/07/25 10:00 02/07/25 21:53 1 TAB Tamsulosin HCl 0.8 mg DAILY PO 02/07/25 10:00 02/07/25 10:15 0.8 MG Carvedilol 6.25 mg BID PO 02/07/25 10:00 02/07/25 10:15 6.25 MG Patient Own Medication 10 mg DAILY PO 02/07/25 10:00 Levothyroxine Sodium 112 mcg QAM@0600 PO 02/07/25 06:00 02/08/25 06:15 112 MCG Potassium Chloride 10 meq BID PO 02/07/25 10:00 02/07/25 21:50 10 MEQ Patient Own Medication 2 puff DAILY IN 02/07/25 10:00 Levothyroxine Sodium 25 mcg QAM@0600 PO 02/07/25 06:00 02/08/25 06:15 25 MCG Diphenhydramine HCl 25 mg Q6HP PRN PO 02/07/25 14:15 02/07/25 21:50 25 MG Alprazolam 1 mg Q8HPRN PRN PO 02/08/25 10:00 UNV Laboratory Results Laboratory Tests 02/08/25 04:50 Chemistry Test 02/08/25 04:50 Albumin 3.6 g/dL (3.2-4.8) Calcium Level 9.1 mg/dL (8.7-10.4) Total Protein 6.1 g/dL (5.7-8.2) LFT Test 02/08/25 04:50 Alanine Aminotransferase (ALT) 15 U/L (7-40) Alkaline Phosphatase 65 U/L (46-116) Aspartate Amino Transferase (AST) 23 U/L (13-40) Total Bilirubin 0.6 mg/dL (0.2-1.0) Microbiology Microbiology Date/Time Source Procedure Growth Status 02/07/25 02:24 Blood Blood Culture - Preliminary NO GROWTH AFTER 24 HOURS OF INCUBATION. Resulted Labs and/or images reviewed: Labs reviewed by me, Image(s) reviewed by me Assessment/Plan Assessment/Plan Taken over from Nurse practitioner Kristen Lo 1. Unstable Angina Monitor EKG, cardiology consult for DR Montalvo, prn nitro for CP 2. Obesity Monitor, PPI 3. HLD Monitor, lipid panel 4. Acute on chronic systolic heart failure Monitor, cardiology consult, continue diuretics 5. Nonischemic cardiomyopathy Monitor, cardiology consult 6. Presence of ICD (Biotronik) pacemaker Monitor, cardiology consult 7. Smoker Monitor 8. Left ventricular thrombus (on Eliquis for treatment) Monitor, cardiology consult, restart home meds 9. Hypothyroid Monitor, TSH level 10. Methamphetamine abuse counseling 11: Chronic current smoker: Counseling Time Spent 65 minutes Advanced care planning time 20 minutes Patient is full code Sister Arcelia at bedside Plan discussed with: Patient My Orders Orders - EUN LI MD Procedure Category Date Status Time Alprazolam Tablet PHA 02/08/25 Transmitted (Xanax Tablet) 10:[address] 02/08/25 Logged 09:58 Date of Service: Feb 08, 2025 Billing Provider: EUN LI MD Common Visit Codes: [id number] CARE 30-74 MIN EUN LI MD Feb 08, 2025 10:03
--- NOTE | 2025-02-08 13:35 | DVH ---
Procedure: CT CHEST WITH CONTRAST Reason for study/Clinical History: Left ventricular thrombus on Eliquis Comparison Study: XY CHEST XRAY 1 VIEW on DOS: 02/07/25, XR CHEST 1 VIEW on DOS: 10/30/24, XR CHEST 1 V IEW on DOS: 10/30/24, XR CHEST 2 VIEWS on DOS: 10/27/24, CT CHEST LUNG CANCER SCREEN BASELINE / ANNUAL on DOS: 10/13/24 Exam Date: 02/08/2025 11:16 AM Radiation Dose Information: CT Dose: CTDI volume is 16.11 mGy. Dose-length product is 608.15 mGy*cm TECHNIQUE: After the uneventful administration of intravenous contrast intravenously, CT imaging was performed through the chest. Coronal and sagittal reformations were performed by the technologist. FINDINGS: Lower Neck: Visualized portions of the thyroid gland are unremarkable. Aorta and Vasculature: Vascular calcifications of the aorta. Lymph Nodes: No enlarged intrathoracic lymph nodes. Mediastinum: Cardiomegaly. No pericardial effusion. The esophagus is unremarkable. Lungs: Mild peribronchial thickening and tree-in-bud nodularity in the right upper lobe. Dependent at electasis. No focal consolidation, pleural effusion or significant pneumothorax. No suspicious pulmon kendy nodule or mass. Musculoskeletal: Left chest wall pacemaker. No acute osseous abnormality. Upper abdomen: Hepatic steatosis. Hepatomegaly. IMPRESSION: No evidence of left ventricular thrombus. Mild peribronchial thickening and tree-in-bud nodularity in the right upper lobe may be infectious or inflammatory. Cardiomegaly. Hepatic steatosis and hepatomegaly.
[2025-02-09] VITALS (12 sets, daily range): BP systolic 89–126; BP diastolic 54–91; PULSE 67–108; RESP 16–19; TEMP 97.7–98.5; O2SAT 92–97
--- NOTE | 2025-02-09 08:17 | DVHPN2 ---
Reviewed: Care Plan, H&P, Labs, Medications, Previous Orders, Radiology Changes from previous H/P or p: No Changes Objective Vitals Vital Signs Date Time Temp Pulse Resp B/P (MAP) Pulse Ox O2 Delivery O2 Flow Rate FiO2 02/09/25 07:53 18 Room Air* 0 21 02/09/25 05:20 98.4 101 122/79 (93) 95 98.4 Intake/Output Intake and Output 02/09/25 07:00 Intake Total 640 ml Output Total 3 ml Balance 637 ml Intake Oral 640 ml Stool Total 3 ml # Voids 5 Medications Current Medications Medications Dose Ordered Sig/Manuel Route Start Time Stop Time Status Last Admin Dose Admin Acetaminophen/ Hydrocodone Bitart 1 tab Q4HP PRN PO 02/07/25 03:45 02/09/25 07:45 1 TAB Temazepam 15 mg QHSP PRN PO 02/07/25 03:45 02/08/25 21:17 15 MG Ondansetron HCl 4 mg Q4HP PRN IV 02/07/25 03:45 Docusate Sodium 100 mg BIDPRN PRN PO 02/07/25 03:45 Acetaminophen 650 mg Q6HP PRN PO 02/07/25 03:45 Nitroglycerin 0.4 mg Q5MIN PRN SL 02/07/25 03:45 02/08/25 09:09 0.4 MG Albuterol 2.5 mg Q4HP PRN NEB 02/07/25 03:45 02/08/25 22:44 2.5 MG Apixaban 5 mg BID PO 02/07/25 10:00 02/08/25 21:17 5 MG Furosemide 40 mg BIDD PO 02/07/25 10:00 02/09/25 05:03 40 MG Sacubitril/ Valsartan 1 tab BID PO 02/07/25 10:00 02/08/25 21:16 1 TAB Tamsulosin HCl 0.8 mg DAILY PO 02/07/25 10:00 02/08/25 10:12 0.8 MG Carvedilol 6.25 mg BID PO 02/07/25 10:00 02/07/25 10:15 6.25 MG Patient Own Medication 10 mg DAILY PO 02/07/25 10:00 Levothyroxine Sodium 112 mcg QAM@0600 PO 02/07/25 06:00 02/09/25 04:59 112 MCG Potassium Chloride 10 meq BID PO 02/07/25 10:00 02/08/25 21:17 10 MEQ Patient Own Medication 2 puff DAILY IN 02/07/25 10:00 Levothyroxine Sodium 25 mcg QAM@0600 PO 02/07/25 06:00 02/09/25 04:59 25 MCG Diphenhydramine HCl 25 mg Q6HP PRN PO 02/07/25 14:15 02/07/25 21:50 25 MG Alprazolam 1 mg Q8HPRN PRN PO 02/08/25 10:00 02/09/25 05:03 1 MG Laboratory Results Laboratory Tests 02/08/25 04:50 Microbiology Microbiology Date/Time Source Procedure Growth Status 02/07/25 02:24 Blood Blood Culture - Preliminary NO GROWTH AFTER 48 HOURS OF INCUBATION. Resulted Labs and/or images reviewed: Labs reviewed by me, Image(s) reviewed by me Assessment/Plan Assessment/Plan Taken over from Nurse practitioner Kristen Lo 1. Unstable Angina Monitor EKG, cardiology consult for DR Selvin waddell, prn nitro for CP 2. Obesity Monitor, PPI 3. HLD Monitor, lipid panel 4. Acute on chronic systolic heart failure Monitor, cardiology consult, continue diuretics 5. Nonischemic cardiomyopathy Monitor, cardiology consult 6. Presence of ICD (Biotronik) pacemaker Monitor, cardiology consult 7. Smoker Monitor 8. Left ventricular thrombus (on Eliquis for treatment) Monitor, cardiology consult, restart home meds 9. Hypothyroid Monitor, TSH level 10. Methamphetamine abuse counseling 11: Chronic current smoker: Counseling Time Spent 55 minutes Advanced care planning time 20 minutes Patient is full code Sister Arcelia at bedside Plan discussed with: Patient My Orders Orders - EUN LI MD Procedure Category Date Status Time Alprazolam Tablet PHA 02/08/25 In Process (Xanax Tablet) 10:[address] 02/08/25 Resulted 09:58 Date of Service: Feb 09, 2025 Billing Provider: EUN LI MD Common Visit Codes: [id number] INP/OBS CARE(HIGH) EUN LI MD Feb 09, 2025 08:17
--- NOTE | 2025-02-09 09:17 | ECG ---
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
[2025-02-09 11:29] LABS: COVID19 ANTIGEN SOFIA FIA NEGATIVE (NEGATIVE)
--- NOTE | 2025-02-09 14:54 | DVHPN2 ---
Progress Note Date Seen: Feb 09, 2025 Medical Necessity Reason Pt with a Central, PICC or Fol: No Subjective Patient reports: Feels better Objective vital signs Vital Sign Date Time Temp Pulse Resp B/P (MAP) Pulse Ox O2 Delivery O2 Flow Rate FiO2 02/09/25 13:00 98.2 67 16 95/69 (78) 93 98.2 02/09/25 10:00 Room Air 0.0 02/09/25 10:00 21 Total Intake and Output 02/08/25 02/08/25 02/09/25 15:00 23:00 07:00 Intake Total 240 ml 400 ml Output Total 3 ml Balance 237 ml 400 ml medications Current Medications Medications Dose Ordered Sig/Manuel Route Start Time Stop Time Status Last Admin Dose Admin Acetaminophen/ Hydrocodone Bitart 1 tab Q4HP PRN PO 02/07/25 03:45 02/09/25 07:45 1 TAB Temazepam 15 mg QHSP PRN PO 02/07/25 03:45 02/08/25 21:17 15 MG Ondansetron HCl 4 mg Q4HP PRN IV 02/07/25 03:45 Docusate Sodium 100 mg BIDPRN PRN PO 02/07/25 03:45 Acetaminophen 650 mg Q6HP PRN PO 02/07/25 03:45 Nitroglycerin 0.4 mg Q5MIN PRN SL 02/07/25 03:45 02/08/25 09:09 0.4 MG Albuterol 2.5 mg Q4HP PRN NEB 02/07/25 03:45 02/08/25 22:44 2.5 MG Apixaban 5 mg BID PO 02/07/25 10:00 02/09/25 09:38 5 MG Furosemide 40 mg BIDD PO 02/07/25 10:00 02/09/25 05:03 40 MG Sacubitril/ Valsartan 1 tab BID PO 02/07/25 10:00 02/09/25 09:24 1 TAB Tamsulosin HCl 0.8 mg DAILY PO 02/07/25 10:00 02/09/25 09:24 0.8 MG Carvedilol 6.25 mg BID PO 02/07/25 10:00 02/07/25 10:15 6.25 MG Patient Own Medication 10 mg DAILY PO 02/07/25 10:00 02/09/25 09:25 10 MG Levothyroxine Sodium 112 mcg QAM@0600 PO 02/07/25 06:00 02/09/25 04:59 112 MCG Potassium Chloride 10 meq BID PO 02/07/25 10:00 02/09/25 09:24 10 MEQ Patient Own Medication 2 puff DAILY IN 02/07/25 10:00 Levothyroxine Sodium 25 mcg QAM@0600 PO 02/07/25 06:00 02/09/25 04:59 25 MCG Diphenhydramine HCl 25 mg Q6HP PRN PO 02/07/25 14:15 02/07/25 21:50 25 MG Alprazolam 1 mg Q8HPRN PRN PO 02/08/25 10:00 02/09/25 14:07 1 MG Examination: GENERAL:Abnormal, HEENT:Abnormal, LUNGS:Abnormal, CVS:Abnormal, ABDOMEN:Abnormal laboratory and microbiology Laboratory Tests 02/08/25 04:50 Test 02/08/25 04:50 Range/Units Serum Glucose 93 74-106 mg/dL Microbiology Date/Time Source Procedure Growth Status 02/08/25 08:15 Nose MRSA Screen - Final Complete 02/07/25 02:24 Blood Blood Culture - Preliminary NO GROWTH AFTER 48 HOURS OF INCUBATION. Resulted Problem List/Assessment/Plan Problem List/Assessment/Plan nicm lv throbus non compliance tobacco abuse nyha class III hf ckd meth abuse iv lasix dc home when stable cont eliquis x 3 more months bp meds HF meds, bb, sglt Plan discussed with: Patient Date of Service: Feb 09, 2025 Billing Provider: DEREK SERRANO MD Common Visit Codes: NOT BILLABLE DEREK SERRANO MD Feb 09, 2025 14:54
--- NOTE | 2025-02-09 15:26 | DVHSR ---
APPROVED REPORT EXAM: Two-dimensional and M-mode echocardiogram with Doppler and color Doppler. INDICATION Evaluate LV thrombus RISK FACTORS Height: 5'8", Weight: 201 DIMENSIONS LVDd6.0 (3.8-5.7cm)LA (2D) (1.9-4.0cm)Aortic Root (2.0-3.7cm) LVDs5.8 (2.5-4.0cm)LA (MM) (1.9-4.0cm)Aortic Cusp Exc (1.5-2.0cm) EF (%) 7.0 (55-70%)Rt. Atrium (1.9-4.0cm)Asc. Aorta cm Mitral Valve MitralMitral Stenosis E/A ratio0.02D MVAcm2 Other Information Quality : Technically LimitedRhythm : Technically limited study due to body habitus. Conclusion lvef <15% no obvious thrombus idenitifed
[2025-02-10] VITALS (10 sets, daily range): BP systolic 97–108; BP diastolic 54–75; PULSE 66–93; RESP 16–22; TEMP 98–98.8; O2SAT 92–100
--- NOTE | 2025-02-10 07:46 | DVHPN2 ---
Reviewed: Care Plan, H&P, Labs, Medications, Previous Orders, Radiology Changes from previous H/P or p: No Changes Objective Vitals Vital Signs Date Time Temp Pulse Resp B/P (MAP) Pulse Ox O2 Delivery O2 Flow Rate FiO2 02/10/25 06:00 115/81 02/10/25 04:48 98.8 66 18 92 98.8 02/10/25 01:01 Room Air* 0 21 Intake/Output Intake and Output 02/10/25 07:00 Intake Total 1775 ml Balance 1775 ml Intake Oral 1775 ml # Voids 12 # Bowel Movements 1 Medications Current Medications Medications Dose Ordered Sig/Manuel Route Start Time Stop Time Status Last Admin Dose Admin Acetaminophen/ Hydrocodone Bitart 1 tab Q4HP PRN PO 02/07/25 03:45 02/10/25 06:53 1 TAB Temazepam 15 mg QHSP PRN PO 02/07/25 03:45 02/08/25 21:17 15 MG Ondansetron HCl 4 mg Q4HP PRN IV 02/07/25 03:45 Docusate Sodium 100 mg BIDPRN PRN PO 02/07/25 03:45 Acetaminophen 650 mg Q6HP PRN PO 02/07/25 03:45 Nitroglycerin 0.4 mg Q5MIN PRN SL 02/07/25 03:45 02/08/25 09:09 0.4 MG Albuterol 2.5 mg Q4HP PRN NEB 02/07/25 03:45 02/10/25 01:01 2.5 MG Apixaban 5 mg BID PO 02/07/25 10:00 02/09/25 21:13 5 MG Furosemide 40 mg BIDD PO 02/07/25 10:00 02/09/25 05:03 40 MG Sacubitril/ Valsartan 1 tab BID PO 02/07/25 10:00 02/09/25 23:36 1 TAB Tamsulosin HCl 0.8 mg DAILY PO 02/07/25 10:00 02/09/25 09:24 0.8 MG Carvedilol 6.25 mg BID PO 02/07/25 10:00 02/07/25 10:15 6.25 MG Patient Own Medication 10 mg DAILY PO 02/07/25 10:00 02/09/25 09:25 10 MG Levothyroxine Sodium 112 mcg QAM@0600 PO 02/07/25 06:00 02/10/25 06:54 112 MCG Potassium Chloride 10 meq BID PO 02/07/25 10:00 02/09/25 21:14 10 MEQ Patient Own Medication 2 puff DAILY IN 02/07/25 10:00 Levothyroxine Sodium 25 mcg QAM@0600 PO 02/07/25 06:00 02/10/25 06:54 25 MCG Diphenhydramine HCl 25 mg Q6HP PRN PO 02/07/25 14:15 02/07/25 21:50 25 MG Alprazolam 1 mg Q8HPRN PRN PO 02/08/25 10:00 02/09/25 23:37 1 MG Laboratory Results Laboratory Tests 02/08/25 04:50 Microbiology Microbiology Date/Time Source Procedure Growth Status 02/08/25 08:15 Nose MRSA Screen - Final Complete 02/07/25 02:24 Blood Blood Culture - Preliminary NO GROWTH AFTER 72 HOURS OF INCUBATION. Resulted Labs and/or images reviewed: Labs reviewed by me, Image(s) reviewed by me Assessment/Plan Assessment/Plan Taken over from Nurse practitioner Kristen Lo 1. Unstable Angina Monitor EKG, cardiology consult for DR Selvin ward, prn nitro for CP 2. Obesity Monitor, PPI 3. HLD Monitor, lipid panel 4. Acute on chronic systolic heart failure Monitor, cardiology consult, continue diuretics 5. Nonischemic cardiomyopathy Monitor, cardiology consult 6. Presence of ICD (Biotronik) pacemaker Monitor, cardiology consult 7. Smoker Monitor 8. Left ventricular thrombus (on Eliquis for treatment) Monitor, cardiology consult, restart home meds 9. Hypothyroid Monitor, TSH level 10. Methamphetamine abuse counseling 11: Chronic current smoker: Counseling Time Spent 55 minutes Advanced care planning time 20 minutes Patient is full code Sister Arcelia at bedside Patient feels better and being discharged back to intermediate facility Plan discussed with: Patient My Orders Orders - EUN LI MD Procedure Category Date Status Time Echo 2d Mode Cardiac US 02/09/25 Resulted DOP 08:10 Date of Service: Feb 10, 2025 Billing Provider: EUN LI MD Common Visit Codes: [id number] INP/OBS CARE(HIGH) EUN LI MD Feb 10, 2025 07:46
--- NOTE | 2025-02-10 07:50 | DVHDS2 ---
Discharge Summary Date of Admission Feb 07, 2025 at 03:36 Date of Discharge: Feb 10, 2025 Admitting Diagnosis Chest pain Wounds: None Labs/Diagnostic Data: Laboratory Results Test 02/10/25 03:12 02/09/25 09:00 02/08/25 04:50 02/07/25 12:05 Troponin I High Sensitivity 26 ng/L (</=54) SARS-CoV-2 Antigen (Rapid) Negative (NEGATIVE) White Blood Count 5.1 10^3/uL (4.4-10.8) Red Blood Count 5.30 10^6/uL (4.5-5.90) Hemoglobin 15.8 g/dL (13.5-17.5) Hematocrit 47.7 % (41.0-53.0) Mean Corpuscular Volume 90.0 fL (80.0-100.0) Mean Corpuscular Hemoglobin 29.8 pg (28.0-32.0) Mean Corpuscular Hemoglobin Concent 33.1 g/dL (32.0-36.0) Red Cell Distribution Width 16.0 % (11.8-14.3) Platelet Count 198 10^3/uL (140-450) Mean Platelet Volume 8.6 fL (6.9-10.8) Neutrophils (%) (Auto) 56.0 % (37.0-80.0) Lymphocytes (%) (Auto) 23.2 % (10.0-50.0) Monocytes (%) (Auto) 11.5 % (0.0-12.0) Eosinophils (%) (Auto) 8.0 % (0.0-7.0) Basophils (%) (Auto) 1.3 % (0.0-2.0) Neutrophils # (Auto) 2.8 10 ^3/uL (1.6-8.6) Lymphocytes # (Auto) 1.2 10 ^3/uL (0.4-5.4) Monocytes # (Auto) 0.6 10 ^3/uL (0-1.3) Eosinophils # (Auto) 0.4 10 ^3/uL (0-0.8) Basophils # (Auto) 0.1 10 ^3/uL (0-0.2) Nucleated Red Blood Cells 0.1 % Sodium Level 143 mmol/L (136-145) Potassium Level 4.1 mmol/L (3.5-5.1) Chloride Level 107 mmol/L (98-107) Carbon Dioxide Level 25 mmol/L (20-31) Anion Gap 11 (5-15) Blood Urea Nitrogen 23 mg/dL (9-23) Creatinine 1.49 mg/dL (0.700-1.30) Glomerular Filtration Rate Calc 52 mL/min (>90) BUN/Creatinine Ratio 15.4 (10.0-20.0) Serum Glucose 93 mg/dL (74-106) Calcium Level 9.1 mg/dL (8.7-10.4) Total Bilirubin 0.6 mg/dL (0.2-1.0) Aspartate Amino Transferase (AST) 23 U/L (13-40) Alanine Aminotransferase (ALT) 15 U/L (7-40) Alkaline Phosphatase 65 U/L (46-116) Total Protein 6.1 g/dL (5.7-8.2) Albumin 3.6 g/dL (3.2-4.8) Urine Opiates Screen Neg (NEGATIVE) Urine Fentanyl Screen Neg (NEGATIVE) Urine Barbiturates Screen Neg (NEGATIVE) Urine Phencyclidine Screen Neg (NEGATIVE) Urine Amphetamines Screen Neg (NEGATIVE) Urine Benzodiazepines Screen Pos (NEGATIVE) Urine Cocaine Screen Neg (NEGATIVE) Urine Cannabinoids Screen Neg (NEGATIVE) Test 02/07/25 02:25 02/07/25 01:00 Triglycerides Level 132 mg/dL (< 150) Cholesterol Level 172 mg/dL (< 200) LDL Cholesterol 125 mg/dL (< 100) HDL Cholesterol 37 mg/dL (40-59) Thyroid Stimulating Hormone (TSH) 3.74 uIU/mL (0.55-4.78) Lactic Acid Level 1.5 mmol/L (0.4-2.0) Magnesium Level 2.6 mg/dL (1.6-2.6) B-Type Natriuretic Peptide 286.25 pg/mL (0-100) Other Laboratory Tests 02/08/25 04:50 Brief Hx & Hospital Course: 64-year-old male with a history of hypercholesterolemia congestive heart failure nonischemic cardiomyopathy status post pacemaker chronic current smoker left ventricular thrombus on Eliquis hypothyroidism chronic meth abuser noncompliant transferred from care home facility for chest pain. Troponin negative. Treated per ACS protocol previous all medications continued for comorbid conditions seen by Cardiology Dr. Montalvo advised to continue the medications no further cardiac workup Eliquis to be continued for three more months for left ventricular thrombus patient's daughter advised accordingly he was also given nicotine patch for quitting smoking and advised strongly quit smoking. The patient being discharged to care home facility. General condition poor at the time of discharge but stable Consults/Reason for consult Cardiology Dr. Montalvo Operations or Procedures Echocardiogram Condition at Discharge: Fair Final Diagnosis/Problems List 1. Unstable Angina Monitor EKG, cardiology consult for DR Montalvo apprecited, prn nitro for CP 2. Obesity Monitor, PPI 3. HLD Monitor, lipid panel 4. Acute on chronic systolic heart failure Monitor, cardiology consult, continue diuretics 5. Nonischemic cardiomyopathy Monitor, cardiology consult 6. Presence of ICD (Biotronik) pacemaker Monitor, cardiology consult 7. Smoker Monitor 8. Left ventricular thrombus (on Eliquis for treatment) Monitor, cardiology consult, restart home meds 9. Hypothyroid Monitor, TSH level 10. Methamphetamine abuse counseling 11: Chronic current smoker: Counseling Discharge Disposition: Residential Facility Discharge Instruct/Medications Diet: Cardiac 2g Na,low cholest Activity: Light activity Follow Up/Referral: Follow up with the long-term Medications: see list Scheduled Apixaban Base (Eliquis), 1 TAB PO BID, (Reported) Aspirin (Aspirin Low Dose), 81 MG PO DAILY Carvedilol (Carvedilol), 1 TAB PO BID, (Reported) Dapagliflozin Propanediol (Farxiga), 10 MG PO DAILY, (Reported) Furosemide (Lasix), 40 MG PO BID Levothyroxine Sodium (Levothyroxine Sodium), 1 TAB PO DAILY, (Reported) Potassium Chloride (Potassium Chloride ER), 10 MEQ PO BID Sacubitril-Valsartan (Entresto 24-26 mg), 1 TAB PO BID Tamsulosin Hcl (Tamsulosin Hcl), 0.8 MG PO DAILY AFTER MEAL, (Reported) Tiotropium [place] Monohydrate (Spiriva Respimat), 2 PUFF INH DAILY, (Reported) 35 (Time taken for discharge summary 39 minutes) Discharge Statement: "Patient was advised to return to the ER or call 911 if any headaches, dizziness, shortness of breath, chest pain, abdominal pain, bleeding, fevers, or worsening of medical condition. Patient was counseled about treatment plan, medications, possible side effects, patientverbalized understanding. All questions were answered to the best of my ability. This discharge took greater then 30 minutes in planning, reviewing documentation, counseling the patient, and discussing with other team members." ASSESSMENT ASSESSMENT Hospital Course Improved marginally Assessment 1. Unstable Angina Monitor EKG, cardiology consult for DR Selvin ward, prn nitro for CP 2. Obesity Monitor, PPI 3. HLD Monitor, lipid panel 4. Acute on chronic systolic heart failure Monitor, cardiology consult, continue diuretics 5. Nonischemic cardiomyopathy Monitor, cardiology consult 6. Presence of ICD (Biotronik) pacemaker Monitor, cardiology consult 7. Smoker Monitor 8. Left ventricular thrombus (on Eliquis for treatment) Monitor, cardiology consult, restart home meds 9. Hypothyroid Monitor, TSH level 10. Methamphetamine abuse counseling 11: Chronic current smoker: Counseling Date of Service: Feb 10, 2025 Billing Provider: EUN LI MD Common Visit Codes: [id number] INP/OBS CARE(HIGH) EUN LI MD Feb 10, 2025 07:50
[2025-02-10] MEDS: NICOTINE 21MG/24 HR TOPICAL PATCH TD SCH (09:45)
--- NOTE | 2025-02-11 10:40 | ECG ---
[facility] Test Date: 2025-02-10 Test Time: 01:33:49 Pat Name: XIAO HERNANDEZ Department: Respiratoy Room: 0214T B Gender: M Jamb Cutter: : 1960 Requested By: EUN LI Order Number: [id number] Reading MD: Measurements Intervals [place] Rate: 74 P: 33 HI: 189 QRS: -50 QRSD: 132 T: 117 QT: 418 QTc: 464 Interpretive Statements Sinus rhythm Ventricular premature complex Left bundle branch block Please click the below link to view image of tracing.
== END 2025-02-10 15:31 | DRG 291 ==
LOC: ER 00:02 → EDBD 00:02 → OVERFLOW 03:36 → TELE-CENTR 17:13
PROVIDERS: ADMIT Family Medicine; ATTEND Family Medicine
DX: I13.0 Hypertensive heart and chronic kidney disease with heart failure and stage 1 through stage 4 chronic kidney disease, or unspecified chronic kidney disease (principal); I50.23 Acute on chronic systolic (congestive) heart failure; N17.9 Acute kidney failure, unspecified; I25.110 Atherosclerotic heart disease of native coronary artery with unstable angina pectoris; I42.8 Other cardiomyopathies; E03.9 Hypothyroidism, unspecified; E66.9 Obesity, unspecified; F15.10 Other stimulant abuse, uncomplicated; Z20.822 Contact with and (suspected) exposure to COVID-19; I51.3 Intracardiac thrombosis, not elsewhere classified; E78.5 Hyperlipidemia, unspecified; N18.9 Chronic kidney disease, unspecified; F17.210 Nicotine dependence, cigarettes, uncomplicated; E86.0 Dehydration; F41.9 Anxiety disorder, unspecified; J44.9 Chronic obstructive pulmonary disease, unspecified; E11.22 Type 2 diabetes mellitus with diabetic chronic kidney disease; E78.00 Pure hypercholesterolemia, unspecified; K21.9 Gastro-esophageal reflux disease without esophagitis; Z95.0 Presence of cardiac pacemaker; Z88.1 Allergy status to other antibiotic agents; Z88.5 Allergy status to narcotic agent; Z79.82 Long term (current) use of aspirin; Z79.01 Long term (current) use of anticoagulants; Z79.899 Other long term (current) drug therapy; Z80.3 Family history of malignant neoplasm of breast; Z82.49 Family history of ischemic heart disease and other diseases of the circulatory system; Z83.3 Family history of diabetes mellitus; Z88.3 Allergy status to other anti-infective agents; Z91.199 Patient's noncompliance with other medical treatment and regimen due to unspecified reason; Z68.30 Body mass index [BMI] 30.0-30.9, adult
CPT/HCPCS: 36415; 71045; 71260; 80053; 80061; 80307; 83605; 83735; 83880; 84443; 84484; 85025; 87040; 87081; 87426; 93005; 93306; 94640; 99291; G0378; J2543

== ENCOUNTER 2025-02-24 05:49 | Inpatient (IN) | payer MEDICARE, MEDICAID ==
[~2025-02-24] VITALS: Ht 172.7 cm; Wt 82.0 kg
--- NOTE | 2025-02-24 05:55 | ECG ---
[facility] Test Date: 2025-02-24 Test Time: 05:50:15 Pat Name: XIAO HERNANDEZ Department: [facility] ED Patient ID: [id number] Room: 0289T Gender: M Perfume Maker: VINCENT : 1960 Requested By: EMERGENCY EMERGENCY Order Number: [id number] Reading MD: Ector Jeffers Measurements Intervals [place] Rate: 100 P: 55 [place]: 161 QRS: -59 QRSD: 123 T: 135 QT: 368 QTc: 475 Interpretive Statements Sinus arrhythmia Paired ventricular premature complexes Left bundle branch block Electronically Signed On 02-25-2025 18:47:42 PDT by Ector Jeffers Please click the below link to view image of tracing.
--- NOTE | 2025-02-24 06:35 | ED.PDOC ---
HPI Comments 64 y.o male with PMHx of COPD, CHF, CAD, CKD, HLD, HTN, and DM, presents to the ED via EMS for a chief complaint of substernal chest pain associated with nausea, vomiting and SOB that started 1 day ago. Patient reports pain is sharp, constant, non radiating and has no alleviating factors. Patient also presents with wheezing. He admits to prior TB use and states quitting 9 days ago. Upon ED arrival, SPO2 read 96% RA. He denies any substance or alcohol use. Chief Complaint: Chest Pain Time Seen by MD: 06:20 Primary Care Provider: TRIP Reviewed Notes: Nurses Notes, Tire Trucker Notes, Medications, Allergies Allergies: Coded Allergies: Empagliflozin (Verified Allergy, Severe, 07/24/24) Morphine (Unverified Allergy, Unknown, 04/18/22) SEVERE BRADYCARDIA Sulfamethoxazole w/Trimethoprim (Verified Allergy, Unknown, 11/06/24) Home Meds Active Scripts Aspirin (Aspirin Low Dose) 81 Mg Tab, 81 MG PO DAILY for 30 Days, #30 TAB Prov:MANJULA LAN SANDING LINE OPERATOR 07/12/24 Potassium Chloride (Potassium Chloride ER) 10 Meq Tab, 10 MEQ PO BID for 30 Days, #60 TAB Prov:MANJULA LAN SANDING LINE OPERATOR 07/11/24 Furosemide (Lasix) 40 Mg Tab, 40 MG PO BID for 30 Days, #60 TAB Prov:MANJULA LAN SANDING LINE OPERATOR 07/11/24 Sacubitril-Valsartan (Entresto 24-26 mg) 1 Tab Tab, 1 TAB PO BID, #180 TAB Prov:EUN LI MD 09/16/23 Reported Medications Apixaban Base (ELIQUIS) 5 Mg Tab, 1 TAB PO BID 01/16/25 Tiotropium [place] Monohydrate (Spiriva Respimat) 1.25 Mcg/Act Aer, 2 PUFF INH DAILY for 90 Days, #12 12/22/24 Carvedilol (Carvedilol) 6.25 Mg Tab, 1 TAB PO BID for 90 Days, #180 12/22/24 Dapagliflozin Propanediol (Farxiga) 10 Mg Tab, 10 MG PO DAILY, TAB 12/22/24 Levothyroxine Sodium (Levothyroxine Sodium) 137 Mcg Tab, 1 TAB PO DAILY for 70 Days, #70 07/25/24 Tamsulosin Hcl (Tamsulosin Hcl) 0.4 Mg Cap, 0.8 MG PO DAILY AFTER MEAL for 180 Days, #90 09/14/23 Information Source: Patient Mode of Arrival: EMS Severity: Moderate Timing: Days (1) Duration: Since onset Location: Substernal Radiation: No Radiation Quality: Sharp Onset: At Rest Cardiac Risk Factors: Smoker, Hyperlipidemia, HTN, Diabetes PE Risk Factors: None History of: Similar pain in past, ND Modifying Factors: Nothing Associated Signs and Symptoms: SOB, N/V Past Medical History PAST MEDICAL HISTORY: Anxiety, CAD, CHF, CKF, COPD, Depression, DM, GERD, High Lipids, HTN, ND, Thyroid Surgical History: Pacemaker Family History Family History: Reviewed,noncontributory to illness, Unknown Social History Smoker: Quit Less Than 1 Year, Cigarettes Alcohol: Denies ETOH Use Drugs: Denies Drug Use Lives In: Home Constitutional: denies: chills, diaphoresis, fatigue, fever, malaise, sweats, weakness, others EENTM: denies: blurred vision, double vision, ear bleeding, ear discharge, ear drainage, ear pain, ear ringing, eye pain, eye redness, hearing loss, mouth pain, mouth swelling, nasal discharge, nose bleeding, nose congestion, nose pain, photophobia, tearing, throat pain, throat swelling, voice changes, others Respiratory: reports: SOB at rest, shortness of breath; denies: cough, hemoptysis, orthopnea, SOB with excertion, stridor, wheezing, others Cardiovascular: reports: chest pain; denies: dizzy spells, diaphoresis, Dyspnea on exertion, edema, irregular heart beat, left arm pain, lightheadedness, palpitations, PND, syncope, others Gastrointestinal: reports: nausea, vomiting; denies: abdomen distended, abdominal pain, blood streaked bowels, constipated, diarrhea, dysphagia, difficulty swallowing, hematemesis, melena, poor appetite, poor fluid intake, rectal bleeding, rectal pain, others Genitourinary: denies: burning, dysuria, flank pain, frequency, hematuria, incontinence, penile discharge, penile sore, pain, testicle pain, testicle swelling, urgency, others Neurological: denies: dizziness, fainting, headache, left sided numbness, left sided weakness, numbness, paresthesia, pre-existing deficit, right sided numbness, right sided weakness, seizure, speech problems, tingling, tremors, weakness, others Musculoskeletal: denies: back pain, gout, joint pain, joint swelling, muscle pain, muscle stiffness, neck pain, others Integumetry: denies: bruises, change in color, change in hair/nails, dryness, laceration, lesions, lumps, rash, wounds, others Allergic/Immunocompromised: denies: Difficulty Healing, Frequent Infections, Hives, Itching, others Hematologic/Lymphatic: denies: anemia, blood clots, easy bleeding, easy bruising, swollen glands, others Endocrine: denies: excessive hunger, excessive sweating, excessive thirst, excessive urination, flushing, intolerance to cold, intolerance to heat, unexplained weight gain, unexplained weight loss, others Psychiatric: denies: anxiety, bipolar disorder, depression, hopeless, panic disorder, schizophrenia, sleepless, suicidal, others All Other Systems: Reviewed and Negative Physical Exam General Appearance: Moderate Distress HEENT: Normal ENT Inspection, Pharynx Normal, TMs Normal Neck: Full Range of Motion, Non-Tender, Normal, Normal Inspection Respiratory: Respiratory Distress, Other (Coarse breath) Cardiovascular: No Edema, No JVD, No Murmur, No Gallop, Normal Peripheral Pulses, Regular Rate/Rhythm Breast Exam: Deferred Gastrointestinal: No Organomegaly, Non Tender, No Pulsatile Mass, Normal Bowel Sounds, Soft Genitalia: Deferred Pelvic: Deferred Rectal: Deferred Extremities: No calf tenderness, Normal capillary refill, Normal inspection, Normal range of motion, Non-tender, No pedal edema Musculoskeletal : Apperance: Normal Neurologic: Alert, gradall operator II-XII nml as Tested, No Motor Deficits, Normal Affect, Normal Mood, No Sensory Deficits Cerebellar Function: NOT DONE Reflexes: NOT DONE Skin: Dry, Normal Color, Warm Peripheral Pulses: 3+ Radial (R), 3+ Radial (L) Lymphatic: No Adenopathy EKG EKG : Pulse Rate (adult): 100 Was a procedure done? Was a procedure done?: No CP Differential Dx Differential Diagnosis: A-fib, A-Flutter, Angina, Anxiety / Panic Attack, Atrial Dysrhythmia, Electrolyte Disorder, N/A Differential Diagnosis: Angina, Chest Wall Pain, Cholelithiasis, Costo chondritis, Myocardial Infarction, Pericarditis, Pneumonia, Pulmonary Embolus X-Ray, Labs, Meds, VS Vital Signs Date Time Temp Pulse Resp B/P (MAP) Pulse Ox O2 Delivery O2 Flow Rate FiO2 02/24/25 06:35 100 02/24/25 05:50 100 02/24/25 05:49 98.1 88 18 119/84 96 98.1 Lab Test 02/24/25 06:42 Range/Units White Blood Count 6.8 4.4-10.8 10^3/uL Red Blood Count 5.56 4.5-5.90 10^6/uL Hemoglobin 16.9 13.5-17.5 g/dL Hematocrit 50.7 41.0-53.0 % Mean Corpuscular Volume 91.1 80.0-100.0 fL Mean Corpuscular Hemoglobin 30.4 28.0-32.0 pg Mean Corpuscular Hemoglobin Concent 33.3 32.0-36.0 g/dL Red Cell Distribution Width 16.3 H 11.8-14.3 % Platelet Count 259 140-450 10^3/uL Mean Platelet Volume 8.8 6.9-10.8 fL Neutrophils (%) (Auto) 63.2 37.0-80.0 % Lymphocytes (%) (Auto) 20.4 10.0-50.0 % Monocytes (%) (Auto) 10.0 0.0-12.0 % Eosinophils (%) (Auto) 5.3 0.0-7.0 % Basophils (%) (Auto) 1.1 0.0-2.0 % Neutrophils # (Auto) 4.3 1.6-8.6 10 ^3/uL Lymphocytes # (Auto) 1.4 0.4-5.4 10 ^3/uL Monocytes # (Auto) 0.7 0-1.3 10 ^3/uL Eosinophils # (Auto) 0.4 0-0.8 10 ^3/uL Basophils # (Auto) 0.1 0-0.2 10 ^3/uL Nucleated Red Blood Cells 0.1 % Sodium Level 145 136-145 mmol/L Potassium Level 4.5 3.5-5.1 mmol/L Chloride Level 110 H 98-107 mmol/L Carbon Dioxide Level 25 20-31 mmol/L Anion Gap 10 5-15 Blood Urea Nitrogen 19 9-23 mg/dL Creatinine 1.49 H 0.700-1.30 mg/dL Glomerular Filtration Rate Calc 52 >90 mL/min BUN/Creatinine Ratio 12.8 10.0-20.0 Serum Glucose 102 74-106 mg/dL Calcium Level 9.4 8.7-10.4 mg/dL Troponin I High Sensitivity 41 </=54 ng/L B-Type Natriuretic Peptide 652.18 0-100 pg/mL Patient alert. Complaining of chest pain shortness a breath. Continues to smoke cigarettes. Vitals stable. BNP elevated. Was given Lasix. Counseled patient on effects of smoking cigarettes for 15 minutes. Was given aspirin. WBC within normal limits. Hemoglobin within normal limits. EKG reviewed does not show any acute changes. Explained to the patient that he will be admitted for further studies. Continue monitoring. X-Ray, Labs, Meds, VS Comment [place] [id number] Ph: [phone] DIAGNOSTIC IMAGING Diagnostic Imaging Report : [id number] Signed PATIENT: XIAO HERNANDEZ ACCT: [id number] UNIT: [id number] : 1960 LOC: ER ROOM / BED: / AGE / SEX: 64 / M ADM STATUS: REG ER SERVICE 9 ORDERING PHYSICIAN: DAVI SMITH MD PROCEDURE(s): CXRP - CHEST PORTABLE REASON: sob ORDER NUMBER(s): [id number], ACCESSION NUMBER(s): [id number] CLINICAL INFORMATION: Shortness of breath. TECHNIQUE: Single AP portable chest radiograph was obtained. COMPARISON: CT CHEST WITH CONTRAST on DOS: 02/08/25, XY CHEST XRAY 1 VIEW on DOS: 02/07/25, XY CHEST PORTABLE on DOS: 01/16/25 FINDINGS: Lungs: Mild atelectasis in the lung bases. No focal consolidation. No pneumothorax or pleural effusion. Cardiac: Mild cardiomegaly. Stable satisfactory positioning of the ICD leads. Pulmonary vasculature: Mildly prominent pulmonary vasculature. Mediastinum/sol: Moderate atherosclerotic calcification of the aortic arch. Bones: No acute osseous abnormality identified. Other: No other significant findings. IMPRESSION: Findings consistent with mild pulmonary vascular congestion in the appropriate clinical setting. ATED BY: BUDDY CASTELLANO DO DICTATED DATE/TIME: 02/24/25729 SIGNED BY: BUDDY CASTELLANO DO SIGNED DATE/TIME: 02/24/25729 CC: Time of 1ST Reevaluation: 07:30 Reevaluation 1ST: Unchanged Patient Education/Counseling: Diagnosis, Treatment, Prognosis Family Education/Counseling: No Family Present SEPSIS Sepsis Screen Date sepsis recognized/suspect: Feb 24, 2025 Time Sepsis recognized/suspect: 0549 Recent Procedure: No On Antibiotic Therapy: No Respiratory Rate >20: No Heart Rate >90: No Temp<36 C (96.8 F) or >38.3 C: No SBP <90 or MAP <65 mmHG: No New Acute Mental Status Change: No Is the patient on CPAP, BIPAP,: No Physician Orders Electrocardigram (02/24/25 06:52) Electrocardigram (02/24/25 08:52) Chest Portable (02/24/25 06:30) Troponin-I Hs (02/24/25 07:30) Troponin-I Hs (02/24/25 09:30) Vital Signs Date Time Temp Pulse Resp B/P (MAP) Pulse Ox O2 Delivery O2 Flow Rate FiO2 02/24/25 06:35 100 02/24/25 05:50 100 02/24/25 05:49 98.1 88 18 119/84 96 98.1 Laboratory Tests Test 02/24/25 06:42 White Blood Count 6.8 10^3/uL (4.4-10.8) Departure 1 Departure Time of Disposition: 07:26 Impression: Primary Impression: Congestive heart failure Qualified Codes: I50.43 - Acute on chronic combined systolic (congestive) and diastolic (congestive) heart failure Additional Impression: Chest pain of unknown etiology Disposition: ADMITTED INPATIENT Admit to: Med Surg Condition: Guarded Critical Care Note Critical Care Time?: Yes (90 min-critical care time only) Stability Stability form required: No Heart Score Heart Score: Heart Score Response (Comments) Value History Moderate Suspicious 1 EKG Normal 0 Age >65 2 Risk Factors >3 or Hx ASHD 2 Troponin Normal limit 0 Total 5 I personally scribed for DAVI SMITH MD ([email or web address]) on 02/24/25 at 06:35. Electronically submitted by Elizabeth Ríos ([facility]). I personally scribed for DAVI SMITH MD ([email or web address]) on 02/24/25 at 07:50. Electronically submitted by Elizabeth Ríos ([facility]). DAVI SMITH MD Feb 24, 2025 06:35
[2025-02-24 07:13] LABS: Potassium 4.5 mmol/L (3.5-5.1); Sodium 145 mmol/L (136-145)
[2025-02-24 07:14] LABS: Anion Gap 10 (5-15); Calcium 9.4 mg/dL (8.7-10.4); Carbon Dioxide 25 mmol/L (20-31)
[2025-02-24 07:18] LABS: Chloride 110 mmol/L (98-107); Hematocrit 50.7 % (41.0-53.0); Hemoglobin 16.9 g/dL (13.5-17.5); Mean Corpuscular Hemoglobin 30.4 pg (28.0-32.0); Mean Corpuscular Volume 91.1 fL (80.0-100.0); Nucleated Red Blood Cells % 0.1 %
[2025-02-24 07:19] LABS: BUN/Creatinine Ratio 12.8 (10.0-20.0); Blood Urea Nitrogen 19 mg/dL (9-23); Glucose 102 mg/dL (74-106)
--- NOTE | 2025-02-24 07:33 | DVH ---
CLINICAL INFORMATION: Shortness of breath. TECHNIQUE: Single AP portable chest radiograph was obtained. COMPARISON: CT CHEST WITH CONTRAST on DOS: 02/08/25, XY CHEST XRAY 1 VIEW on DOS: 02/07/25, XY CHEST PO RTABLE on DOS: 01/16/25 FINDINGS: Lungs: Mild atelectasis in the lung bases. No focal consolidation. No pneumothorax or pleural effusio n. Cardiac: Mild cardiomegaly. Stable satisfactory positioning of the ICD leads. Pulmonary vasculature: Mildly prominent pulmonary vasculature. Mediastinum/sol: Moderate atherosclerotic calcification of the aortic arch. Bones: No acute osseous abnormality identified. Other: No other significant findings. IMPRESSION: Findings consistent with mild pulmonary vascular congestion in the appropriate clinical setting.
[2025-02-24] MEDS: FUROSEMIDE 40 MG/4 ML VIAL IV ONE (08:54)
[2025-02-24] MEDS: IPRATROPIUM BROM 0.5 MG/2.5ML INH SOL NEB ONE (08:55)
[2025-02-24] MEDS: ALBUTEROL SULF 2.5 MG/0.5ML(0.5%) NEB SOLN NEB ONE (08:55)
[2025-02-24 09:40] VITALS: PULSE 96; RESP 22; O2SAT 99
[2025-02-24] MEDS: HYDROmorphone HCL 2 MG/ML VL/or syr IV ONE (10:15)
[2025-02-24] MEDS ORDERED: ONDANSETRON HCL 4 MG/2 ML VIAL IV PRN (15:15)
[2025-02-24] MEDS ORDERED: MORPHINE SULFATE INJ 2 MG/ml SYRG IV PRN (15:15)
[2025-02-24] MEDS ORDERED: NITROGLYCERIN 0.4 MG SL TAB SL PRN (15:15)
[2025-02-24] MEDS ORDERED: DOCUSATE SOD 100 MG CAP PO PRN (15:15)
--- NOTE | 2025-02-24 15:59 | DVHHP2 ---
History of Present Illness Reason for Visit: chest pain History of Present Illness Good Almeida is a 64-year-old male with past medical history of COPD, CHF, CAD, chronic kidney disease, hyperlipidemia, hypertension, and diabetes, who came to the hospital with complaints of chest pain. Patient is seen here frequently with similar complaints. He has a history of noncompliance. Patient had an ECHO completed here 02/09/2025 that showed an EF of 15%. He states Dr. Montalvo is his real estate developer. Cardiovascular: CAD, CHF, HTN, hyperipidemia Pulmonary: COPD Endocrine: Diabetes Smoke: Quit (9 days ago) ALCOHOL: occassional Drugs: None Lives: with Family Domestic Violence: Neg Review of Systems Constitutional: No: Fever, Chills, Sweats, Weakness, Malaise, Other Eyes: No: Pain, Vision change, Conjunctivae inflammation, Eyelid inflammation, Other, Redness ENT: No: Ear pain, Ear discharge, Nose pain, Nose discharge, Nose congestion, Mouth pain, Mouth swelling, Throat pain, Throat swelling, Other Respiratory: Shortness of breath, SOB with excertion; No: Cough, Dry, Wheezing, Hemoptysis, Pleuritic Pain, Sputum, Wheezing, Other Cardiovascular: Chest Pain; No: Palpitations, Orthopnea, Paroxysmal Noc. Dyspnea, Edema, Lt Headedness, Other Gastrointestinal: No: Nausea, Vomiting, Abdominal Pain, Diarrhea, Constipation, Melena, Hematochezia, Other Genitourinary: No Dysuria, No Frequency, No Incontinence, No Hematuria, No Retention, No Other Musculoskeletal: No: other, neck pain, shoulder pain, arm pain, back pain, hand pain, leg pain, foot pain Skin: No: Rash, Lesions, Jaundice, Bruising, Other Neurological: No: Weakness, Numbness, Incoordination, Change in speech, Confusion, Seizures, Other Allergies: Coded Allergies: Empagliflozin (Verified Allergy, Severe, 07/24/24) Morphine (Unverified Allergy, Unknown, 04/18/22) SEVERE BRADYCARDIA Sulfamethoxazole w/Trimethoprim (Verified Allergy, Unknown, 11/06/24) Exam Vital Signs Vital Signs Date Time Temp Pulse Resp B/P (MAP) Pulse Ox O2 Delivery O2 Flow Rate FiO2 02/24/25 14:00 97.5 96 11 122/91 (101) 97 97.5 02/24/25 09:40 Nasal Cannula* 2 28 General Appearance: Alert, Oriented X3, Cooperative, moderate distress HEENT: Atraumatic, PERRLA Respiratory: Clear to auscultation, Normal air movement Cardiovascular: Regular rate, Normal S1, Normal S2, No murmurs Abdominal: Normal bowel sounds, Soft, No tenderness Extremities: No clubbing, No cyanosis, Normal pulses, No tenderness/swelling, Other (bilateral pedal edema) Skin: No rashes, No breakdown, No significant lesion Neuro: Normal gait, Normal speech, Strength at 5/5 X4 ext Psych/Mental Status: Mental status NL, Mood NL Labs/Xrays Labs Test 02/24/25 10:17 02/24/25 06:42 Range/Units Troponin I High Sensitivity 37 </=54 ng/L White Blood Count 6.8 4.4-10.8 10^3/uL Red Blood Count 5.56 4.5-5.90 10^6/uL Hemoglobin 16.9 13.5-17.5 g/dL Hematocrit 50.7 41.0-53.0 % Mean Corpuscular Volume 91.1 80.0-100.0 fL Mean Corpuscular Hemoglobin 30.4 28.0-32.0 pg Mean Corpuscular Hemoglobin Concent 33.3 32.0-36.0 g/dL Red Cell Distribution Width 16.3 H 11.8-14.3 % Platelet Count 259 140-450 10^3/uL Mean Platelet Volume 8.8 6.9-10.8 fL Neutrophils (%) (Auto) 63.2 37.0-80.0 % Lymphocytes (%) (Auto) 20.4 10.0-50.0 % Monocytes (%) (Auto) 10.0 0.0-12.0 % Eosinophils (%) (Auto) 5.3 0.0-7.0 % Basophils (%) (Auto) 1.1 0.0-2.0 % Neutrophils # (Auto) 4.3 1.6-8.6 10 ^3/uL Lymphocytes # (Auto) 1.4 0.4-5.4 10 ^3/uL Monocytes # (Auto) 0.7 0-1.3 10 ^3/uL Eosinophils # (Auto) 0.4 0-0.8 10 ^3/uL Basophils # (Auto) 0.1 0-0.2 10 ^3/uL Nucleated Red Blood Cells 0.1 % Sodium Level 145 136-145 mmol/L Potassium Level 4.5 3.5-5.1 mmol/L Chloride Level 110 H 98-107 mmol/L Carbon Dioxide Level 25 20-31 mmol/L Anion Gap 10 5-15 Blood Urea Nitrogen 19 9-23 mg/dL Creatinine 1.49 H 0.700-1.30 mg/dL Glomerular Filtration Rate Calc 52 >90 mL/min BUN/Creatinine Ratio 12.8 10.0-20.0 Serum Glucose 102 74-106 mg/dL Calcium Level 9.4 8.7-10.4 mg/dL B-Type Natriuretic Peptide 652.18 0-100 pg/mL TECHNIQUE: Single AP portable chest radiograph was obtained. FINDINGS: Lungs: Mild atelectasis in the lung bases. No focal consolidation. No pneumothorax or pleural effusion. Cardiac: Mild cardiomegaly. Stable satisfactory positioning of the ICD leads. Pulmonary vasculature: Mildly prominent pulmonary vasculature. Mediastinum/sol: Moderate atherosclerotic calcification of the aortic arch. Bones: No acute osseous abnormality identified. Other: No other significant findings. IMPRESSION: Findings consistent with mild pulmonary vascular congestion in the appropriate clinical setting. SEPSIS Sepsis Screen Date sepsis recognized/suspect: Feb 24, 2025 Time Sepsis recognized/suspect: 0549 Recent Procedure: No On Antibiotic Therapy: No Respiratory Rate >20: No Heart Rate >90: No Temp<36 C (96.8 F) or >38.3 C: No SBP <90 or MAP <65 mmHG: No New Acute Mental Status Change: No Is the patient on CPAP, BIPAP,: No Physician Orders Admit (02/24/25 15:13) Code Status (02/24/25 15:13) Sodium Chloride Lock (Saline Lock Ns) (02/24/25 22:00) Hydrocodone-Acet 5/325mg Tab ([place] 5/32 (02/24/25 15:15) Ondansetron Hcl (Zofran) (02/24/25 15:15) Docusate Sodium Capsule (Colace Capsule) (02/24/25 15:15) Complete Blood Count (02/25/25 04:00) Comprehensive Metabolic Panel (02/25/25 04:00) Cardiac Diet-2gna,Lofat,Lochol (02/24/25 Dinner) Condition: Serious (02/24/25 15:13) Acetaminophen Tablet (Tylenol Tablet) (02/24/25 15:15) Nitroglycerin Sublingual (Ntrostat Subli (02/24/25 15:15) Morphine Sulfate Injection (02/24/25 15:15) Stat Ekg For Chest Pain (02/24/25 15:13) Notify Md Of Changes From Base (02/24/25 15:13) Buckle Stringer For 24 Hours (02/24/25 15:13) Emergency Dysrhythmia Protocol (02/24/25 15:13) Rhythm Strips Once Every Shift (02/24/25 15:13) Oxygen By Nasal Cannula (02/24/25 15:13) Furosemide Injection (Lasix Injection) (02/25/25 10:00) Apixaban (Eliquis) (02/24/25 22:00) Aspirin Enteric Coated Tablet (Ecotrin E (02/25/25 10:00) Sacubitril-Valsartan (Entresto 24-26 Mg (02/24/25 22:00) Tamsulosin Hydrochloride (Flomax) (02/24/25 22:00) (Nf) Carvedilol (02/24/25 22:00) Vital Signs Date Time Temp Pulse Resp B/P (MAP) Pulse Ox O2 Delivery O2 Flow Rate FiO2 02/24/25 14:00 97.5 96 11 122/91 (101) 97 97.5 02/24/25 12:01 96 14 118/84 (95) 97 02/24/25 10:45 99 14 119/77 02/24/25 10:15 100 21 126/86 02/24/25 09:40 96 22 99 Nasal Cannula* 2 28 02/24/25 09:30 98.4 96 22 126/86 (99) 99 98.4 02/24/25 08:56 20 98 Room Air* 0 21 02/24/25 08:54 132/83 02/24/25 08:45 109 02/24/25 08:18 98.2 78 19 132/83 (99) 99 98.2 Laboratory Tests Test 02/24/25 06:42 White Blood Count 6.8 10^3/uL (4.4-10.8) Medications Medications Dose Ordered Sig/Manuel Route Start Time Stop Time Status Last Admin Dose Admin Albuterol 5 mg ONCE ONCE NEB 02/24/25 08:30 02/24/25 08:31 DC 02/24/25 08:55 5 MG Aspirin 325 mg ONCE ONCE PO 02/24/25 06:30 02/24/25 06:32 DC 02/24/25 08:14 325 MG Furosemide 40 mg ONCE ONCE IV 02/24/25 08:30 02/24/25 08:31 DC 02/24/25 08:54 40 MG Hydromorphone HCl 1 mg ONCE ONCE IV 02/24/25 09:00 02/24/25 09:01 DC 02/24/25 10:15 1 MG Ipratropium [place] 0.5 mg ONCE ONCE NEB 02/24/25 08:30 02/24/25 08:31 DC 02/24/25 08:55 0.5 MG Assessment/Plan Assessment/Plan Assessment: CHF exacerbation, Hypertension, Hyperlipidemia, COPD, Plan: Admit to Tele, Consider cardiology consult, IV Lasix, Breathing treatments, Strict I&O's, Daily weight, Fluid restriction, Accu checks with sliding scale, Home medications reconciled, Plan discussed with: Patient My Orders Orders - HARRY ALTMAN Procedure Category Date Status Time Admit ADMIT 02/24/25 Verified 15:13 Code Status CODE 02/24/25 Verified 15:13 Sodium Chloride Lock PHA 02/24/25 Verified (Saline Lock Ns) 22:00 Hydrocodone-Acet PHA 02/24/25 Verified 5/325mg Tab ([place] 15:15 Ondansetron Hcl PHA 02/24/25 Verified (Zofran) 15:15 Docusate Sodium PHA 02/24/25 Verified Capsule (Colace 15:15 Complete Blood Count LAB 02/25/25 Verified 04:00 Comprehensive LAB 02/25/25 Verified Metabolic Panel 04:00 Cardiac DIET 02/24/25 Verified Diet-2gna,Lofat,Lochol Dinner Condition: Serious TERRI 02/24/25 Verified 15:13 Acetaminophen Tablet PHA 02/24/25 Verified (Tylenol Tablet) 15:15 Nitroglycerin PHA 02/24/25 Verified Sublingual (Ntrostat 15:15 Morphine Sulfate PHA 02/24/25 Verified Injection 15:15 Stat Ekg For Chest TERRI 02/24/25 Verified Pain 15:13 Notify Of Changes [facility] 02/24/25 Verified From Base 15:13 Buckle Stringer For [facility] 02/24/25 Verified 24 Hours 15:13 Emergency Dysrhythmia [facility] 02/24/25 Verified Protocol 15:13 Rhythm Strips Once [facility] 02/24/25 Verified Every Shift 15:13 Oxygen By Nasal RT 02/24/25 Verified Cannula 15:13 Furosemide Injection [facility] 02/25/25 Verified (Lasix Injection) 10:00 Apixaban (Eliquis) [facility] 02/24/25 Verified 22:00 Aspirin Enteric PHA 02/25/25 Verified Coated Tablet 10:00 Sacubitril-Valsartan [facility] 02/24/25 Verified (Entresto 24-26 Mg 22:00 Tamsulosin [facility] 02/24/25 Verified Hydrochloride (Flomax) 22:00 (Nf) Carvedilol [facility] 02/24/25 Verified 22:00 Date of Service: Feb 24, 2025 Billing Provider: HARRY ALTMAN Common Visit Codes: [id number] INP/OBS CARE (MOD) HARRY ALTMAN Feb 24, 2025 15:59
[2025-02-24] MEDS ORDERED: DEXTROSE (50%) 50ML SYRG IV PRN (16:00)
[2025-02-24] MEDS: InsuLIN REG 1unit/0.01ml Soln (100units/ml) SC SCH ×2 (17:00→22:00)
[2025-02-24] MEDS: ACCU-CHEK COMFORT CURVE STRIP VI SCH (17:09)
[2025-02-24 19:04] VITALS: BP 119/83; PULSE 83; RESP 18; TEMP 97.5; O2SAT 97
[2025-02-24] MEDS: SODIUM CHLOR 0.9% PF (SALINE LOCK) 10ML VIAL/SYR IV SCH (22:11)
[2025-02-24 22:28] VITALS: BP 119/72; PULSE 79; RESP 19; TEMP 97.7; O2SAT 94
[2025-02-24] MEDS: CARVEDILOL 3.125 MG TAB PO SCH (22:59)
[2025-02-24] MEDS: TAMSULOSIN HYDROCHLORIDE 0.4 MG CAP PO SCH (22:59)
[2025-02-24] MEDS: SACUBITRIL-VALSARTAN 24mg/26mg TAB PO SCH (22:59)
[2025-02-24] MEDS: APIXABAN 5 MG TAB PO SCH (22:59)
[2025-02-25] VITALS (13 sets, daily range): BP systolic 92–101; BP diastolic 54–69; PULSE 67–101; RESP 16–19; TEMP 97.7–98.3; O2SAT 96–100
--- NOTE | 2025-02-25 03:03 | ECG ---
[facility] Test Date: 2025-02-24 Test Time: 08:45:57 Pat Name: XIAO HERNANDEZ Department: ED Room: 0289T A Gender: M Manager Validation: jen : 1960 Requested By: EMERGENCY EMERGENCY Order Number: [id number] Reading MD: Ector Jeffers Measurements Intervals [place] Rate: 109 P: 52 [place]: 163 QRS: -54 QRSD: 118 T: 113 QT: 354 QTc: 477 Interpretive Statements Sinus tachycardia Paired ventricular premature complexes Probable left atrial enlargement Incomplete left bundle branch block Electronically Signed On 02-25-2025 18:47:57 PDT by Ector Jeffers Please click the below link to view image of tracing.
[2025-02-25] MEDS: HYDROcodone-ACET 5/325MG TAB PO PRN (04:26)
[2025-02-25] MEDS: LEVOTHYROXINE SODIUM 112 MCG TAB PO SCH (05:28)
[2025-02-25] MEDS: LEVOTHYROXINE SODIUM 25 MCG TAB PO SCH (05:28)
[2025-02-25 06:26] LABS: Alanine Aminotransferase 25 U/L (7-40); Albumin 3.7 g/dL (3.2-4.8); Alkaline Phosphatase 62 U/L (46-116); Anion Gap 11 (5-15); BUN/Creatinine Ratio 13.4 (10.0-20.0); Calcium 8.7 mg/dL (8.7-10.4); Carbon Dioxide 26 mmol/L (20-31); Chloride 103 mmol/L (98-107); Glucose 94 mg/dL (74-106); Potassium 4.1 mmol/L (3.5-5.1); Sodium 140 mmol/L (136-145); Total Protein 6.2 g/dL (5.7-8.2)
[2025-02-25 06:27] LABS: Hematocrit 47.3 % (41.0-53.0); Hemoglobin 15.8 g/dL (13.5-17.5); Mean Corpuscular Hemoglobin 30.2 pg (28.0-32.0); Mean Corpuscular Volume 90.6 fL (80.0-100.0); Nucleated Red Blood Cells % 0.3 %
[2025-02-25 06:31] LABS: Bilirubin, Total 1.2 mg/dL (0.2-1.0); Blood Urea Nitrogen 23 mg/dL (9-23)
[2025-02-25] MEDS: ASPirin-EC 81 mg tab PO SCH (09:37)
[2025-02-25] MEDS: Dapagliflozin Propanediol (Farxiga) 10 MG TABLET PO SCH (09:38)
[2025-02-25] MEDS: FUROSEMIDE 40 MG/4 ML VIAL IV SCH (09:38)
[2025-02-25] MEDS: ALBUTEROL SULF 2.5 MG/0.5ML(0.5%) NEB SOLN NEB PRN (11:00)
[2025-02-25] MEDS: IPRATROPIUM BROM 0.5 MG/2.5ML INH SOL NEB PRN (11:00)
[2025-02-25] MEDS: ACETAMINOPHEN 325 MG TAB PO PRN (12:52)
--- NOTE | 2025-02-25 14:15 | DVHPN2 ---
Reviewed: Care Plan, H&P, Labs, Medications, Previous Orders, Radiology Changes from previous H/P or p: No Changes Eyes: No Pain, No Vision change, No Conjunctivae inflammation, No Eyelid inflammation, No Other, No Redness ENT: No Ear pain, No Ear discharge, No Nose pain, No Nose discharge, No Nose congestion, No Mouth pain, No Mouth swelling, No Throat pain, No Throat swelling, No Other Cardiovascular: Chest Pain; No Palpitations, No Orthopnea, No Paroxysmal Noc. Dyspnea, No Edema, No Lt Headedness, No Other Respiratory: No Cough, No Dry; Shortness of breath, SOB with excertion; No Wheezing, No Hemoptysis, No Pleuritic Pain, No Sputum, No Other Gastrointestinal: No Nausea, No Vomiting, No Abdominal Pain, No Diarrhea, No Constipation, No Melena, No Hematochezia, No Other Genitourinary: No Dysuria, No Frequency, No Incontinence, No Hematuria, No Retention, No Other Musculoskeletal: No other, No neck pain, No shoulder pain, No arm pain, No back pain, No hand pain, No leg pain, No foot pain Skin: No Rash, No Lesions, No Jaundice, No Bruising, No Other Objective Vitals Vital Signs Date Time Temp Pulse Resp B/P (MAP) Pulse Ox O2 Delivery O2 Flow Rate FiO2 02/25/25 12:20 97.8 67 17 95/65 (75) 96 97.8 02/25/25 11:01 Nasal Cannula 2.0 02/25/25 11:01 28 Intake/Output Intake and Output 02/25/25 07:00 Intake Total 850 ml Output Total 1250 ml Balance -400 ml Intake Oral 850 ml Output Urine Total 1250 ml # Voids 6 Medications Current Medications Medications Dose Ordered Sig/Manuel Route Start Time Stop Time Status Last Admin Dose Admin Sodium Chloride 10 ml Q8HR IV 02/24/25 22:00 02/25/25 05:28 10 ML Acetaminophen/ Hydrocodone Bitart 1 tab Q4HP PRN PO 02/24/25 15:15 02/25/25 04:26 1 TAB Ondansetron HCl 4 mg Q4HP PRN IV 02/24/25 15:15 Docusate Sodium 100 mg BIDPRN PRN PO 02/24/25 15:15 Acetaminophen 650 mg Q6HP PRN PO 02/24/25 15:15 02/25/25 12:52 650 MG Nitroglycerin 0.4 mg Q5MINP PRN SL 02/24/25 15:15 Morphine Sulfate 2 mg Q30M PRN IV 02/24/25 15:15 Hold Furosemide 40 mg DAILY IV 02/25/25 10:00 Apixaban 5 mg BID PO 02/24/25 22:00 02/25/25 09:37 5 MG Aspirin 81 mg DAILY PO 02/25/25 10:00 02/25/25 09:37 81 MG Sacubitril/ Valsartan 1 tab BID PO 02/24/25 22:00 02/24/25 22:59 1 TAB Tamsulosin HCl 0.8 mg HS PO 02/24/25 22:00 02/24/25 22:59 0.8 MG Carvedilol 6.25 mg BID PO 02/24/25 22:00 02/24/25 22:59 6.25 MG Patient Own Medication 10 mg DAILY PO 02/25/25 10:00 Levothyroxine Sodium 112 mcg QAM@0600 PO 02/25/25 06:00 02/25/25 05:28 112 MCG Diagnostic Test (Pha) 1 strip ACHS 02/24/25 17:00 02/24/25 17:09 1 STRIP Insulin Human Regular HS SC 02/24/25 22:00 Insulin Human Regular AC SC 02/24/25 17:00 Dextrose 50 ml UD PRN IV 02/24/25 16:00 Levothyroxine Sodium 25 mcg QAM@0600 PO 02/25/25 06:00 02/25/25 05:28 25 MCG Ipratropium [place] 0.5 mg Q6HPRN PRN NEB 02/24/25 18:15 02/25/25 11:00 0.5 MG Albuterol 2.5 mg Q6HPRN PRN NEB 02/24/25 18:15 02/25/25 11:00 2.5 MG Laboratory Results Laboratory Tests 02/25/25 05:46 Chemistry Test 02/25/25 05:46 Albumin 3.7 g/dL (3.2-4.8) Calcium Level 8.7 mg/dL (8.7-10.4) Total Protein 6.2 g/dL (5.7-8.2) LFT Test 02/25/25 05:46 Alanine Aminotransferase (ALT) 25 U/L (7-40) Alkaline Phosphatase 62 U/L (46-116) Aspartate Amino Transferase (AST) 27 U/L (13-40) Total Bilirubin 1.2 mg/dL (0.2-1.0) H Microbiology Microbiology Date/Time Source Procedure Growth Status 02/25/25 06:25 Nose MRSA Screen - Final Complete Labs and/or images reviewed: Labs reviewed by me, Image(s) reviewed by me Assessment/Plan Assessment/Plan nicm lv throbus Eliquis non compliance tobacco abuse nyha class III hf Lasix Entresto Coreg ckd meth abuse History of frequent discharges against medical advice Time Spent 70 minutes Advanced care planning time 20 mts Patient is full code Plan discussed with: Patient Date of Service: Feb 25, 2025 Billing Provider: EUN LI MD Common Visit Codes: [id number] CARE 30-74 MIN EUN LI MD Feb 25, 2025 14:15
[2025-02-26] VITALS (10 sets, daily range): BP systolic 92–112; BP diastolic 64–77; PULSE 68–89; RESP 16–20; TEMP 97.9–98.5; O2SAT 96–100
[2025-02-26 06:34] LABS: Urine Protein, UAD Negative (Negative)
[2025-02-26 06:44] LABS: Opiate Scree,Urine Neg (NEGATIVE)
[2025-02-26 07:38] LABS: Amphetamine Screen, Urine Neg (NEGATIVE); Barbiturate Scree,Urine Neg (NEGATIVE); Benzodiazephine Screen, Urine Neg (NEGATIVE); Cannabinoid Screen, Urine Neg (NEGATIVE); Cocaine Screen, Urine Neg (NEGATIVE); Phencyclidine Screen, Urine Neg (NEGATIVE)
--- NOTE | 2025-02-26 12:19 | DVHPN2 ---
Reviewed: Care Plan, H&P, Labs, Medications, Previous Orders, Radiology Changes from previous H/P or p: No Changes Eyes: No Pain, No Vision change, No Conjunctivae inflammation, No Eyelid inflammation, No Other, No Redness ENT: No Ear pain, No Ear discharge, No Nose pain, No Nose discharge, No Nose congestion, No Mouth pain, No Mouth swelling, No Throat pain, No Throat swelling, No Other Cardiovascular: Chest Pain; No Palpitations, No Orthopnea, No Paroxysmal Noc. Dyspnea, No Edema, No Lt Headedness, No Other Respiratory: No Cough, No Dry; Shortness of breath, SOB with excertion; No Wheezing, No Hemoptysis, No Pleuritic Pain, No Sputum, No Other Gastrointestinal: No Nausea, No Vomiting, No Abdominal Pain, No Diarrhea, No Constipation, No Melena, No Hematochezia, No Other Genitourinary: No Dysuria, No Frequency, No Incontinence, No Hematuria, No Retention, No Other Musculoskeletal: No other, No neck pain, No shoulder pain, No arm pain, No back pain, No hand pain, No leg pain, No foot pain Skin: No Rash, No Lesions, No Jaundice, No Bruising, No Other Objective Vitals Vital Signs Date Time Temp Pulse Resp B/P (MAP) Pulse Ox O2 Delivery O2 Flow Rate FiO2 02/26/25 09:00 98.0 80 18 107/77 (87) 96 98.0 02/26/25 08:58 Nasal Cannula* 2 28 Intake/Output Intake and Output 02/26/25 06:59 Intake Total 1186 ml Output Total 1350 ml Balance -164 ml Intake Oral 1186 ml Output Urine Total 1350 ml Medications Current Medications Medications Dose Ordered Sig/Manuel Route Start Time Stop Time Status Last Admin Dose Admin Sodium Chloride 10 ml Q8HR IV 02/24/25 22:00 02/26/25 05:29 10 ML Acetaminophen/ Hydrocodone Bitart 1 tab Q4HP PRN PO 02/24/25 15:15 02/26/25 06:54 1 TAB Ondansetron HCl 4 mg Q4HP PRN IV 02/24/25 15:15 Docusate Sodium 100 mg BIDPRN PRN PO 02/24/25 15:15 Acetaminophen 650 mg Q6HP PRN PO 02/24/25 15:15 02/25/25 12:52 650 MG Nitroglycerin 0.4 mg Q5MINP PRN SL 02/24/25 15:15 Morphine Sulfate 2 mg Q30M PRN IV 02/24/25 15:15 Hold Furosemide 40 mg DAILY IV 02/25/25 10:00 Apixaban 5 mg BID PO 02/24/25 22:00 02/25/25 21:18 5 MG Aspirin 81 mg DAILY PO 02/25/25 10:00 02/25/25 09:37 81 MG Sacubitril/ Valsartan 1 tab BID PO 02/24/25 22:00 02/25/25 21:18 1 TAB Tamsulosin HCl 0.8 mg HS PO 02/24/25 22:00 02/25/25 21:18 0.8 MG Carvedilol 6.25 mg BID PO 02/24/25 22:00 02/24/25 22:59 6.25 MG Patient Own Medication 10 mg DAILY PO 02/25/25 10:00 Levothyroxine Sodium 112 mcg QAM@0600 PO 02/25/25 06:00 02/26/25 05:29 112 MCG Levothyroxine Sodium 25 mcg QAM@0600 PO 02/25/25 06:00 02/26/25 05:28 25 MCG Ipratropium [place] 0.5 mg Q6HPRN PRN NEB 02/24/25 18:15 02/25/25 11:00 0.5 MG Albuterol 2.5 mg Q6HPRN PRN NEB 02/24/25 18:15 02/25/25 11:00 2.5 MG Diphenhydramine HCl 25 mg Q6HP PRN PO 02/25/25 14:15 02/26/25 01:02 25 MG Laboratory Results Laboratory Tests 02/25/25 05:46 Urinalysis Test 02/24/25 06:18 Urine Color Yellow (Yellow) Urine Clarity Clear (Clear) Urine pH 5.0 (5.0-9.0) Urine Specific [place] 1.028 (1.001-1.035) Urine Protein Negative (Negative) Urine Ketones Negative (Negative) Urine Blood Negative /uL (Negative) Urine Nitrite Negative (Negative) Urine Bilirubin Negative (Negative) Urine Urobilinogen Normal mg/dL (Negative) Urine Leukocyte Esterase Negative /uL (Negative) Urine RBC 1 /hpf (0 - 3) Urine Microscopic WBC < 1 /HPF (0-3) Urine Squamous Epithelial Cells None seen /hpf (<5) Urine Bacteria None seen /hpf (None Seen) Urine Glucose 1+ mg/dL (Normal) H Microbiology Microbiology Date/Time Source Procedure Growth Status 02/25/25 06:25 Nose MRSA Screen - Final Complete Labs and/or images reviewed: Labs reviewed by me, Image(s) reviewed by me Assessment/Plan Assessment/Plan nicm lv thrombus Eliquis non compliance tobacco abuse nyha class III hf Lasix Entresto Coreg ckd meth abuse History of frequent discharges against medical advice Time Spent 50 minutes Advanced care planning time 20 mts Patient is full code Plan discussed with: Patient My Orders Orders - EUN LI MD Procedure Category Date Status Time Diphenhdramine PHA 02/25/25 In Process Capsule (Benadryl 14:15 Date of Service: Feb 26, 2025 Billing Provider: EUN LI MD Common Visit Codes: [id number] INP/OBS CARE(HIGH) EUN LI MD Feb 26, 2025 12:19
--- NOTE | 2025-02-26 15:26 | DVHINCON2 ---
Date Seen: Feb 26, 2025 Referring Physician Randy Reason for Consultation CHF, Hx LV thrombus History of Present Illness 64-year-old male with PMH for CHF, nonischemic cardiomyopathy, presence of ICD (Biotronik), CKD, HTN, HLD, history of amphetamine abuse endorses sober for the last year, recently quit tobacco use approximately 12 days prior to presentation, medication noncompliance, LV thrombus on Eliquis with most recent echo showing no more signs of thrombus presents to the hospital with chest pain and worsening shortness of breath. In the ER patient found to have negative troponins trending x3. Creatinine trending 1.49, 1.72. BNP 652. CXR showing mild pulmonary vascular congestion. Patient placed on O2 supplementation at 2 L NC. Cardiology consulted for CHF exacerbation, HX LV thrombus Past Medical History As stated above Past Surgical History Coronary angiogram 04/21/2022 noting mild CAD proximal RCA 30% stenosis otherwise no other flow-limiting stenosis Family History: Alcoholism FH: arrhythmia G8 MOTHER FH: breast cancer G8 SISTER, , Cause: [place] (myocardial infarction) FH: diabetes mellitus FH: heart attack G8 FATHER, , Cause: [place] (myocardial infarction) G8 BROTHER, , Cause: [place] (myocardial infarction) Family history: Cardiovascular disease G8 FATHER, , Cause: [place] (myocardial infarction), Onset:40's - 50 Family history: Diabetes mellitus G8 MOTHER, Onset:40's - 50 G8 FATHER, , Cause: [place] (myocardial infarction) G8 SISTER, , Cause: [place] (myocardial infarction) Sister Social History Remote history amphetamine abuse, recently quit tobacco use. Allergies: Coded Allergies: Empagliflozin (Verified Allergy, Severe, 07/24/24) Morphine (Unverified Allergy, Unknown, 04/18/22) SEVERE BRADYCARDIA Sulfamethoxazole w/Trimethoprim (Verified Allergy, Unknown, 11/06/24) Home Meds Active Scripts Aspirin (Aspirin Low Dose) 81 Mg Tab, 81 MG PO DAILY for 30 Days, #30 TAB Prov:MANJULA LAN GOODYEAR WELTER 07/12/24 Potassium Chloride (Potassium Chloride ER) 10 Meq Tab, 10 MEQ PO BID for 30 Days, #60 TAB Prov:MANJULA LAN [employer]YEAR WELTER 07/11/24 Furosemide (Lasix) 40 Mg Tab, 40 MG PO BID for 30 Days, #60 TAB Prov:MANJULA LAN GOODYEAR WELTER 07/11/24 Sacubitril-Valsartan (Entresto 24-26 mg) 1 Tab Tab, 1 TAB PO BID, #180 TAB Prov:EUN LI MD 09/16/23 Reported Medications Apixaban Base (ELIQUIS) 5 Mg Tab, 1 TAB PO BID 01/16/25 Tiotropium [place] Monohydrate (Spiriva Respimat) 1.25 Mcg/Act Aer, 2 PUFF INH DAILY for 90 Days, #12 12/22/24 Carvedilol (Carvedilol) 6.25 Mg Tab, 1 TAB PO BID for 90 Days, #180 12/22/24 Dapagliflozin Propanediol (Farxiga) 10 Mg Tab, 10 MG PO DAILY, TAB 12/22/24 Levothyroxine Sodium (Levothyroxine Sodium) 137 Mcg Tab, 1 TAB PO DAILY for 70 Days, #70 07/25/24 Tamsulosin Hcl (Tamsulosin Hcl) 0.4 Mg Cap, 0.8 MG PO DAILY AFTER MEAL for 180 Days, #90 09/14/23 Review of Systems Constitutional: No: Fever, Chills, Sweats, Weakness, Malaise, Other Eyes: No: Pain, Vision change, Conjunctivae inflammation, Eyelid inflammation, Other, Redness ENT: No: Ear pain, Ear discharge, Nose pain, Nose discharge, Nose congestion, Mouth pain, Mouth swelling, Throat pain, Throat swelling, Other Respiratory: No: Cough, Dry, Shortness of breath, SOB with exertion, Wheezing, Hemoptysis, Pleuritic Pain, Sputum, Wheezing, Other Cardiovascular: ; No: Chest Pain Palpitations, Orthopnea, Paroxysmal Noc. Dyspnea, Edema, Lt Headedness, Other Gastrointestinal: No: Nausea, Vomiting, Abdominal Pain, Diarrhea, Constipation, Melena, Hematochezia, Other Genitourinary: No Dysuria, No Frequency, No Incontinence, No Hematuria, No Retention, No Other Musculoskeletal: neck pain; No: other, shoulder pain, arm pain, back pain, hand pain, leg pain, foot pain Skin: No: Rash, Lesions, Jaundice, Bruising, Other Neurological: Other (Dizziness, headache.); No: Weakness, Numbness, Incoordination, Change in speech, Confusion, Seizures Vital Signs Vital Signs Date Time Temp Pulse Resp B/P (MAP) Pulse Ox O2 Delivery O2 Flow Rate FiO2 02/26/25 13:00 98.1 89 20 112/72 (85) 100 98.1 02/26/25 08:58 Nasal Cannula* 2 28 Physical Exam General appearance: Patient is well-developed, well-nourished, in no acute distress. HEENT: Exam shows: Normocephalic, atraumatic, PERRLA, EOMI Neck: Supple, no bruits Chest: Equal chest excursion bilaterally. Breath sounds diminished Heart: Rhythm: Regular rate; no murmur or gallop Abdomen: Exam shows: Soft, nontender, nondistended Musculoskeletal: No clubbing, no cyanosis, no lower extremity edema Dermatology: Skin warm, moist. Neurological: Exam shows: Alert and oriented x4, normal speech Available prior records, labs, EKG, rhythm strips reviewed and interpreted Labs/Diagnostic Data Labs Test 02/25/25 05:46 02/24/25 17:07 02/24/25 10:17 02/24/25 06:42 Range/Units White Blood Count 6.0 4.4-10.8 10^3/uL Red Blood Count 5.22 4.5-5.90 10^6/uL Hemoglobin 15.8 13.5-17.5 g/dL Hematocrit 47.3 41.0-53.0 % Mean Corpuscular Volume 90.6 80.0-100.0 fL Mean Corpuscular Hemoglobin 30.2 28.0-32.0 pg Mean Corpuscular Hemoglobin Concent 33.4 32.0-36.0 g/dL Red Cell Distribution Width 16.2 H 11.8-14.3 % Platelet Count 217 140-450 10^3/uL Mean Platelet Volume 8.6 6.9-10.8 fL Neutrophils (%) (Auto) 59.7 37.0-80.0 % Lymphocytes (%) (Auto) 18.1 10.0-50.0 % Monocytes (%) (Auto) 13.5 H 0.0-12.0 % Eosinophils (%) (Auto) 7.1 H 0.0-7.0 % Basophils (%) (Auto) 1.6 0.0-2.0 % Neutrophils # (Auto) 3.6 1.6-8.6 10 ^3/uL Lymphocytes # (Auto) 1.1 0.4-5.4 10 ^3/uL Monocytes # (Auto) 0.8 0-1.3 10 ^3/uL Eosinophils # (Auto) 0.4 0-0.8 10 ^3/uL Basophils # (Auto) 0.1 0-0.2 10 ^3/uL Nucleated Red Blood Cells 0.3 % Sodium Level 140 # 136-145 mmol/L Potassium Level 4.1 3.5-5.1 mmol/L Chloride Level 103 98-107 mmol/L Carbon Dioxide Level 26 20-31 mmol/L Anion Gap 11 5-15 Blood Urea Nitrogen 23 9-23 mg/dL Creatinine 1.72 H 0.700-1.30 mg/dL Glomerular Filtration Rate Calc 44 >90 mL/min BUN/Creatinine Ratio 13.4 10.0-20.0 Serum Glucose 94 74-106 mg/dL Calcium Level 8.7 8.7-10.4 mg/dL Total Bilirubin 1.2 H 0.2-1.0 mg/dL Aspartate Amino Transferase (AST) 27 13-40 U/L Alanine Aminotransferase (ALT) 25 7-40 U/L Alkaline Phosphatase 62 46-116 U/L Total Protein 6.2 5.7-8.2 g/dL Albumin 3.7 3.2-4.8 g/dL POC Glucose 99 70-106 mg/dl Troponin I High Sensitivity 37 </=54 ng/L B-Type Natriuretic Peptide 652.18 0-100 pg/mL Test 02/24/25 06:18 Range/Units Urine Color Yellow Yellow Urine Clarity Clear Clear Urine pH 5.0 5.0-9.0 Urine Specific [place] 1.028 1.001-1.035 Urine Protein Negative Negative Urine Ketones Negative Negative Urine Blood Negative Negative /uL Urine Nitrite Negative Negative Urine Bilirubin Negative Negative Urine Urobilinogen Normal Negative mg/dL Urine Leukocyte Esterase Negative Negative /uL Urine RBC 1 0 - 3 /hpf Urine Microscopic WBC < 1 0-3 /HPF Urine Squamous Epithelial Cells None seen <5 /hpf Urine Bacteria None seen None Seen /hpf Urine Glucose 1+ H Normal mg/dL Urine Opiates Screen Neg NEGATIVE Urine Fentanyl Screen Neg NEGATIVE Urine Barbiturates Screen Neg NEGATIVE Urine Phencyclidine Screen Neg NEGATIVE Urine Amphetamines Screen Neg NEGATIVE Urine Benzodiazepines Screen Neg NEGATIVE Urine Cocaine Screen Neg NEGATIVE Urine Cannabinoids Screen Neg NEGATIVE Microbiology Date/Time Source Procedure Growth Status 02/25/25 06:25 Nose MRSA Screen - Final Complete Assessment * Acute on chronic HFrEF- being diuresed with Lasix 40 mg IV daily. Patient now breathing stable on room air. States feels better. Seems to be more euvolemic. * Nonischemic cardiomyopathy - continue guideline directed medical therapy with Entresto 24/26 p.o. twice daily, carvedilol 6.25 mg p.o. twice daily, resume home dose Lasix 40 mg p.o. daily on DC. * HX LV thrombus - was recent echo 02/09/2025 showing LVEF less than 50%, no obvious thrombus identified. Continued on Eliquis 5 mg p.o. twice daily. Endorses compliance. * Acute hypoxic respiratory failure - resolved, currently on room air. * Remote history of amphetamine abuse - UDS negative, encouraged continues cessation of drug use * M[place] and CKD - monitoring with diuresis. Switch to p.o. Lasix once euvolemic. Case Discussed with Dr Jeffers. Patient seems to be more euvolemic, plan to switch to p.o. Lasix on DC. Remote history of LV thrombus with most recent echo noting no obvious signs of thrombus. Continue anticoagulation therapy. Patient scheduled for follow up with his currency examiner in the next couple of days for stepan bland he sees Dr. Montalvo. Recommend continuing outpatient follow up. There is no further cardiac work-up indicated at this time. Thank you for allowing us to participate in this patient's care. Will sign off. Critical care, time spent: 40 minutes This medical document was created using an electronic medical record system with voice recognition software and computerized dictation system. Although this document has been carefully reviewed, there might still be some phonetic and typographical errors. Occasional wrong-word or ``sound-alike substitutions may have occurred due to the inherent limitations of voice recognition software. These areas are purely typographical due to imperfections of the software programs and do not reflect any compromise in the patient's medical care. Please read the chart carefully and recognize, using context, where these substitutions have occurred. Thank you for allowing me to participate in the management of this patient. The treatment plan was discussed with and agreed upon by patient/family including requesting consultants and ordering of imaging/procedures. Plan discussed with: Patient NYHA Physical activity limitations: Class3(Marked) ordinary Date of Service: Feb 26, 2025 Billing Provider: GARRICK PETTY Cardiology Common Codes: [id number] INP/OBS CARE (High), [id number] CARE 30-74 MIN GARRICK PETTY Feb 26, 2025 15:25
--- NOTE | 2025-02-26 19:13 | DVHINCON2 ---
Date of service: Feb 27, 2025 History of Present Illness 64 yo M with NICM, hx of drug abuse, hx of LV thrombus on off label doac, admitted for sob and ADHF. Past Medical History reviewed Family History: Alcoholism FH: arrhythmia G8 MOTHER FH: breast cancer G8 SISTER, , Cause: [place] (myocardial infarction) FH: diabetes mellitus FH: heart attack G8 FATHER, , Cause: [place] (myocardial infarction) G8 BROTHER, , Cause: [place] (myocardial infarction) Family history: Cardiovascular disease G8 FATHER, , Cause: [place] (myocardial infarction), Onset:40 - Family history: Diabetes mellitus G8 MOTHER, Onset:40 - 50 G8 FATHER, , Cause: [place] (myocardial infarction) G8 SISTER, , Cause: [place] (myocardial infarction) Sister Allergies: Coded Allergies: Empagliflozin (Verified Allergy, Severe, 07/24/24) Morphine (Unverified Allergy, Unknown, 04/18/22) SEVERE BRADYCARDIA Sulfamethoxazole w/Trimethoprim (Verified Allergy, Unknown, 11/06/24) Home Meds Active Scripts Aspirin (Aspirin Low Dose) 81 Mg Tab, 81 MG PO DAILY for 30 Days, #30 TAB Prov:MANJULA LAN [employer] ROLLER OPERATOR 07/12/24 Potassium Chloride (Potassium Chloride ER) 10 Meq Tab, 10 MEQ PO BID for 30 Days, #60 TAB Prov:MANJULA LAN [employer] ROLLER OPERATOR 07/11/24 Furosemide (Lasix) 40 Mg Tab, 40 MG PO BID for 30 Days, #60 TAB Prov:MANJULA LAN [employer] ROLLER OPERATOR 07/11/24 Sacubitril-Valsartan (Entresto 24-26 mg) 1 Tab Tab, 1 TAB PO BID, #180 TAB Prov:EUN LI MD 09/16/23 Reported Medications Apixaban Base (ELIQUIS) 5 Mg Tab, 1 TAB PO BID 01/16/25 Tiotropium [place] Monohydrate (Spiriva Respimat) 1.25 Mcg/Act Aer, 2 PUFF INH DAILY for 90 Days, #12 12/22/24 Carvedilol (Carvedilol) 6.25 Mg Tab, 1 TAB PO BID for 90 Days, #180 12/22/24 Dapagliflozin Propanediol (Farxiga) 10 Mg Tab, 10 MG PO DAILY, TAB 12/22/24 Levothyroxine Sodium (Levothyroxine Sodium) 137 Mcg Tab, 1 TAB PO DAILY for 70 Days, #70 07/25/24 Tamsulosin Hcl (Tamsulosin Hcl) 0.4 Mg Cap, 0.8 MG PO DAILY AFTER MEAL for 180 Days, #90 09/14/23 Review of Systems 10 pt ros otherwise negative Vital Signs Vital Signs Date Time Temp Pulse Resp B/P (MAP) Pulse Ox O2 Delivery O2 Flow Rate FiO2 02/26/25 17:00 98.0 68 18 110/64 (79) 99 98.0 02/26/25 10:00 Nasal Cannula 2.0 02/26/25 10:00 28 Physical Exam nad s1 s2 rrr ctab soft nt/nd trivial edema Labs/Diagnostic Data Labs Test 02/25/25 05:46 02/24/25 17:07 02/24/25 10:17 02/24/25 06:42 Range/Units White Blood Count 6.0 4.4-10.8 10^3/uL Red Blood Count 5.22 4.5-5.90 10^6/uL Hemoglobin 15.8 13.5-17.5 g/dL Hematocrit 47.3 41.0-53.0 % Mean Corpuscular Volume 90.6 80.0-100.0 fL Mean Corpuscular Hemoglobin 30.2 28.0-32.0 pg Mean Corpuscular Hemoglobin Concent 33.4 32.0-36.0 g/dL Red Cell Distribution Width 16.2 H 11.8-14.3 % Platelet Count 217 140-450 10^3/uL Mean Platelet Volume 8.6 6.9-10.8 fL Neutrophils (%) (Auto) 59.7 37.0-80.0 % Lymphocytes (%) (Auto) 18.1 10.0-50.0 % Monocytes (%) (Auto) 13.5 H 0.0-12.0 % Eosinophils (%) (Auto) 7.1 H 0.0-7.0 % Basophils (%) (Auto) 1.6 0.0-2.0 % Neutrophils # (Auto) 3.6 1.6-8.6 10 ^3/uL Lymphocytes # (Auto) 1.1 0.4-5.4 10 ^3/uL Monocytes # (Auto) 0.8 0-1.3 10 ^3/uL Eosinophils # (Auto) 0.4 0-0.8 10 ^3/uL Basophils # (Auto) 0.1 0-0.2 10 ^3/uL Nucleated Red Blood Cells 0.3 % Sodium Level 140 # 136-145 mmol/L Potassium Level 4.1 3.5-5.1 mmol/L Chloride Level 103 98-107 mmol/L Carbon Dioxide Level 26 20-31 mmol/L Anion Gap 11 5-15 Blood Urea Nitrogen 23 9-23 mg/dL Creatinine 1.72 H 0.700-1.30 mg/dL Glomerular Filtration Rate Calc 44 >90 mL/min BUN/Creatinine Ratio 13.4 10.0-20.0 Serum Glucose 94 74-106 mg/dL Calcium Level 8.7 8.7-10.4 mg/dL Total Bilirubin 1.2 H 0.2-1.0 mg/dL Aspartate Amino Transferase (AST) 27 13-40 U/L Alanine Aminotransferase (ALT) 25 7-40 U/L Alkaline Phosphatase 62 46-116 U/L Total Protein 6.2 5.7-8.2 g/dL Albumin 3.7 3.2-4.8 g/dL POC Glucose 99 70-106 mg/dl Troponin I High Sensitivity 37 </=54 ng/L B-Type Natriuretic Peptide 652.18 0-100 pg/mL Test 02/24/25 06:18 Range/Units Urine Color Yellow Yellow Urine Clarity Clear Clear Urine pH 5.0 5.0-9.0 Urine Specific [place] 1.028 1.001-1.035 Urine Protein Negative Negative Urine Ketones Negative Negative Urine Blood Negative Negative /uL Urine Nitrite Negative Negative Urine Bilirubin Negative Negative Urine Urobilinogen Normal Negative mg/dL Urine Leukocyte Esterase Negative Negative /uL Urine RBC 1 0 - 3 /hpf Urine Microscopic WBC < 1 0-3 /HPF Urine Squamous Epithelial Cells None seen <5 /hpf Urine Bacteria None seen None Seen /hpf Urine Glucose 1+ H Normal mg/dL Urine Opiates Screen Neg NEGATIVE Urine Fentanyl Screen Neg NEGATIVE Urine Barbiturates Screen Neg NEGATIVE Urine Phencyclidine Screen Neg NEGATIVE Urine Amphetamines Screen Neg NEGATIVE Urine Benzodiazepines Screen Neg NEGATIVE Urine Cocaine Screen Neg NEGATIVE Urine Cannabinoids Screen Neg NEGATIVE Microbiology Date/Time Source Procedure Growth Status 02/25/25 06:25 Nose MRSA Screen - Final Complete Assessment tachycardia PVCs nyha class III HF lv thrombus ckd non compliance Plan/Recommendation bnp elevated, iv lasix cont GDMT for HF cont eliquis, last echo didnt shows lv clot but still recommend for now 6 months pt agrees to plan Plan discussed with: Patient DEREK SERRANO MD Feb 26, 2025 19:13
[2025-02-27] VITALS (9 sets, daily range): BP systolic 98–121; BP diastolic 68–97; PULSE 73–90; RESP 18–19; TEMP 96.1–98.1; O2SAT 94–99
--- NOTE | 2025-02-27 12:27 | DVHPN2 ---
Reviewed: Care Plan, H&P, Labs, Medications, Previous Orders, Radiology Changes from previous H/P or p: No Changes Eyes: No Pain, No Vision change, No Conjunctivae inflammation, No Eyelid inflammation, No Other, No Redness ENT: No Ear pain, No Ear discharge, No Nose pain, No Nose discharge, No Nose congestion, No Mouth pain, No Mouth swelling, No Throat pain, No Throat swelling, No Other Cardiovascular: Chest Pain; No Palpitations, No Orthopnea, No Paroxysmal Noc. Dyspnea, No Edema, No Lt Headedness, No Other Respiratory: No Cough, No Dry; Shortness of breath, SOB with excertion; No Wheezing, No Hemoptysis, No Pleuritic Pain, No Sputum, No Other Gastrointestinal: No Nausea, No Vomiting, No Abdominal Pain, No Diarrhea, No Constipation, No Melena, No Hematochezia, No Other Genitourinary: No Dysuria, No Frequency, No Incontinence, No Hematuria, No Retention, No Other Musculoskeletal: No other, No neck pain, No shoulder pain, No arm pain, No back pain, No hand pain, No leg pain, No foot pain Skin: No Rash, No Lesions, No Jaundice, No Bruising, No Other Objective Vitals Vital Signs Date Time Temp Pulse Resp B/P (MAP) Pulse Ox O2 Delivery O2 Flow Rate FiO2 02/27/25 10:00 82 95/61 02/27/25 08:28 96 Room Air 02/27/25 08:28 0 21 02/27/25 05:00 98.1 18 98.1 Intake/Output Intake and Output 02/27/25 07:00 Intake Total 1306 ml Output Total 1500 ml Balance -194 ml Intake Oral 1306 ml Output Urine Total 1500 ml # Voids 8 # Bowel Movements 1 Medications Current Medications Medications Dose Ordered Sig/Manuel Route Start Time Stop Time Status Last Admin Dose Admin Sodium Chloride 10 ml Q8HR IV 02/24/25 22:00 02/27/25 05:39 10 ML Acetaminophen/ Hydrocodone Bitart 1 tab Q4HP PRN PO 02/24/25 15:15 02/27/25 10:56 1 TAB Ondansetron HCl 4 mg Q4HP PRN IV 02/24/25 15:15 Docusate Sodium 100 mg BIDPRN PRN PO 02/24/25 15:15 Acetaminophen 650 mg Q6HP PRN PO 02/24/25 15:15 02/26/25 23:32 650 MG Nitroglycerin 0.4 mg Q5MINP PRN SL 02/24/25 15:15 Morphine Sulfate 2 mg Q30M PRN IV 02/24/25 15:15 Hold Furosemide 40 mg DAILY IV 02/25/25 10:00 02/26/25 12:34 40 MG Apixaban 5 mg BID PO 02/24/25 22:00 02/27/25 10:50 5 MG Aspirin 81 mg DAILY PO 02/25/25 10:00 02/27/25 10:50 81 MG Sacubitril/ Valsartan 1 tab BID PO 02/24/25 22:00 02/26/25 21:05 1 TAB Tamsulosin HCl 0.8 mg HS PO 02/24/25 22:00 02/26/25 21:05 0.8 MG Carvedilol 6.25 mg BID PO 02/24/25 22:00 02/24/25 22:59 6.25 MG Patient Own Medication 10 mg DAILY PO 02/25/25 10:00 Levothyroxine Sodium 112 mcg QAM@0600 PO 02/25/25 06:00 02/27/25 05:35 112 MCG Levothyroxine Sodium 25 mcg QAM@0600 PO 02/25/25 06:00 02/27/25 05:35 25 MCG Ipratropium Prim 0.5 mg Q6HPRN PRN NEB 02/24/25 18:15 02/25/25 11:00 0.5 MG Albuterol 2.5 mg Q6HPRN PRN NEB 02/24/25 18:15 02/25/25 11:00 2.5 MG Diphenhydramine HCl 25 mg Q6HP PRN PO 02/25/25 14:15 02/27/25 05:35 25 MG Laboratory Results Laboratory Tests 02/25/25 05:46 Urinalysis Test 02/24/25 06:18 Urine Color Yellow (Yellow) Urine Clarity Clear (Clear) Urine pH 5.0 (5.0-9.0) Urine Specific [place] 1.028 (1.001-1.035) Urine Protein Negative (Negative) Urine Ketones Negative (Negative) Urine Blood Negative /uL (Negative) Urine Nitrite Negative (Negative) Urine Bilirubin Negative (Negative) Urine Urobilinogen Normal mg/dL (Negative) Urine Leukocyte Esterase Negative /uL (Negative) Urine RBC 1 /hpf (0 - 3) Urine Microscopic WBC < 1 /HPF (0-3) Urine Squamous Epithelial Cells None seen /hpf (<5) Urine Bacteria None seen /hpf (None Seen) Urine Glucose 1+ mg/dL (Normal) H Microbiology Microbiology Date/Time Source Procedure Growth Status 02/25/25 06:25 Nose MRSA Screen - Final Complete Labs and/or images reviewed: Labs reviewed by me, Image(s) reviewed by me Assessment/Plan Assessment/Plan Nonischemic cardiomyopathy Left ventricular thrombus: Eliquis for six months, cardiology consult by Dr. Montalvo appreciated Medication noncompliance Chronic current alcohol abuse: Counseled nyha class III hf Lasix Entresto Coreg ckd meth abuse : Counseling Physical therapy ordered [facility] be [facility] Plan discussed with: Patient Date of Service: Feb 27, 2025 Billing Provider: EUN LI MD Common Visit Codes: [id number] INP/OBS CARE(HIGH) EUN LI MD Feb 27, 2025 12:27
--- NOTE | 2025-02-27 12:39 | DVHDS2 ---
Discharge Summary Date of Admission Feb 24, 2025 at 15:13 Date of Discharge: Feb 27, 2025 Admitting Diagnosis Chest pain and shortness of breath Wounds: none Labs/Diagnostic Data: Laboratory Results Test 02/25/25 05:46 02/24/25 17:07 02/24/25 10:17 02/24/25 06:42 White Blood Count 6.0 10^3/uL (4.4-10.8) Red Blood Count 5.22 10^6/uL (4.5-5.90) Hemoglobin 15.8 g/dL (13.5-17.5) Hematocrit 47.3 % (41.0-53.0) Mean Corpuscular Volume 90.6 fL (80.0-100.0) Mean Corpuscular Hemoglobin 30.2 pg (28.0-32.0) Mean Corpuscular Hemoglobin Concent 33.4 g/dL (32.0-36.0) Red Cell Distribution Width 16.2 % (11.8-14.3) Platelet Count 217 10^3/uL (140-450) Mean Platelet Volume 8.6 fL (6.9-10.8) Neutrophils (%) (Auto) 59.7 % (37.0-80.0) Lymphocytes (%) (Auto) 18.1 % (10.0-50.0) Monocytes (%) (Auto) 13.5 % (0.0-12.0) Eosinophils (%) (Auto) 7.1 % (0.0-7.0) Basophils (%) (Auto) 1.6 % (0.0-2.0) Neutrophils # (Auto) 3.6 10 ^3/uL (1.6-8.6) Lymphocytes # (Auto) 1.1 10 ^3/uL (0.4-5.4) Monocytes # (Auto) 0.8 10 ^3/uL (0-1.3) Eosinophils # (Auto) 0.4 10 ^3/uL (0-0.8) Basophils # (Auto) 0.1 10 ^3/uL (0-0.2) Nucleated Red Blood Cells 0.3 % Sodium Level 140 mmol/L (136-145) Potassium Level 4.1 mmol/L (3.5-5.1) Chloride Level 103 mmol/L (98-107) Carbon Dioxide Level 26 mmol/L (20-31) Anion Gap 11 (5-15) Blood Urea Nitrogen 23 mg/dL (9-23) Creatinine 1.72 mg/dL (0.700-1.30) Glomerular Filtration Rate Calc 44 mL/min (>90) BUN/Creatinine Ratio 13.4 (10.0-20.0) Serum Glucose 94 mg/dL (74-106) Calcium Level 8.7 mg/dL (8.7-10.4) Total Bilirubin 1.2 mg/dL (0.2-1.0) Aspartate Amino Transferase (AST) 27 U/L (13-40) Alanine Aminotransferase (ALT) 25 U/L (7-40) Alkaline Phosphatase 62 U/L (46-116) Total Protein 6.2 g/dL (5.7-8.2) Albumin 3.7 g/dL (3.2-4.8) POC Glucose 99 mg/dl (70-106) Troponin I High Sensitivity 37 ng/L (</=54) B-Type Natriuretic Peptide 652.18 pg/mL (0-100) Test 02/24/25 06:18 Urine Color Yellow (Yellow) Urine Clarity Clear (Clear) Urine pH 5.0 (5.0-9.0) Urine Specific [place] 1.028 (1.001-1.035) Urine Protein Negative (Negative) Urine Ketones Negative (Negative) Urine Blood Negative /uL (Negative) Urine Nitrite Negative (Negative) Urine Bilirubin Negative (Negative) Urine Urobilinogen Normal mg/dL (Negative) Urine Leukocyte Esterase Negative /uL (Negative) Urine RBC 1 /hpf (0 - 3) Urine Microscopic WBC < 1 /HPF (0-3) Urine Squamous Epithelial Cells None seen /hpf (<5) Urine Bacteria None seen /hpf (None Seen) Urine Glucose 1+ mg/dL (Normal) Urine Opiates Screen Neg (NEGATIVE) Urine Fentanyl Screen Neg (NEGATIVE) Urine Barbiturates Screen Neg (NEGATIVE) Urine Phencyclidine Screen Neg (NEGATIVE) Urine Amphetamines Screen Neg (NEGATIVE) Urine Benzodiazepines Screen Neg (NEGATIVE) Urine Cocaine Screen Neg (NEGATIVE) Urine Cannabinoids Screen Neg (NEGATIVE) Other Laboratory Tests 02/25/25 05:46 Brief Hx & Hospital Course: 64-year-old male history of frequent admissions and leaving against medical advice came in complaining of shortness of breaths and chest pain. Troponin negative x3 patient has a history of nonischemic cardiomyopathy and congestive heart failure he also has a history of left ventricular thrombus treated with the Eliquis cardiology Dr. Montalvo advised patient to continue on Eliquis for six months patient has a class three heart failure placed on Lasix Entresto and Coreg . The patient was counseled about quitting methamphetamine Patient is noncompliant with the medications resulting in frequent admitted to the hospital [facility] physical therapy medication management Plan is acceptable to the patient Consults/Reason for consult Cardiology Dr Montalvo Operations or Procedures None Condition at Discharge: Fair Final Diagnosis/Problems List Nonischemic cardiomyopathy Left ventricular thrombus: Eliquis for six months, cardiology consult by Dr. Montalvo appreciated Medication noncompliance Chronic current alcohol abuse: Counseled nyha class III hf Lasix Entresto Coreg ckd meth abuse : Counseling [facility]charge [facility] Discharge Instruct/Medications Diet: Cardiac 2g Na,low cholest Activity: Light activity Follow Up/Referral: Follow up with the jail Dr Medications: see list Scheduled Apixaban Base (Eliquis), 1 TAB PO BID, (Reported) Aspirin (Aspirin Low Dose), 81 MG PO DAILY Carvedilol (Carvedilol), 1 TAB PO BID, (Reported) Dapagliflozin Propanediol (Farxiga), 10 MG PO DAILY, (Reported) Furosemide (Lasix), 40 MG PO BID Levothyroxine Sodium (Levothyroxine Sodium), 1 TAB PO DAILY, (Reported) Potassium Chloride (Potassium Chloride ER), 10 MEQ PO BID Sacubitril-Valsartan (Entresto 24-26 mg), 1 TAB PO BID Tamsulosin Hcl (Tamsulosin Hcl), 0.8 MG PO DAILY AFTER MEAL, (Reported) Tiotropium [place] Monohydrate (Spiriva Respimat), 2 PUFF INH DAILY, (Reported) 39 (Time taken for discharge summary 39 minutes) Discharge Statement: "Patient was advised to return to the ER or call 911 if any headaches, dizziness, shortness of breath, chest pain, abdominal pain, bleeding, fevers, or worsening of medical condition. Patient was counseled about treatment plan, medications, possible side effects, patientverbalized understanding. All questions were answered to the best of my ability. This discharge took greater then 30 minutes in planning, reviewing documentation, counseling the patient, and discussing with other team members." ASSESSMENT ASSESSMENT Assessment Nonischemic cardiomyopathy Left ventricular thrombus: Eliquis for six months, cardiology consult by Dr. Montalvo appreciated Medication noncompliance Chronic current alcohol abuse: Counseled nyha class III hf Lasix Entresto Coreg ckd meth abuse : Counseling Date of Service: Feb 27, 2025 Billing Provider: EUN LI MD Common Visit Codes: [id number] DISCH DAY >30min EUN LI MD Feb 27, 2025 12:39
== END 2025-02-27 18:52 | DRG 682 ==
LOC: ER 05:49 → EDBD 05:49 → OVERFLOW 15:13 → TELE-WESTW 22:29
PROVIDERS: ADMIT Family Medicine; ATTEND Family Medicine
DX: N17.9 Acute kidney failure, unspecified (principal); I50.23 Acute on chronic systolic (congestive) heart failure; J96.01 Acute respiratory failure with hypoxia; I13.0 Hypertensive heart and chronic kidney disease with heart failure and stage 1 through stage 4 chronic kidney disease, or unspecified chronic kidney disease; I42.8 Other cardiomyopathies; J44.9 Chronic obstructive pulmonary disease, unspecified; N18.9 Chronic kidney disease, unspecified; I25.10 Atherosclerotic heart disease of native coronary artery without angina pectoris; E78.5 Hyperlipidemia, unspecified; E11.22 Type 2 diabetes mellitus with diabetic chronic kidney disease; F41.9 Anxiety disorder, unspecified; F32.A Depression, unspecified; I49.3 Ventricular premature depolarization; F15.10 Other stimulant abuse, uncomplicated; F10.10 Alcohol abuse, uncomplicated; Y90.9 Presence of alcohol in blood, level not specified; K21.9 Gastro-esophageal reflux disease without esophagitis; I25.2 Old myocardial infarction; Z88.3 Allergy status to other anti-infective agents; Z88.5 Allergy status to narcotic agent; Z87.891 Personal history of nicotine dependence; Z79.899 Other long term (current) drug therapy; Z79.01 Long term (current) use of anticoagulants; Z91.148 Patient's other noncompliance with medication regimen for other reason; Z80.3 Family history of malignant neoplasm of breast; Z83.3 Family history of diabetes mellitus; Z82.49 Family history of ischemic heart disease and other diseases of the circulatory system
CPT/HCPCS: 36415; 71045; 80048; 80053; 80307; 81001; 82962; 83880; 84484; 85025; 87081; 93005; 94640; 99291; 99292; G0378